=== PATIENT | female | born 1965 | race African-American/Black ===

== ENCOUNTER → 2016-02-23 | Outpatient (CLI) | payer MEDICARE, MEDICAID ==
--- NOTE | 2016-02-23 16:39 | XCELERA REPORT ---
[address] [address] Lower Extremity Venous Evaluation Name: JASPREET STAFFORD Age: 50 yrs Gender: Female : 1965 Patient Status: Outpatient Patient Location: Study Date: 02/23/2016 02:59 PM Procedure: Color flow and duplex imaging of the veins of the right lower extremity as well as the left Common Femoral vein. Reason For Study: PAIN IN RLE Ordering Physician: JULIA GOMEZ PA-C Performed By: Jo Wallace Right Sided Venous Evaluation Normal vessel filling wall to wall, compression and augmentation as well as Colour flow down to the infrageniculate veins. Left Sided Venous Evaluation The left common femoral vein is fully compressible. Spontaneous and phasic flow is present in the left common femoral vein. Interpretation Summary No duplex evidence of DVT or obstruction in the right lower extremity nor in the left Common Femoral vein. : JULIA GOMEZ PA-C > Aron Soriano
== END ==
LOC: SP 14:28
PROVIDERS: ATTEND Physician Assistant
DX: M79.661 Pain in right lower leg (principal)
CPT/HCPCS: 93971

== ENCOUNTER 2016-04-09 14:42 | Inpatient (IN) | payer MEDICARE, MEDICAID ==
[2016-04-09] MEDS ORDERED: HYDRALAZINE HCL INJ/PF 20 MG/1 ML SDV IV ONE (15:22)
[2016-04-09] MEDS ORDERED: ALBUTEROL SULFATE 0.083% NEB 2.5 MG/3 ML AMPUL NEB ONE (15:22)
--- NOTE | 2016-04-09 15:29 | ER Document Report ---
ED General - General Chief Complaint: Shortness Of Breath Stated Complaint: SHORTNESS OF BREATH Mode of Arrival: Medic Information source: Patient Notes: This is a 50-year-old -[place] female with a history of end-stage renal disease who is on daily peritoneal dialysis which she reports compliance with fluid sent to the ER from [facility] dialysis center after she presented for blood work and evaluation. While she was there she reported shortness of breath and a 20 pound weight gain and so she was sent to the ER for further evaluation. She was also noted to be hypertensive with a blood pressure systolic over 200 yet she reports compliance with her multiple antihypertensive medications. She does state that she has had constant sharp pains in her chest for several weeks. These pains are worse with coughing. She states she was seen by her primary care physician last week and started on some antibiotics for an upper respiratory infection. She's had no fevers or chills. She denies any abdominal pain. She has not been vomiting and she has been tolerating by mouth. Her last by mouth was a breakfast burrito from [employer] this morning. She states that she can tell when she is in volume overload because she has difficulty sleeping at night secondary to paroxysmal nocturnal dyspnea. TRAVEL OUTSIDE OF THE [place] IN LAST 30 DAYS: No - Related Data Allergies/Adverse Reactions: codeine [Codeine] Allergy (Verified 11/15/15 15:59) Nausea oxycodone HCl [From Percocet] Allergy (Verified 11/15/15 15:59) Nausea prochlorperazine edisylate [From Compazine] Allergy (Verified 11/15/15 15:59) Hallucinations prochlorperazine maleate [From Compazine] Allergy (Verified 11/15/15 15:59) Hallucinations propoxyphene napsylate [From Darvocet-N 100] Allergy (Verified 11/15/15 15:59) Past Medical History - General Information source: Patient, [facility]LY [facility] Records - Social History Smoking Status: Unknown if Ever Smoked Family History: Reviewed & Not Pertinent - Past Medical History Cardiac Medical History: Reports: Hx Congestive Heart Failure, Hx Hypercholesterolemia, Hx Hypertension Denies: Hx Heart Attack Pulmonary Medical History: Reports: Hx Pneumonia Denies: Hx Asthma, Hx Bronchitis, Hx COPD Neurological Medical History: Denies: Hx Seizures Endocrine Medical History: Reports: Hx Diabetes Mellitus Type 1, Hx Diabetes Mellitus Type 2 Renal/ Medical History: Reports: Hx End Stage Renal Disease, Hx Kidney Stones , Hx Peritoneal Dialysis GI Medical History: Reports: Hx Gastroesophageal Reflux Disease Musculoskeltal Medical History: Denies Hx Arthritis Psychiatric Medical History: Reports: Hx Depression Past Surgical History: Reports: Hx Abdominal Surgery - peritoneal dialysis fistula, Hx Hysterectomy - partial, Hx Tubal Ligation - Immunizations Immunizations up to date: No Hx Diphtheria, Pertussis, Tetanus Vaccination: Yes - 2013 Hx Pneumococcal Vaccination: 11/19/11 Review of Systems - Review of Systems Notes: REVIEW OF SYSTEMS: CONSTITUTIONAL : Denies fever, chills, or sweats. EENT: Denies eye, ear, throat, or mouth pain or symptoms. Denies nasal or sinus congestion. CARDIOVASCULAR: As per history of present illness RESPIRATORY: As per history of present illness GASTROINTESTINAL: Denies abdominal pain. Denies vomiting, or diarrhea. She does endorse nausea. GENITOURINARY: She still makes some urine. Denies difficulty urinating, painful urination, burning, frequency, or blood in urine. MUSCULOSKELETAL: Denies neck or back pain or joint pain SKIN: Denies rash or skin lesions. HEMATOLOGIC : Denies easy bruising or bleeding. NEUROLOGICAL: Denies altered mental status or loss of consciousness. Denies headache. . PSYCHIATRIC: Denies anxiety or stress or depression. ALL OTHER SYSTEMS REVIEWED AND NEGATIVE. Physical Exam - Vital signs Vitals: Pulse Ox 95 04/09/16 15:01 - Notes Notes: PHYSICAL EXAMINATION: GENERAL: Well-appearing, obese, and in no acute distress. Pleasant and conversant with no conversational dyspnea. She does prefer to sit upright. HEAD: Atraumatic, normocephalic. EYES: Pupils equal round and reactive to light, extraocular movements intact, sclera anicteric, conjunctiva are normal. ENT: nares patent, oropharynx clear without exudates. Moist mucous membranes. NECK: Normal range of motion, supple without lymphadenopathy LUNGS: Bibasilar rales. Good air movement bilaterally. No wheezes noted. HEART: Regular rate and rhythm without murmurs ABDOMEN: Soft, obese, nontender, normoactive bowel sounds. No guarding, no rebound. No masses appreciated. EXTREMITIES: Normal range of motion, 1+ pitting edema bilaterally lower extremities symmetric No cyanosis. NEUROLOGICAL: Cranial nerves grossly intact. Motor strength 5 over 5 bilateral upper and lower extremities. Sensation intact. PSYCH: Normal mood, normal affect. Course - Re-evaluation Re-evalutation: 04/09/16 16:49 Patient reevaluated. She states that she is breathing somewhat better after the neb but she still complains of feeling overall "terrible". We discussed her lab results as well as her chest x-ray. At this time I will attempt to get in touch with the patient's physical therapy attendant Dr. Moran. 04/09/16 17:[address] Moran. She agrees to consult and arrange the peritoneal dialysis orders as an inpatient. Discussed with Dr. Horvath who will admit. - Vital Signs Vital signs: Temp Pulse Resp BP Pulse Ox 97 F L 15 175/102 H 98 04/09/16 15:14 04/09/16 16:01 04/09/16 16:01 04/09/16 16:01 - Laboratory Result Diagrams: 04/09/16 15:40 04/09/16 15:40 Laboratory results interpreted by me: 04/09/16 04/09/16 15:40 15:40 Hgb 10.5 L Hct 33.1 L MCH 25.8 L MCHC 31.7 L RDW 19.4 H Chloride 96 L BUN 116 H Creatinine 16.79 H Est GFR ( Amer) 3 L Est GFR (Non-Af Amer) 2 L Glucose 113 H Discharge - Discharge Clinical Impression: End stage renal failure on dialysis Hypertension Qualifiers: Hypertension type: essential hypertension Qualified Code(s): I10 - Essential ( primary) hypertension Hypervolemia Qualifiers: Hypervolemia type: unspecified Qualified Code(s): E87.70 - Fluid overload, unspecified Condition: Fair Disposition: ADMITTED INPATIENT Admitting Provider: Hospitalist - Dr Horvath Unit Admitted: Telemetry
[2016-04-09 16:01] LABS: ABSOLUTE BASOPHILS # (AUTO) 0.1 10^3/uL (0.0-0.2); ABSOLUTE EOSINOPHILS # (AUTO) 0.2 10^3/uL (0.0-0.6); ABSOLUTE LYMPHOCYTES (AUTO) 1.6 10^3/uL (0.5-4.7); ABSOLUTE MONOCYTES (AUTO) 0.8 10^3/uL (0.1-1.4); ABSOLUTE NEUT (AUTO) 5.2 10^3/uL (1.7-8.2); BASOPHILS % (AUTO) 1.5 % (0-2); EOSINOPHILS % (AUTO) 2.7 % (0-6); HEMATOCRIT 33.1 % (36.0-47.0); HEMOGLOBIN 10.5 g/dL (12.0-15.5); HGB HCT DIFFERENCE -1.6; LYMPHOCYTES % (AUTO) 20.5 % (13-45); MEAN CORPUSCULAR HEMOGLOBIN 25.8 pg (27.0-33.4); MEAN CORPUSCULAR HGB CONC 31.7 g/dL (32.0-36.0); MEAN CORPUSCULAR VOLUME 82 fl (80-97); MONOCYTES % (AUTO) 9.7 % (3-13); RED BLOOD COUNT 4.06 10^6/uL (3.72-5.28); RED CELL DISTRIBUTION WIDTH 19.4 % (11.5-14.0); SEGMENTED NEUTROPHILS % (AUTO) 65.6 % (42-78)
[2016-04-09 16:20] LABS: ALANINE AMINOTRANSFERASE 37 U/L (9-52); ALBUMIN 3.8 g/dL (3.5-5.0); ALKALINE PHOSPHATASE 103 U/L (38-126); ANION GAP 17 (5-19); ASPARTATE AMINO TRANSFERASE 32 U/L (14-36); BILIRUBIN,TOTAL 0.5 mg/dL (0.2-1.3); CALCIUM 9.8 mg/dL (8.4-10.2); CARBON DIOXIDE 27 mmol/L (22-30); CHLORIDE 96 mmol/L (98-107); CREATINE KINASE 133 U/L (30-135); GLUCOSE 113 mg/dL (75-110); SODIUM 139.7 mmol/L (137-145)
[2016-04-09 16:28] LABS: BLOOD UREA NITROGEN 116 mg/dL (7-20)
[2016-04-09 16:29] LABS: CREATININE RESULT 16.79 mg/dL (0.52-1.25)
[2016-04-09 16:30] LABS: CREATINE KINASE MB 2.82 ng/mL (<4.55)
[2016-04-09 16:31] LABS: TROPONIN I 0.053 ng/mL
[2016-04-09] MEDS ORDERED: ONDANSETRON 4 MG TAB.RAPDIS PO PRN (17:49)
[2016-04-09] MEDS ORDERED: DEXTROSE 50%-WATER 25 GM/50 ML DISP.SYRIN IV PRN ×2 (17:52)
[2016-04-09] MEDS ORDERED: DEXTROSE 40% GEL 15 GM TUBE PO PRN ×2 (17:52)
[2016-04-09] MEDS ORDERED: GLUCAGON,HUMAN RECOMB 1 MG INJ IM PRN (17:52)
[2016-04-09] MEDS ORDERED: CARVEDILOL PO SCH (18:00)
--- NOTE | 2016-04-09 18:10 | PDOC H&P ---
History of Present Illness Admission Date/PCP: CALVIN MELGAR DO Patient complains of: Shortness of breath and weight gain History of Present Illness: JASPREET STAFFORD is a 50 year old female with a history of type I diabetes with diabetic nephropathy on chronic peritoneal dialysis who presents with signs and symptoms of congestive heart failure. The patient reports that over the last several days she's had worsening shortness of breath as well as orthopnea and PND. She also reports having some lower extremity edema and has about 15 feet dyspnea on exertion. The patient has been doing her peritoneal dialysis as usual however she went to [facility] today and was found to have a 20 pound weight gain by her report. Patient with Cipro and is here and the patient is to be evaluated by nephrology for evaluation of her heart failure. The patient has had chest pain for the last several days but reports that it's been a sharp stabbing pain located in the substernal area. This last only a few seconds and then resolves and is not related to exertion. She reports that she has been compliant with her peritoneal dialysis regiment and has been doing her fluid exchanges as she always has done. She denies any abdominal pain and denies any change in the color of her peritoneal dialysate. She is noted have very elevated blood pressures and she does report that she has been compliant with her medications. Past Medical History Cardiac Medical History: Reports: Congestive Heart Failure, Hyperlipidema, Hypertension Denies: Myocardial Infarction Pulmonary Medical History: Reports: Asthma, Pneumonia Denies: Bronchitis, Chronic Obstructive Pulmonary Disease (COPD) EENT Medical History: Reports: None Neurological Medical History: Reports: None Denies: Seizures Endocrine Medical History: Reports: Diabetes Mellitus Type 1 Renal/ Medical History: Reports: End Stage Renal Disease Malignancy Medical History: Reports: None GI Medical History: Reports: Gastroesophageal Reflux Disease Musculoskeltal Medical History: Denies: Arthritis Psychiatric Medical History: Reports: Depression Traumatic Medical History: Reports: None Hematology: Reports: Anemia Infectious Medical History: Reports: None Past Surgical History Past Surgical History: Reports: Hysterectomy - partial, Tubal Ligation Social History Information Source: Patient Lives with: Family Smoking Status: Never Smoker Frequency of Alcohol Use: None Hx Recreational Drug Use: No Drugs: None Hx Prescription Drug Abuse: No - Advance Directive Resuscitation Status: Full Code Family History Family History: Mother 70 alive and has hypertension and coronary artery disease. Father 77 alive and has diabetes, hypertension, chronic renal failure. Parental Family History Reviewed: Yes Children Family History Reviewed: No Sibling(s) Family History Reviewed.: No Medication/Allergy Home Medications: Aspirin [Ecotrin 81 mg EC Tablet] 81 mg PO DAILY 12/04/11 Carvedilol [Coreg] 1 tab PO BID 10/03/13 Hydralazine HCl [Apresoline 50 mg Tablet] 100 mg PO Q8 #0 tablet 10/07/13 Isosorbide Mononitrate [Imdur 30 mg Tablet.er] 30 mg PO DAILY #0 tab.er.24h Calcium Acetate [Phoslo 667 mg Capsule] 667 mg PO MEALS #0 capsule 10/16/13 Furosemide [Lasix 40 mg Tablet] 40 mg PO BID 01/21/14 Insulin Glargine,Hum.rec.anlog [Lantus Insulin 100 Unit/mL] 50 unit SUBCUT QHS 01/22/14 Clonidine HCl [Catapres 0.2 mg Tablet] 0.2 mg PO QHS 11/15/14 Omeprazole [Prilosec] 20 mg PO DAILY 11/15/14 Sevelamer Carbonate [Renvela] 2,100 mg PO AC 11/15/14 Amlodipine Besylate 5 mg PO DAILY 04/12/15 Escitalopram Oxalate [Lexapro 10 mg Tablet] 20 mg PO DAILY 04/12/15 Cetirizine HCl [Zyrtec 10 mg Tablet] 1 tab PO DAILY #15 tablet 04/14/15 Benzonatate [Tessalon Perles 100 mg Capsule] 100 mg PO Q8HP PRN #20 capsule Calcitriol [Rocaltrol 0.25 mcg Capsule] 0.25 mcg PO MoTuWeThFr@1000 capsule Calcitriol [Rocaltrol 0.25 mcg Capsule] 0.5 mcg PO SuSa@1000 capsule 08/08/15 Fluticasone/Salmeterol [Advair 250-50 Diskus 14 Dose/Diskus] 1 inh IH Q12 #1 inhaler 08/08/15 Cyclobenzaprine HCl [Flexeril 10 mg Tablet] 10 mg PO TIDP PRN #10 tab 09/27/15 Hydrocodone/Acetaminophen [[place] 5-325 mg Tablet] 1 - 2 tab PO Q4 PRN #15 tablet 11/09/15 Benzonatate [Tessalon Perle 100 mg Capsule] 100 mg PO Q8HP PRN #40 cap 12/15/15 Allergies/Adverse Reactions: codeine [Codeine] Allergy (Verified 11/15/15 15:59) Nausea oxycodone HCl [From Percocet] Allergy (Verified 11/15/15 15:59) Nausea prochlorperazine edisylate [From Compazine] Allergy (Verified 11/15/15 15:59) Hallucinations prochlorperazine maleate [From Compazine] Allergy (Verified 11/15/15 15:59) Hallucinations propoxyphene napsylate [From Darvocet-N 100] Allergy (Verified 11/15/15 15:59) Review of Systems Constitutional: PRESENT: weight gain. ABSENT: chills, fever(s), headache(s) Eyes: ABSENT: visual disturbances Ears: ABSENT: hearing changes Cardiovascular: PRESENT: chest pain, dyspnea on exertion, edema, orthropnea. ABSENT: palpitations Respiratory: PRESENT: cough, dyspnea. ABSENT: hemoptysis, sputum Gastrointestinal: ABSENT: abdominal pain, constipation, diarrhea, hematemesis, hematochezia, nausea, vomiting Genitourinary: ABSENT: dysuria, hematuria Musculoskeletal: ABSENT: joint swelling Integumentary: ABSENT: rash, wounds Neurological: ABSENT: abnormal gait, abnormal speech, confusion, dizziness, focal weakness, syncope Psychiatric: ABSENT: anxiety, depression Endocrine: ABSENT: cold intolerance, heat intolerance, polydipsia, polyuria Hematologic/Lymphatic: ABSENT: easy bleeding, easy bruising Physical Exam Vital Signs: Temp Pulse Resp BP Pulse Ox 97 F L 12 175/102 H 100 04/09/16 15:14 04/09/16 17:19 04/09/16 16:01 04/09/16 17:19 Intake & Output 04/08/16 04/09/16 04/10/16 06:59 06:59 06:59 Weight 158 kg General appearance: PRESENT: no acute distress, morbidly obese Head exam: PRESENT: atraumatic, normocephalic Eye exam: PRESENT: conjunctiva pink, EOMI, PERRLA. ABSENT: scleral icterus Ear exam: PRESENT: normal external ear exam Mouth exam: PRESENT: moist, tongue midline Neck exam: ABSENT: carotid bruit, JVD, lymphadenopathy, thyromegaly Respiratory exam: PRESENT: clear to auscultation shira. ABSENT: rales, rhonchi, wheezes Cardiovascular exam: PRESENT: RRR. ABSENT: diastolic murmur, rubs, systolic murmur Pulses: PRESENT: normal dorsalis pedis pul Vascular exam: PRESENT: normal capillary refill GI/Abdominal exam: PRESENT: normal bowel sounds, soft, other - Peritoneal dialysis catheter in the left lower quadrant with no tenderness. ABSENT: distended, guarding, mass, organolmegaly, rebound, tenderness Rectal exam: PRESENT: deferred Extremities exam: PRESENT: pedal edema, +2 edema. ABSENT: calf tenderness, clubbing Neurological exam: PRESENT: alert, awake, oriented to person, oriented to place , oriented to time, oriented to situation, CN II-XII grossly intact. ABSENT: motor sensory deficit Psychiatric exam: PRESENT: appropriate affect Skin exam: PRESENT: dry, intact, warm. ABSENT: cyanosis, rash Results Laboratory Results: 04/09/16 15:40 04/09/16 15:40 04/09/16 04/09/16 15:40 15:40 WBC 8.0 RBC 4.06 Hgb 10.5 L Hct 33.1 L MCV 82 MCH 25.8 L MCHC 31.7 L RDW 19.4 H Plt Count 198 Seg Neutrophils % 65.6 Lymphocytes % 20.5 Monocytes % 9.7 Eosinophils % 2.7 Basophils % 1.5 Absolute Neutrophils 5.2 Absolute Lymphocytes 1.6 Absolute Monocytes 0.8 Absolute Eosinophils 0.2 Absolute Basophils 0.1 Sodium 139.7 Potassium 5.0 Chloride 96 L Carbon Dioxide 27 Anion Gap 17 BUN 116 H Creatinine 16.79 H Est GFR ( Amer) 3 L Est GFR (Non-Af Amer) 2 L Glucose 113 H Calcium 9.8 Total Bilirubin 0.5 AST 32 ALT 37 Alkaline Phosphatase 103 Total Protein 7.0 Albumin 3.8 04/09/16 04/09/16 15:40 15:40 Creatine Kinase 133 CK-MB (CK-2) 2.82 Troponin I 0.053 Impressions: Chest X-Ray 04/09/16 14:49 IMPRESSION: No significant interval change. No acute findings. Other findings as noted above Assessment & Plan - Diagnosis (1) Acute congestive heart failure Qualifiers: Congestive heart failure type: unspecified congestive heart failure type Qualified Code(s): I50.9 - Heart failure, unspecified Is this a current diagnosis for this admission?: YesPlan: Patient has a 20 pound weight gain along with orthopnea, PND, dyspnea on exertion consistent with acute congestive heart failure. Patient has a history of a normal ejection fraction but does have diastolic dysfunction. The patient is a peritoneal dialysis patient and Dr. Dhaliwal will be writing dialysis orders. Patient does make some urine so we will give IV Lasix. We will try to lower her blood pressure by adding on nitroglycerin paste. We will continue her outpatient antihypertensives. (2) Chronic renal failure, stage 5 Is this a current diagnosis for this admission?: YesPlan: Patient is followed by Dr. Fleming. Patient is a chronic peritoneal dialysis patient and has been compliant with her regiment. (3) Chest pain Is this a current diagnosis for this admission?: YesPlan: The chest pain appears to be noncardiac by her description however we will check serial cardiac enzymes. Given her congestive heart failure and hypertension most likely be elevated however will follow to make certain that she does not have an acute rise in her cardiac enzymes. (4) Hypertension Qualifiers: Hypertension type: essential hypertension Qualified Code(s): I10 - Essential (primary) hypertension Is this a current diagnosis for this admission?: YesPlan: We'll continue to oral outpatient and hypertensives and had on Lasix IV. Patient also will be added on with Nitropaste to help lower blood pressure (5) Diabetes mellitus type 1 Qualifiers: Diabetes mellitus complication status: with kidney complications Diabetes mellitus complication detail: with chronic kidney disease Chronic kidney disease stage: on chronic dialysis Qualified Code(s): E10.22 - Type 1 diabetes mellitus with diabetic chronic kidney disease; N18.1 - Chronic kidney disease, stage 1 Is this a current diagnosis for this admission?: YesPlan: The patient normally takes Lantus 15 units daily at bedtime. We will continue with that along with sliding scale insulin. (6) Anemia Qualifiers: Anemia type: other cause Other causes of anemia: chronic disease, kidney Qualified Code(s): N18.9 - Chronic kidney disease, unspecified; D63.1 - Anemia in chronic kidney disease Is this a current diagnosis for this admission?: YesPlan: Patient has anemia of chronic disease secondary to her renal failure. - Time Time Spent: 50 to 70 Minutes - Inpatient Certification Medical Necessity: Need Close Monitoring Due to Risk of Patient Decompensation
[2016-04-09] MEDS ORDERED: FUROSEMIDE INJ/PF 100 MG/10 ML SDV IV ONE (20:00)
--- NOTE | 2016-04-09 20:03 | PDOC CONSULTATION ---
Consultation Consult Date: 04/09/16 Attending physician:: KELI HORVATH Consult reason:: I was asked by Dr. Horvath to manage patient with ESRD admitted for worsening pulmonary edema. History of Present Illness Admission Date/PCP: 04/09/16 17:49 CALVIN MELGAR DO History of Present Illness: JASPREET STAFFORD is a 50 year old female with a history of type 2 diabetes with diabetic nephropathy and hypertensive nephrosclerosis on chronic peritoneal dialysis who presents with signs and symptoms of congestive heart failure. The patient reports that over the last several days she's had worsening shortness of breath as well as orthopnea and PND. She also reports having some lower extremity edema and has about 15 feet dyspnea on exertion. The patient has been doing her peritoneal dialysis as usual however she went to [facility] today and was found to have a 20 pound weight gain by her report. The patient has had chest pain for the last several days but reports that it's been a sharp stabbing pain located in the substernal area. This last only a few seconds and then resolves and is not related to exertion. She reports that she has been compliant with her peritoneal dialysis regiment and has been doing her fluid exchanges as she always has done. She denies any abdominal pain and denies any change in the color of her peritoneal dialysate. She is noted have very elevated blood pressures and she does report that she has been compliant with her medications. She also admits that she ate at a [employer] yesterday eating at 12 ounces of steak. Patient tells me that she started with some dry cough but no fever nor chills along with her shortness of breath and some pleuritic chest pain last about days ago. She went to her primary care provider, Tejal Preciado who prescribed her antibiotics which is most likely Z-Alfredito because she has taken her last pill today. She said she couldn't sleep very well especially last night so she was getting up at 3 AM and finally at 6 AM. When she got up at 6 AM her blood pressure was noted to have systolic blood pressure of 200+ over 100+. She went to [facility] for nurse visit and that's when she was noted to be above her dry weight and she complained that she is not really feeling good so our [facility] PD nurses called EMS and she was brought to the emergency room. In terms of her peritoneal dialysis, she does do continuous cycler peritoneal dialysis at night with a last fill option and the midday exchange for a total of 6 exchanges using 2.5 L fill volume. She claims that she is using alternating 4.25 and 2.5% solution and everything was going well. She denies any problem on her peritoneal dialysis regimen. Past Medical History Cardiac Medical History: Reports: CHF-Diastolic, Hyperlipidemia, Hypertension- primary Pulmonary Medical History: Reports: Asthma, Pneumonia, Sleep Apnea Endocrine Medical History: Reports: Diabetes Mellitus Type 2 Complications of Diabetes: Reports: Nephropathy Renal/ Medical History: Reports: End Stage Renal Disease, Hyperphosphatemia, Nephrolithiasis, Renal Osteodystropy, Secondary Hyperparathyroidism GI Medical History: Reports: Gastroesophageal Reflux Disease Psychiatric Medical History: Reports: Depression Hematology Medical History: Reports Anemia of Chronic Kidney Disease Past Surgical History Past Surgical History: Reports: Hysterectomy - partial, Tubal Ligation, Other - Peritoneal dialysis catheter placement Social History Information Source: Patient Lives with: Alone, Family Smoking Status: Never Smoker Frequency of Alcohol Use: None Hx Recreational Drug Use: No Drugs: None Hx Prescription Drug Abuse: No - Advance Directive Resuscitation Status: Full Code Family History Family History: Chronic Kidney Disease, DM, Hypertension - Father, Other - Heart disease on her grandmother Parental Family History Reviewed: Yes Children Family History Reviewed: NA Sibling(s) Family History Reviewed.: NA Medication/Allergy Home Medications: Aspirin [Ecotrin 81 mg EC Tablet] 81 mg PO DAILY 12/04/11 Carvedilol [Coreg] 1 tab PO BID 10/03/13 Hydralazine HCl [Apresoline 50 mg Tablet] 100 mg PO Q8 #0 tablet 10/07/13 Isosorbide Mononitrate [Imdur 30 mg Tablet.er] 30 mg PO DAILY #0 tab.er.24h Calcium Acetate [Phoslo 667 mg Capsule] 667 mg PO MEALS #0 capsule 10/16/13 Furosemide [Lasix 40 mg Tablet] 40 mg PO BID 01/21/14 Insulin Glargine,Hum.rec.anlog [Lantus Insulin 100 Unit/mL] 50 unit SUBCUT QHS 01/22/14 Clonidine HCl [Catapres 0.2 mg Tablet] 0.2 mg PO QHS 11/15/14 Omeprazole [Prilosec] 20 mg PO DAILY 11/15/14 Sevelamer Carbonate [Renvela] 2,100 mg PO AC 11/15/14 Amlodipine Besylate 5 mg PO DAILY 04/12/15 Escitalopram Oxalate [Lexapro 10 mg Tablet] 20 mg PO DAILY 04/12/15 Cetirizine HCl [Zyrtec 10 mg Tablet] 1 tab PO DAILY #15 tablet 04/14/15 Benzonatate [Tessalon Perles 100 mg Capsule] 100 mg PO Q8HP PRN #20 capsule Calcitriol [Rocaltrol 0.25 mcg Capsule] 0.25 mcg PO MoTuWeThFr@1000 capsule Calcitriol [Rocaltrol 0.25 mcg Capsule] 0.5 mcg PO SuSa@1000 capsule 08/08/15 Fluticasone/Salmeterol [Advair 250-50 Diskus 14 Dose/Diskus] 1 inh IH Q12 #1 inhaler 08/08/15 Cyclobenzaprine HCl [Flexeril 10 mg Tablet] 10 mg PO TIDP PRN #10 tab 09/27/15 Hydrocodone/Acetaminophen [Hoskins 5-325 mg Tablet] 1 - 2 tab PO Q4 PRN #15 tablet 11/09/15 Benzonatate [Tessalon Perle 100 mg Capsule] 100 mg PO Q8HP PRN #40 cap 12/15/15 Allergies/Adverse Reactions: codeine [Codeine] Allergy (Verified 11/15/15 15:59) Nausea oxycodone HCl [From Percocet] Allergy (Verified 11/15/15 15:59) Nausea prochlorperazine edisylate [From Compazine] Allergy (Verified 11/15/15 15:59) Hallucinations prochlorperazine maleate [From Compazine] Allergy (Verified 11/15/15 15:59) Hallucinations propoxyphene napsylate [From Darvocet-N 100] Allergy (Verified 11/15/15 15:59) Review of Systems All systems: reviewed and no additional remarkable complaints except as stated Review of Systems: Constitutional: ABSENT: chills, fatigue, fever(s), headache(s), weight loss; she has a weight gain of 20 pounds from dry weight. Eyes: ABSENT: visual disturbances Ears: ABSENT: hearing changes Cardiovascular: ABSENT: orthropnea, palpitations; she has shortness of breath, lower extremity edema, and pleuritic chest pains Respiratory: ABSENT: hemoptysis, she has dry cough Gastrointestinal: ABSENT: abdominal pain, constipation, diarrhea, hematemesis, hematochezia; admits nausea and vomiting which just started here in the emergency room Genitourinary: ABSENT: dysuria, hematuria Musculoskeletal: ABSENT: joint swelling Integumentary: ABSENT: rash, wounds Neurological: ABSENT: abnormal gait, abnormal speech, confusion, dizziness, focal weakness, numbness, syncope Psychiatric: ABSENT: anxiety, depression Endocrine: ABSENT: cold intolerance, heat intolerance, polydipsia, polyuria Hematologic/Lymphatic: ABSENT: easy bleeding, easy bruising, lymphadenopathy Physical Exam Vital Signs: Temp Pulse Resp BP Pulse Ox 97 F L 17 170/105 H 98 04/09/16 15:14 04/09/16 19:00 04/09/16 17:21 04/09/16 19:00 Exam: General appearance: no acute distress, cooperative, well-developed, well- nourished, she appears ill Head exam: PRESENT: atraumatic, normocephalic Eye exam: PRESENT: Conjunctiva [place], EOMI, PERRLA. Positive periorbital edema ABSENT: conjunctival injection, scleral icterus Mouth exam: PRESENT: moist, neck supple, tongue midline Neck exam: PRESENT: full ROM. ABSENT: carotid bruit, JVD, lymphadenopathy, thyromegaly Respiratory exam: PRESENT: Diminished to auscultation bilaterally. ABSENT: rales, rhonchi, stridor, wheezes Cardiovascular exam: PRESENT: RRR, +S1, +S2. ABSENT: systolic murmur Pulses: PRESENT: normal radial pulses, normal dorsalis pedis pulses GI/Abdominal exam: PRESENT: normal bowel sounds, soft. ABSENT: guarding, mass, tenderness Rectal exam: deferred Extremities exam: PRESENT: full ROM. ABSENT: calf tenderness; grade 1 bilateral pitting pedal edema Musculoskeletal: PRESENT: full ROM. ABSENT: deformity Neurological exam: PRESENT: alert, Awake, Oriented to person, Oriented to place , Oriented to time, reflexes normal, CN II-XII grossly intact. ABSENT: motor sensory deficit Psychiatric exam: PRESENT: appropriate affect, normal mood. ABSENT: homicidal ideation, suicidal ideation Skin exam: PRESENT: intact, dry, warm. ABSENT: rash Results Laboratory Results: Laboratory 04/09/16 04/09/16 04/09/16 15:40 15:40 15:40 WBC 8.0 RBC 4.06 Hgb 10.5 L Hct 33.1 L MCV 82 MCH 25.8 L MCHC 31.7 L RDW 19.4 H Plt Count 198 Seg Neutrophils % 65.6 Lymphocytes % 20.5 Monocytes % 9.7 Eosinophils % 2.7 Basophils % 1.5 Absolute Neutrophils 5.2 Absolute Lymphocytes 1.6 Absolute Monocytes 0.8 Absolute Eosinophils 0.2 Absolute Basophils 0.1 Sodium 139.7 Potassium 5.0 Chloride 96 L Carbon Dioxide 27 Anion Gap 17 BUN 116 H Creatinine 16.79 H Est GFR ( Amer) 3 L Est GFR (Non-Af Amer) 2 L Glucose 113 H Calcium 9.8 Total Bilirubin 0.5 Direct Bilirubin 0.0 AST 32 ALT 37 Alkaline Phosphatase 103 Creatine Kinase 133 CK-MB (CK-2) 2.82 Troponin I 0.053 Total Protein 7.0 Albumin 3.8 Impressions: Chest X-Ray 04/09/16 14:49 IMPRESSION: No significant interval change. No acute findings. Other findings as noted above Assessment & Plan - Diagnosis (1) ESRD (end stage renal disease) on dialysis Is this a current diagnosis for this admission?: YesPlan: This is due to combination of hypertensive nephrosclerosis and diabetic nephropathy. And is on maintenance cycler peritoneal dialysis at home. Since she is presenting with acute pulmonary edema I will do rapid exchanges for her peritoneal dialysis regimen for the next 24 hours or so. We will do peritoneal dialysis exchanges manually every 3 hours, 2.5 L fill volume using 4.25% solution. If the systolic blood pressure goes down to less than 120, use 2.5% solution. We will send PD fluid cell count and culture just to check that she doesn't have any peritonitis although likelihood is very low. Continue daily exits site care. We will try to do ultrafiltration so that she can be in her dry weight in the next 24-48 hours. Peritoneal dialysis regimen discussed with her nurse in the emergency room. (2) Acute congestive heart failure Qualifiers: Congestive heart failure type: diastolic Qualified Code(s): I50.31 - Acute diastolic (congestive) heart failure Is this a current diagnosis for this admission?: Yes (3) Hypertensive urgency Is this a current diagnosis for this admission?: YesPlan: This is most likely just due to fluid overload. We will do peritoneal dialysis as stated above. Hopefully if we get good ultrafiltration blood pressure will come down. Resume all home blood pressure medications. (4) Anemia in chronic kidney disease (CKD) Is this a current diagnosis for this admission?: YesPlan: She is maintained on Procrit then she doesn't need it at this point. (5) Chest pain Is this a current diagnosis for this admission?: YesPlan: Pleuritic in nature. - Notes Notes: Thank you very much for this consultation. I discussed the case with Dr. Horvath the emergency room physician earlier, with the patient and her mother. Orders also discussed with her nurse in the emergency room. - Time Time Spent: 50 to 70 Minutes
--- NOTE | 2016-04-09 20:07 | EKG REPORT ---
SEVERITY:- ABNORMAL ECG - SINUS RHYTHM NONSPECIFIC INTRAVENTRICULAR CONDUCTION DELAY : Confirmed by: Camille Pollock 09-Apr-2016 20:07:17
[2016-04-09] MEDS: HYDRALAZINE HCL INJ/PF 20 MG/1 ML SDV IV PRN (20:55)
[2016-04-09 22:42] LABS: CREATINE KINASE MB 3.49 ng/mL (<4.55); TROPONIN I 0.056 ng/mL
[2016-04-09] MEDS: NITROGLYCERIN 2% OINTMENT 1 GM PACKET TP SCH (22:50)
[2016-04-09] MEDS: CARVEDILOL 12.5 MG TABLET PO SCH (22:52)
[2016-04-09] MEDS: HYDRALAZINE HCL 50 MG TABLET PO SCH (22:52)
[2016-04-09] MEDS: CLONIDINE HCL 0.2 MG TABLET PO SCH (22:54)
[2016-04-09] MEDS: ACETAMINOPHEN 325 MG TABLET PO PRN (22:54)
[2016-04-09] MEDS: FAMOTIDINE 20 MG TABLET PO SCH (22:54)
[2016-04-09] MEDS ORDERED: INSULIN GLARGINE,HUM.REC.ANLOG 1,000 UNIT/10 ML UNIT SUBCUT ONE (23:13)
[2016-04-09] MEDS: INSULIN GLARGINE,HUM.REC.ANLOG 300 UNIT/3 ML INSULN.PEN SUBCUT SCH (23:17)
[2016-04-10 00:26] LABS: FLUID TYPE PERITONEAL
[2016-04-10 00:27] LABS: FLUID APPEARANCE CLEAR
[2016-04-10 00:41] LABS: FLUID RBC DILUENT USED NONE USED; FLUID RBC DILUTION FACTOR 1; FLUID RBC SIDE 1 0; FLUID RBC SIDE 2 0; TOTAL RBC SQUARES COUNTED FLD 225
[2016-04-10] MEDS ORDERED: FLUTICASONE/SALMETEROL DISKUS 250-50 MCG/DOSE IH ONE (01:41)
[2016-04-10] MEDS: FLUTICASONE/SALMETEROL DISKUS 250-50 MCG/DOSE IH SCH ×3 (01:45→21:34)
[2016-04-10] MEDS ORDERED: HYDRALAZINE HCL INJ/PF 20 MG/1 ML SDV ONE (01:55)
[2016-04-10] MEDS: HYDRALAZINE HCL INJ/PF 20 MG/1 ML SDV IV PRN (02:01)
[2016-04-10] MEDS ORDERED: HYDRALAZINE HCL INJ/PF 20 MG/1 ML SDV IV PRN (02:11)
[2016-04-10 02:32] LABS: APPEARANCE,URINE CLOUDY; BILIRUBIN,URINE NEGATIVE (NEGATIVE); GLUCOSE, URINE 150 mg/dL (NEGATIVE); KETONES,URINE NEGATIVE (NEGATIVE); LEUKOCYTE ESTERASE,URINE TRACE (NEGATIVE); NITRITE,URINE NEGATIVE (NEGATIVE); PROTEIN,URINE >=500 mg/dL (NEGATIVE); UROBILINOGEN,URINE NEGATIVE mg/dL (<2.0)
[2016-04-10] MEDS: NITROGLYCERIN 2% OINTMENT 1 GM PACKET TP SCH ×4 (02:49→21:34)
[2016-04-10] MEDS: IPRATROPIUM/ALBUTEROL 0.5-2.5 MG/3 ML AMPUL NEB PRN ×2 (03:36→17:15)
[2016-04-10] MEDS: ACETAMINOPHEN 325 MG TABLET PO PRN ×2 (04:16→13:54)
[2016-04-10 04:41] LABS: HEMATOCRIT 31.9 % (36.0-47.0); HEMOGLOBIN 10.2 g/dL (12.0-15.5); HGB HCT DIFFERENCE -1.3; MEAN CORPUSCULAR HEMOGLOBIN 25.9 pg (27.0-33.4); MEAN CORPUSCULAR VOLUME 81 fl (80-97); RED BLOOD COUNT 3.95 10^6/uL (3.72-5.28); RED CELL DISTRIBUTION WIDTH 19.4 % (11.5-14.0); WHITE BLOOD COUNT 8.8 10^3/uL (4.0-10.5)
[2016-04-10 05:07] LABS: ANION GAP 19 (5-19); BLOOD UREA NITROGEN 119 mg/dL (7-20); CALCIUM 9.9 mg/dL (8.4-10.2); CARBON DIOXIDE 23 mmol/L (22-30); CHLORIDE 97 mmol/L (98-107); CREATINE KINASE 148 U/L (30-135); GLUCOSE 196 mg/dL (75-110); MAGNESIUM 2.1 mg/dL (1.6-2.3); PHOSPHORUS 8.7 mg/dL (2.5-4.5); POTASSIUM 4.5 mmol/L (3.6-5.0); SODIUM 138.8 mmol/L (137-145)
[2016-04-10 05:14] LABS: CREATININE RESULT 16.16 mg/dL (0.52-1.25)
[2016-04-10 05:19] LABS: CREATINE KINASE MB 3.58 ng/mL (<4.55); TROPONIN I 0.071 ng/mL
[2016-04-10] MEDS: FUROSEMIDE INJ/PF 100 MG/10 ML SDV IV SCH ×2 (05:25→18:11)
[2016-04-10] MEDS: HYDRALAZINE HCL 50 MG TABLET PO SCH ×3 (05:25→21:34)
[2016-04-10] MEDS ORDERED: FUROSEMIDE INJ/PF 20 MG/2 ML SDV IV SCH (06:00)
[2016-04-10] MEDS ORDERED: SEVELAMER CARBONATE PO SCH (08:00)
[2016-04-10] MEDS: FAMOTIDINE 20 MG TABLET PO SCH ×2 (09:06→21:33)
[2016-04-10] MEDS: ASPIRIN 81 MG TABLET, ENT COATED PO SCH (09:06)
[2016-04-10] MEDS: CALCIUM ACETATE 667 MG CAPSULE PO SCH ×3 (09:06→18:11)
[2016-04-10] MEDS: LANSOPRAZOLE 15 MG TAB.RAP.DR PO SCH (09:06)
[2016-04-10] MEDS: CETIRIZINE 10 MG TABLET PO SCH (09:07)
[2016-04-10] MEDS: SEVELAMER HCL 400 MG TABLET PO SCH ×3 (09:07→18:11)
[2016-04-10] MEDS: CARVEDILOL 12.5 MG TABLET PO SCH ×2 (09:08→21:33)
[2016-04-10] MEDS: ISOSORBIDE MONONITRATE 30 MG TAB.ER.24H PO SCH (09:08)
[2016-04-10] MEDS ORDERED: (PENDING PHARMACY ID) (Omeprazole [Prilosec] 20 MG) PO SCH (10:00)
[2016-04-10] MEDS ORDERED: AMLODIPINE BESYLATE 5 MG TABLET PO SCH (10:00)
[2016-04-10 12:03] LABS: CREATINE KINASE MB 3.29 ng/mL (<4.55); TROPONIN I 0.064 ng/mL
[2016-04-10] MEDS: INSULIN REG, HUMAN 100 UNIT/ML 3 ML VIAL (PYX) SUBCUT PRN (12:37)
--- NOTE | 2016-04-10 15:35 | PDOC PROGRESS REPORT ---
Subjective Progress Note for:: 04/10/16 Subjective:: Patient feels better today. Coughing is much better as well. No purulent expectoration reported. Denies any chills and fever. Pleurisy likewise significantly improved. Patient reports weight gain of about 20 pounds. Patient reports postdialysis weight improved by about 4 kg. Or diarrhea. No nausea or vomiting. Still bringing some urine output. Physical Exam Vital Signs: Temp Pulse Resp BP Pulse Ox 97.6 F 76 16 139/70 H 97 04/10/16 12:20 04/10/16 12:20 04/10/16 12:20 04/10/16 12:20 04/10/16 12:20 Intake & Output 04/09/16 04/10/16 04/11/16 06:59 06:59 06:59 Intake Total 8000 2830 Output Total 8750 3700 Balance -750 -870 Weight 155.8 kg 155.2 kg General appearance: PRESENT: no acute distress, cooperative, morbidly obese Head exam: PRESENT: normocephalic Eye exam: PRESENT: EOMI Mouth exam: PRESENT: moist, neck supple Neck exam: ABSENT: JVD Respiratory exam: PRESENT: clear to auscultation shira, decreased breath sounds. ABSENT: rhonchi, wheezes Cardiovascular exam: PRESENT: RRR. ABSENT: gallop GI/Abdominal exam: PRESENT: distended - Obese, hypoactive bowel sounds, soft. ABSENT: tenderness Extremities exam: PRESENT: +1 edema Neurological exam: PRESENT: alert, awake, oriented to situation Skin exam: PRESENT: dry, warm. ABSENT: cyanosis Results Laboratory Results: 04/10/16 04:25 04/10/16 04:25 04/09/16 04/10/16 04/10/16 23:00 01:50 04:25 WBC 8.8 RBC 3.95 Hgb 10.2 L Hct 31.9 L MCV 81 MCH 25.9 L MCHC 32.0 RDW 19.4 H Plt Count 217 Sodium Potassium Chloride Carbon Dioxide Anion Gap BUN Creatinine Est GFR ( Amer) Est GFR (Non-Af Amer) Glucose Calcium Phosphorus Magnesium Urine Color YELLOW Urine Appearance CLOUDY Urine pH 7.0 Ur Specific [place] 1.010 Urine Protein >=500 H Urine Glucose (UA) 150 H Urine Ketones NEGATIVE Urine Blood NEGATIVE Urine Nitrite NEGATIVE Ur Leukocyte Esterase TRACE H Urine WBC (Auto) 27 Urine RBC (Auto) 3 Fluid Type PERITONEAL Fluid Source ABDOMEN Fluid Color COLORLESS Fluid Appearance CLEAR Fluid Viscosity LIQUID Fluid WBC 4 Fluid RBC 0 04/10/16 04:25 WBC RBC Hgb Hct MCV MCH MCHC RDW Plt Count Sodium 138.8 Potassium 4.5 Chloride 97 L Carbon Dioxide 23 Anion Gap 19 BUN 119 H Creatinine 16.16 H Est GFR ( Amer) 3 L Est GFR (Non-Af Amer) 2 L Glucose 196 H Calcium 9.9 Phosphorus 8.7 H Magnesium 2.1 Urine Color Urine Appearance Urine pH Ur Specific Deputy Urine Protein Urine Glucose (UA) Urine Ketones Urine Blood Urine Nitrite Ur Leukocyte Esterase Urine WBC (Auto) Urine RBC (Auto) Fluid Type Fluid Source Fluid Color Fluid Appearance Fluid Viscosity Fluid WBC Fluid RBC 04/09/16 04/09/16 04/10/16 22:00 22:00 04:25 Creatine Kinase 146 H 148 H CK-MB (CK-2) 3.49 Troponin I 0.056 04/10/16 04/10/16 04:25 11:25 Creatine Kinase CK-MB (CK-2) 3.58 3.29 Troponin I 0.071 0.064 Impressions: Chest X-Ray 04/09/16 14:49 IMPRESSION: No significant interval change. No acute findings. Other findings as noted above Assessment & Plan - Diagnosis (1) Acute congestive heart failure Qualifiers: Congestive heart failure type: diastolic Qualified Code(s): I50.31 - Acute diastolic (congestive) heart failure Is this a current diagnosis for this admission?: Yes (2) Anemia in chronic kidney disease (CKD) Is this a current diagnosis for this admission?: Yes (3) ESRD (end stage renal disease) on dialysis Is this a current diagnosis for this admission?: Yes (4) Abnormal urinalysis Is this a current diagnosis for this admission?: Yes (5) Hypertension Qualifiers: Hypertension type: essential hypertension Qualified Code(s): I10 - Essential (primary) hypertension Is this a current diagnosis for this admission?: Yes (6) Diabetes mellitus type 1 Qualifiers: Diabetes mellitus complication status: with kidney complications Diabetes mellitus complication detail: with chronic kidney disease Chronic kidney disease stage: on chronic dialysis Qualified Code(s): E10.22 - Type 1 diabetes mellitus with diabetic chronic kidney disease; N18.1 - Chronic kidney disease, stage 1 Is this a current diagnosis for this admission?: Yes (7) GERD (gastroesophageal reflux disease) Qualifiers: Esophagitis presence: esophagitis presence not specified Qualified Code(s): K21.9 - Gastro-esophageal reflux disease without esophagitis Is this a current diagnosis for this admission?: Yes (8) Asthma Qualifiers: Asthma severity: unspecified severity Asthma complication type: uncomplicated Qualified Code(s): J45.909 - Unspecified asthma, uncomplicated Is this a current diagnosis for this admission?: Yes - Time Time Spent with patient: 25-34 minutes - Plan Summary Plan Summary: We are going to continue dialysis per nephrology service recommendation. We will send a urine for culture. Monitor basic metabolic panel. Increase Norvasc for blood pressure control. Continue other medication and supportive care.
--- NOTE | 2016-04-10 16:09 | PDOC PROGRESS REPORT ---
Subjective Progress Note for:: 04/10/16 Subjective:: Patient is doing much better today. Peritoneal dialysis is doing well. We are able to get ultrafiltration at least about 4 L so far since the peritoneal dialysis was started as an inpatient. Patient is still coughing but not as much as yesterday. She confirms that she feels much better today. There is no evidence of any peritonitis. Physical Exam Vital Signs: Temp Pulse Resp BP Pulse Ox 97.6 F 76 16 139/70 H 97 04/10/16 12:20 04/10/16 12:20 04/10/16 12:20 04/10/16 12:20 04/10/16 12:20 Intake & Output 04/09/16 04/10/16 04/11/16 06:59 06:59 06:59 Intake Total 8000 2830 Output Total 8750 3700 Balance -750 -870 Weight 155.8 kg 155.2 kg Exam: General appearance: PRESENT: no acute distress, cooperative, well-developed, well-nourished Head exam: PRESENT: atraumatic, normocephalic Eye exam: PRESENT: conjunctiva pale, improved periorbital edema PERRLA. ABSENT : scleral icterus Neck exam: ABSENT: JVD Respiratory exam: PRESENT: Diminished breath sounds. ABSENT: crackles, rales, rhonchi, unlabored, wheezes Cardiovascular exam: PRESENT: Regular rate rhythm -+S1, +S2. ABSENT: diastolic murmur, systolic murmur GI/Abdominal exam: PRESENT: normal bowel sounds, soft. ABSENT: guarding, mass, tenderness Extremities exam: Decrease grade 1 lower extremity bilateral pitting edema Neurological exam: PRESENT: alert, awake, oriented to person, place and time. Skin exam: PRESENT: dry, warm, Results Laboratory Results: 04/10/16 04:25 04/10/16 04:25 04/09/16 04/10/16 04/10/16 23:00 01:50 04:25 WBC 8.8 RBC 3.95 Hgb 10.2 L Hct 31.9 L MCV 81 MCH 25.9 L MCHC 32.0 RDW 19.4 H Plt Count 217 Sodium Potassium Chloride Carbon Dioxide Anion Gap BUN Creatinine Est GFR ( Amer) Est GFR (Non-Af Amer) Glucose Calcium Phosphorus Magnesium Urine Color YELLOW Urine Appearance CLOUDY Urine pH 7.0 Ur Specific [place] 1.010 Urine Protein >=500 H Urine Glucose (UA) 150 H Urine Ketones NEGATIVE Urine Blood NEGATIVE Urine Nitrite NEGATIVE Ur Leukocyte Esterase TRACE H Urine WBC (Auto) 27 Urine RBC (Auto) 3 Fluid Type PERITONEAL Fluid Source ABDOMEN Fluid Color COLORLESS Fluid Appearance CLEAR Fluid Viscosity LIQUID Fluid WBC 4 Fluid RBC 0 04/10/16 04:25 WBC RBC Hgb Hct MCV MCH MCHC RDW Plt Count Sodium 138.8 Potassium 4.5 Chloride 97 L Carbon Dioxide 23 Anion Gap 19 BUN 119 H Creatinine 16.16 H Est GFR ( Amer) 3 L Est GFR (Non-Af Amer) 2 L Glucose 196 H Calcium 9.9 Phosphorus 8.7 H Magnesium 2.1 Urine Color Urine Appearance Urine pH Ur Specific [place] Urine Protein Urine Glucose (UA) Urine Ketones Urine Blood Urine Nitrite Ur Leukocyte Esterase Urine WBC (Auto) Urine RBC (Auto) Fluid Type Fluid Source Fluid Color Fluid Appearance Fluid Viscosity Fluid WBC Fluid RBC 04/09/16 04/09/16 04/10/16 22:00 22:00 04:25 Creatine Kinase 146 H 148 H CK-MB (CK-2) 3.49 Troponin I 0.056 04/10/16 04/10/16 04:25 11:25 Creatine Kinase CK-MB (CK-2) 3.58 3.29 Troponin I 0.071 0.064 Impressions: Chest X-Ray 04/09/16 14:49 IMPRESSION: No significant interval change. No acute findings. Other findings as noted above Assessment & Plan - Diagnosis (1) ESRD (end stage renal disease) on dialysis Is this a current diagnosis for this admission?: YesPlan: Continue the same peritoneal dialysis regimen as ordered. Once the patient is in her dry weight we will modify her regimen. (2) Acute congestive heart failure Qualifiers: Congestive heart failure type: diastolic Qualified Code(s): I50.31 - Acute diastolic (congestive) heart failure Is this a current diagnosis for this admission?: YesPlan: Improving with ultrafiltration through dialysis. (3) Hypertensive urgency Is this a current diagnosis for this admission?: YesPlan: Much improved with improving fluid overload. (4) Anemia in chronic kidney disease (CKD) Is this a current diagnosis for this admission?: YesPlan: Stable and does not require any Procrit at this point. (5) Chest pain Is this a current diagnosis for this admission?: YesPlan: Improving. - Time Time with patient: 15-25 minutes
[2016-04-10] MEDS ORDERED: IPRATROPIUM/ALBUTEROL 0.5-2.5 MG/3 ML AMPUL NEB PRN (17:17)
[2016-04-10] MEDS: AMLODIPINE BESYLATE 5 MG TABLET PO SCH (21:33)
[2016-04-10] MEDS: CLONIDINE HCL 0.2 MG TABLET PO SCH (21:33)
[2016-04-10] MEDS: INSULIN GLARGINE,HUM.REC.ANLOG 300 UNIT/3 ML INSULN.PEN SUBCUT SCH (21:34)
[2016-04-11] MEDS: NITROGLYCERIN 2% OINTMENT 1 GM PACKET TP SCH ×4 (04:08→20:51)
[2016-04-11] MEDS: HYDRALAZINE HCL 50 MG TABLET PO SCH ×3 (06:10→22:41)
[2016-04-11] MEDS: FUROSEMIDE INJ/PF 100 MG/10 ML SDV IV SCH ×2 (06:21→18:35)
[2016-04-11 07:22] LABS: ABSOLUTE EOSINOPHILS # (AUTO) 0.3 10^3/uL (0.0-0.6); ABSOLUTE LYMPHOCYTES (AUTO) 1.5 10^3/uL (0.5-4.7); ABSOLUTE MONOCYTES (AUTO) 1.1 10^3/uL (0.1-1.4); ABSOLUTE NEUT (AUTO) 4.1 10^3/uL (1.7-8.2); BASOPHILS % (AUTO) 0.6 % (0-2); EOSINOPHILS % (AUTO) 4.2 % (0-6); HEMATOCRIT 31.5 % (36.0-47.0); HEMOGLOBIN 10.1 g/dL (12.0-15.5); HGB HCT DIFFERENCE -1.2; LYMPHOCYTES % (AUTO) 21.6 % (13-45); MEAN CORPUSCULAR HEMOGLOBIN 25.8 pg (27.0-33.4); MEAN CORPUSCULAR VOLUME 80 fl (80-97); MONOCYTES % (AUTO) 15.1 % (3-13); RED BLOOD COUNT 3.92 10^6/uL (3.72-5.28); RED CELL DISTRIBUTION WIDTH 19.2 % (11.5-14.0); SEGMENTED NEUTROPHILS % (AUTO) 58.5 % (42-78)
[2016-04-11 07:33] LABS: ANION GAP 19 (5-19); BLOOD UREA NITROGEN 96 mg/dL (7-20); CALCIUM 9.3 mg/dL (8.4-10.2); CARBON DIOXIDE 25 mmol/L (22-30); CHLORIDE 96 mmol/L (98-107); GLUCOSE 124 mg/dL (75-110); PHOSPHORUS 8.1 mg/dL (2.5-4.5); POTASSIUM 4.4 mmol/L (3.6-5.0); SODIUM 139.9 mmol/L (137-145)
[2016-04-11 07:39] LABS: CREATININE RESULT 16.07 mg/dL (0.52-1.25)
[2016-04-11] MEDS: CALCIUM ACETATE 667 MG CAPSULE PO SCH ×2 (08:49→12:05)
[2016-04-11] MEDS: SEVELAMER HCL 400 MG TABLET PO SCH ×3 (08:52→17:18)
[2016-04-11] MEDS: AMLODIPINE BESYLATE 5 MG TABLET PO SCH ×2 (10:01→22:43)
[2016-04-11] MEDS: ASPIRIN 81 MG TABLET, ENT COATED PO SCH (10:01)
[2016-04-11] MEDS: ISOSORBIDE MONONITRATE 30 MG TAB.ER.24H PO SCH (10:01)
[2016-04-11] MEDS: CETIRIZINE 10 MG TABLET PO SCH (10:01)
[2016-04-11] MEDS: CARVEDILOL 12.5 MG TABLET PO SCH ×2 (10:01→22:42)
[2016-04-11] MEDS: FAMOTIDINE 20 MG TABLET PO SCH ×2 (10:01→22:44)
[2016-04-11] MEDS: LANSOPRAZOLE 15 MG TAB.RAP.DR PO SCH (10:02)
[2016-04-11] MEDS: GENTAMICIN SULFATE 0.1% CREAM 15 GM TP SCH (10:04)
[2016-04-11] MEDS: FLUTICASONE/SALMETEROL DISKUS 250-50 MCG/DOSE IH SCH ×2 (10:04→23:04)
--- NOTE | 2016-04-11 11:15 | PDOC PROGRESS REPORT ---
Subjective Progress Note for:: 04/11/16 Subjective:: Patient is feeling much better today. Weight down to 150.8 from 159. Dry weight is 146 kg. Patient denies any chills or fever. No nausea or vomiting. Mild abdominal discomfort. No dysuria urgency or frequency. Still brings out some urine. Physical Exam Vital Signs: Temp Pulse Resp BP Pulse Ox 97.9 F 79 18 142/80 H 99 04/11/16 07:23 04/11/16 09:00 04/11/16 07:23 04/11/16 09:00 04/11/16 07:23 Intake & Output 04/10/16 04/11/16 04/12/16 06:59 06:59 06:59 Intake Total 8000 50051 2500 Output Total 8750 99508 3200 Balance -750 -2471 -700 Weight 155.8 kg 151.4 kg 150.8 kg General appearance: PRESENT: no acute distress, cooperative, morbidly obese Head exam: PRESENT: normocephalic Eye exam: PRESENT: EOMI Mouth exam: PRESENT: moist, neck supple Neck exam: ABSENT: JVD Respiratory exam: PRESENT: clear to auscultation shira. ABSENT: rhonchi, wheezes Cardiovascular exam: PRESENT: RRR GI/Abdominal exam: PRESENT: distended - Obese, normal bowel sounds Extremities exam: PRESENT: other - Trace lower extremity edema Neurological exam: PRESENT: alert, awake, oriented to time Skin exam: PRESENT: dry. ABSENT: cyanosis Results Laboratory Results: 04/11/16 06:16 04/11/16 06:16 04/11/16 04/11/16 06:16 06:16 WBC 7.0 RBC 3.92 Hgb 10.1 L Hct 31.5 L MCV 80 MCH 25.8 L MCHC 32.0 RDW 19.2 H Plt Count 211 Seg Neutrophils % 58.5 Lymphocytes % 21.6 Monocytes % 15.1 H Eosinophils % 4.2 Basophils % 0.6 Absolute Neutrophils 4.1 Absolute Lymphocytes 1.5 Absolute Monocytes 1.1 Absolute Eosinophils 0.3 Absolute Basophils 0.0 Sodium 139.9 Potassium 4.4 Chloride 96 L Carbon Dioxide 25 Anion Gap 19 BUN 96 H Creatinine 16.07 H Est GFR ( Amer) 3 L Est GFR (Non-Af Amer) 2 L Glucose 124 H Calcium 9.3 Phosphorus 8.1 H 04/09/16 04/09/16 04/10/16 22:00 22:00 04:25 Creatine Kinase 146 H 148 H CK-MB (CK-2) 3.49 Troponin I 0.056 04/10/16 04/10/16 04:25 11:25 Creatine Kinase CK-MB (CK-2) 3.58 3.29 Troponin I 0.071 0.064 Impressions: Chest X-Ray 04/09/16 14:49 IMPRESSION: No significant interval change. No acute findings. Other findings as noted above Assessment & Plan - Diagnosis (1) Acute congestive heart failure Qualifiers: Congestive heart failure type: diastolic Qualified Code(s): I50.31 - Acute diastolic (congestive) heart failure Is this a current diagnosis for this admission?: Yes (2) Anemia in chronic kidney disease (CKD) Is this a current diagnosis for this admission?: Yes (3) ESRD (end stage renal disease) on dialysis Is this a current diagnosis for this admission?: Yes (4) Abnormal urinalysis Is this a current diagnosis for this admission?: Yes (5) Hypertension Qualifiers: Hypertension type: essential hypertension Qualified Code(s): I10 - Essential (primary) hypertension Is this a current diagnosis for this admission?: Yes (6) Diabetes mellitus type 1 Qualifiers: Diabetes mellitus complication status: with kidney complications Diabetes mellitus complication detail: with chronic kidney disease Chronic kidney disease stage: on chronic dialysis Qualified Code(s): E10.22 - Type 1 diabetes mellitus with diabetic chronic kidney disease; N18.1 - Chronic kidney disease, stage 1 Is this a current diagnosis for this admission?: Yes (7) GERD (gastroesophageal reflux disease) Qualifiers: Esophagitis presence: esophagitis presence not specified Qualified Code(s): K21.9 - Gastro-esophageal reflux disease without esophagitis Is this a current diagnosis for this admission?: Yes (8) Asthma Qualifiers: Asthma severity: unspecified severity Asthma complication type: uncomplicated Qualified Code(s): J45.909 - Unspecified asthma, uncomplicated Is this a current diagnosis for this admission?: Yes - Time Time Spent with patient: 15-24 minutes - Plan Summary Plan Summary: Plan continue hemodialysis per nephrology service. Once the patient down to her dry weight, might be able to be discharged home. Urine culture growing gram -negative rods. We will give a dose of Levaquin and follow cultures. Blood pressure has significantly improved as well. Continue supportive care.
[2016-04-11] MEDS ORDERED: LEVOFLOXACIN 750 MG TABLET PO ONE (13:00)
[2016-04-11] MEDS ORDERED: EPOETIN ALFA INJ 20000 UNIT/1 ML VIAL (RENAL) SUBCUT ONE (16:02)
--- NOTE | 2016-04-11 16:10 | PDOC PROGRESS REPORT ---
Subjective Progress Note for:: 04/11/16 Subjective:: Patient said she does not feel so well today like yesterday. Her blood pressure has been decreasing for the last 24 hours. She also complained of some muscle cramping. So far we have taken off for approximately 7 kg of fluid off her through ultrafiltration from peritoneal dialysis. She is very close to her dry weight of 146 kg. Other than that she doesn't really have any other complaints. She was given a dose of Levaquin 750 mg for possible urinary tract infection. Physical Exam Vital Signs: Temp Pulse Resp BP Pulse Ox 98.1 F 74 18 117/73 99 04/11/16 12:31 04/11/16 14:00 04/11/16 12:31 04/11/16 12:45 04/11/16 12:31 Intake & Output 04/10/16 04/11/16 04/12/16 06:59 06:59 06:59 Intake Total 8000 49666 5000 Output Total 8750 45411 6600 Balance -750 -0713 -1600 Weight 155.8 kg 151.4 kg 151.3 kg Exam: General appearance: PRESENT: no acute distress, cooperative, well-developed, well-nourished Head exam: PRESENT: atraumatic, normocephalic Eye exam: PRESENT: conjunctiva pale, PERRLA. ABSENT: scleral icterus Neck exam: ABSENT: JVD Respiratory exam: PRESENT: Normal breath sounds. Improved air exchange ABSENT : crackles, rales, rhonchi, unlabored, wheezes Cardiovascular exam: PRESENT: Regular rate rhythm -+S1, +S2. ABSENT: diastolic murmur, systolic murmur GI/Abdominal exam: PRESENT: normal bowel sounds, soft. ABSENT: guarding, mass, tenderness Extremities exam: Improved bilateral minimal trace pitting edema on the lower extremities Neurological exam: PRESENT: alert, awake, oriented to person, place and time. Skin exam: PRESENT: dry, warm, Results Laboratory Results: 04/11/16 06:16 04/11/16 06:16 04/11/16 04/11/16 06:16 06:16 WBC 7.0 RBC 3.92 Hgb 10.1 L Hct 31.5 L MCV 80 MCH 25.8 L MCHC 32.0 RDW 19.2 H Plt Count 211 Seg Neutrophils % 58.5 Lymphocytes % 21.6 Monocytes % 15.1 H Eosinophils % 4.2 Basophils % 0.6 Absolute Neutrophils 4.1 Absolute Lymphocytes 1.5 Absolute Monocytes 1.1 Absolute Eosinophils 0.3 Absolute Basophils 0.0 Sodium 139.9 Potassium 4.4 Chloride 96 L Carbon Dioxide 25 Anion Gap 19 BUN 96 H Creatinine 16.07 H Est GFR ( Amer) 3 L Est GFR (Non-Af Amer) 2 L Glucose 124 H Calcium 9.3 Phosphorus 8.1 H 04/09/16 04/09/16 04/10/16 22:00 22:00 04:25 Creatine Kinase 146 H 148 H CK-MB (CK-2) 3.49 Troponin I 0.056 04/10/16 04/10/16 04:25 11:25 Creatine Kinase CK-MB (CK-2) 3.58 3.29 Troponin I 0.071 0.064 Impressions: Chest X-Ray 04/09/16 14:49 IMPRESSION: No significant interval change. No acute findings. Other findings as noted above Assessment & Plan - Diagnosis (1) ESRD (end stage renal disease) on dialysis Is this a current diagnosis for this admission?: YesPlan: I will change her be CAPD regimen to every 4 hours using the same fill volume of 2.5 L. We will use alternating 2.5% and 4.25% dialysis solution. However if the systolic blood pressure is less than 120 they are to use 2.5%. We will continue ultrafiltration after her dry weight of 146 kg. Once we achieved a dry weight we can go back to her regular regimen. She may be able to be discharged home if we reach her dry weight. (2) Acute congestive heart failure Qualifiers: Congestive heart failure type: diastolic Qualified Code(s): I50.31 - Acute diastolic (congestive) heart failure Is this a current diagnosis for this admission?: YesPlan: Resolving with ultrafiltration to peritoneal dialysis. (3) Hypertensive urgency Is this a current diagnosis for this admission?: YesPlan: Much improved now within acceptable limits. Continue current management and medications. (4) Anemia in chronic kidney disease (CKD) Is this a current diagnosis for this admission?: YesPlan: We will give Procrit 10,000 units subcutaneously 1 dose since he isn't due for her maintenance Procrit. (5) Chest pain Is this a current diagnosis for this admission?: YesPlan: Resolved. (6) Urinary tract infection Qualifiers: Indwelling urinary catheter type: unspecified Is this a current diagnosis for this admission?: YesPlan: Very minimal due to gram-negative rods. One dose of Levaquin 750 mg orally given. - Notes Notes: Discussed change in CAPD regimen with the patient's nurse. - Time Time with patient: 15-25 minutes
[2016-04-11] MEDS: INSULIN REG, HUMAN 100 UNIT/ML 3 ML VIAL (PYX) SUBCUT PRN (17:03)
[2016-04-11] MEDS ORDERED: CALCIUM ACETATE 667 MG CAPSULE PO ONE (17:30)
[2016-04-11] MEDS ORDERED: EPOETIN ALFA 10,000 UNIT in SYRINGE, DISPOSABLE, 1 EACH IV ONE (18:00)
[2016-04-11] MEDS: CLONIDINE HCL 0.2 MG TABLET PO SCH (22:42)
[2016-04-11] MEDS: INSULIN GLARGINE,HUM.REC.ANLOG 300 UNIT/3 ML INSULN.PEN SUBCUT SCH (22:45)
[2016-04-12] MEDS: NITROGLYCERIN 2% OINTMENT 1 GM PACKET TP SCH ×4 (03:33→22:17)
[2016-04-12] MEDS: HYDRALAZINE HCL 50 MG TABLET PO SCH ×3 (06:07→22:34)
[2016-04-12] MEDS: FUROSEMIDE INJ/PF 100 MG/10 ML SDV IV SCH ×2 (06:07→17:29)
[2016-04-12] MEDS: CALCIUM ACETATE 667 MG CAPSULE PO SCH ×3 (08:08→17:33)
[2016-04-12] MEDS: SEVELAMER HCL 400 MG TABLET PO SCH ×3 (08:11→17:30)
[2016-04-12] MEDS: FLUTICASONE/SALMETEROL DISKUS 250-50 MCG/DOSE IH SCH ×2 (10:47→22:31)
[2016-04-12] MEDS: ASPIRIN 81 MG TABLET, ENT COATED PO SCH (10:48)
[2016-04-12] MEDS: CARVEDILOL 12.5 MG TABLET PO SCH ×2 (10:48→22:30)
[2016-04-12] MEDS: ISOSORBIDE MONONITRATE 30 MG TAB.ER.24H PO SCH (10:49)
[2016-04-12] MEDS: AMLODIPINE BESYLATE 5 MG TABLET PO SCH ×2 (10:49→22:33)
[2016-04-12] MEDS: CETIRIZINE 10 MG TABLET PO SCH (10:49)
[2016-04-12] MEDS: LANSOPRAZOLE 15 MG TAB.RAP.DR PO SCH (10:49)
[2016-04-12] MEDS: FAMOTIDINE 20 MG TABLET PO SCH ×2 (10:49→22:33)
[2016-04-12] MEDS: INSULIN REG, HUMAN 100 UNIT/ML 3 ML VIAL (PYX) SUBCUT PRN ×2 (11:31→17:23)
[2016-04-12] MEDS: GENTAMICIN SULFATE 0.1% CREAM 15 GM TP SCH (11:37)
[2016-04-12] MEDS: ACETAMINOPHEN 325 MG TABLET PO PRN ×2 (12:23→22:35)
--- NOTE | 2016-04-12 15:01 | PDOC PROGRESS REPORT ---
Subjective Progress Note for:: 04/12/16 Subjective:: Patient is feeling much better today. Weight down to 149 from 159. Dry weight is 146 kg. Patient denies any chills or fever. No nausea or vomiting. Mild abdominal discomfort improved. No dysuria urgency or frequency. Still brings out some urine. Urine culture providencia sensitive to Levaquin. Physical Exam Vital Signs: Temp Pulse Resp BP Pulse Ox 97.5 F 73 18 118/73 98 04/12/16 12:26 04/12/16 12:50 04/12/16 12:26 04/12/16 12:50 04/12/16 12:26 Intake & Output 04/11/16 04/12/16 04/13/16 06:59 06:59 06:59 Intake Total 14647 94102 5668 Output Total 54595 12299 6600 Balance -5261 -3229 -932 Weight 151.4 kg 149.1 kg 149.1 kg General appearance: PRESENT: no acute distress, cooperative, morbidly obese Head exam: PRESENT: normocephalic Eye exam: PRESENT: EOMI Mouth exam: PRESENT: moist, neck supple Neck exam: ABSENT: JVD Respiratory exam: PRESENT: clear to auscultation shira Cardiovascular exam: PRESENT: RRR GI/Abdominal exam: PRESENT: normal bowel sounds, soft. ABSENT: tenderness Extremities exam: PRESENT: +1 edema Neurological exam: PRESENT: alert, awake, oriented to situation Skin exam: PRESENT: dry, warm. ABSENT: cyanosis Results Laboratory Results: 04/11/16 06:16 04/11/16 06:16 04/10/16 19:45 Clean Catch Midstream Urine Culture - Final Providencia Stuartii 04/09/16 04/09/16 04/10/16 22:00 22:00 04:25 Creatine Kinase 146 H 148 H CK-MB (CK-2) 3.49 Troponin I 0.056 04/10/16 04/10/16 04:25 11:25 Creatine Kinase CK-MB (CK-2) 3.58 3.29 Troponin I 0.071 0.064 Impressions: Chest X-Ray 04/09/16 14:49 IMPRESSION: No significant interval change. No acute findings. Other findings as noted above Assessment & Plan - Diagnosis (1) Acute congestive heart failure Qualifiers: Congestive heart failure type: diastolic Qualified Code(s): I50.31 - Acute diastolic (congestive) heart failure Is this a current diagnosis for this admission?: Yes (2) Anemia in chronic kidney disease (CKD) Is this a current diagnosis for this admission?: Yes (3) ESRD (end stage renal disease) on dialysis Is this a current diagnosis for this admission?: Yes (4) Abnormal urinalysis Is this a current diagnosis for this admission?: Yes (5) Hypertension Qualifiers: Hypertension type: essential hypertension Qualified Code(s): I10 - Essential (primary) hypertension Is this a current diagnosis for this admission?: Yes (6) Diabetes mellitus type 1 Qualifiers: Diabetes mellitus complication status: with kidney complications Diabetes mellitus complication detail: with chronic kidney disease Chronic kidney disease stage: on chronic dialysis Qualified Code(s): E10.22 - Type 1 diabetes mellitus with diabetic chronic kidney disease; N18.1 - Chronic kidney disease, stage 1 Is this a current diagnosis for this admission?: Yes (7) GERD (gastroesophageal reflux disease) Qualifiers: Esophagitis presence: esophagitis presence not specified Qualified Code(s): K21.9 - Gastro-esophageal reflux disease without esophagitis Is this a current diagnosis for this admission?: Yes (8) Asthma Qualifiers: Asthma severity: unspecified severity Asthma complication type: uncomplicated Qualified Code(s): J45.909 - Unspecified asthma, uncomplicated Is this a current diagnosis for this admission?: Yes - Time Time Spent with patient: 15-24 minutes - Plan Summary Plan Summary: We will give Levaquin one-time dose in the morning. Continue dialysis. Once we achieve dry weight probably can be discharged from there.
--- NOTE | 2016-04-12 19:30 | PDOC PROGRESS REPORT ---
Subjective Progress Note for:: 04/12/16 Subjective:: Patient is doing much better. She is almost on her dry weight, today she weighs 148 kg. Last night her blood pressure went down below 110's so we needed to use 1.5% dialysis solution. I modified the PD orders today. Other than that she doesn't have any much complaint except she is unable to sleep at night. Physical Exam Vital Signs: Temp Pulse Resp BP Pulse Ox 97.9 F 81 18 154/76 H 100 04/12/16 17:12 04/12/16 19:00 04/12/16 17:12 04/12/16 17:50 04/12/16 17:12 Intake & Output 04/11/16 04/12/16 04/13/16 06:59 06:59 06:59 Intake Total 55147 21809 8282 Output Total 31123 54883 9500 Balance -5261 -3229 -1218 Weight 151.4 kg 149.1 kg 148.8 kg Exam: General appearance: PRESENT: no acute distress, cooperative, well-developed, well-nourished Head exam: PRESENT: atraumatic, normocephalic Eye exam: PRESENT: conjunctiva slightly pale, PERRLA. ABSENT: scleral icterus Neck exam: ABSENT: JVD Respiratory exam: PRESENT: Normal breath sounds. Normal air exchange ABSENT: crackles, rales, rhonchi, unlabored, wheezes Cardiovascular exam: PRESENT: Regular rate rhythm -+S1, +S2. ABSENT: diastolic murmur, systolic murmur GI/Abdominal exam: PRESENT: normal bowel sounds, soft. ABSENT: guarding, mass, tenderness Extremities exam: ABSENT: No edema Neurological exam: PRESENT: alert, awake, oriented to person, place and time. Skin exam: PRESENT: dry, warm, Results Laboratory Results: 04/11/16 06:16 04/11/16 06:16 04/10/16 19:45 Clean Catch Midstream Urine Culture - Final Providencia Stuartii 04/09/16 04/09/16 04/10/16 22:00 22:00 04:25 Creatine Kinase 146 H 148 H CK-MB (CK-2) 3.49 Troponin I 0.056 04/10/16 04/10/16 04:25 11:25 Creatine Kinase CK-MB (CK-2) 3.58 3.29 Troponin I 0.071 0.064 Impressions: Chest X-Ray 04/09/16 14:49 IMPRESSION: No significant interval change. No acute findings. Other findings as noted above Assessment & Plan - Diagnosis (1) ESRD (end stage renal disease) on dialysis Is this a current diagnosis for this admission?: YesPlan: We will modify her CAPD regimen as follow: He still use 2.5 L fill volume, continue exchanges every 4 hours, we will use 1.5% dialysis solution if systolic blood pressures less than 120, use 2.5% diagonal solution for systolic blood pressure of 120- 140, and use 4.25% solution for systolic blood pressure greater than 140. Explained and discussed this with her nurse robbi. (2) Acute congestive heart failure Qualifiers: Congestive heart failure type: diastolic Qualified Code(s): I50.31 - Acute diastolic (congestive) heart failure Is this a current diagnosis for this admission?: YesPlan: Resoled. (3) Hypertensive urgency Is this a current diagnosis for this admission?: YesPlan: Improved and controlled. (4) Anemia in chronic kidney disease (CKD) Is this a current diagnosis for this admission?: YesPlan: Procrit given last night. (5) Chest pain Is this a current diagnosis for this admission?: YesPlan: Resolved. (6) Urinary tract infection Qualifiers: Indwelling urinary catheter type: unspecified Is this a current diagnosis for this admission?: YesPlan: Very minimal due to gram-negative rods secondary to Providenci Stuartii. One dose of Levaquin 750 mg orally given. - Notes Notes: From nephrology standpoint I think the patient can be discharged home safely tomorrow. I will follow the patient at [place] [facility] on her regular follow-up visit in one and half weeks. Once discharged she is to continue her regular dialysis prescription using the cycler machine at home. - Time Time with patient: 15-25 minutes
[2016-04-12] MEDS: CLONIDINE HCL 0.2 MG TABLET PO SCH (22:30)
[2016-04-12] MEDS: INSULIN GLARGINE,HUM.REC.ANLOG 300 UNIT/3 ML INSULN.PEN SUBCUT SCH (22:31)
[2016-04-13] MEDS: NITROGLYCERIN 2% OINTMENT 1 GM PACKET TP SCH ×3 (02:55→14:19)
[2016-04-13] MEDS: FUROSEMIDE INJ/PF 100 MG/10 ML SDV IV SCH (05:25)
[2016-04-13] MEDS: HYDRALAZINE HCL 50 MG TABLET PO SCH ×2 (05:26→13:39)
[2016-04-13] MEDS: CALCIUM ACETATE 667 MG CAPSULE PO SCH ×2 (08:55→12:32)
[2016-04-13] MEDS: SEVELAMER HCL 400 MG TABLET PO SCH ×2 (08:56→12:32)
[2016-04-13] MEDS: GENTAMICIN SULFATE 0.1% CREAM 15 GM TP SCH (10:37)
[2016-04-13] MEDS: CETIRIZINE 10 MG TABLET PO SCH (10:42)
[2016-04-13] MEDS: AMLODIPINE BESYLATE 5 MG TABLET PO SCH (10:42)
[2016-04-13] MEDS: ISOSORBIDE MONONITRATE 30 MG TAB.ER.24H PO SCH (10:42)
[2016-04-13] MEDS: FAMOTIDINE 20 MG TABLET PO SCH (10:43)
[2016-04-13] MEDS: FLUTICASONE/SALMETEROL DISKUS 250-50 MCG/DOSE IH SCH (10:43)
[2016-04-13] MEDS: CARVEDILOL 12.5 MG TABLET PO SCH (10:43)
[2016-04-13] MEDS: LANSOPRAZOLE 15 MG TAB.RAP.DR PO SCH (10:43)
[2016-04-13] MEDS: ASPIRIN 81 MG TABLET, ENT COATED PO SCH (10:43)
[2016-04-13] MEDS: INSULIN REG, HUMAN 100 UNIT/ML 3 ML VIAL (PYX) SUBCUT PRN (12:32)
[2016-04-13] MEDS ORDERED: LEVOFLOXACIN 750 MG TABLET PO SCH (15:00)
[2016-04-13 16:34] VITALS: BP 103/68
--- NOTE | 2016-04-13 16:34 | PDOC DISCHARGE SUMMARY ---
General - Admit/Disc Date/PCP Admission Date/Primary Care Provider: 04/09/16 17:49 CALVIN MELGAR, Discharge Date: 04/13/16 - Discharge Diagnosis (1) Acute congestive heart failure Is this a current diagnosis for this admission?: Yes (2) Anemia in chronic kidney disease (CKD) Is this a current diagnosis for this admission?: Yes (3) ESRD (end stage renal disease) on dialysis Is this a current diagnosis for this admission?: Yes (4) Hypertension Is this a current diagnosis for this admission?: Yes (5) Diabetes mellitus type 1 Is this a current diagnosis for this admission?: Yes (6) GERD (gastroesophageal reflux disease) Is this a current diagnosis for this admission?: Yes (7) Asthma Is this a current diagnosis for this admission?: Yes (8) Urinary tract infection Is this a current diagnosis for this admission?: Yes - Additional Information Resuscitation Status: Full Code Discharge Diet: Cardiac - low-fat low-salt, Diabetic - no concentrated sweets, Other (Comments) - renal Discharge Activity: Activity As Tolerated, Balance Activity w/Rest, Weigh Daily Home Medications: Aspirin [Ecotrin 81 mg EC Tablet] 81 mg PO DAILY 12/04/11 Carvedilol [Coreg] 1 tab PO BID 10/03/13 Hydralazine HCl [Apresoline 50 mg Tablet] 100 mg PO Q8 #0 tablet 10/07/13 Furosemide [Lasix 40 mg Tablet] 40 mg PO BID 01/21/14 Insulin Glargine,Hum.rec.anlog [Lantus Insulin 100 Unit/mL] 15 unit SUBCUT QHS 01/22/14 Clonidine HCl [Catapres 0.2 mg Tablet] 0.2 mg PO QHS 11/15/14 Omeprazole [Prilosec] 20 mg PO DAILY 11/15/14 Amlodipine Besylate 5 mg PO DAILY 04/12/15 Fluticasone/Salmeterol [Advair 250-50 Diskus 14 Dose/Diskus] 1 inh IH Q12 #1 inhaler 08/08/15 Calcitriol 2 cap PO DAILY 04/10/16 Calcium Acetate [Phoslo 667 mg Capsule] 2 cap PO AC 04/10/16 Cinacalcet HCl [Sensipar 60 mg Tablet] 60 mg PO DAILY 04/10/16 Ergocalciferol (Vitamin D2) [Vitamin D2] 50,000 unit PO MO 04/10/16 Gentamicin Sulfate [Garamycin 0.1% Cream 15 gm] 1 applic TP DAILY 04/10/16 Lactulose 30 ml PO Q6HP PRN 04/10/16 Ondansetron HCl [Zofran 4 mg Tablet] 1 - 2 tab PO Q4HP PRN 04/10/16 Polyethylene Glycol 3350 [Miralax Powder 17 gm/Packet] 17 gm PO DAILYP PRN 04/10 Sevelamer Carbonate [Renvela] 2 tab PO ACP PRN 04/10/16 Sevelamer Carbonate [Renvela] 4 tab PO AC 04/10/16 Levofloxacin [Levaquin 500 mg Tablet] 500 mg PO Q2D@1000 #1 tablet 04/13/16 Additional Information: Levaquin to be taken on 04/14/2016 one-time dose History of Present Illness Patient complains of: Shortness of breath History of Present Illness: JASPREET STAFFORD is a 50 year old female, history of hypertension, morbid obesity, end-stage renal disease on peritoneal dialysis, admitted because of weight gain , shortness of breath and a brief episode of sharp chest pain that only last for a few seconds. Chest x-ray did not reveal any acute findings. The patient was diagnosed with fluid overload and was referred for admission. For details please refer to history and physical examination performed by the admitting physician. Hospital Course Hospital Course: The patient was admitted to [facility]. The patient was continued on her medications including diuretics. Blood pressure was noted to be elevated as well as her weight compared to her dry weight. This is likely secondary to fluid overload. Nephrology was consulted and peritoneal dialysis dialysis was adjusted to be able to remove excess fluid and achieve her dry weight. As this was accomplished, her blood pressure also improved. In terms of her chest pain, it is pretty atypical, and serial cardiac enzymes were negative. She was advised to have an outpatient stress test as she wished but she refuses at this time. Course was noted for abnormal urinalysis which a urine culture was done growing providencia. Patient was started on Levaquin based on culture and sensitivity. The patient improved. The rest of the hospital stays unremarkable. Patient was eventually was cleared by nephrology to be discharged . Physical Exam Vital Signs: Temp Pulse Resp BP Pulse Ox 98.1 F 77 16 126/77 H 98 04/13/16 15:00 04/13/16 15:00 04/13/16 15:00 04/13/16 15:00 04/13/16 15:00 Intake & Output 04/12/16 04/13/16 04/14/16 06:59 06:59 06:59 Intake Total 10447 63648 5000 Output Total 73435 69562 5700 Balance -8370 -4750 -700 Weight 149.1 kg 148.5 kg 148.5 kg General appearance: PRESENT: no acute distress, cooperative Head exam: PRESENT: normocephalic Eye exam: PRESENT: EOMI Mouth exam: PRESENT: moist, neck supple Neck exam: ABSENT: JVD Respiratory exam: PRESENT: clear to auscultation shira Cardiovascular exam: PRESENT: RRR. ABSENT: gallop GI/Abdominal exam: PRESENT: normal bowel sounds, soft. ABSENT: tenderness Extremities exam: PRESENT: other - Trace edema Neurological exam: PRESENT: alert, awake, oriented to person, oriented to place , oriented to time, oriented to situation Skin exam: PRESENT: dry, warm. ABSENT: cyanosis Results Laboratory Results: 04/11/16 06:16 04/11/16 06:16 04/09/16 04/09/16 04/10/16 22:00 22:00 04:25 Creatine Kinase 146 H 148 H CK-MB (CK-2) 3.49 Troponin I 0.056 04/10/16 04/10/16 04:25 11:25 Creatine Kinase CK-MB (CK-2) 3.58 3.29 Troponin I 0.071 0.064 Impressions: Chest X-Ray 04/09/16 14:49 IMPRESSION: No significant interval change. No acute findings. Other findings as noted above Qualifiers PATEINT BEING DISCHARGED WITH ANY OF THE FOLLOWING DIAGNOSIS?: No Plan Discharge Plan: Appointment with primary care physician in one week. Appointment with nephrology Dr. Moran in 2 weeks. Time Spent: Less than 30 Minutes
[2016-04-14] MEDS ORDERED: LEVOFLOXACIN 500 MG TABLET PO SCH (10:00)
== END 2016-04-13 16:57 | disposition home or self-care (01) | DRG 291 ==
LOC: ER 14:42 → EH 17:49 → UNDOADMIN 17:54 → 3W 21:44
PROVIDERS: ADMIT Internal Medicine; ATTEND Internal Medicine
PROC: 3E1M39Z Irrigation of Peritoneal Cavity using Dialysate, Percutaneous Approach (ICD-10-PCS; principal; 2016-04-09)
DX: I13.2 Hypertensive heart and chronic kidney disease with heart failure and with stage 5 chronic kidney disease, or end stage renal disease (principal); N18.6 End stage renal disease; I50.31 Acute diastolic (congestive) heart failure; N39.0 Urinary tract infection, site not specified; Z68.41 Body mass index [BMI] 40.0-44.9, adult; E10.22 Type 1 diabetes mellitus with diabetic chronic kidney disease; E10.21 Type 1 diabetes mellitus with diabetic nephropathy; I16.0 Hypertensive urgency; D63.1 Anemia in chronic kidney disease; E78.5 Hyperlipidemia, unspecified; J45.909 Unspecified asthma, uncomplicated; K21.9 Gastro-esophageal reflux disease without esophagitis; E66.01 Morbid (severe) obesity due to excess calories; B96.89 Other specified bacterial agents as the cause of diseases classified elsewhere; Z79.82 Long term (current) use of aspirin; Z79.4 Long term (current) use of insulin; Z79.899 Other long term (current) drug therapy; Z99.2 Dependence on renal dialysis
CPT/HCPCS: 36415; 71010; 80048; 80053; 81001; 82550; 82553; 82962; 83735; 84100; 84484; 85025; 85027; 87070; 87075; 87086; 87088; 87186; 87205; 89050; 90945; 90947; 93005; 93010; 94640; 96374; 99285; J0360; J1815; J1940; J3490; J7620; Q4081; S0119

== ENCOUNTER 2016-08-19 06:34 | Emergency (ER) | payer OTHER, MEDICARE, MEDICAID ==
[2016-08-19 06:42] VITALS: BP 151/90
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
== END 2016-08-19 07:06 | disposition home or self-care (01) ==
LOC: ER 06:34
DX: M79.1 Myalgia (principal); V49.40XA Driver injured in collision with unspecified motor vehicles in traffic accident, initial encounter; I12.0 Hypertensive chronic kidney disease with stage 5 chronic kidney disease or end stage renal disease; E11.22 Type 2 diabetes mellitus with diabetic chronic kidney disease; N18.6 End stage renal disease; Z99.2 Dependence on renal dialysis; Z88.5 Allergy status to narcotic agent; Z88.8 Allergy status to other drugs, medicaments and biological substances
CPT/HCPCS: 99283

== ENCOUNTER 2016-09-29 19:03 | Emergency (ER) | payer MEDICARE, MEDICAID ==
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
--- NOTE | 2016-09-29 20:31 | RADIOLOGY REPORT (SQ) ---
EXAM DESCRIPTION: CHEST PA/LAT COMPLETED DATE/TIME: 09/29/2016 8:19 pm REASON FOR STUDY: SOB COMPARISON: 12/15/2015 EXAM PARAMETERS: NUMBER OF VIEWS: two views TECHNIQUE: Digital Frontal and Lateral radiographic views of the chest acquired. RADIATION DOSE: NA LIMITATIONS: none FINDINGS: LUNGS AND PLEURA: No opacities, masses or pneumothorax. No pleural effusion. MEDIASTINUM AND HILAR STRUCTURES: No masses or contour abnormalities. HEART AND VASCULAR STRUCTURES: Mild cardiomegaly. No evidence for failure. BONES: No acute findings. HARDWARE: None in the chest. OTHER: No other significant finding. IMPRESSION: No evidence of acute cardiopulmonary abnormality. TECHNICAL DOCUMENTATION: JOB ID: [id number] [employer]- All Rights Reserved
[2016-09-29 20:41] LABS: ABSOLUTE BASOPHILS # (AUTO) 0.1 10^3/uL (0.0-0.2); ABSOLUTE EOSINOPHILS # (AUTO) 0.4 10^3/uL (0.0-0.6); ABSOLUTE LYMPHOCYTES (AUTO) 2.1 10^3/uL (0.5-4.7); ABSOLUTE MONOCYTES (AUTO) 0.8 10^3/uL (0.1-1.4); ABSOLUTE NEUT (AUTO) 4.2 10^3/uL (1.7-8.2); BASOPHILS % (AUTO) 1.7 % (0-2); EOSINOPHILS % (AUTO) 5.7 % (0-6); HEMATOCRIT 28.4 % (36.0-47.0); HEMOGLOBIN 9.2 g/dL (12.0-15.5); HGB HCT DIFFERENCE -0.8; LYMPHOCYTES % (AUTO) 27.5 % (13-45); MEAN CORPUSCULAR HGB CONC 32.5 g/dL (32.0-36.0); MEAN CORPUSCULAR VOLUME 83 fl (80-97); MONOCYTES % (AUTO) 10.5 % (3-13); RED BLOOD COUNT 3.41 10^6/uL (3.72-5.28); RED CELL DISTRIBUTION WIDTH 19.4 % (11.5-14.0); SEGMENTED NEUTROPHILS % (AUTO) 54.6 % (42-78); WHITE BLOOD COUNT 7.7 10^3/uL (4.0-10.5)
--- NOTE | 2016-09-29 20:41 | ER Document Report ---
ED Respiratory Problem - General Chief Complaint: Shortness Of Breath Stated Complaint: SHORTNESS OF BREATH Time Seen by Provider: 09/29/16 19:49 Mode of Arrival: Wheelchair Information source: Patient Notes: Patient is a 50-year-old female end-stage renal disease on dialysis, 165 kg who presents to the ER today for shortness of breath 5 days. Patient states "I usually get like this with fluid retention." She denies any swelling to her extremities, cough, fever, chills. She also states that she has some chest pain in the center of her chest that does not radiate anywhere 5 days as well. She is on peritoneal dialysis. She states that she dialyzes every night. She denies history of heart attack. She denies nausea, vomiting, numbness or tingling. TRAVEL OUTSIDE OF THE [place] IN LAST 30 DAYS: No - Related Data Allergies/Adverse Reactions: oxycodone HCl [From Percocet] Allergy (Verified 09/29/16 19:52) Nausea prochlorperazine edisylate [From Compazine] Allergy (Verified 09/29/16 19:52) Hallucinations prochlorperazine maleate [From Compazine] Allergy (Verified 09/29/16 19:52) Hallucinations propoxyphene napsylate [From Darvocet-N 100] Allergy (Verified 09/29/16 19:52) Hallucinations Home Medications: Current Home Medications Fluticasone/Salmeterol [Advair 250-50 Diskus 14 Dose/Diskus] 1 inh IH Q12 PRN [History] Insulin Lispro [Humalog Kwikpen] 5 unit SQ ASDIR PRN 09/29/16 [History] Potassium Chloride [Potassium Chloride] 20 meq PO DAILY 09/29/16 [History] Pregabalin [Lyrica 75 mg Capsule] 75 mg PO BID 09/29/16 [History] Past Medical History - General Information source: Patient - Social History Smoking Status: Unknown if Ever Smoked Family History: Reviewed & Not Pertinent - Past Medical History Cardiac Medical History: Reports: Hx Congestive Heart Failure, Hx Hypercholesterolemia, Hx Hypertension Denies: Hx Heart Attack Pulmonary Medical History: Reports: Hx Pneumonia, Hx Sleep Apnea Denies: Hx Asthma, Hx Bronchitis, Hx COPD Neurological Medical History: Denies: Hx Seizures Endocrine Medical History: Reports: Hx Diabetes Mellitus Type 1, Hx Diabetes Mellitus Type 2 Renal/ Medical History: Reports: Hx End Stage Renal Disease, Hx Kidney Stones , Hx Peritoneal Dialysis GI Medical History: Reports: Hx Gastroesophageal Reflux Disease Musculoskeltal Medical History: Denies Hx Arthritis Psychiatric Medical History: Reports: Hx Depression Past Surgical History: Reports: Hx Abdominal Surgery - peritoneal dialysis fistula, Hx Hysterectomy - partial, Hx Tubal Ligation, Other - Peritoneal dialysis catheter placement - Immunizations Immunizations up to date: No Hx Diphtheria, Pertussis, Tetanus Vaccination: Yes - 2013 Hx Pneumococcal Vaccination: 11/19/11 Review of Systems - Review of Systems Constitutional: No symptoms reported EENT: No symptoms reported Cardiovascular: See HPI Respiratory: See HPI Gastrointestinal: No symptoms reported Genitourinary: No symptoms reported Female Genitourinary: No symptoms reported Musculoskeletal: No symptoms reported Skin: No symptoms reported Hematologic/Lymphatic: No symptoms reported Neurological/Psychological: No symptoms reported Physical Exam - Vital signs Vitals: Temp Pulse Resp BP Pulse Ox 97.7 F 88 18 158/87 H 96 09/29/16 19:09/29/16 19:09 09/29/16 19:09 09/29/16 19:09 09/29/16 19:09 - Notes Notes: PHYSICAL EXAMINATION: GENERAL: Morbidly obese, chronically ill-appearing, but in no acute distress. HEAD: Atraumatic, normocephalic. EYES: Pupils equal round and reactive to light, extraocular movements intact, sclera anicteric, conjunctiva are normal. ENT: Airway patent NECK: Normal range of motion, supple without lymphadenopathy LUNGS: CTAB and equal. No wheezes rales or rhonchi. HEART: Regular rate and rhythm without murmurs ABDOMEN: Soft, no tenderness. No guarding, no rebound EXTREMITIES: Normal range of motion, no pitting edema. No cyanosis. NEUROLOGICAL: Cranial nerves grossly intact. Normal sensory/motor exams. PSYCH: Normal mood, normal affect. SKIN: Warm, Dry, normal turgor, no rashes or lesions noted Course - Re-evaluation Re-evalutation: 09/29/16 21:42 Patient's labs are at her baseline, troponin is actually better than normal for her. Patient has no fluid retention seen on chest x-ray or heard on physical exam, and no pitting edema to the extremities. I have no reason to believe that she has fluid on her lungs as she is also satting at 96% on room air with 18 respirations per minute, unlabored breathing. When I asked for patient's chest pain is she actually points to the base of her throat. Airway is patent. She does not look to be in any distress today. We do not have nephrology wedding transportation driver. I advised her to call her multigrapher tomorrow to discuss possible peritoneal dialysis more than once a day until shortness of breath resolved but I have no reason to keep her in the hospital at this time with normal vital signs and no evidence of emergent pathology. - Vital Signs Vital signs: Temp Pulse Resp BP Pulse Ox 97.7 F 88 18 158/87 H 96 09/29/16 19:09 09/29/16 19:09 09/29/16 19:09 09/29/16 19:09 09/29/16 19:09 - Laboratory Result Diagrams: 09/29/16 20:07 09/29/16 20:07 Laboratory results interpreted by me: 09/29/16 09/29/16 20:07 20:07 RBC 3.41 L Hgb 9.2 L Hct 28.4 L RDW 19.4 H BUN 106 H Creatinine 16.93 H Est GFR ( Amer) 3 L Est GFR (Non-Af Amer) 2 L Glucose 144 H Direct Bilirubin 0.5 H Alkaline Phosphatase 153 H Creatine Kinase 136 H Discharge - Discharge Clinical Impression: SOB (shortness of breath) Chest pain Qualifiers: Chest pain type: unspecified Qualified Code(s): R07.9 - Chest pain, unspecified Condition: Stable Disposition: HOME, SELF-CARE Additional Instructions: Return immediately for any new or worsening symptoms. Follow up with primary care provider, call tomorrow to make followup appointment.
[2016-09-29 20:45] LABS: ALANINE AMINOTRANSFERASE 31 U/L (9-52); ALBUMIN 4.1 g/dL (3.5-5.0); ALKALINE PHOSPHATASE 153 U/L (38-126); ANION GAP 17 (5-19); ASPARTATE AMINO TRANSFERASE 23 U/L (14-36); BILIRUBIN,DIRECT 0.5 mg/dL (0.0-0.4); BILIRUBIN,TOTAL 0.5 mg/dL (0.2-1.3); BLOOD UREA NITROGEN 106 mg/dL (7-20); CALCIUM 10.1 mg/dL (8.4-10.2); CARBON DIOXIDE 24 mmol/L (22-30); CHLORIDE 99 mmol/L (98-107); CREATINE KINASE 136 U/L (30-135); GLUCOSE 144 mg/dL (75-110); POTASSIUM 4.9 mmol/L (3.6-5.0); SODIUM 140.1 mmol/L (137-145); TOTAL PROTEIN 7.5 g/dL (6.3-8.2)
[2016-09-29 20:51] LABS: CREATININE RESULT 16.93 mg/dL (0.52-1.25)
[2016-09-29 20:57] LABS: CREATINE KINASE MB 1.83 ng/mL (<4.55)
[2016-09-29 20:59] LABS: TROPONIN I 0.035 ng/mL
[2016-09-29 21:59] VITALS: BP 140/90
--- NOTE | 2016-09-29 23:56 | EKG REPORT ---
SEVERITY:- ABNORMAL ECG - SINUS RHYTHM PROBABLE LEFT ATRIAL ABNORMALITY BORDERLINE LEFT AXIS DEVIATION NONSPECIFIC T ABNORMALITIES, LATERAL LEADS : Confirmed by: Camille Pollock 29-Sep-2016 23:54:56
== END 2016-09-29 21:56 | disposition home or self-care (01) ==
LOC: ER 19:03
DX: R06.02 Shortness of breath (principal); R07.9 Chest pain, unspecified; E11.22 Type 2 diabetes mellitus with diabetic chronic kidney disease; I13.2 Hypertensive heart and chronic kidney disease with heart failure and with stage 5 chronic kidney disease, or end stage renal disease; I50.9 Heart failure, unspecified; N18.6 End stage renal disease; Z99.2 Dependence on renal dialysis; Z88.6 Allergy status to analgesic agent; Z79.4 Long term (current) use of insulin
CPT/HCPCS: 36415; 71020; 80053; 82550; 82553; 84484; 85025; 93005; 93010; 99285

== ENCOUNTER → 2016-10-16 | Outpatient (CLI) | payer MEDICARE, MEDICAID ==
--- NOTE | 2016-10-16 15:10 | XCELERA REPORT ---
[address] [address] Lower Extremity Arterial Evaluation Name: JASPREET STAFFORD Age: 50 yrs Gender: Female : 1965 Patient Status: Outpatient Patient Location: Study Date: 10/16/2016 10:51 AM Procedure: A color flow and duplex scan of the lower extremity arteries was performed bilaterally with velocity and waveform anaylsis. Ankle brachial indicies performed. PPG's performed. Reason For Study: PVD I73.9 Ordering Physician: KIRIT POND Performed By: Dalila Mcfarland Measurements and Calculations Right Left ASSISTANT ART DIRECTOR PSV 105.2 89.1 cm/sec Prox PFA PSV 69.2 75.7 cm/sec Prox SFA PSV 106.6 121.5 cm/sec Mid SFA PSV 91.7 94.5 cm/sec Dist SFA PSV 64.7 79.6 cm/sec Prox Pop A PSV 69.8 72.1 cm/sec Dist MOI PSV 121.9 113.1 cm/sec Dist CUTTING MACHINE TENDER PSV 75.7 105.6 cm/sec Swapnil Pedis PSV 86.1 92.1 cm/sec Right Side Arterial Evaluation Normal velocity and triphasic waveforms noted from the Common Femoral artery to the infrageniculate vessels. 0 % stenosis noted. Ankle Brachial index not obtainable due to non compressibility. PPG's are multiphasic,within normal limits. Left Side Arterial Evaluation Normal velocity and triphasic waveforms noted from the Common Femoral artery to the infrageniculate vessels. 0 % stenosis noted. Ankle Brachial index not obtainable due to non compressibility. PPG's mildly attenuated in the first digit, are multiphasic,otherwise within normal limits. Interpretation Summary Normal duplex findings, in spite of non compressibility, indicating atherosclerosis. PPG's as noted. : KIRIT POND > Aron Soriano
== END ==
LOC: SP 10:45
PROVIDERS: ATTEND Podiatrist Foot & Ankle Surgery
DX: I73.9 Peripheral vascular disease, unspecified (principal)
CPT/HCPCS: 93925

== ENCOUNTER 2017-01-02 07:32 | Emergency (ER) | payer MEDICARE, MEDICAID ==
[2017-01-02] MEDS ORDERED: KETOROLAC TROMETHAMINE 60 MG/2 ML SDV IM ONE (08:19)
[2017-01-02] MEDS ORDERED: HYDROCODONE/ACETAMINOPHEN 5-325 MG TABLET PO ONE (08:19)
--- NOTE | 2017-01-02 08:29 | ER Document Report ---
ED General - General Chief Complaint: Hip Pain Stated Complaint: HIP PAIN Time Seen by Provider: 01/02/17 08:00 Mode of Arrival: Ambulatory Information source: Patient, Relative Notes: Patient is a 51-year-old morbidly obese black female comes to emergency room complaining of right hip and leg pain. Patient states that the discomfort started yesterday mostly on the right leg lateral side and has not gotten any better. Patient denies any known trauma recently. She does state she is a insulin-dependent diabetic with hypertension and is on dialysis currently. Patient has a history of back problems in the past. She is currently in no pain management. TRAVEL OUTSIDE OF THE [place] IN LAST 30 DAYS: No - HPI Patient complains to provider of: Right leg and back pain Onset: Yesterday Onset/Duration: Gradual Quality of pain: Sharp, Throbbing Severity: Moderate Pain Level: 2 Associated symptoms: None Exacerbated by: Standing, Movement, Walking Relieved by: Supine Similar symptoms previously: Yes Recently seen / treated by doctor: No - Related Data Allergies/Adverse Reactions: oxycodone HCl [From Percocet] Allergy (Verified 01/02/17 07:34) Nausea prochlorperazine edisylate [From Compazine] Allergy (Verified 01/02/17 07:34) Hallucinations prochlorperazine maleate [From Compazine] Allergy (Verified 01/02/17 07:34) Hallucinations propoxyphene napsylate [From Darvocet-N 100] Allergy (Verified 01/02/17 07:34) Hallucinations Past Medical History - General Information source: Patient - Social History Smoking Status: Never Smoker Cigarette use (# per day): No Chew tobacco use (# tins/day): No Frequency of alcohol use: None Drug Abuse: None Lives with: Family Family History: Reviewed & Not Pertinent Patient has suicidal ideation: No Patient has homicidal ideation: No - Past Medical History Cardiac Medical History: Reports: Hx Congestive Heart Failure, Hx Hypercholesterolemia, Hx Hypertension Denies: Hx Heart Attack Pulmonary Medical History: Reports: Hx Pneumonia, Hx Sleep Apnea Denies: Hx Asthma, Hx Bronchitis, Hx COPD Neurological Medical History: Denies: Hx Seizures Endocrine Medical History: Reports: Hx Diabetes Mellitus Type 1, Hx Diabetes Mellitus Type 2 Renal/ Medical History: Reports: Hx End Stage Renal Disease, Hx Kidney Stones. Denies: Hx Peritoneal Dialysis GI Medical History: Reports: Hx Gastroesophageal Reflux Disease Musculoskeltal Medical History: Denies Hx Arthritis Psychiatric Medical History: Reports: Hx Depression Past Surgical History: Reports: Hx Abdominal Surgery - peritoneal dialysis fistula, Hx Hysterectomy, Hx Tubal Ligation, Other - Peritoneal dialysis catheter placement - Immunizations Immunizations up to date: No Hx Diphtheria, Pertussis, Tetanus Vaccination: Yes - 2013 Hx Pneumococcal Vaccination: 11/19/11 Review of Systems - Review of Systems Constitutional: No symptoms reported EENT: No symptoms reported Cardiovascular: No symptoms reported Respiratory: No symptoms reported Gastrointestinal: No symptoms reported Genitourinary: No symptoms reported Female Genitourinary: No symptoms reported Musculoskeletal: Back pain, Joint pain, Muscle pain Skin: No symptoms reported Hematologic/Lymphatic: No symptoms reported Neurological/Psychological: No symptoms reported -: Yes All other systems reviewed and negative Physical Exam - Vital signs Vitals: Temp Pulse Resp BP Pulse Ox 98.4 F 78 16 180/111 H 99 01/02/17 07:36 01/02/17 07:36 01/02/17 07:36 01/02/17 07:36 01/02/17 07:36 Interpretation: Hypertensive - General General appearance: Appears well, Other - But uncomfortable In distress: None - Respiratory Respiratory status: No respiratory distress Breath sounds: Normal. No: Decreased air movement, Nonproductive cough, Productive cough, Rales, Rhonchi, Stridor, Wheezing, Other - Cardiovascular Rhythm: Regular Heart sounds: Normal auscultation Murmur: No - Abdominal Inspection: Normal Distension: No distension Bowel sounds: Normal Tenderness: Nontender - Genitourinary External exam: Normal - Back Back: Tender - Examination patient's back shows patient has mildly reproducible tenderness to palpation around the lower lumbar spine area. Particularly more on the right side. Possible spasms felt in the area. Also patient has increased discomfort with pain palpation into the right buttocks area around the sciatic notch area. Patient has good DTRs. Vascular exam is normal. Presentation of sciatica. - Extremities General upper extremity: Normal inspection General lower extremity: Tender Hip: Tender, Other - Examination patient's hip area on the right also give the presentation as discussed on back. She has reproducible tenderness at the sciatic notch area and the buttocks on the right side. Patient is good DTRs on bilateral sides. Reproducible tenderness and pain with rotation of the hip passively. Very point specific with radiation down into and behind the right thigh. Thigh: Tender Calf: Normal Ankle: Normal Foot: Normal - Neurological Neuro grossly intact: Yes Cognition: Normal Orientation: AAOx4 [place] Coma Scale Eye Opening: Spontaneous Meghan Coma Scale Verbal: Oriented [place] Coma Scale Motor: Obeys Commands [place] Coma Scale Total: 15 Speech: Normal Course - Vital Signs Vital signs: Temp Pulse Resp BP Pulse Ox 98.4 F 78 16 180/111 H 99 01/02/17 07:36 01/02/17 07:36 01/02/17 07:36 01/02/17 07:36 01/02/17 07:36 - Transfer of Care Notes: 01/02/17 09:17 I had a long discussion with patient and this is a similar presentation to her previous back problems with radiation down the leg. She is experiencing the same type discomfort as the sciatic pain she experienced in the past. At this time I do not feel that any radiological examination or test is needed she has had no current fall. I will treat her with an muscle relaxer and a light steroid. Patient is on dialysis and is insulin-dependent diabetic so she will watch her sugars and she is on insulin coverage so she will adjust her sugar as needed for any increase with the steroid. Patient will follow up with her primary care in the next few days. I suggested the patient that she may in fact need an MRI at some point so she should discuss this with her primary care physician also for possible referral to a back specialist if this continues on. Patient has not had any loss of urine or stool or discomfort in the area. Patient also has good sensation in the lower extremity on the right side with good pulses in the dorsalis pedis on the right side and good popliteal pulse. 01/02/17 09:19 Discharge - Discharge Clinical Impression: Sciatica Qualifiers: Laterality: right Qualified Code(s): M54.31 - Sciatica, right side Condition: Good Disposition: HOME, SELF-CARE Instructions: Sciatica ([facility]) Additional Instructions: As we discussed I would follow-up with your primary care physician pain continues on for possible MRI of the low back area. We are going to attempt to treat with muscle relaxer and a steroid. Moist heat or ice to the area 3 times a day with some light stretching. Return to ER if you have any concerns or problems. Prescriptions: Cyclobenzaprine HCl [Flexeril 10 mg Tablet] 10 mg PO TIDP PRN #15 tablet PRN Reason: Prednisone [Sterapred Ds] 10 mg PO ASDIR PRN #14 tab.ds.pk PRN Reason: Forms: Elevated Blood Pressure
[2017-01-02 09:42] VITALS: BP 174/107
== END 2017-01-02 09:42 | disposition home or self-care (01) ==
LOC: ER 07:32
DX: M54.31 Sciatica, right side (principal); M25.551 Pain in right hip; M79.604 Pain in right leg; E11.9 Type 2 diabetes mellitus without complications; I10 Essential (primary) hypertension; Z79.4 Long term (current) use of insulin; Z99.2 Dependence on renal dialysis
CPT/HCPCS: 99283; 96372; J1885; A9270

== ENCOUNTER 2017-03-11 04:53 | Inpatient (IN) | payer MEDICARE, MEDICAID ==
--- NOTE | 2017-03-11 05:10 | ER Document Report ---
ED Medical Screen (RME) - General Chief Complaint: Chest Pain > 30 Stated Complaint: CHEST PAIN Notes: The patient is a 51-year-old female, past medical history ESRD on nightly peritoneal dialysis, presents with 2 days of left upper chest pain and dry cough. She said the pain is worse with palpation and coughing. Last peritoneal dialysis session was last night. PE: RRR. Tenderness over left upper chest wall. I have greeted and performed a rapid initial assessment of this patient. A comprehensive ED assessment and evaluation of the patient, analysis of test results and completion of the medical decision making process will be conducted by additional ED providers. TRAVEL OUTSIDE OF THE [place] IN LAST 30 DAYS: No - Related Data Allergies/Adverse Reactions: oxycodone HCl [From Percocet] Allergy (Verified 01/02/17 07:34) Nausea prochlorperazine edisylate [From Compazine] Allergy (Verified 01/02/17 07:34) Hallucinations prochlorperazine maleate [From Compazine] Allergy (Verified 01/02/17 07:34) Hallucinations propoxyphene napsylate [From Darvocet-N 100] Allergy (Verified 01/02/17 07:34) Hallucinations Past Medical History - Social History Family history: Reviewed & Not Pertinent - Past Medical History Cardiac Medical History: Reports: Hx Congestive Heart Failure, Hx Hypercholesterolemia, Hx Hypertension Denies: Hx Heart Attack Pulmonary Medical History: Reports: Hx Pneumonia, Hx Sleep Apnea Denies: Hx Asthma, Hx Bronchitis, Hx COPD Neurological Medical History: Denies: Hx Seizures Endocrine Medical History: Reports: Hx Diabetes Mellitus Type 1, Hx Diabetes Mellitus Type 2 Renal/ Medical History: Reports: Hx End Stage Renal Disease, Hx Kidney Stones. Denies: Hx Peritoneal Dialysis GI Medical History: Reports: Hx Gastroesophageal Reflux Disease Musculoskeltal Medical History: Denies Hx Arthritis Psychiatric Medical History: Reports: Hx Depression Past Surgical History: Reports: Hx Abdominal Surgery - peritoneal dialysis fistula, Hx Hysterectomy, Hx Tubal Ligation, Other - Peritoneal dialysis catheter placement - Immunizations Immunizations up to date: No Hx Diphtheria, Pertussis, Tetanus Vaccination: Yes - 2013
[2017-03-11] MEDS ORDERED: ASPIRIN 325 MG TABLET PO ONE (05:31)
[2017-03-11 05:37] LABS: ABSOLUTE BASOPHILS # (AUTO) 0.1 10^3/uL (0.0-0.2); ABSOLUTE EOSINOPHILS # (AUTO) 0.4 10^3/uL (0.0-0.6); ABSOLUTE LYMPHOCYTES (AUTO) 2.2 10^3/uL (0.5-4.7); BASOPHILS % (AUTO) 0.9 % (0-2); EOSINOPHILS % (AUTO) 4.6 % (0-6); HEMATOCRIT 29.9 % (36.0-47.0); HEMOGLOBIN 9.7 g/dL (12.0-15.5); LYMPHOCYTES % (AUTO) 25.4 % (13-45); MEAN CORPUSCULAR HEMOGLOBIN 25.7 pg (27.0-33.4); MEAN CORPUSCULAR HGB CONC 32.4 g/dL (32.0-36.0); MEAN CORPUSCULAR VOLUME 79 fl (80-97); MONOCYTES % (AUTO) 11.3 % (3-13); PLATELET COUNT 197 10^3/uL (150-450); RED BLOOD COUNT 3.76 10^6/uL (3.72-5.28); RED CELL DISTRIBUTION WIDTH 18.7 % (11.5-14.0); SEGMENTED NEUTROPHILS % (AUTO) 57.8 % (42-78); TOTAL CELLS COUNTED % (AUTO) 100 %; WHITE BLOOD COUNT 8.7 10^3/uL (4.0-10.5)
[2017-03-11 05:43] LABS: ALANINE AMINOTRANSFERASE 35 U/L (9-52); ALBUMIN 3.7 g/dL (3.5-5.0); ALKALINE PHOSPHATASE 123 U/L (38-126); ASPARTATE AMINO TRANSFERASE 20 U/L (14-36); BILIRUBIN,DIRECT 0.7 mg/dL (0.0-0.4); BILIRUBIN,TOTAL 0.7 mg/dL (0.2-1.3); BLOOD UREA NITROGEN 83 mg/dL (7-20); CALCIUM 7.9 mg/dL (8.4-10.2); CARBON DIOXIDE 24 mmol/L (22-30); CHLORIDE 97 mmol/L (98-107); CREATINE KINASE 115 U/L (30-135); GLUCOSE 228 mg/dL (75-110); POTASSIUM 3.7 mmol/L (3.6-5.0); TOTAL PROTEIN 6.9 g/dL (6.3-8.2)
--- NOTE | 2017-03-11 05:59 | RADIOLOGY REPORT (SQ) ---
EXAM DESCRIPTION: CHEST SINGLE VIEW CLINICAL HISTORY: 51 years, Female, chest pain COMPARISON: None. NUMBER OF VIEWS: 1 FINDINGS: Moderate lung volume, clear parenchyma, mild enlargement of the cardiac silhouette, and intact bony thorax. IMPRESSION: No acute cardiopulmonary findings.
[2017-03-11 06:12] LABS: TROPONIN I 0.061 ng/mL
[2017-03-11 07:03] LABS: ANION GAP 20 (5-19)
[2017-03-11] MEDS ORDERED: FUROSEMIDE INJ/PF 40 MG/4 ML SDV IV ONE (08:19)
--- NOTE | 2017-03-11 08:22 | ER Document Report ---
ED General - General Chief Complaint: Chest Pain > 30 Stated Complaint: CHEST PAIN Time Seen by Provider: 03/11/17 05:10 Information source: Patient TRAVEL OUTSIDE OF THE [place] IN LAST 30 DAYS: No - HPI Patient complains to provider of: 3 days Quality of pain: Pressure Severity: Moderate Associated symptoms: Shortness of breath Exacerbated by: Denies Relieved by: Denies Similar symptoms previously: Yes Recently seen / treated by doctor: No Notes: Patient states that for 3 days she has had pressure-like pain on her chest. She states it is associated with this of breath. Patient sees nurse practitioner Julia Gomez as her primary care provider. - Related Data Allergies/Adverse Reactions: oxycodone HCl [From Percocet] Allergy (Verified 01/02/17 07:34) Nausea prochlorperazine edisylate [From Compazine] Allergy (Verified 01/02/17 07:34) Hallucinations prochlorperazine maleate [From Compazine] Allergy (Verified 01/02/17 07:34) Hallucinations propoxyphene napsylate [From Darvocet-N 100] Allergy (Verified 01/02/17 07:34) Hallucinations Past Medical History - General Information source: Patient, Relative - Social History Smoking Status: Smoker,Current Status Unk Chew tobacco use (# tins/day): No Frequency of alcohol use: None Drug Abuse: None Lives with: Alone Family History: Reviewed & Not Pertinent Patient has suicidal ideation: No Patient has homicidal ideation: No - Past Medical History Cardiac Medical History: Reports: Hx Congestive Heart Failure, Hx Hypercholesterolemia, Hx Hypertension Denies: Hx Heart Attack Pulmonary Medical History: Reports: Hx Pneumonia, Hx Sleep Apnea Denies: Hx Asthma, Hx Bronchitis, Hx COPD Neurological Medical History: Reports: None. Denies: Hx Seizures Endocrine Medical History: Reports: Hx Diabetes Mellitus Type 1, Hx Diabetes Mellitus Type 2 Renal/ Medical History: Reports: Hx End Stage Renal Disease - Peritoneal dialysis, Hx Kidney Stones. Denies: Hx Peritoneal Dialysis Malignancy Medical History: Reports: None GI Medical History: Reports: Hx Gastroesophageal Reflux Disease Musculoskeltal Medical History: Reports None, Denies Hx Arthritis Psychiatric Medical History: Reports: Hx Depression Traumatic Medical History: Reports: None Past Surgical History: Reports: Hx Abdominal Surgery - peritoneal dialysis fistula, Hx Hysterectomy, Hx Tubal Ligation, Other - Peritoneal dialysis catheter placement - Immunizations Immunizations up to date: No Hx Diphtheria, Pertussis, Tetanus Vaccination: Yes - 2013 Hx Pneumococcal Vaccination: 11/19/11 Review of Systems - Review of Systems Constitutional: No symptoms reported EENT: No symptoms reported Cardiovascular: See HPI Respiratory: See HPI Gastrointestinal: No symptoms reported Genitourinary: No symptoms reported Female Genitourinary: No symptoms reported Musculoskeletal: No symptoms reported Skin: No symptoms reported Hematologic/Lymphatic: No symptoms reported Neurological/Psychological: No symptoms reported Physical Exam - Vital signs Vitals: Temp Pulse Resp BP Pulse Ox 98.0 F 82 23 H 158/94 H 96 03/11/17 04:59 03/11/17 04:59 03/11/17 04:59 03/11/17 04:59 03/11/17 04:59 Interpretation: Hypertensive - Notes Notes: PHYSICAL EXAMINATION: GENERAL: This -Swedish female lying in bed in no acute distress HEAD: Atraumatic, normocephalic. EYES: Pupils equal round and reactive to light, extraocular movements intact, conjunctiva are normal. ENT: Nares patent, oropharynx clear without exudates. Moist mucous membranes. NECK: Normal range of motion, supple without lymphadenopathy LUNGS: Bi basilar crackles HEART: Regular rate and rhythm without murmurs ABDOMEN: Obese nontender, nondistended abdomen. No signs or symptoms of infection peritoneal cath site. no guarding, no rebound. No masses appreciated. Female : deferred Musculoskeletal: Normal range of motion. 1 pitting edema bilateral lower extremities. no cyanosis. NEUROLOGICAL: Cranial nerves grossly intact. Normal speech, normal gait. Normal sensory, motor exams PSYCH: Normal mood, normal affect. SKIN: Warm, Dry, normal turgor, no rashes or lesions noted. Course - Vital Signs Vital signs: Temp Pulse Resp BP Pulse Ox 98.0 F 82 12 145/92 H 93 03/11/17 04:59 03/11/17 04:59 03/11/17 07:01 03/11/17 07:01 03/11/17 07:01 - Laboratory Result Diagrams: 03/11/17 05:15 03/11/17 05:15 Laboratory results interpreted by me: 03/11/17 03/11/17 03/11/17 05:15 05:15 05:15 Hgb 9.7 L Hct 29.9 L MCV 79 L MCH 25.7 L RDW 18.7 H Chloride 97 L Anion Gap 20 H BUN 83 H Creatinine 18.01 H Est GFR ( Amer) 3 L Est GFR (Non-Af Amer) 2 L Glucose 228 H Calcium 7.9 L Direct Bilirubin 0.7 H NT-Pro-B Natriuret Pep 4250 H - Diagnostic Test Radiology reviewed: Image reviewed, Reports reviewed Radiology results interpreted by me: 03/11/17 09:13 Mild pulmonary edema - EKG Interpretation by Me EKG shows normal: Sinus rhythm - 81. Poor R-wave progression. When compared to previous EKG there are: No significant change Discharge - Discharge Clinical Impression: Chest pain, CHF (congestive heart failure), Pulmonary vascular congestion, Chest pain, rule out acute myocardial infarction Condition: Stable Admitting Provider: Hospitalist - Dr. Grissom Unit Admitted: Telemetry Referrals: JULIA GOMEZ PA-C [Primary Care Provider] - Follow up as needed
--- NOTE | 2017-03-11 08:52 | EKG REPORT ---
SEVERITY:- ABNORMAL ECG - SINUS RHYTHM NONSPECIFIC INTRAVENTRICULAR CONDUCTION DELAY PROBABLE LEFT VENTRICULAR HYPERTROPHY : Confirmed by: Camille Pollock 11-Mar-2017 08:51:36
[2017-03-11] MEDS ORDERED: ZOLPIDEM TARTRATE 5 MG TABLET PO PRN (12:58)
[2017-03-11] MEDS ORDERED: ONDANSETRON 4 MG TAB.RAPDIS PO PRN (13:33)
[2017-03-11] MEDS ORDERED: ONDANSETRON HCL INJ/PF 4 MG/2 ML SDV IV PRN (13:33)
[2017-03-11] MEDS ORDERED: DEXTROSE 40% GEL 15 GM TUBE PO PRN ×2 (13:37)
[2017-03-11] MEDS ORDERED: DEXTROSE 50%-WATER 25 GM/50 ML DISP.SYRIN IV PRN ×2 (13:37)
[2017-03-11] MEDS ORDERED: GLUCAGON,HUMAN RECOMB 1 MG INJ IM PRN (13:37)
[2017-03-11] MEDS ORDERED: LANSOPRAZOLE 15 MG TAB.RAP.DR PO ONE (13:45)
[2017-03-11 15:09] LABS: CREATINE KINASE MB 0.77 ng/mL (<4.55); TROPONIN I 0.052 ng/mL
--- NOTE | 2017-03-11 15:18 | Physician Advisory Note ---
Physician Advisor ProgressNote .: Pursuant to the plan for Alyse Olson, I have reviewed the medical record for this patient. Physician Advisor Statement: Pleaes consider documenting, if you agree: 1. "Chronic Diastolic CHF" (or "Acute on Chronic DIastolic CHF, evidenced by __ ____" [cardiomegaly on CXR, BLL rales, BLE edema - any JVD, or PND, or orthopena too?) 2. Anemia of CKD 3. obeisty with BMI 51.5 Status: approp'ly Obs to start. If she cannot safely go home 03/12, then may document ongoing concerns/clinical issues, & then make Inpt. Thanks! CK
[2017-03-11] MEDS ORDERED: (PENDING PHARMACY ID) (Hydralazine Hcl [Hydralazine Hcl] 100 MG) PO SCH (15:30)
[2017-03-11] MEDS ORDERED: (PENDING PHARMACY ID) (Cinacalcet Hcl [Sensipar 60 Mg Tablet] 60 MG) PO SCH (15:30)
--- NOTE | 2017-03-11 15:40 | PDOC H&P ---
History of Present Illness Admission Date/PCP: 03/11/17 09:40 JULIA GOMEZ PA-C History of Present Illness: JASPREET STAFFORD is a very pleasant 51-year-old female with end-stage renal disease on peritoneal dialysis for the past 3 years. Past medical history includes Insulin-dependent diabetes Anemia of chronic disease Hypertension Gastroesophageal reflux disease Asthma Diabetic neuropathy She normally does peritoneal dialysis for 9 hours every night. Last night she was undergoing peritoneal dialysis however on 4 AM she got sharp left-sided chest pain which would come and go and she called EMS and was brought into the emergency room. She took an aspirin which relieved her pain. She is currently chest pain-free. Cardiac BNP is elevated. Chest x-ray shows increased interstitial markings. Twelve-lead EKG shows normal sinus rhythm with no acute T-wave or ST segment changes. 3 sets of cardiac enzymes have been negative. I think she has acute diastolic CHF exacerbation due to fluid overload. She tells me that her ammonia operator asked her to stop her Lasix approximately 2 weeks ago. She does not make much urine at baseline. Last echocardiogram was done in July 2015. It showed a left ventricular ejection fraction of 55%, normal systolic function and impaired LV relaxation. Past Medical History Cardiac Medical History: Reports: Congestive Heart Failure, Hyperlipidema, Hypertension Denies: Myocardial Infarction Pulmonary Medical History: Reports: Pneumonia, Sleep Apnea Denies: Asthma, Bronchitis, Chronic Obstructive Pulmonary Disease (COPD) Neurological Medical History: Reports: None Denies: Seizures Endocrine Medical History: Reports: Diabetes Mellitus Type 1, Diabetes Mellitus Type 2 Renal/ Medical History: Reports: End Stage Renal Disease - Peritoneal dialysis Malignancy Medical History: Reports: None GI Medical History: Reports: Gastroesophageal Reflux Disease Musculoskeltal Medical History: Reports: None Denies: Arthritis Psychiatric Medical History: Reports: Depression Traumatic Medical History: Reports: None Hematology: Reports: Anemia Past Surgical History Past Surgical History: Reports: Hysterectomy, Tubal Ligation, Other - Peritoneal dialysis catheter placement Social History Lives with: Alone Smoking Status: Never Smoker Frequency of Alcohol Use: None Hx Recreational Drug Use: No Drugs: None Hx Prescription Drug Abuse: No - Advance Directive Resuscitation Status: Full Code Family History Family History: Reviewed & Not Pertinent, DM, Hypertension Parental Family History Reviewed: Yes Children Family History Reviewed: Yes Sibling(s) Family History Reviewed.: Yes Medication/Allergy Home Medications: Amlodipine Besylate [Norvasc 5 mg Tablet] 5 mg PO DAILY 03/11/17 B Complex W-C No.20/Folic Acid [Boris Caps Softgel] 1 mg PO DAILY 03/11/17 Calcitriol [Rocaltrol 0.25 Mcg Capsule] 0.5 cap PO DAILY 03/11/17 Carvedilol [Coreg 25 mg Tablet] 25 mg PO Q12 03/11/17 Cinacalcet HCl [Sensipar 60 mg Tablet] 60 mg PO DAILY 03/11/17 Furosemide [Lasix 40 mg Tablet] 40 mg PO BID 03/11/17 Hydralazine HCl 100 mg PO Q8 03/11/17 Insulin Lispro [Humalog Kwikpen] unit SQ 03/11/17 Pregabalin [Lyrica 75 mg Capsule] 75 mg PO Q12 03/11/17 Sevelamer Carbonate [Renvela] 1,600 mg PO ASDIR PRN 03/11/17 Sevelamer Carbonate [Renvela] 3,200 mg PO AC 03/11/17 Allergies/Adverse Reactions: oxycodone HCl [From Percocet] Allergy (Verified 01/02/17 07:34) Nausea prochlorperazine edisylate [From Compazine] Allergy (Verified 01/02/17 07:34) Hallucinations prochlorperazine maleate [From Compazine] Allergy (Verified 01/02/17 07:34) Hallucinations propoxyphene napsylate [From Darvocet-N 100] Allergy (Verified 01/02/17 07:34) Hallucinations Physical Exam Vital Signs: Temp Pulse Resp BP Pulse Ox 98.0 F 75 16 146/103 H 98 03/11/17 04:59 03/11/17 10:35 03/11/17 10:48 03/11/17 10:48 03/11/17 10:48 Intake & Output 03/10/17 03/11/17 03/12/17 06:59 06:59 06:59 Intake Total 1000 Output Total 2400 Balance -1400 Weight 177.2 kg General appearance: PRESENT: no acute distress, obese Head exam: PRESENT: atraumatic, normocephalic Eye exam: PRESENT: EOMI, PERRLA. ABSENT: nystagmus, scleral icterus Ear exam: PRESENT: normal external ear exam Neck exam: ABSENT: tenderness, tracheal deviation Respiratory exam: PRESENT: unlabored. ABSENT: crackles Cardiovascular exam: PRESENT: RRR GI/Abdominal exam: PRESENT: normal bowel sounds, soft. ABSENT: tenderness Rectal exam: PRESENT: deferred Extremities exam: ABSENT: calf tenderness, pedal edema Neurological exam: PRESENT: alert, awake, oriented to person, oriented to place , oriented to time, oriented to situation Psychiatric exam: PRESENT: appropriate affect Results Laboratory Results: 03/11/17 03/11/17 10:15 14:12 CK-MB (CK-2) 0.77 Troponin I 0.056 0.052 Impressions: Chest X-Ray 03/11/17 05:05 IMPRESSION: No acute cardiopulmonary findings. Status: Image reviewed by me Assessment & Plan - Diagnosis (1) Diastolic CHF Is this a current diagnosis for this admission?: Yes Plan: Will need dialysis. I spoke to her ammonia operator Dr. Moran who said she would put in dialysis orders (2) Chest pain Is this a current diagnosis for this admission?: Yes Plan: I think this is secondary to pulmonary edema. 3 sets of cardiac enzymes were negative. EKG shows no changes. (3) Pulmonary vascular congestion Is this a current diagnosis for this admission?: Yes Plan: As above (4) Anemia in chronic kidney disease (CKD) Qualifiers: Chronic kidney disease stage: on chronic dialysis Qualified Code(s): N18.6 - End stage renal disease; D63.1 - Anemia in chronic kidney disease; D63.1 - Anemia in chronic kidney disease; Z99.2 - Dependence on renal dialysis; Z99.2 - Dependence on renal dialysis; Z99.2 - Dependence on renal dialysis; Z99.2 - Dependence on renal dialysis Is this a current diagnosis for this admission?: Yes Plan: Per nephrology service (5) Asthma Qualifiers: Asthma severity: unspecified severity Asthma complication type: uncomplicated Qualified Code(s): J45.909 - Unspecified asthma, uncomplicated Is this a current diagnosis for this admission?: No (6) ESRD (end stage renal disease) on dialysis Is this a current diagnosis for this admission?: Yes Plan: Regimen per nephrology service (7) GERD (gastroesophageal reflux disease) Qualifiers: Esophagitis presence: esophagitis presence not specified Qualified Code(s) : K21.9 - Gastro-esophageal reflux disease without esophagitis Is this a current diagnosis for this admission?: Yes (8) History of peritoneal dialysis Is this a current diagnosis for this admission?: Yes (9) Hypertension Qualifiers: Hypertension type: essential hypertension Qualified Code(s): I10 - Essential (primary) hypertension Is this a current diagnosis for this admission?: Yes Plan: Continue outpatient medications (10) Volume overload Qualifiers: Hypervolemia type: unspecified Qualified Code(s): E87.70 - Fluid overload, unspecified (11) Diabetes mellitus type 1 Qualifiers: Diabetes mellitus complication status: with kidney complications Diabetes mellitus complication detail: with chronic kidney disease Chronic kidney disease stage: on chronic dialysis Qualified Code(s): E10.22 - Type 1 diabetes mellitus with diabetic chronic kidney disease (12) Diabetic nephropathy Qualifiers: Diabetes mellitus type: type 1 Qualified Code(s): E10.21 - Type 1 diabetes mellitus with diabetic nephropathy - Time Time Spent: 50 to 70 Minutes - Plan Summary Plan Summary: Observation status for treatment of fluid overload with urgent dialysis. Continue her outpatient medications. Anticipated she will not need more than one midnight in the hospital.
[2017-03-11] MEDS ORDERED: HYDRALAZINE HCL 50 MG TABLET PO ONE (17:00)
[2017-03-11] MEDS ORDERED: SEVELAMER HCL 400 MG TABLET PO SCH (18:00)
[2017-03-11] MEDS ORDERED: AMLODIPINE BESYLATE 5 MG TABLET PO ONE (18:00)
[2017-03-11] MEDS ORDERED: CALCITRIOL 0.25 MCG CAPSULE PO ONE (18:00)
[2017-03-11] MEDS ORDERED: FOLIC ACID/VITAMIN B COMP W-C CAPSULE PO ONE (18:00)
[2017-03-11] MEDS ORDERED: CINACALCET HCL 30 MG TABLET PO ONE (18:00)
--- NOTE | 2017-03-11 18:44 | PDOC CONSULTATION ---
Consultation Consult Date: 03/11/17 Attending physician:: WENDY CHAN Consult reason:: I was asked by Dr. Enrique mcclelland to see the patient to manage her peritoneal dialysis in a patient with end-stage renal disease with fluid overload. History of Present Illness Admission Date/PCP: 03/11/17 09:40 JULIA GOMEZ PA-C History of Present Illness: The patient is a 51-year-old -[place] lady known to me with history of end-stage renal disease secondary to diabetic nephropathy and hypertensive nephrosclerosis on chronic peritoneal dialysis, also with diabetes mellitus type 2 and hypertension who presented this morning in the emergency room because of chest pains. Patient tells me that she has been having chest pains for the last 3 days and this morning at around 4 AM the chest pains woke her up. It is an intensity of 8/10 this morning felt on a localized area on the left side of her chest with radiation to the back. This is associated with shortness of breath and lasted for 1 hour. She denies any diaphoresis. She has some cough and this morning she has some whitish phlegm. She denies any fever, chills, abdominal pain, cloudy peritoneal dialysis effluent. When I saw her this afternoon she said her chest pain is better but she still has it. Her blood pressure is elevated because she has not taken her blood pressure medications a whole day. Of note the patient has been seen by senior technical writer Dr. Tesfaye sometime last year. Records currently unavailable. Patient did recall that she underwent cardiac stress tests which she was told was fine at that time. I am seeing her while she is doing her second state exchange for the day. Since we do not have the cycler machine here in the hospital we are going to switch her to continuous ambulatory peritoneal dialysis. So far she is otherwise hemodynamically stable and she does not have any other complaints aside from the above. Past Medical History Cardiac Medical History: Reports: CHF-Diastolic, Hyperlipidemia, Hypertension- primary Pulmonary Medical History: Reports: Asthma, Pneumonia, Sleep Apnea Endocrine Medical History: Reports: Diabetes Mellitus Type 2 Complications of Diabetes: Reports: Nephropathy Renal/ Medical History: Reports: End Stage Renal Disease - Peritoneal dialysis , Hyperphosphatemia, Nephrolithiasis, Renal Osteodystropy, Secondary Hyperparathyroidism GI Medical History: Reports: Gastroesophageal Reflux Disease Psychiatric Medical History: Reports: Depression Traumatic Medical History: Reports: None Hematology Medical History: Reports Anemia of Chronic Kidney Disease Past Surgical History Past Surgical History: Reports: Hysterectomy, Tubal Ligation, Other - Peritoneal dialysis catheter placement Social History Lives with: Alone Smoking Status: Never Smoker Frequency of Alcohol Use: None Hx Recreational Drug Use: No Drugs: None Hx Prescription Drug Abuse: No - Advance Directive Resuscitation Status: Full Code Family History Family History: Chronic Kidney Disease - Father on dialysis, DM - Father, Hypertension - Father Parental Family History Reviewed: Yes Children Family History Reviewed: NA Sibling(s) Family History Reviewed.: Yes Medication/Allergy Home Medications: Amlodipine Besylate [Norvasc 5 mg Tablet] 5 mg PO DAILY 03/11/17 B Complex W-C No.20/Folic Acid [Boris Caps Softgel] 1 mg PO DAILY 03/11/17 Calcitriol [Rocaltrol 0.25 Mcg Capsule] 0.5 cap PO DAILY 03/11/17 Carvedilol [Coreg 25 mg Tablet] 25 mg PO Q12 03/11/17 Cinacalcet HCl [Sensipar 60 mg Tablet] 60 mg PO DAILY 03/11/17 Furosemide [Lasix 40 mg Tablet] 40 mg PO BID 03/11/17 Hydralazine HCl 100 mg PO Q8 03/11/17 Insulin Glargine,Hum.rec.anlog [Toujeo Solostar] 16 unit SQ QHS 03/11/17 Insulin Lispro [Humalog Kwikpen] unit SQ 03/11/17 Pregabalin [Lyrica 75 mg Capsule] 75 mg PO Q12 03/11/17 Sevelamer Carbonate [Renvela] 1,600 mg PO ASDIR PRN 03/11/17 Sevelamer Carbonate [Renvela] 3,200 mg PO AC 03/11/17 Allergies/Adverse Reactions: oxycodone HCl [From Percocet] Allergy (Verified 01/02/17 07:34) Nausea prochlorperazine edisylate [From Compazine] Allergy (Verified 01/02/17 07:34) Hallucinations prochlorperazine maleate [From Compazine] Allergy (Verified 01/02/17 07:34) Hallucinations propoxyphene napsylate [From Darvocet-N 100] Allergy (Verified 01/02/17 07:34) Hallucinations Review of Systems All systems: reviewed and no additional remarkable complaints except as stated Review of Systems: Constitutional: ABSENT: chills, fatigue, fever(s), headache(s), weight gain, weight loss Eyes: ABSENT: visual disturbances Ears: ABSENT: hearing changes Cardiovascular: ABSENT: Dyspnea on exertion, edema, orthropnea, palpitations; admits chest pain Respiratory: ABSENT: Hemoptysis; admits occasional cough and shortness of breath Gastrointestinal: ABSENT: abdominal pain, constipation, diarrhea, hematemesis, hematochezia, nausea, vomiting Genitourinary: ABSENT: dysuria, hematuria Musculoskeletal: ABSENT: joint swelling Integumentary: ABSENT: rash, wounds Neurological: ABSENT: abnormal gait, abnormal speech, confusion, dizziness, focal weakness, numbness, syncope Psychiatric: ABSENT: anxiety, depression Endocrine: ABSENT: cold intolerance, heat intolerance, polydipsia, polyuria Hematologic/Lymphatic: ABSENT: easy bleeding, easy bruising, lymphadenopathy Physical Exam Vital Signs: Temp Pulse Resp BP Pulse Ox 98.0 F 75 16 146/103 H 98 03/11/17 04:59 03/11/17 10:35 03/11/17 10:48 03/11/17 10:48 03/11/17 10:48 Intake & Output 03/10/17 03/11/17 03/12/17 06:59 06:59 06:59 Intake Total 1000 Output Total 2400 Balance -1400 Weight 177.2 kg Exam: General appearance: no acute distress, cooperative, well-developed, well- nourished Head exam: PRESENT: atraumatic, normocephalic Eye exam: PRESENT: Conjunctiva slightly pale, EOMI, PERRLA. ABSENT: conjunctival injection, scleral icterus Mouth exam: PRESENT: moist, neck supple, tongue midline Neck exam: PRESENT: full ROM. ABSENT: carotid bruit, JVD, lymphadenopathy, thyromegaly Respiratory exam: PRESENT: clear to auscultation bilaterally. ABSENT: rales, rhonchi, stridor, wheezes Cardiovascular exam: PRESENT: RRR, +S1, +S2. She has localized reproducible point tenderness on the left anterior side of her chest. ABSENT: systolic murmur Pulses: PRESENT: normal radial pulses, normal dorsalis pedis pulses GI/Abdominal exam: PRESENT: normal bowel sounds, soft. Good exit site without any drainage ABSENT: guarding, mass, tenderness Rectal exam: deferred Extremities exam: PRESENT: full ROM. ABSENT: calf tenderness, pedal edema Musculoskeletal: PRESENT: full ROM. ABSENT: deformity Neurological exam: PRESENT: alert, Awake, Oriented to person, Oriented to place , Oriented to time, reflexes normal, CN II-XII grossly intact. ABSENT: motor sensory deficit Psychiatric exam: PRESENT: appropriate affect, normal mood. ABSENT: homicidal ideation, suicidal ideation Skin exam: PRESENT: intact, dry, warm. ABSENT: rash Results Laboratory Results: 03/11/17 03/11/17 10:15 14:12 CK-MB (CK-2) 0.77 Troponin I 0.056 0.052 Impressions: Chest X-Ray 03/11/17 05:05 IMPRESSION: No acute cardiopulmonary findings. Assessment & Plan - Diagnosis (1) Chest pain, rule out acute myocardial infarction Is this a current diagnosis for this admission?: Yes Plan: Agree with rule out VT protocol. Currently chest pain is improved. She has a localized point tenderness in her chest which could also point to costochondritis if an acute cardiac event is ruled out. (2) Pulmonary vascular congestion Is this a current diagnosis for this admission?: Yes Plan: Patient is a little bit over her dry weight with some pulmonary vascular congestion on chest x-ray. (3) ESRD (end stage renal disease) on dialysis Is this a current diagnosis for this admission?: Yes Plan: We will do continuous and retroperitoneal dialysis while here in the hospital. We will do 6 exchanges every 4 hours with fill volume of 3 L for each exchange. I will use 2.5% 4.25% as instructed. We will continue to monitor daily weights and follow exit site protocol. Monitor ultrafiltration. (4) Anemia in chronic kidney disease (CKD) Qualifiers: Chronic kidney disease stage: on chronic dialysis Qualified Code(s): N18.6 - End stage renal disease; D63.1 - Anemia in chronic kidney disease; D63.1 - Anemia in chronic kidney disease; Z99.2 - Dependence on renal dialysis; Z99.2 - Dependence on renal dialysis; Z99.2 - Dependence on renal dialysis; Z99.2 - Dependence on renal dialysis Is this a current diagnosis for this admission?: Yes (5) Hypertension Qualifiers: Hypertension type: essential hypertension Qualified Code(s): I10 - Essential (primary) hypertension Is this a current diagnosis for this admission?: Yes Plan: Resume all blood pressure medications. (6) Diabetes mellitus type 2 in obese Is this a current diagnosis for this admission?: Yes - Notes Notes: Case discussed with Dr. Chan. I will continue to follow the patient with you and supervise her peritoneal dialysis. Thank you very much for this consultation. - Time Time Spent: 50 to 70 Minutes
[2017-03-11] MEDS ORDERED: POTASSIUM CHLORIDE 10 MEQ TABLET.SA PO ONE (19:30)
[2017-03-11] MEDS: PREGABALIN 75 MG CAPSULE PO SCH (20:34)
[2017-03-11] MEDS: CARVEDILOL 12.5 MG TABLET PO SCH (20:37)
[2017-03-11 21:00] LABS: CREATINE KINASE MB 0.87 ng/mL (<4.55); TROPONIN I 0.053 ng/mL
[2017-03-11] MEDS ORDERED: GENTAMICIN SULFATE 0.1% CREAM 15 GM TP ONE (22:00)
[2017-03-11] MEDS: GENTAMICIN SULFATE 0.1% CREAM 15 GM TP SCH (22:30)
[2017-03-11] MEDS: HYDRALAZINE HCL 50 MG TABLET PO SCH (22:30)
[2017-03-12 03:24] LABS: TROPONIN I 0.043 ng/mL
[2017-03-12] MEDS: HYDRALAZINE HCL 50 MG TABLET PO SCH ×3 (06:21→21:37)
[2017-03-12] MEDS: PREGABALIN 75 MG CAPSULE PO SCH ×2 (06:21→17:21)
[2017-03-12] MEDS: LANSOPRAZOLE 15 MG TAB.RAP.DR PO SCH (06:21)
[2017-03-12] MEDS: CARVEDILOL 12.5 MG TABLET PO SCH ×2 (06:22→17:22)
[2017-03-12 06:49] LABS: HEMATOCRIT 30.1 % (36.0-47.0); HEMOGLOBIN 9.6 g/dL (12.0-15.5); MEAN CORPUSCULAR HEMOGLOBIN 25.7 pg (27.0-33.4); MEAN CORPUSCULAR HGB CONC 32.1 g/dL (32.0-36.0); MEAN CORPUSCULAR VOLUME 80 fl (80-97); PLATELET COUNT 178 10^3/uL (150-450); RED BLOOD COUNT 3.75 10^6/uL (3.72-5.28); RED CELL DISTRIBUTION WIDTH 18.9 % (11.5-14.0); WHITE BLOOD COUNT 8.8 10^3/uL (4.0-10.5)
[2017-03-12 06:59] LABS: MAGNESIUM 1.9 mg/dL (1.6-2.3); PHOSPHORUS 8.8 mg/dL (2.5-4.5); TRIGLYCERIDES 231 mg/dL (<150)
[2017-03-12 07:10] LABS: DIRECT LDL 54 mg/dL (<100)
[2017-03-12 07:13] LABS: VLDL CHOLESTEROL 46.2 mg/dL (10-31)
[2017-03-12] MEDS: SEVELAMER HCL 400 MG TABLET PO SCH ×3 (08:16→17:20)
[2017-03-12] MEDS: CALCIUM ACETATE 667 MG CAPSULE PO SCH ×3 (08:17→17:21)
[2017-03-12] MEDS ORDERED: CALCITRIOL 0.25 MCG CAPSULE PO SCH (10:00)
[2017-03-12] MEDS: CALCITRIOL 0.25 MCG CAPSULE PO SCH (10:48)
[2017-03-12] MEDS: POTASSIUM CHLORIDE 10 MEQ TABLET.SA PO SCH (10:49)
[2017-03-12] MEDS: FOLIC ACID/VITAMIN B COMP W-C CAPSULE PO SCH (10:50)
[2017-03-12] MEDS: AMLODIPINE BESYLATE 5 MG TABLET PO SCH (10:50)
[2017-03-12] MEDS: ASPIRIN 81 MG TABLET, ENT COATED PO SCH (10:51)
[2017-03-12] MEDS ORDERED: IPRATROPIUM/ALBUTEROL 0.5-2.5 MG/3 ML AMPUL NEB PRN (11:29)
[2017-03-12] MEDS ORDERED: ACETAMINOPHEN 325 MG TABLET PO PRN (11:32)
[2017-03-12] MEDS: CINACALCET HCL 30 MG TABLET PO SCH (12:15)
[2017-03-12] MEDS: INSULIN LISPRO 100 UNIT/ML 3 ML VIAL SUBCUT PRN ×3 (14:23→22:09)
--- NOTE | 2017-03-12 16:25 | PDOC PROGRESS REPORT ---
Subjective Progress Note for:: 03/12/17 Subjective:: Patient appears to be better today. She said this morning she has some difficulty breathing so she was started on some breathing treatments. She has some dry cough but unable to expectorate any phlegm. She is afebrile. Her CAPD is doing well without any problems. Her ultrafiltration is adequate. She is currently on her dry weight. Blood pressures are controlled. Reason For Visit: FLUID OVERLOAD,CHEST PAIN, ESRD ON PD Physical Exam Vital Signs: Temp Pulse Resp BP Pulse Ox 97.9 F 79 16 139/71 H 96 03/12/17 11:14 03/12/17 11:44 03/12/17 11:44 03/12/17 07:30 03/12/17 11:14 Intake & Output 03/11/17 03/12/17 03/13/17 06:59 06:59 06:59 Intake Total 07042 Output Total 16996 Balance -890 Weight 173.2 kg 173.2 kg Exam: General appearance: PRESENT: no acute distress, cooperative, well-developed, well-nourished Head exam: PRESENT: atraumatic, normocephalic Eye exam: PRESENT: conjunctiva pink, PERRLA. ABSENT: scleral icterus Neck exam: ABSENT: JVD Respiratory exam: PRESENT: Normal breath sounds. ABSENT: crackles, rales, rhonchi, unlabored, wheezes Cardiovascular exam: PRESENT: Regular rate rhythm -+S1, +S2. ABSENT: diastolic murmur, systolic murmur GI/Abdominal exam: PRESENT: normal bowel sounds, soft. ABSENT: guarding, mass, tenderness Extremities exam: ABSENT: No edema Neurological exam: PRESENT: alert, awake, oriented to person, place and time. Skin exam: PRESENT: dry, warm, Results Laboratory Results: 03/12/17 06:04 03/12/17 03/12/17 03/12/17 06:04 06:04 06:04 WBC 8.8 RBC 3.75 Hgb 9.6 L Hct 30.1 L MCV 80 MCH 25.7 L MCHC 32.1 RDW 18.9 H Plt Count 178 Phosphorus 8.8 H Magnesium 1.9 Triglycerides 231 H Cholesterol 150.20 LDL Cholesterol Direct 54 VLDL Cholesterol 46.2 H HDL Cholesterol 24 L TSH 1.26 03/11/17 03/11/17 03/11/17 10:15 14:12 20:29 CK-MB (CK-2) 0.77 0.87 Troponin I 0.056 0.052 0.053 03/12/17 02:34 CK-MB (CK-2) 1.00 Troponin I 0.043 Impressions: Chest X-Ray 03/11/17 05:05 IMPRESSION: No acute cardiopulmonary findings. Assessment & Plan - Diagnosis (1) Chest pain, rule out acute myocardial infarction Is this a current diagnosis for this admission?: Yes Plan: Cardiac enzymes not consistent with acute cardiac event. Her chest pain is atypical and possibly pleuritic if not musculoskeletal. (2) Pulmonary vascular congestion Is this a current diagnosis for this admission?: Yes Plan: Patient currently on her dry weight. (3) ESRD (end stage renal disease) on dialysis Is this a current diagnosis for this admission?: Yes Plan: We will do continuous ambulatory peritoneal dialysis while here in the hospital. We will do 6 exchanges every 4 hours with fill volume of 3 L for each exchange. I will use 2.5% 4.25% as instructed. We will continue to monitor daily weights and follow exit site protocol. Monitor ultrafiltration. (4) Anemia in chronic kidney disease (CKD) Qualifiers: Chronic kidney disease stage: on chronic dialysis Qualified Code(s): N18.6 - End stage renal disease; D63.1 - Anemia in chronic kidney disease; D63.1 - Anemia in chronic kidney disease; Z99.2 - Dependence on renal dialysis; Z99.2 - Dependence on renal dialysis; Z99.2 - Dependence on renal dialysis; Z99.2 - Dependence on renal dialysis Is this a current diagnosis for this admission?: Yes Plan: We will give her Procrit 20,000 units subcutaneously 1 dose today. (5) Hypertension Qualifiers: Hypertension type: essential hypertension Qualified Code(s): I10 - Essential (primary) hypertension Is this a current diagnosis for this admission?: Yes Plan: Resume all blood pressure medications. Currently well controlled. (6) Diabetes mellitus type 2 in obese Is this a current diagnosis for this admission?: Yes - Time Time with patient: 15-25 minutes
--- NOTE | 2017-03-12 16:43 | Physician Advisory Note ---
Physician Advisor ProgressNote .: [facility] medical record for this patient. Physician Advisor Statement: Nephrol says pt is at dry wt today, so payer will be expecting pt to be d/c'd today.... If this Medicare pt cannot be safely d/c'd before MN tonight, please document explicitly the clinical reasons she needs to stay a 2nd MN, & may then change to Inpatient status if it is clinical reasons & not "pt/provider convenience" or social reasons only. ("I AM CONCERNED ABOUT ", for example.) Thanks! CK
[2017-03-12] MEDS ORDERED: EPOETIN ALFA INJ 20000 UNIT/1 ML VIAL (RENAL) SUBCUT ONE (17:00)
--- NOTE | 2017-03-12 19:06 | PDOC PROGRESS REPORT ---
Subjective Progress Note for:: 03/12/17 Subjective:: Pt states that she is short of breath laying flat. Pt states that the swelling in her legs has decreased. She was requesting for breathing treatments due to feeling short of breath when laying flat. Reason For Visit: DIASTOLIC CHF, PULMONARY VASCULAR CONGESTION, Physical Exam Vital Signs: Temp Pulse Resp BP Pulse Ox 97.8 F 83 20 144/85 H 99 03/12/17 15:22 03/12/17 15:22 03/12/17 15:22 03/12/17 15:22 03/12/17 15:22 General appearance: PRESENT: no acute distress, morbidly obese, well-developed, well-nourished Head exam: PRESENT: atraumatic, normocephalic Eye exam: PRESENT: conjunctiva pink, EOMI. ABSENT: scleral icterus Ear exam: PRESENT: normal external ear exam Mouth exam: PRESENT: moist, tongue midline Neck exam: ABSENT: carotid bruit, JVD, lymphadenopathy, thyromegaly Respiratory exam: PRESENT: other - Diminished at bases bilaterally, good breath sounds heard in upper lobes Cardiovascular exam: PRESENT: RRR. ABSENT: diastolic murmur, rubs, systolic murmur Pulses: PRESENT: normal dorsalis pedis pul Vascular exam: PRESENT: normal capillary refill GI/Abdominal exam: PRESENT: normal bowel sounds, soft. ABSENT: distended, guarding, mass, organolmegaly, rebound, tenderness Rectal exam: PRESENT: deferred Extremities exam: PRESENT: full ROM. ABSENT: calf tenderness, clubbing, pedal edema Neurological exam: PRESENT: alert, awake, oriented to person, oriented to place , oriented to time, oriented to situation, CN II-XII grossly intact. ABSENT: motor sensory deficit Psychiatric exam: PRESENT: appropriate affect, normal mood. ABSENT: homicidal ideation, suicidal ideation Skin exam: PRESENT: dry, intact, warm. ABSENT: cyanosis, rash Results Impressions: Chest X-Ray 03/11/17 05:05 IMPRESSION: No acute cardiopulmonary findings. Assessment & Plan - Diagnosis (1) Acute congestive heart failure Qualifiers: Congestive heart failure type: diastolic Qualified Code(s): I50.31 - Acute diastolic (congestive) heart failure Is this a current diagnosis for this admission?: Yes Plan: Patient will continue with peritoneal dialysis per Dr. Moran's orders. Patient complaining of shortness of breath laying flat. (2) Pulmonary vascular congestion Is this a current diagnosis for this admission?: Yes Plan: Patient will continue with peritoneal dialysis. Patient still short of breath laying flat. Will check chest x-ray in a.m. (3) Diabetes mellitus type 2 in obese Is this a current diagnosis for this admission?: Yes Plan: Continue sliding scale insulin (4) ESRD (end stage renal disease) on dialysis Is this a current diagnosis for this admission?: Yes Plan: Patient undergone peritoneal dialysis (5) GERD (gastroesophageal reflux disease) Qualifiers: Esophagitis presence: esophagitis presence not specified Qualified Code(s) : K21.9 - Gastro-esophageal reflux disease without esophagitis Is this a current diagnosis for this admission?: Yes Plan: Lansoprazole. - Time Time Spent with patient: 15-24 minutes
--- NOTE | 2017-03-12 19:43 | RADIOLOGY REPORT (SQ) ---
EXAM DESCRIPTION: CHEST PA/LAT COMPLETED DATE/TIME: 03/12/2017 7:35 pm REASON FOR STUDY: Shortness of breath COMPARISON: 09/29/2016. EXAM PARAMETERS: NUMBER OF VIEWS: two views TECHNIQUE: Digital Frontal and Lateral radiographic views of the chest acquired. RADIATION DOSE: NA LIMITATIONS: none FINDINGS: LUNGS AND PLEURA: No opacities, masses or pneumothorax. No pleural effusion. MEDIASTINUM AND HILAR STRUCTURES: No masses or contour abnormalities. HEART AND VASCULAR STRUCTURES: Heart normal size. No evidence for failure. BONES: No acute findings. Degenerative changes in the spine. HARDWARE: None in the chest. OTHER: No other significant finding. IMPRESSION: NO SIGNIFICANT RADIOGRAPHIC FINDING IN THE CHEST. TECHNICAL DOCUMENTATION: JOB ID: [id number] [employer]- All Rights Reserved
[2017-03-13] MEDS: LANSOPRAZOLE 15 MG TAB.RAP.DR PO SCH (05:14)
[2017-03-13] MEDS: HYDRALAZINE HCL 50 MG TABLET PO SCH ×2 (05:14→14:22)
[2017-03-13] MEDS: CARVEDILOL 12.5 MG TABLET PO SCH (05:14)
[2017-03-13] MEDS: PREGABALIN 75 MG CAPSULE PO SCH (05:14)
[2017-03-13 06:22] LABS: ABSOLUTE BASOPHILS # (AUTO) 0.1 10^3/uL (0.0-0.2); ABSOLUTE EOSINOPHILS # (AUTO) 0.4 10^3/uL (0.0-0.6); ABSOLUTE LYMPHOCYTES (AUTO) 2.4 10^3/uL (0.5-4.7); ABSOLUTE MONOCYTES (AUTO) 1.1 10^3/uL (0.1-1.4); ABSOLUTE NEUT (AUTO) 5.1 10^3/uL (1.7-8.2); BASOPHILS % (AUTO) 1.2 % (0-2); EOSINOPHILS % (AUTO) 4.5 % (0-6); HEMATOCRIT 28.9 % (36.0-47.0); HEMOGLOBIN 9.2 g/dL (12.0-15.5); LYMPHOCYTES % (AUTO) 26.5 % (13-45); MEAN CORPUSCULAR HEMOGLOBIN 25.6 pg (27.0-33.4); MEAN CORPUSCULAR HGB CONC 31.8 g/dL (32.0-36.0); MEAN CORPUSCULAR VOLUME 80 fl (80-97); MONOCYTES % (AUTO) 11.6 % (3-13); PLATELET COUNT 165 10^3/uL (150-450); RED BLOOD COUNT 3.59 10^6/uL (3.72-5.28); RED CELL DISTRIBUTION WIDTH 19.7 % (11.5-14.0); SEGMENTED NEUTROPHILS % (AUTO) 56.2 % (42-78); TOTAL CELLS COUNTED % (AUTO) 100 %; WHITE BLOOD COUNT 9.1 10^3/uL (4.0-10.5)
[2017-03-13 06:43] LABS: BLOOD UREA NITROGEN 78 mg/dL (7-20); CALCIUM 8.6 mg/dL (8.4-10.2); CARBON DIOXIDE 23 mmol/L (22-30); GLUCOSE 192 mg/dL (75-110)
[2017-03-13 06:57] LABS: ANION GAP 19 (5-19); CHLORIDE 97 mmol/L (98-107); SODIUM 138.9 mmol/L (137-145)
[2017-03-13] MEDS: INSULIN LISPRO 100 UNIT/ML 3 ML VIAL SUBCUT PRN (08:17)
[2017-03-13] MEDS: SEVELAMER HCL 400 MG TABLET PO SCH ×2 (08:18→14:22)
[2017-03-13] MEDS: CALCIUM ACETATE 667 MG CAPSULE PO SCH ×2 (08:18→14:21)
[2017-03-13] MEDS: AMLODIPINE BESYLATE 5 MG TABLET PO SCH (10:31)
[2017-03-13] MEDS: CALCITRIOL 0.25 MCG CAPSULE PO SCH (10:32)
[2017-03-13] MEDS: FOLIC ACID/VITAMIN B COMP W-C CAPSULE PO SCH (10:32)
[2017-03-13] MEDS: ASPIRIN 81 MG TABLET, ENT COATED PO SCH (10:33)
[2017-03-13] MEDS: CINACALCET HCL 30 MG TABLET PO SCH (10:33)
[2017-03-13] MEDS: POTASSIUM CHLORIDE 10 MEQ TABLET.SA PO SCH (10:34)
--- NOTE | 2017-03-13 11:59 | PDOC DISCHARGE SUMMARY ---
General - Admit/Disc Date/PCP Admission Date/Primary Care Provider: 03/12/17 16:17 JULIA GOMEZ PA-C Discharge Date: 03/13/17 - Discharge Diagnosis (1) Acute congestive heart failure Is this a current diagnosis for this admission?: Yes Summary: Regular to acute diastolic congestive heart failure. Patient has received additional peritoneal dialysis every 4 hours. She initially had difficulty with breathing when laying flat which has resolved. (2) Pulmonary vascular congestion Is this a current diagnosis for this admission?: Yes Summary: She was placed on peritoneal dialysis every 4 hours and has diuresed well. Patient's breathing has greatly improved. Patient's chest x-ray does not demonstrate any evidence of pulmonary edema. (3) Diabetes mellitus type 2 in obese Is this a current diagnosis for this admission?: Yes Summary: Continue current treatment plan. (4) ESRD (end stage renal disease) on dialysis Is this a current diagnosis for this admission?: Yes Summary: Continue peritoneal dialysis - Additional Information Resuscitation Status: Full Code Discharge Activity: Activity As Tolerated, Balance Activity w/Rest, Weigh Daily Prescriptions: Sevelamer HCl [Renagel 400 mg Tablet] 3,200 mg PO MEALS #90 tablet Home Medications: Amlodipine Besylate [Norvasc 5 mg Tablet] 5 mg PO DAILY 03/11/17 B Complex W-C No.20/Folic Acid [Boris Caps Softgel] 1 mg PO DAILY 03/11/17 Calcitriol [Rocaltrol 0.25 mcg Capsule] 0.5 cap PO DAILY 03/11/17 Carvedilol [Coreg 25 mg Tablet] 25 mg PO Q12 03/11/17 Cinacalcet HCl [Sensipar 60 mg Tablet] 60 mg PO DAILY 03/11/17 Furosemide [Lasix 40 mg Tablet] 40 mg PO BID 03/11/17 Hydralazine HCl 100 mg PO Q8 03/11/17 Insulin Glargine,Hum.rec.anlog [Toulucila Monteiro] 16 unit SQ QHS 03/11/17 Insulin Lispro [Humalog Kwikpen U-100] 5 unit SQ MEALS 03/11/17 Pregabalin [Lyrica 75 mg Capsule] 75 mg PO Q12 03/11/17 Sevelamer Carbonate [Renvela] 1,600 mg PO ASDIR PRN 03/11/17 Sevelamer Carbonate [Renvela] 3,200 mg PO AC 03/11/17 Gentamicin Sulfate [Garamycin 0.1% Cream 15 gm] 1 applic TP DAILY tube Sevelamer HCl [Renagel 400 mg Tablet] 3,200 mg PO MEALS #90 tablet 03/13/17 History of Present Illness Patient complains of: Shortness of breath History of Present Illness: JASPREET STAFFORD is a 51 year old female sent to the hospital with complaint of shortness of breath. Patient does peritoneal dialysis at home however her breathing has continued to worsen. Patient was admitted to the hospital where she was diagnosed with acute diastolic congestive heart failure. Hospital Course Hospital Course: Patient is a 51-year-old female that was admitted to our facility with diagnosis of acute diastolic congestive heart failure. Patient has been doing peritoneal dialysis at home however she has developed shortness of breath with lying flat and with exertion. Patient was seen by nephrology and they recommended doing peritoneal dialysis every 4 hours. Patient has diuresed well during hospitalization and shortness of breath has resolved. Patient is able to lay flat without any complaints of difficulty breathing and ambulate without problems breathing. Physical Exam Vital Signs: Temp Pulse Resp BP Pulse Ox 98.0 F 80 20 104/65 99 03/13/17 07:35 03/13/17 08:00 03/13/17 07:35 03/13/17 08:00 03/13/17 07:35 Intake & Output 03/12/17 03/13/17 03/14/17 06:59 06:59 06:59 Intake Total 55758 2500 Output Total 07945 2850 Balance -3200 -350 Weight 175.7 kg 173.7 kg General appearance: PRESENT: no acute distress, well-developed, well-nourished Head exam: PRESENT: atraumatic, normocephalic Eye exam: PRESENT: conjunctiva pink, EOMI. ABSENT: scleral icterus Ear exam: PRESENT: normal external ear exam Mouth exam: PRESENT: moist, tongue midline Neck exam: ABSENT: carotid bruit, JVD, lymphadenopathy, thyromegaly Respiratory exam: PRESENT: clear to auscultation shira. ABSENT: rales, rhonchi, wheezes Cardiovascular exam: PRESENT: RRR. ABSENT: diastolic murmur, rubs, systolic murmur Vascular exam: PRESENT: normal capillary refill GI/Abdominal exam: PRESENT: normal bowel sounds, soft. ABSENT: distended, guarding, mass, organolmegaly, rebound, tenderness Rectal exam: PRESENT: deferred Extremities exam: PRESENT: full ROM. ABSENT: calf tenderness, clubbing, pedal edema Neurological exam: PRESENT: alert, awake, oriented to person, oriented to place , oriented to time, oriented to situation, CN II-XII grossly intact. ABSENT: motor sensory deficit Psychiatric exam: PRESENT: appropriate affect, normal mood. ABSENT: homicidal ideation, suicidal ideation Skin exam: PRESENT: dry, intact, warm. ABSENT: cyanosis, rash Results Laboratory Results: 03/13/17 05:18 03/13/17 05:18 03/13/17 03/13/17 05:18 05:18 WBC 9.1 RBC 3.59 L Hgb 9.2 L Hct 28.9 L MCV 80 MCH 25.6 L MCHC 31.8 L RDW 19.7 H Plt Count 165 Seg Neutrophils % 56.2 Lymphocytes % 26.5 Monocytes % 11.6 Eosinophils % 4.5 Basophils % 1.2 Absolute Neutrophils 5.1 Absolute Lymphocytes 2.4 Absolute Monocytes 1.1 Absolute Eosinophils 0.4 Absolute Basophils 0.1 Sodium 138.9 Potassium 4.0 Chloride 97 L Carbon Dioxide 23 Anion Gap 19 BUN 78 H Creatinine 17.92 H Est GFR ( Amer) 3 L Est GFR (Non-Af Amer) 2 L Glucose 192 H Calcium 8.6 Impressions: Chest X-Ray 03/12/17 19:15 IMPRESSION: NO SIGNIFICANT RADIOGRAPHIC FINDING IN THE CHEST. Plan Time Spent: Greater than 30 Minutes
[2017-03-13] MEDS: GENTAMICIN SULFATE 0.1% CREAM 15 GM TP SCH (14:25)
[2017-03-13 14:41] VITALS: BP 133/81
== END 2017-03-13 15:00 | disposition home or self-care (01) | DRG 291 ==
LOC: ER 04:53 → EH 09:40 → INTOOBSV 09:40 → 4N 03-12 01:48 → OBSVTOIN 03-12 16:17
PROVIDERS: ADMIT Internal Medicine; ATTEND Internal Medicine
PROC: 3E0F73Z Introduction of Anti-inflammatory into Respiratory Tract, Via Natural or Artificial Opening (ICD-10-PCS; principal; 2017-03-12)
DX: I13.2 Hypertensive heart and chronic kidney disease with heart failure and with stage 5 chronic kidney disease, or end stage renal disease (principal); I50.31 Acute diastolic (congestive) heart failure; N18.6 End stage renal disease; Z68.43 Body mass index [BMI] 50.0-59.9, adult; N25.81 Secondary hyperparathyroidism of renal origin; E66.01 Morbid (severe) obesity due to excess calories; R09.89 Other specified symptoms and signs involving the circulatory and respiratory systems; E10.22 Type 1 diabetes mellitus with diabetic chronic kidney disease; E78.00 Pure hypercholesterolemia, unspecified; G47.30 Sleep apnea, unspecified; N25.0 Renal osteodystrophy; K21.9 Gastro-esophageal reflux disease without esophagitis; F32.9 Major depressive disorder, single episode, unspecified; D63.1 Anemia in chronic kidney disease; E10.40 Type 1 diabetes mellitus with diabetic neuropathy, unspecified; J45.909 Unspecified asthma, uncomplicated; F17.210 Nicotine dependence, cigarettes, uncomplicated; Z60.2 Problems related to living alone; Z99.2 Dependence on renal dialysis; Z79.899 Other long term (current) drug therapy; Z79.4 Long term (current) use of insulin; Z88.6 Allergy status to analgesic agent; Z88.8 Allergy status to other drugs, medicaments and biological substances; Z90.710 Acquired absence of both cervix and uterus; Z82.49 Family history of ischemic heart disease and other diseases of the circulatory system; Z84.1 Family history of disorders of kidney and ureter
CPT/HCPCS: 36415; 71045; 71046; 80048; 80053; 80061; 82550; 82553; 82962; 83036; 83735; 83880; 84100; 84443; 84484; 85025; 85027; 90945; 93005; 93010; 94640; 96374; 99285; J1815; J1940; J3490; J7620; Q4081

== ENCOUNTER → 2017-04-23 | Outpatient (CLI) | payer MEDICARE, MEDICAID ==
[2017-04-23 13:42] LABS: ABSOLUTE BASOPHILS # (AUTO) 0.1 10^3/uL (0.0-0.2); ABSOLUTE EOSINOPHILS # (AUTO) 0.4 10^3/uL (0.0-0.6); ABSOLUTE LYMPHOCYTES (AUTO) 1.4 10^3/uL (0.5-4.7); ABSOLUTE MONOCYTES (AUTO) 1.1 10^3/uL (0.1-1.4); ABSOLUTE NEUT (AUTO) 7.6 10^3/uL (1.7-8.2); BASOPHILS % (AUTO) 0.8 % (0-2); EOSINOPHILS % (AUTO) 3.4 % (0-6); HEMATOCRIT 34.1 % (36.0-47.0); HEMOGLOBIN 10.8 g/dL (12.0-15.5); MEAN CORPUSCULAR HEMOGLOBIN 25.9 pg (27.0-33.4); MEAN CORPUSCULAR HGB CONC 31.7 g/dL (32.0-36.0); MEAN CORPUSCULAR VOLUME 82 fl (80-97); MONOCYTES % (AUTO) 10.3 % (3-13); PLATELET COUNT 197 10^3/uL (150-450); RED BLOOD COUNT 4.19 10^6/uL (3.72-5.28); RED CELL DISTRIBUTION WIDTH 21.4 % (11.5-14.0); SEGMENTED NEUTROPHILS % (AUTO) 72.5 % (42-78); TOTAL CELLS COUNTED % (AUTO) 100 %; WHITE BLOOD COUNT 10.5 10^3/uL (4.0-10.5)
[2017-04-23 14:00] LABS: ALANINE AMINOTRANSFERASE 29 U/L (9-52); ALKALINE PHOSPHATASE 107 U/L (38-126); ASPARTATE AMINO TRANSFERASE 12 U/L (14-36); BILIRUBIN,DIRECT 0.6 mg/dL (0.0-0.4); BILIRUBIN,TOTAL 0.6 mg/dL (0.2-1.3); BLOOD UREA NITROGEN 85 mg/dL (7-20); CALCIUM 8.6 mg/dL (8.4-10.2); GLUCOSE 159 mg/dL (75-110); PHOSPHORUS 8.1 mg/dL (2.5-4.5); POTASSIUM 4.1 mmol/L (3.6-5.0); TOTAL PROTEIN 6.8 g/dL (6.3-8.2)
[2017-04-23 14:04] LABS: CARBON DIOXIDE 23 mmol/L (22-30); CHLORIDE 96 mmol/L (98-107); SODIUM 140.2 mmol/L (137-145)
[2017-04-23 14:09] LABS: ANION GAP 21 (5-19)
== END ==
LOC: OD 12:35
PROVIDERS: ATTEND Nurse Practitioner Family
DX: E11.22 Type 2 diabetes mellitus with diabetic chronic kidney disease (principal); N18.6 End stage renal disease; R68.89 Other general symptoms and signs; Z79.4 Long term (current) use of insulin
CPT/HCPCS: 36415; 80053; 83036; 83735; 84100; 85025; 87040

== ENCOUNTER 2017-04-25 07:31 | Emergency (ER) | payer MEDICARE, MEDICAID ==
[2017-04-25] MEDS ORDERED: METHYLPREDNISOLONE INJ 125 MG/2 ML SDV IM ONE (08:17)
[2017-04-25] MEDS ORDERED: IPRATROPIUM/ALBUTEROL 0.5-2.5 MG/3 ML AMPUL NEB ONE (08:17)
[2017-04-25] MEDS ORDERED: ONDANSETRON 4 MG TAB.RAPDIS PO ONE (08:18)
[2017-04-25] MEDS ORDERED: LOSARTAN POTASSIUM 50 MG TABLET PO ONE (08:37)
--- NOTE | 2017-04-25 08:44 | ER Document Report ---
ED General - General Chief Complaint: Flu Symptoms Stated Complaint: FLU SYMPTOMS Mode of Arrival: Ambulatory Information source: Patient TRAVEL OUTSIDE OF THE [place] IN LAST 30 DAYS: No - HPI Notes: 51-year-old female with a past medical history of end-stage renal disease, CHF, nightly peritoneal dialysis, hypertension, asthma presents today with complaints of cough, nausea and vomiting and body aches. Patient has not been taking Tylenol as directed for fevers. Patient was diagnosed with the flu 2 days ago her primary care office, she sees primary bundle. Was started on Tamiflu. Patient states that the cough has become progressively worse. Reports decreased appetite, is drinking. Patient is on peritoneal dialysis. Denies chest pain,palpitations, shortness of breath, dyspnea, diarrhea, abdominal pain, hematuria,blurred vision, double vision, loss of vision, speech changes, LH, dizziness, syncope, headaches, wheezing, ST, URI, neck pain, weakness, bowel or bladder dysfunction, saddle anesthesia, numbness or tingling in bilateral upper or lower extremities equally, muscle paralysis, weakness in bilateral upper or lower extremities equally or rash. Denies IV drug use. - Related Data Allergies/Adverse Reactions: oxycodone HCl [From Percocet] Allergy (Verified 01/02/17 07:34) Nausea prochlorperazine edisylate [From Compazine] Allergy (Verified 01/02/17 07:34) Hallucinations prochlorperazine maleate [From Compazine] Allergy (Verified 01/02/17 07:34) Hallucinations propoxyphene napsylate [From Darvocet-N 100] Allergy (Verified 01/02/17 07:34) Hallucinations Past Medical History - General Information source: Patient - Social History Smoking Status: Never Smoker Frequency of alcohol use: None Drug Abuse: None Family History: Reviewed & Not Pertinent, DM, Hypertension Patient has suicidal ideation: No Patient has homicidal ideation: No - Past Medical History Cardiac Medical History: Reports: Hx Congestive Heart Failure, Hx Hypercholesterolemia, Hx Hypertension Denies: Hx Heart Attack Pulmonary Medical History: Reports: Hx Asthma, Hx Pneumonia, Hx Sleep Apnea Denies: Hx Bronchitis, Hx COPD Neurological Medical History: Denies: Hx Seizures Endocrine Medical History: Reports: Hx Diabetes Mellitus Type 1, Hx Diabetes Mellitus Type 2 Renal/ Medical History: Reports: Hx End Stage Renal Disease - Peritoneal dialysis, Hx Kidney Stones, Hx Peritoneal Dialysis GI Medical History: Reports: Hx Gastroesophageal Reflux Disease Musculoskeltal Medical History: Denies Hx Arthritis Psychiatric Medical History: Reports: Hx Depression Past Surgical History: Reports: Hx Abdominal Surgery - peritoneal dialysis fistula, Hx Hysterectomy, Hx Tubal Ligation, Other - Peritoneal dialysis catheter placement - Immunizations Immunizations up to date: No Hx Diphtheria, Pertussis, Tetanus Vaccination: Yes - 2013 Hx Pneumococcal Vaccination: 11/19/11 Review of Systems - Review of Systems Notes: REVIEW OF SYSTEMS: CONSTITUTIONAL : reports fevers and chills, or sweats. Denies recent illness. EENT: Denies eye, ear, throat, or mouth pain or symptoms. Denies nasal or sinus congestion or discharge. Denies throat, tongue, or mouth swelling or difficulty swallowing. CARDIOVASCULAR: Denies chest pain. Denies palpitations or racing or irregular heart beat. Denies ankle edema. RESPIRATORY: reports cough, cold, or chest congestion. Denies shortness of breath, difficulty breathing, or wheezing. GASTROINTESTINAL: Denies abdominal pain or distention. Denies nausea, vomiting , or diarrhea. Denies blood in vomitus, stools, or per rectum. Denies black, tarry stools. Denies constipation. GENITOURINARY: Denies difficulty urinating, painful urination, burning, frequency, blood in urine, or discharge. FEMALE GENITOURINARY: Denies vaginal bleeding, heavy or abnormal periods, irregular periods. Denies vaginal discharge or odor. MUSCULOSKELETAL: Denies back or neck pain or stiffness. Denies joint pain or swelling. SKIN: Denies rash, lesions or sores. HEMATOLOGIC : Denies easy bruising or bleeding. LYMPHATIC: Denies swollen, enlarged glands. NEUROLOGICAL: Denies confusion or altered mental status. Denies passing out or loss of consciousness. Denies dizziness or lightheadedness. Denies headache. Denies weakness or paralysis or loss of use of either side. Denies problems with gait or speech. Denies sensory loss, numbness, or tingling. Denies seizures. PSYCHIATRIC: Denies anxiety or stress. Denies depression, suicidal ideation, or homicidal ideation. ALL OTHER SYSTEMS REVIEWED AND NEGATIVE. REVIEW OF SYSTEMS: CONSTITUTIONAL : Denies fever, chills, or sweats. Denies recent illness. EENT: Denies eye, ear, throat, or mouth pain or symptoms. Denies nasal or sinus congestion or discharge. Denies throat, tongue, or mouth swelling or difficulty swallowing. CARDIOVASCULAR: Denies chest pain. Denies palpitations or racing or irregular heart beat. Denies ankle edema. RESPIRATORY: Denies cough, cold, or chest congestion. Denies shortness of breath, difficulty breathing, or wheezing. GASTROINTESTINAL: Denies abdominal pain or distention. Denies nausea, vomiting , or diarrhea. Denies blood in vomitus, stools, or per rectum. Denies black, tarry stools. Denies constipation. GENITOURINARY: Denies difficulty urinating, painful urination, burning, frequency, blood in urine, or discharge. FEMALE GENITOURINARY: Denies vaginal bleeding, heavy or abnormal periods, irregular periods. Denies vaginal discharge or odor. MUSCULOSKELETAL: Denies back or neck pain or stiffness. Denies joint pain or swelling. SKIN: Denies rash, lesions or sores. HEMATOLOGIC : Denies easy bruising or bleeding. LYMPHATIC: Denies swollen, enlarged glands. NEUROLOGICAL: Denies confusion or altered mental status. Denies passing out or loss of consciousness. Denies dizziness or lightheadedness. Denies headache. Denies weakness or paralysis or loss of use of either side. Denies problems with gait or speech. Denies sensory loss, numbness, or tingling. Denies seizures. PSYCHIATRIC: Denies anxiety or stress. Denies depression, suicidal ideation, or homicidal ideation. ALL OTHER SYSTEMS REVIEWED AND NEGATIVE. PHYSICAL EXAMINATION: GENERAL: Well-appearing, well-nourished and in no acute distress. HEAD: Atraumatic, normocephalic. EYES: Pupils equal round and reactive to light, extraocular movements intact, conjunctiva are normal. ENT: TM intact with bilateral serous effusion, no erythema. Nares boggy bilaterally, oropharynx with erythema without exudates. Moist mucous membranes. NECK: Normal range of motion, supple without lymphadenopathy LUNGS: Decreased breath sounds in bilateral lower lobes, clear to auscultation in all lobes after breathing treatment. HEART: Regular rate and rhythm without murmurs ABDOMEN: Soft, nontender, nondistended abdomen. No guarding, no rebound. No masses appreciated. Peritoneal cath site. Intact without any signs of infection. Female : deferred Musculoskeletal: Normal range of motion, no pitting or edema. No cyanosis. NEUROLOGICAL: Cranial nerves grossly intact. Normal speech, normal gait. Normal sensory, motor exams PSYCH: Normal mood, normal affect. SKIN: Warm, Dry, normal turgor, no rashes or lesions noted. Physical Exam - Vital signs Vitals: Temp Pulse Resp BP Pulse Ox 100.1 F 98 18 188/114 H 92 04/25/17 07:36 03 07:36 04/25/17 07:36 04/25/17 07:36 04/25/17 07:36 Course - Re-evaluation Re-evalutation: 04/25/17 10:32 Discussed the results of the radiology as well as the diagnosis at great length. Chest x-ray was negative for any pneumonia or acute findings per radiology. Patient has been taking Tylenol as directed so she does have low- grade fever, patient was getting a breathing treatment which did clear her lungs , pulse ox ranged from 92% to 96%. Patient was given 50 mg of losartan, patient did not take her blood pressure medication today. Patient's blood pressure did decrease. Patient states overall she feels much better. Discussed with patient that if she has any continuing nausea vomiting while taking Prandin as well as persistent fevers, chest pain,palpitations,shortness of breath, dyspnea, nausea, vomiting, diarrhea, abdominal pain, hematuria, blurred vision, double vision, loss of vision, speech changes, LH, dizziness, syncope, headaches, wheezing, ST, URI, neck pain, weakness, bowel or bladder dysfunction, saddle anesthesia, numbness or tingling in bilateral upper or lower extremities equally, muscle paralysis, weakness in bilateral upper or lower extremities equally or rash to return to ER [facility]. Discussed the need to return to the ER for any new or worsening sx. Patient understands to take the Rx as directed. The patient to take Tylenol as directed. All questions answered. Patient comfortable with the decision to go home. - Vital Signs Vital signs: Temp Pulse Resp BP Pulse Ox 100.1 F 98 18 188/114 H 92 04/25/17 07:36 04/25/17 07:36 04/25/17 07:36 04/25/17 07:36 04/25/17 07:36 Discharge - Discharge Clinical Impression: Flu syndrome Nausea and vomiting Qualifiers: Vomiting type: unspecified Vomiting Intractability: intractable Qualified Code( s): R11.2 - Nausea with vomiting, unspecified Condition: Good Disposition: HOME, SELF-CARE Instructions: Acetaminophen, Antinausea Medication ([facility]), Influenza ([facility]) 2008- 2009, Vomiting ([facility]) Additional Instructions: INFLUENZA: The physician feels that you have influenza -- the "flu". Influenza is an infection caused by a virus. Symptoms include generalized aching, fever, headache, dry cough, and fatigue. Some patients with the flu also have nausea, vomiting, and diarrhea. The fever and aches usually last two to four days, with the cough persisting another one to two weeks. Treatment of the flu, for the most part, is simply treatment of symptoms. Rest, drink plenty of fluids, and use acetaminophen for fever and aches. Do not take aspirin. There is an anti-viral medication, called Tamiflu, which may help in "type A" flu, but it's not helpful in every case of flu, and only works if started within the first 24 - 48 hours of the start of symptoms. The physician will determine whether this medication can help you. To prevent spread of the virus, use good handwashing. Shared toys should be cleaned with disinfectant. Clean the toilets, sinks, and counter surfaces in bathrooms. Launder clothing in hot water. What are conditions that should receive medical attention? The development of difficulty breathing. Lip color changes to blue or purple. Persistent vomiting and unable to keep liquids down with signs of dehydration such as: dizziness when standing, unable to urinate, or if child/infant is crying no tears are noticed. Is less responsive than normal or becomes confused. How do I decrease the spread of flu in my home? Taking care of the sick patient at home: Keep the sick person in a room separate from the common areas of the house. Keep the "sickroom" door closed. If the person with the flu needs to leave the home, they should cover their nose/mouth when coughing or sneezing and wear a disposable (surgical) mask if available. These masks may be available at your local pharmacy, medical supply and hardware store. If the sick person is in common areas of the house, have them wear a surgical mask. If possible, have the sick person use a separate bathroom that should be cleaned daily with a household disinfectant. If you are the caregiver: Avoid being face to face with the sick adult person as much as possible. Try to stay at least 6 feet away and wear a disposable surgical mask when possible. When holding small children who are sick, place their chin on your shoulder so that they will not cough in your face. Wash your hands after you touch the sick person or handle their tissues and laundry. Wear a mask if you leave home, as you may be infected from taking care of someone and not know it yet. Watch yourself and others in the home for flu symptoms and contact your doctor if symptoms occur. NOTE: Antiviral medication used to reduce the symptoms of the flu works only if taken within 48 hours, and best within 24 hours of symptom onset. Household Cleaning, laundry and waste disposal: Tissues and other disposable items used by the sick person should be thrown away in the trash. Wash your hands after touching these used items. No special waste disposal is required. Keep surfaces (especially bedside tables, bathroom surfaces, and toys for children) clean by wiping them down with a safe household disinfectant according to the directions on the product label. Per Center for Disease Control advice, most people will not receive testing to confirm flu. Also based on the person's health history and onset of symptoms, not all patients will receive prescriptions for antiviral medications. If you have questions related to this, please ask your healthcare provider. For more information, you can call the Centers for Disease Control and Prevention (CDC) Hotline at 9-481-HIHCoupay This line is available in [place] and [employer], 24 hours a day, 7 days a week. Or www.[employer] or www.cdc.gov Flu-Like Illness Home Instructions: The influenza virus infection can cause a wide rage of symptoms, including: Fever, cough, sore throat, body aches, headaches, chills, fatigue, with some patients reporting diarrhea and vomiting Like seasonal influenza A, H1N1 ("swine flu")in humans can vary in severity from mild to severe Severe illness with pneumonia, respiratory failure and even is possible Certain groups might be more likely to develop a severe illness from H1N1 infection. Sometimes bacterial infections may occur at the same time as or after infection with influenza viruses and lead to pneumonias, ear infections, or sinus infections. How Flu Spreads The main way that influenza viruses spread is through respiratory droplets of coughs and sneezes. This can happen when someone with the infection coughs or sneezes and the particles fly through the air and land on other people and surfaces. If the person covers their mouth and nose with their hand but does not wash their hands immediately, then these germs are passed onto the next object that they touch. People with Influenza A or suspected H1N1 (swine flu) who are cared for at home should: Check with their doctor about any special care that they might need if they are or have a health condition such as diabetes, heart disease, asthma or emphysema. Also, limit caregiver to one (if possible). women or those with chronic health conditions should not take care of the flu patient unless necessary. Check with their doctor about whether or not medications are needed that may lessen the symptoms of the flu. Stay at home until 24 hours fever free without the use of fever reducing medication. Get plenty of rest and avoid other healthy people in your home. Drink plenty of clear liquids to keep from getting dehydrated. Take medications like Tylenol (Acetaminophen), Advil/Motrin/Nuprin ( Ibuprofen) or Aleve (Naproxen) for fevers and aches. All children under the age of 18 years of age should not take aspirin or products containing aspirin (e.g. Pepto Bismol), as this can cause a rare serious illness called Stephon Syndrome. Over the counter medications for flu and colds may help, but it is very important to follow the package directions. Remember that the medicine may help the symptoms, but it will not help prevent others from getting sick if they are around you. Cover coughs and sneezes using your bent arm. Clean hands with soap and water or an alcohol-based hand rub often, especially after using tissues to cough or sneeze. Encourage hand washing frequently for all people living in the home! The sick person should not have visitors other than caregivers. Encourage concerned loved ones to call instead of visit. Avoid close contact with others-do not go to work or school while sick. USE OF ACETAMINOPHEN (Tylenol): Acetaminophen may be taken for pain relief or fever control. It's much safer than aspirin, offering a wider range of "safe" dosages. It is safe during . Some brand names are Tylenol, Panadol, Datril, Anacin 3, Tempra, and Liquiprin. Acetaminophen can be repeated every four hours. The following are maximum recommended dosages: FOLLOW-UP CARE: If you have been referred to a physician for follow-up care, call the physician s office for an appointment as you were instructed or within the next two days. If you experience worsening or a significant change in your symptoms, notify the physician immediately or return to the Emergency Department at any time for re-evaluation. Follow-up with primary care provider tomorrow. Take Zofran as directed. Take Tylenol every 4-6 hours as needed for fevers. Increase oral hydration, advised to purchase Pedialyte and drink throughout the day and then start with chicken broth. Return to the emergency room if you experience but not limited to worsening fevers, chills, chest pain,palpitations, shortness of breath, dyspnea, nausea, vomiting, diarrhea, abdominal pain, hematuria,blurred vision, double vision, loss of vision, speech changes, LH, dizziness, syncope, headaches , wheezing, ST, URI, neck pain, weakness, bowel or bladder dysfunction, saddle anesthesia, numbness or tingling in bilateral upper or lower extremities equally , muscle paralysis, weakness in bilateral upper or lower extremities equally or rash. Denies IV drug use. Prescriptions: Benzonatate [Tessalon Perles 100 mg Capsule] 100 mg PO Q8HP PRN #20 capsule PRN Reason: Ondansetron [Zofran Odt 4 mg Tablet] 1 - 2 tab PO Q4H PRN #15 tab.rapdis PRN Reason: For Nausea/Vomiting Referrals: JULIA GOMEZ PA-C [Primary Care Provider] - Follow up tomorrow
--- NOTE | 2017-04-25 09:31 | RADIOLOGY REPORT (SQ) ---
EXAM DESCRIPTION: CHEST PA/LAT COMPLETED DATE/TIME: 04/25/2017 9:18 am REASON FOR STUDY: sob COMPARISON: 03/12/2017. EXAM PARAMETERS: NUMBER OF VIEWS: two views TECHNIQUE: Digital Frontal and Lateral radiographic views of the chest acquired. RADIATION DOSE: NA LIMITATIONS: none FINDINGS: LUNGS AND PLEURA: Suboptimal inspiration. No opacities, masses or pneumothorax. No pleura l effusion. MEDIASTINUM AND HILAR STRUCTURES: No masses or contour abnormalities. HEART AND VASCULAR STRUCTURES: Mild cardiac enlargement. No evidence for failure. BONES: No acute findings. Degenerative changes in the spine. HARDWARE: None in the chest. OTHER: No other significant finding. IMPRESSION: SUBOPTIMAL INSPIRATION. MILD CARDIAC ENLARGEMENT. NO ACUTE RADIOGRAPHIC FINDING IN THE CHEST. TECHNICAL DOCUMENTATION: JOB ID: [id number] [employer]- All Rights Reserved Reading location - IP/workstation name: [email or web address]
[2017-04-25] MEDS ORDERED: ALBUTEROL SULFATE HFA (90 MCG/PUFF) 8 GM MDI (1 MDI/ER DISP) IH STA (10:09)
[2017-04-25 10:35] VITALS: BP 171/81
== END 2017-04-25 11:01 | disposition home or self-care (01) ==
LOC: ER 07:31
DX: J11.1 Influenza due to unidentified influenza virus with other respiratory manifestations (principal); R11.2 Nausea with vomiting, unspecified; J45.909 Unspecified asthma, uncomplicated; R05 Cough; I12.0 Hypertensive chronic kidney disease with stage 5 chronic kidney disease or end stage renal disease; E11.22 Type 2 diabetes mellitus with diabetic chronic kidney disease; N18.6 End stage renal disease; Z99.2 Dependence on renal dialysis; Z79.899 Other long term (current) drug therapy; Z88.5 Allergy status to narcotic agent; Z88.8 Allergy status to other drugs, medicaments and biological substances
CPT/HCPCS: 94640; 99283; 96372; 71046; A9270 ×3; J2930; J3490; J7620; S0119

== ENCOUNTER 2017-04-29 10:38 | Inpatient (IN) | payer MEDICARE, MEDICAID ==
[2017-04-29] MEDS ORDERED: ALBUTEROL SULFATE 0.083% NEB 2.5 MG/3 ML AMPUL NEB ONE (11:15)
--- NOTE | 2017-04-29 11:20 | ER Document Report ---
ED Respiratory Problem - General Chief Complaint: Respiratory Distress Stated Complaint: RESPIRATORY DISTRESS Time Seen by Provider: 04/29/17 11:13 Notes: Patient says she began feeling ill about 1 week ago. Was seen last Saturday, 6 days ago, by her primary care provider who diagnosed her with the flu. She was given Tamiflu which she has taken and completed. She was seen here in this emergency department on and told that she had some wheezes and was given a shot of steroids and some cough medication Perls, and an inhaler. She is not improving and went to see her primary care this morning and was told she sounds like she has pneumonia and to come to the emergency department. Patient says she has had a cough all night long and unable to sleep. Thinks she has had some fever and has noted chills. She does not have a history of any lung conditions. Has had pneumonia once in her lifetime. Her cough is productive of brown sputum. No blood seen. No nausea or vomiting or diarrhea. PMH: IDDM, hypertension, BTL, CHF. Patient is on home peritoneal dialysis. TRAVEL OUTSIDE OF THE [place] IN LAST 30 DAYS: No - Related Data Allergies/Adverse Reactions: oxycodone HCl [From Percocet] Allergy (Verified 01/02/17 07:34) Nausea prochlorperazine edisylate [From Compazine] Allergy (Verified 01/02/17 07:34) Hallucinations prochlorperazine maleate [From Compazine] Allergy (Verified 01/02/17 07:34) Hallucinations propoxyphene napsylate [From Darvocet-N 100] Allergy (Verified 01/02/17 07:34) Hallucinations Past Medical History - Social History Smoking Status: Never Smoker Chew tobacco use (# tins/day): No Frequency of alcohol use: None Drug Abuse: None Family History: Reviewed & Not Pertinent, DM, Hypertension Patient has suicidal ideation: No Patient has homicidal ideation: No - Past Medical History Cardiac Medical History: Reports: Hx Congestive Heart Failure, Hx Hypercholesterolemia, Hx Hypertension Denies: Hx Heart Attack Pulmonary Medical History: Reports: Hx Pneumonia, Hx Sleep Apnea Denies: Hx Bronchitis, Hx COPD Neurological Medical History: Denies: Hx Seizures Endocrine Medical History: Reports: Hx Diabetes Mellitus Type 1, Hx Diabetes Mellitus Type 2 Renal/ Medical History: Reports: Hx End Stage Renal Disease - Peritoneal dialysis, Hx Kidney Stones, Hx Peritoneal Dialysis GI Medical History: Reports: Hx Gastroesophageal Reflux Disease Musculoskeltal Medical History: Denies Hx Arthritis Psychiatric Medical History: Reports: Hx Depression Past Surgical History: Reports: Hx Abdominal Surgery - peritoneal dialysis fistula, Hx Hysterectomy, Hx Tubal Ligation, Other - Peritoneal dialysis catheter placement - Immunizations Immunizations up to date: No Hx Diphtheria, Pertussis, Tetanus Vaccination: Yes - 2013 Hx Pneumococcal Vaccination: 11/19/11 Review of Systems - Review of Systems Notes: REVIEW OF SYSTEMS: CONSTITUTIONAL : Denies fever. EENT: Denies eye, ear, nose or mouth or throat pain or other symptoms. CARDIOVASCULAR: Denies chest pain. Denies leg swelling. RESPIRATORY: See HPI. GASTROINTESTINAL: Denies abdominal pain or nausea, vomiting, or diarrhea. GENITOURINARY: Denies difficulty or painful urinating, urinary frequency, blood in urine. MUSCULOSKELETAL: Denies back or neck pain. Denies joint pain or swelling. SKIN: Denies rash or skin lesions. NEUROLOGICAL: Denies LOC or altered mental status. Denies headache. Denies sensory loss or motor deficits. ALL OTHER SYSTEMS REVIEWED AND NEGATIVE. Physical Exam - Vital signs Vitals: Resp Pulse Ox 20 93 04/29/17 10:58 04/29/17 10:58 Interpretation: No: Hypoxic - Notes Notes: PHYSICAL EXAMINATION: GENERAL: Well-appearing, in no acute distress. Very congested sounding. O2 sat mid 90s on room air. HEAD: Atraumatic, normocephalic. EYES: Pupils equal round and reactive to light, extraocular movements intact. ENT: oropharynx clear without exudates. Moist mucous membranes. NECK: Normal range of motion, supple. LUNGS: Scattered rhonchi and wheezes in both lung mathis. Good air exchange, however. HEART: Regular rate and rhythm without murmurs. ABDOMEN: Soft, nontender. No guarding or rebound. No masses. BACK: No tenderness throughout entire back. EXTREMITIES: Normal range of motion without pain. No edema. Negative Homans. NEUROLOGICAL: Normal speech, normal gait. Normal sensory, motor, and reflex exams. Awake, alert, and oriented x3. Cranial nerves normal. PSYCH: Normal mood, normal affect. SKIN: Warm, dry, no rashes. Course - Vital Signs Vital signs: Temp Pulse Resp BP Pulse Ox 15 198/119 H 96 04/29/17 12:27 04/29/17 12:27 04/29/17 12:27 - Laboratory Result Diagrams: 04/29/17 10:07 04/29/17 10:07 Laboratory results interpreted by me: 04/29/17 04/29/17 04/29/17 10:07 10:07 10:07 WBC 21.8 H Hgb 10.0 L Hct 31.9 L MCH 25.1 L MCHC 31.2 L RDW 20.3 H Seg Neuts % (Manual) 79 H Band Neutrophils % 1 L Lymphocytes % (Manual) 10 L Abs Neuts (Manual) 17.4 H Abs Monocytes (Manual) 1.7 H Chloride 94 L Anion Gap 24 H BUN 112 H Creatinine 19.47 H Est GFR ( Amer) 2 L Est GFR (Non-Af Amer) 2 L Glucose 243 H Calcium 10.3 H Direct Bilirubin 0.9 H AST 42 H CK-MB (CK-2) 7.32 H NT-Pro-B Natriuret Pep 64552 H Discharge - Discharge Clinical Impression: Leukocytosis, Peritoneal dialysis status, Congestive heart failure, Upper respiratory infection Condition: Stable Disposition: ADMITTED INPATIENT Admitting Provider: Hospitalist Unit Admitted: Telemetry Referrals: JULIA GOMEZ PA-C [Primary Care Provider] - Follow up as needed
[2017-04-29 11:40] LABS: HEMATOCRIT 31.9 % (36.0-47.0); MEAN CORPUSCULAR HEMOGLOBIN 25.1 pg (27.0-33.4); MEAN CORPUSCULAR HGB CONC 31.2 g/dL (32.0-36.0); MEAN CORPUSCULAR VOLUME 80 fl (80-97); PLATELET COUNT 229 10^3/uL (150-450); RED BLOOD COUNT 3.97 10^6/uL (3.72-5.28); RED CELL DISTRIBUTION WIDTH 20.3 % (11.5-14.0); WHITE BLOOD COUNT 21.8 10^3/uL (4.0-10.5)
[2017-04-29 11:48] LABS: ALANINE AMINOTRANSFERASE 48 U/L (9-52); ALBUMIN 3.7 g/dL (3.5-5.0); ALKALINE PHOSPHATASE 105 U/L (38-126); ASPARTATE AMINO TRANSFERASE 42 U/L (14-36); BILIRUBIN,DIRECT 0.9 mg/dL (0.0-0.4); BILIRUBIN,TOTAL 0.9 mg/dL (0.2-1.3); BLOOD UREA NITROGEN 112 mg/dL (7-20); CALCIUM 10.3 mg/dL (8.4-10.2); GLUCOSE 243 mg/dL (75-110); POTASSIUM 4.5 mmol/L (3.6-5.0); TOTAL PROTEIN 7.4 g/dL (6.3-8.2)
[2017-04-29 11:53] LABS: CARBON DIOXIDE 22 mmol/L (22-30); CHLORIDE 94 mmol/L (98-107)
[2017-04-29 11:59] LABS: ANION GAP 24 (5-19)
[2017-04-29 12:04] LABS: ABSOLUTE LYMPHOCYTES# (MANUAL) 2.2 10^3/uL (0.5-4.7); ABSOLUTE MONOCYTES # (MANUAL) 1.7 10^3/uL (0.1-1.4); ABSOLUTE NEUTROPHILS# (MANUAL) 17.4 10^3/uL (1.7-8.2); BAND NEUTROPHILS % (MANUAL) 1 % (3-5); BASOPHILS % (MANUAL) 0 % (0-2); EOSINOPHILS % (MANUAL) 2 % (0-6); LYMPHOCYTES % (MANUAL) 10 % (13-45); MONOCYTES % (MANUAL) 8 % (3-13); SEGMENTED NEUTROPHILS % (MAN) 79 % (42-78); TOTAL CELLS COUNTED 100
[2017-04-29 12:06] LABS: ANISOCYTOSIS 2+; PLATELET COMMENT ADEQUATE
--- NOTE | 2017-04-29 12:06 | RADIOLOGY REPORT (SQ) ---
EXAM DESCRIPTION: CHEST PA/LAT COMPLETED DATE/TIME: 04/29/2017 11:40 am REASON FOR STUDY: Cough and congestion and fever COMPARISON: 04/25/2017. EXAM PARAMETERS: NUMBER OF VIEWS: two views TECHNIQUE: Digital Frontal and Lateral radiographic views of the chest acquired. RADIATION DOSE: NA LIMITATIONS: none FINDINGS: LUNGS AND PLEURA: Limited lung volumes. No opacities, masses or pneumothorax. No pleural effusion. MEDIASTINUM AND HILAR STRUCTURES: No masses or contour abnormalities. HEART AND VASCULAR STRUCTURES: Stable mild cardiomegaly. There is prominence of the pulmonary vascu lature, may be on the basis of past the vascular congestion, stable finding. BONES: No acute findings. HARDWARE: None in the chest. OTHER: No other significant finding. IMPRESSION: 1 As on the prior examination dated 04/26/2027, mild cardiomegaly and prominence of the pu lmonary vasculature, suggesting vascular congestion. 2. Limited lung volumes. No acute pulmonary consolidation. TECHNICAL DOCUMENTATION: JOB ID: [id number] true[x] Media- All Rights Reserved Reading location - IP/workstation name: [email or web address]
[2017-04-29 12:11] LABS: CREATINE KINASE MB 7.32 ng/mL (<4.55)
[2017-04-29 12:16] LABS: TROPONIN I 0.214 ng/mL
[2017-04-29] MEDS ORDERED: CEFTRIAXONE INJ 1000 MG VIAL IV ONE (13:03)
--- NOTE | 2017-04-29 13:25 | EKG REPORT ---
SEVERITY:- ABNORMAL ECG - SINUS TACHYCARDIA VENTRICULAR PREMATURE COMPLEX LEFT AXIS DEVIATION LEFT VENTRICULAR HYPERTROPHY BORDERLINE PROLONGED QT INTERVAL : Confirmed by: Eduard Bean MD 29-Apr-2017 13:24:21
[2017-04-29] MEDS ORDERED: FUROSEMIDE INJ/PF 20 MG/2 ML SDV IV ONE (15:28)
[2017-04-29] MEDS: CIPROFLOXACIN HCL 0.3% OPH SOLN 2.5 ML OU SCH ×4 (16:14→23:02)
[2017-04-29 16:36] LABS: CREATINE KINASE MB 6.58 ng/mL (<4.55)
[2017-04-29 16:42] LABS: TROPONIN I 0.241 ng/mL
[2017-04-29] MEDS ORDERED: HYDRALAZINE HCL INJ/PF 20 MG/1 ML SDV IV PRN (18:54)
[2017-04-29 19:28] LABS: FLUID SOURCE ABDOMEN; FLUID TYPE PERITONEAL
[2017-04-29 19:29] LABS: FLUID APPEARANCE CLEAR; FLUID COLOR COLORLESS; FLUID VISCOSITY LIQUID
[2017-04-29] MEDS ORDERED: AMLODIPINE BESYLATE 10 MG TABLET PO ONE (20:00)
--- NOTE | 2017-04-29 21:06 | PDOC CONSULTATION ---
Consultation Consult Date: 04/29/17 Attending physician:: ZION JULIEN Consult reason:: I was asked to see this patient to manage her pulmonary congestion and peritoneal dialysis while here in the hospital. History of Present Illness Admission Date/PCP: 04/29/17 14:37 JULIA GOMEZ PA-C History of Present Illness: JASPREET STAFFORD is a 51 year old female known to me with history of end-stage renal disease due to diabetic nephropathy and hypertensive nephrosclerosis on chronic peritoneal dialysis, diabetes mellitus type 2, and hypertension who presented to the emergency room today because of ongoing persistent shortness of breath and cough. Patient has seen her primary care provider last week Saturday presenting with cough, fever of 101, and shortness of breath. She was diagnosed with flu and was given 5 day course of Tamiflu. On she went to the emergency room because of increasing shortness of breath. She said she was given steroids with breathing treatment and was sent home. The day after, on Saturday she feels her ears are getting plugged and congested so she went again to her primary care provider at [facility] and she was recommended to take Coricidin [id number]. Since Saturday patient said she has been coughing nonstop and has been short of breath and has not been able to sleep because she needed to be just sitting up. Finally she presented herself again today in the emergency room with the same symptoms and persistent sinus and chest congestion. Her initial chest x-ray does show some mild pulmonary congestion which is stable but no pulmonary consolidation. She denies any problems with her peritoneal dialysis nor noticing any cloudy PD fluid effluent. She denies any nausea nor vomiting. She has a decreased appetite and has not been eating well. Her eyes are also congested. Past Medical History Cardiac Medical History: Reports: CHF-Diastolic, Hyperlipidemia, Hypertension- primary Pulmonary Medical History: Reports: Asthma, Pneumonia, Sleep Apnea Endocrine Medical History: Reports: Diabetes Mellitus Type 2 Complications of Diabetes: Reports: Nephropathy Renal/ Medical History: Reports: End Stage Renal Disease - Peritoneal dialysis , Hyperphosphatemia, Renal Osteodystropy, Secondary Hyperparathyroidism GI Medical History: Reports: Gastroesophageal Reflux Disease Psychiatric Medical History: Reports: Depression Hematology Medical History: Reports Anemia of Chronic Kidney Disease Past Surgical History Past Surgical History: Reports: Hysterectomy, Tubal Ligation, Other - Peritoneal dialysis catheter placement Social History Lives with: Alone Smoking Status: Never Smoker Frequency of Alcohol Use: None Hx Recreational Drug Use: No Drugs: None Hx Prescription Drug Abuse: No Family History Family History: Chronic Kidney Disease - Father on dialysis, DM - Father, End Stage Renal Disease - Father, Hypertension Parental Family History Reviewed: Yes Children Family History Reviewed: NA Sibling(s) Family History Reviewed.: Yes Medication/Allergy Home Medications: Calcium Acetate [Phoslo 667 mg Capsule] 1,334 mg PO MEALS 04/29/17 Carvedilol [Coreg 25 mg Tablet] 25 mg PO Q12 04/29/17 Hydralazine HCl 100 mg PO Q8 04/29/17 Insulin Glargine,Hum.rec.anlog [Toujeo Solostar] 22 units SQ QHS 04/29/17 Insulin Lispro [Humalog Kwikpen U-100] 5 units SQ MEALS 04/29/17 Polyethylene Glycol 3350 [Miralax Powder 17 gm/Packet] 17 gm PO DAILY 04/29/17 Pregabalin [Lyrica 75 mg Capsule] 75 mg PO Q12 04/29/17 Allergies/Adverse Reactions: oxycodone HCl [From Percocet] Allergy (Verified 01/02/17 07:34) Nausea prochlorperazine edisylate [From Compazine] Allergy (Verified 01/02/17 07:34) Hallucinations prochlorperazine maleate [From Compazine] Allergy (Verified 01/02/17 07:34) Hallucinations propoxyphene napsylate [From Darvocet-N 100] Allergy (Verified 01/02/17 07:34) Hallucinations Review of Systems All systems: reviewed and no additional remarkable complaints except as stated Review of Systems: Constitutional: ABSENT: chills, headache(s), weight gain, weight loss; admits low-grade temperature last week and fatigue Eyes: ABSENT: visual disturbances Ears: ABSENT: hearing changes Cardiovascular: ABSENT: chest pain, orthropnea, palpitations; admits dyspnea on exertion and mild edema Respiratory: ABSENT: Hemoptysis; admits persistent cough and shortness of breath Gastrointestinal: ABSENT: abdominal pain, constipation, diarrhea, hematemesis, hematochezia, nausea, vomiting Genitourinary: ABSENT: dysuria, hematuria Musculoskeletal: ABSENT: joint swelling Integumentary: ABSENT: rash, wounds Neurological: ABSENT: abnormal gait, abnormal speech, confusion, dizziness, focal weakness, numbness, syncope Psychiatric: ABSENT: anxiety, depression Endocrine: ABSENT: cold intolerance, heat intolerance, polydipsia, polyuria Hematologic/Lymphatic: ABSENT: easy bleeding, easy bruising, lymphadenopathy Physical Exam Vital Signs: Temp Pulse Resp BP Pulse Ox 101 H 36 H 233/140 H 100 04/29/17 17:30 04/29/17 19:00 04/29/17 18:10 04/29/17 17:46 Intake & Output 04/28/17 04/29/17 04/30/17 06:59 06:59 06:59 Intake Total 2500 Output Total 3400 Balance -900 Weight 163.293 kg Exam: General appearance: no acute distress, cooperative, well-developed, well- nourished Head exam: PRESENT: atraumatic, normocephalic; appears to be really congested Eye exam: PRESENT: Conjunctiva pale, EOMI, PERRLA. Bilateral conjunctival injection with erythema and some drainage ABSENT: Scleral icterus Mouth exam: PRESENT: moist, neck supple, tongue midline Neck exam: PRESENT: full ROM. ABSENT: carotid bruit, JVD, lymphadenopathy, thyromegaly Respiratory exam: PRESENT: clear to auscultation bilaterally. ABSENT: rales, rhonchi, stridor, wheezes Cardiovascular exam: PRESENT: RRR, +S1, +S2. ABSENT: systolic murmur Pulses: PRESENT: normal radial pulses, normal dorsalis pedis pulses GI/Abdominal exam: PRESENT: normal bowel sounds, soft. ABSENT: guarding, mass, tenderness Rectal exam: deferred Extremities exam: PRESENT: full ROM. She has mild bilateral lower extremity trace pitting edema ABSENT: calf tenderness Musculoskeletal: PRESENT: full ROM. ABSENT: deformity Neurological exam: PRESENT: alert, Awake, Oriented to person, Oriented to place , Oriented to time, reflexes normal, CN II-XII grossly intact. ABSENT: motor sensory deficit Psychiatric exam: PRESENT: appropriate affect, normal mood. ABSENT: homicidal ideation, suicidal ideation Skin exam: PRESENT: intact, dry, warm. ABSENT: rash Results Laboratory Results: 04/29/17 18:26 Fluid Type PERITONEAL Fluid Source ABDOMEN Fluid Color COLORLESS Fluid Appearance CLEAR Fluid Viscosity LIQUID Fluid WBC 1 Fluid RBC 0 04/29/17 04/29/17 15:43 15:43 Creatine Kinase 1012 H CK-MB (CK-2) 6.58 H Troponin I 0.241 Impressions: Chest X-Ray 04/29/17 11:14 IMPRESSION: 1 As on the prior examination dated 04/26/2027, mild cardiomegaly and prominence of the pulmonary vasculature, suggesting vascular congestion. 2. Limited lung volumes. No acute pulmonary consolidation. Assessment & Plan - Diagnosis (1) Acute bronchitis Is this a current diagnosis for this admission?: Yes Plan: Viral versus bacterial infection. Agree with IV ceftriaxone for now. We will give her Tessalon Perles for cough. (2) ESRD (end stage renal disease) on dialysis Is this a current diagnosis for this admission?: Yes Plan: We will continue peritoneal dialysis by doing CAPD since we do not have the cycler machine here. She will do a fill volume of 2.5 L every 4 hours for a total of 6 exchanges in 24 hours. We will use 2.5% solution except if the systolic blood pressure is less than 120 then we need to use 1.5% diagonal solution. Continue daily exit site care. Follow septic technique always. (3) Leukocytosis Is this a current diagnosis for this admission?: Yes (4) Hypertension Qualifiers: Hypertension type: essential hypertension Qualified Code(s): I10 - Essential (primary) hypertension Is this a current diagnosis for this admission?: Yes Plan: Resume blood pressure medications. Ultrafiltration will help. (5) Anemia in chronic kidney disease (CKD) Qualifiers: Chronic kidney disease stage: on chronic dialysis Qualified Code(s): N18.6 - End stage renal disease; D63.1 - Anemia in chronic kidney disease; D63.1 - Anemia in chronic kidney disease; Z99.2 - Dependence on renal dialysis; Z99.2 - Dependence on renal dialysis; Z99.2 - Dependence on renal dialysis; Z99.2 - Dependence on renal dialysis Is this a current diagnosis for this admission?: Yes (6) Diabetes mellitus type 2 in obese Is this a current diagnosis for this admission?: Yes - Notes Notes: Thank you very much for this consultation. - Time Time Spent: 50 to 70 Minutes
[2017-04-29] MEDS: BENZONATATE 100 MG CAPSULE PO SCH (21:45)
[2017-04-29] MEDS ORDERED: (PENDING PHARMACY ID) (Hydralazine Hcl [Hydralazine Hcl] 100 MG) PO SCH (22:00)
[2017-04-29] MEDS ORDERED: DEXTROSE 50%-WATER 25 GM/50 ML DISP.SYRIN IV PRN ×2 (22:02)
[2017-04-29] MEDS ORDERED: DEXTROSE 40% GEL 15 GM TUBE PO PRN ×2 (22:02)
[2017-04-29] MEDS ORDERED: GLUCAGON,HUMAN RECOMB 1 MG INJ IM PRN (22:02)
[2017-04-29] MEDS ORDERED: VANCOMYCIN HCL 1,000 MG in DEXTROSE 5%-WATER 250 ML IV NR (22:15)
--- NOTE | 2017-04-29 22:23 | PDOC H&P ---
History of Present Illness Admission Date/PCP: 04/29/17 14:37 JULIA GOMEZ PA-C Patient complains of: Dyspnea, cannot catch her breath History of Present Illness: This is a 51-year-old woman who has diabetes hypertension and peritoneal dialysis dependent. Reports that about 1 week ago she developed a cough with flulike symptoms and was seen at her doctor's office. She was started on Tamiflu. She did not improve and so the following day she went to the ER for us for upper respiratory tract infection symptoms. She was discharged home after being treated with some antibiotics and steroids. Several days later she went to her doctor because she had a feeling of popping in her ears. It appears that she was treated with antibiotics at that time but do not know that for sure and the patient does not remember. She has been sleeping poorly since then, she did not want to come to the ER over the weekend. Finally, today, she was feeling so poorly with worsening shortness of breath and upper respiratory tract infection symptoms and fatigue that she called a family member who brought her into the ER. She is being admitted to the hospitalist service with volume overload. Evidence of congestive heart failure exacerbation. Bilateral conjunctivitis and possible viral versus bacterial upper respiratory tract infection versus possible early pneumonia. Past Medical History Cardiac Medical History: Reports: Congestive Heart Failure, Hyperlipidema, Hypertension Denies: Myocardial Infarction Pulmonary Medical History: Reports: Asthma, Pneumonia, Sleep Apnea Denies: Bronchitis, Chronic Obstructive Pulmonary Disease (COPD) Neurological Medical History: Denies: Seizures Endocrine Medical History: Reports: Diabetes Mellitus Type 1, Diabetes Mellitus Type 2 Renal/ Medical History: Reports: End Stage Renal Disease - Peritoneal dialysis GI Medical History: Reports: Gastroesophageal Reflux Disease Musculoskeltal Medical History: Denies: Arthritis Psychiatric Medical History: Reports: Depression Hematology: Reports: Anemia Past Surgical History Past Surgical History: Reports: Hysterectomy, Tubal Ligation, Other - Peritoneal dialysis catheter placement Social History Lives with: Alone Smoking Status: Never Smoker Frequency of Alcohol Use: None Hx Recreational Drug Use: No Drugs: None Hx Prescription Drug Abuse: No - Advance Directive Resuscitation Status: Full Code Family History Family History: DM, Hypertension Parental Family History Reviewed: Yes - Father with complications related to diabetes and hypertension, mother Children Family History Reviewed: Yes - Has 2 twin boys that are healthy Sibling(s) Family History Reviewed.: Yes - He reports healthy siblings for the most part Medication/Allergy Home Medications: Calcium Acetate [Phoslo 667 mg Capsule] 1,334 mg PO MEALS 04/29/17 Carvedilol [Coreg 25 mg Tablet] 25 mg PO Q12 04/29/17 Hydralazine HCl 100 mg PO Q8 04/29/17 Insulin Glargine,Hum.rec.anlog [Toujeo Solostar] 22 units SQ QHS 04/29/17 Insulin Lispro [Humalog Kwikpen U-100] 5 units SQ MEALS 04/29/17 Polyethylene Glycol 3350 [Miralax Powder 17 gm/Packet] 17 gm PO DAILY 04/29/17 Pregabalin [Lyrica 75 mg Capsule] 75 mg PO Q12 04/29/17 Allergies/Adverse Reactions: oxycodone HCl [From Percocet] Allergy (Verified 01/02/17 07:34) Nausea prochlorperazine edisylate [From Compazine] Allergy (Verified 01/02/17 07:34) Hallucinations prochlorperazine maleate [From Compazine] Allergy (Verified 01/02/17 07:34) Hallucinations propoxyphene napsylate [From Darvocet-N 100] Allergy (Verified 01/02/17 07:34) Hallucinations Review of Systems Constitutional: PRESENT: anorexia, headache(s), weight gain Eyes: ABSENT: visual disturbances Ears: PRESENT: other - Popping sound in her ears Cardiovascular: PRESENT: dyspnea on exertion, edema, orthropnea. ABSENT: chest pain Respiratory: PRESENT: cough, dyspnea. ABSENT: sputum Gastrointestinal: PRESENT: bloating. ABSENT: abdominal pain, nausea, vomiting Genitourinary: PRESENT: other - Makes very little urine Musculoskeletal: PRESENT: muscle weakness. ABSENT: deformity Integumentary: ABSENT: rash, wounds Neurological: PRESENT: weakness. ABSENT: focal weakness Endocrine: ABSENT: cold intolerance, heat intolerance, polydipsia, polyphagia, polyuria Hematologic/Lymphatic: ABSENT: easy bleeding, easy bruising Physical Exam Vital Signs: Temp Pulse Resp BP Pulse Ox 101 H 21 H 208/120 H 100 04/29/17 17:30 04/29/17 21:36 04/29/17 21:36 04/29/17 17:46 Intake & Output 04/28/17 04/29/17 04/30/17 06:59 06:59 06:59 Intake Total 2500 Output Total 3400 Balance -900 Weight 163.293 kg General appearance: PRESENT: mild distress, morbidly obese Head exam: PRESENT: atraumatic, normocephalic Eye exam: PRESENT: conjunctival injection, EOMI, other - Purulent drainage from both eyes Ear exam: PRESENT: normal external ear exam Mouth exam: PRESENT: moist, neck supple, tongue midline Respiratory exam: PRESENT: decreased breath sounds, rales. ABSENT: rhonchi, unlabored, wheezes Cardiovascular exam: PRESENT: tachycardia. ABSENT: systolic murmur Pulses: PRESENT: normal radial pulses GI/Abdominal exam: PRESENT: hypoactive bowel sounds, soft. ABSENT: distended, tenderness Extremities exam: PRESENT: pedal edema Neurological exam: PRESENT: alert, oriented to person, oriented to place, oriented to time, motor sensory deficit, other - She is tired appearing but she is oriented Psychiatric exam: PRESENT: appropriate affect. ABSENT: anxious Skin exam: PRESENT: dry, mottled, normal color, warm Results Laboratory Results: 04/29/17 18:26 Fluid Type PERITONEAL Fluid Source ABDOMEN Fluid Color COLORLESS Fluid Appearance CLEAR Fluid Viscosity LIQUID Fluid WBC 1 Fluid RBC 0 04/29/17 04/29/17 15:43 15:43 Creatine Kinase 1012 H CK-MB (CK-2) 6.58 H Troponin I 0.241 Impressions: Chest X-Ray 04/29/17 11:14 IMPRESSION: 1 As on the prior examination dated 04/26/2027, mild cardiomegaly and prominence of the pulmonary vasculature, suggesting vascular congestion. 2. Limited lung volumes. No acute pulmonary consolidation. Assessment & Plan - Diagnosis (1) Acute bronchitis Is this a current diagnosis for this admission?: Yes Plan: viral URI vs bronchitis vs. early PNA. Will cover broadly for now due to elevated WBC count and acuity of illness. She is now on cefepime and vancomycin until we have more culture data. To continue tessalon for cough. (2) Leukocytosis Is this a current diagnosis for this admission?: Yes Plan: possibly due to recently administered steroids vs acute infection. Will treat as above with spectrum antibiotics and monitor her white blood cell count. (4) Acute congestive heart failure Qualifiers: Qualified Code(s): I50.31 - Acute diastolic (congestive) heart failure Plan: Patient makes very little urine. Nonetheless we will try Lasix [address] Moran her financial sales assistant is following closely and is working with nursing on aggressive peritoneal dialysis for fluid removal. (5) Diabetes mellitus type 2 in obese Is this a current diagnosis for this admission?: Yes (6) Dyspnea Qualifiers: Dyspnea type: unspecified Qualified Code(s): R06.00 - Dyspnea, unspecified Plan: Secondary to fluid overload and possible pulmonary infection. Treating fluid overload with peritoneal dialysis and infection with antibiotics. (7) ESRD (end stage renal disease) on dialysis Is this a current diagnosis for this admission?: Yes Plan: Patient is on peritoneal dialysis. Dr. Moran is following. (9) Hypertension Qualifiers: Hypertension type: essential hypertension Qualified Code(s): I10 - Essential (primary) hypertension Is this a current diagnosis for this admission?: Yes Plan: Patient was unable to tell us what her medications were. We finally got a list. She had high IV as needed hydralazine available. I gave her a dose of amlodipine 10 mg. Her medication list is now available and medications are being reconciled so she can start her home medications. We will continue to make hydralazine 10 mg IV available as needed elevated blood pressure. Parameters in the chart. - Time Time Spent: Greater than 70 Minutes - Inpatient Certification Based on my medical assessment, after consideration of the patient's comorbidities, presenting symptoms, or acuity I expect that the services needed warrant INPATIENT care.: Yes I certify that my determination is in accordance with my understanding of Medicare's requirements for reasonable and necessary INPATIENT services [42 CFR 412.3e].: Yes Medical Necessity: Significant Comorbidiites Make Outpatient Treatment Too Risky , Need Close Monitoring Due to Risk of Patient Decompensation, Need For Continuous Telemetry Monitoring, Need for IV Antibiotics
[2017-04-29] MEDS: HEPARIN SOD (PORCINE) 5,000 UNIT/ML 1 ML SYRINGE SUBCUT SCH (22:58)
[2017-04-29] MEDS: HYDRALAZINE HCL 50 MG TABLET PO SCH (22:58)
[2017-04-29] MEDS: CARVEDILOL 12.5 MG TABLET PO SCH (22:58)
[2017-04-29] MEDS: PREGABALIN 75 MG CAPSULE PO SCH (23:02)
[2017-04-29] MEDS ORDERED: VANCOMYCIN HCL INJ 1000 MG VIAL IV PRN (23:19)
[2017-04-29] MEDS ORDERED: VANCOMYCIN HCL IV ONE (23:30)
[2017-04-29] MEDS ORDERED: DEXTROSE 5% IV ONE (23:30)
[2017-04-29] MEDS ORDERED: WATER IV ONE (23:30)
[2017-04-29 23:40] LABS: CREATINE KINASE MB 6.59 ng/mL (<4.55)
[2017-04-29 23:44] LABS: TROPONIN I 0.218 ng/mL
[2017-04-30] MEDS ORDERED: VANCOMYCIN HCL INJ 500 MG VIAL ONE (01:55)
[2017-04-30] MEDS ORDERED: CIPROFLOXACIN HCL 0.3% OPH SOLN 2.5 ML ONE (01:55)
[2017-04-30] MEDS ORDERED: VANCOMYCIN HCL INJ 1000 MG VIAL ONE (01:55)
[2017-04-30] MEDS ORDERED: GENTAMICIN SULFATE 0.1% OINTMENT 15 GM ONE (01:56)
[2017-04-30] MEDS: GENTAMICIN SULFATE 0.1% OINTMENT 15 GM TP SCH ×5 (02:16→16:42)
[2017-04-30] MEDS: BENZONATATE 100 MG CAPSULE PO SCH ×3 (05:31→21:23)
[2017-04-30] MEDS: HYDRALAZINE HCL 50 MG TABLET PO SCH ×3 (05:31→21:23)
[2017-04-30] MEDS: HEPARIN SOD (PORCINE) 5,000 UNIT/ML 1 ML SYRINGE SUBCUT SCH ×3 (05:32→21:24)
[2017-04-30] MEDS: CIPROFLOXACIN HCL 0.3% OPH SOLN 2.5 ML OU SCH ×9 (05:32→21:29)
[2017-04-30 05:44] LABS: HEMATOCRIT 30.4 % (36.0-47.0); HEMOGLOBIN 9.4 g/dL (12.0-15.5); MEAN CORPUSCULAR HEMOGLOBIN 24.8 pg (27.0-33.4); MEAN CORPUSCULAR HGB CONC 31.1 g/dL (32.0-36.0); MEAN CORPUSCULAR VOLUME 80 fl (80-97); PLATELET COUNT 218 10^3/uL (150-450); RED BLOOD COUNT 3.81 10^6/uL (3.72-5.28); RED CELL DISTRIBUTION WIDTH 20.5 % (11.5-14.0); WHITE BLOOD COUNT 21.3 10^3/uL (4.0-10.5)
[2017-04-30 05:51] LABS: BLOOD UREA NITROGEN 107 mg/dL (7-20); GLUCOSE 276 mg/dL (75-110); POTASSIUM 4.1 mmol/L (3.6-5.0)
[2017-04-30 05:56] LABS: CARBON DIOXIDE 19 mmol/L (22-30); CHLORIDE 95 mmol/L (98-107); SODIUM 137.5 mmol/L (137-145)
[2017-04-30 05:59] LABS: ANION GAP 24 (5-19)
[2017-04-30] MEDS ORDERED: CEFEPIME INJ 2 GM VIAL ONE (06:02)
[2017-04-30] MEDS: CEFEPIME 2 GM/D5W RTU 2 GM/50 ML RTUPB IV SCH ×2 (06:17→18:02)
[2017-04-30] MEDS: INSULIN LISPRO 100 UNIT/ML 3 ML VIAL SUBCUT SCH ×3 (07:50→17:03)
[2017-04-30] MEDS: INSULIN LISPRO 100 UNIT/ML 3 ML VIAL SUBCUT PRN ×3 (07:50→21:24)
[2017-04-30] MEDS: CALCIUM ACETATE 667 MG CAPSULE PO SCH ×3 (07:51→16:42)
[2017-04-30] MEDS ORDERED: CEFTRIAXONE SODIUM 1,000 MG in NORMAL SALINE 100 ML IV SCH (10:00)
[2017-04-30] MEDS ORDERED: CEFTRIAXONE 1 GM/D5W RTU 50 ML IV SCH (10:00)
[2017-04-30] MEDS ORDERED: CEFTRIAXONE SODIUM 1,000 MG in DEXTROSE 5%-WATER 100 ML IV SCH (10:00)
[2017-04-30] MEDS: PREGABALIN 75 MG CAPSULE PO SCH ×2 (10:04→21:23)
[2017-04-30] MEDS: CARVEDILOL 12.5 MG TABLET PO SCH ×2 (10:04→21:24)
[2017-04-30] MEDS: POLYETHYLENE GLYCOL 3350 POWDER 17 GM/1 PACKET PO SCH (10:04)
--- NOTE | 2017-04-30 14:02 | PDOC PROGRESS REPORT ---
Subjective Progress Note for:: 04/30/17 Subjective:: Difficulty breathing and shortness of breath Reason For Visit: CHF EXACERBATION WITH BRONCHITIS Physical Exam Vital Signs: Temp Pulse Resp BP Pulse Ox 97.9 F 77 14 134/79 H 97 04/30/17 12:13 04/30/17 12:13 04/30/17 12:13 04/30/17 12:13 04/30/17 12:13 Intake & Output 04/29/17 04/30/17 05/01/17 06:59 06:59 06:59 Intake Total 7500 2500 Output Total 9240 2900 Balance -1740 -400 Weight 178.9 kg 176.9 kg General appearance: PRESENT: no acute distress, other - sleeping, arousable, sitting in chair Ear exam: PRESENT: normal external ear exam Neck exam: ABSENT: carotid bruit, JVD, lymphadenopathy, thyromegaly Respiratory exam: PRESENT: clear to auscultation shira. ABSENT: rales, rhonchi, wheezes Cardiovascular exam: PRESENT: RRR. ABSENT: diastolic murmur, rubs, systolic murmur Pulses: PRESENT: normal dorsalis pedis pul GI/Abdominal exam: PRESENT: normal bowel sounds, soft. ABSENT: distended, guarding, mass, organolmegaly, rebound, tenderness Extremities exam: PRESENT: full ROM. ABSENT: calf tenderness - sleeping but arousable, clubbing, pedal edema Results Laboratory Results: 04/30/17 04:59 04/30/17 04:59 04/29/17 04/30/17 04/30/17 18:26 04:59 04:59 WBC 21.3 H RBC 3.81 Hgb 9.4 L Hct 30.4 L MCV 80 MCH 24.8 L MCHC 31.1 L RDW 20.5 H Plt Count 218 Sodium 137.5 Potassium 4.1 Chloride 95 L Carbon Dioxide 19 L Anion Gap 24 H BUN 107 H Creatinine 20.02 H Est GFR ( Amer) 2 L Est GFR (Non-Af Amer) 2 L Glucose 276 H Calcium 10.0 Fluid Type PERITONEAL Fluid Source ABDOMEN Fluid Color COLORLESS Fluid Appearance CLEAR Fluid Viscosity LIQUID Fluid WBC 1 Fluid RBC 0 04/29/17 04/29/17 04/29/17 15:43 15:43 23:00 Creatine Kinase 1012 H 915 H CK-MB (CK-2) 6.58 H Troponin I 0.241 04/29/17 23:00 Creatine Kinase CK-MB (CK-2) 6.59 H Troponin I 0.218 Impressions: Chest X-Ray 04/29/17 11:14 IMPRESSION: 1 As on the prior examination dated 04/26/2027, mild cardiomegaly and prominence of the pulmonary vasculature, suggesting vascular congestion. 2. Limited lung volumes. No acute pulmonary consolidation. Assessment & Plan - Diagnosis (2) Leukocytosis Is this a current diagnosis for this admission?: Yes Plan: Not sure the precise etiology. Would continue to trend, continue empiric antibiotics (3) Upper respiratory infection Qualifiers: Airway obstruction: without obstruction Is this a current diagnosis for this admission?: Yes (4) Acute congestive heart failure Qualifiers: Qualified Code(s): I50.31 - Acute diastolic (congestive) heart failure Plan: Echo is pending. This may be a diastolic dysfunction from the volume overload and not CHF. Will follow up with this (5) ESRD (end stage renal disease) on dialysis Is this a current diagnosis for this admission?: Yes Plan: Continue PD as per Nephrology (6) Hypertensive urgency Is this a current diagnosis for this admission?: Yes Plan: Bp is much better controlled on current regimen (7) Diabetes mellitus type 1 Qualifiers: Diabetes mellitus complication status: with kidney complications Diabetes mellitus complication detail: with chronic kidney disease Chronic kidney disease stage: on chronic dialysis Qualified Code(s): E10.22 - Type 1 diabetes mellitus with diabetic chronic kidney disease Is this a current diagnosis for this admission?: Yes (8) Elevated troponin level Is this a current diagnosis for this admission?: Yes Plan: Likely combination of hypertensive urgency and ESRD. No evidence of ACS. Will continue to trend - Time Time Spent with patient: 15-24 minutes Medications reviewed and adjusted accordingly: Yes Within: within 72 hours - Inpatient Certification Based on my medical assessment, after consideration of the patient's comorbidities, presenting symptoms, or acuity I expect that the services needed warrant INPATIENT care.: Yes Medical Necessity: Need for IV Antibiotics
[2017-04-30] MEDS: FOLIC ACID/VITAMIN B COMP W-C CAPSULE PO SCH (16:06)
--- NOTE | 2017-04-30 18:12 | PDOC PROGRESS REPORT ---
Subjective Progress Note for:: 04/30/17 Subjective:: Patient appears to be better and she feels better as well today. He said the Tessalon Perles is working for the cough. He does not appear to be as short of breath. Her eyes looks better as well. In terms of peritoneal dialysis everything seems to be working well. We are able to get ultrafiltration using current regimen. Patient is tolerating it well without any problems or complications at this time. Reason For Visit: ESRD, CHF EXACERBATION WITH BRONCHITIS Physical Exam Vital Signs: Temp Pulse Resp BP Pulse Ox 98.4 F 75 20 143/82 H 94 04/30/17 15:12 04/30/17 15:12 04/30/17 15:12 04/30/17 15:12 04/30/17 15:12 Intake & Output 04/29/17 04/30/17 05/01/17 06:59 06:59 06:59 Intake Total 7500 5118 Output Total 9240 5700 Balance -1740 -582 Weight 178.9 kg 175.3 kg Exam: General appearance: PRESENT: no acute distress, cooperative, well-developed, well-nourished Head exam: PRESENT: atraumatic, normocephalic Eye exam: PRESENT: conjunctiva pink, there is less erythema on bilateral conjunctival without any drainage today PERRLA. ABSENT: scleral icterus Neck exam: ABSENT: JVD Respiratory exam: PRESENT: Normal breath sounds. ABSENT: crackles, rales, rhonchi, unlabored, wheezes Cardiovascular exam: PRESENT: Regular rate rhythm -+S1, +S2. ABSENT: diastolic murmur, systolic murmur GI/Abdominal exam: PRESENT: normal bowel sounds, soft. ABSENT: guarding, mass, tenderness Extremities exam: Trace bilateral lower extremity pitting edema Neurological exam: PRESENT: alert, awake, oriented to person, place and time. Skin exam: PRESENT: dry, warm, Results Laboratory Results: 04/30/17 04:59 04/30/17 04:59 04/29/17 04/30/17 04/30/17 18:26 04:59 04:59 WBC 21.3 H RBC 3.81 Hgb 9.4 L Hct 30.4 L MCV 80 MCH 24.8 L MCHC 31.1 L RDW 20.5 H Plt Count 218 Sodium 137.5 Potassium 4.1 Chloride 95 L Carbon Dioxide 19 L Anion Gap 24 H BUN 107 H Creatinine 20.02 H Est GFR ( Amer) 2 L Est GFR (Non-Af Amer) 2 L Glucose 276 H Calcium 10.0 Fluid Type PERITONEAL Fluid Source ABDOMEN Fluid Color COLORLESS Fluid Appearance CLEAR Fluid Viscosity LIQUID Fluid WBC 1 Fluid RBC 0 04/29/17 04/29/17 04/29/17 15:43 15:43 23:00 Creatine Kinase 1012 H 915 H CK-MB (CK-2) 6.58 H Troponin I 0.241 04/29/17 23:00 Creatine Kinase CK-MB (CK-2) 6.59 H Troponin I 0.218 Impressions: Chest X-Ray 04/29/17 11:14 IMPRESSION: 1 As on the prior examination dated 04/26/2027, mild cardiomegaly and prominence of the pulmonary vasculature, suggesting vascular congestion. 2. Limited lung volumes. No acute pulmonary consolidation. Assessment & Plan - Diagnosis (1) Acute bronchitis Is this a current diagnosis for this admission?: Yes Plan: Viral versus bacterial infection. On IV antibiotics and Tessalon Perles for cough. (2) ESRD (end stage renal disease) on dialysis Is this a current diagnosis for this admission?: Yes Plan: We will continue peritoneal dialysis by doing CAPD since we do not have the cycler machine here. She will do a fill volume of 2.5 L every 4 hours for a total of 6 exchanges in 24 hours. We will use 2.5% solution except if the systolic blood pressure is less than 120 then we need to use 1.5% diagonal solution. Continue daily exit site care. Follow aseptic technique always. Continue current regimen. (3) Leukocytosis Is this a current diagnosis for this admission?: Yes (4) Hypertension Qualifiers: Hypertension type: essential hypertension Qualified Code(s): I10 - Essential (primary) hypertension Is this a current diagnosis for this admission?: Yes Plan: Resume blood pressure medications. Ultrafiltration will help. (5) Anemia in chronic kidney disease (CKD) Qualifiers: Chronic kidney disease stage: on chronic dialysis Qualified Code(s): N18.6 - End stage renal disease; D63.1 - Anemia in chronic kidney disease; D63.1 - Anemia in chronic kidney disease; Z99.2 - Dependence on renal dialysis; Z99.2 - Dependence on renal dialysis; Z99.2 - Dependence on renal dialysis; Z99.2 - Dependence on renal dialysis Is this a current diagnosis for this admission?: Yes Plan: We will give Procrit tomorrow. (6) Diabetes mellitus type 2 in obese Is this a current diagnosis for this admission?: Yes - Time Time with patient: 15-25 minutes
[2017-05-01] MEDS: CEFEPIME 2 GM/D5W RTU 2 GM/50 ML RTUPB IV SCH (05:39)
[2017-05-01] MEDS: HYDRALAZINE HCL 50 MG TABLET PO SCH ×3 (05:41→23:07)
[2017-05-01] MEDS: BENZONATATE 100 MG CAPSULE PO SCH ×3 (05:41→23:05)
[2017-05-01] MEDS: HEPARIN SOD (PORCINE) 5,000 UNIT/ML 1 ML SYRINGE SUBCUT SCH ×3 (05:44→23:22)
[2017-05-01] MEDS: CIPROFLOXACIN HCL 0.3% OPH SOLN 2.5 ML OU SCH ×5 (05:45→17:06)
[2017-05-01 06:42] LABS: HEMATOCRIT 28.2 % (36.0-47.0); MEAN CORPUSCULAR HEMOGLOBIN 25.5 pg (27.0-33.4); MEAN CORPUSCULAR HGB CONC 31.8 g/dL (32.0-36.0); MEAN CORPUSCULAR VOLUME 80 fl (80-97); PLATELET COUNT 233 10^3/uL (150-450); RED BLOOD COUNT 3.52 10^6/uL (3.72-5.28); RED CELL DISTRIBUTION WIDTH 20.3 % (11.5-14.0); WHITE BLOOD COUNT 15.8 10^3/uL (4.0-10.5)
[2017-05-01 07:09] LABS: CREATINE KINASE MB 4.14 ng/mL (<4.55)
[2017-05-01 07:12] LABS: TROPONIN I 0.123 ng/mL
[2017-05-01 07:36] LABS: BLOOD UREA NITROGEN 104 mg/dL (7-20); CALCIUM 9.8 mg/dL (8.4-10.2); CREATINE KINASE 477 U/L (30-135); GLUCOSE 225 mg/dL (75-110); POTASSIUM 4.5 mmol/L (3.6-5.0)
[2017-05-01 07:43] LABS: CARBON DIOXIDE 18 mmol/L (22-30); CHLORIDE 93 mmol/L (98-107); SODIUM 135.9 mmol/L (137-145)
[2017-05-01 07:48] LABS: ANION GAP 25 (5-19)
[2017-05-01] MEDS: INSULIN LISPRO 100 UNIT/ML 3 ML VIAL SUBCUT SCH ×3 (08:44→17:04)
[2017-05-01] MEDS: INSULIN LISPRO 100 UNIT/ML 3 ML VIAL SUBCUT PRN ×3 (08:44→22:59)
[2017-05-01] MEDS: CALCIUM ACETATE 667 MG CAPSULE PO SCH ×3 (08:44→17:05)
[2017-05-01] MEDS: CARVEDILOL 12.5 MG TABLET PO SCH ×2 (10:04→23:03)
[2017-05-01] MEDS: POLYETHYLENE GLYCOL 3350 POWDER 17 GM/1 PACKET PO SCH (10:05)
[2017-05-01] MEDS: GENTAMICIN SULFATE 0.1% OINTMENT 15 GM TP SCH (10:05)
[2017-05-01] MEDS: PREGABALIN 75 MG CAPSULE PO SCH ×2 (10:05→23:06)
[2017-05-01] MEDS: IPRATROPIUM/ALBUTEROL 0.5-2.5 MG/3 ML AMPUL NEB SCH ×2 (14:20→20:25)
[2017-05-01] MEDS: FOLIC ACID/VITAMIN B COMP W-C CAPSULE PO SCH (15:27)
--- NOTE | 2017-05-01 15:58 | PDOC PROGRESS REPORT ---
Subjective Progress Note for:: 05/01/17 Subjective:: Difficulty breathing and shortness of breath Reason For Visit: CHF EXACERBATION WITH BRONCHITIS Physical Exam Vital Signs: Temp Pulse Resp BP Pulse Ox 98.4 F 84 20 123/62 95 05/01/17 11:09 05/01/17 14:20 05/01/17 14:20 05/01/17 11:09 05/01/17 14:20 Intake & Output 04/30/17 05/01/17 05/02/17 06:59 06:59 06:59 Intake Total 7500 04953 2500 Output Total 9240 56680 2800 Balance -8685 -8058 -300 Weight 178.9 kg 176.1 kg 178.9 kg Results Laboratory Results: 05/01/17 05:17 05/01/17 05:17 05/01/17 05/01/17 05:17 05:17 WBC 15.8 H RBC 3.52 L Hgb 9.0 L Hct 28.2 L MCV 80 MCH 25.5 L MCHC 31.8 L RDW 20.3 H Plt Count 233 Sodium 135.9 L Potassium 4.5 Chloride 93 L Carbon Dioxide 18 L Anion Gap 25 H BUN 104 H Creatinine 19.30 H Est GFR ( Amer) 2 L Est GFR (Non-Af Amer) 2 L Glucose 225 H Calcium 9.8 04/29/17 04/29/17 04/29/17 15:43 15:43 23:00 Creatine Kinase 1012 H 915 H CK-MB (CK-2) 6.58 H Troponin I 0.241 04/29/17 05/01/17 05/01/17 23:00 05:17 05:17 Creatine Kinase 477 H CK-MB (CK-2) 6.59 H 4.14 Troponin I 0.218 0.123 Impressions: Chest X-Ray 04/29/17 11:14 IMPRESSION: 1 As on the prior examination dated 04/26/2027, mild cardiomegaly and prominence of the pulmonary vasculature, suggesting vascular congestion. 2. Limited lung volumes. No acute pulmonary consolidation. Assessment & Plan - Diagnosis (1) Peritoneal dialysis status Is this a current diagnosis for this admission?: Yes Plan: Continue PD as per Nephrology (2) Leukocytosis Is this a current diagnosis for this admission?: Yes Plan: Not sure the precise etiology but improved. Would continue to trend, continue empiric antibiotics (3) Upper respiratory infection Qualifiers: Airway obstruction: without obstruction Is this a current diagnosis for this admission?: Yes Plan: Continue empiric antibiotic (4) Acute congestive heart failure Plan: Echo is ordered. This may be a diastolic dysfunction from the volume overload and not CHF. BNP is 30k however in a PD patient with high kt/v this is probably of limited usefulness (5) ESRD (end stage renal disease) on dialysis Is this a current diagnosis for this admission?: Yes Plan: Continue PD as per Nephrology (6) Hypertensive urgency Is this a current diagnosis for this admission?: Yes Plan: Bp is much better controlled. Cont current regimen (7) Diabetes mellitus type 1 Qualifiers: Diabetes mellitus complication status: with kidney complications Diabetes mellitus complication detail: with chronic kidney disease Chronic kidney disease stage: on chronic dialysis Qualified Code(s): E10.22 - Type 1 diabetes mellitus with diabetic chronic kidney disease; N18.6 - End stage renal disease; N18.6 - End stage renal disease; N18.6 - End stage renal disease; N18.6 - End stage renal disease; Z99.2 - Dependence on renal dialysis; Z99.2 - Dependence on renal dialysis; Z99.2 - Dependence on renal dialysis; Z99.2 - Dependence on renal dialysis Is this a current diagnosis for this admission?: Yes Plan: SSI (8) Elevated troponin level Is this a current diagnosis for this admission?: Yes Plan: Likely combination of hypertensive urgency and ESRD. No evidence of ACS.
[2017-05-01] MEDS ORDERED: CEFTRIAXONE 1 GM/D5W RTU 1 GM/50 ML RTUPB IV SCH (16:00)
[2017-05-01] MEDS: GUAIFENESIN 600 MG TABLET.SA PO SCH (17:05)
[2017-05-01] MEDS: CEFTRIAXONE SODIUM 1,000 MG in NORMAL SALINE 100 ML IV SCH (18:11)
--- NOTE | 2017-05-01 18:17 | PDOC PROGRESS REPORT ---
Subjective Progress Note for:: 05/01/17 Subjective:: Patient continues to cough. She is being tried on other cough medications. She appears to be clinically better now. Her CAPD is so far doing well without any problems or complications. We are getting adequate enough ultrafiltration. Reason For Visit: CHF EXACERBATION WITH BRONCHITIS Physical Exam Vital Signs: Temp Pulse Resp BP Pulse Ox 97.8 F 86 20 141/87 H 98 05/01/17 15:47 05/01/17 15:47 05/01/17 15:47 05/01/17 15:47 05/01/17 17:08 Intake & Output 04/30/17 05/01/17 05/02/17 06:59 06:59 06:59 Intake Total 7500 50570 5130 Output Total 9240 36087 5800 Balance -1740 -1407 -670 Weight 178.9 kg 176.1 kg 177.9 kg Exam: General appearance: PRESENT: no acute distress, cooperative, well-developed, well-nourished Head exam: PRESENT: atraumatic, normocephalic Eye exam: PRESENT: conjunctiva pale, no conjunctival congestion or drainage PERRLA. ABSENT: scleral icterus Neck exam: ABSENT: JVD Respiratory exam: PRESENT: Diminished breath sounds. ABSENT: crackles, rales, rhonchi, unlabored, wheezes Cardiovascular exam: PRESENT: Regular rate rhythm -+S1, +S2. ABSENT: diastolic murmur, systolic murmur GI/Abdominal exam: PRESENT: normal bowel sounds, soft. ABSENT: guarding, mass, tenderness Extremities exam: ABSENT: Trace bilateral lower extremity pitting edema Neurological exam: PRESENT: alert, awake, oriented to person, place and time. Skin exam: PRESENT: dry, warm, Results Laboratory Results: 05/01/17 05:17 05/01/17 05:17 05/01/17 05/01/17 05:17 05:17 WBC 15.8 H RBC 3.52 L Hgb 9.0 L Hct 28.2 L MCV 80 MCH 25.5 L MCHC 31.8 L RDW 20.3 H Plt Count 233 Sodium 135.9 L Potassium 4.5 Chloride 93 L Carbon Dioxide 18 L Anion Gap 25 H BUN 104 H Creatinine 19.30 H Est GFR ( Amer) 2 L Est GFR (Non-Af Amer) 2 L Glucose 225 H Calcium 9.8 04/29/17 04/29/17 04/29/17 15:43 15:43 23:00 Creatine Kinase 1012 H 915 H CK-MB (CK-2) 6.58 H Troponin I 0.241 04/29/17 05/01/17 05/01/17 23:00 05:17 05:17 Creatine Kinase 477 H CK-MB (CK-2) 6.59 H 4.14 Troponin I 0.218 0.123 Impressions: Chest X-Ray 04/29/17 11:14 IMPRESSION: 1 As on the prior examination dated 04/26/2027, mild cardiomegaly and prominence of the pulmonary vasculature, suggesting vascular congestion. 2. Limited lung volumes. No acute pulmonary consolidation. Assessment & Plan - Diagnosis (1) Acute bronchitis Is this a current diagnosis for this admission?: Yes Plan: Viral versus bacterial infection. On IV antibiotics and Tessalon Perles for cough. Mucinex added today. (2) ESRD (end stage renal disease) on dialysis Is this a current diagnosis for this admission?: Yes Plan: We will continue peritoneal dialysis by doing CAPD since we do not have the cycler machine here. She will do a fill volume of 2.5 L every 4 hours for a total of 6 exchanges in 24 hours. We will use 2.5% solution except if the systolic blood pressure is less than 120 then we need to use 1.5% diagonal solution. Continue daily exit site care. Follow aseptic technique always. Continue current regimen. (3) Leukocytosis Is this a current diagnosis for this admission?: Yes (4) Hypertension Qualifiers: Hypertension type: essential hypertension Qualified Code(s): I10 - Essential (primary) hypertension Is this a current diagnosis for this admission?: Yes Plan: Resume blood pressure medications. Ultrafiltration will help. Currently well controlled. (5) Anemia in chronic kidney disease (CKD) Qualifiers: Chronic kidney disease stage: on chronic dialysis Qualified Code(s): N18.6 - End stage renal disease; D63.1 - Anemia in chronic kidney disease; D63.1 - Anemia in chronic kidney disease; Z99.2 - Dependence on renal dialysis; Z99.2 - Dependence on renal dialysis; Z99.2 - Dependence on renal dialysis; Z99.2 - Dependence on renal dialysis Is this a current diagnosis for this admission?: Yes Plan: We will give Procrit today. (6) Diabetes mellitus type 2 in obese Is this a current diagnosis for this admission?: Yes - Time Time with patient: 15-25 minutes
[2017-05-01] MEDS ORDERED: EPOETIN ALFA INJ 20000 UNIT/1 ML VIAL (RENAL) SUBCUT ONE (21:00)
[2017-05-01] MEDS ORDERED: ACETAMINOPHEN 325 MG TABLET ONE (23:59)
[2017-05-02] MEDS: IPRATROPIUM/ALBUTEROL 0.5-2.5 MG/3 ML AMPUL NEB PRN (01:47)
[2017-05-02] MEDS: CIPROFLOXACIN HCL 0.3% OPH SOLN 2.5 ML OU SCH ×4 (02:06→18:10)
[2017-05-02] MEDS: HEPARIN SOD (PORCINE) 5,000 UNIT/ML 1 ML SYRINGE SUBCUT SCH ×3 (06:16→21:31)
[2017-05-02] MEDS: GUAIFENESIN 600 MG TABLET.SA PO SCH ×2 (06:16→18:10)
[2017-05-02] MEDS: HYDRALAZINE HCL 50 MG TABLET PO SCH ×3 (06:16→21:31)
[2017-05-02] MEDS: BENZONATATE 100 MG CAPSULE PO SCH ×3 (06:16→21:32)
[2017-05-02 06:32] LABS: HEMATOCRIT 28.7 % (36.0-47.0); HEMOGLOBIN 8.9 g/dL (12.0-15.5); MEAN CORPUSCULAR VOLUME 81 fl (80-97); PLATELET COUNT 261 10^3/uL (150-450); RED BLOOD COUNT 3.56 10^6/uL (3.72-5.28); RED CELL DISTRIBUTION WIDTH 20.1 % (11.5-14.0); WHITE BLOOD COUNT 15.1 10^3/uL (4.0-10.5)
[2017-05-02 06:40] LABS: BLOOD UREA NITROGEN 96 mg/dL (7-20); CALCIUM 10.3 mg/dL (8.4-10.2); GLUCOSE 199 mg/dL (75-110); POTASSIUM 4.2 mmol/L (3.6-5.0)
[2017-05-02 06:50] LABS: CARBON DIOXIDE 25 mmol/L (22-30); CHLORIDE 92 mmol/L (98-107); SODIUM 138.1 mmol/L (137-145)
[2017-05-02 06:51] LABS: ANION GAP 21 (5-19)
[2017-05-02] MEDS: IPRATROPIUM/ALBUTEROL 0.5-2.5 MG/3 ML AMPUL NEB SCH ×3 (08:08→20:38)
[2017-05-02] MEDS: POLYETHYLENE GLYCOL 3350 POWDER 17 GM/1 PACKET PO SCH (09:20)
[2017-05-02] MEDS: CARVEDILOL 12.5 MG TABLET PO SCH ×2 (09:20→21:31)
[2017-05-02] MEDS: CALCIUM ACETATE 667 MG CAPSULE PO SCH ×3 (09:20→18:10)
[2017-05-02] MEDS: GENTAMICIN SULFATE 0.1% OINTMENT 15 GM TP SCH (09:21)
[2017-05-02] MEDS: INSULIN LISPRO 100 UNIT/ML 3 ML VIAL SUBCUT SCH ×3 (09:21→18:11)
[2017-05-02] MEDS: PREGABALIN 75 MG CAPSULE PO SCH ×2 (09:21→21:31)
[2017-05-02] MEDS: INSULIN LISPRO 100 UNIT/ML 3 ML VIAL SUBCUT PRN ×3 (09:28→18:12)
--- NOTE | 2017-05-02 12:54 | PDOC PROGRESS REPORT ---
Subjective Progress Note for:: 05/02/17 Subjective:: Difficulty breathing and shortness of breath Reason For Visit: CHF EXACERBATION WITH BRONCHITIS Physical Exam Vital Signs: Temp Pulse Resp BP Pulse Ox 97.9 F 80 18 143/79 H 94 05/02/17 11:11 05/02/17 11:11 05/02/17 11:11 05/02/17 11:11 05/02/17 11:11 Intake & Output 05/01/17 05/02/17 05/03/17 06:59 06:59 06:59 Intake Total 56832 56665 2500 Output Total 28670 02941 3100 Balance -9963 -673 -600 Weight 176.1 kg 181.3 kg 180.6 kg General appearance: PRESENT: no acute distress, morbidly obese Head exam: PRESENT: atraumatic Ear exam: PRESENT: normal external ear exam Respiratory exam: PRESENT: decreased breath sounds, rhonchi, unlabored. ABSENT : tachypnea, wheezes Cardiovascular exam: PRESENT: RRR. ABSENT: diastolic murmur, rubs, systolic murmur GI/Abdominal exam: PRESENT: normal bowel sounds, soft. ABSENT: distended, guarding, mass, organolmegaly, rebound, tenderness Rectal exam: PRESENT: deferred Neurological exam: PRESENT: alert, awake, oriented to person, oriented to time, oriented to situation Psychiatric exam: PRESENT: appropriate affect, normal mood. ABSENT: homicidal ideation, suicidal ideation Results Laboratory Results: 05/02/17 05:01 05/02/17 05:01 05/02/17 05/02/17 05:01 05:01 WBC 15.1 H RBC 3.56 L Hgb 8.9 L Hct 28.7 L MCV 81 MCH 25.0 L MCHC 31.0 L RDW 20.1 H Plt Count 261 Sodium 138.1 Potassium 4.2 Chloride 92 L Carbon Dioxide 25 Anion Gap 21 H BUN 96 H Creatinine 19.42 H Est GFR ( Amer) 2 L Est GFR (Non-Af Amer) 2 L Glucose 199 H Calcium 10.3 H 04/29/17 04/29/17 04/29/17 15:43 15:43 23:00 Creatine Kinase 1012 H 915 H CK-MB (CK-2) 6.58 H Troponin I 0.241 04/29/17 05/01/17 05/01/17 23:00 05:17 05:17 Creatine Kinase 477 H CK-MB (CK-2) 6.59 H 4.14 Troponin I 0.218 0.123 Impressions: Chest X-Ray 04/29/17 11:14 IMPRESSION: 1 As on the prior examination dated 04/26/2027, mild cardiomegaly and prominence of the pulmonary vasculature, suggesting vascular congestion. 2. Limited lung volumes. No acute pulmonary consolidation. Assessment & Plan - Diagnosis (1) Peritoneal dialysis status Is this a current diagnosis for this admission?: Yes Plan: Continue PD as per Nephrology (2) Leukocytosis Is this a current diagnosis for this admission?: Yes Plan: secondary to sepsis, continue antibiotics (3) Upper respiratory infection Qualifiers: Airway obstruction: without obstruction Is this a current diagnosis for this admission?: Yes Plan: Continue Ceftriaxone (4) Acute congestive heart failure Plan: Echo is pending. This may be a diastolic dysfunction from the volume overload and not CHF. BNP is 30k however in a PD patient with high kt/v this is probably of limited usefulness (5) ESRD (end stage renal disease) on dialysis Is this a current diagnosis for this admission?: Yes Plan: Continue PD as per Nephrology (6) Hypertensive urgency Is this a current diagnosis for this admission?: Yes Plan: Bp is much better controlled. Cont current regimen (7) Diabetes mellitus type 1 Qualifiers: Diabetes mellitus complication status: with kidney complications Diabetes mellitus complication detail: with chronic kidney disease Chronic kidney disease stage: on chronic dialysis Qualified Code(s): E10.22 - Type 1 diabetes mellitus with diabetic chronic kidney disease; N18.6 - End stage renal disease; N18.6 - End stage renal disease; N18.6 - End stage renal disease; N18.6 - End stage renal disease; Z99.2 - Dependence on renal dialysis; Z99.2 - Dependence on renal dialysis; Z99.2 - Dependence on renal dialysis; Z99.2 - Dependence on renal dialysis Is this a current diagnosis for this admission?: Yes Plan: improved (8) Elevated troponin level Is this a current diagnosis for this admission?: Yes Plan: Likely combination of hypertensive urgency and ESRD. No evidence of ACS. Will follow up on Echo - Time Time Spent with patient: 15-24 minutes Medications reviewed and adjusted accordingly: Yes Anticipated discharge: Home Within: within 48 hours
[2017-05-02] MEDS: ACETAMINOPHEN 325 MG TABLET PO PRN (13:48)
--- NOTE | 2017-05-02 17:57 | XCELERA REPORT ---
[address] [address] Transthoracic Echocardiogram Report Name: JASPREET STAFFORD Age: 51 yrs Gender: Female : 1965 Patient Status: Inpatient Patient Location: [address] [place] [address] Study Date: 05/02/2017 03:25 PM Height: 73 in Weight: 392 lb BSA: 2.9 m2 Procedure: A complete two-dimensional transthoracic echocardiogram was performed (2D, M-mode, spectral and color flow Doppler). The study was technically difficult with many images being suboptimal in quality. Reason For Study: PVC, ? diastolic dysfunction, ESRD Ordering Physician: XAVIER CARRANZA Performed By: Renita Wilson Interpretation Summary The study was technically difficult with many images being suboptimal in quality. Left ventricular systolic function is low normal. There is moderate concentric left ventricular hypertrophy. Doppler measurements suggest reversible restrictive left ventricular relaxation, which is associated with grade III/IV or moderate diastolic dysfunction The left ventricle is grossly normal size. Wall motion cannot be accurately commented on, but no definite regional wall motion abnormalities noted. The right ventricle is mildly dilated. Right ventricular function cannot be assessed due to poor image quality. The left atrium is mildly dilated. Borderline right atrial enlargement. There is a trace amount of mitral regurgitation There is no mitral valve stenosis. No aortic regurgitation is present. There is no aortic valve stenosis There is no tricuspid stenosis. No tricuspid regurgitation. The aortic root is not well visualized. The inferior vena cava appeared normal and decreased < 50% with respiration (RAP 10-15 mmHg) There is no pericardial effusion. MMode/2D Measurements & Calculations RVDd: 2.6 cm LVIDd: 6.3 cm FS: 29.7 % Ao root diam: 3.8 cm IVSd: 1.9 cm LVIDs: 4.4 cm EDV(Teich): 197.6 ml LVPWd: 1.8 cm ESV(Teich): 87.3 ml Ao root area: 11.6 cm2 EF(Teich): 55.8 % LA dimension: 3.2 cm Doppler Measurements & Calculations MV E max jesse: MV P1/2t max jesse: Ao V2 max: LV V1 max P.2 cm/sec 97.7 cm/sec 161.5 cm/sec 3.5 mmHg MV A max jesse: MV P1/2t: 32.1 msec Ao max PG: LV V1 max: 82.9 cm/sec 10.4 mmHg 93.8 cm/sec MV E/A: 1.2 MVA(P1/2t): 6.8 cm2 MV dec slope: 890.8 cm/sec2 PA V2 max: 96.3 cm/sec PA max P.7 mmHg Left Ventricle The left ventricle is grossly normal size. There is moderate concentric left ventricular hypertrophy. Left ventricular systolic function is low normal. Doppler measurements suggest reversible restrictive left ventricular relaxation, which is associated with grade III/IV or moderate diastolic dysfunction. Wall motion cannot be accurately commented on, but no definite regional wall motion abnormalities noted. Right Ventricle The right ventricle is mildly dilated. Right ventricular function cannot be assessed due to poor image quality. Atria Borderline right atrial enlargement. The left atrium is mildly dilated. Interarterial septum not well visualized and not well dopplered. Cannot comment on ASD/PFO presence. Mitral Valve The mitral valve is grossly normal. There is no mitral valve stenosis. There is a trace amount of mitral regurgitation. Aortic Valve The aortic valve is mildly calcified. There is no aortic valve stenosis. No aortic regurgitation is present. Tricuspid Valve The tricuspid valve is not well visualized secondary to technical limitations. There is no tricuspid stenosis. No tricuspid regurgitation. Pulmonic Valve The pulmonic valve is not well visualized. Great Vessels The aortic root is not well visualized. The inferior vena cava appeared normal and decreased < 50% with respiration (RAP 10-15 mmHg). Effusions There is no pericardial effusion. : XAVIER CARRANZA > Camille Pollock
[2017-05-02] MEDS: FOLIC ACID/VITAMIN B COMP W-C CAPSULE PO SCH (18:10)
[2017-05-02] MEDS: CEFTRIAXONE SODIUM 1,000 MG in NORMAL SALINE 100 ML IV SCH (18:11)
[2017-05-03] MEDS: CIPROFLOXACIN HCL 0.3% OPH SOLN 2.5 ML OU SCH ×5 (00:52→23:43)
[2017-05-03] MEDS: ACETAMINOPHEN 325 MG TABLET PO PRN ×2 (02:43→19:33)
[2017-05-03] MEDS: HEPARIN SOD (PORCINE) 5,000 UNIT/ML 1 ML SYRINGE SUBCUT SCH ×3 (06:45→22:28)
[2017-05-03] MEDS: BENZONATATE 100 MG CAPSULE PO SCH ×3 (06:51→22:28)
[2017-05-03] MEDS: GUAIFENESIN 600 MG TABLET.SA PO SCH ×2 (06:51→18:31)
[2017-05-03] MEDS: HYDRALAZINE HCL 50 MG TABLET PO SCH ×3 (06:51→22:27)
[2017-05-03] MEDS: INSULIN LISPRO 100 UNIT/ML 3 ML VIAL SUBCUT SCH ×3 (07:52→16:41)
[2017-05-03] MEDS: CALCIUM ACETATE 667 MG CAPSULE PO SCH ×3 (07:52→16:41)
[2017-05-03] MEDS: INSULIN LISPRO 100 UNIT/ML 3 ML VIAL SUBCUT PRN ×4 (07:52→23:44)
[2017-05-03] MEDS: IPRATROPIUM/ALBUTEROL 0.5-2.5 MG/3 ML AMPUL NEB SCH ×3 (09:18→21:54)
[2017-05-03] MEDS: CARVEDILOL 12.5 MG TABLET PO SCH ×2 (09:30→22:27)
[2017-05-03] MEDS: PREGABALIN 75 MG CAPSULE PO SCH ×2 (09:30→22:28)
[2017-05-03] MEDS: POLYETHYLENE GLYCOL 3350 POWDER 17 GM/1 PACKET PO SCH (09:31)
[2017-05-03] MEDS: GENTAMICIN SULFATE 0.1% OINTMENT 15 GM TP SCH (09:31)
[2017-05-03] MEDS ORDERED: VANCOMYCIN HCL 1,500 MG in DEXTROSE 5%-WATER 250 ML IV SCH (10:00)
[2017-05-03] MEDS ORDERED: CEFEPIME 2 GM/D5W RTU 2 GM/50 ML RTUPB IV SCH (10:00)
--- NOTE | 2017-05-03 16:13 | PDOC PROGRESS REPORT ---
Subjective Progress Note for:: 05/03/17 Subjective:: Difficulty breathing and shortness of breath Reason For Visit: CHF EXACERBATION WITH BRONCHITIS Physical Exam Vital Signs: Temp Pulse Resp BP Pulse Ox 98.8 F 89 16 129/74 H 97 05/03/17 12:25 05/03/17 14:00 05/03/17 14:00 05/03/17 13:18 05/03/17 14:00 Intake & Output 05/02/17 05/03/17 05/04/17 06:59 06:59 06:59 Intake Total 24857 84497 5450 Output Total 89706 15508 5500 Balance -673 -878 -50 Weight 181.3 kg 176.3 kg 176.9 kg General appearance: PRESENT: no acute distress, morbidly obese Head exam: PRESENT: atraumatic Ear exam: PRESENT: normal external ear exam Neck exam: ABSENT: carotid bruit, JVD, lymphadenopathy, thyromegaly Respiratory exam: PRESENT: crackles, decreased breath sounds, rhonchi, unlabored Cardiovascular exam: PRESENT: RRR, +S1, +S2. ABSENT: diastolic murmur, rubs, systolic murmur Pulses: PRESENT: normal dorsalis pedis pul GI/Abdominal exam: PRESENT: normal bowel sounds, soft. ABSENT: distended, guarding, mass, organolmegaly, rebound, tenderness Rectal exam: PRESENT: deferred Extremities exam: PRESENT: +2 edema Neurological exam: PRESENT: alert, awake, oriented to time, oriented to situation Psychiatric exam: PRESENT: appropriate affect, normal mood. ABSENT: homicidal ideation, suicidal ideation Results Laboratory Results: 05/02/17 05:01 05/02/17 05:01 04/29/17 18:26 Abdominal Fluid Gram Stain - Final 04/29/17 18:26 Abdominal Fluid Body Fluid Culture - Final NO AEROBIC OR ANAEROBIC ORGANISMS RECOVERED 04/29/17 04/29/17 04/29/17 15:43 15:43 23:00 Creatine Kinase 1012 H 915 H CK-MB (CK-2) 6.58 H Troponin I 0.241 04/29/17 05/01/17 05/01/17 23:00 05:17 05:17 Creatine Kinase 477 H CK-MB (CK-2) 6.59 H 4.14 Troponin I 0.218 0.123 Impressions: Chest X-Ray 04/29/17 11:14 IMPRESSION: 1 As on the prior examination dated 04/26/2027, mild cardiomegaly and prominence of the pulmonary vasculature, suggesting vascular congestion. 2. Limited lung volumes. No acute pulmonary consolidation. Assessment & Plan - Diagnosis (1) Peritoneal dialysis status Is this a current diagnosis for this admission?: Yes (2) Leukocytosis Is this a current diagnosis for this admission?: Yes (3) Upper respiratory infection Qualifiers: Airway obstruction: without obstruction Is this a current diagnosis for this admission?: Yes (4) Acute congestive heart failure Is this a current diagnosis for this admission?: Yes Plan: Echo is reviewed. This is a diastolic dysfunction from the volume overload and not CHF. EF is grossly normal (5) ESRD (end stage renal disease) on dialysis Is this a current diagnosis for this admission?: Yes (6) Hypertensive urgency Is this a current diagnosis for this admission?: Yes Plan: Bp is controlled (7) Diabetes mellitus type 1 Qualifiers: Diabetes mellitus complication status: with kidney complications Diabetes mellitus complication detail: with chronic kidney disease Chronic kidney disease stage: on chronic dialysis Qualified Code(s): E10.22 - Type 1 diabetes mellitus with diabetic chronic kidney disease; N18.6 - End stage renal disease; N18.6 - End stage renal disease; N18.6 - End stage renal disease; N18.6 - End stage renal disease; Z99.2 - Dependence on renal dialysis; Z99.2 - Dependence on renal dialysis; Z99.2 - Dependence on renal dialysis; Z99.2 - Dependence on renal dialysis Is this a current diagnosis for this admission?: Yes Plan: improved (8) Elevated troponin level Is this a current diagnosis for this admission?: Yes Plan: Likely combination of hypertensive urgency and ESRD. No evidence of ACS. Will follow up on Echo - Time Time Spent with patient: 15-24 minutes Medications reviewed and adjusted accordingly: Yes Anticipated discharge: Home Within: within 72 hours
[2017-05-03] MEDS: FOLIC ACID/VITAMIN B COMP W-C CAPSULE PO SCH (16:41)
[2017-05-03] MEDS: CEFTRIAXONE SODIUM 1,000 MG in NORMAL SALINE 100 ML IV SCH (18:31)
[2017-05-03] MEDS: IPRATROPIUM/ALBUTEROL 0.5-2.5 MG/3 ML AMPUL NEB PRN (20:23)
--- NOTE | 2017-05-03 22:33 | PDOC PROGRESS REPORT ---
Subjective Progress Note for:: 05/03/17 Subjective:: Patient seems to be slowly improving except for her cough. He said between 4- 5PM that is when she starts coughing persistently but during other times she has not been coughing as much. Her peritoneal dialysis is going well when she has appropriate ultrafiltration. Blood pressure has also been controlled well. Reason For Visit: ESRD, CHF EXACERBATION WITH BRONCHITIS Physical Exam Vital Signs: Temp Pulse Resp BP Pulse Ox 97.9 F 90 18 153/89 H 100 05/03/17 16:18 05/03/17 20:23 05/03/17 20:23 05/03/17 16:18 05/03/17 20:23 Intake & Output 05/02/17 05/03/17 05/04/17 06:59 06:59 06:59 Intake Total 79115 50949 8500 Output Total 30691 62674 8300 Balance -673 -878 200 Weight 181.3 kg 176.3 kg 176.3 kg Exam: General appearance: PRESENT: no acute distress, cooperative, well-developed, well-nourished Head exam: PRESENT: atraumatic, normocephalic Eye exam: PRESENT: conjunctiva pale, PERRLA. ABSENT: scleral icterus Neck exam: ABSENT: JVD Respiratory exam: PRESENT: Normal breath sounds. ABSENT: crackles, rales, rhonchi, unlabored, wheezes Cardiovascular exam: PRESENT: Regular rate rhythm -+S1, +S2. ABSENT: diastolic murmur, systolic murmur GI/Abdominal exam: PRESENT: normal bowel sounds, soft. ABSENT: guarding, mass, tenderness Extremities exam: ABSENT: Trace bilateral lower extremity edema Neurological exam: PRESENT: alert, awake, oriented to person, place and time. Skin exam: PRESENT: dry, warm, Results Laboratory Results: 05/02/17 05:01 05/02/17 05:01 04/29/17 18:26 Abdominal Fluid Gram Stain - Final 04/29/17 18:26 Abdominal Fluid Body Fluid Culture - Final NO AEROBIC OR ANAEROBIC ORGANISMS RECOVERED 04/29/17 04/29/17 04/29/17 15:43 15:43 23:00 Creatine Kinase 1012 H 915 H CK-MB (CK-2) 6.58 H Troponin I 0.241 04/29/17 05/01/17 05/01/17 23:00 05:17 05:17 Creatine Kinase 477 H CK-MB (CK-2) 6.59 H 4.14 Troponin I 0.218 0.123 Impressions: Chest X-Ray 04/29/17 11:14 IMPRESSION: 1 As on the prior examination dated 04/26/2027, mild cardiomegaly and prominence of the pulmonary vasculature, suggesting vascular congestion. 2. Limited lung volumes. No acute pulmonary consolidation. Assessment & Plan - Diagnosis (1) Acute bronchitis Is this a current diagnosis for this admission?: Yes Plan: Viral versus bacterial infection. On IV antibiotics and Tessalon Perles and Mucinex which seemed to be helping. (2) ESRD (end stage renal disease) on dialysis Is this a current diagnosis for this admission?: Yes Plan: We will continue peritoneal dialysis by doing CAPD since we do not have the cycler machine here. She will do a fill volume of 2.5 L every 4 hours for a total of 6 exchanges in 24 hours. We will use 2.5% solution except if the systolic blood pressure is less than 120 then we need to use 1.5% diagonal solution. Continue daily exit site care. Follow aseptic technique always. Continue current regimen. (3) Leukocytosis Is this a current diagnosis for this admission?: Yes Plan: Due to possible acute bronchitis and upper respiratory tract infection. (4) Hypertension Qualifiers: Hypertension type: essential hypertension Qualified Code(s): I10 - Essential (primary) hypertension Is this a current diagnosis for this admission?: Yes Plan: Resume blood pressure medications. Ultrafiltration will help. Currently well controlled. (5) Anemia in chronic kidney disease (CKD) Qualifiers: Chronic kidney disease stage: on chronic dialysis Qualified Code(s): N18.6 - End stage renal disease; D63.1 - Anemia in chronic kidney disease; D63.1 - Anemia in chronic kidney disease; Z99.2 - Dependence on renal dialysis; Z99.2 - Dependence on renal dialysis; Z99.2 - Dependence on renal dialysis; Z99.2 - Dependence on renal dialysis Is this a current diagnosis for this admission?: Yes Plan: We gave Procrit 05/02. (6) Diabetes mellitus type 2 in obese Is this a current diagnosis for this admission?: Yes - Time Time with patient: 15-25 minutes
[2017-05-03] MEDS ORDERED: CYCLOBENZAPRINE HCL 10 MG TABLET PO ONE (23:15)
[2017-05-04] MEDS: ACETAMINOPHEN 325 MG TABLET PO PRN ×3 (04:10→22:09)
[2017-05-04] MEDS: HEPARIN SOD (PORCINE) 5,000 UNIT/ML 1 ML SYRINGE SUBCUT SCH ×3 (05:08→21:31)
[2017-05-04] MEDS: HYDRALAZINE HCL 50 MG TABLET PO SCH ×3 (05:08→21:31)
[2017-05-04] MEDS: GUAIFENESIN 600 MG TABLET.SA PO SCH ×2 (05:08→17:59)
[2017-05-04] MEDS: BENZONATATE 100 MG CAPSULE PO SCH ×3 (05:08→21:31)
[2017-05-04] MEDS: CIPROFLOXACIN HCL 0.3% OPH SOLN 2.5 ML OU SCH ×2 (05:09→12:19)
[2017-05-04 07:02] LABS: HEMATOCRIT 27.9 % (36.0-47.0); HEMOGLOBIN 8.9 g/dL (12.0-15.5); MEAN CORPUSCULAR HEMOGLOBIN 25.3 pg (27.0-33.4); MEAN CORPUSCULAR HGB CONC 31.7 g/dL (32.0-36.0); MEAN CORPUSCULAR VOLUME 80 fl (80-97); PLATELET COUNT 260 10^3/uL (150-450); RED BLOOD COUNT 3.51 10^6/uL (3.72-5.28); RED CELL DISTRIBUTION WIDTH 19.7 % (11.5-14.0); WHITE BLOOD COUNT 14.2 10^3/uL (4.0-10.5)
[2017-05-04 07:35] LABS: ABSOLUTE LYMPHOCYTES# (MANUAL) 2.4 10^3/uL (0.5-4.7); ABSOLUTE MONOCYTES # (MANUAL) 1.7 10^3/uL (0.1-1.4); ABSOLUTE NEUTROPHILS# (MANUAL) 9.9 10^3/uL (1.7-8.2); BAND NEUTROPHILS % (MANUAL) 6 % (3-5); BASOPHILS % (MANUAL) 0 % (0-2); EOSINOPHILS % (MANUAL) 1 % (0-6); LYMPHOCYTES % (MANUAL) 17 % (13-45); MONOCYTES % (MANUAL) 12 % (3-13); SEGMENTED NEUTROPHILS % (MAN) 64 % (42-78); TOTAL CELLS COUNTED 100
[2017-05-04 07:36] LABS: ANISOCYTOSIS 2+; PLATELET COMMENT ADEQUATE; TOXIC GRANULATION SLIGHT; TOXIC VACUOLATION PRESENT
[2017-05-04 07:47] LABS: BLOOD UREA NITROGEN 86 mg/dL (7-20); CALCIUM 10.4 mg/dL (8.4-10.2); GLUCOSE 172 mg/dL (75-110); POTASSIUM 4.3 mmol/L (3.6-5.0)
[2017-05-04 08:04] LABS: CARBON DIOXIDE 22 mmol/L (22-30); CHLORIDE 92 mmol/L (98-107); SODIUM 135.5 mmol/L (137-145)
[2017-05-04 08:12] LABS: ANION GAP 22 (5-19)
[2017-05-04] MEDS: IPRATROPIUM/ALBUTEROL 0.5-2.5 MG/3 ML AMPUL NEB SCH ×3 (08:30→20:29)
[2017-05-04] MEDS: CALCIUM ACETATE 667 MG CAPSULE PO SCH ×3 (08:47→16:51)
[2017-05-04] MEDS: INSULIN LISPRO 100 UNIT/ML 3 ML VIAL SUBCUT SCH ×3 (08:48→16:51)
[2017-05-04] MEDS: INSULIN LISPRO 100 UNIT/ML 3 ML VIAL SUBCUT PRN ×4 (08:50→22:08)
[2017-05-04] MEDS: CARVEDILOL 12.5 MG TABLET PO SCH ×2 (09:24→21:30)
[2017-05-04] MEDS: PREGABALIN 75 MG CAPSULE PO SCH ×2 (09:24→21:31)
[2017-05-04] MEDS: GENTAMICIN SULFATE 0.1% OINTMENT 15 GM TP SCH (09:25)
[2017-05-04] MEDS: POLYETHYLENE GLYCOL 3350 POWDER 17 GM/1 PACKET PO SCH (09:25)
[2017-05-04] MEDS: FOLIC ACID/VITAMIN B COMP W-C CAPSULE PO SCH (15:14)
--- NOTE | 2017-05-04 16:03 | PDOC PROGRESS REPORT ---
Subjective Progress Note for:: 05/04/17 Subjective:: Difficulty breathing and shortness of breath Reason For Visit: CHF EXACERBATION WITH BRONCHITIS Physical Exam Vital Signs: Temp Pulse Resp BP Pulse Ox 97.8 F 82 16 112/67 95 05/04/17 12:22 05/04/17 14:32 05/04/17 14:32 05/04/17 12:22 05/04/17 14:32 Intake & Output 05/03/17 05/04/17 05/05/17 06:59 06:59 06:59 Intake Total 49193 45942 200 Output Total 47375 98580 Balance -878 370 200 Weight 176.3 kg 176.3 kg General appearance: PRESENT: no acute distress, morbidly obese Head exam: PRESENT: atraumatic, normocephalic Ear exam: PRESENT: normal external ear exam Respiratory exam: PRESENT: clear to auscultation shira, rhonchi. ABSENT: rales, tachypnea, wheezes Cardiovascular exam: PRESENT: RRR. ABSENT: diastolic murmur, rubs, systolic murmur GI/Abdominal exam: PRESENT: normal bowel sounds, soft. ABSENT: distended, guarding, mass, organolmegaly, rebound, tenderness Extremities exam: PRESENT: full ROM, +2 edema. ABSENT: calf tenderness Musculoskeletal exam: PRESENT: ambulatory Neurological exam: PRESENT: alert, awake, oriented to person, oriented to place , oriented to time, oriented to situation, CN II-XII grossly intact. ABSENT: motor sensory deficit Psychiatric exam: PRESENT: appropriate affect, normal mood. ABSENT: homicidal ideation, suicidal ideation Results Laboratory Results: 05/04/17 05:40 05/04/17 05:40 05/04/17 05/04/17 05:40 05:40 WBC 14.2 H RBC 3.51 L Hgb 8.9 L Hct 27.9 L MCV 80 MCH 25.3 L MCHC 31.7 L RDW 19.7 H Plt Count 260 Seg Neutrophils % Not Reportable Lymphocytes % Not Reportable Monocytes % Not Reportable Eosinophils % Not Reportable Basophils % Not Reportable Absolute Neutrophils Not Reportable Absolute Lymphocytes Not Reportable Absolute Monocytes Not Reportable Absolute Eosinophils Not Reportable Absolute Basophils Not Reportable Sodium 135.5 L Potassium 4.3 Chloride 92 L Carbon Dioxide 22 Anion Gap 22 H BUN 86 H Creatinine 17.93 H Est GFR ( Amer) 3 L Est GFR (Non-Af Amer) 2 L Glucose 172 H Calcium 10.4 H 04/29/17 15:43 Blood Blood Culture - Final NO GROWTH IN 5 DAYS 04/29/17 04/29/17 04/29/17 15:43 15:43 23:00 Creatine Kinase 1012 H 915 H CK-MB (CK-2) 6.58 H Troponin I 0.241 04/29/17 05/01/17 05/01/17 23:00 05:17 05:17 Creatine Kinase 477 H CK-MB (CK-2) 6.59 H 4.14 Troponin I 0.218 0.123 Impressions: Chest X-Ray 04/29/17 11:14 IMPRESSION: 1 As on the prior examination dated 04/26/2027, mild cardiomegaly and prominence of the pulmonary vasculature, suggesting vascular congestion. 2. Limited lung volumes. No acute pulmonary consolidation. Assessment & Plan - Diagnosis (1) Peritoneal dialysis status Is this a current diagnosis for this admission?: Yes Plan: Continue peritoneal dialysis as per nephrology (2) Leukocytosis Is this a current diagnosis for this admission?: Yes Plan: secondary to sepsis, slowly improving (3) Upper respiratory infection Qualifiers: Airway obstruction: without obstruction Is this a current diagnosis for this admission?: Yes Plan: Continue Ceftriaxone (4) Acute congestive heart failure Is this a current diagnosis for this admission?: Yes Plan: Acute diastolic dysfunction from the volume overload. EF is grossly normal (5) ESRD (end stage renal disease) on dialysis Is this a current diagnosis for this admission?: Yes Plan: Continue PD as per Nephrology (6) Hypertensive urgency Is this a current diagnosis for this admission?: Yes Plan: Bp is controlled adjust meds as needed (7) Diabetes mellitus type 1 Qualifiers: Diabetes mellitus complication status: with kidney complications Diabetes mellitus complication detail: with chronic kidney disease Chronic kidney disease stage: on chronic dialysis Qualified Code(s): E10.22 - Type 1 diabetes mellitus with diabetic chronic kidney disease; N18.6 - End stage renal disease; N18.6 - End stage renal disease; N18.6 - End stage renal disease; N18.6 - End stage renal disease; Z99.2 - Dependence on renal dialysis; Z99.2 - Dependence on renal dialysis; Z99.2 - Dependence on renal dialysis; Z99.2 - Dependence on renal dialysis Is this a current diagnosis for this admission?: Yes (8) Elevated troponin level Is this a current diagnosis for this admission?: Yes Plan: Likely combination of hypertensive urgency and ESRD. No evidence of ACS.
[2017-05-04] MEDS: CEFTRIAXONE SODIUM 1,000 MG in NORMAL SALINE 100 ML IV SCH (17:03)
[2017-05-05] MEDS: HYDRALAZINE HCL 50 MG TABLET PO SCH ×3 (06:22→22:47)
[2017-05-05] MEDS: BENZONATATE 100 MG CAPSULE PO SCH ×3 (06:23→22:48)
[2017-05-05] MEDS: HEPARIN SOD (PORCINE) 5,000 UNIT/ML 1 ML SYRINGE SUBCUT SCH ×3 (06:23→22:48)
[2017-05-05] MEDS: GUAIFENESIN 600 MG TABLET.SA PO SCH ×2 (06:23→17:00)
[2017-05-05] MEDS: IPRATROPIUM/ALBUTEROL 0.5-2.5 MG/3 ML AMPUL NEB PRN ×2 (06:32→16:11)
[2017-05-05] MEDS: INSULIN LISPRO 100 UNIT/ML 3 ML VIAL SUBCUT SCH ×3 (07:38→16:17)
[2017-05-05] MEDS: INSULIN LISPRO 100 UNIT/ML 3 ML VIAL SUBCUT PRN ×4 (07:38→22:48)
[2017-05-05] MEDS: CALCIUM ACETATE 667 MG CAPSULE PO SCH ×3 (07:42→16:15)
[2017-05-05] MEDS: IPRATROPIUM/ALBUTEROL 0.5-2.5 MG/3 ML AMPUL NEB SCH ×3 (08:48→20:09)
[2017-05-05] MEDS: PREGABALIN 75 MG CAPSULE PO SCH ×2 (11:25→22:54)
[2017-05-05] MEDS: CYCLOBENZAPRINE HCL 10 MG TABLET PO PRN ×2 (11:25→22:48)
[2017-05-05] MEDS: CARVEDILOL 12.5 MG TABLET PO SCH ×2 (11:25→22:48)
[2017-05-05] MEDS: GENTAMICIN SULFATE 0.1% OINTMENT 15 GM TP SCH (11:26)
[2017-05-05] MEDS: POLYETHYLENE GLYCOL 3350 POWDER 17 GM/1 PACKET PO SCH (11:26)
--- NOTE | 2017-05-05 11:27 | PDOC PROGRESS REPORT ---
Subjective Progress Note for:: 05/05/17 Subjective:: Difficulty breathing and shortness of breath Reason For Visit: CHF EXACERBATION WITH BRONCHITIS Physical Exam Vital Signs: Temp Pulse Resp BP Pulse Ox 97.9 F 84 16 152/94 H 93 05/05/17 07:55 05/05/17 08:48 05/05/17 08:48 05/05/17 07:55 05/05/17 08:48 Intake & Output 05/04/17 05/05/17 05/06/17 06:59 06:59 06:59 Intake Total 61715 56399 Output Total 65458 91434 Balance 370 -927 Weight 176.3 kg 180 kg General appearance: PRESENT: no acute distress Head exam: PRESENT: atraumatic Ear exam: PRESENT: normal external ear exam Neck exam: ABSENT: carotid bruit, JVD, lymphadenopathy, thyromegaly Respiratory exam: PRESENT: rhonchi, unlabored. ABSENT: tachypnea, wheezes Cardiovascular exam: PRESENT: RRR. ABSENT: diastolic murmur, rubs, systolic murmur GI/Abdominal exam: PRESENT: normal bowel sounds, soft. ABSENT: distended, guarding, mass, organolmegaly, rebound, tenderness Rectal exam: PRESENT: deferred Extremities exam: PRESENT: full ROM, pedal edema, +2 edema. ABSENT: calf tenderness, clubbing Neurological exam: PRESENT: alert, awake, oriented to person, oriented to place , oriented to time, oriented to situation, CN II-XII grossly intact. ABSENT: motor sensory deficit Psychiatric exam: PRESENT: appropriate affect, normal mood. ABSENT: homicidal ideation, suicidal ideation Skin exam: PRESENT: dry, intact, warm. ABSENT: cyanosis, rash Results Laboratory Results: 05/04/17 05:40 05/04/17 05:40 04/29/17 15:43 Blood Blood Culture - Final NO GROWTH IN 5 DAYS 04/29/17 04/29/17 04/29/17 15:43 15:43 23:00 Creatine Kinase 1012 H 915 H CK-MB (CK-2) 6.58 H Troponin I 0.241 04/29/17 05/01/17 05/01/17 23:00 05:17 05:17 Creatine Kinase 477 H CK-MB (CK-2) 6.59 H 4.14 Troponin I 0.218 0.123 Impressions: Chest X-Ray 04/29/17 11:14 IMPRESSION: 1 As on the prior examination dated 04/26/2027, mild cardiomegaly and prominence of the pulmonary vasculature, suggesting vascular congestion. 2. Limited lung volumes. No acute pulmonary consolidation. Assessment & Plan - Diagnosis (1) Peritoneal dialysis status Is this a current diagnosis for this admission?: Yes Plan: Continue peritoneal dialysis as per nephrology (2) Leukocytosis Is this a current diagnosis for this admission?: Yes Plan: secondary to sepsis, improving (3) Upper respiratory infection Qualifiers: Airway obstruction: without obstruction Is this a current diagnosis for this admission?: Yes Plan: Continue Ceftriaxone (4) Acute congestive heart failure Is this a current diagnosis for this admission?: Yes Plan: Acute diastolic dysfunction from the peripheral vascular congestion EF is grossly normal (5) ESRD (end stage renal disease) on dialysis Is this a current diagnosis for this admission?: Yes Plan: Continue PD as per Nephrology (6) Hypertensive urgency Is this a current diagnosis for this admission?: Yes Plan: Bp is controlled adjust meds as needed (7) Diabetes mellitus type 1 Qualifiers: Diabetes mellitus complication status: with kidney complications Diabetes mellitus complication detail: with chronic kidney disease Chronic kidney disease stage: on chronic dialysis Qualified Code(s): E10.22 - Type 1 diabetes mellitus with diabetic chronic kidney disease; N18.6 - End stage renal disease; N18.6 - End stage renal disease; N18.6 - End stage renal disease; N18.6 - End stage renal disease; Z99.2 - Dependence on renal dialysis; Z99.2 - Dependence on renal dialysis; Z99.2 - Dependence on renal dialysis; Z99.2 - Dependence on renal dialysis Is this a current diagnosis for this admission?: Yes Plan: improved (8) Elevated troponin level Is this a current diagnosis for this admission?: Yes Plan: Likely combination of hypertensive urgency and ESRD. No evidence of ACS. - Time Time Spent with patient: 15-24 minutes Medications reviewed and adjusted accordingly: Yes Anticipated discharge: Home Within: within 48 hours
[2017-05-05] MEDS ORDERED: LORATADINE/PSEUDOEPHEDRINE SUL 10-240 MG TAB.SR.24H PO ONE (12:00)
[2017-05-05] MEDS: FOLIC ACID/VITAMIN B COMP W-C CAPSULE PO SCH (15:35)
[2017-05-05] MEDS: CEFTRIAXONE SODIUM 1,000 MG in NORMAL SALINE 100 ML IV SCH (17:00)
[2017-05-06] MEDS: IPRATROPIUM/ALBUTEROL 0.5-2.5 MG/3 ML AMPUL NEB PRN ×2 (03:02→20:46)
[2017-05-06] MEDS: HYDRALAZINE HCL 50 MG TABLET PO SCH ×3 (06:15→21:49)
[2017-05-06] MEDS: GUAIFENESIN 600 MG TABLET.SA PO SCH ×2 (06:17→17:24)
[2017-05-06] MEDS: HEPARIN SOD (PORCINE) 5,000 UNIT/ML 1 ML SYRINGE SUBCUT SCH ×3 (06:18→21:49)
[2017-05-06] MEDS: BENZONATATE 100 MG CAPSULE PO SCH ×3 (06:18→21:49)
[2017-05-06 06:28] LABS: HEMATOCRIT 28.1 % (36.0-47.0); HEMOGLOBIN 8.8 g/dL (12.0-15.5); MEAN CORPUSCULAR HEMOGLOBIN 25.1 pg (27.0-33.4); MEAN CORPUSCULAR HGB CONC 31.4 g/dL (32.0-36.0); MEAN CORPUSCULAR VOLUME 80 fl (80-97); PLATELET COUNT 260 10^3/uL (150-450); RED BLOOD COUNT 3.52 10^6/uL (3.72-5.28); WHITE BLOOD COUNT 11.8 10^3/uL (4.0-10.5)
[2017-05-06 06:43] LABS: BLOOD UREA NITROGEN 87 mg/dL (7-20); CALCIUM 10.4 mg/dL (8.4-10.2); GLUCOSE 189 mg/dL (75-110); POTASSIUM 4.4 mmol/L (3.6-5.0)
[2017-05-06 06:49] LABS: CARBON DIOXIDE 22 mmol/L (22-30); CHLORIDE 89 mmol/L (98-107); SODIUM 132.5 mmol/L (137-145)
[2017-05-06 07:02] LABS: ABSOLUTE LYMPHOCYTES# (MANUAL) 2.6 10^3/uL (0.5-4.7); ABSOLUTE MONOCYTES # (MANUAL) 1.9 10^3/uL (0.1-1.4); ABSOLUTE NEUTROPHILS# (MANUAL) 7.2 10^3/uL (1.7-8.2); BAND NEUTROPHILS % (MANUAL) 2 % (3-5); BASOPHILS % (MANUAL) 0 % (0-2); EOSINOPHILS % (MANUAL) 1 % (0-6); LYMPHOCYTES % (MANUAL) 22 % (13-45); METAMYELOCYTES % (MANUAL) 1 % (0); MONOCYTES % (MANUAL) 16 % (3-13); SEGMENTED NEUTROPHILS % (MAN) 58 % (42-78); TOTAL CELLS COUNTED 100
[2017-05-06 07:03] LABS: ANION GAP 22 (5-19)
[2017-05-06 07:04] LABS: ANISOCYTOSIS 2+; POIKILOCYTOSIS SLIGHT; SCHISTOCYTES 1+; TOXIC GRANULATION 1+; TOXIC VACUOLATION PRESENT
[2017-05-06 07:05] LABS: PLATELET COMMENT ADEQUATE; PLATELET LARGE PRESENT
[2017-05-06] MEDS: INSULIN LISPRO 100 UNIT/ML 3 ML VIAL SUBCUT SCH ×3 (07:59→17:24)
[2017-05-06] MEDS: INSULIN LISPRO 100 UNIT/ML 3 ML VIAL SUBCUT PRN ×4 (07:59→21:58)
[2017-05-06] MEDS: CALCIUM ACETATE 667 MG CAPSULE PO SCH ×3 (07:59→17:24)
[2017-05-06] MEDS: IPRATROPIUM/ALBUTEROL 0.5-2.5 MG/3 ML AMPUL NEB SCH ×3 (08:25→20:50)
[2017-05-06] MEDS: POLYETHYLENE GLYCOL 3350 POWDER 17 GM/1 PACKET PO SCH (09:54)
[2017-05-06] MEDS: LORATADINE/PSEUDOEPHEDRINE SUL 10-240 MG TAB.SR.24H PO SCH (09:54)
[2017-05-06] MEDS: CARVEDILOL 12.5 MG TABLET PO SCH ×2 (09:54→21:48)
[2017-05-06] MEDS: CYCLOBENZAPRINE HCL 10 MG TABLET PO PRN ×2 (09:54→21:49)
[2017-05-06] MEDS: GENTAMICIN SULFATE 0.1% OINTMENT 15 GM TP SCH (09:54)
[2017-05-06] MEDS: PREGABALIN 75 MG CAPSULE PO SCH ×2 (09:54→21:49)
--- NOTE | 2017-05-06 12:37 | PDOC PROGRESS REPORT ---
Subjective Progress Note for:: 05/06/17 Subjective:: Difficulty breathing and shortness of breath Reason For Visit: Pulmonary Vascular Congestion WITH BRONCHITIS Physical Exam Vital Signs: Temp Pulse Resp BP Pulse Ox 98.0 F 92 18 161/87 H 92 05/06/17 07:17 05/06/17 08:25 05/06/17 08:25 05/06/17 07:17 05/06/17 08:25 Intake & Output 05/05/17 05/06/17 05/07/17 06:59 06:59 06:59 Intake Total 07884 46129 Output Total 17462 42520 Balance -927 64 Weight 180 kg 80.195 kg General appearance: PRESENT: no acute distress Head exam: PRESENT: atraumatic Eye exam: PRESENT: conjunctiva pink, EOMI, PERRLA. ABSENT: scleral icterus Neck exam: PRESENT: carotid bruit Respiratory exam: PRESENT: clear to auscultation shira, unlabored. ABSENT: rales , rhonchi, tachypnea, wheezes Cardiovascular exam: PRESENT: RRR. ABSENT: diastolic murmur, rubs, systolic murmur Pulses: PRESENT: normal dorsalis pedis pul GI/Abdominal exam: PRESENT: normal bowel sounds, soft, other - PD catheter in place. ABSENT: distended, guarding, mass, organolmegaly, rebound, tenderness Rectal exam: PRESENT: deferred Extremities exam: PRESENT: full ROM, +2 edema. ABSENT: calf tenderness, clubbing, pedal edema Neurological exam: PRESENT: alert, awake, oriented to person, oriented to place , oriented to time, oriented to situation, CN II-XII grossly intact. ABSENT: motor sensory deficit Psychiatric exam: PRESENT: appropriate affect, normal mood. ABSENT: homicidal ideation, suicidal ideation Results Laboratory Results: 05/06/17 05:20 05/06/17 05:20 05/06/17 05/06/17 05:20 05:20 WBC 11.8 H RBC 3.52 L Hgb 8.8 L Hct 28.1 L MCV 80 MCH 25.1 L MCHC 31.4 L RDW 20.0 H Plt Count 260 Seg Neutrophils % Not Reportable Lymphocytes % Not Reportable Monocytes % Not Reportable Eosinophils % Not Reportable Basophils % Not Reportable Absolute Neutrophils Not Reportable Absolute Lymphocytes Not Reportable Absolute Monocytes Not Reportable Absolute Eosinophils Not Reportable Absolute Basophils Not Reportable Sodium 132.5 L Potassium 4.4 Chloride 89 L Carbon Dioxide 22 Anion Gap 22 H BUN 87 H Creatinine 17.23 H Est GFR ( Amer) 3 L Est GFR (Non-Af Amer) 2 L Glucose 189 H Calcium 10.4 H 04/29/17 04/29/17 04/29/17 15:43 15:43 23:00 Creatine Kinase 1012 H 915 H CK-MB (CK-2) 6.58 H Troponin I 0.241 04/29/17 05/01/17 05/01/17 23:00 05:17 05:17 Creatine Kinase 477 H CK-MB (CK-2) 6.59 H 4.14 Troponin I 0.218 0.123 Impressions: Chest X-Ray 04/29/17 11:14 IMPRESSION: 1 As on the prior examination dated 04/26/2027, mild cardiomegaly and prominence of the pulmonary vasculature, suggesting vascular congestion. 2. Limited lung volumes. No acute pulmonary consolidation. Assessment & Plan - Diagnosis (1) Upper respiratory infection Qualifiers: Airway obstruction: without obstruction Is this a current diagnosis for this admission?: Yes Plan: Continue Ceftriaxone, can change to PO if still needed in am (2) Peritoneal dialysis status Is this a current diagnosis for this admission?: Yes Plan: Continue peritoneal dialysis as per nephrology (3) Leukocytosis Is this a current diagnosis for this admission?: Yes (4) Acute congestive heart failure Is this a current diagnosis for this admission?: Yes (5) ESRD (end stage renal disease) on dialysis Is this a current diagnosis for this admission?: Yes (6) Hypertensive urgency Is this a current diagnosis for this admission?: Yes Plan: Bp is controlled adjust meds as needed (7) Diabetes mellitus type 1 Qualifiers: Diabetes mellitus complication status: with kidney complications Diabetes mellitus complication detail: with chronic kidney disease Chronic kidney disease stage: on chronic dialysis Qualified Code(s): E10.22 - Type 1 diabetes mellitus with diabetic chronic kidney disease; N18.6 - End stage renal disease; N18.6 - End stage renal disease; N18.6 - End stage renal disease; N18.6 - End stage renal disease; Z99.2 - Dependence on renal dialysis; Z99.2 - Dependence on renal dialysis; Z99.2 - Dependence on renal dialysis; Z99.2 - Dependence on renal dialysis Is this a current diagnosis for this admission?: Yes Plan: improved (8) Elevated troponin level Is this a current diagnosis for this admission?: Yes Plan: Likely combination of hypertensive urgency and ESRD. No evidence of ACS. - Time Time Spent with patient: 15-24 minutes Anticipated discharge: Home Within: within 24 hours - Plan Summary Plan Summary: Ambulate and plan to dc home in am
[2017-05-06] MEDS: FOLIC ACID/VITAMIN B COMP W-C CAPSULE PO SCH (15:28)
[2017-05-06] MEDS: CEFTRIAXONE SODIUM 1,000 MG in NORMAL SALINE 100 ML IV SCH (17:25)
[2017-05-06] MEDS: ACETAMINOPHEN 325 MG TABLET PO PRN (17:40)
--- NOTE | 2017-05-06 18:11 | PDOC PROGRESS REPORT ---
Subjective Progress Note for:: 05/06/17 Subjective:: Patient continues to improve in terms of her respiratory symptoms. She is coughing much less than last week. Over the weekend we changed her peritoneal dialysis regimen because she is complaining that she is unable to sleep because of the frequency. So I decrease the number of exchanges to 5 exchanges a day. Today she is complaining that she has increased swelling over the weekend. This may be a result of decrease number of exchanges. Other than that she denies any shortness of breath no other new complaints. She is eating good. Today she is able to walk around the hallway with a walker. Reason For Visit: ESRD, CHF EXACERBATION, BRONCHITIS Physical Exam Vital Signs: Temp Pulse Resp BP Pulse Ox 97.9 F 89 18 143/85 H 93 05/06/17 15:26 05/06/17 15:26 05/06/17 15:26 05/06/17 15:26 05/06/17 15:26 Intake & Output 05/05/17 05/06/17 05/07/17 06:59 06:59 06:59 Intake Total 92361 50342 5000 Output Total 09738 46648 5800 Balance -927 64 -800 Weight 180 kg 80.195 kg 180.2 kg Exam: General appearance: PRESENT: no acute distress, cooperative, well-developed, well-nourished Head exam: PRESENT: atraumatic, normocephalic Eye exam: PRESENT: conjunctiva pale, PERRLA. ABSENT: scleral icterus Neck exam: ABSENT: JVD Respiratory exam: PRESENT: Normal breath sounds. ABSENT: crackles, rales, rhonchi, unlabored, wheezes Cardiovascular exam: PRESENT: Regular rate rhythm -+S1, +S2. ABSENT: diastolic murmur, systolic murmur GI/Abdominal exam: PRESENT: normal bowel sounds, soft. ABSENT: guarding, mass, tenderness Extremities exam: Increased bilateral lower extremity pitting edema Neurological exam: PRESENT: alert, awake, oriented to person, place and time. Skin exam: PRESENT: dry, warm, Results Laboratory Results: 05/06/17 05:20 05/06/17 05:20 05/06/17 05/06/17 05:20 05:20 WBC 11.8 H RBC 3.52 L Hgb 8.8 L Hct 28.1 L MCV 80 MCH 25.1 L MCHC 31.4 L RDW 20.0 H Plt Count 260 Seg Neutrophils % Not Reportable Lymphocytes % Not Reportable Monocytes % Not Reportable Eosinophils % Not Reportable Basophils % Not Reportable Absolute Neutrophils Not Reportable Absolute Lymphocytes Not Reportable Absolute Monocytes Not Reportable Absolute Eosinophils Not Reportable Absolute Basophils Not Reportable Sodium 132.5 L Potassium 4.4 Chloride 89 L Carbon Dioxide 22 Anion Gap 22 H BUN 87 H Creatinine 17.23 H Est GFR ( Amer) 3 L Est GFR (Non-Af Amer) 2 L Glucose 189 H Calcium 10.4 H 04/29/17 04/29/17 04/29/17 15:43 15:43 23:00 Creatine Kinase 1012 H 915 H CK-MB (CK-2) 6.58 H Troponin I 0.241 04/29/17 05/01/17 05/01/17 23:00 05:17 05:17 Creatine Kinase 477 H CK-MB (CK-2) 6.59 H 4.14 Troponin I 0.218 0.123 Impressions: Chest X-Ray 04/29/17 11:14 IMPRESSION: 1 As on the prior examination dated 04/26/2027, mild cardiomegaly and prominence of the pulmonary vasculature, suggesting vascular congestion. 2. Limited lung volumes. No acute pulmonary consolidation. Assessment & Plan - Diagnosis (1) Acute bronchitis Is this a current diagnosis for this admission?: Yes Plan: Clinically improved. Also with improved leukocytosis. (2) ESRD (end stage renal disease) on dialysis Is this a current diagnosis for this admission?: Yes Plan: We will continue peritoneal dialysis by doing CAPD since we do not have the cycler machine here. Change CAPD regimen as follow: Continue to use 2.5 L fill volume, doing 5 exchanges with the following schedule at 6 AM, 10 AM, 2 PM, 6 PM , and 12 midnight. We will change the solution to use alternating 4.25% alternating with 2.5% unless the systolic blood pressure is less than 120 to use 1.5%. Daily weights. Use a septic technique. Discussed the change with her nurse today. (3) Leukocytosis Is this a current diagnosis for this admission?: Yes Plan: Improving. (4) Hypertension Qualifiers: Hypertension type: essential hypertension Qualified Code(s): I10 - Essential (primary) hypertension Is this a current diagnosis for this admission?: Yes Plan: Resume blood pressure medications. Ultrafiltration will help. Currently well controlled. (5) Anemia in chronic kidney disease (CKD) Qualifiers: Chronic kidney disease stage: on chronic dialysis Qualified Code(s): N18.6 - End stage renal disease; D63.1 - Anemia in chronic kidney disease; D63.1 - Anemia in chronic kidney disease; Z99.2 - Dependence on renal dialysis; Z99.2 - Dependence on renal dialysis; Z99.2 - Dependence on renal dialysis; Z99.2 - Dependence on renal dialysis Is this a current diagnosis for this admission?: Yes Plan: We gave Procrit 05/02. (6) Diabetes mellitus type 2 in obese Is this a current diagnosis for this admission?: Yes (7) Hyponatremia Is this a current diagnosis for this admission?: Yes Plan: Likely secondary to increasing fluid retention. - Time Time with patient: 15-25 minutes
[2017-05-07] MEDS: IPRATROPIUM/ALBUTEROL 0.5-2.5 MG/3 ML AMPUL NEB PRN (04:58)
[2017-05-07] MEDS: BENZONATATE 100 MG CAPSULE PO SCH ×2 (05:58→14:16)
[2017-05-07] MEDS: HEPARIN SOD (PORCINE) 5,000 UNIT/ML 1 ML SYRINGE SUBCUT SCH ×2 (05:58→14:18)
[2017-05-07] MEDS: GUAIFENESIN 600 MG TABLET.SA PO SCH (05:58)
[2017-05-07] MEDS: HYDRALAZINE HCL 50 MG TABLET PO SCH ×2 (05:58→14:18)
[2017-05-07] MEDS: IPRATROPIUM/ALBUTEROL 0.5-2.5 MG/3 ML AMPUL NEB SCH ×2 (08:42→14:13)
[2017-05-07] MEDS: CALCIUM ACETATE 667 MG CAPSULE PO SCH ×2 (08:49→12:02)
[2017-05-07] MEDS: INSULIN LISPRO 100 UNIT/ML 3 ML VIAL SUBCUT SCH ×2 (08:57→12:04)
[2017-05-07] MEDS: INSULIN LISPRO 100 UNIT/ML 3 ML VIAL SUBCUT PRN ×2 (08:58→12:05)
[2017-05-07] MEDS: PREGABALIN 75 MG CAPSULE PO SCH (09:00)
[2017-05-07] MEDS: LORATADINE/PSEUDOEPHEDRINE SUL 10-240 MG TAB.SR.24H PO SCH (09:00)
[2017-05-07] MEDS: CARVEDILOL 12.5 MG TABLET PO SCH (09:00)
[2017-05-07] MEDS: POLYETHYLENE GLYCOL 3350 POWDER 17 GM/1 PACKET PO SCH (09:00)
[2017-05-07 11:33] VITALS: BP 134/93
[2017-05-07] MEDS: GENTAMICIN SULFATE 0.1% OINTMENT 15 GM TP SCH (12:03)
[2017-05-07] MEDS ORDERED: CEFTRIAXONE SODIUM 1,000 MG in NORMAL SALINE 100 ML IV ONE (14:00)
--- NOTE | 2017-05-07 19:36 | PDOC DISCHARGE SUMMARY ---
General - Admit/Disc Date/PCP Admission Date/Primary Care Provider: 04/29/17 14:37 JULIA GOMEZ PA-C Discharge Date: 05/07/17 - Discharge Diagnosis (1) Upper respiratory infection Is this a current diagnosis for this admission?: Yes (2) Peritoneal dialysis status Is this a current diagnosis for this admission?: Yes (3) Leukocytosis Is this a current diagnosis for this admission?: Yes (4) Acute congestive heart failure Is this a current diagnosis for this admission?: Yes Summary: Diastolic dysfunction likely secondary to pulmonary vascular congestion from renal failure (5) ESRD (end stage renal disease) on dialysis Is this a current diagnosis for this admission?: Yes (6) Hypertensive urgency Is this a current diagnosis for this admission?: Yes (7) Diabetes mellitus type 1 Is this a current diagnosis for this admission?: Yes (8) Elevated troponin level Is this a current diagnosis for this admission?: Yes - Additional Information Resuscitation Status: Full Code Discharge Diet: Cardiac, Diabetic Discharge Activity: Activity As Tolerated Prescriptions: Cefuroxime Axetil [Ceftin 250 mg Tablet] 1 tab PO BID #6 tablet Home Medications: Carvedilol [Coreg 25 mg Tablet] 25 mg PO Q12 04/29/17 Hydralazine HCl 100 mg PO Q8 04/29/17 Insulin Glargine,Hum.rec.anlog [Toujeo Solostar] 22 units SQ QHS 04/29/17 Insulin Lispro [Humalog Kwikpen U-100] 5 units SQ MEALS 04/29/17 Polyethylene Glycol 3350 [Miralax Powder 17 gm/Packet] 17 gm PO DAILY 04/29/17 Pregabalin [Lyrica 75 mg Capsule] 75 mg PO Q12 04/29/17 Benzonatate [Tessalon Perles 100 mg Capsule] 100 mg PO Q8 capsule 05/07/17 Calcium Acetate [Phoslo 667 mg Capsule] 667 mg PO MEALS capsule 05/07/17 Cefuroxime Axetil [Ceftin 250 mg Tablet] 1 tab PO BID #6 tablet 05/07/17 Folic Acid/Vitamin B Comp W-C [Nephrocaps Multiple Vitamin Capsule] 1 cap PO ACSUPPER capsule 05/07/17 Guaifenesin [Mucinex Sr 600 mg Tablet.sa] 600 mg PO Q12A tablet.sa 05/07/17 Loratadine/Pseudoephedrine Sul [Claritin-D 24 Hour Tablet] 1 tab PO DAILY tab.sr.24h 05/07/17 History of Present Illness Patient complains of: This patient was admitted with difficulty breathing and shortness of breath and she was also found to have a slightly elevated cardiac enzyme. Her initial blood pressure was also pretty high with a systolic greater than 200. History of Present Illness: JASPREET STAFFORD is a 51 year old female Hospital Course Hospital Course: This patient was admitted with difficulty breathing and shortness of breath and she was also found to have a slightly elevated cardiac enzyme. Her initial blood pressure was also pretty high with a systolic greater than 200. She was admitted to telemetry floor for monitoring. She was found to have an upper respiratory tract infection and in fact cultures were positive for haemophilus influenza. Patient received ceftriaxone intravenously and she has continued to make progress while in hospital. She received bronchodilators. She had also received peritoneal dialysis after consultation with the roads supervisor. Elevated troponin was felt to be secondary to acute respiratory illness secondary to demand ischemia and acute coronary syndrome was ruled out Echocardiogram done revealed left ventricular systolic function that was normal and grade 3 or moderate diastolic dysfunction. Her hospital course was prolonged due to slow progress but patient has steadily improved and at this point it is felt that she can be discharged home for outpatient management. Physical Exam Vital Signs: Temp Pulse Resp BP Pulse Ox 98.0 F 97 18 134/93 H 96 05/07/17 15:18 05/07/17 15:18 05/07/17 15:18 05/07/17 10:06 05/07/17 15:18 Intake & Output 05/06/17 05/07/17 05/08/17 06:59 06:59 06:59 Intake Total 63082 52103 2500 Output Total 82122 35370 3500 Balance 64 -704 -1000 Weight 80.195 kg 180.2 kg General appearance: PRESENT: no acute distress, well-developed, well-nourished Head exam: PRESENT: atraumatic, normocephalic Eye exam: PRESENT: conjunctiva pink, EOMI, PERRLA. ABSENT: scleral icterus Ear exam: PRESENT: normal external ear exam Mouth exam: PRESENT: moist, tongue midline Neck exam: ABSENT: carotid bruit, JVD, lymphadenopathy, thyromegaly Respiratory exam: PRESENT: clear to auscultation shira. ABSENT: rales, rhonchi, wheezes Cardiovascular exam: PRESENT: RRR. ABSENT: diastolic murmur, rubs, systolic murmur Pulses: PRESENT: normal dorsalis pedis pul Vascular exam: PRESENT: normal capillary refill GI/Abdominal exam: PRESENT: normal bowel sounds, soft. ABSENT: distended, guarding, mass, organolmegaly, rebound, tenderness Rectal exam: PRESENT: deferred Extremities exam: PRESENT: full ROM, pedal edema, +2 edema. ABSENT: calf tenderness, clubbing Neurological exam: PRESENT: alert, awake, oriented to person, oriented to place , oriented to time, oriented to situation, CN II-XII grossly intact. ABSENT: motor sensory deficit Psychiatric exam: PRESENT: appropriate affect, normal mood. ABSENT: homicidal ideation, suicidal ideation Skin exam: PRESENT: dry, intact, warm. ABSENT: cyanosis, rash Results Laboratory Results: 05/06/17 05:20 05/06/17 05:20 04/29/17 04/29/17 04/29/17 15:43 15:43 23:00 Creatine Kinase 1012 H 915 H CK-MB (CK-2) 6.58 H Troponin I 0.241 04/29/17 05/01/17 05/01/17 23:00 05:17 05:17 Creatine Kinase 477 H CK-MB (CK-2) 6.59 H 4.14 Troponin I 0.218 0.123 Impressions: Chest X-Ray 04/29/17 11:14 IMPRESSION: 1 As on the prior examination dated 04/26/2027, mild cardiomegaly and prominence of the pulmonary vasculature, suggesting vascular congestion. 2. Limited lung volumes. No acute pulmonary consolidation. Qualifiers - * PATEINT BEING DISCHARGED WITH ANY OF THE FOLLOWING DIAGNOSIS?: No
== END 2017-05-07 15:48 | disposition home health service (06) | DRG 291 ==
LOC: ER 10:38 → EH 14:37 → 3W 04-30 00:21
PROVIDERS: ADMIT Emergency Medicine; ATTEND Emergency Medicine
PROC: 3E1M39Z Irrigation of Peritoneal Cavity using Dialysate, Percutaneous Approach (ICD-10-PCS; principal; 2017-04-30)
DX: I13.2 Hypertensive heart and chronic kidney disease with heart failure and with stage 5 chronic kidney disease, or end stage renal disease (principal); N18.6 End stage renal disease; E10.22 Type 1 diabetes mellitus with diabetic chronic kidney disease; E87.1 Hypo-osmolality and hyponatremia; N25.0 Renal osteodystrophy; E83.39 Other disorders of phosphorus metabolism; Z68.43 Body mass index [BMI] 50.0-59.9, adult; I50.33 Acute on chronic diastolic (congestive) heart failure; I16.0 Hypertensive urgency; J06.9 Acute upper respiratory infection, unspecified; B96.3 Hemophilus influenzae [H. influenzae] as the cause of diseases classified elsewhere; Z99.2 Dependence on renal dialysis; K21.9 Gastro-esophageal reflux disease without esophagitis; M19.90 Unspecified osteoarthritis, unspecified site; F32.9 Major depressive disorder, single episode, unspecified; H10.9 Unspecified conjunctivitis; E78.5 Hyperlipidemia, unspecified; J45.909 Unspecified asthma, uncomplicated; E66.9 Obesity, unspecified; R74.8 Abnormal levels of other serum enzymes; F41.9 Anxiety disorder, unspecified; Z88.8 Allergy status to other drugs, medicaments and biological substances; Z79.4 Long term (current) use of insulin; Z98.51 Tubal ligation status; Z82.49 Family history of ischemic heart disease and other diseases of the circulatory system; Z83.3 Family history of diabetes mellitus
CPT/HCPCS: 36415; 71046; 80048; 80053; 82550; 82553; 82962; 83880; 84484; 85025; 85027; 87040; 87070; 87075; 87077; 87205; 89050; 90945; 90947; 93005; 93010; 93306; 94640; 96374; 99285; G8978-GP; G8979-GP; J0360; J0692; J0696; J1644; J1815; J1940; J3370; J3490; J7060; J7620; Q4081

== ENCOUNTER 2017-05-26 07:21 | Emergency (ER) | payer MEDICARE, MEDICAID ==
--- NOTE | 2017-05-26 07:35 | ER Document Report ---
ED Skin Rash/Insect Bite/Abscs - General Chief Complaint: Abscess Stated Complaint: VAGINAL PAIN Time Seen by Provider: 05/26/17 07:34 Mode of Arrival: Ambulatory Information source: Patient Notes: 51-year-old morbidly obese peritoneal dialysis diabetic hypertensive patient is here with a mons pubis abscess. No fever or chills. No pain other than the location of the abscess. It started small 2 days ago. She did not take her insulin last night because of the pain. Her glucose was 178 yesterday. She did take her blood pressure medicine this morning. No history of MRSA but she gets an abscess about every 6 months either on her buttocks or her pubic area. She had a wound culture done in 1998. TRAVEL OUTSIDE OF THE [place] IN LAST 30 DAYS: No - Related Data Allergies/Adverse Reactions: oxycodone HCl [From Percocet] Allergy (Verified 01/02/17 07:34) Nausea prochlorperazine edisylate [From Compazine] Allergy (Verified 01/02/17 07:34) Hallucinations prochlorperazine maleate [From Compazine] Allergy (Verified 01/02/17 07:34) Hallucinations propoxyphene napsylate [From Darvocet-N 100] Allergy (Verified 01/02/17 07:34) Hallucinations Past Medical History - General Information source: Patient - Social History Smoking Status: Never Smoker Frequency of alcohol use: None Drug Abuse: None Lives with: Family Family History: DM, Hypertension - Past Medical History Cardiac Medical History: Reports: Hx Congestive Heart Failure, Hx Hypercholesterolemia, Hx Hypertension Pulmonary Medical History: Reports: Hx Asthma, Hx Pneumonia, Hx Sleep Apnea Endocrine Medical History: Reports: Hx Diabetes Mellitus Type 1 Renal/ Medical History: Reports: Hx End Stage Renal Disease - Peritoneal dialysis, Hx Kidney Stones, Hx Peritoneal Dialysis GI Medical History: Reports: Hx Gastroesophageal Reflux Disease Psychiatric Medical History: Reports: Hx Depression Infectious Medical History: Denies: Hx MRSA Past Surgical History: Reports: Hx Abdominal Surgery - peritoneal dialysis fistula, Hx Hysterectomy, Hx Tubal Ligation, Other - Peritoneal dialysis catheter placement - Immunizations Immunizations up to date: No Hx Diphtheria, Pertussis, Tetanus Vaccination: Yes - 2013 Hx Pneumococcal Vaccination: 11/19/11 Review of Systems - Review of Systems Constitutional: No symptoms reported EENT: No symptoms reported Cardiovascular: No symptoms reported Respiratory: No symptoms reported Gastrointestinal: No symptoms reported Genitourinary: No symptoms reported Female Genitourinary: No symptoms reported Musculoskeletal: No symptoms reported Skin: See HPI Hematologic/Lymphatic: No symptoms reported Neurological/Psychological: No symptoms reported Physical Exam - Vital signs Vitals: Temp Pulse Resp BP Pulse Ox 97.9 F 107 H 20 165/104 H 97 05/26/17 07:26 05/26/17 07:26 05/26/17 07:26 05/26/17 07:26 05/26/17 07:26 Interpretation: Hypertensive, Tachycardic - General General appearance: Appears well, Alert Notes: Morbidly obese - HEENT Head: Normocephalic, Atraumatic Eyes: Normal Pupils: PERRL Neck: Supple - Respiratory Respiratory status: No respiratory distress Chest status: Nontender Breath sounds: Normal Chest palpation: Normal - Cardiovascular Rhythm: Regular Heart sounds: Normal auscultation Murmur: No - Abdominal Inspection: Normal Distension: No distension Bowel sounds: Normal Tenderness: Nontender. No: Tender Organomegaly: No organomegaly Notes: Left peritoneal dialysis catheter intact and in place - Back Back: Normal, Nontender - Extremities General upper extremity: Normal inspection, Nontender, Normal color, Normal ROM , Normal temperature General lower extremity: Normal inspection, Nontender, Normal color, Normal ROM , Normal temperature, Normal weight bearing. No: Mj's sign - Neurological Neuro grossly intact: Yes Cognition: Normal Orientation: AAOx4 Meghan Coma Scale Eye Opening: Spontaneous [place]han Coma Scale Verbal: Oriented [place]han Coma Scale Motor: Obeys Commands [place] Coma Scale Total: 15 Speech: Normal Motor strength normal: LUE, RUE, LLE, RLE Sensory: Normal - Psychological Associated symptoms: Normal affect, Normal mood - Skin Skin Temperature: Warm Skin Moisture: Dry Skin Color: Normal Skin irregularity: Abscess - Mons pubis fluctuant abscess, localized. Irregularity with: Warmth. negative: Lymphangitis Course - Re-evaluation Re-evalutation: 05/26/17 09:38 labs OK, bun and creatinine her usual, she did do her dialysis last night - Vital Signs Vital signs: Temp Pulse Resp BP Pulse Ox 97.3 F 78 18 104/67 95 05/26/17 09:44 05/26/17 09:44 05/26/17 09:44 05/26/17 09:44 05/26/17 09:44 - Laboratory Result Diagrams: 05/26/17 07:55 05/26/17 07:55 Laboratory results interpreted by me: 05/26/17 05/26/17 07:55 07:55 Hgb 10.9 L Hct 35.2 L MCH 25.5 L MCHC 31.0 L RDW 20.1 H Chloride 97 L BUN 70 H Creatinine 16.83 H Est GFR ( Amer) 3 L Est GFR (Non-Af Amer) 2 L Glucose 189 H Calcium 10.3 H Direct Bilirubin 0.6 H Alkaline Phosphatase 143 H Procedures - Incision and Drainage Groin Time completed: 09:33 Type: Simple Anesthetic type: 1% Lidocaine mL's of anesthetic: 5 - L.E.T. Blade size: 11 I&D procedure: Shurclens applied, Sterile dressing applied - corner of 4 x 4 packing Incision Method: Incision made by scalpel Amount/type of drainage: large pus Adult Front & Back picture: 1 - mons pubis abscess Discharge - Discharge Clinical Impression: Incision and drainage mons pubis abscess Condition: Good Disposition: HOME, SELF-CARE Instructions: Abscess ([facility]), Cephalexin ([facility]), Post Incision and Drainage, Trimethoprim-Sulfa ([facility]) Additional Instructions: Return tomorrow for wound recheck Keep the bandage on Keflex and Septra antibiotics as prescribed Return to the emergency room for increased pain, fever, generalized body aches take your insulin today Prescriptions: Cephalexin Monohydrate [Keflex 500 mg Capsule] 500 mg PO QID #28 capsule Sulfamethoxazole/Trimethoprim [Sulfamethoxazole-Tmp Ds Tablet] 1 each PO BID # 14 tablet Referrals: JULIA GOMEZ PA-C [Primary Care Provider] - Follow up as needed
[2017-05-26] MEDS ORDERED: HYDROCODONE/ACETAMINOPHEN 5-325 MG TABLET PO ONE (07:52)
[2017-05-26 08:11] LABS: ABSOLUTE BASOPHILS # (AUTO) 0.1 10^3/uL (0.0-0.2); ABSOLUTE EOSINOPHILS # (AUTO) 0.5 10^3/uL (0.0-0.6); ABSOLUTE LYMPHOCYTES (AUTO) 1.9 10^3/uL (0.5-4.7); ABSOLUTE MONOCYTES (AUTO) 0.9 10^3/uL (0.1-1.4); ABSOLUTE NEUT (AUTO) 5.6 10^3/uL (1.7-8.2); BASOPHILS % (AUTO) 1.3 % (0-2); EOSINOPHILS % (AUTO) 5.2 % (0-6); HEMATOCRIT 35.2 % (36.0-47.0); HEMOGLOBIN 10.9 g/dL (12.0-15.5); LYMPHOCYTES % (AUTO) 21.1 % (13-45); MEAN CORPUSCULAR HEMOGLOBIN 25.5 pg (27.0-33.4); MEAN CORPUSCULAR VOLUME 82 fl (80-97); MONOCYTES % (AUTO) 9.7 % (3-13); PLATELET COUNT 266 10^3/uL (150-450); RED BLOOD COUNT 4.29 10^6/uL (3.72-5.28); RED CELL DISTRIBUTION WIDTH 20.1 % (11.5-14.0); SEGMENTED NEUTROPHILS % (AUTO) 62.7 % (42-78); TOTAL CELLS COUNTED % (AUTO) 100 %; WHITE BLOOD COUNT 8.9 10^3/uL (4.0-10.5)
[2017-05-26 08:29] LABS: ALANINE AMINOTRANSFERASE 42 U/L (9-52); ALBUMIN 3.8 g/dL (3.5-5.0); ALKALINE PHOSPHATASE 143 U/L (38-126); ANION GAP 17 (5-19); ASPARTATE AMINO TRANSFERASE 23 U/L (14-36); BILIRUBIN,DIRECT 0.6 mg/dL (0.0-0.4); BILIRUBIN,TOTAL 0.6 mg/dL (0.2-1.3); BLOOD UREA NITROGEN 70 mg/dL (7-20); CALCIUM 10.3 mg/dL (8.4-10.2); CARBON DIOXIDE 27 mmol/L (22-30); CHLORIDE 97 mmol/L (98-107); GLUCOSE 189 mg/dL (75-110); POTASSIUM 3.7 mmol/L (3.6-5.0); SODIUM 141.2 mmol/L (137-145); TOTAL PROTEIN 7.6 g/dL (6.3-8.2)
[2017-05-26] MEDS ORDERED: LIDOCAINE 4%/TETRACAINE 0.5%/EPI 0.18% 5 ML TOPICAL SOLN TOP ONE (08:33)
[2017-05-26] MEDS ORDERED: SULFAMETHOXAZOLE/TRIMETHOPRIM 800-160 MG TABLET PO ONE (08:40)
[2017-05-26] MEDS ORDERED: CEPHALEXIN 500 MG CAPSULE PO ONE (08:40)
[2017-05-26 09:54] VITALS: BP 104/67
== END 2017-05-26 09:54 | disposition home or self-care (01) ==
LOC: ER 07:21
DX: L02.215 Cutaneous abscess of perineum (principal); E10.22 Type 1 diabetes mellitus with diabetic chronic kidney disease; I12.0 Hypertensive chronic kidney disease with stage 5 chronic kidney disease or end stage renal disease; N18.6 End stage renal disease; Z99.2 Dependence on renal dialysis; J45.909 Unspecified asthma, uncomplicated; Z88.5 Allergy status to narcotic agent; Z88.8 Allergy status to other drugs, medicaments and biological substances
CPT/HCPCS: 99283; 36415; 87070; 87205; 85025; 87077; 80053; 87186; 10060; A9270 ×3; J3490

== ENCOUNTER 2017-05-27 07:33 | Emergency (ER) | payer MEDICARE, MEDICAID ==
[2017-05-27 07:39] VITALS: BP 142/74
--- NOTE | 2017-05-27 08:05 | ER Document Report ---
ED General - General Chief Complaint: Wound Recheck Stated Complaint: WOUND RECHECK Time Seen by Provider: 05/27/17 07:48 Mode of Arrival: Ambulatory Information source: Patient Notes: 51-year-old female with history of obesity, diabetes, end-stage renal disease, hypertension presents for wound check. Patient was seen yesterday and had a an abscess drained which is located on her mons pubis. At that time a large amount of pus was expressed. The wound was packed and patient was placed on antibiotics. She was told to follow-up for wound check and dressing change. Patient denies MRSA history. She does admit to recurrent abscesses. Denies any fever, chills, nausea, vomiting. TRAVEL OUTSIDE OF THE [place] IN LAST 30 DAYS: No - HPI Onset: Yesterday Onset/Duration: Gradual Quality of pain: Stabbing Severity: Mild Associated symptoms: None Exacerbated by: Walking Relieved by: Denies Similar symptoms previously: Yes Recently seen / treated by doctor: Yes - 05/26/17 - Related Data Allergies/Adverse Reactions: oxycodone HCl [From Percocet] Allergy (Verified 01/02/17 07:34) Nausea prochlorperazine edisylate [From Compazine] Allergy (Verified 01/02/17 07:34) Hallucinations prochlorperazine maleate [From Compazine] Allergy (Verified 01/02/17 07:34) Hallucinations propoxyphene napsylate [From Darvocet-N 100] Allergy (Verified 01/02/17 07:34) Hallucinations Past Medical History - General Information source: Patient - Social History Smoking Status: Never Smoker Chew tobacco use (# tins/day): No Frequency of alcohol use: None Drug Abuse: None Lives with: Family Family History: DM, Hypertension Patient has suicidal ideation: No Patient has homicidal ideation: No - Past Medical History Cardiac Medical History: Reports: Hx Congestive Heart Failure, Hx Hypercholesterolemia, Hx Hypertension Denies: Hx Heart Attack Pulmonary Medical History: Reports: Hx Asthma, Hx Pneumonia, Hx Sleep Apnea Denies: Hx Bronchitis, Hx COPD Neurological Medical History: Denies: Hx Seizures Endocrine Medical History: Reports: Hx Diabetes Mellitus Type 1, Hx Diabetes Mellitus Type 2 Renal/ Medical History: Reports: Hx End Stage Renal Disease - Peritoneal dialysis, Hx Kidney Stones. Denies: Hx Peritoneal Dialysis GI Medical History: Reports: Hx Gastroesophageal Reflux Disease Musculoskeltal Medical History: Denies Hx Arthritis Psychiatric Medical History: Reports: Hx Depression Infectious Medical History: Denies: Hx MRSA Past Surgical History: Reports: Hx Abdominal Surgery - peritoneal dialysis fistula, Hx Hysterectomy, Hx Tubal Ligation, Other - Peritoneal dialysis catheter placement - Immunizations Immunizations up to date: No Hx Diphtheria, Pertussis, Tetanus Vaccination: Yes - 2013 Hx Pneumococcal Vaccination: 11/19/11 Review of Systems - Review of Systems Notes: Denies any fever, chills, nausea, vomiting, chest pain, shortness of breath, dysuria, hematuria,other rashes. Physical Exam - Vital signs Vitals: Temp Pulse Resp BP Pulse Ox 97.6 F 84 20 142/74 H 97 05/27/17 07:37 05/27/17 07:37 05/27/17 07:37 05/27/17 07:37 05/27/17 07:37 - Notes Notes: PHYSICAL EXAMINATION: GENERAL: Well-appearing, well-nourished and in no acute distress. HEAD: Atraumatic, normocephalic. EYES: Pupils equal round and reactive to light, extraocular movements intact, conjunctiva are normal. ENT: Nares patent, oropharynx clear without exudates. Moist mucous membranes. NECK: Normal range of motion, supple without lymphadenopathy LUNGS: Breath sounds clear to auscultation bilaterally and equal. No wheezes rales or rhonchi. HEART: Regular rate and rhythm without murmurs ABDOMEN: Soft, nontender, nondistended abdomen. No guarding, no rebound. No masses appreciated. Female : 2 cm linear wound on the mons pubis that is actively draining purulent fluid. Musculoskeletal: Normal range of motion, no pitting or edema. No cyanosis. NEUROLOGICAL: Cranial nerves grossly intact. Normal speech, normal gait. Normal sensory, motor exams PSYCH: Normal mood, normal affect. SKIN: Warm, Dry, normal turgor, no rashes or lesions noted. Course - Re-evaluation Re-evalutation: 05/27/17 08:04 51-year-old female with history of obesity, diabetes, end-stage renal disease, hypertension presents for wound check. Patient was seen yesterday and had a an abscess drained which is located on her mons pubis. At that time a large amount of pus was expressed. The wound was packed and patient was placed on antibiotics. She was told to follow-up for wound check and dressing change. Vital signs reviewed upon arrival. She is afebrile, mildly hypertensive. Wound was examined there is no surrounding erythema. It is actively draining purulent fluid. Packing was removed and replaced and dressing was changed. Patient states she has been able to tolerate her antibiotics. She was advised to follow-up with her primary care physician in 3 days. - Vital Signs Vital signs: Temp Pulse Resp BP Pulse Ox 97.6 F 84 20 142/74 H 97 05/27/17 07:37 05/27/17 07:37 05/27/17 07:37 05/27/17 07:37 05/27/17 07:37 Discharge - Discharge Clinical Impression: Wound check, abscess Condition: Good Disposition: HOME, SELF-CARE Instructions: Abscess (OM) Additional Instructions: Please follow-up with your primary care physician in 3 days to evaluate wound. Please return to the emergency department if you are unable to tolerate your antibiotics. Forms: Elevated Blood Pressure
== END 2017-05-27 08:13 | disposition home or self-care (01) ==
LOC: ER 07:33
DX: Z48.01 Encounter for change or removal of surgical wound dressing (principal); L02.215 Cutaneous abscess of perineum; E11.22 Type 2 diabetes mellitus with diabetic chronic kidney disease; I12.0 Hypertensive chronic kidney disease with stage 5 chronic kidney disease or end stage renal disease; N18.6 End stage renal disease; Z99.2 Dependence on renal dialysis; J45.909 Unspecified asthma, uncomplicated; Z88.5 Allergy status to narcotic agent; Z88.8 Allergy status to other drugs, medicaments and biological substances
CPT/HCPCS: 99282

== ENCOUNTER 2017-07-01 13:47 | Inpatient (IN) | payer MEDICARE, MEDICAID ==
[2017-07-01] MEDS ORDERED: ASPIRIN 81 MG TABLET, CHEWABLE PO ONE (15:11)
--- NOTE | 2017-07-01 15:12 | ER Document Report ---
ED Medical Screen (RME) - General Chief Complaint: Shortness Of Breath Stated Complaint: SHORTNESS OF BREATH Time Seen by Provider: 07/01/17 15:10 Notes: RAPID MEDICAL EVALUATION DISCLOSURE I have seen this patient as part of a Rapid Medical Evaluation and, if applicable, placed any initially appropriate orders. The patient will be seen and fully evaluated, including a full history and physical exam, by a provider ( in Main ED or Fast Track) when a room becomes available. 51-year-old female PMH CHF ESRD on peritoneal dialysis here with complaints of shortness of breath left-sided chest tightness and bilateral leg swelling ongoing for the past 3-4 days. She has been eating a lot of "shaved ice" lately and believes this might be the culprit. She is unable to pull more fluid off during her dialysis sessions because she does not have the appropriate supplies. EXAM CTAB RRR BLE pitting edema 1+ TRAVEL OUTSIDE OF THE [place] IN LAST 30 DAYS: No - Related Data Allergies/Adverse Reactions: oxycodone HCl [From Percocet] Allergy (Verified 07/01/17 13:59) Nausea prochlorperazine edisylate [From Compazine] Allergy (Verified 07/01/17 13:59) Hallucinations prochlorperazine maleate [From Compazine] Allergy (Verified 07/01/17 13:59) Hallucinations propoxyphene napsylate [From Darvocet-N 100] Allergy (Verified 07/01/17 13:59) Hallucinations Past Medical History - Social History Frequency of alcohol use: None Drug Abuse: None Family history: Reviewed & Not Pertinent - Past Medical History Cardiac Medical History: Reports: Hx Congestive Heart Failure, Hx Hypercholesterolemia, Hx Hypertension Denies: Hx Heart Attack Pulmonary Medical History: Reports: Hx Asthma, Hx Pneumonia, Hx Sleep Apnea Denies: Hx Bronchitis, Hx COPD Neurological Medical History: Denies: Hx Seizures Endocrine Medical History: Reports: Hx Diabetes Mellitus Type 1, Hx Diabetes Mellitus Type 2 Renal/ Medical History: Reports: Hx End Stage Renal Disease - Peritoneal dialysis, Hx Kidney Stones, Hx Peritoneal Dialysis GI Medical History: Reports: Hx Gastroesophageal Reflux Disease Musculoskeltal Medical History: Denies Hx Arthritis Psychiatric Medical History: Reports: Hx Depression Infectious Medical History: Denies: Hx MRSA Past Surgical History: Reports: Hx Abdominal Surgery - peritoneal dialysis fistula, Hx Hysterectomy, Hx Tubal Ligation, Other - Peritoneal dialysis catheter placement - Immunizations Immunizations up to date: No Hx Diphtheria, Pertussis, Tetanus Vaccination: Yes - 2013 History of Influenza Vaccine for 11/2016 - 04/2017 Season: Yes Influenza Administration Date for 11/2016 - 04/2017 Season: 12/19/16 Physical Exam - Vital signs Vitals: Temp Pulse Resp BP Pulse Ox 97.9 F 80 16 162/81 H 97 07/01/17 14:07 07/01/17 14:07 07/01/17 14:07 07/01/17 14:07 07/01/17 14:07 Course - Vital Signs Vital signs: Temp Pulse Resp BP Pulse Ox 97.9 F 80 16 162/81 H 97 07/01/17 14:07 07/01/17 14:07 07/01/17 14:07 07/01/17 14:07 07/01/17 14:07
[2017-07-01 15:36] LABS: ABSOLUTE BASOPHILS # (AUTO) 0.1 10^3/uL (0.0-0.2); ABSOLUTE EOSINOPHILS # (AUTO) 0.5 10^3/uL (0.0-0.6); ABSOLUTE LYMPHOCYTES (AUTO) 2.4 10^3/uL (0.5-4.7); ABSOLUTE MONOCYTES (AUTO) 0.9 10^3/uL (0.1-1.4); ABSOLUTE NEUT (AUTO) 4.8 10^3/uL (1.7-8.2); BASOPHILS % (AUTO) 1.5 % (0-2); EOSINOPHILS % (AUTO) 5.5 % (0-6); HEMATOCRIT 33.7 % (36.0-47.0); HEMOGLOBIN 10.9 g/dL (12.0-15.5); LYMPHOCYTES % (AUTO) 27.7 % (13-45); MEAN CORPUSCULAR HEMOGLOBIN 26.4 pg (27.0-33.4); MEAN CORPUSCULAR HGB CONC 32.2 g/dL (32.0-36.0); MEAN CORPUSCULAR VOLUME 82 fl (80-97); MONOCYTES % (AUTO) 10.2 % (3-13); PLATELET COUNT 237 10^3/uL (150-450); RED BLOOD COUNT 4.13 10^6/uL (3.72-5.28); RED CELL DISTRIBUTION WIDTH 18.3 % (11.5-14.0); SEGMENTED NEUTROPHILS % (AUTO) 55.1 % (42-78); TOTAL CELLS COUNTED % (AUTO) 100 %; WHITE BLOOD COUNT 8.7 10^3/uL (4.0-10.5)
--- NOTE | 2017-07-01 15:39 | ER Document Report ---
ED General - General Chief Complaint: Shortness Of Breath Stated Complaint: SHORTNESS OF BREATH Time Seen by Provider: 07/01/17 15:10 Notes: Patient is a 51-year-old female who presents emergency department the chief complaint of shortness of breath. Past medical history significant for end- stage renal disease on peritoneal dialysis that the patient completes at home, CHF, hypertension, diabetes. Patient follows with Dr. Moran is her title abstractor and her primary care is Tejal byrd. She denies any fever, chills , productive cough. She admits to orthopnea and dyspnea on exertion. She denies any chest pain Patient's peritoneal dialysis schedule. 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 TRAVEL OUTSIDE OF THE [place] IN LAST 30 DAYS: No - Related Data Allergies/Adverse Reactions: oxycodone HCl [From Percocet] Allergy (Verified 07/01/17 13:59) Nausea prochlorperazine edisylate [From Compazine] Allergy (Verified 07/01/17 13:59) Hallucinations prochlorperazine maleate [From Compazine] Allergy (Verified 07/01/17 13:59) Hallucinations propoxyphene napsylate [From Darvocet-N 100] Allergy (Verified 07/01/17 13:59) Hallucinations Past Medical History - Social History Smoking Status: Never Smoker Frequency of alcohol use: None Drug Abuse: None Family History: DM, Hypertension Patient has suicidal ideation: No Patient has homicidal ideation: No - Past Medical History Cardiac Medical History: Reports: Hx Congestive Heart Failure, Hx Hypercholesterolemia, Hx Hypertension Denies: Hx Heart Attack Pulmonary Medical History: Reports: Hx Asthma, Hx Pneumonia, Hx Sleep Apnea Denies: Hx Bronchitis, Hx COPD Neurological Medical History: Denies: Hx Seizures Endocrine Medical History: Reports: Hx Diabetes Mellitus Type 1, Hx Diabetes Mellitus Type 2 Renal/ Medical History: Reports: Hx End Stage Renal Disease - Peritoneal dialysis, Hx Kidney Stones, Hx Peritoneal Dialysis GI Medical History: Reports: Hx Gastroesophageal Reflux Disease Musculoskeltal Medical History: Denies Hx Arthritis Psychiatric Medical History: Reports: Hx Depression Infectious Medical History: Denies: Hx MRSA Past Surgical History: Reports: Hx Abdominal Surgery - peritoneal dialysis fistula, Hx Hysterectomy, Hx Tubal Ligation, Other - Peritoneal dialysis catheter placement - Immunizations Immunizations up to date: No Hx Diphtheria, Pertussis, Tetanus Vaccination: Yes - 2013 Hx Pneumococcal Vaccination: 11/19/11 Review of Systems - Review of Systems Constitutional: No symptoms reported Cardiovascular: No symptoms reported Respiratory: See HPI Gastrointestinal: No symptoms reported Musculoskeletal: See HPI Neurological/Psychological: No symptoms reported -: Yes All other systems reviewed and negative Physical Exam - Vital signs Vitals: Temp Pulse Resp BP Pulse Ox 97.9 F 80 16 162/81 H 97 07/01/17 14:07 07/01/17 14:07 07/01/17 14:07 07/01/17 14:07 07/01/17 14:07 - Notes Notes: PHYSICAL EXAM GENERAL: Alert, interacts well. HEAD: Normocephalic, atraumatic. EYES: Pupils equal, round, and reactive to light. Extraocular movements intact. ENT: Oral mucosa moist, tongue midline. NECK: Full range of motion. Supple. Trachea midline. LUNGS: Clear to auscultation bilaterally, no wheezes, rales, or rhonchi. No respiratory distress. HEART: Regular rate and rhythm. No murmurs, gallops, or rubs. ABDOMEN: Soft, nondistended, nontender. No guarding, rebound, or rigidity.. Bowel sounds present in all 4 quadrants. EXTREMITIES: Moves all 4 extremities spontaneously. 2+ edema, radial and dorsalis pedis pulses 2/4 bilaterally. No cyanosis. NEUROLOGICAL: Alert and oriented x4. Normal speech. PSYCH: Normal affect, normal mood. SKIN: Warm, dry, normal turgor. No rashes or lesions noted. Course - Re-evaluation Re-evalutation: 07/01/17 16:30 Patient is a 51-year-old female who is hemodynamically stable, no acute distress afebrile. Labs without evidence of hyperkalemia or concerns for emergent dialysis. Chest x-ray without evidence of significant fluid overload consistent with exam without evidence of rales. Did review case with Dr. Moran who did give home recommendations for dialysis 07/01/17 17:12 Patient states that she does not have enough of her rapid home exchange dialysate and will not receive this shipment until . She was ambulated and able to maintain a saturation of 99 200% but tachypneic and dyspneic. Reviewed this Dr. Moran who agrees to admit the patient. She is accepted to telemetry under Dr. Rodriguez. - Vital Signs Vital signs: Temp Pulse Resp BP Pulse Ox 97.9 F 80 16 129/79 H 99 07/01/17 14:07 07/01/17 14:07 07/01/17 18:21 07/01/17 18:21 07/01/17 18:21 - Laboratory Result Diagrams: 07/01/17 15:25 07/01/17 15:25 Laboratory results interpreted by me: 07/01/17 07/01/17 07/01/17 15:25 15:25 15:25 Hgb 10.9 L Hct 33.7 L MCH 26.4 L RDW 18.3 H Chloride 95 L Anion Gap 23 H BUN 80 H Creatinine 17.85 H Est GFR ( Amer) 3 L Est GFR (Non-Af Amer) 2 L Glucose 152 H Calcium 10.5 H NT-Pro-B Natriuret Pep 5390 H - Diagnostic Test Radiology reviewed: Image reviewed, Reports reviewed - EKG Interpretation by Me EKG shows normal: Sinus rhythm Rate: Normal Rhythm: NSR, Other - no evidence of peaked T waves When compared to previous EKG there are: No significant change Discharge - Discharge Clinical Impression: CKD (chronic kidney disease), stage IV, Peritoneal dialysis status Dyspnea Qualifiers: Dyspnea type: orthopnea Qualified Code(s): R06.01 - Orthopnea Condition: Stable Disposition: ADMITTED INPATIENT Admitting Provider: Hospitalist Unit Admitted: Telemetry
[2017-07-01 15:52] LABS: BLOOD UREA NITROGEN 80 mg/dL (7-20); CALCIUM 10.5 mg/dL (8.4-10.2); GLUCOSE 152 mg/dL (75-110); POTASSIUM 3.9 mmol/L (3.6-5.0)
[2017-07-01 16:00] LABS: CARBON DIOXIDE 26 mmol/L (22-30); CHLORIDE 95 mmol/L (98-107); SODIUM 143.5 mmol/L (137-145)
[2017-07-01 16:01] LABS: ANION GAP 23 (5-19)
--- NOTE | 2017-07-01 16:08 | RADIOLOGY REPORT (SQ) ---
EXAM DESCRIPTION: CHEST 2 VIEWS COMPLETED DATE/TIME: 07/01/2017 3:56 pm REASON FOR STUDY: SOB; eval edema COMPARISON: Two-view chest 04/29/2017 EXAM PARAMETERS: NUMBER OF VIEWS: two views TECHNIQUE: Digital Frontal and Lateral radiographic views of the chest acquired. RADIATION DOSE: NA LIMITATIONS: none FINDINGS: LUNGS AND PLEURA: No opacities, masses or pneumothorax. No pleural effusion. MEDIASTINUM AND HILAR STRUCTURES: No masses or contour abnormalities. HEART AND VASCULAR STRUCTURES: Moderate cardiomegaly BONES: No acute findings. HARDWARE: None in the chest. OTHER: No other significant finding. IMPRESSION: Moderate cardiomegaly. No acute changes TECHNICAL DOCUMENTATION: JOB ID: [id number] [email or web address]- All Rights Reserved Reading location - IP/workstation name: [email or web address]
[2017-07-01 16:10] LABS: TROPONIN I 0.092 ng/mL
[2017-07-01] MEDS ORDERED: ALBUTEROL SULFATE 0.083% NEB 2.5 MG/3 ML AMPUL NEB PRN (17:29)
[2017-07-01] MEDS ORDERED: DEXTROSE 50%-WATER 25 GM/50 ML DISP.SYRIN IV PRN ×2 (17:38)
[2017-07-01] MEDS ORDERED: DEXTROSE 40% GEL 15 GM TUBE PO PRN ×2 (17:38)
[2017-07-01] MEDS ORDERED: ONDANSETRON HCL INJ/PF 4 MG/2 ML SDV IV PRN (17:38)
[2017-07-01] MEDS ORDERED: GLUCAGON,HUMAN RECOMB 1 MG INJ IM PRN (17:38)
--- NOTE | 2017-07-01 17:50 | PDOC H&P ---
History of Present Illness Admission Date/PCP: 07/01/17 17:13 JULIA GOMEZ PA-C Patient complains of: Short of breath History of Present Illness: JASPREET STAFFORD is a 51 year old super morbidly obese female on peritoneal dialysis. She has had progressive shortness of breath and came into the emergency department. She states she is unable to obtain rapid dialysis supplies. So we have been asked to put her in so she can get dialyzed here. Her only other complaint is that she is hungry Past Medical History Cardiac Medical History: Reports: Congestive Heart Failure, Hyperlipidema, Hypertension Denies: Myocardial Infarction Pulmonary Medical History: Reports: Asthma, Pneumonia, Sleep Apnea Denies: Bronchitis, Chronic Obstructive Pulmonary Disease (COPD) Neurological Medical History: Denies: Seizures Endocrine Medical History: Reports: Diabetes Mellitus Type 1, Diabetes Mellitus Type 2 Renal/ Medical History: Reports: End Stage Renal Disease - Peritoneal dialysis GI Medical History: Reports: Gastroesophageal Reflux Disease Musculoskeltal Medical History: Denies: Arthritis Psychiatric Medical History: Reports: Depression Hematology: Reports: Anemia Infectious Medical History: Denies: Methicillin-Resistant Staph Aureus Past Surgical History Past Surgical History: Reports: Hysterectomy, Tubal Ligation, Other - Peritoneal dialysis catheter placement Social History Information Source: Patient, H Records Smoking Status: Never Smoker Frequency of Alcohol Use: None Hx Recreational Drug Use: No Drugs: None Hx Prescription Drug Abuse: No - Advance Directive Resuscitation Status: Full Code Family History Family History: DM, Hypertension Parental Family History Reviewed: Yes Children Family History Reviewed: No Sibling(s) Family History Reviewed.: No Medication/Allergy Home Medications: Carvedilol [Coreg 25 mg Tablet] 25 mg PO Q12 04/29/17 Hydralazine HCl 100 mg PO Q8 04/29/17 Insulin Glargine,Hum.rec.anlog [Farzaneh Solchen] 22 units SQ QHS 04/29/17 Insulin Lispro [Humalog Kwikpen U-100] 5 units SQ MEALS 04/29/17 Polyethylene Glycol 3350 [Miralax Powder 17 gm/Packet] 17 gm PO DAILY 04/29/17 Pregabalin [Lyrica 75 mg Capsule] 75 mg PO Q12 04/29/17 Benzonatate [Tessalon Perles 100 mg Capsule] 100 mg PO Q8 capsule 05/07/17 Calcium Acetate [Phoslo 667 mg Capsule] 667 mg PO MEALS capsule 05/07/17 Cefuroxime Axetil [Ceftin 250 mg Tablet] 1 tab PO BID #6 tablet 05/07/17 Folic Acid/Vitamin B Comp W-C [Nephrocaps Multiple Vitamin Capsule] 1 cap PO ACSUPPER capsule 05/07/17 Guaifenesin [Mucinex Sr 600 mg Tablet.sa] 600 mg PO Q12A tablet.sa 05/07/17 Loratadine/Pseudoephedrine Sul [Claritin-D 24 Hour Tablet] 1 tab PO DAILY tab.sr.24h 05/07/17 Cephalexin Monohydrate [Keflex 500 mg Capsule] 500 mg PO QID #28 capsule Sulfamethoxazole/Trimethoprim [Sulfamethoxazole-Tmp Ds Tablet] 1 each PO BID # 14 tablet 05/26/17 Allergies/Adverse Reactions: oxycodone HCl [From Percocet] Allergy (Verified 07/01/17 13:59) Nausea prochlorperazine edisylate [From Compazine] Allergy (Verified 07/01/17 13:59) Hallucinations prochlorperazine maleate [From Compazine] Allergy (Verified 07/01/17 13:59) Hallucinations propoxyphene napsylate [From Darvocet-N 100] Allergy (Verified 07/01/17 13:59) Hallucinations Review of Systems All systems: reviewed and no additional remarkable complaints except as stated Physical Exam Vital Signs: Temp Pulse Resp BP Pulse Ox 97.9 F 80 16 162/81 H 98 07/01/17 14:07 07/01/17 14:07 07/01/17 17:00 07/01/17 14:07 07/01/17 17:00 General appearance: PRESENT: no acute distress, morbidly obese Respiratory exam: PRESENT: other - Very distant breath sounds Cardiovascular exam: PRESENT: RRR GI/Abdominal exam: PRESENT: soft, other - Catheter in place Extremities exam: PRESENT: +2 edema Neurological exam: PRESENT: alert Psychiatric exam: PRESENT: appropriate affect Skin exam: PRESENT: dry, warm Results Impressions: Chest X-Ray 07/01/17 15:10 IMPRESSION: Moderate cardiomegaly. No acute changes Assessment & Plan - Diagnosis (1) Volume overload Qualifiers: Hypervolemia type: other Qualified Code(s): E87.79 - Other fluid overload Is this a current diagnosis for this admission?: Yes Plan: We will put her in a monitored bed, nephrology has been consulted and they have agreed to dialyze her tonight. (2) Diabetes mellitus type 2 in obese Is this a current diagnosis for this admission?: Yes Plan: Managed as type I. Continue home medications and cover with sliding scale insulin (3) ESRD (end stage renal disease) on dialysis Is this a current diagnosis for this admission?: Yes (4) Hypertension Qualifiers: Hypertension type: essential hypertension Qualified Code(s): I10 - Essential (primary) hypertension Is this a current diagnosis for this admission?: Yes Plan: Continue home medications (5) Diabetic nephropathy Is this a current diagnosis for this admission?: Yes (6) Morbid obesity with BMI of 50.0-59.9, adult Is this a current diagnosis for this admission?: Yes Plan: Put on a diabetic renal diet consistent with sensible weight loss
--- NOTE | 2017-07-01 19:29 | PDOC CONSULTATION ---
Consultation Consult Date: 07/01/17 Attending physician:: LUCINDA KRAUS Consult reason:: I was asked to see the patient because of shortness of breath and a patient with end-stage renal disease on peritoneal dialysis. History of Present Illness Admission Date/PCP: 07/01/17 17:13 JULIA GOMEZ PA-C History of Present Illness: JASPREET STAFFORD is a 51 year old female known to me with history of ESRD due to diabetic nephropathy and hypertensive nephrosclerosis and chronic peritoneal dialysis using cycler and model exchanges at home, diabetes mellitus type 2 and hypertension who came into the emergency room today because of shortness of breath. Patient said that she has been eating shaved or crushed ice about 2 large cups daily. For the last 2 days she started feeling short of breath. She states that she can lay flat consistent with 4-5 pillow orthopnea. She has a little bit of cough. She also developed lower extremity edema. She admits she is trying not to use too much salt and was trying but did not like it. Patient denies any chest pains, fever nor any other complaints. Initially I instructed the emergency room ARI Garduno to instruct the patient to do rapid exchanges at home however the patient states that she does not have enough PD solutions until . So at that point we did not have a choice but to have the patient admitted to relieve her fluid overload. Past Medical History Cardiac Medical History: Reports: CHF-Diastolic, Hyperlipidemia, Hypertension- primary Pulmonary Medical History: Reports: Asthma, Pneumonia, Sleep Apnea Neurological Medical History: Denies: Seizures Endocrine Medical History: Reports: Diabetes Mellitus Type 2 Complications of Diabetes: Reports: Nephropathy Renal/ Medical History: Reports: End Stage Renal Disease - Peritoneal dialysis , Hyperphosphatemia, Renal Osteodystropy, Secondary Hyperparathyroidism GI Medical History: Reports: Gastroesophageal Reflux Disease Musculoskeltal Medical History: Denies: Arthritis Psychiatric Medical History: Reports: Depression Hematology Medical History: Reports Anemia of Chronic Kidney Disease Past Surgical History Past Surgical History: Reports: Hysterectomy, Tubal Ligation, Other - Peritoneal dialysis catheter placement Social History Information Source: Patient Smoking Status: Never Smoker Frequency of Alcohol Use: None Hx Recreational Drug Use: No Drugs: None Hx Prescription Drug Abuse: No - Advance Directive Resuscitation Status: Full Code Family History Family History: Chronic Kidney Disease - Father on dialysis, DM - Father, Hypertension - Father Parental Family History Reviewed: Yes Children Family History Reviewed: NA Sibling(s) Family History Reviewed.: Yes Medication/Allergy Home Medications: Carvedilol [Coreg 25 mg Tablet] 25 mg PO Q12 04/29/17 Hydralazine HCl 100 mg PO Q8 04/29/17 Insulin Glargine,Hum.rec.anlog [Toulyudmilao Solostar] 26 units SQ QHS 04/29/17 Insulin Lispro [Humalog Kwikpen U-100] 6 units SQ MEALS 04/29/17 Pregabalin [Lyrica 75 mg Capsule] 75 mg PO Q12 04/29/17 Ammonium Lactate [Lac-Hydrin 12% Lotion 225Gm/Bottle] 1 applic TP BID 07/01/17 Calcium Acetate [Phoslo 667 Mg Capsule] 1,334 mg PO MEALS 07/01/17 Cephalexin [Keflex] 250 mg PO Q8 MDD FOR 10DAYS STARTING 06/25/17 07/01/17 Fluconazole [Diflucan 100 Mg Tablet] 100 mg PO DAILY MDD FOR 10DAYS STARTING 06/2607/01/17 Potassium Chloride [Klor-Con 10 Meq Tablet.sa] 20 meq PO DAILY 07/01/17 Allergies/Adverse Reactions: oxycodone HCl [From Percocet] Allergy (Verified 07/01/17 13:59) Nausea prochlorperazine edisylate [From Compazine] Allergy (Verified 07/01/17 13:59) Hallucinations prochlorperazine maleate [From Compazine] Allergy (Verified 07/01/17 13:59) Hallucinations propoxyphene napsylate [From Darvocet-N 100] Allergy (Verified 07/01/17 13:59) Hallucinations Review of Systems All systems: reviewed and no additional remarkable complaints except as stated Review of Systems: Constitutional: ABSENT: chills, fatigue, fever(s), headache(s), weight gain, weight loss Eyes: ABSENT: visual disturbances Ears: ABSENT: hearing changes Cardiovascular: ABSENT: chest pain, palpitations; admits persistent dyspnea, orthopnea, and lower extremity edema Respiratory: ABSENT: Hemoptysis; admits cough Gastrointestinal: ABSENT: abdominal pain, constipation, diarrhea, hematemesis, hematochezia, nausea, vomiting Genitourinary: ABSENT: dysuria, hematuria Musculoskeletal: ABSENT: joint swelling Integumentary: ABSENT: rash, wounds Neurological: ABSENT: abnormal gait, abnormal speech, confusion, dizziness, focal weakness, numbness, syncope Psychiatric: ABSENT: anxiety, depression Endocrine: ABSENT: cold intolerance, heat intolerance, polydipsia, polyuria Hematologic/Lymphatic: ABSENT: easy bleeding, easy bruising, lymphadenopathy Physical Exam Vital Signs: Temp Pulse Resp BP Pulse Ox 97.9 F 80 16 129/79 H 99 07/01/17 14:07 07/01/17 14:07 07/01/17 18:21 07/01/17 18:21 07/01/17 18:21 Exam: General appearance: no acute distress, cooperative, well-developed, well- nourished Head exam: PRESENT: atraumatic, normocephalic Eye exam: PRESENT: Conjunctiva [place], EOMI, PERRLA. ABSENT: conjunctival injection, scleral icterus Mouth exam: PRESENT: moist, neck supple, tongue midline Neck exam: PRESENT: full ROM. ABSENT: carotid bruit, JVD, lymphadenopathy, thyromegaly Respiratory exam: PRESENT: Mildly diminished to auscultation bilaterally. ABSENT: rales, rhonchi, stridor, wheezes Cardiovascular exam: PRESENT: RRR, +S1, +S2. ABSENT: systolic murmur Pulses: PRESENT: normal radial pulses, normal dorsalis pedis pulses GI/Abdominal exam: PRESENT: normal bowel sounds, soft. PD catheter in place with good exit site ABSENT: guarding, mass, tenderness Rectal exam: deferred Extremities exam: PRESENT: full ROM. Mild bilateral grade 1 bilateral lower extremity edema left greater than the right ABSENT: calf tenderness Musculoskeletal: PRESENT: full ROM. ABSENT: deformity Neurological exam: PRESENT: alert, Awake, Oriented to person, Oriented to place , Oriented to time, reflexes normal, CN II-XII grossly intact. ABSENT: motor sensory deficit Psychiatric exam: PRESENT: appropriate affect, normal mood. ABSENT: homicidal ideation, suicidal ideation Skin exam: PRESENT: intact, dry, warm. ABSENT: rash Results Laboratory Results: Laboratory 07/01/17 07/01/17 07/01/17 15:25 15:25 15:25 WBC 8.7 RBC 4.13 Hgb 10.9 L Hct 33.7 L MCV 82 MCH 26.4 L MCHC 32.2 RDW 18.3 H Plt Count 237 Seg Neutrophils % 55.1 Lymphocytes % 27.7 Monocytes % 10.2 Eosinophils % 5.5 Basophils % 1.5 Absolute Neutrophils 4.8 Absolute Lymphocytes 2.4 Absolute Monocytes 0.9 Absolute Eosinophils 0.5 Absolute Basophils 0.1 Sodium 143.5 Potassium 3.9 Chloride 95 L Carbon Dioxide 26 Anion Gap 23 H BUN 80 H Creatinine 17.85 H Est GFR ( Amer) 3 L Est GFR (Non-Af Amer) 2 L Glucose 152 H Calcium 10.5 H Troponin I 0.092 NT-Pro-B Natriuret Pep 5390 H Impressions: Chest X-Ray 07/01/17 15:10 IMPRESSION: Moderate cardiomegaly. No acute changes Assessment & Plan - Diagnosis (1) Dyspnea Qualifiers: Dyspnea type: orthopnea Qualified Code(s): R06.01 - Orthopnea Is this a current diagnosis for this admission?: Yes Plan: Likely secondary to fluid overload due to noncompliance with fluid restriction. Patient unable to get enough ultrafiltration to relieve her dyspnea at home. She needs rapid exchanges of peritoneal dialysis while here in the hospital (2) Volume overload Qualifiers: Hypervolemia type: other Qualified Code(s): E87.79 - Other fluid overload Is this a current diagnosis for this admission?: Yes (3) ESRD (end stage renal disease) on dialysis Is this a current diagnosis for this admission?: Yes Plan: We will do rapid peritoneal dialysis exchanges while here in the hospital. We will use the following regimen: Use fill volume of 3 L per exchange, 8 exchanges a day with exchanges to be done every 3 hours. We will use 4.25% dialysis solution during the first 3 exchanges as well as blood pressure is acceptable. Thereafter we are going to do alternating 4.25% and 2.5% dialysis solution and the patient's systolic blood pressure is less than 104.25% will be replaced by 2.5% at that point. Follow daily exit site care and daily weights. (4) Anemia in chronic kidney disease (CKD) Qualifiers: Chronic kidney disease stage: on chronic dialysis Qualified Code(s): N18.6 - End stage renal disease; D63.1 - Anemia in chronic kidney disease; D63.1 - Anemia in chronic kidney disease; Z99.2 - Dependence on renal dialysis; Z99.2 - Dependence on renal dialysis; Z99.2 - Dependence on renal dialysis; Z99.2 - Dependence on renal dialysis Is this a current diagnosis for this admission?: Yes (5) Diabetic nephropathy Is this a current diagnosis for this admission?: Yes (6) Diabetes mellitus type 2 in obese Is this a current diagnosis for this admission?: Yes (7) Hypertension Qualifiers: Hypertension type: essential hypertension Qualified Code(s): I10 - Essential (primary) hypertension Is this a current diagnosis for this admission?: Yes Plan: Continue current management and medications. - Notes Notes: Thank you very much for this consultation. - Time Time Spent: 50 to 70 Minutes
--- NOTE | 2017-07-01 20:16 | EKG REPORT ---
SEVERITY:- ABNORMAL ECG - SINUS RHYTHM PROBABLE LEFT ATRIAL ABNORMALITY LEFT VENTRICULAR HYPERTROPHY : Confirmed by: Camille Pollock 01-Jul-2017 20:15:05
[2017-07-01] MEDS ORDERED: INSULIN GLARGINE,HUM.REC.ANLOG 300 UNIT/3 ML INSULN.PEN SUBCUT SCH (22:00)
[2017-07-01] MEDS ORDERED: INSULIN GLARGINE HUM REC ANLOG 22 UNIT SQ SCH (22:00)
[2017-07-01] MEDS ORDERED: (PENDING PHARMACY ID) (Hydralazine Hcl [Hydralazine Hcl] 100 MG) PO SCH (22:00)
[2017-07-01] MEDS: INSULIN REG, HUMAN 100 UNIT/ML 3 ML VIAL (PYX) SUBCUT PRN (22:05)
[2017-07-01] MEDS: HEPARIN SOD (PORCINE) 5,000 UNIT/ML 1 ML SYRINGE SUBCUT SCH (22:06)
[2017-07-01] MEDS: PREGABALIN 75 MG CAPSULE PO SCH (22:11)
[2017-07-01] MEDS: HYDRALAZINE HCL 50 MG TABLET PO SCH (22:11)
[2017-07-01] MEDS: CARVEDILOL 12.5 MG TABLET PO SCH (22:11)
[2017-07-02] MEDS: HEPARIN SOD (PORCINE) 5,000 UNIT/ML 1 ML SYRINGE SUBCUT SCH ×2 (05:17→13:52)
[2017-07-02] MEDS: HYDRALAZINE HCL 50 MG TABLET PO SCH ×2 (05:17→13:52)
[2017-07-02 05:34] LABS: ALBUMIN 3.8 g/dL (3.5-5.0); BLOOD UREA NITROGEN 82 mg/dL (7-20); CALCIUM 10.4 mg/dL (8.4-10.2); CARBON DIOXIDE 24 mmol/L (22-30); CHLORIDE 96 mmol/L (98-107); GLUCOSE 227 mg/dL (75-110); PHOSPHORUS 8.7 mg/dL (2.5-4.5); POTASSIUM 3.7 mmol/L (3.6-5.0)
[2017-07-02 05:50] LABS: ANION GAP 23 (5-19)
[2017-07-02] MEDS: CALCIUM ACETATE 667 MG CAPSULE PO SCH ×2 (08:01→11:04)
[2017-07-02] MEDS: INSULIN REG, HUMAN 100 UNIT/ML 3 ML VIAL (PYX) SUBCUT PRN ×2 (08:47→13:51)
[2017-07-02] MEDS ORDERED: POLYETHYLENE GLYCOL 3350 POWDER 17 GM/1 PACKET PO SCH (10:00)
[2017-07-02] MEDS: CARVEDILOL 12.5 MG TABLET PO SCH (11:04)
[2017-07-02] MEDS: PREGABALIN 75 MG CAPSULE PO SCH (11:04)
[2017-07-02 12:50] VITALS: BP 130/77
--- NOTE | 2017-07-02 15:03 | PDOC DISCHARGE SUMMARY ---
General - Admit/Disc Date/PCP Admission Date/Primary Care Provider: 07/01/17 17:13 JULIA GOMEZ PA-C Discharge Date: 07/02/17 - Discharge Diagnosis (1) Volume overload Is this a current diagnosis for this admission?: Yes Summary: She received urgent peritoneal dialysis coordinated by nephrology. She is now requesting to be discharged. (2) Diabetes mellitus type 2 in obese Is this a current diagnosis for this admission?: Yes Summary: Home medications continued (3) ESRD (end stage renal disease) on dialysis Is this a current diagnosis for this admission?: Yes Summary: Continued peritoneal dialysis. Strongly encouraged to adhere to her fluid restriction. (4) Hypertension Is this a current diagnosis for this admission?: Yes Summary: Improved after dialysis. (5) Diabetic nephropathy Is this a current diagnosis for this admission?: Yes (6) Morbid obesity with BMI of 50.0-59.9, adult Is this a current diagnosis for this admission?: Yes - Additional Information Resuscitation Status: Full Code Discharge Diet: As Tolerated Discharge Activity: Activity As Tolerated Home Medications: Carvedilol [Coreg 25 mg Tablet] 25 mg PO Q12 04/29/17 Hydralazine HCl 100 mg PO Q8 04/29/17 Insulin Glargine,Hum.rec.anlog [Toujeo Solostar] 26 units SQ QHS 04/29/17 Insulin Lispro [Humalog Kwikpen U-100] 6 units SQ MEALS 04/29/17 Pregabalin [Lyrica 75 mg Capsule] 75 mg PO Q12 04/29/17 Ammonium Lactate [Lac-Hydrin 12% Lotion 225Gm/Bottle] 1 applic TP BID 07/01/17 Calcium Acetate [Phoslo 667 mg Capsule] 1,334 mg PO MEALS 07/01/17 Cephalexin [Keflex] 250 mg PO Q8 MDD FOR 10DAYS STARTING 06/25/17 07/01/17 Fluconazole [Diflucan 100 mg Tablet] 100 mg PO DAILY MDD FOR 10DAYS STARTING 06/2607/01/17 Potassium Chloride [Klor-Con 10 Meq Tablet.sa] 20 meq PO DAILY 07/01/17 History of Present Illness Patient complains of: Short of breath History of Present Illness: JASPREET STAFFORD is a 51 year old super morbidly obese female on peritoneal dialysis. She has had progressive shortness of breath and came into the emergency department. She states she is unable to obtain rapid dialysis supplies. So we have been asked to put her in so she can get dialyzed here. Her only other complaint is that she is hungry Hospital Course Hospital Course: She was dialyzed by nephrology. She is now requesting to go home. Nephrology gave a collection of orders to be done before and after discharge and they will follow her as an outpatient Physical Exam Vital Signs: Temp Pulse Resp BP Pulse Ox 97.5 F 71 16 130/77 H 100 07/02/17 13:25 07/02/17 13:25 07/02/17 13:25 07/02/17 13:25 07/02/17 13:25 Intake & Output 07/01/17 07/02/17 07/03/17 05:59 05:59 05:59 Intake Total 6640 5000 Output Total 4500 9000 Balance 2140 -4000 Weight 380 lb 1.231 oz 373 lb 14.464 oz General appearance: PRESENT: no acute distress, morbidly obese Respiratory exam: PRESENT: clear to auscultation shira - Very distant breath sounds Cardiovascular exam: PRESENT: RRR GI/Abdominal exam: PRESENT: soft, other - Dialysis catheter in place without evidence of infection Extremities exam: PRESENT: +1 edema Neurological exam: PRESENT: alert Psychiatric exam: PRESENT: appropriate affect Skin exam: PRESENT: warm Results Laboratory Results: 07/02/17 04:07 07/02/17 04:07 Sodium 143.0 Potassium 3.7 Chloride 96 L Carbon Dioxide 24 Anion Gap 23 H BUN 82 H Creatinine 17.58 H Est GFR ( Amer) 3 L Est GFR (Non-Af Amer) 2 L Glucose 227 H Calcium 10.4 H Phosphorus 8.7 H Magnesium 2.1 Albumin 3.8 Impressions: Chest X-Ray 07/01/17 15:10 IMPRESSION: Moderate cardiomegaly. No acute changes Qualifiers - * PATIENT BEING DISCHARGED WITH ANY OF THE FOLLOWING DIAGNOSIS: No
[2017-07-02] MEDS ORDERED: FOLIC ACID/VITAMIN B COMP W-C CAPSULE PO SCH (16:00)
== END 2017-07-02 14:00 | disposition home or self-care (01) | DRG 291 ==
LOC: ER 13:47 → EH 17:13 → 5 19:40
PROVIDERS: ADMIT Internal Medicine; ATTEND Internal Medicine
DX: I13.2 Hypertensive heart and chronic kidney disease with heart failure and with stage 5 chronic kidney disease, or end stage renal disease (principal); N18.6 End stage renal disease; I50.32 Chronic diastolic (congestive) heart failure; Z68.43 Body mass index [BMI] 50.0-59.9, adult; E87.79 Other fluid overload; E11.22 Type 2 diabetes mellitus with diabetic chronic kidney disease; E11.21 Type 2 diabetes mellitus with diabetic nephropathy; D63.1 Anemia in chronic kidney disease; K21.9 Gastro-esophageal reflux disease without esophagitis; E66.01 Morbid (severe) obesity due to excess calories; Z99.2 Dependence on renal dialysis; Z79.4 Long term (current) use of insulin; Z79.899 Other long term (current) drug therapy
CPT/HCPCS: 36415; 71046; 80048; 80069; 82962; 83735; 83880; 84484; 85025; 90945; 93005; 93010; 99284; J1644; J1815

== ENCOUNTER 2017-07-10 18:29 | Emergency (ER) | payer MEDICARE, MEDICAID ==
--- NOTE | 2017-07-10 19:29 | ER Document Report ---
ED Dialysis Cath/Shunt Problem - General Chief Complaint: Dialysis Catheter Problem Stated Complaint: PROB WITH PORT LEAKING Time Seen by Provider: 07/10/17 19:09 Notes: Patient is a 51-year-old female that comes emergency department for chief complaint of peritoneal dialysis port leaking. She states that when she got into the shower the line began to spray in the shower, she clamped the line, the client is currently still in place. She states she called Dr. Moran her director compensation and primary care and she was told to come to the emergency department evaluation. She denies any other complaints. She is due for her next exchange at 2100. TRAVEL OUTSIDE OF THE [place] IN LAST 30 DAYS: No - Related Data Allergies/Adverse Reactions: oxycodone HCl [From Percocet] Allergy (Verified 07/01/17 13:59) Nausea prochlorperazine edisylate [From Compazine] Allergy (Verified 07/01/17 13:59) Hallucinations prochlorperazine maleate [From Compazine] Allergy (Verified 07/01/17 13:59) Hallucinations propoxyphene napsylate [From Darvocet-N 100] Allergy (Verified 07/01/17 13:59) Hallucinations Past Medical History - General Information source: Patient - Social History Smoking Status: Never Smoker Frequency of alcohol use: None Drug Abuse: None Lives with: Family Family History: DM, Hypertension Patient has suicidal ideation: No Patient has homicidal ideation: No - Past Medical History Cardiac Medical History: Reports: Hx Congestive Heart Failure, Hx Hypercholesterolemia, Hx Hypertension Denies: Hx Heart Attack Pulmonary Medical History: Reports: Hx Asthma, Hx Pneumonia, Hx Sleep Apnea Denies: Hx Bronchitis, Hx COPD Neurological Medical History: Denies: Hx Seizures Endocrine Medical History: Reports: Hx Diabetes Mellitus Type 1, Hx Diabetes Mellitus Type 2 Renal/ Medical History: Reports: Hx End Stage Renal Disease - Peritoneal dialysis, Hx Kidney Stones. Denies: Hx Peritoneal Dialysis GI Medical History: Reports: Hx Gastroesophageal Reflux Disease Musculoskeltal Medical History: Denies Hx Arthritis Psychiatric Medical History: Reports: Hx Depression Infectious Medical History: Denies: Hx MRSA Past Surgical History: Reports: Hx Abdominal Surgery - peritoneal dialysis fistula, Hx Hysterectomy, Hx Tubal Ligation, Other - Peritoneal dialysis catheter placement - Immunizations Immunizations up to date: No Hx Diphtheria, Pertussis, Tetanus Vaccination: Yes - 2013 Hx Pneumococcal Vaccination: 11/19/11 Review of Systems - Review of Systems Constitutional: No symptoms reported EENT: No symptoms reported Cardiovascular: No symptoms reported Respiratory: No symptoms reported Gastrointestinal: See HPI Genitourinary: See HPI Female Genitourinary: No symptoms reported Musculoskeletal: No symptoms reported Skin: No symptoms reported Hematologic/Lymphatic: No symptoms reported Neurological/Psychological: No symptoms reported Physical Exam - Vital signs Vitals: Temp Pulse Resp BP Pulse Ox 98.2 F 86 16 123/78 96 07/10/17 18:33 07/10/17 18:33 07/10/17 18:33 07/10/17 18:33 07/10/17 18:33 Interpretation: Normal - General General appearance: Appears well, Alert In distress: None - HEENT Head: Normocephalic, Atraumatic Eyes: Normal Pupils: PERRL - Respiratory Respiratory status: No respiratory distress Chest status: Nontender Breath sounds: Normal. No: Decreased air movement, Wheezing Chest palpation: Normal - Cardiovascular Rhythm: Regular. No: Tachycardia Heart sounds: Normal auscultation, S1 appreciated, S2 appreciated Murmur: No - Abdominal Inspection: Normal, Other - peritoneal dialysis tubing in place in the left lower abdomen; tubing has a hole just before the attachement for the transfer unit Distension: No distension Bowel sounds: Normal Tenderness: Nontender. No: Tender, Guarding - Back Back: Normal, Nontender. No: Tender - Extremities General upper extremity: Normal inspection, Nontender, Normal strength, Normal temperature General lower extremity: Normal inspection, Nontender, Normal strength, Normal temperature - Neurological Neuro grossly intact: Yes Cognition: Normal Orientation: AAOx4 Meghan Coma Scale Eye Opening: Spontaneous Kemp Coma Scale Verbal: Oriented Kemp Coma Scale Motor: Obeys Commands Kemp Coma Scale Total: 15 Speech: Normal Motor strength normal: LUE, RUE, LLE, RLE Sensory: Normal - Psychological Associated symptoms: Normal affect, Normal mood - Skin Skin Temperature: Warm Skin Moisture: Dry Skin Color: Normal Course - Re-evaluation Re-evalutation: Patient with no complaints other than her leaking peritoneal dialysis port, she is well-appearing on exam, unremarkable vital signs. Unfortunately upon examination the tubing just before the transfer catheter has a hole (cannot just exchange the attachment) called and spoke with Dr. Morna, patient's provider in the provider who sent the patient to the emergency department. She requests that. The tubing be cut just before the hole, this will be done with a sterile procedure, the tubing will be soaked in Betadine for about 2 minutes before attaching the new attachment for the removeable transfer piece to connect with. Procedure performed in sterile fashion, performed without difficulty, no leaking of the piece. Patient is to follow-up with Dr. Moran tomorrow per her recommendations. Patient states she will be seen tomorrow by her provider. - Vital Signs Vital signs: Temp Pulse Resp BP Pulse Ox 98.0 F 81 16 154/94 H 99 07/10/17 21:07 07/10/17 21:07 07/10/17 21:07 07/10/17 21:07 07/10/17 21:07 Procedures - Additional Procedures replaced peritoneal dialysis tubing attachement Notes: Left lower abdominal peritoneal dialysis port tubing replacement was performed. This was performed using a sterile field, masks and sterile gloves were used, patient had a mask placed on her as well. Tubing was clamped with hemostat, her clamp was removed, tubing was cut behind the broken area, end of the cut tube was placed in Betadine for about 3 minutes allowed to soak, new attachment was placed over the tubing and then secured with the second piece, no attachment was then placed. No complications. No leaking noted. Discharge - Discharge Clinical Impression: Peritoneal dialysis catheter dysfunction Qualifiers: Encounter type: initial encounter Qualified Code(s): T85.611A - Breakdown ( mechanical) of intraperitoneal dialysis catheter, initial encounter Condition: Stable Disposition: HOME, SELF-CARE Additional Instructions: Follow up tomorrow with Dr. Moran to have the tubing and setup checked. Return to the ED for any concerning symptoms. Referrals: JULIA GOMEZ PA-C [Primary Care Provider] - Follow up as needed
[2017-07-10 21:10] VITALS: BP 154/94
== END 2017-07-10 21:10 | disposition home or self-care (01) ==
LOC: ER 18:29
DX: T85.611A Breakdown (mechanical) of intraperitoneal dialysis catheter, initial encounter (principal); I10 Essential (primary) hypertension; J45.909 Unspecified asthma, uncomplicated; E11.9 Type 2 diabetes mellitus without complications; Z99.2 Dependence on renal dialysis
CPT/HCPCS: 99284

== ENCOUNTER 2017-08-25 17:23 | Emergency (ER) | payer MEDICARE, MEDICAID ==
[2017-08-25] MEDS ORDERED: CLINDAMYCIN HCL 150 MG CAPSULE PO ONE (19:03)
--- NOTE | 2017-08-25 19:05 | ER Document Report ---
ED General - General Chief Complaint: Abdominal Pain Stated Complaint: STOMACH PAIN Time Seen by Provider: 08/25/17 18:36 Notes: Patient is a 51 year old female with a history of morbid obesity, peritoneal dialysis dependent who presents with a "lump" that is painful just below the site of her PD catheter entry site. She notes that this area has swollen over the past 2-3 days and is gotten increasingly more painful. She notes a dull, throbbing, constant pain worsened by touching the area. Nothing improves the pain. She has not seen her primary doctor regarding today's concerns. She denies any associated fever or constitutional. Her PD fluid has continued to be clear and she denies any generalized abdominal pain. No history of similar symptoms in the past. TRAVEL OUTSIDE OF THE [place] IN LAST 30 DAYS: No - Related Data Allergies/Adverse Reactions: oxycodone HCl [From Percocet] Allergy (Verified 08/25/17 17:24) Nausea prochlorperazine edisylate [From Compazine] Allergy (Verified 08/25/17 17:24) Hallucinations prochlorperazine maleate [From Compazine] Allergy (Verified 08/25/17 17:24) Hallucinations propoxyphene napsylate [From Darvocet-N 100] Allergy (Verified 08/25/17 17:24) Hallucinations Past Medical History - General Information source: Patient - Social History Smoking Status: Never Smoker Chew tobacco use (# tins/day): No Frequency of alcohol use: None Drug Abuse: None Lives with: Family Family History: DM, Hypertension Patient has suicidal ideation: No Patient has homicidal ideation: No - Past Medical History Cardiac Medical History: Reports: Hx Congestive Heart Failure, Hx Hypercholesterolemia, Hx Hypertension Denies: Hx Heart Attack Pulmonary Medical History: Reports: Hx Asthma, Hx Pneumonia, Hx Sleep Apnea Denies: Hx Bronchitis, Hx COPD Neurological Medical History: Denies: Hx Seizures Endocrine Medical History: Reports: Hx Diabetes Mellitus Type 1, Hx Diabetes Mellitus Type 2 Renal/ Medical History: Reports: Hx End Stage Renal Disease - Peritoneal dialysis, Hx Kidney Stones, Hx Peritoneal Dialysis - due @ 2100 GI Medical History: Reports: Hx Gastroesophageal Reflux Disease Musculoskeltal Medical History: Denies Hx Arthritis Psychiatric Medical History: Reports: Hx Depression Infectious Medical History: Denies: Hx MRSA Past Surgical History: Reports: Hx Abdominal Surgery - peritoneal dialysis fistula, Hx Hysterectomy, Hx Tubal Ligation, Other - Peritoneal dialysis catheter placement - Immunizations Immunizations up to date: No Hx Diphtheria, Pertussis, Tetanus Vaccination: Yes - 2013 Hx Pneumococcal Vaccination: 11/19/11 Review of Systems - Review of Systems Notes: Constitutional: Negative for fever. HENT: Negative for sore throat. Eyes: Negative for visual changes. Cardiovascular: Negative for chest pain. Respiratory: Negative for shortness of breath. Gastrointestinal: Negative for abdominal pain, vomiting or diarrhea. Genitourinary: Negative for dysuria. Musculoskeletal: Negative for back pain. Skin: Positive for abdominal wall abscess Neurological: Negative for headaches, weakness or numbness. 10 point ROS negative except as marked above and in HPI. Physical Exam - Vital signs Vitals: Temp Pulse Resp BP Pulse Ox 98.9 F 95 19 153/81 H 96 08/25/17 17:28 08/25/17 17:28 08/25/17 17:28 08/25/17 17:28 08/25/17 17:28 Interpretation: Hypertensive Notes: PHYSICAL EXAMINATION: GENERAL: Well-appearing, well-nourished and in no acute distress. HEAD: Atraumatic, normocephalic. EYES: Pupils equal round and reactive to light, extraocular movements intact, sclera anicteric, conjunctiva are normal. ENT: nares patent, oropharynx clear without exudates. Moist mucous membranes. NECK: Normal range of motion, supple without lymphadenopathy LUNGS: Breath sounds clear to auscultation bilaterally and equal. No wheezes rales or rhonchi. HEART: Regular rate and rhythm without murmurs ABDOMEN: Soft, obese abdomen, nontender, normoactive bowel sounds. No guarding , no rebound. No masses appreciated. EXTREMITIES: Normal range of motion, no pitting or edema. No cyanosis. NEUROLOGICAL: No focal neurological deficits. Moves all extremities spontaneously and on command. PSYCH: Normal mood, normal affect. SKIN: Warm, Dry, normal turgor, there is a small 0.25 x 0.25 abscess just below the site of the PD catheter site entry Course - Re-evaluation Re-evalutation: 08/25/17 19:03 Patient presents with a small, 0.25 x 0.25 cm abscess just below her PD catheter entry site consistent with a superficial cutaneous abscess. This was confirmed on bedside ultrasound that did show a small pocket of fluid collection. A incision and drainage was completed under sterile conditions with expression of approximately 2 cc of purulent drainage and patient had significant relief of her discomfort to the area. She has not started on clindamycin and I will avoid trimethoprim sulfamethoxazole due to the risk of hyperkalemia in the setting of a patient with dialysis dependence. She is scheduled to see her chair lift operator tomorrow in the office and I have asked her to review today's care with the chair lift operator. Patient did also mention that she had had some diarrhea today but at the time of my assessment she states that it has now stopped and she no longer has concerns regarding this issue. Vitals are otherwise within acceptable limits with the exception of mild hypertension. At this time will discharge with return precautions and follow- up recommendations. Verbal discharge instructions given a the bedside and opportunity for questions given. Medication warnings reviewed. Patient is in agreement with this plan and has verbalized understanding of return precautions and the need for primary care follow-up in the next 24-72 hours. 08/26/17 03:19 - Vital Signs Vital signs: Temp Pulse Resp BP Pulse Ox 97.4 F 85 20 186/102 H 96 08/25/17 19:17 08/25/17 19:17 08/25/17 19:17 08/25/17 19:17 08/25/17 19:17 Procedures - Incision and Drainage Abdomen Type: Simple Anesthetic type: 1% Lidocaine mL's of anesthetic: 1 Blade size: 11 I&D procedure: Betadine prep applied Incision Method: Incision made by scalpel Amount/type of drainage: 1 cc of purulent drainage Discharge - Discharge Clinical Impression: Cutaneous abscess of abdominal wall, History of peritoneal dialysis Condition: Good Disposition: HOME, SELF-CARE Additional Instructions: You were seen for an abscess that required drainage. Please clean this area with soap and water twice daily and apply a topical antibiotic. Dress the area after each cleaning. Please return if you develop fever, vomiting, the pain at the site worsens, you notice spreading redness from the area, or you have any other symptoms that are concerning to you. Prescriptions: Clindamycin HCl 300 mg PO TID #21 capsule Referrals: LIDIA PARKS MD [Primary Care Provider] - Follow up as needed
[2017-08-25 19:19] VITALS: BP 186/102
== END 2017-08-25 19:45 | disposition home or self-care (01) ==
LOC: ER 17:23
PROC: 0H97XZZ Drainage of Abdomen Skin, External Approach (ICD-10-PCS; principal; 2017-08-25)
DX: L02.211 Cutaneous abscess of abdominal wall (principal); R10.9 Unspecified abdominal pain; E66.01 Morbid (severe) obesity due to excess calories; E11.22 Type 2 diabetes mellitus with diabetic chronic kidney disease; I13.2 Hypertensive heart and chronic kidney disease with heart failure and with stage 5 chronic kidney disease, or end stage renal disease; I50.9 Heart failure, unspecified; N18.6 End stage renal disease; Z99.2 Dependence on renal dialysis; Z90.710 Acquired absence of both cervix and uterus
CPT/HCPCS: 99283

== ENCOUNTER 2017-09-07 04:40 | Emergency (ER) | payer MEDICARE, MEDICAID ==
[2017-09-07] MEDS ORDERED: ONDANSETRON 4 MG TAB.RAPDIS PO ONE (04:58)
--- NOTE | 2017-09-07 05:05 | ER Document Report ---
ED GI/ - General Mode of Arrival: Medic Information source: Patient TRAVEL OUTSIDE OF THE [place] IN LAST 30 DAYS: No <CYNTHIA CARRIZALES - Last Filed: 09/07/17 04:59> <DARLENE BOYKIN - Last Filed: 09/07/17 07:04> - General Chief Complaint: Vomiting Stated Complaint: DIABETIC ISSUE Time Seen by Provider: 09/07/17 04:49 Notes: 51-year-old female who presents today with complaints of nausea and vomiting prior to arrival. Patient states she ate dinner at about 1900 last night and was awoken today at 0100 with nausea and she "vomited up all that she ate". Patient states she had a few more episodes of dry heaves after the initial emesis occurred. Patient now complains of a frontal headache and generalized abdominal "soreness" from the vomiting. Patient also mentions left foot swelling. Patient denies any fevers. (CYNTHIA CARRIZALES) - Related Data Allergies/Adverse Reactions: oxycodone HCl [From Percocet] Allergy (Verified 09/07/17 04:55) Nausea prochlorperazine edisylate [From Compazine] Allergy (Verified 09/07/17 04:55) Hallucinations prochlorperazine maleate [From Compazine] Allergy (Verified 09/07/17 04:55) Hallucinations propoxyphene napsylate [From Darvocet-N 100] Allergy (Verified 09/07/17 04:55) Hallucinations Past Medical History - General Information source: Patient - Social History Smoking Status: Never Smoker Cigarette use (# per day): No Frequency of alcohol use: None Drug Abuse: None Family History: Reviewed & Not Pertinent, DM, Hypertension - Past Medical History Cardiac Medical History: Reports: Hx Congestive Heart Failure, Hx Hypercholesterolemia, Hx Hypertension Pulmonary Medical History: Reports: Hx Asthma, Hx Pneumonia, Hx Sleep Apnea Endocrine Medical History: Reports: Hx Diabetes Mellitus Type 2 Renal/ Medical History: Reports: Hx End Stage Renal Disease - Peritoneal dialysis, Hx Kidney Stones, Hx Peritoneal Dialysis - due @ 2100 GI Medical History: Reports: Hx Gastroesophageal Reflux Disease Psychiatric Medical History: Reports: Hx Depression Past Surgical History: Reports: Hx Abdominal Surgery - peritoneal dialysis fistula, Hx Hysterectomy, Hx Tubal Ligation, Other - Peritoneal dialysis catheter placement - Immunizations Immunizations up to date: No Hx Diphtheria, Pertussis, Tetanus Vaccination: Yes - 2013 Hx Pneumococcal Vaccination: 11/19/11 <CYNTHIA CARRIZALES - Last Filed: 09/07/17 04:59> Review of Systems - Review of Systems Constitutional: denies: Fever EENT: No symptoms reported Cardiovascular: No symptoms reported Respiratory: No symptoms reported Gastrointestinal: See HPI, Nausea, Vomiting Genitourinary: No symptoms reported Female Genitourinary: No symptoms reported Musculoskeletal: See HPI, Other - left foot/ankle swelling Skin: No symptoms reported Hematologic/Lymphatic: No symptoms reported Neurological/Psychological: See HPI, Headaches -: Yes All other systems reviewed and negative <SOFIELORRAINECYNTHIA - Last Filed: 09/07/17 04:59> Physical Exam <SOFIELORRAINECYNTHIA - Last Filed: 09/07/17 04:59> <DARLENE BOYKIN - Last Filed: 09/07/17 07:04> - Vital signs Vitals: Temp Pulse Resp BP Pulse Ox 98.1 F 94 19 177/107 H 95 09/07/17 04:41 09/07/17 04:41 09/07/17 04:41 09/07/17 04:41 09/07/17 04:41 - Notes Notes: Physical Exam: General: Alert, morbidly obese. HEENT: Normocephalic. Atraumatic. PERRL. Extraocular movements intact. Oropharynx clear. Neck: Supple. Non-tender. Respiratory: No respiratory distress. Clear and equal breath sounds bilaterally. Cardiovascular: Regular rate and rhythm. Abdominal: Morbidly obese. Minimal diffuse tenderness with palpation. No distension. Normal Bowel Sounds. Back: Non-tender. No deformity or step off. Extremities: Moves all four extremities. Upper extremities: Normal inspection. Normal ROM. Lower extremities: Trace pitting edema bilaterally, 1+ edema over left lateral foot/ankle. Neurological: Normal cognition. AAOx4. Normal speech. Psychological: Normal affect. Normal Mood. Skin: Warm. Dry. Normal color. (CYNTHIA CARRIZALES) Course <CYNTHIA CARRIZALES - Last Filed: 09/07/17 04:59> - Laboratory Result Diagrams: 09/07/17 05:32 09/07/17 05:32 - EKG Interpretation by Ri EKG shows normal: Sinus rhythm, [place], Intervals, QRS Complexes, ST-T Waves Rate: Normal - 87 [place]/QRS: IVCD Voltage: Consistant with LVH Heart block present: 1st Degree <DARLENE BOYKIN - Last Filed: 09/07/17 07:04> - Re-evaluation Re-evalutation: 09/07/17 06:39 Patient is feeling better now. She has been sleeping for a while. Nauseousness is better. She refused the Zofran when it was offered. Blood pressure is down to 169 systolic, it was about 200 systolic prior to the medications. Her blood sugar was 230, obviously her shakiness at home was not due to hypoglycemia. 09/07/17 07:03 EKG does not show any acute changes. Troponin is in the high indeterminate range as it frequently is due to her chronic renal failure. She will be discharged to take only small sips cool clear liquids throughout the day until her nauseousness is no longer a problem with work starting to eat again. She will be given a dispensed pack of Zofran to take for nausea if needed. (DARLENE BOYKIN) - Vital Signs Vital signs: Temp Pulse Resp BP Pulse Ox 98.1 F 94 20 169/89 H 96 09/07/17 04:41 09/07/17 04:41 09/07/17 06:31 09/07/17 06:31 09/07/17 06:31 - Laboratory Laboratory results interpreted by me: 09/07/17 09/07/17 05:32 05:32 Hgb 9.7 L Hct 29.8 L MCV 79 L MCH 25.8 L RDW 16.5 H Chloride 96 L BUN 74 H Creatinine 18.54 H Est GFR ( Amer) 2 L Est GFR (Non-Af Amer) 2 L Glucose 230 H Uric Acid 8.0 H Direct Bilirubin 0.5 H Alkaline Phosphatase 155 H Creatine Kinase 189 H Discharge <CYNTHIA CARRIZALES - Last Filed: 09/07/17 04:59> <DARLENE BOYKIN - Last Filed: 09/07/17 07:04> - Discharge Clinical Impression: Elevated blood pressure reading, Elevated blood sugar, Chronic renal failure, stage 5 Nausea and vomiting Qualifiers: Vomiting type: unspecified Vomiting Intractability: non-intractable Qualified Code(s): R11.2 - Nausea with vomiting, unspecified Additional Instructions: Nausea or Vomiting, Nonspecific Vomiting (or nausea without vomiting) can be caused by many different problems. Of course, it can mean that something's wrong with the stomach, such as "stomach flu," ulcers, or inflammation. But it can also be a symptom of a problem that has nothing to do with the stomach or intestines. Vomiting is common with severe headaches, earaches, and tonsillitis. We see it with pneumonia or heart attacks. Drugs can cause nausea. Many abdominal problems cause vomiting; for example, gallstones, kidney stones, pancreatitis, and intestinal obstruction (blocked bowels). In most cases, curing the vomiting depends on fixing the problem that caused it. For temporary relief, we may use an anti-nausea medicine. For home use, we can prescribe suppositories, chewable pills, pills that dissolve in the mouth, or liquid anti-nausea drugs. If the vomiting seems to be caused by a problem in the stomach, acid-suppressing drugs may be prescribed as well. It's important to avoid dehydration. Sip clear liquids. Take increasing amounts of fluid over the first 24 hours. Then start small amounts of bland foods (such as dry toast, applesauce, mashed potato). Avoid aspirin, tobacco, and alcohol. Gradually resume your usual diet. If the vomiting worsens, if the problem that's making you vomit worsens, or if there's evidence of bleeding in the stomach (such as black, tarry stool, bloody or black vomit, or lightheadedness), you should return immediately. Call your doctor if you aren't improved in 24 to 36 hours. Take the Zofran as dispensed for nausea if needed. Drink small sips of cool clear liquids today. Start eating again later today or tonight if there is no more nauseousness. Start your peritoneal dialysis exchange when you get home. Follow-up with your doctor if not improving. RETURN TO THE EMERGENCY ROOM IF ANY NEW OR WORSENING SYMPTOMS. Referrals: LIDIA PARKS MD [ACTIVE STAFF] - Follow up as needed Scribe Attestation: 09/07/17 05:49 I personally performed the services described in the documentation, reviewed and edited the documentation which was dictated to the scribe in my presence, and it accurately records my words and actions. (DARLENE BOYKIN) Scribe Documentation - Scribe Written by Scrdrue:: Ruth Caal, 09/07/2017 0504 acting as scribe for :: Patito <CYNTHIA CARRIZALES - Last Filed: 09/07/17 04:59>
[2017-09-07 06:01] LABS: ABSOLUTE BASOPHILS # (AUTO) 0.1 10^3/uL (0.0-0.2); ABSOLUTE EOSINOPHILS # (AUTO) 0.5 10^3/uL (0.0-0.6); ABSOLUTE LYMPHOCYTES (AUTO) 1.9 10^3/uL (0.5-4.7); ABSOLUTE MONOCYTES (AUTO) 0.9 10^3/uL (0.1-1.4); BASOPHILS % (AUTO) 1.3 % (0-2); EOSINOPHILS % (AUTO) 5.5 % (0-6); HEMATOCRIT 29.8 % (36.0-47.0); HEMOGLOBIN 9.7 g/dL (12.0-15.5); LYMPHOCYTES % (AUTO) 22.3 % (13-45); MEAN CORPUSCULAR HEMOGLOBIN 25.8 pg (27.0-33.4); MEAN CORPUSCULAR HGB CONC 32.6 g/dL (32.0-36.0); MEAN CORPUSCULAR VOLUME 79 fl (80-97); MONOCYTES % (AUTO) 10.3 % (3-13); PLATELET COUNT 200 10^3/uL (150-450); RED BLOOD COUNT 3.77 10^6/uL (3.72-5.28); RED CELL DISTRIBUTION WIDTH 16.5 % (11.5-14.0); SEGMENTED NEUTROPHILS % (AUTO) 60.6 % (42-78); TOTAL CELLS COUNTED % (AUTO) 100 %; WHITE BLOOD COUNT 8.3 10^3/uL (4.0-10.5)
[2017-09-07 06:21] LABS: ALANINE AMINOTRANSFERASE 33 U/L (9-52); ALBUMIN 3.7 g/dL (3.5-5.0); ALKALINE PHOSPHATASE 155 U/L (38-126); ANION GAP 19 (5-19); ASPARTATE AMINO TRANSFERASE 24 U/L (14-36); BILIRUBIN,DIRECT 0.5 mg/dL (0.0-0.4); BILIRUBIN,TOTAL 0.5 mg/dL (0.2-1.3); BLOOD UREA NITROGEN 74 mg/dL (7-20); CALCIUM 9.9 mg/dL (8.4-10.2); CARBON DIOXIDE 26 mmol/L (22-30); CHLORIDE 96 mmol/L (98-107); CREATINE KINASE 189 U/L (30-135); GLUCOSE 230 mg/dL (75-110); POTASSIUM 3.6 mmol/L (3.6-5.0); SODIUM 140.8 mmol/L (137-145); TOTAL PROTEIN 7.3 g/dL (6.3-8.2)
[2017-09-07 06:51] VITALS: BP 169/89
[2017-09-07] MEDS ORDERED: ONDANSETRON ODT 4 MG TAB (6 TAB/ER DISP) PO PRN (07:04)
--- NOTE | 2017-09-07 09:43 | EKG REPORT ---
SEVERITY:- ABNORMAL ECG - SINUS RHYTHM FIRST DEGREE AV BLOCK NONSPECIFIC INTRAVENTRICULAR CONDUCTION DELAY PROBABLE LEFT VENTRICULAR HYPERTROPHY : Confirmed by: Camille Pollock 07-Sep-2017 09:42:36
== END 2017-09-07 07:28 | disposition home or self-care (01) ==
LOC: ER 04:40
DX: E11.22 Type 2 diabetes mellitus with diabetic chronic kidney disease (principal); R11.2 Nausea with vomiting, unspecified; I13.2 Hypertensive heart and chronic kidney disease with heart failure and with stage 5 chronic kidney disease, or end stage renal disease; N18.5 Chronic kidney disease, stage 5; I50.9 Heart failure, unspecified; E78.00 Pure hypercholesterolemia, unspecified; Z99.2 Dependence on renal dialysis; Z87.442 Personal history of urinary calculi; Z90.710 Acquired absence of both cervix and uterus
CPT/HCPCS: 93005; 99284; 36415; 87040; 82550; 83735; 84550; 85025; 80053; 84484; 93010; A9270

== ENCOUNTER 2017-10-19 18:51 | Emergency (ER) | payer MEDICARE, MEDICAID ==
[2017-10-19] MEDS ORDERED: NORMAL SALINE 250 ML IV ONE (19:46)
[2017-10-19] MEDS ORDERED: ONDANSETRON HCL INJ/PF 4 MG/2 ML SDV IV ONE (19:46)
--- NOTE | 2017-10-19 19:47 | ER Document Report ---
ED Medical Screen (RME) - General Chief Complaint: Nausea Stated Complaint: NAUSEA,DIZZY Time Seen by Provider: 10/19/17 19:42 TRAVEL OUTSIDE OF THE [place] 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 Moran - Related Data Allergies/Adverse Reactions: oxycodone HCl [From Percocet] Allergy (Verified 09/07/17 04:55) Nausea prochlorperazine edisylate [From Compazine] Allergy (Verified 09/07/17 04:55) Hallucinations prochlorperazine maleate [From Compazine] Allergy (Verified 09/07/17 04:55) Hallucinations propoxyphene napsylate [From Darvocet-N 100] Allergy (Verified 09/07/17 04:55) Hallucinations Past Medical History - Social History Family history: Reviewed & Not Pertinent - Past Medical History Cardiac Medical History: Reports: Hx Congestive Heart Failure, Hx Hypercholesterolemia, Hx Hypertension Pulmonary Medical History: Reports: Hx Asthma, Hx Pneumonia, Hx Sleep Apnea Endocrine Medical History: Reports: Hx Diabetes Mellitus Type 2 Renal/ Medical History: Reports: Hx End Stage Renal Disease - Peritoneal dialysis, Hx Kidney Stones, Hx Peritoneal Dialysis - due @ 2100 GI Medical History: Reports: Hx Gastroesophageal Reflux Disease Psychiatric Medical History: Reports: Hx Depression Past Surgical History: Reports: Hx Abdominal Surgery - peritoneal dialysis fistula, Hx Hysterectomy, Hx Tubal Ligation, Other - Peritoneal dialysis catheter placement - Immunizations Immunizations up to date: No Hx Diphtheria, Pertussis, Tetanus Vaccination: Yes - 2013 History of Influenza Vaccine for 11/2016 - 04/2017 Season: Yes Influenza Administration Date for 11/2016 - 04/2017 Season: 12/19/16 Review of Systems - Review of Systems Constitutional: Other - Nausea vomiting Physical Exam - Vital signs Vitals: Temp Pulse BP Pulse Ox 97.6 F 75 184/99 H 95 10/19/17 19:23 10/19/17 19:23 10/19/17 19:23 10/19/17 19:23 - Respiratory Respiratory status: No respiratory distress Chest status: Nontender Breath sounds: Normal Chest palpation: Normal - Abdominal Inspection: Morbidly Obese Course - Vital Signs Vital signs: Temp Pulse Resp BP Pulse Ox 97.6 F 75 184/99 H 95 10/19/17 19:23 10/19/17 19:23 10/19/17 19:23 10/19/17 19:23 Doctor's Discharge - Discharge Referrals: ARTUR MORA MD [Primary Care Provider] - Follow up as needed
[2017-10-19 19:57] LABS: ABSOLUTE BASOPHILS # (AUTO) 0.1 10^3/uL (0.0-0.2); ABSOLUTE EOSINOPHILS # (AUTO) 0.4 10^3/uL (0.0-0.6); ABSOLUTE LYMPHOCYTES (AUTO) 2.3 10^3/uL (0.5-4.7); ABSOLUTE NEUT (AUTO) 5.1 10^3/uL (1.7-8.2); BASOPHILS % (AUTO) 0.9 % (0-2); EOSINOPHILS % (AUTO) 4.4 % (0-6); HEMATOCRIT 27.1 % (36.0-47.0); HEMOGLOBIN 8.8 g/dL (12.0-15.5); LYMPHOCYTES % (AUTO) 25.4 % (13-45); MEAN CORPUSCULAR HEMOGLOBIN 25.8 pg (27.0-33.4); MEAN CORPUSCULAR HGB CONC 32.4 g/dL (32.0-36.0); MEAN CORPUSCULAR VOLUME 80 fl (80-97); MONOCYTES % (AUTO) 11.6 % (3-13); PLATELET COUNT 215 10^3/uL (150-450); RED CELL DISTRIBUTION WIDTH 18.5 % (11.5-14.0); SEGMENTED NEUTROPHILS % (AUTO) 57.7 % (42-78); TOTAL CELLS COUNTED % (AUTO) 100 %; WHITE BLOOD COUNT 8.9 10^3/uL (4.0-10.5)
[2017-10-19 20:05] LABS: ALANINE AMINOTRANSFERASE 29 U/L (9-52); ALBUMIN 3.9 g/dL (3.5-5.0); ALKALINE PHOSPHATASE 136 U/L (38-126); ASPARTATE AMINO TRANSFERASE 19 U/L (14-36); BILIRUBIN,DIRECT 0.4 mg/dL (0.0-0.4); BILIRUBIN,TOTAL 0.4 mg/dL (0.2-1.3); BLOOD UREA NITROGEN 86 mg/dL (7-20); CALCIUM 10.5 mg/dL (8.4-10.2); GLUCOSE 117 mg/dL (75-110); LIPASE 283.3 U/L (23-300); POTASSIUM 3.8 mmol/L (3.6-5.0); TOTAL PROTEIN 7.3 g/dL (6.3-8.2)
[2017-10-19 20:11] LABS: CARBON DIOXIDE 26 mmol/L (22-30); CHLORIDE 93 mmol/L (98-107)
[2017-10-19 20:13] LABS: ANION GAP 22 (5-19)
[2017-10-19] MEDS ORDERED: METOCLOPRAMIDE HCL INJ/PF 10 MG/2 ML SDV IV ONE (20:36)
--- NOTE | 2017-10-19 20:50 | ER Document Report ---
ED General - General Chief Complaint: Nausea Stated Complaint: NAUSEA,DIZZY Time Seen by Provider: 10/19/17 19:42 TRAVEL OUTSIDE OF THE [place] IN LAST 30 DAYS: No - HPI Notes: Patient presents to the emergency room for nausea, vomiting and lightheadedness. She reports feeling lightheaded and nauseated for the last 3- 4 days. She does state standing makes her lightheadedness somewhat worse. She denies syncope. She began vomiting 2 hours ago. 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 She is a peritoneal dialysis patient and had a complete treatment last night. She denies any difficulty or issues with her dialysis. She is does not make urine. She denies any abdominal pain, fevers or diarrhea. She denies chest pain, cough, shortness of breath, numbness , weakness, headache, vision changes. - Related Data Allergies/Adverse Reactions: oxycodone HCl [From Percocet] Allergy (Verified 09/07/17 04:55) Nausea prochlorperazine edisylate [From Compazine] Allergy (Verified 09/07/17 04:55) Hallucinations prochlorperazine maleate [From Compazine] Allergy (Verified 09/07/17 04:55) Hallucinations propoxyphene napsylate [From Darvocet-N 100] Allergy (Verified 09/07/17 04:55) Hallucinations Past Medical History - Social History Smoking Status: Never Smoker Frequency of alcohol use: None Drug Abuse: None Family History: Reviewed & Not Pertinent, DM, Hypertension Patient has suicidal ideation: No Patient has homicidal ideation: No - Past Medical History Cardiac Medical History: Reports: Hx Congestive Heart Failure, Hx Hypercholesterolemia, Hx Hypertension Pulmonary Medical History: Reports: Hx Asthma, Hx Pneumonia, Hx Sleep Apnea Endocrine Medical History: Reports: Hx Diabetes Mellitus Type 2 Renal/ Medical History: Reports: Hx End Stage Renal Disease - Peritoneal dialysis, Hx Kidney Stones, Hx Peritoneal Dialysis - due @ 2100 GI Medical History: Reports: Hx Gastroesophageal Reflux Disease Psychiatric Medical History: Reports: Hx Depression Past Surgical History: Reports: Hx Abdominal Surgery - peritoneal dialysis fistula, Hx Hysterectomy, Hx Tubal Ligation, Other - Peritoneal dialysis catheter placement - Immunizations Immunizations up to date: No Hx Diphtheria, Pertussis, Tetanus Vaccination: Yes - 2013 Hx Pneumococcal Vaccination: 11/19/11 Review of Systems - Review of Systems Notes: REVIEW OF SYSTEMS: CONSTITUTIONAL : Denies fever, chills, or sweats. Denies recent illness. EENT: Denies eye, ear, throat, or mouth pain or symptoms. Denies nasal or sinus congestion. CARDIOVASCULAR: Denies chest pain. Lightheadedness RESPIRATORY: Denies cough, cold, or chest congestion. Denies shortness of breath, difficulty breathing, or wheezing. GASTROINTESTINAL: Denies abdominal pain. nausea, vomiting. denies diarrhea. Denies constipation. GENITOURINARY: Denies difficulty urinating, painful urination and urinary frequency. MUSCULOSKELETAL: Denies neck or back pain or joint pain. SKIN: Denies rash or skin lesions. HEMATOLOGIC : Denies easy bruising or bleeding. LYMPHATIC: Denies swollen, enlarged glands. NEUROLOGICAL: Denies altered mental status. Denies headache. Denies weakness or paralysis. Denies problems with gait or speech. Denies sensory or motor loss. PSYCHIATRIC: Denies anxiety or depression. ALL OTHER SYSTEMS REVIEWED AND NEGATIVE. Physical Exam - Vital signs Vitals: Temp Pulse BP Pulse Ox 97.6 F 75 184/99 H 95 10/19/17 19:23 10/19/17 19:23 10/19/17 19:23 10/19/17 19:23 - Notes Notes: PHYSICAL EXAMINATION: GENERAL: Well-appearing, well-nourished and in no acute distress. HEAD: Atraumatic, normocephalic. EYES: Pupils equal round and reactive to light, extraocular movements intact, conjunctiva are normal. ENT: nares patent, oropharynx clear without exudates. Moist mucous membranes. NECK: Normal range of motion, supple without lymphadenopathy LUNGS: Breath sounds clear to auscultation bilaterally and equal. No wheezes rales or rhonchi. HEART: Regular rate and rhythm without murmurs ABDOMEN: Soft, nontender, normoactive bowel sounds. No guarding, no rebound. No masses appreciated. EXTREMITIES: Normal range of motion, no pitting edema. No cyanosis. NEUROLOGICAL: No focal neurological deficits. Moves all extremities spontaneously and on command. PSYCH: Normal mood, normal affect. SKIN: Peritoneal dialysis catheter infraumbilical, clean, dry, intact. Warm, Dry, normal turgor, no rashes or lesions noted. Course - Re-evaluation Re-evalutation: 10/19/17 21:59 Vitals reviewed. Patient does have elevated blood pressure with a history of hypertension. She took her morning medication today but has not taken her evening hydralazine. Patient received 4 mg of Zofran prior to arrival by EMS and reported minimal improvement. She was given 4 more milligrams Zofran in the ED as well as Reglan which resolved her nausea. She has not had any further emesis in the ED. She did receive a small IV fluid bolus but because of her history of congestive heart failure and dialysis aggressive hydration is not currently indicated. Lab work shows baseline anemia. She does have an elevated troponin which is also at her baseline. EKG shows no acute ischemia and she is not having chest pain, I do not suspect ACS as a cause of her nausea and vomiting. CT scan of the abdomen shows no acute process. I do not clinically suspect spontaneous bacterial peritonitis and she has a normal WBC count. Patient continued to have elevated blood pressure in the emergency room and was given her evening dose of hydralazine, this did improve her BP. She is symptomatically improved and wants to eat. Patient is orthostatic positive with standing and feels lightheaded with standing. I offered admission to the hospital for her orthostasis however we do not have the capabilities to accommodate her peritoneal dialysis in this facility, she was offered transfer to another facility for further care which she declined. She would like to go home. She will be given Zofran for her nausea and was told to return to the emergency room for any new or worsening symptoms. She will be discharged home in stable condition and is encouraged to follow with her primary care provider in 1-2 days. 10/19/17 22:24 Laboratory 10/19/17 10/19/17 10/19/17 18:20 18:20 18:20 WBC 8.9 RBC 3.40 L Hgb 8.8 L Hct 27.1 L MCV 80 MCH 25.8 L MCHC 32.4 RDW 18.5 H Plt Count 215 Seg Neutrophils % 57.7 Lymphocytes % 25.4 Monocytes % 11.6 Eosinophils % 4.4 Basophils % 0.9 Absolute Neutrophils 5.1 Absolute Lymphocytes 2.3 Absolute Monocytes 1.0 Absolute Eosinophils 0.4 Absolute Basophils 0.1 Sodium 141.0 Potassium 3.8 Chloride 93 L Carbon Dioxide 26 Anion Gap 22 H BUN 86 H Creatinine 20.05 H Est GFR ( Amer) 2 L Est GFR (Non-Af Amer) 2 L Glucose 117 H Calcium 10.5 H Total Bilirubin 0.4 Direct Bilirubin 0.4 Neonat Total Bilirubin Not Reportable Neonat Direct Bilirubin Not Reportable Neonat Indirect Bili Not Reportable AST 19 ALT 29 Alkaline Phosphatase 136 H Troponin I 0.142 Total Protein 7.3 Albumin 3.9 Lipase 283.3 Abdomen/Pelvis CT 10/19/17 20:48 IMPRESSION: Limited study without IV or oral contrast. Cirrhotic liver with moderate amount of abdominopelvic ascites. Percutaneous catheter terminates in the bladder. No bowel obstruction. Multiple calcific densities may represent either punctate nonobstructing stones or vascular calcifications in both kidneys. No hydronephrosis. - Vital Signs Vital signs: Temp Pulse Resp BP Pulse Ox 97.6 F 75 18 177/94 H 98 10/19/17 19:23 10/19/17 19:23 10/19/17 21:31 10/19/17 21:31 10/19/17 21:31 - Laboratory Result Diagrams: 10/19/17 18:20 10/19/17 18:20 Laboratory results interpreted by me: 10/19/17 10/19/17 18:20 18:20 RBC 3.40 L Hgb 8.8 L Hct 27.1 L MCH 25.8 L RDW 18.5 H Chloride 93 L Anion Gap 22 H BUN 86 H Creatinine 20.05 H Est GFR ( Amer) 2 L Est GFR (Non-Af Amer) 2 L Glucose 117 H Calcium 10.5 H Alkaline Phosphatase 136 H Discharge - Discharge Clinical Impression: Nausea and vomiting, Lightheadedness, Orthostatic dizziness Condition: Good Disposition: HOME, SELF-CARE Instructions: Vomiting ([facility]), Orthostatic Hypotension ([facility]) Prescriptions: Ondansetron [Zofran Odt 4 mg Tablet] 1 tab PO Q4H PRN #15 tab.rapdis PRN Reason: For Nausea/Vomiting Referrals: ARTUR MORA MD [ACTIVE STAFF] - Follow up in 3-5 days
--- NOTE | 2017-10-19 21:48 | RADIOLOGY REPORT (SQ) ---
CT ABDOMEN PELVIS WITHOUT IV CONTRAST HISTORY: Diffuse abdominal pain and vomiting. COMPARISON: None. TECHNIQUE: CT scan of the abdomen and pelvis. This exam was performed according to our departmental dose-optimization program, which includes automated exposure control, adjustment of the mA and/or kV according to patient size and/or use of iterative reconstruction technique. FINDINGS: Lung bases are clear. No pleural or pericardial effusions. Cardiomegaly. Gallbladder, spleen, pancreas, and adrenal glands are unremarkable. Liver has a nodular contour suggesting cirrhosis. The kidneys are normal without hydronephrosis. Multiple calcific densities may represent either punctate nonobstructing stones or vascular calcifications in both kidneys. No bowel obstruction. Moderate amount of abdominopelvic ascites. A percutaneous catheter terminates in the pelvis. Normal caliber aorta with atherosclerotic calcifications. Post surgical changes along the lower abdominal anterior wall with scarring. The osseous structures are intact. IMPRESSION: Limited study without IV or oral contrast. Cirrhotic liver with moderate amount of abdominopelvic ascites. Percutaneous catheter terminates in the bladder. No bowel obstruction. Multiple calcific densities may represent either punctate nonobstructing stones or vascular calcifications in both kidneys. No hydronephrosis.
[2017-10-19] MEDS ORDERED: HYDRALAZINE HCL 50 MG TABLET PO ONE (21:58)
[2017-10-19 23:04] VITALS: BP 208/100
== END 2017-10-19 23:36 | disposition home or self-care (01) ==
LOC: ER 18:51
DX: I95.1 Orthostatic hypotension (principal); R11.2 Nausea with vomiting, unspecified; R42 Dizziness and giddiness; I10 Essential (primary) hypertension; J45.909 Unspecified asthma, uncomplicated; E11.9 Type 2 diabetes mellitus without complications
CPT/HCPCS: 99284; 96361; 96374; 96375; 36415; 83690; 85025; 80053; 84484; 74176; A9270; J2765; J2405; J7050

== ENCOUNTER 2017-11-11 10:22 | Inpatient (IN) | payer MEDICARE, MEDICAID ==
--- NOTE | 2017-11-11 10:56 | ER Document Report ---
ED Medical Screen (RME) - General Chief Complaint: Respiratory Distress Stated Complaint: SHORTNESS OF BREATH, CHEST PAIN Time Seen by Provider: 11/11/17 10:52 TRAVEL OUTSIDE OF THE [place] IN LAST 30 DAYS: No - HPI Notes: 11/11/17 10:55 Shortness of breath the last 2 days productive cough - Related Data Allergies/Adverse Reactions: oxycodone HCl [From Percocet] Allergy (Verified 11/11/17 10:27) Nausea prochlorperazine edisylate [From Compazine] Allergy (Verified 11/11/17 10:27) Hallucinations prochlorperazine maleate [From Compazine] Allergy (Verified 11/11/17 10:27) Hallucinations propoxyphene napsylate [From Darvocet-N 100] Allergy (Verified 11/11/17 10:27) Hallucinations Past Medical History - Social History Family history: Reviewed & Not Pertinent - Past Medical History Cardiac Medical History: Reports: Hx Congestive Heart Failure, Hx Hypercholesterolemia, Hx Hypertension Pulmonary Medical History: Reports: Hx Asthma, Hx Pneumonia, Hx Sleep Apnea Endocrine Medical History: Reports: Hx Diabetes Mellitus Type 2 Renal/ Medical History: Reports: Hx End Stage Renal Disease - Peritoneal dialysis, Hx Kidney Stones, Hx Peritoneal Dialysis - due @ 2100 GI Medical History: Reports: Hx Gastroesophageal Reflux Disease Psychiatric Medical History: Reports: Hx Depression Past Surgical History: Reports: Hx Abdominal Surgery - peritoneal dialysis fistula, Hx Hysterectomy, Hx Tubal Ligation, Other - Peritoneal dialysis catheter placement - Immunizations Immunizations up to date: No Hx Diphtheria, Pertussis, Tetanus Vaccination: Yes - 2013 History of Influenza Vaccine for 11/2016 - 04/2017 Season: Yes Influenza Administration Date for 11/2016 - 04/2017 Season: 12/19/16 Review of Systems - Review of Systems Constitutional: No symptoms reported EENT: No symptoms reported Cardiovascular: No symptoms reported Respiratory: Short of breath, Sputum Gastrointestinal: No symptoms reported Genitourinary: No symptoms reported Female Genitourinary: No symptoms reported Musculoskeletal: No symptoms reported Skin: No symptoms reported Hematologic/Lymphatic: No symptoms reported Neurological/Psychological: No symptoms reported -: Yes All other systems reviewed and negative Physical Exam - Vital signs Vitals: Temp Pulse Resp BP Pulse Ox 97.5 F 86 16 138/87 H 95 11/11/17 10:34 11/11/17 10:34 11/11/17 10:34 11/11/17 10:34 11/11/17 10:34 - Respiratory Respiratory status: No respiratory distress Chest status: Nontender Breath sounds: Normal Chest palpation: Normal - Cardiovascular Rhythm: Regular Heart sounds: Normal auscultation Course - Vital Signs Vital signs: Temp Pulse Resp BP Pulse Ox 97.5 F 86 16 138/87 H 95 11/11/17 10:34 11/11/17 10:34 11/11/17 10:34 11/11/17 10:34 11/11/17 10:34 Doctor's Discharge - Discharge Referrals: JULIA GOMEZ PA-C [Primary Care Provider] - Follow up as needed
--- NOTE | 2017-11-11 11:32 | RADIOLOGY REPORT (SQ) ---
EXAM DESCRIPTION: CHEST 2 VIEWS COMPLETED DATE/TIME: 11/11/2017 11:18 am REASON FOR STUDY: chest pain COMPARISON: Chest films 04/09/2016, 03/11/2017, 04/25/2017, 04/29/2017, 07/01/2017 EXAM PARAMETERS: NUMBER OF VIEWS: two views TECHNIQUE: Digital Frontal and Lateral radiographic views of the chest acquired. RADIATION DOSE: NA LIMITATIONS: none FINDINGS: LUNGS AND PLEURA: No opacities, masses or pneumothorax. No pleural effusion. MEDIASTINUM AND HILAR STRUCTURES: No masses or contour abnormalities. HEART AND VASCULAR STRUCTURES: Stable moderate cardiomegaly BONES: No acute findings. HARDWARE: None in the chest. OTHER: No other significant finding. IMPRESSION: Stable moderate cardiomegaly. No acute findings TECHNICAL DOCUMENTATION: JOB ID: [id number] [employer]- All Rights Reserved Reading location - IP/workstation name: [email or web address]
[2017-11-11 12:02] LABS: ABSOLUTE BASOPHILS # (AUTO) 0.1 10^3/uL (0.0-0.2); ABSOLUTE EOSINOPHILS # (AUTO) 0.3 10^3/uL (0.0-0.6); ABSOLUTE LYMPHOCYTES (AUTO) 1.8 10^3/uL (0.5-4.7); ABSOLUTE NEUT (AUTO) 5.7 10^3/uL (1.7-8.2); EOSINOPHILS % (AUTO) 3.3 % (0-6); HEMATOCRIT 26.7 % (36.0-47.0); HEMOGLOBIN 8.6 g/dL (12.0-15.5); LYMPHOCYTES % (AUTO) 20.3 % (13-45); MEAN CORPUSCULAR HEMOGLOBIN 25.5 pg (27.0-33.4); MEAN CORPUSCULAR HGB CONC 32.1 g/dL (32.0-36.0); MEAN CORPUSCULAR VOLUME 79 fl (80-97); MONOCYTES % (AUTO) 10.8 % (3-13); PLATELET COUNT 211 10^3/uL (150-450); RED BLOOD COUNT 3.37 10^6/uL (3.72-5.28); RED CELL DISTRIBUTION WIDTH 17.4 % (11.5-14.0); SEGMENTED NEUTROPHILS % (AUTO) 64.6 % (42-78); TOTAL CELLS COUNTED % (AUTO) 100 %; WHITE BLOOD COUNT 8.8 10^3/uL (4.0-10.5)
[2017-11-11 12:20] LABS: ANION GAP 14 (5-19); BLOOD UREA NITROGEN 70 mg/dL (7-20); CALCIUM 9.2 mg/dL (8.4-10.2); CARBON DIOXIDE 30 mmol/L (22-30); CHLORIDE 95 mmol/L (98-107); GLUCOSE 207 mg/dL (75-110); POTASSIUM 3.7 mmol/L (3.6-5.0); SODIUM 139.1 mmol/L (137-145)
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
[2017-11-11 17:48] LABS: INTERNATIONAL RATION (INR) 1.01; PARTIAL THROMBOPLASTIN TIME 33.9 SEC (23.5-35.8); PROTHROMBIN TIME 13.8 SEC (11.4-15.4)
[2017-11-11] MEDS ORDERED: ACETAMINOPHEN 325 MG TABLET PO PRN (19:04)
[2017-11-11] MEDS ORDERED: CINACALCET HCL PO SCH (19:15)
[2017-11-11] MEDS ORDERED: (PENDING PHARMACY ID) (Hydralazine Hcl [Hydralazine Hcl] 100 MG) PO SCH (19:15)
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
[2017-11-11] MEDS: HYDRALAZINE HCL 50 MG TABLET PO SCH (20:39)
[2017-11-11] MEDS: FOLIC ACID/VITAMIN B COMP W-C CAPSULE PO SCH (20:39)
[2017-11-11] MEDS: ASPIRIN 81 MG TABLET, ENT COATED PO SCH (20:40)
--- NOTE | 2017-11-11 21:56 | EKG REPORT ---
SEVERITY:- ABNORMAL ECG - SINUS RHYTHM PROBABLE LEFT ATRIAL ABNORMALITY NONSPECIFIC INTRAVENTRICULAR CONDUCTION DELAY LEFT VENTRICULAR HYPERTROPHY : Confirmed by: Dorothea Wadsworth MD 11-Nov-2017 21:55:29
[2017-11-11] MEDS ORDERED: (PENDING PHARMACY ID) (Insulin Glargine,Hum.Rec.Anlog [Toujeo Solostar] 30 UNITS) SQ SCH (22:00)
[2017-11-11] MEDS ORDERED: CARVEDILOL 12.5 MG TABLET PO ONE (23:00)
[2017-11-11] MEDS ORDERED: HYDRALAZINE HCL 50 MG TABLET PO ONE (23:00)
[2017-11-11] MEDS: HEPARIN SOD (PORCINE) 5,000 UNIT/ML 1 ML SYRINGE SUBCUT SCH (23:35)
[2017-11-11] MEDS: INSULIN GLARGINE,HUM.REC.ANLOG 300 UNIT/3 ML INSULN.PEN SUBCUT SCH (23:36)
[2017-11-11] MEDS: CALCIUM ACETATE 667 MG CAPSULE PO SCH (23:38)
[2017-11-11] MEDS: CINACALCET HCL 30 MG TABLET PO SCH (23:39)
[2017-11-11] MEDS: PREGABALIN 75 MG CAPSULE PO SCH (23:40)
[2017-11-11] MEDS: CARVEDILOL 12.5 MG TABLET PO SCH (23:45)
[2017-11-12 05:03] LABS: HEMATOCRIT 24.9 % (36.0-47.0); HEMOGLOBIN 8.2 g/dL (12.0-15.5); MEAN CORPUSCULAR HEMOGLOBIN 25.5 pg (27.0-33.4); MEAN CORPUSCULAR HGB CONC 32.7 g/dL (32.0-36.0); MEAN CORPUSCULAR VOLUME 78 fl (80-97); PLATELET COUNT 174 10^3/uL (150-450); RED CELL DISTRIBUTION WIDTH 17.1 % (11.5-14.0); WHITE BLOOD COUNT 9.5 10^3/uL (4.0-10.5)
[2017-11-12 05:22] LABS: ANION GAP 19 (5-19); BLOOD UREA NITROGEN 74 mg/dL (7-20); CALCIUM 9.4 mg/dL (8.4-10.2); CARBON DIOXIDE 25 mmol/L (22-30); CHLORIDE 96 mmol/L (98-107); GLUCOSE 235 mg/dL (75-110); POTASSIUM 3.4 mmol/L (3.6-5.0); SODIUM 139.6 mmol/L (137-145)
[2017-11-12] MEDS: HEPARIN SOD (PORCINE) 5,000 UNIT/ML 1 ML SYRINGE SUBCUT SCH ×3 (06:42→23:21)
[2017-11-12] MEDS: HYDRALAZINE HCL 50 MG TABLET PO SCH ×3 (06:42→23:12)
[2017-11-12] MEDS ORDERED: INSULIN LISPRO 6 UNIT SQ SCH (08:00)
[2017-11-12] MEDS ORDERED: CALCITRIOL 0.25 MCG CAPSULE PO SCH (10:00)
[2017-11-12] MEDS: INSULIN LISPRO 100 UNIT/ML 3 ML VIAL SUBCUT SCH ×3 (11:02→16:37)
[2017-11-12] MEDS: CINACALCET HCL 30 MG TABLET PO SCH (11:03)
[2017-11-12] MEDS: CARVEDILOL 12.5 MG TABLET PO SCH ×2 (11:03→23:21)
[2017-11-12] MEDS: CALCIUM ACETATE 667 MG CAPSULE PO SCH ×3 (11:04→16:38)
[2017-11-12] MEDS: ASPIRIN 81 MG TABLET, ENT COATED PO SCH (11:04)
[2017-11-12] MEDS: PREGABALIN 75 MG CAPSULE PO SCH ×2 (11:41→23:21)
[2017-11-12] MEDS: FOLIC ACID/VITAMIN B COMP W-C CAPSULE PO SCH (11:41)
--- NOTE | 2017-11-12 17:19 | PDOC PROGRESS REPORT ---
Subjective Progress Note for:: 11/12/17 Subjective:: Patient continues to have some dry cough. Dr. Magdaleno has ordered some guaifenesin. She is afebrile otherwise. In terms of her peritoneal dialysis this was started last night at around 11 PM even though I have spoken to the ER nurse at around 8 PM to start it immediately downstairs in the emergency room. So far she has had 5 dialysis exchanges. We are getting adequate ultrafiltration. For the last 2 exchanges to at least have obtained 600 mL each of ultrafiltration which is good. The patient actually reports that she feels better in terms of fluid overload. She does not have any other new complaints otherwise. Reason For Visit: Fluid overload, ESRD Physical Exam Vital Signs: Temp Pulse Resp BP Pulse Ox 97.9 F 87 20 131/64 H 98 11/12/17 12:00 11/12/17 12:13 11/12/17 12:00 11/12/17 12:13 11/12/17 12:00 Intake & Output 11/11/17 11/12/17 11/13/17 06:59 06:59 06:59 Intake Total 7500 5000 Output Total 7200 6200 Balance 300 -1200 Weight 171 kg 170.1 kg Exam: General appearance: PRESENT: no acute distress, cooperative, well-developed, well-nourished Head exam: PRESENT: atraumatic, normocephalic Eye exam: PRESENT: conjunctiva pale, PERRLA. ABSENT: scleral icterus Neck exam: ABSENT: JVD Respiratory exam: PRESENT: Diminished breath sounds. ABSENT: crackles, rales, rhonchi, unlabored, wheezes Cardiovascular exam: PRESENT: Regular rate rhythm -+S1, +S2. ABSENT: diastolic murmur, systolic murmur GI/Abdominal exam: PRESENT: normal bowel sounds, soft. ABSENT: guarding, mass, tenderness Extremities exam: Unchanged grade 1 bilateral lower extremity pitting edema Neurological exam: PRESENT: alert, awake, oriented to person, place and time. Skin exam: PRESENT: dry, warm, Results Laboratory Results: 11/12/17 04:43 11/12/17 04:43 11/12/17 11/12/17 04:43 04:43 WBC 9.5 RBC 3.20 L Hgb 8.2 L Hct 24.9 L MCV 78 L MCH 25.5 L MCHC 32.7 RDW 17.1 H Plt Count 174 Sodium 139.6 Potassium 3.4 L Chloride 96 L Carbon Dioxide 25 Anion Gap 19 BUN 74 H Creatinine 20.92 H Est GFR ( Amer) 2 L Est GFR (Non-Af Amer) 2 L Glucose 235 H Calcium 9.4 Impressions: Chest X-Ray 11/11/17 00:00 IMPRESSION: Stable moderate cardiomegaly. No acute findings Assessment & Plan - Diagnosis (1) Volume overload Qualifiers: Hypervolemia type: other Qualified Code(s): E87.79 - Other fluid overload Is this a current diagnosis for this admission?: Yes Plan: We are getting good ultrafiltration to peritoneal dialysis as prescribed currently. We will continue the same peritoneal dialysis orders. Orders discussed with current nurse. (2) ESRD (end stage renal disease) on dialysis Is this a current diagnosis for this admission?: Yes Plan: Continue the same CAPD orders. Continue to monitor ultrafiltration and adjust accordingly. (3) Anemia in chronic kidney disease (CKD) Qualifiers: Chronic kidney disease stage: on chronic dialysis Qualified Code(s): N18.6 - End stage renal disease; D63.1 - Anemia in chronic kidney disease; D63.1 - Anemia in chronic kidney disease; Z99.2 - Dependence on renal dialysis; Z99.2 - Dependence on renal dialysis; Z99.2 - Dependence on renal dialysis; Z99.2 - Dependence on renal dialysis Is this a current diagnosis for this admission?: Yes Plan: We will check the patient's stool for occult blood. I will give her Procrit 40, 000 units subcutaneously x1 dose as she is due for Procrit dose at this time. (4) Hypertension Qualifiers: Hypertension type: essential hypertension Qualified Code(s): I10 - Essential (primary) hypertension Is this a current diagnosis for this admission?: Yes Plan: Improved and currently controlled with current medications. (5) Cough Is this a current diagnosis for this admission?: Yes Plan: There is no evidence of pneumonia nor acute infection. Possible causes could be part of pulmonary congestion versus viral infection versus acid reflux. In addition to guaifenesin L we will start the patient on Pepcid. (6) Diabetes mellitus type 2 in obese Is this a current diagnosis for this admission?: Yes - Time Time with patient: 15-25 minutes
[2017-11-12] MEDS ORDERED: FAMOTIDINE 20 MG TABLET PO SCH (18:00)
[2017-11-12] MEDS ORDERED: GUAIFENESIN 600 MG TABLET.SA PO SCH ×2 (18:00→22:00)
[2017-11-12] MEDS ORDERED: EPOETIN ALFA INJ 40000 UNIT/1 ML (RENAL) SUBCUT ONE (18:15)
--- NOTE | 2017-11-12 19:10 | PDOC PROGRESS REPORT ---
Subjective Progress Note for:: 11/12/17 Subjective:: She feels better today. She feels less fluid overloaded. Cough persists but may be improving. No chest pain or difficulty breathing. No sputum production. No fever or chills. Reason For Visit: PNEUMONIA Physical Exam Vital Signs: Temp Pulse Resp BP Pulse Ox 97.9 F 87 20 131/64 H 98 11/12/17 12:00 11/12/17 12:13 11/12/17 12:00 11/12/17 12:13 11/12/17 12:00 Intake & Output 11/11/17 11/12/17 11/13/17 06:59 06:59 06:59 Intake Total 7500 5300 Output Total 7200 6300 Balance 300 -1000 Weight 171 kg 170.1 kg General appearance: PRESENT: no acute distress, morbidly obese Head exam: PRESENT: atraumatic, normocephalic Eye exam: ABSENT: conjunctival injection, scleral icterus Mouth exam: PRESENT: moist Respiratory exam: PRESENT: decreased breath sounds, unlabored. ABSENT: rales, rhonchi, wheezes Cardiovascular exam: PRESENT: RRR GI/Abdominal exam: PRESENT: hypoactive bowel sounds, soft. ABSENT: distended, guarding, tenderness Rectal exam: PRESENT: deferred Gentrourinary exam: ABSENT: indwelling catheter Extremities exam: ABSENT: pedal edema Musculoskeletal exam: ABSENT: deformity Neurological exam: PRESENT: alert, awake, oriented to person, oriented to place , oriented to situation, CN II-XII grossly intact Psychiatric exam: PRESENT: appropriate affect. ABSENT: anxious Skin exam: PRESENT: dry, warm, other - PD catheter in place without complication Results Laboratory Results: 11/12/17 04:43 11/12/17 04:43 11/12/17 11/12/17 04:43 04:43 WBC 9.5 RBC 3.20 L Hgb 8.2 L Hct 24.9 L MCV 78 L MCH 25.5 L MCHC 32.7 RDW 17.1 H Plt Count 174 Sodium 139.6 Potassium 3.4 L Chloride 96 L Carbon Dioxide 25 Anion Gap 19 BUN 74 H Creatinine 20.92 H Est GFR ( Amer) 2 L Est GFR (Non-Af Amer) 2 L Glucose 235 H Calcium 9.4 Impressions: Chest X-Ray 11/11/17 00:00 IMPRESSION: Stable moderate cardiomegaly. No acute findings Assessment & Plan - Diagnosis (1) Chronic renal failure, stage 5 Is this a current diagnosis for this admission?: Yes Plan: Patient is on peritoneal dialysis. She is currently being managed by Dr. Moran, occluding ultrafiltration management. Her home renal failure medications have been continued. (2) Diabetes mellitus type 2 in obese Is this a current diagnosis for this admission?: Yes Plan: She is diabetic home medications have been restarted. Continue diabetic diet. Will monitor blood glucose and change insulin orders if indicated.. (3) Diastolic CHF Qualifiers: Heart failure chronicity: acute on chronic Qualified Code(s): I50.33 - Acute on chronic diastolic (congestive) heart failure Is this a current diagnosis for this admission?: Yes Plan: No rales on exam though she does have decreased breath sounds at the bilateral bases. Will continue to monitor her cough as peritoneal dialysis continues. Not seem to be having a flare of her CHF. (4) ESRD (end stage renal disease) on dialysis Is this a current diagnosis for this admission?: Yes Plan: Dr. Moran is consulting, patient is receiving ultrafiltration, she is feeling better today. - Time Time Spent with patient: 25-34 minutes Medications reviewed and adjusted accordingly: Yes - Inpatient Certification Based on my medical assessment, after consideration of the patient's comorbidities, presenting symptoms, or acuity I expect that the services needed warrant INPATIENT care.: Yes I certify that my determination is in accordance with my understanding of Medicare's requirements for reasonable and necessary INPATIENT services [42 CFR 412.3e].: Yes Medical Necessity: Need Close Monitoring Due to Risk of Patient Decompensation, Need For Continuous Telemetry Monitoring, Risk of Complication if Not Cared For in Hospital
[2017-11-12] MEDS: INSULIN GLARGINE,HUM.REC.ANLOG 300 UNIT/3 ML INSULN.PEN SUBCUT SCH (23:21)
[2017-11-13 04:41] LABS: HEMATOCRIT 24.3 % (36.0-47.0); MEAN CORPUSCULAR HEMOGLOBIN 25.6 pg (27.0-33.4); MEAN CORPUSCULAR HGB CONC 32.9 g/dL (32.0-36.0); MEAN CORPUSCULAR VOLUME 78 fl (80-97); PLATELET COUNT 198 10^3/uL (150-450); RED BLOOD COUNT 3.12 10^6/uL (3.72-5.28); RED CELL DISTRIBUTION WIDTH 17.4 % (11.5-14.0); WHITE BLOOD COUNT 9.5 10^3/uL (4.0-10.5)
[2017-11-13 04:59] LABS: ANION GAP 16 (5-19); BLOOD UREA NITROGEN 68 mg/dL (7-20); CALCIUM 8.5 mg/dL (8.4-10.2); CARBON DIOXIDE 26 mmol/L (22-30); CHLORIDE 94 mmol/L (98-107); GLUCOSE 241 mg/dL (75-110); POTASSIUM 3.5 mmol/L (3.6-5.0); SODIUM 136.1 mmol/L (137-145)
[2017-11-13] MEDS: HYDRALAZINE HCL 50 MG TABLET PO SCH (06:23)
[2017-11-13] MEDS: HEPARIN SOD (PORCINE) 5,000 UNIT/ML 1 ML SYRINGE SUBCUT SCH (06:23)
[2017-11-13 08:17] VITALS: BP 120/68
[2017-11-13] MEDS: INSULIN LISPRO 100 UNIT/ML 3 ML VIAL SUBCUT SCH (08:37)
[2017-11-13] MEDS: CALCIUM ACETATE 667 MG CAPSULE PO SCH (08:38)
[2017-11-13] MEDS ORDERED: GLUCAGON,HUMAN RECOMB 1 MG INJ IM PRN (09:02)
[2017-11-13] MEDS ORDERED: INSULIN LISPRO 100 UNIT/ML 3 ML VIAL SUBCUT PRN (09:02)
[2017-11-13] MEDS ORDERED: DEXTROSE 50%-WATER 25 GM/50 ML DISP.SYRIN IV PRN ×2 (09:02)
[2017-11-13] MEDS ORDERED: DEXTROSE 40% GEL 15 GM TUBE PO PRN ×2 (09:02)
[2017-11-13] MEDS ORDERED: INSULIN GLARGINE,HUM.REC.ANLOG 300 UNIT/3 ML INSULN.PEN SUBCUT SCH (09:15)
[2017-11-13] MEDS ORDERED: POTASSIUM CHLORIDE 10 MEQ CAPSULE.ER PO SCH (10:00)
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
== END 2017-11-13 10:20 | disposition home health service (06) | DRG 291 ==
LOC: ER 10:22 → EH 15:48 → 5 21:08
PROVIDERS: ADMIT Emergency Medicine; ATTEND Emergency Medicine
PROC: 3E1M39Z Irrigation of Peritoneal Cavity using Dialysate, Percutaneous Approach (ICD-10-PCS; principal; 2017-11-11)
PROC: 3E1M39Z Irrigation of Peritoneal Cavity using Dialysate, Percutaneous Approach (ICD-10-PCS; 2017-11-12)
DX: I13.2 Hypertensive heart and chronic kidney disease with heart failure and with stage 5 chronic kidney disease, or end stage renal disease (principal); I50.33 Acute on chronic diastolic (congestive) heart failure; N18.6 End stage renal disease; Z68.42 Body mass index [BMI] 45.0-49.9, adult; E11.22 Type 2 diabetes mellitus with diabetic chronic kidney disease; E87.79 Other fluid overload; Z99.2 Dependence on renal dialysis; E78.5 Hyperlipidemia, unspecified; G47.30 Sleep apnea, unspecified; K21.9 Gastro-esophageal reflux disease without esophagitis; F32.9 Major depressive disorder, single episode, unspecified; D63.1 Anemia in chronic kidney disease; E11.21 Type 2 diabetes mellitus with diabetic nephropathy; R05 Cough; E66.9 Obesity, unspecified; Z90.710 Acquired absence of both cervix and uterus; Z98.51 Tubal ligation status; Z82.49 Family history of ischemic heart disease and other diseases of the circulatory system; Z84.1 Family history of disorders of kidney and ureter; Z79.4 Long term (current) use of insulin; Z79.82 Long term (current) use of aspirin; Z79.899 Other long term (current) drug therapy; Z88.5 Allergy status to narcotic agent; Z88.8 Allergy status to other drugs, medicaments and biological substances; Z91.15 Patient's noncompliance with renal dialysis; Z65.5 Exposure to disaster, war and other hostilities
CPT/HCPCS: 36415; 71046; 80048; 82962; 85025; 85027; 85610; 85730; 87040; 90945; 90947; 93005; 93010; 99291; J1644; J1815; Q4081

== ENCOUNTER 2017-12-20 09:51 | Inpatient (IN) | payer MEDICARE, MEDICAID ==
[2017-12-20] MEDS ORDERED: ASPIRIN 81 MG TABLET, CHEWABLE PO ONE (10:06)
--- NOTE | 2017-12-20 10:09 | ER Document Report ---
ED Medical Screen (RME) - General Chief Complaint: Shortness Of Breath Stated Complaint: SHORT OF BREATH Time Seen by Provider: 12/20/17 10:05 Mode of Arrival: Ambulatory Information source: Patient Notes: 52-year-old female presents emergency department with complaints of increased fluid. Patient states that her legs are swollen, she is short of breath. Patient states that this has happened previously and she was diagnosed with a congestive heart failure exacerbation. Patient does peritoneal dialysis. She last did this yesterday night. Patient also been complaining of right flank pain. She denies any abdominal pain. She describes it as an aching sensation. She denies any radiation of the pain. She denies any alleviating or exacerbating factors.No nausea, vomiting, diarrhea, constipation. I have greeted and performed a rapid initial assessment of this patient. A comprehensive ED assessment and evaluation of the patient, analysis of test results and completion of the medical decision making process will be conducted by additional ED providers. PHYSICAL EXAMINATION: GENERAL: Well-appearing, well-nourished and in no acute distress. HEAD: Atraumatic, normocephalic. EYES: Pupils equal round extraocular movements intact, conjunctiva are normal. ENT: Nares patent NECK: Normal range of motion LUNGS: No respiratory distress Musculoskeletal: Normal range of motion. R flank tenderness to palpation. NEUROLOGICAL: Normal speech, normal gait. PSYCH: Normal mood, normal affect. SKIN: Warm, Dry, normal turgor, no rashes or lesions noted. TRAVEL OUTSIDE OF THE [place] IN LAST 30 DAYS: No - Related Data Allergies/Adverse Reactions: oxycodone HCl [From Percocet] Allergy (Verified 12/20/17 09:54) Nausea prochlorperazine edisylate [From Compazine] Allergy (Verified 12/20/17 09:54) Hallucinations prochlorperazine maleate [From Compazine] Allergy (Verified 12/20/17 09:54) Hallucinations propoxyphene napsylate [From Darvocet-N 100] Allergy (Verified 12/20/17 09:54) Hallucinations Past Medical History - Social History Family history: Reviewed & Not Pertinent - Past Medical History Cardiac Medical History: Reports: Hx Congestive Heart Failure, Hx Hypercholesterolemia, Hx Hypertension Pulmonary Medical History: Reports: Hx Asthma, Hx Pneumonia, Hx Sleep Apnea Endocrine Medical History: Reports: Hx Diabetes Mellitus Type 2 Renal/ Medical History: Reports: Hx End Stage Renal Disease - Peritoneal dialysis, Hx Kidney Stones, Hx Peritoneal Dialysis - due @ 2100 GI Medical History: Reports: Hx Gastroesophageal Reflux Disease Psychiatric Medical History: Denies: Hx Depression Past Surgical History: Reports: Hx Abdominal Surgery - peritoneal dialysis fistula, Hx Hysterectomy, Hx Tubal Ligation, Other - Peritoneal dialysis catheter placement - Immunizations Immunizations up to date: No Hx Diphtheria, Pertussis, Tetanus Vaccination: Yes - 2013 History of Influenza Vaccine for 11/2016 - 04/2017 Season: Yes Influenza Administration Date for 11/2016 - 04/2017 Season: 12/19/16 Physical Exam - Vital signs Vitals: Temp Pulse Resp BP Pulse Ox 98.0 F 92 16 187/120 H 93 12/20/17 09:56 12/20/17 09:56 12/20/17 09:56 12/20/17 09:56 12/20/17 09:56 Course - Vital Signs Vital signs: Temp Pulse Resp BP Pulse Ox 98.0 F 92 16 187/120 H 93 12/20/17 09:56 12/20/17 09:56 12/20/17 09:56 12/20/17 09:56 12/20/17 09:56 Doctor's Discharge - Discharge Referrals: JULIA GOMEZ PA-C [Primary Care Provider] - Follow up as needed
[2017-12-20 10:34] LABS: ABSOLUTE BASOPHILS # (AUTO) 0.1 10^3/uL (0.0-0.2); ABSOLUTE EOSINOPHILS # (AUTO) 0.1 10^3/uL (0.0-0.6); ABSOLUTE LYMPHOCYTES (AUTO) 1.8 10^3/uL (0.5-4.7); BASOPHILS % (AUTO) 0.7 % (0-2); HEMATOCRIT 29.5 % (36.0-47.0); HEMOGLOBIN 9.3 g/dL (12.0-15.5); LYMPHOCYTES % (AUTO) 17.8 % (13-45); MEAN CORPUSCULAR HEMOGLOBIN 25.7 pg (27.0-33.4); MEAN CORPUSCULAR HGB CONC 31.6 g/dL (32.0-36.0); MEAN CORPUSCULAR VOLUME 81 fl (80-97); PLATELET COUNT 285 10^3/uL (150-450); RED BLOOD COUNT 3.63 10^6/uL (3.72-5.28); RED CELL DISTRIBUTION WIDTH 19.3 % (11.5-14.0); SEGMENTED NEUTROPHILS % (AUTO) 70.5 % (42-78); TOTAL CELLS COUNTED % (AUTO) 100 %; WHITE BLOOD COUNT 9.9 10^3/uL (4.0-10.5)
[2017-12-20 10:56] LABS: ALANINE AMINOTRANSFERASE 50 U/L (9-52); ALBUMIN 3.9 g/dL (3.5-5.0); ALKALINE PHOSPHATASE 177 U/L (38-126); ASPARTATE AMINO TRANSFERASE 53 U/L (14-36); BILIRUBIN,DIRECT 0.6 mg/dL (0.0-0.4); BILIRUBIN,TOTAL 0.6 mg/dL (0.2-1.3); BLOOD UREA NITROGEN 76 mg/dL (7-20); CALCIUM 10.2 mg/dL (8.4-10.2); CARBON DIOXIDE 26 mmol/L (22-30); CHLORIDE 93 mmol/L (98-107); GLUCOSE 360 mg/dL (75-110); POTASSIUM 3.6 mmol/L (3.6-5.0); TOTAL PROTEIN 7.2 g/dL (6.3-8.2)
[2017-12-20 11:02] LABS: SODIUM 140.8 mmol/L (137-145)
[2017-12-20 11:04] LABS: ANION GAP 22 (5-19)
--- NOTE | 2017-12-20 11:05 | RADIOLOGY REPORT (SQ) ---
EXAM DESCRIPTION: CHEST SINGLE VIEW COMPLETED DATE/TIME: 12/20/2017 10:53 am REASON FOR STUDY: short of breath COMPARISON: 11/11/2017 EXAM PARAMETERS: NUMBER OF VIEWS: One view. TECHNIQUE: Single frontal radiographic view of the chest acquired. RADIATION DOSE: NA LIMITATIONS: None. FINDINGS: LUNGS AND PLEURA: Mild prominence of the interstitial markings in the lungs may be on the basis of edema. No pneumothorax or pleural effusion. MEDIASTINUM AND HILAR STRUCTURES: No masses. Contour normal. HEART AND VASCULAR STRUCTURES: Cardiomegaly, stable finding. Prominence of the pulmonary vasculatur e, suggest vascular congestion. BONES: No acute findings. HARDWARE: None in the chest. OTHER: No other significant finding. IMPRESSION: 1. As on the prior examination dated 11/11/2017, cardiomegaly. Pulmonary vascular conge stion. Mild prominence of the interstitial markings may be on the basis of edema. TECHNICAL DOCUMENTATION: JOB ID: [id number] [employer]- All Rights Reserved Reading location - IP/workstation name: [email or web address]
--- NOTE | 2017-12-20 11:10 | RADIOLOGY REPORT (SQ) ---
EXAM DESCRIPTION: CT ABD/PELVIS NO ORAL OR IV COMPLETED DATE/TIME: 12/20/2017 10:47 am REASON FOR STUDY: R flank pain COMPARISON: 10/19/2017 TECHNIQUE: CT scan of the abdomen and pelvis performed without intravenous or oral contrast. Images reviewed with lung, soft tissue, and bone windows. Reconstructed coronal and sagittal MPR images revi ewed. All images stored on PACS. All CT scanners at this facility use dose modulation, iterative reconstruction, and/or weight based d osing when appropriate to reduce radiation dose to as low as reasonably achievable (ALARA). [facility]: Dose Right [facility]: CareDose [facility]: Dose Right [facility]: Teradose 4D [facility]: Smart webme RADIATION DOSE: CT Rad equipment meets quality standard of care and radiation dose reduction techniq ues were employed. CTDIvol: 27.2 mGy. DLP: 1684 mGy-cm.mGy. LIMITATIONS: None. FINDINGS: LOWER CHEST: No significant findings. No nodules or infiltrates. NON-CONTRASTED LIVER, SPLEEN, ADRENALS: Evaluation limited by lack of IV contrast. No identified sign ificant masses. PANCREAS: No masses. No peripancreatic inflammatory changes. GALLBLADDER: No identified stones by CT criteria. No inflammatory changes to suggest cholecystitis. RIGHT KIDNEY AND URETER: No suspicious masses. Assessment limited by lack of IV contrast. Vascular calcifications and nonobstructing renal calculi unchanged. No hydronephrosis or hydroureter. LEFT KIDNEY AND URETER: No suspicious masses. Assessment limited by lack of IV contrast. Vascular c alcifications and nonobstructing renal calculi unchanged. No hydronephrosis or hydroureter. AORTA AND RETROPERITONEUM: No aneurysm. No retroperitoneal masses or adenopathy. BOWEL AND PERITONEAL CAVITY: Mild ascites. No free air. No bowel obstruction. Peritoneal catheter position not significantly changed. APPENDIX: Not visualized. PELVIS, BLADDER, AND ABDOMINAL WALL:Free fluid. No mass identified. BONES: No acute findings. OTHER: No other significant finding. IMPRESSION: Cirrhosis. Mild ascites. Bilateral renal calculi. No evidence of obstructive uropathy . COMMENT: Quality ID # [id number]: Final reports with documentation of one or more dose reduction techniques (e.g., Automated exposure control, adjustment of the mA and/or kV according to patient size, use of iterative reconstruction technique) TECHNICAL DOCUMENTATION: JOB ID: [id number]- All Rights Reserved Reading location - IP/workstation name: [email or web address]
[2017-12-20] MEDS ORDERED: CLONIDINE HCL 0.2 MG TABLET PO ONE (12:13)
--- NOTE | 2017-12-20 12:41 | EKG REPORT ---
SEVERITY:- ABNORMAL ECG - SINUS RHYTHM FIRST DEGREE AV BLOCK NONSPECIFIC INTRAVENTRICULAR CONDUCTION DELAY LEFT VENTRICULAR HYPERTROPHY : Confirmed by: Dorothea Wadsworth MD 20-Dec-2017 12:39:46
[2017-12-20] MEDS ORDERED: HYDRALAZINE HCL 50 MG TABLET PO ONE (12:54)
[2017-12-20] MEDS ORDERED: CARVEDILOL 12.5 MG TABLET PO ONE (12:55)
[2017-12-20] MEDS ORDERED: MORPHINE SULFATE 10 MG/ML INJ IV ONE (13:06)
[2017-12-20] MEDS ORDERED: ONDANSETRON HCL INJ/PF 4 MG/2 ML SDV IV ONE (13:07)
--- NOTE | 2017-12-20 13:09 | ER Document Report ---
ED Respiratory Problem - General Chief Complaint: Shortness Of Breath Stated Complaint: SHORT OF BREATH Time Seen by Provider: 12/20/17 10:05 Mode of Arrival: Ambulatory Information source: Patient Notes: Patient is a 52-year-old morbidly obese female comes to emergency room complaining of shortness of breath and some pain on the right upper chest and right rib area. Patient states that this started approximately 3 days ago and she is come into the ER because the last time she gets short of breath like this was when she was diagnosed with congestive heart failure. Patient has a very significant past medical history and the point that she has end-stage renal failure and does not urinate. She does home peritoneal dialysis. Patient states that she still feels like she is not fluid overloaded and she last did the peritoneal dialysis last night. When asked how much she took all patients that she did know she did not look. Patient also states that she is not taken her medications today which are include her blood pressure medications. Just because she did not feel well. Patient sees Dr. Lima and Dr Sunshine Bundle PCP. Patient also states that she has not eaten in 2 days because she has not been hungry. TRAVEL OUTSIDE OF THE [place] IN LAST 30 DAYS: No - HPI Patient complains to provider of: Cough, Short of breath Onset: Yesterday Duration: Worse/persistent Initiating Event: Exertion Quality of pain: Pressure, Sharp Severity: Moderate Pain Level: 3 Context: Hx CHF Chest pain/discomfort: Constant, Pain, Right, Worse with deep breaths Cough: Nonproductive Sputum amount: None Associated symptoms: Hurts to breathe Similar symptoms previously: Yes Recently seen / treated by doctor: No - Related Data Allergies/Adverse Reactions: oxycodone HCl [From Percocet] Allergy (Verified 12/20/17 09:54) Nausea prochlorperazine edisylate [From Compazine] Allergy (Verified 12/20/17 09:54) Hallucinations prochlorperazine maleate [From Compazine] Allergy (Verified 12/20/17 09:54) Hallucinations propoxyphene napsylate [From Darvocet-N 100] Allergy (Verified 12/20/17 09:54) Hallucinations Past Medical History - Social History Smoking Status: Never Smoker Cigarette use (# per day): No Chew tobacco use (# tins/day): No Smoking Education Provided: No Frequency of alcohol use: None Drug Abuse: None Family History: Reviewed & Not Pertinent, DM, Hypertension Patient has suicidal ideation: No Patient has homicidal ideation: No - Past Medical History Cardiac Medical History: Reports: Hx Congestive Heart Failure, Hx Hypercholesterolemia, Hx Hypertension Pulmonary Medical History: Reports: Hx Asthma, Hx Pneumonia, Hx Sleep Apnea Endocrine Medical History: Reports: Hx Diabetes Mellitus Type 2 Renal/ Medical History: Reports: Hx End Stage Renal Disease - Peritoneal dialysis, Hx Kidney Stones, Hx Peritoneal Dialysis - due @ 2100 GI Medical History: Reports: Hx Gastroesophageal Reflux Disease Psychiatric Medical History: Denies: Hx Depression Past Surgical History: Reports: Hx Abdominal Surgery - peritoneal dialysis fistula, Hx Hysterectomy, Hx Tubal Ligation, Other - Peritoneal dialysis catheter placement - Immunizations Immunizations up to date: No Hx Diphtheria, Pertussis, Tetanus Vaccination: Yes - 2013 Hx Pneumococcal Vaccination: 11/19/11 Review of Systems - Review of Systems Constitutional: No symptoms reported, Weight gain - Fluid weight gain EENT: No symptoms reported Cardiovascular: No symptoms reported, Orthopnea, Dyspnea Respiratory: See HPI, Cough, Hurts to breathe, Short of breath Gastrointestinal: No symptoms reported, Abdominal pain Genitourinary: No symptoms reported Female Genitourinary: No symptoms reported Musculoskeletal: No symptoms reported Skin: No symptoms reported Hematologic/Lymphatic: No symptoms reported Neurological/Psychological: No symptoms reported -: Yes All other systems reviewed and negative Physical Exam - Vital signs Vitals: Temp Pulse Resp BP Pulse Ox 98.0 F 92 16 187/120 H 93 12/20/17 09:56 12/20/17 09:56 12/20/17 09:56 12/20/17 09:56 12/20/17 09:56 Interpretation: Hypertensive - Notes Notes: PHYSICAL EXAMINATION: GENERAL: Patient is a 52-year-old morbidly obese female she is well-nourished and well-developed. in no acute distress. HEAD: Atraumatic, normocephalic. EYES: Pupils equal round and reactive to light, extraocular movements intact, conjunctiva are normal. ENT: Nares patent, oropharynx clear without exudates. Moist mucous membranes. NECK: Normal range of motion, supple without lymphadenopathy LUNGS: Auscultation patient's lung mathis show she has bilateral breath sounds with breath sounds moderately decreased throughout she has a noted bibasilar Rales. Mostly heard on inspiration. There is no rhonchi noted. There is a slight end expiratory wheezes well. This is throughout all lung mathis. HEART: Regular rate and rhythm without murmurs ABDOMEN: Soft, tender, nondistended abdomen. No guarding, no rebound. No masses appreciated. Patient displays mild diffuse abdominal tenderness to palpation. She has present bowel sounds in all 4 quads. Patient's greatest pain is in the right upper quadrant with palpation there is a negative Lauren sign. Female : deferred Musculoskeletal: Normal range of motion, examination patient's lower extremities does not show any pitting edema. No swelling noted as per the patient's history.. No cyanosis. NEUROLOGICAL: Cranial nerves grossly intact. Normal speech, normal gait. Normal sensory, motor exams PSYCH: Normal mood, normal affect. SKIN: Warm, Dry, normal turgor, no rashes or lesions noted. Course - Re-evaluation Re-evalutation: 12/20/17 18:14 Patient's Caling and explained to her patient's presentation with being fluid overloaded having a BNP of 13,500 and not having any way to take this fluid off the patient. After explaining to her the situation and that patient was apprehensive about doing the rapid exchanges at home she agreed to allow us to admit to the hospitalist and to have the hospitalist consult her. At the point of consult she would come in and see the patient in proceed with orders for rapid exchange while she is here so they could tune her up. Also contacted the hospitalist who also has accepted her into the hospitalist service. He will be down to see patient. Patient currently is comfortable. Her last blood sugar was 273 and I went ahead and ordered 10 units of insulin subcu and we went to let ahead and have her eat. Patient's blood pressure was out of range for her because she had not taken her blood pressure medications. I had originally ordered her clonidine however she refused to take it. She did request to take her own home medications which she wanted us to provide for her. Patient has said to me that she is not eaten in 2 days but still time she was here she wanted something to eat. I guess this is a good sign. As of this dictation patient is doing well in room 18 still she will be admitted to MICU when a bed is available. - Vital Signs Vital signs: Temp Pulse Resp BP Pulse Ox 98.0 F 92 9 L 149/90 H 91 L 12/20/17 09:56 12/20/17 09:56 12/20/17 16:21 12/20/17 16:21 12/20/17 16:21 - Laboratory Result Diagrams: 12/20/17 10:15 12/20/17 10:15 Laboratory results interpreted by me: 12/20/17 12/20/17 12/20/17 10:15 10:15 10:15 RBC 3.63 L Hgb 9.3 L Hct 29.5 L MCH 25.7 L MCHC 31.6 L RDW 19.3 H ABG HCO3 ABG Total CO2 Chloride 93 L Anion Gap 22 H BUN 76 H Creatinine 18.80 H Est GFR ( Amer) 2 L Est GFR (Non-Af Amer) 2 L Glucose 360 H POC Glucose Direct Bilirubin 0.6 H AST 53 H Alkaline Phosphatase 177 H NT-Pro-B Natriuret Pep 25948 H 12/20/17 12/20/17 13:21 14:02 RBC Hgb Hct MCH MCHC RDW ABG HCO3 25.2 H ABG Total CO2 26.5 H Chloride Anion Gap BUN Creatinine Est GFR ( Amer) Est GFR (Non-Af Amer) Glucose POC Glucose 273 H Direct Bilirubin AST Alkaline Phosphatase NT-Pro-B Natriuret Pep Discharge - Discharge Clinical Impression: End stage renal failure on dialysis CHF (congestive heart failure) Qualifiers: Heart failure type: unspecified Heart failure chronicity: acute Qualified Code( s): I50.9 - Heart failure, unspecified Fluid overload Qualifiers: Hypervolemia type: other Qualified Code(s): E87.79 - Other fluid overload Hypertension Qualifiers: Hypertension type: essential hypertension Qualified Code(s): I10 - Essential ( primary) hypertension Condition: Stable Disposition: ADMITTED INPATIENT Admitting Provider: Hospitalist Unit Admitted: [facility]
[2017-12-20 13:34] LABS: ARTERIAL BLOOD BASE EXCESS 0.5 mmol/L; ARTERIAL BLOOD H2CO3 1.23 mmol/L (1.05-1.35); ARTERIAL BLOOD HCO3 25.2 mmol/L (20-24); ARTERIAL BLOOD PH 7.41 (7.35-7.45); ARTERIAL BLOOD PO2 80.5 mmHg (80-100); ARTERIAL BLOOD TOTAL CO2 26.5 mmol/L (21-25)
[2017-12-20 13:38] LABS: ARTERIAL BLOOD FIO2 ROOM AIR
[2017-12-20] MEDS ORDERED: INSULIN REG, HUMAN 100 UNIT/ML 3 ML VIAL (PYX) SUBCUT ONE (14:19)
[2017-12-20] MEDS ORDERED: IPRATROPIUM/ALBUTEROL 0.5-2.5 MG/3 ML AMPUL NEB PRN (15:56)
[2017-12-20] MEDS ORDERED: ACETAMINOPHEN 325 MG TABLET PO PRN (15:56)
[2017-12-20] MEDS ORDERED: ZOLPIDEM TARTRATE 5 MG TABLET PO PRN (15:56)
[2017-12-20] MEDS ORDERED: ONDANSETRON 4 MG TAB.RAPDIS PO PRN (15:56)
--- NOTE | 2017-12-20 16:08 | PDOC H&P ---
History of Present Illness Admission Date/PCP: JULIA GOMEZ PA-C Patient complains of: Shortness of breath History of Present Illness: JASPREET STAFFORD is a 52 year old female past medical history of end-stage renal disease due to uncontrolled hypertension on peritoneal dialysis times 4 years, hypertension, diabetes, CHF secondary to uncontrolled hypertension [2D echo from 04/2017 combined systolic and diastolic failure] and morbid obesity. Presenting to ED complaining of PND, orthopnea, weight gain, shortness of breath associated with nonproductive cough and right-sided abdominal pain. Patient is compliant with her medication however she has been missing on her PD dialysis recently. States she used to get PD dialysis twice a day but recently she had cut down one due to being too busy. Denies any chest pain, fever, chills, nausea, vomiting, diarrhea, constipation or any urinary symptoms. Neurologist is Dr. Moran. Repair Department Supervisor Dr. Tesfaye last appointment 3 months ago. He is disabled living by herself has adult children and she has a mother who is living in [place]. She is full code but wants her mother to make decision if she is not able. Past Medical History Cardiac Medical History: Reports: Congestive Heart Failure, Hyperlipidema, Hypertension Pulmonary Medical History: Reports: Asthma, Pneumonia, Sleep Apnea Endocrine Medical History: Reports: Diabetes Mellitus Type 2 Renal/ Medical History: Reports: End Stage Renal Disease - Peritoneal dialysis GI Medical History: Reports: Gastroesophageal Reflux Disease Psychiatric Medical History: Denies: Depression Hematology: Reports: Anemia Past Surgical History Past Surgical History: Reports: Hysterectomy, Tubal Ligation, Other - Peritoneal dialysis catheter placement Social History Smoking Status: Unknown if Ever Smoked Frequency of Alcohol Use: None Hx Recreational Drug Use: No Drugs: None Hx Prescription Drug Abuse: No Family History Family History: Reviewed & Not Pertinent, DM, Hypertension Parental Family History Reviewed: Yes Children Family History Reviewed: Yes Sibling(s) Family History Reviewed.: Yes Medication/Allergy Home Medications: Carvedilol [Coreg 25 mg Tablet] 25 mg PO Q12 04/29/17 Hydralazine HCl 100 mg PO TID 04/29/17 Insulin Glargine,Hum.rec.anlog [Toujeo Solostar] 50 units SQ QHS 04/29/17 Pregabalin [Lyrica 75 mg Capsule] 75 mg PO Q12 04/29/17 Calcium Acetate [Phoslo 667 mg Capsule] 1,334 mg PO TID 07/01/17 Potassium Chloride [Klor-Con 10 Meq Capsule ER] 20 meq PO DAILY 07/01/17 B Complex W-C No.20/Folic Acid [[place] Caps Softgel] 1 mg PO DAILY 09/07/17 Calcitriol 1 cap PO DAILY 09/07/17 Aspirin [Aspirin EC] 81 mg PO DAILY 11/11/17 Cinacalcet HCl [Sensipar 90 mg Tablet] 1 tab PO DAILY 11/11/17 Insulin Lispro [Humalog Kwikpen U-100] 6 unit SQ MEALS 11/11/17 Famotidine [Pepcid 20 mg Tablet] 20 mg PO Q12 PRN 12/20/17 Allergies/Adverse Reactions: oxycodone HCl [From Percocet] Allergy (Verified 12/20/17 09:54) Nausea prochlorperazine edisylate [From Compazine] Allergy (Verified 12/20/17 09:54) Hallucinations prochlorperazine maleate [From Compazine] Allergy (Verified 12/20/17 09:54) Hallucinations propoxyphene napsylate [From Darvocet-N 100] Allergy (Verified 12/20/17 09:54) Hallucinations Review of Systems Constitutional: PRESENT: weight gain Cardiovascular: PRESENT: as per HPI Respiratory: PRESENT: as per HPI Gastrointestinal: PRESENT: as per HPI Genitourinary: PRESENT: as per HPI Musculoskeletal: PRESENT: as per HPI Neurological: PRESENT: as per HPI Physical Exam Vital Signs: Temp Pulse Resp BP Pulse Ox 98.0 F 92 14 188/113 H 94 12/20/17 09:56 12/20/17 09:56 12/20/17 14:34 12/20/17 14:04 12/20/17 14:34 Intake & Output 12/19/17 12/20/17 12/21/17 06:59 06:59 06:59 Weight 176.6 kg General appearance: PRESENT: no acute distress, morbidly obese Head exam: PRESENT: atraumatic, normocephalic Respiratory exam: PRESENT: clear to auscultation shira, decreased breath sounds. ABSENT: rales, rhonchi, wheezes Cardiovascular exam: PRESENT: RRR. ABSENT: diastolic murmur, rubs, systolic murmur GI/Abdominal exam: PRESENT: distended, normal bowel sounds, soft. ABSENT: guarding, mass, organolmegaly, rebound, tenderness Neurological exam: PRESENT: alert, awake, oriented to person, oriented to place , oriented to time, oriented to situation, CN II-XII grossly intact. ABSENT: motor sensory deficit Results Laboratory Results: 12/20/17 10:15 12/20/17 10:15 12/20/17 12/20/17 12/20/17 10:15 10:15 13:21 WBC 9.9 RBC 3.63 L Hgb 9.3 L Hct 29.5 L MCV 81 MCH 25.7 L MCHC 31.6 L RDW 19.3 H Plt Count 285 Seg Neutrophils % 70.5 Lymphocytes % 17.8 Monocytes % 10.0 Eosinophils % 1.0 Basophils % 0.7 Absolute Neutrophils 7.0 Absolute Lymphocytes 1.8 Absolute Monocytes 1.0 Absolute Eosinophils 0.1 Absolute Basophils 0.1 Carbonic Acid 1.23 HCO3/H2CO3 Ratio 20:1 ABG pH 7.41 ABG pCO2 41.0 ABG pO2 80.5 ABG HCO3 25.2 H ABG O2 Saturation 96.0 ABG Base Excess 0.5 FiO2 ROOM AIR Sodium 140.8 Potassium 3.6 Chloride 93 L Carbon Dioxide 26 Anion Gap 22 H BUN 76 H Creatinine 18.80 H Est GFR ( Amer) 2 L Est GFR (Non-Af Amer) 2 L Glucose 360 H Calcium 10.2 Total Bilirubin 0.6 AST 53 H ALT 50 Alkaline Phosphatase 177 H Total Protein 7.2 Albumin 3.9 12/20/17 12/20/17 10:15 10:15 Troponin I 0.118 NT-Pro-B Natriuret Pep 53970 H Impressions: Chest X-Ray 12/20/17 10:06 IMPRESSION: 1. As on the prior examination dated 11/11/2017, cardiomegaly. Pulmonary vascular congestion. Mild prominence of the interstitial markings may be on the basis of edema. Abdomen/Pelvis CT 12/20/17 10:09 IMPRESSION: Cirrhosis. Mild ascites. Bilateral renal calculi. No evidence of obstructive uropathy. Assessment & Plan - Diagnosis (1) Volume overload Qualifiers: Hypervolemia type: other Qualified Code(s): E87.79 - Other fluid overload Is this a current diagnosis for this admission?: Yes Plan: Due to noncompliance. Volume restriction 1 L/day. Nephrology consult. Patient does not make any urine. (2) Acute on chronic combined systolic and diastolic CHF, NYHA class 2 Is this a current diagnosis for this admission?: Yes Plan: Due to problem #1. Moderately elevated BNP. Volume restriction. Nephrology consult for hemodialysis. Patient does not make any urine. Continue beta- blockers. (3) Anemia in chronic kidney disease (CKD) Qualifiers: Chronic kidney disease stage: on chronic dialysis Qualified Code(s): N18.6 - End stage renal disease; D63.1 - Anemia in chronic kidney disease; D63.1 - Anemia in chronic kidney disease; Z99.2 - Dependence on renal dialysis; Z99.2 - Dependence on renal dialysis; Z99.2 - Dependence on renal dialysis; Z99.2 - Dependence on renal dialysis Is this a current diagnosis for this admission?: Yes Plan: Monitor H&H. Supportive transfusion. Consult nephrology for possible Procrit. (4) ESRD (end stage renal disease) on dialysis Is this a current diagnosis for this admission?: Yes Plan: On peritoneal dialysis. Electrolytes within normal limits. Patient stated she does not like to be placed on hemodialysis. Consult nephrology for possible dialysis. (5) Hypertension Qualifiers: Hypertension type: essential hypertension Qualified Code(s): I10 - Essential (primary) hypertension Is this a current diagnosis for this admission?: Yes Plan: Restart hydrochlorothiazide, carvedilol, hydralazine. Monitor vitals adjust medications as needed. (6) Morbid obesity with BMI of 50.0-59.9, adult Is this a current diagnosis for this admission?: Yes Plan: Diet and lifestyle modification. (7) Diabetes mellitus type 2 in obese Is this a current diagnosis for this admission?: Yes Plan: Long-acting insulin. Accu-Chek. Sliding scale insulin. Diabetic diet. Monitor and adjust insulin dosage as needed. (8) Abdominal pain Qualifiers: Abdominal location: right lower quadrant Qualified Code(s): R10.31 - Right lower quadrant pain Is this a current diagnosis for this admission?: Yes Plan: Abdominal CT negative for any acute abnormalities except for cirrhosis mild ascites and bilateral renal calculi with no evidence of obstructive uropathy. Traumatic management. Sickle examination she has a benign abdominal examination and PD catheter site looks clean and uninfected.
[2017-12-20] MEDS ORDERED: INSULIN REG, HUMAN 100 UNIT/ML 3 ML VIAL (PYX) SUBCUT PRN (16:13)
[2017-12-20] MEDS ORDERED: GLUCAGON,HUMAN RECOMB 1 MG INJ IM PRN ×2 (16:13→16:15)
[2017-12-20] MEDS ORDERED: DEXTROSE 50%-WATER 25 GM/50 ML DISP.SYRIN IV PRN ×4 (16:13→16:15)
[2017-12-20] MEDS ORDERED: DEXTROSE 40% GEL 15 GM TUBE PO PRN ×4 (16:13→16:15)
[2017-12-20] MEDS ORDERED: HYDROCHLOROTHIAZIDE 25 MG TABLET PO SCH (16:15)
--- NOTE | 2017-12-20 17:07 | PDOC CONSULTATION ---
Consultation Consult Date: 12/20/17 Attending physician:: TREVER JACK Consult reason:: I was asked to see the patient because of volume overload and shortness of breath in a patient with ESRD on peritoneal dialysis. History of Present Illness Admission Date/PCP: JULIA GOMEZ PA-C History of Present Illness: JASPREET STAFFORD is a 52 year old female known to me with history of ESRD on peritoneal dialysis doing combination of [place] and manual exchanges at home, diabetic nephropathy and hypertensive nephrosclerosis, diabetes mellitus type 2 and hypertension who presented to the emergency room today because of worsening shortness of breath and right flank pain. Patient confirms that he is having progressively worsening shortness of breath, feeling that she is retaining fluid again which happened in the past, PND, orthopnea, weight gain and nonproductive cough. She says she ran out of for high concentration PD fluid of 4.25% about 2 weeks ago and is only been using the 2.5% solution. She admits forgetting to do the second manual exchanges during the day. She also complains of right flank pain but denies any fever, chest pains nor cloudy peritoneal dialysate effluent. Her blood pressure when she came into the emergency room is so elevated as high as 216/134 but she was unable to take her medications this morning yet. When I saw her this afternoon her blood pressure has already come down to 149/90 after getting her regular home medications. Past Medical History Cardiac Medical History: Reports: CHF-Diastolic, Hyperlipidemia, Hypertension- primary Pulmonary Medical History: Reports: Asthma, Pneumonia, Sleep Apnea Endocrine Medical History: Reports: Diabetes Mellitus Type 2 Complications of Diabetes: Reports: Nephropathy Renal/ Medical History: Reports: End Stage Renal Disease - Peritoneal dialysis , Hyperphosphatemia, Secondary Hyperparathyroidism GI Medical History: Reports: Gastroesophageal Reflux Disease Hematology Medical History: Reports Anemia of Chronic Kidney Disease Past Surgical History Past Surgical History: Reports: Hysterectomy, Tubal Ligation, Other - Peritoneal dialysis catheter placement Social History Information Source: Patient Lives with: Family Smoking Status: Unknown if Ever Smoked Frequency of Alcohol Use: None Hx Recreational Drug Use: No Drugs: None Hx Prescription Drug Abuse: No Family History Family History: Chronic Kidney Disease - Father on dialysis, DM - Father, Hypertension - Father Parental Family History Reviewed: Yes Children Family History Reviewed: NA Sibling(s) Family History Reviewed.: Yes Medication/Allergy Home Medications: Carvedilol [Coreg 25 mg Tablet] 25 mg PO Q12 04/29/17 Hydralazine HCl 100 mg PO Q8 04/29/17 Insulin Glargine,Hum.rec.anlog [[place] Solostar] 22 units SQ QHS 04/29/17 Pregabalin [Lyrica 75 mg Capsule] 75 mg PO Q12 04/29/17 Calcium Acetate [Phoslo 667 mg Capsule] 1,334 mg PO TID 07/01/17 Potassium Chloride [Klor-Con 10 Meq Capsule ER] 20 meq PO DAILY 07/01/17 B Complex W-C No.20/Folic Acid [[place] Caps Softgel] 1 mg PO DAILY 09/07/17 Aspirin [Aspirin EC] 81 mg PO DAILY 11/11/17 Insulin Lispro [Humalog Kwikpen U-100] unit SQ MEALS 11/11/17 Albuterol Sulfate [Proair Hfa Inhalation Aerosol 8.5 gm Mdi] puff IH PRN Ammonium Lactate [Lac-Hydrin 12% Lotion 225Gm/Bottle] 1 applic TP 12/20/17 Budesonide [Pulmicort 90 mcg Flexhaler] inh IH 12/20/17 Fluticasone Propionate [Flonase Nasal [place] 50 Mcg/[place] 16 gm] spray NASL 12/20 Allergies/Adverse Reactions: oxycodone HCl [From Percocet] Allergy (Verified 12/20/17 09:54) Nausea prochlorperazine edisylate [From Compazine] Allergy (Verified 12/20/17 09:54) Hallucinations prochlorperazine maleate [From Compazine] Allergy (Verified 12/20/17 09:54) Hallucinations propoxyphene napsylate [From Darvocet-N 100] Allergy (Verified 12/20/17 09:54) Hallucinations Review of Systems All systems: reviewed and no additional remarkable complaints except as stated Review of Systems: Constitutional: ABSENT: chills, fatigue, fever(s), headache(s), weight gain, weight loss Eyes: ABSENT: visual disturbances Ears: ABSENT: hearing changes Cardiovascular: ABSENT: chest pain, palpitations; admits shortness of breath, edema Respiratory: ABSENT: Hemoptysis; admits nonproductive cough Gastrointestinal: ABSENT: abdominal pain, constipation, diarrhea, hematemesis, hematochezia, nausea, vomiting Genitourinary: ABSENT: dysuria, hematuria; admits right flank pain Musculoskeletal: ABSENT: joint swelling Integumentary: ABSENT: rash, wounds Neurological: ABSENT: abnormal gait, abnormal speech, confusion, dizziness, focal weakness, numbness, syncope Psychiatric: ABSENT: anxiety, depression Endocrine: ABSENT: cold intolerance, heat intolerance, polydipsia, polyuria Hematologic/Lymphatic: ABSENT: easy bleeding, easy bruising, lymphadenopathy Physical Exam Vital Signs: Temp Pulse Resp BP Pulse Ox 98.0 F 92 9 L 149/90 H 91 L 12/20/17 09:56 12/20/17 09:56 12/20/17 16:21 12/20/17 16:21 12/20/17 16:21 Intake & Output 12/19/17 12/20/17 12/21/17 06:59 06:59 06:59 Weight 176.6 kg Exam: General appearance: No acute distress, cooperative, well-developed, well- nourished Head exam: PRESENT: atraumatic, normocephalic, her face appears full and puffy Eye exam: PRESENT: Conjunctiva [place], EOMI, PERRLA. ABSENT: conjunctival injection, scleral icterus Mouth exam: PRESENT: moist, neck supple, tongue midline Neck exam: PRESENT: full ROM. ABSENT: carotid bruit, JVD, lymphadenopathy, thyromegaly Respiratory exam: PRESENT: Diminished to auscultation bilaterally. Minimal basal crackles ABSENT: Rhonchi, stridor, wheezes Cardiovascular exam: PRESENT: RRR, +S1, +S2. ABSENT: systolic murmur Pulses: PRESENT: normal radial pulses, normal dorsalis pedis pulses GI/Abdominal exam: PRESENT: normal bowel sounds, soft. ABSENT: guarding, mass, tenderness Rectal exam: Deferred Extremities exam: PRESENT: full ROM. Bilateral trace bilateral pitting edema ABSENT: calf tenderness Musculoskeletal: PRESENT: full ROM. ABSENT: deformity Neurological exam: PRESENT: alert, Awake, Oriented to person, Oriented to place , Oriented to time, reflexes normal, CN II-XII grossly intact. ABSENT: motor sensory deficit Psychiatric exam: PRESENT: appropriate affect, normal mood. ABSENT: homicidal ideation, suicidal ideation Skin exam: PRESENT: intact, dry, warm. ABSENT: rash Results Laboratory Results: 12/20/17 10:15 12/20/17 10:15 12/20/17 12/20/17 12/20/17 10:15 10:15 13:21 WBC 9.9 RBC 3.63 L Hgb 9.3 L Hct 29.5 L MCV 81 MCH 25.7 L MCHC 31.6 L RDW 19.3 H Plt Count 285 Seg Neutrophils % 70.5 Lymphocytes % 17.8 Monocytes % 10.0 Eosinophils % 1.0 Basophils % 0.7 Absolute Neutrophils 7.0 Absolute Lymphocytes 1.8 Absolute Monocytes 1.0 Absolute Eosinophils 0.1 Absolute Basophils 0.1 Carbonic Acid 1.23 HCO3/H2CO3 Ratio 20:1 ABG pH 7.41 ABG pCO2 41.0 ABG pO2 80.5 ABG HCO3 25.2 H ABG O2 Saturation 96.0 ABG Base Excess 0.5 FiO2 ROOM AIR Sodium 140.8 Potassium 3.6 Chloride 93 L Carbon Dioxide 26 Anion Gap 22 H BUN 76 H Creatinine 18.80 H Est GFR ( Amer) 2 L Est GFR (Non-Af Amer) 2 L Glucose 360 H Calcium 10.2 Total Bilirubin 0.6 AST 53 H ALT 50 Alkaline Phosphatase 177 H Total Protein 7.2 Albumin 3.9 12/20/17 12/20/17 10:15 10:15 Troponin I 0.118 NT-Pro-B Natriuret Pep 86459 H Impressions: Chest X-Ray 12/20/17 10:06 IMPRESSION: 1. As on the prior examination dated 11/11/2017, cardiomegaly. Pulmonary vascular congestion. Mild prominence of the interstitial markings may be on the basis of edema. Abdomen/Pelvis CT 12/20/17 10:09 IMPRESSION: Cirrhosis. Mild ascites. Bilateral renal calculi. No evidence of obstructive uropathy. Assessment & Plan - Diagnosis (1) Volume overload Qualifiers: Hypervolemia type: other Qualified Code(s): E87.79 - Other fluid overload Is this a current diagnosis for this admission?: Yes Plan: This could be a result of some Missed exchanges of peritoneal dialysis. We will do CAPD with rapid exchanges during this admission. We will use 3 L of fill volume using 4.25% solution for the first 3 exchanges and then alternate 4.25 and 2.5% solution thereafter. Monitor ultrafiltration and adjust treatment accordingly. Discussed orders with treating nurse in the emergency room and requested that she get started on peritoneal dialysis very soon. (2) Pulmonary vascular congestion Is this a current diagnosis for this admission?: Yes (3) CHF (congestive heart failure) Qualifiers: Heart failure type: diastolic Is this a current diagnosis for this admission?: Yes (4) ESRD (end stage renal disease) on dialysis Is this a current diagnosis for this admission?: Yes Plan: Continue CAPD as above. We will also send PD effluent fluid for cell count, Gram stain and culture just to make sure her right flank pain is not due to any peritonitis. However likelihood is low. (5) Hypertension Qualifiers: Hypertension type: essential hypertension Qualified Code(s): I10 - Essential (primary) hypertension Is this a current diagnosis for this admission?: Yes Plan: Continue home medications. (6) Anemia in chronic kidney disease (CKD) Qualifiers: Chronic kidney disease stage: on chronic dialysis Qualified Code(s): N18.6 - End stage renal disease; D63.1 - Anemia in chronic kidney disease; D63.1 - Anemia in chronic kidney disease; Z99.2 - Dependence on renal dialysis; Z99.2 - Dependence on renal dialysis; Z99.2 - Dependence on renal dialysis; Z99.2 - Dependence on renal dialysis Is this a current diagnosis for this admission?: Yes Plan: We will give Procrit once the blood pressure is better controlled. (7) Diabetes mellitus type 2 in obese Is this a current diagnosis for this admission?: Yes (8) Dry cough Is this a current diagnosis for this admission?: Yes (9) Diabetic nephropathy Is this a current diagnosis for this admission?: Yes - Notes Notes: Thank you very much for this consultation. We will follow the patient along with you. - Time Time Spent: 50 to 70 Minutes
[2017-12-20] MEDS ORDERED: (PENDING PHARMACY ID) (Hydralazine Hcl [Hydralazine Hcl] 100 MG) PO SCH (18:00)
[2017-12-20] MEDS: ASPIRIN 81 MG TABLET, ENT COATED PO SCH (18:58)
[2017-12-20] MEDS: DOCUSATE SODIUM 100 MG CAPSULE PO SCH (19:00)
[2017-12-20] MEDS: CALCIUM ACETATE 667 MG CAPSULE PO SCH (22:56)
[2017-12-20] MEDS: HEPARIN SOD (PORCINE) 5,000 UNIT/ML 1 ML SYRINGE SUBCUT SCH (22:57)
[2017-12-20] MEDS: CARVEDILOL 12.5 MG TABLET PO SCH (22:57)
[2017-12-20] MEDS: HYDRALAZINE HCL 50 MG TABLET PO SCH (22:58)
[2017-12-20] MEDS: INSULIN GLARGINE,HUM.REC.ANLOG 300 UNIT/3 ML INSULN.PEN SUBCUT SCH (22:59)
[2017-12-20] MEDS: INSULIN LISPRO 100 UNIT/ML 3 ML VIAL SUBCUT PRN (22:59)
[2017-12-20] MEDS: PREGABALIN 75 MG CAPSULE PO SCH (22:59)
[2017-12-21 00:26] LABS: FLUID TYPE PERITONEAL
[2017-12-21 00:27] LABS: FLUID APPEARANCE CLEAR; FLUID COLOR LIGHT YELLOW; FLUID VISCOSITY LIQUID
[2017-12-21 00:30] LABS: FLUID SOURCE ABDOMEN
[2017-12-21] MEDS ORDERED: MORPHINE SULFATE 10 MG/ML INJ IV ONE ×2 (04:30→13:00)
[2017-12-21] MEDS: HYDRALAZINE HCL 50 MG TABLET PO SCH ×3 (05:57→21:34)
[2017-12-21] MEDS: HEPARIN SOD (PORCINE) 5,000 UNIT/ML 1 ML SYRINGE SUBCUT SCH ×3 (05:57→21:33)
[2017-12-21 06:07] LABS: ABSOLUTE BASOPHILS # (AUTO) 0.1 10^3/uL (0.0-0.2); ABSOLUTE EOSINOPHILS # (AUTO) 0.3 10^3/uL (0.0-0.6); ABSOLUTE LYMPHOCYTES (AUTO) 1.6 10^3/uL (0.5-4.7); ABSOLUTE MONOCYTES (AUTO) 1.2 10^3/uL (0.1-1.4); ABSOLUTE NEUT (AUTO) 9.5 10^3/uL (1.7-8.2); BASOPHILS % (AUTO) 0.7 % (0-2); EOSINOPHILS % (AUTO) 2.7 % (0-6); HEMATOCRIT 27.9 % (36.0-47.0); HEMOGLOBIN 8.7 g/dL (12.0-15.5); LYMPHOCYTES % (AUTO) 12.8 % (13-45); MEAN CORPUSCULAR HEMOGLOBIN 25.2 pg (27.0-33.4); MEAN CORPUSCULAR HGB CONC 31.1 g/dL (32.0-36.0); MEAN CORPUSCULAR VOLUME 81 fl (80-97); MONOCYTES % (AUTO) 9.7 % (3-13); PLATELET COUNT 255 10^3/uL (150-450); RED BLOOD COUNT 3.45 10^6/uL (3.72-5.28); RED CELL DISTRIBUTION WIDTH 19.6 % (11.5-14.0); SEGMENTED NEUTROPHILS % (AUTO) 74.1 % (42-78); TOTAL CELLS COUNTED % (AUTO) 100 %; WHITE BLOOD COUNT 12.8 10^3/uL (4.0-10.5)
[2017-12-21 06:32] LABS: ALBUMIN 3.6 g/dL (3.5-5.0); BLOOD UREA NITROGEN 82 mg/dL (7-20); CALCIUM 10.2 mg/dL (8.4-10.2); GLUCOSE 239 mg/dL (75-110); POTASSIUM 3.9 mmol/L (3.6-5.0); TOTAL PROTEIN 6.7 g/dL (6.3-8.2)
[2017-12-21 06:33] LABS: ALANINE AMINOTRANSFERASE 46 U/L (9-52); ALKALINE PHOSPHATASE 139 U/L (38-126); ASPARTATE AMINO TRANSFERASE 25 U/L (14-36); BILIRUBIN,DIRECT 0.5 mg/dL (0.0-0.4); BILIRUBIN,TOTAL 0.5 mg/dL (0.2-1.3)
[2017-12-21 06:39] LABS: CARBON DIOXIDE 25 mmol/L (22-30); CHLORIDE 95 mmol/L (98-107); SODIUM 141.2 mmol/L (137-145)
[2017-12-21 06:48] LABS: ANION GAP 21 (5-19)
[2017-12-21] MEDS: INSULIN LISPRO 100 UNIT/ML 3 ML VIAL SUBCUT PRN ×4 (07:48→21:31)
[2017-12-21] MEDS ORDERED: CINACALCET HCL PO SCH (10:00)
[2017-12-21] MEDS: CALCITRIOL 0.25 MCG CAPSULE PO SCH (10:32)
[2017-12-21] MEDS: ASPIRIN 81 MG TABLET, ENT COATED PO SCH (10:32)
[2017-12-21] MEDS: CALCIUM ACETATE 667 MG CAPSULE PO SCH ×3 (10:33→18:09)
[2017-12-21] MEDS: CARVEDILOL 12.5 MG TABLET PO SCH ×2 (10:33→21:34)
[2017-12-21] MEDS: DOCUSATE SODIUM 100 MG CAPSULE PO SCH ×2 (10:33→18:09)
[2017-12-21] MEDS: PREGABALIN 75 MG CAPSULE PO SCH ×2 (10:33→21:33)
[2017-12-21] MEDS: POTASSIUM CHLORIDE 10 MEQ CAPSULE.ER PO SCH (10:34)
[2017-12-21] MEDS ORDERED: MORPHINE SULFATE 10 MG/ML INJ IV PRN (14:57)
[2017-12-21] MEDS ORDERED: ALBUTEROL SULFATE 0.083% NEB 2.5 MG/3 ML AMPUL NEB PRN (15:11)
--- NOTE | 2017-12-21 15:12 | PDOC PROGRESS REPORT ---
Subjective Progress Note for:: 12/21/17 Subjective:: The patient is still having right flank pain radiating towards the groin. She has been tolerating her peritoneal dialysis. She does report a cough. She states that she has a history of asthma. At home she typically has inhalers both scheduled and as needed for treatment. Reason For Visit: VOLUME OVERLOAD Physical Exam Vital Signs: Temp Pulse Resp BP Pulse Ox 98.0 F 75 18 157/87 H 93 12/21/17 12:07 12/21/17 14:00 12/21/17 12:07 12/21/17 12:49 12/21/17 12:07 Intake & Output 12/20/17 12/21/17 12/22/17 06:59 06:59 05:59 Intake Total 5750 6118 Output Total 6100 7600 Balance -350 -1482 Weight 179.6 kg 179.3 kg General appearance: PRESENT: cooperative, mild distress, morbidly obese, well- developed Head exam: PRESENT: atraumatic, normocephalic Eye exam: PRESENT: conjunctiva pale, EOMI. ABSENT: scleral icterus Ear exam: PRESENT: normal external ear exam Mouth exam: PRESENT: moist, tongue midline Teeth exam: PRESENT: poor dentation Neck exam: PRESENT: other - Very large neck. Difficult to assess.. ABSENT: carotid bruit, lymphadenopathy Respiratory exam: PRESENT: clear to auscultation shira - With distant breath sounds likely due to body habitus., symmetrical, unlabored. ABSENT: rales, rhonchi, wheezes Cardiovascular exam: PRESENT: RRR, +S1, +S2 GI/Abdominal exam: PRESENT: normal bowel sounds, soft, tenderness - The focus of her tenderness is the right lateral aspect to right lower quadrant. There are no associated skin vesicles. There is no rebound.. ABSENT: distended, guarding Extremities exam: PRESENT: pedal edema Neurological exam: PRESENT: alert, awake, oriented to person, oriented to place , oriented to time, oriented to situation, CN II-XII grossly intact Psychiatric exam: PRESENT: appropriate affect, normal mood. ABSENT: agitated, anxious Skin exam: PRESENT: dry, normal color, warm. ABSENT: vesicles Results Laboratory Results: 12/21/17 05:10 12/21/17 05:10 12/20/17 12/21/17 12/21/17 23:30 05:10 05:10 WBC 12.8 H RBC 3.45 L Hgb 8.7 L Hct 27.9 L MCV 81 MCH 25.2 L MCHC 31.1 L RDW 19.6 H Plt Count 255 Seg Neutrophils % 74.1 Lymphocytes % 12.8 L Monocytes % 9.7 Eosinophils % 2.7 Basophils % 0.7 Absolute Neutrophils 9.5 H Absolute Lymphocytes 1.6 Absolute Monocytes 1.2 Absolute Eosinophils 0.3 Absolute Basophils 0.1 Sodium 141.2 Potassium 3.9 Chloride 95 L Carbon Dioxide 25 Anion Gap 21 H BUN 82 H Creatinine 19.22 H Est GFR ( Amer) 2 L Est GFR (Non-Af Amer) 2 L Glucose 239 H Calcium 10.2 Magnesium 2.0 Total Bilirubin 0.5 AST 25 ALT 46 Alkaline Phosphatase 139 H Total Protein 6.7 Albumin 3.6 Fluid Type PERITONEAL Fluid Source ABDOMEN Fluid Color LIGHT YELLOW Fluid Appearance CLEAR Fluid Viscosity LIQUID Fluid WBC 3 Fluid RBC 1 Impressions: Chest X-Ray 12/20/17 10:06 IMPRESSION: 1. As on the prior examination dated 11/11/2017, cardiomegaly. Pulmonary vascular congestion. Mild prominence of the interstitial markings may be on the basis of edema. Abdomen/Pelvis CT 12/20/17 10:09 IMPRESSION: Cirrhosis. Mild ascites. Bilateral renal calculi. No evidence of obstructive uropathy. Assessment & Plan - Diagnosis (1) ESRD (end stage renal disease) on dialysis Is this a current diagnosis for this admission?: Yes Plan: The patient is receiving peritoneal dialysis. She was volume overloaded. She reports that her breathing is better. She is anuric and dialysis is removing large volumes Continue peritoneal dialysis. Please also see nephrology note. (2) Volume overload Qualifiers: Hypervolemia type: other Qualified Code(s): E87.79 - Other fluid overload Is this a current diagnosis for this admission?: Yes Plan: Continuing peritoneal dialysis as noted above. The patient does not produce urine and there is no place for diuretic therapy. (3) Abdominal pain Qualifiers: Abdominal location: right lower quadrant Qualified Code(s): R10.31 - Right lower quadrant pain Is this a current diagnosis for this admission?: Yes Plan: The patient still has right lower quadrant pain extending towards the groin. She does not produce urine so it would be difficult to assess for urinary tract infection. A CT scan without contrast did reveal bilateral nonobstructing nephrolithiasis. It was believed that there was no hydronephrosis but the study is not as sensitive without IV contrast. I will order a renal ultrasound to further assess. Results may be limited due to her body habitus. Her white blood cell count is slightly elevated today. I will recheck it tomorrow and if it continues to increase then consideration of a urinary tract infection should be given. Her peritoneal dialysis was cultured and is no growth so far. (4) Asthma Qualifiers: Asthma severity: mild Asthma persistence: intermittent Asthma complication type: uncomplicated Qualified Code(s): J45.20 - Mild intermittent asthma, uncomplicated Is this a current diagnosis for this admission?: Yes Plan: The patient does not have any inhaler therapy. I will order scheduled inhalers and as needed nebulizer treatments. This should resolve her cough. - Time Time Spent with patient: 25-34 minutes Medications reviewed and adjusted accordingly: Yes
[2017-12-21] MEDS: SALMETEROL XINAFOATE DISKUS 50 MCG/1 DOSE 28 DOSE IH SCH (21:33)
[2017-12-21] MEDS: INSULIN GLARGINE,HUM.REC.ANLOG 300 UNIT/3 ML INSULN.PEN SUBCUT SCH (21:34)
[2017-12-22] MEDS: HYDRALAZINE HCL 50 MG TABLET PO SCH ×3 (05:26→22:46)
[2017-12-22] MEDS: HEPARIN SOD (PORCINE) 5,000 UNIT/ML 1 ML SYRINGE SUBCUT SCH ×3 (05:26→22:47)
[2017-12-22] MEDS: INSULIN LISPRO 100 UNIT/ML 3 ML VIAL SUBCUT PRN ×4 (07:59→22:46)
--- NOTE | 2017-12-22 09:39 | PDOC PROGRESS REPORT ---
Subjective Progress Note for:: 12/22/17 Subjective:: JASPREET STAFFORD is a 52 year old female past medical history of end-stage renal disease due to uncontrolled hypertension on peritoneal dialysis times 4 years, hypertension, diabetes, CHF secondary to uncontrolled hypertension [2D echo from 04/2017 combined systolic and diastolic failure] and morbid obesity. Presenting to ED complaining of PND, orthopnea, weight gain, shortness of breath associated with nonproductive cough and right-sided abdominal pain. Patient is compliant with her medication however she has been missing on her PD dialysis recently. States she used to get PD dialysis twice a day but recently she had cut down one due to being too busy. Denies any chest pain, fever, chills, nausea, vomiting, diarrhea, constipation or any urinary symptoms. Neurologist is Dr. Moran. Insurance Claim Auditor Dr. Tesfaye last appointment 3 months ago. She is disabled living by herself has adult children and she has a mother who is living in [place]. She is full code but wants her mother to make decision if she is not able. 01/01/2018. No acute events overnight. Patient still complaining of persistent right-sided abdominal pain radiating to the groin. Shortness of breath has improved. Patient is p.o. tolerant. She has been receiving her PD dialysis since admission. Nephrology on board. Denies any fever, chills, shortness of breath, chest pain, nausea, vomiting, diarrhea, constipation or any urinary symptoms. Reason For Visit: VOLUME OVERLOAD Physical Exam Vital Signs: Temp Pulse Resp BP Pulse Ox 97.5 F 79 22 H 132/56 H 92 12/22/17 08:14 12/22/17 08:14 12/22/17 08:14 12/22/17 08:14 12/22/17 08:14 Intake & Output 12/21/17 12/22/17 12/23/17 07:59 06:59 06:59 Intake Total 3000 Output Total 4400 Balance -1400 Weight 175.1 kg General appearance: PRESENT: morbidly obese Respiratory exam: PRESENT: clear to auscultation shira. ABSENT: rales, rhonchi, wheezes Cardiovascular exam: PRESENT: RRR. ABSENT: diastolic murmur, rubs, systolic murmur GI/Abdominal exam: PRESENT: normal bowel sounds, soft. ABSENT: distended, guarding, mass, organolmegaly, rebound, tenderness Skin exam: PRESENT: dry, intact, warm. ABSENT: cyanosis, rash Results Laboratory Results: 12/21/17 05:10 12/21/17 05:10 Impressions: Chest X-Ray 12/20/17 10:06 IMPRESSION: 1. As on the prior examination dated 11/11/2017, cardiomegaly. Pulmonary vascular congestion. Mild prominence of the interstitial markings may be on the basis of edema. Abdomen/Pelvis CT 12/20/17 10:09 IMPRESSION: Cirrhosis. Mild ascites. Bilateral renal calculi. No evidence of obstructive uropathy. Assessment & Plan - Diagnosis (1) Volume overload Qualifiers: Hypervolemia type: other Qualified Code(s): E87.79 - Other fluid overload Is this a current diagnosis for this admission?: Yes Plan: Due to noncompliance. -1400 fluid balance. Weight -3 kg since admission. Continue volume restriction 1 L/day and PD dialysis. Nephrology on board. Patient does not make any urine. (2) Acute on chronic combined systolic and diastolic CHF, NYHA class 2 Is this a current diagnosis for this admission?: Yes Plan: Due to problem #1. Moderately elevated BNP. Volume restriction. Nephrology consult for hemodialysis. Patient does not make any urine. Continue beta- blockers. (3) Anemia in chronic kidney disease (CKD) Qualifiers: Chronic kidney disease stage: on chronic dialysis Qualified Code(s): N18.6 - End stage renal disease; D63.1 - Anemia in chronic kidney disease; D63.1 - Anemia in chronic kidney disease; Z99.2 - Dependence on renal dialysis; Z99.2 - Dependence on renal dialysis; Z99.2 - Dependence on renal dialysis; Z99.2 - Dependence on renal dialysis Is this a current diagnosis for this admission?: Yes Plan: Monitor H&H. Supportive transfusion. Consult nephrology for possible Procrit. (4) ESRD (end stage renal disease) on dialysis Is this a current diagnosis for this admission?: Yes Plan: On peritoneal dialysis. Electrolytes within normal limits. Patient stated she does not like to be placed on hemodialysis. Consult nephrology for possible dialysis. (5) Hypertension Qualifiers: Hypertension type: essential hypertension Qualified Code(s): I10 - Essential (primary) hypertension Is this a current diagnosis for this admission?: Yes Plan: Controlled. Restart hydrochlorothiazide, carvedilol, hydralazine. Monitor vitals adjust medications as needed. (6) Morbid obesity with BMI of 50.0-59.9, adult Is this a current diagnosis for this admission?: Yes Plan: Diet and lifestyle modification. (7) Diabetes mellitus type 2 in obese Is this a current diagnosis for this admission?: Yes Plan: A1c on admission 8.0 continue long-acting insulin Accu-Chek, sliding scale insulin. Diabetic diet. Monitor and adjust insulin dosage as needed. (8) Abdominal pain Qualifiers: Abdominal location: right lower quadrant Qualified Code(s): R10.31 - Right lower quadrant pain Is this a current diagnosis for this admission?: Yes Plan: Persistent. Abdominal CT negative for any acute abnormalities except for cirrhosis mild ascites and bilateral renal calculi with no evidence of obstructive uropathy. Patient is anuric and CT abdomen may not be too sensitive. PD cath fluid negative. At this point is not for sure if her abdominal pain is related to bilateral renal calculi. Patient will benefit from urology consultation. No urology consultation available. Outpatient neurology follow-up. Continue supportive measures. (9) Cirrhosis Is this a current diagnosis for this admission?: Yes Plan: Newly diagnosed. Recent CT and abdominal ultrasound positive for cirrhosis. Denies any previous history of alcohol abuse or any family history of cirrhosis or any autoimmune disease. Patient was counseled about recently diagnosed with cirrhosis and the need for her to follow up as outpatient with a GI specialist. Initial workup chest hepatitis panel, serum copper, KARLA, antimitochondrial antibody, anti-smooth muscle antibody, iron panel and total IgG level were done. Patient agreed to follow-up with the results as outpatient.
[2017-12-22 10:47] LABS: ABSOLUTE BASOPHILS # (AUTO) 0.1 10^3/uL (0.0-0.2); ABSOLUTE EOSINOPHILS # (AUTO) 0.4 10^3/uL (0.0-0.6); BASOPHILS % (AUTO) 0.8 % (0-2); HEMATOCRIT 29.6 % (36.0-47.0); HEMOGLOBIN 9.4 g/dL (12.0-15.5); LYMPHOCYTES % (AUTO) 18.9 % (13-45); MEAN CORPUSCULAR HEMOGLOBIN 25.6 pg (27.0-33.4); MEAN CORPUSCULAR HGB CONC 31.7 g/dL (32.0-36.0); MEAN CORPUSCULAR VOLUME 81 fl (80-97); MONOCYTES % (AUTO) 9.1 % (3-13); PLATELET COUNT 307 10^3/uL (150-450); RED BLOOD COUNT 3.67 10^6/uL (3.72-5.28); RED CELL DISTRIBUTION WIDTH 19.6 % (11.5-14.0); SEGMENTED NEUTROPHILS % (AUTO) 67.2 % (42-78); TOTAL CELLS COUNTED % (AUTO) 100 %; WHITE BLOOD COUNT 10.5 10^3/uL (4.0-10.5)
[2017-12-22] MEDS ORDERED: KETOROLAC TROMETHAMINE INJ/PF 30 MG/1 ML SDV ONE (10:50)
[2017-12-22] MEDS: DOCUSATE SODIUM 100 MG CAPSULE PO SCH ×2 (10:51→18:22)
[2017-12-22] MEDS: CALCITRIOL 0.25 MCG CAPSULE PO SCH (10:52)
[2017-12-22] MEDS ORDERED: KETOROLAC TROMETHAMINE INJ/PF 30 MG/1 ML SDV IV PRN (10:52)
[2017-12-22] MEDS: POTASSIUM CHLORIDE 10 MEQ CAPSULE.ER PO SCH (10:52)
[2017-12-22] MEDS: CARVEDILOL 12.5 MG TABLET PO SCH ×2 (10:52→22:46)
[2017-12-22] MEDS: ASPIRIN 81 MG TABLET, ENT COATED PO SCH (10:52)
[2017-12-22] MEDS: CALCIUM ACETATE 667 MG CAPSULE PO SCH ×3 (10:52→18:22)
[2017-12-22] MEDS: SALMETEROL XINAFOATE DISKUS 50 MCG/1 DOSE 28 DOSE IH SCH ×2 (10:53→22:46)
[2017-12-22] MEDS: PREGABALIN 75 MG CAPSULE PO SCH ×2 (10:53→22:46)
[2017-12-22 11:04] LABS: BLOOD UREA NITROGEN 77 mg/dL (7-20); CALCIUM 10.2 mg/dL (8.4-10.2); GLUCOSE 206 mg/dL (75-110); POTASSIUM 3.8 mmol/L (3.6-5.0)
[2017-12-22 11:10] LABS: CARBON DIOXIDE 25 mmol/L (22-30); CHLORIDE 92 mmol/L (98-107); SODIUM 140.2 mmol/L (137-145)
[2017-12-22 11:12] LABS: ANION GAP 24 (5-19)
--- NOTE | 2017-12-22 21:14 | RADIOLOGY REPORT (SQ) ---
EXAM DESCRIPTION: US ABDOMEN COMPLETED DATE/TME: 12/22/2017 00:00 CLINICAL HISTORY: 52 years, Female, Persistent abdominal pain. COMPARISON: CT 01-05. TECHNIQUE: Transverse and longitudinal sonographic images of the abdomen LIMITATIONS: None. FINDINGS: Nodular, cirrhotic change to the liver. No focal liver lesions. No definitive gallstones. The CBD measures 5 mm in diameter. Negative sonographic Lauren sign. A small volume of ascites is noted. The visualized portions of the pancreas are unremarkable. The spleen is unremarkable at 12 cm. The visualized portions of the abdominal aorta and inferior vena cava are unremarkable. The right kidney has maximal diameter of 9 cm, the left 11 cm. Punctate nonobstructing renal calculi bilaterally. No hydronephrosis or renal mass. IMPRESSION: Nodular, cirrhotic change to the liver. Small volume of ascites. Punctate nonobstructing renal calculi bilaterally. 2011 [employer]- All Rights Reserved
[2017-12-22] MEDS: INSULIN GLARGINE,HUM.REC.ANLOG 300 UNIT/3 ML INSULN.PEN SUBCUT SCH (22:46)
[2017-12-23] MEDS: HYDRALAZINE HCL 50 MG TABLET PO SCH ×2 (05:49→14:33)
[2017-12-23] MEDS: HEPARIN SOD (PORCINE) 5,000 UNIT/ML 1 ML SYRINGE SUBCUT SCH ×2 (05:50→14:35)
[2017-12-23 06:22] LABS: ABSOLUTE BASOPHILS # (AUTO) 0.1 10^3/uL (0.0-0.2); ABSOLUTE EOSINOPHILS # (AUTO) 0.5 10^3/uL (0.0-0.6); ABSOLUTE LYMPHOCYTES (AUTO) 2.3 10^3/uL (0.5-4.7); ABSOLUTE MONOCYTES (AUTO) 1.2 10^3/uL (0.1-1.4); ABSOLUTE NEUT (AUTO) 7.2 10^3/uL (1.7-8.2); BASOPHILS % (AUTO) 0.9 % (0-2); EOSINOPHILS % (AUTO) 4.3 % (0-6); HEMATOCRIT 26.9 % (36.0-47.0); HEMOGLOBIN 8.5 g/dL (12.0-15.5); LYMPHOCYTES % (AUTO) 20.5 % (13-45); MEAN CORPUSCULAR HEMOGLOBIN 25.4 pg (27.0-33.4); MEAN CORPUSCULAR HGB CONC 31.5 g/dL (32.0-36.0); MEAN CORPUSCULAR VOLUME 81 fl (80-97); MONOCYTES % (AUTO) 10.7 % (3-13); PLATELET COUNT 261 10^3/uL (150-450); RED BLOOD COUNT 3.34 10^6/uL (3.72-5.28); RED CELL DISTRIBUTION WIDTH 19.4 % (11.5-14.0); SEGMENTED NEUTROPHILS % (AUTO) 63.6 % (42-78); TOTAL CELLS COUNTED % (AUTO) 100 %; WHITE BLOOD COUNT 11.3 10^3/uL (4.0-10.5)
[2017-12-23 06:38] LABS: ALANINE AMINOTRANSFERASE 30 U/L (9-52); ALBUMIN 3.3 g/dL (3.5-5.0); ALKALINE PHOSPHATASE 123 U/L (38-126); ASPARTATE AMINO TRANSFERASE 12 U/L (14-36); BILIRUBIN,DIRECT 0.5 mg/dL (0.0-0.4); BILIRUBIN,TOTAL 0.5 mg/dL (0.2-1.3); BLOOD UREA NITROGEN 78 mg/dL (7-20); CALCIUM 10.2 mg/dL (8.4-10.2); CARBON DIOXIDE 25 mmol/L (22-30); GLUCOSE 209 mg/dL (75-110); POTASSIUM 3.9 mmol/L (3.6-5.0); TOTAL PROTEIN 6.4 g/dL (6.3-8.2)
[2017-12-23 06:44] LABS: CHLORIDE 92 mmol/L (98-107); SODIUM 139.4 mmol/L (137-145)
[2017-12-23 06:49] LABS: ANION GAP 22 (5-19)
[2017-12-23] MEDS: INSULIN LISPRO 100 UNIT/ML 3 ML VIAL SUBCUT PRN ×2 (07:40→12:29)
[2017-12-23] MEDS: CALCIUM ACETATE 667 MG CAPSULE PO SCH ×2 (09:17→14:34)
[2017-12-23] MEDS: PREGABALIN 75 MG CAPSULE PO SCH (09:17)
[2017-12-23] MEDS: CALCITRIOL 0.25 MCG CAPSULE PO SCH (09:17)
[2017-12-23] MEDS: POTASSIUM CHLORIDE 10 MEQ CAPSULE.ER PO SCH (09:17)
[2017-12-23] MEDS: CARVEDILOL 12.5 MG TABLET PO SCH (09:17)
[2017-12-23] MEDS: ASPIRIN 81 MG TABLET, ENT COATED PO SCH (09:17)
[2017-12-23] MEDS: DOCUSATE SODIUM 100 MG CAPSULE PO SCH (09:17)
[2017-12-23] MEDS: SALMETEROL XINAFOATE DISKUS 50 MCG/1 DOSE 28 DOSE IH SCH (09:18)
[2017-12-23 09:52] LABS: ABSOLUTE RETICS # 0.078 10^6/uL (0.028-0.122); RETICULOCYTE COUNT (AUTO) 2.29 % (0.66-2.85)
[2017-12-23 10:11] LABS: IRON(TIBC) 17.1 ug/dL (37-170)
[2017-12-23 11:20] LABS: FOLATE 8.13 ng/mL (>2.76)
[2017-12-23] MEDS: LACTULOSE SYRUP 20 GM/30 ML UDCUP PO SCH ×2 (11:20→14:34)
[2017-12-23] MEDS ORDERED: ONDANSETRON 4 MG TAB.RAPDIS PO PRN (11:30)
--- NOTE | 2017-12-23 14:45 | PDOC DISCHARGE SUMMARY ---
General - Admit/Disc Date/PCP Admission Date/Primary Care Provider: 12/20/17 17:06 JULIA GOMEZ PA-C Discharge Date: 12/23/17 - Discharge Diagnosis (1) Volume overload Is this a current diagnosis for this admission?: Yes (2) Acute on chronic combined systolic and diastolic CHF, NYHA class 2 Is this a current diagnosis for this admission?: Yes (3) Anemia in chronic kidney disease (CKD) Is this a current diagnosis for this admission?: Yes (4) ESRD (end stage renal disease) on dialysis Is this a current diagnosis for this admission?: Yes (5) Hypertension Is this a current diagnosis for this admission?: Yes (6) Morbid obesity with BMI of 50.0-59.9, adult Is this a current diagnosis for this admission?: Yes (7) Diabetes mellitus type 2 in obese Is this a current diagnosis for this admission?: Yes (8) Abdominal pain Is this a current diagnosis for this admission?: Yes (9) Cirrhosis Is this a current diagnosis for this admission?: Yes - Additional Information Discharge Diet: As Tolerated Discharge Activity: Activity As Tolerated Home Medications: Carvedilol [Coreg 25 mg Tablet] 25 mg PO Q12 04/29/17 Hydralazine HCl 100 mg PO Q8 04/29/17 Insulin Glargine,Hum.rec.anlog [Toulucila Solsanaar] 50 units SQ QHS 04/29/17 Pregabalin [Lyrica 75 mg Capsule] 75 mg PO Q12 04/29/17 Calcium Acetate [Phoslo 667 mg Capsule] 1,334 mg PO MEALS 07/01/17 Potassium Chloride [Klor-Con 10 Meq Capsule ER] 20 meq PO DAILY 07/01/17 Aspirin [Aspirin EC] 81 mg PO DAILY 11/11/17 Insulin Lispro [Humalog Kwikpen U-100] 6 unit SQ MEALS 11/11/17 Albuterol Sulfate [Proair HFA Inhalation Aerosol 8.5 gm MDI] 2 puff IH Q4HP PRN 12/20/17 Budesonide [Pulmicort 90 mcg Flexhaler] 1 inh IH Q12 12/20/17 Calcitriol [Rocaltrol 0.25 mcg Capsule] 0.25 mcg PO DAILY 12/20/17 Cinacalcet HCl [Sensipar 90 mg Tablet] 90 mg PO DAILY 12/20/17 Fluticasone Propionate [Flonase Nasal [place] 50 Mcg/[place] 16 gm] 1 spray NASL DAILY 12/20/17 History of Present Illness History of Present Illness: JASPREET STAFFORD is a 52 year old female past medical history of end-stage renal disease due to uncontrolled hypertension on peritoneal dialysis times 4 years, hypertension, diabetes, CHF secondary to uncontrolled hypertension [2D echo from 04/2017 combined systolic and diastolic failure] and morbid obesity. Presenting to ED complaining of PND, orthopnea, weight gain, shortness of breath associated with nonproductive cough and right-sided abdominal pain. Patient is compliant with her medication however she has been missing on her PD dialysis recently. States she used to get PD dialysis twice a day but recently she had cut down one due to being too busy. Denies any chest pain, fever, chills, nausea, vomiting, diarrhea, constipation or any urinary symptoms. Neurologist is Dr. Moran. Rope Walker Dr. Tesfaye last appointment 3 months ago. He is disabled living by herself has adult children and she has a mother who is living in [place]. She is full code but wants her mother to make decision if she is not able. Hospital Course Hospital Course: (1) Volume overload Due to noncompliance. Continue peritoneal dialysis while inpatient. We will continue peritoneal dialysis at home. Was advised on volume restriction and continuation of her PD dialysis and to follow-up with her title clerk. (2) Acute on chronic combined systolic and diastolic CHF, NYHA class 2 Due to problem #1. Moderately elevated BNP. Volume restriction. Nephrology consult for hemodialysis. Patient does not make any urine. Continue beta- blockers. (3) Anemia in chronic kidney disease (CKD) Monitor H&H. Supportive transfusion. Consult nephrology for possible Procrit. (4) ESRD (end stage renal disease) on dialysis On peritoneal dialysis. Electrolytes within normal limits. Patient stated she does not like to be placed on hemodialysis. Consult nephrology for possible dialysis. (5) Hypertension Controlled. Restart hydrochlorothiazide, carvedilol, hydralazine. Monitor vitals adjust medications as needed. (6) Morbid obesity with BMI of 50.0-59.9, adult Diet and lifestyle modification. (7) Diabetes mellitus type 2 in obese A1c on admission 8.0 continue long-acting insulin Accu-Chek, sliding scale insulin. Diabetic diet. Monitor and adjust insulin dosage as needed. (8) Abdominal pain Improved. Responded very well to Toradol. Abdominal CT negative for any acute abnormalities except for cirrhosis mild ascites and bilateral renal calculi with no evidence of obstructive uropaty. Follow-up abdominal ultrasound showed punctate nonobstructing renal calculi bilaterally. No hydro-nephrosis or renal mass. PD cath fluid negative. No urology consultation available. Outpatient neurology follow-up. (9) Cirrhosis Newly diagnosed. Recent CT and abdominal ultrasound positive for cirrhosis. Denies any previous history of alcohol abuse or any family history of cirrhosis or any autoimmune disease. Patient was counseled about recently diagnosed with cirrhosis and the need for her to follow up as outpatient with a GI specialist. Initial workup chest hepatitis panel, serum copper, KARLA, antimitochondrial antibody, anti-smooth muscle antibody, iron panel and total IgG level were done. Patient agreed to follow-up with the results as outpatient. Physical Exam Vital Signs: Temp Pulse Resp BP Pulse Ox 97.5 F 64 20 104/75 99 12/23/17 12:09 12/23/17 13:59 12/23/17 12:09 12/23/17 13:59 12/23/17 12:09 Intake & Output 12/22/17 12/23/17 12/24/17 06:59 06:59 06:59 Intake Total 20444 6000 Output Total 20002 7400 Balance -3989 -1400 Weight 175.4 kg 171.8 kg Results Laboratory Results: 12/23/17 05:04 12/23/17 05:04 12/23/17 12/23/17 12/23/17 05:04 05:04 05:04 WBC 11.3 H RBC 3.34 L Hgb 8.5 L Hct 26.9 L MCV 81 MCH 25.4 L MCHC 31.5 L RDW 19.4 H Plt Count 261 Seg Neutrophils % 63.6 Lymphocytes % 20.5 Monocytes % 10.7 Eosinophils % 4.3 Basophils % 0.9 Absolute Neutrophils 7.2 Absolute Lymphocytes 2.3 Absolute Monocytes 1.2 Absolute Eosinophils 0.5 Absolute Basophils 0.1 Retic Count (auto) 2.29 Absolute Retic 0.078 Sodium 139.4 Potassium 3.9 Chloride 92 L Carbon Dioxide 25 Anion Gap 22 H BUN 78 H Creatinine 18.48 H Est GFR ( Amer) 2 L Est GFR (Non-Af Amer) 2 L Glucose 209 H Calcium 10.2 Magnesium 2.0 Iron TIBC % Saturation Ferritin Total Bilirubin 0.5 AST 12 L ALT 30 Alkaline Phosphatase 123 Total Protein 6.4 Albumin 3.3 L Vitamin B12 Folate 12/23/17 05:04 WBC RBC Hgb Hct MCV MCH MCHC RDW Plt Count Seg Neutrophils % Lymphocytes % Monocytes % Eosinophils % Basophils % Absolute Neutrophils Absolute Lymphocytes Absolute Monocytes Absolute Eosinophils Absolute Basophils Retic Count (auto) Absolute Retic Sodium Potassium Chloride Carbon Dioxide Anion Gap BUN Creatinine Est GFR ( Amer) Est GFR (Non-Af Amer) Glucose Calcium Magnesium Iron 17.1 L TIBC 227 L % Saturation 8 Ferritin 274.00 H Total Bilirubin AST ALT Alkaline Phosphatase Total Protein Albumin Vitamin B12 589.0 Folate 8.13 Impressions: Chest X-Ray 12/20/17 10:06 IMPRESSION: 1. As on the prior examination dated 11/11/2017, cardiomegaly. Pulmonary vascular congestion. Mild prominence of the interstitial markings may be on the basis of edema. Abdomen/Pelvis CT 12/20/17 10:09 IMPRESSION: Cirrhosis. Mild ascites. Bilateral renal calculi. No evidence of obstructive uropathy. Abdomen Ultrasound 12/22/17 00:00 IMPRESSION: Nodular, cirrhotic change to the liver. Small volume of ascites. Punctate nonobstructing renal calculi bilaterally. 2010 [employer]- All Rights Reserved Qualifiers - * PATIENT BEING DISCHARGED WITH ANY OF THE FOLLOWING DIAGNOSIS: No
[2017-12-23 14:56] VITALS: BP 118/67
[2017-12-24 06:38] LABS: HEPATITIS A AB IGM Negative (Negative); HEPATITIS B CORE AB IGM Negative (Negative); HEPATITS B SURFACE ANTIGEN Negative (Negative)
[2017-12-24 07:13] LABS: HEPATITIS C VIRUS ANTIBODY <0.1 s/co ratio (0.0-0.9)
[2017-12-24] MEDS ORDERED: ASPIRIN 81 MG TABLET, ENT COATED PO SCH (10:00)
[2017-12-24 11:40] LABS: ANTICHROMATIN AB <0.2 AI (0.0-0.9); CENTROMERE B AB <0.2 AI (0.0-0.9); JO-1 ANTIBODY (ANACOMP) <0.2 AI (0.0-0.9); SJOGREN'S ANTI-SS-B AB <0.2 AI (0.0-0.9); SJOGREN'S SS-A ANTIBODY <0.2 AI (0.0-0.9)
[2017-12-24 13:39] LABS: DNA DOUBLE STRAND ANTIBODY ANA 3 IU/mL (0-9)
[2017-12-25 07:02] LABS: MITOCHONDRIAL (M2) ANTIBODY 33.5 Units (0.0-20.0)
== END 2017-12-23 15:04 | disposition home or self-care (01) | DRG 291 ==
LOC: ER 09:51 → EH 17:06 → 3S 20:15
PROVIDERS: ADMIT Emergency Medicine; ATTEND Emergency Medicine
DX: I13.2 Hypertensive heart and chronic kidney disease with heart failure and with stage 5 chronic kidney disease, or end stage renal disease (principal); N18.6 End stage renal disease; I50.43 Acute on chronic combined systolic (congestive) and diastolic (congestive) heart failure; Z68.43 Body mass index [BMI] 50.0-59.9, adult; E11.22 Type 2 diabetes mellitus with diabetic chronic kidney disease; Z99.2 Dependence on renal dialysis; K21.9 Gastro-esophageal reflux disease without esophagitis; E66.01 Morbid (severe) obesity due to excess calories; E87.79 Other fluid overload; E78.5 Hyperlipidemia, unspecified; D63.1 Anemia in chronic kidney disease; J45.20 Mild intermittent asthma, uncomplicated; N20.0 Calculus of kidney; K74.60 Unspecified cirrhosis of liver; E11.21 Type 2 diabetes mellitus with diabetic nephropathy; Z83.3 Family history of diabetes mellitus; G47.30 Sleep apnea, unspecified; Z79.4 Long term (current) use of insulin; Z88.5 Allergy status to narcotic agent; Z88.8 Allergy status to other drugs, medicaments and biological substances; Z91.15 Patient's noncompliance with renal dialysis; Z82.49 Family history of ischemic heart disease and other diseases of the circulatory system; Z90.710 Acquired absence of both cervix and uterus; Z98.51 Tubal ligation status; Z79.51 Long term (current) use of inhaled steroids; Z84.1 Family history of disorders of kidney and ureter
CPT/HCPCS: 36415; 71045; 74176; 76700; 80048; 80053; 80074; 82525; 82607; 82728; 82746; 82784; 82803; 82962; 83036; 83540; 83550; 83735; 83880; 84484; 85025; 85045; 86225; 86235; 86256; 87070; 87075; 87205; 89050; 90945; 90947; 93005; 93010; 94640; 96374; 96375; 99285; J1644; J1815; J1885; J2270; J2405; J3490

== ENCOUNTER → 2018-01-02 | Outpatient (CLI) | payer MEDICARE ==
[2018-01-03 06:38] LABS: HEPATITIS A AB IGM Negative (Negative); HEPATITIS B CORE AB IGM Negative (Negative); HEPATITS B SURFACE ANTIGEN Negative (Negative)
[2018-01-03 08:23] LABS: HEPATITIS C VIRUS ANTIBODY <0.1 s/co ratio (0.0-0.9)
[2018-01-03 14:39] LABS: ANTINUCLEAR ANTIBODIES Positive (Negative); RNP AB 4.3 AI (0.0-0.9); SJOGREN'S ANTI-SS-B AB <0.2 AI (0.0-0.9); SJOGREN'S SS-A ANTIBODY <0.2 AI (0.0-0.9); SMITH AB ANA <0.2 AI (0.0-0.9)
[2018-01-03 14:52] LABS: DNA DOUBLE STRAND ANTIBODY ANA 4 IU/mL (0-9)
== END ==
LOC: OD 10:07
PROVIDERS: ATTEND Internal Medicine Gastroenterology
DX: K74.60 Unspecified cirrhosis of liver (principal)
CPT/HCPCS: 36415; 80074; 82172; 82247; 82390; 82728; 82977; 83010; 83540; 83883; 84460; 86038; 86256

== ENCOUNTER → 2018-01-15 | Day surgery (SDC) | payer MEDICARE, MEDICAID | LOC: RAD 08:49 | PROVIDERS: ATTEND Internal Medicine Gastroenterology | DX: R69 Illness, unspecified (principal) ==

== ENCOUNTER 2018-01-22 08:29 | Day surgery (SDC) | payer MEDICARE, MEDICAID ==
[2018-01-22 08:59] LABS: HEMATOCRIT 30.3 % (36.0-47.0); HEMOGLOBIN 9.8 g/dL (12.0-15.5); MEAN CORPUSCULAR HEMOGLOBIN 25.8 pg (27.0-33.4); MEAN CORPUSCULAR HGB CONC 32.3 g/dL (32.0-36.0); MEAN CORPUSCULAR VOLUME 80 fl (80-97); PLATELET COUNT 281 10^3/uL (150-450); RED BLOOD COUNT 3.81 10^6/uL (3.72-5.28); RED CELL DISTRIBUTION WIDTH 19.1 % (11.5-14.0); WHITE BLOOD COUNT 8.6 10^3/uL (4.0-10.5)
[2018-01-22 09:19] LABS: BLOOD UREA NITROGEN 64 mg/dL (7-20); POTASSIUM 3.5 mmol/L (3.6-5.0)
[2018-01-22 09:20] LABS: INTERNATIONAL RATION (INR) 1.07; PROTHROMBIN TIME 14.5 SEC (11.4-15.4)
[2018-01-22 09:21] LABS: PARTIAL THROMBOPLASTIN TIME 35.3 SEC (23.5-35.8)
[2018-01-22] MEDS ORDERED: FENTANYL CITRATE INJ/PF 100 MCG/2 ML AMPUL ONE (12:04)
[2018-01-22] MEDS ORDERED: MIDAZOLAM 2 MG/2 ML INJ ONE (12:04)
[2018-01-22] MEDS ORDERED: LIDOCAINE 1% INJ-PF (10 MG/ML) 30 ML SDV ONE (12:04)
[2018-01-22 13:28] VITALS: BP 198/109
--- NOTE | 2018-01-22 13:55 | RADIOLOGY REPORT (SQ) ---
EXAM DESCRIPTION: CT ABDOMEN NO ORAL OR IV COMPLETED DATE/TIME: 01/22/2018 12:47 pm REASON FOR STUDY: LIVER BIOPSY, ABNORMAL IMMUNOLOGICAL FINDINGS IN SERUM R76.8 OTHER SPECIFIED ABNO RMAL IMMUNOLOGICAL FINDINGS IN SER Z79.01 HALF-WAY (CURRENT) USE OF ANTICOAGULANTS COMPARISON: CT abdomen 12/20/2017 TECHNIQUE: CT scan of the abdomen performed without intravenous contrast and without oral contrast. Images reviewed with lung, soft tissue, and bone windows. Reconstructed coronal and sagittal MPR im ages reviewed. All images stored on PACS. All CT scanners at this facility use dose modulation, iterative reconstruction, and/or weight based d osing when appropriate to reduce radiation dose to as low as reasonably achievable (ALARA). [facility]: Dose Right [facility]: CareDose [facility]: Dose Right [facility]: Teradose 4D [facility]: [employer] RADIATION DOSE: CT Rad equipment meets quality standard of care and radiation dose reduction techniq ues were employed. CTDIvol: 20.3 mGy. DLP: 544 mGy-cm.mGy. LIMITATIONS: None. FINDINGS: This study was performed for biopsy planning. Vascular calcifications are present throughout the liver. There is right upper quadrant free fluid related to patient's peritoneal dialysis. This finding, zaynab ng with consistently elevated blood pressures from the time of arrival to the hospital to the CT suit e for considered. Liver biopsy canceled. Patient was instructed to follow-up with Dr. Modi and he r septic cleaner for evaluation of hypertension. IMPRESSION: No liver biopsy performed today TECHNICAL DOCUMENTATION: JOB ID: [id number] Quality ID # [id number]: Final reports with documentation of one or more dose reduction techniques (e.g., Au tomated exposure control, adjustment of the mA and/or kV according to patient size, use of iterative reconstruction technique) 2010 [employer]- All Rights Reserved Reading location - IP/workstation name: [email or web address]
== END 2018-01-22 13:15 | disposition home or self-care (01) ==
LOC: RAD 08:29
PROVIDERS: ATTEND Internal Medicine Gastroenterology
DX: Z53.8 Procedure and treatment not carried out for other reasons (principal); I12.0 Hypertensive chronic kidney disease with stage 5 chronic kidney disease or end stage renal disease; E11.22 Type 2 diabetes mellitus with diabetic chronic kidney disease; N18.6 End stage renal disease; K74.60 Unspecified cirrhosis of liver; R18.8 Other ascites; R76.8 Other specified abnormal immunological findings in serum; Z79.01 Long term (current) use of anticoagulants; G47.33 Obstructive sleep apnea (adult) (pediatric); Z99.2 Dependence on renal dialysis; E11.42 Type 2 diabetes mellitus with diabetic polyneuropathy; Z79.4 Long term (current) use of insulin; Z79.82 Long term (current) use of aspirin; Z79.891 Long term (current) use of opiate analgesic; Z79.899 Other long term (current) drug therapy; Z88.5 Allergy status to narcotic agent; Z88.8 Allergy status to other drugs, medicaments and biological substances
CPT/HCPCS: 36415; 82962; 84520; 82565; 84132; 85027; 85610; 85730; 74150; J2250; J3010; J3490

== ENCOUNTER → 2018-01-28 | Outpatient (CLI) | payer MEDICARE, MEDICAID ==
--- NOTE | 2018-01-28 13:06 | RADIOLOGY REPORT (SQ) ---
EXAM DESCRIPTION: VENOUS UNILATERAL LOWER COMPLETED DATE/TIME: 01/28/2018 12:39 pm REASON FOR STUDY: LLE EDEMA R60.0 LOCALIZED EDEMA COMPARISON: None. TECHNIQUE: Dynamic and static green scale and color images acquired of the left leg venous system. Se lected spectral images acquired with additional compression and augmentation maneuvers. The contralat eral common femoral vein and saphenofemoral junction were also imaged. Images stored on PACS. LIMITATIONS: None. FINDINGS: COMMON FEMORAL: Normal phasicity, compression and augmentation. No visualized echogenic ma terial on green scale. No defects on color images. FEMORAL: Normal compression and augmentation. No visualized echogenic material on green scale. No defe cts on color images. POPLITEAL: Normal compression, augmentation. No visualized echogenic material on green scale. No defec ts on color images. CALF VESSELS: Normal compression, augmentation. No visualized echogenic material on green scale. No de fects on color images. GSV and SSV: Normal compression, augmentation. No visualized echogenic material on green scale. No def ects on color images. ANY DEEP VENOUS INSUFFICIENCY: Not evaluated. ANY EVIDENCE OF POPLITEAL CYST: No. OTHER: No other significant finding. CONTRALATERAL COMMON FEMORAL VEIN AND SAPHENOFEMORAL JUNCTION: Normal phasicity, compression and augmentation. No visualized echogenic material on green scale. No de fects on color images. IMPRESSION: 1. NO EVIDENCE OF DVT OR SVT IN THE LEFT LEG. TECHNICAL DOCUMENTATION: JOB ID: [id number] [employer]- All Rights Reserved Reading location - IP/workstation name: [email or web address]
== END ==
LOC: SP 10:59
PROVIDERS: ATTEND Physician Assistant
DX: R60.0 Localized edema (principal)
CPT/HCPCS: 93971

== ENCOUNTER 2018-02-02 11:04 | Emergency (ER) | payer MEDICARE, MEDICAID ==
--- NOTE | 2018-02-02 11:17 | ER Document Report ---
ED Medical Screen (RME) - General Chief Complaint: Dialysis Catheter Problem Stated Complaint: CATHETER PROBLEM Time Seen by Provider: 02/02/18 11:10 Mode of Arrival: Ambulatory Information source: Patient, [facility] Records Notes: 52-year-old female that performs peritoneal dialysis presents after her atrial catheter fell out this morning while showering. I have greeted and performed a rapid initial assessment of this patient. A comprehensive ED assessment and evaluation of the patient, analysis of test results and completion of medical decision making process we will be contacted by additional ED providers. PHYSICAL EXAMINATION: Vital signs reviewed GENERAL: Well-appearing, well-nourished and in no acute distress. LUNGS: No respiratory distress Musculoskeletal: Normal range of motion NEUROLOGICAL: Normal speech, normal gait. PSYCH: Normal mood, normal affect. SKIN: Warm, Dry, normal turgor, no rashes or lesions noted. TRAVEL OUTSIDE OF THE [place] IN LAST 30 DAYS: No - HPI Onset: Just prior to arrival Onset/Duration: Sudden Quality of pain: No pain Severity: None Pain Level: Denies Associated Symptoms: None Exacerbated by: Denies Relieved by: Denies Similar symptoms previously: No Recently seen / treated by doctor: Yes - Related Data Smoking: Non-smoker Frequency of alcohol use: None Drug Abuse: None Allergies/Adverse Reactions: oxycodone HCl [From Percocet] Allergy (Verified 01/22/18 09:24) Nausea prochlorperazine edisylate [From Compazine] Allergy (Verified 01/22/18 09:24) Hallucinations propoxyphene napsylate [From Darvocet-N 100] Allergy (Verified 01/22/18 09:24) Hallucinations Past Medical History - Social History Family history: Reviewed & Not Pertinent - Past Medical History Cardiac Medical History: Reports: Hx Congestive Heart Failure, Hx Hypercholesterolemia, Hx Hypertension Denies: Hx Coronary Artery Disease, Hx Heart Attack Pulmonary Medical History: Reports: Hx Asthma, Hx Sleep Apnea Denies: Hx Bronchitis, Hx COPD, Hx Pneumonia Neurological Medical History: Denies: Hx Cerebrovascular Accident, Hx Seizures Endocrine Medical History: Reports: Hx Diabetes Mellitus Type 2 Renal/ Medical History: Reports: Hx End Stage Renal Disease - Peritoneal dialysis, Hx Kidney Stones, Hx Peritoneal Dialysis - due @ 2100 GI Medical History: Reports: Hx Gastroesophageal Reflux Disease Musculoskeltal Medical History: Denies Hx Arthritis Psychiatric Medical History: Denies: Hx Depression Past Surgical History: Reports: Hx Abdominal Surgery - peritoneal dialysis fistula, Hx Hysterectomy, Hx Tubal Ligation, Other - Peritoneal dialysis catheter placement - Immunizations Immunizations up to date: No Hx Diphtheria, Pertussis, Tetanus Vaccination: Yes History of Influenza Vaccine for 11/2016 - 04/2017 Season: Yes Influenza Administration Date for 11/2016 - 04/2017 Season: 11/18/17 Doctor's Discharge - Discharge Referrals: JULIA GOMEZ PA-C [Primary Care Provider] - Follow up as needed
--- NOTE | 2018-02-02 11:45 | ER Document Report ---
ED Dialysis Cath/Shunt Problem - General Chief Complaint: Dialysis Catheter Problem Stated Complaint: CATHETER PROBLEM Time Seen by Provider: 02/02/18 11:10 Mode of Arrival: Ambulatory TRAVEL OUTSIDE OF THE [place] IN LAST 30 DAYS: No - HPI Notes: Patient is a 52-year-old female that presents to the emergency department for chief complaint of peritoneal dialysis catheter fell out. While patient was in the shower this morning her peritoneal dialysis catheter came out. She does dialysis nightly and did complete her course last night. She has no other complaints. She denies any falls. She denies abdominal pain, fever, shortness of breath, chest pain, nausea and vomiting. She sees Dr. Parks for nephrology and believes her peritoneal dialysis was placed at this facility. Past Medical History: Renal failure Past Surgical History: Peritoneal dialysis catheter Social History: Denies drugs alcohol and tobacco Family History: Reviewed and noncontributory for presenting illness Allergies: Reviewed, see documented allergy list. REVIEW OF SYSTEMS: CONSTITUTIONAL : No fever No chills No diaphoresis No recent illness EENT: No vision changes No congestion No sore throat CARDIOVASCULAR: No chest pain No palpitations RESPIRATORY: No shortness of breath No cough No difficulty breathing GASTROINTESTINAL: No abdominal pain No nausea No vomiting No diarrhea GENITOURINARY: No dysuria No hematuria No difficulty urinating MUSCULOSKELETAL: No back pain No leg pain No arm pain SKIN: No rashes No lesions LYMPHATIC: No swollen, enlarged glands. NEUROLOGICAL: No lightheadedness No headache No weakness No paresthesias PSYCHIATRIC: No anxiety No depression PHYSICAL EXAMINATION: Vital signs reviewed, nursing noted reviewed. GENERAL: Well-appearing, obese and in no acute distress. HEAD: Atraumatic, normocephalic. EYES: Eyes appear normal, extraocular movements intact, sclera anicteric, conjunctiva are normal. ENT: nares patent, oropharynx clear without exudates. Moist mucous membranes. NECK: Normal range of motion, supple without lymphadenopathy LUNGS: Breath sounds clear to auscultation bilaterally and equal. No wheezes rales or rhonchi. HEART: Regular rate and rhythm without murmurs ABDOMEN: Left lower peritoneal dialysis catheter insertion site clean, dry, and intact. Plastic dialysis catheter tubing is coming out of ostomy. Abdomen soft , nontender, normoactive bowel sounds. No rebound, guarding, or rigidity. No masses appreciated. EXTREMITIES: Nontender, good range of motion, bilateral lower extremity edema NEUROLOGICAL: No focal neurological deficits. Moves all extremities spontaneously Motor and sensory grossly intact on exam. PSYCH: Normal mood, normal affect. SKIN: Warm, Dry, normal turgor, no rashes or lesions noted on exposed skin - Related Data Allergies/Adverse Reactions: oxycodone HCl [From Percocet] Allergy (Verified 01/22/18 09:24) Nausea prochlorperazine edisylate [From Compazine] Allergy (Verified 01/22/18 09:24) Hallucinations propoxyphene napsylate [From Darvocet-N 100] Allergy (Verified 01/22/18 09:24) Hallucinations Past Medical History - General Information source: Patient, [facility] Records - Social History Smoking Status: Never Smoker Chew tobacco use (# tins/day): No Frequency of alcohol use: None Drug Abuse: None Family History: Reviewed & Not Pertinent, DM, Hypertension Patient has suicidal ideation: No Patient has homicidal ideation: No - Past Medical History Cardiac Medical History: Reports: Hx Congestive Heart Failure, Hx Hypercholesterolemia, Hx Hypertension Denies: Hx Coronary Artery Disease, Hx Heart Attack Pulmonary Medical History: Reports: Hx Asthma, Hx Sleep Apnea Denies: Hx Bronchitis, Hx COPD, Hx Pneumonia Neurological Medical History: Denies: Hx Cerebrovascular Accident, Hx Seizures Endocrine Medical History: Reports: Hx Diabetes Mellitus Type 2 Renal/ Medical History: Reports: Hx End Stage Renal Disease - Peritoneal dialysis, Hx Kidney Stones, Hx Peritoneal Dialysis GI Medical History: Reports: Hx Gastroesophageal Reflux Disease Musculoskeletal Medical History: Denies Hx Arthritis Psychiatric Medical History: Denies: Hx Depression Past Surgical History: Reports: Hx Abdominal Surgery - peritoneal dialysis fistula, Hx Hysterectomy, Hx Tubal Ligation, Other - Peritoneal dialysis catheter placement - Immunizations Immunizations up to date: No Hx Diphtheria, Pertussis, Tetanus Vaccination: Yes Hx Pneumococcal Vaccination: 11/18/16 Physical Exam - Vital signs Vitals: Temp Pulse Resp BP Pulse Ox 98.4 F 86 18 185/96 H 99 02/02/18 11:39 02/02/18 11:39 02/02/18 11:39 02/02/18 11:39 02/02/18 11:39 Course - Re-evaluation Re-evalutation: 02/02/18 11:44 Vitals reviewed. Nursing notes reviewed. Patient is asymptomatic and in no respiratory distress. I am attempting to reach nephrology for recommendations on reinsertion of peritoneal dialysis catheter. 02/02/18 12:[address] Casper however nephrology is not on-call today. I did discuss her care with nephrology at [facility], Dr. Hilliard. He states it is okay to repair/replace patient's catheter in the emergency room. He recommends Keflex for 5 days which will be prescribed. Patient was counseled on symptoms of infection and return precautions. She was told to see nephrology tomorrow for follow-up. She was discharged in stable condition. 02/02/18 12:50 Patient's dialysis catheter was replaced by Keke William - Vital Signs Vital signs: Temp Pulse Resp BP Pulse Ox 98.4 F 86 18 185/96 H 99 02/02/18 11:39 02/02/18 11:39 02/02/18 11:39 02/02/18 11:39 02/02/18 11:39 - Diagnostic Test Radiology reviewed: Image reviewed Discharge - Discharge Clinical Impression: Displacement of intraperitoneal dialysis catheter, initial encounter Condition: Stable Disposition: HOME, SELF-CARE Additional Instructions: Please return to the emergency department if you have any worsening, or concern of your symptoms. Please return to the emergency department if you develop chest pain, difficulty breathing, severe abdominal pain, or ongoing vomiting. Please follow-up with your primary care physician in 2-3 days and any other recommended physicians. If prescribed, take all medications as directed. If you have any questions or concerns do not hesitate to return the emergency department for evaluation. Take the full course of antibiotics prescribed as directed. Tomorrow see your dialysis nurse. Call Dr. Parks for follow-up appointment. Return for any new or worsening symptoms. Prescriptions: Cephalexin Monohydrate [Keflex 500 mg Capsule] 500 mg PO BID 5 Days capsule Referrals: JULIA GOMEZ PA-C [Primary Care Provider] - Follow up as needed LIDIA PARKS MD [ACTIVE STAFF] - Follow up tomorrow
--- NOTE | 2018-02-02 13:06 | RADIOLOGY REPORT (SQ) ---
EXAM DESCRIPTION: KUB/ABDOMEN (SINGLE VIEW) COMPLETED DATE/TIME: 02/02/2018 12:44 pm REASON FOR STUDY: peritoneal cather pacement COMPARISON: None. NUMBER OF VIEWS: One view. TECHNIQUE: Supine radiographic image of the abdomen acquired. LIMITATIONS: None. FINDINGS: BOWEL GAS PATTERN: Normal bowel gas pattern. No dilated loops. CALCIFICATIONS: No suspicious calcifications. SOFT TISSUES: No gross mass or suggestion of organomegaly. HARDWARE: Peritoneal catheter coiled in the pelvis. BONES: No bone lesions or fracture. OTHER: No other significant finding. IMPRESSION: Intact peritoneal catheter. Reading location - IP/workstation name: [email or web address]
[2018-02-02 14:48] VITALS: BP 172/112
== END 2018-02-02 14:12 | disposition home or self-care (01) ==
LOC: ER 11:04
DX: T85.621A Displacement of intraperitoneal dialysis catheter, initial encounter (principal); Y82.8 Other medical devices associated with adverse incidents; Y84.1 Kidney dialysis as the cause of abnormal reaction of the patient, or of later complication, without mention of misadventure at the time of the procedure; I12.0 Hypertensive chronic kidney disease with stage 5 chronic kidney disease or end stage renal disease; E11.22 Type 2 diabetes mellitus with diabetic chronic kidney disease; N18.6 End stage renal disease; Z99.2 Dependence on renal dialysis; J45.909 Unspecified asthma, uncomplicated; Z88.5 Allergy status to narcotic agent; Z88.8 Allergy status to other drugs, medicaments and biological substances
CPT/HCPCS: 74018; 99284

== ENCOUNTER 2018-02-14 16:11 | Emergency (ER) | payer MEDICARE, MEDICAID ==
--- NOTE | 2018-02-14 17:11 | ER Document Report ---
ED Medical Screen (RME) - General Chief Complaint: Shortness Of Breath Stated Complaint: SHORT OF BREATH Time Seen by Provider: 02/14/18 17:10 Notes: Patient says she thinks she is fluid overloaded and feels short of breath with the cough. The cough is been present for a long time, but the shortness of breath is gotten bad over the past week. Patient has renal disease and is on peritoneal dialysis under the care of Dr. Moran. Patient has had some chills but no fever. TRAVEL OUTSIDE OF THE [place] IN LAST 30 DAYS: No - Related Data Allergies/Adverse Reactions: oxycodone HCl [From Percocet] Allergy (Verified 02/14/18 16:12) Nausea prochlorperazine edisylate [From Compazine] Allergy (Verified 02/14/18 16:12) Hallucinations propoxyphene napsylate [From Darvocet-N 100] Allergy (Verified 02/14/18 16:12) Hallucinations Past Medical History - Social History Chew tobacco use (# tins/day): No Frequency of alcohol use: None Drug Abuse: None Family history: Reviewed & Not Pertinent - Past Medical History Cardiac Medical History: Reports: Hx Congestive Heart Failure, Hx Hypercholesterolemia, Hx Hypertension Denies: Hx Coronary Artery Disease, Hx Heart Attack Pulmonary Medical History: Reports: Hx Asthma, Hx Sleep Apnea Denies: Hx Bronchitis, Hx COPD, Hx Pneumonia Neurological Medical History: Denies: Hx Cerebrovascular Accident, Hx Seizures Endocrine Medical History: Reports: Hx Diabetes Mellitus Type 2 Renal/ Medical History: Reports: Hx End Stage Renal Disease - Peritoneal dialysis, Hx Kidney Stones, Hx Peritoneal Dialysis GI Medical History: Reports: Hx Gastroesophageal Reflux Disease Musculoskeltal Medical History: Denies Hx Arthritis Psychiatric Medical History: Denies: Hx Depression Past Surgical History: Reports: Hx Abdominal Surgery - peritoneal dialysis fis dwight, Hx Hysterectomy, Hx Tubal Ligation, Other - Peritoneal dialysis catheter placement - Immunizations Immunizations up to date: No Hx Diphtheria, Pertussis, Tetanus Vaccination: Yes History of Influenza Vaccine for 11/2016 - 04/2017 Season: Yes Influenza Administration Date for 11/2016 - 04/2017 Season: 11/18/17 Physical Exam - Vital signs Vitals: Temp Pulse Resp BP Pulse Ox 98.4 F 101 H 22 H 203/95 H 98 02/14/18 16:23 02/14/18 16:23 02/14/18 16:23 02/14/18 16:23 02/14/18 16:23 Course - Vital Signs Vital signs: Temp Pulse Resp BP Pulse Ox 98.4 F 101 H 22 H 203/95 H 98 02/14/18 16:23 02/14/18 16:23 02/14/18 16:23 02/14/18 16:23 02/14/18 16:23 Doctor's Discharge - Discharge Referrals: Deandra JANE MD [Primary Care Provider] - Follow up as needed
[2018-02-14 17:38] LABS: ABSOLUTE BASOPHILS # (AUTO) 0.1 10^3/uL (0.0-0.2); ABSOLUTE EOSINOPHILS # (AUTO) 0.4 10^3/uL (0.0-0.6); ABSOLUTE LYMPHOCYTES (AUTO) 1.9 10^3/uL (0.5-4.7); ABSOLUTE NEUT (AUTO) 5.7 10^3/uL (1.7-8.2); BASOPHILS % (AUTO) 1.2 % (0-2); HEMATOCRIT 30.4 % (36.0-47.0); HEMOGLOBIN 9.9 g/dL (12.0-15.5); LYMPHOCYTES % (AUTO) 20.7 % (13-45); MEAN CORPUSCULAR HGB CONC 32.8 g/dL (32.0-36.0); MEAN CORPUSCULAR VOLUME 79 fl (80-97); PLATELET COUNT 266 10^3/uL (150-450); RED BLOOD COUNT 3.83 10^6/uL (3.72-5.28); SEGMENTED NEUTROPHILS % (AUTO) 63.1 % (42-78); TOTAL CELLS COUNTED % (AUTO) 100 %
--- NOTE | 2018-02-14 17:52 | ER Document Report ---
ED Respiratory Problem - General Chief Complaint: Shortness Of Breath Stated Complaint: SHORT OF BREATH Time Seen by Provider: 02/14/18 17:10 Mode of Arrival: Ambulatory Notes: 52-year-old female presented to ED for complaint of shortness of breath and feels like she has fluid on her lungs. She states her cough is been present for a long time but the shortness of breath got much worse over the past week. She states she saw her primary care about a week ago and she put on Tessalon Perles for her cough. She saw her kidney prior 2 weeks ago 3-month 24 was no changes in medication. She states she does not think she is really gained very much weight may be a pound during this time of shortness of breath. She denies smoking and drinking. She states she does have a history of congestive heart failure high cholesterol high blood pressure and renal failure and states she is on peritoneal dialysis. She also has asthma and sleep apnea. TRAVEL OUTSIDE OF THE [place] IN LAST 30 DAYS: No - HPI Patient complains to provider of: Asthma, Cough, Short of breath Onset: Other - "A long time "worse for the last week Duration: Continuous, Worse/persistent Initiating Event: URI Quality of pain: Achy, Other - Achy in shortness of breath Severity: Mild Pain Level: 1 Context: Hx asthma, Hx CHF, Other - Renal failure Short of Breath: Mild Cough: Nonproductive Sputum amount: None Associated symptoms: Chills, Congestion, Cough, PND. denies: Fever Similar symptoms previously: Yes Recently seen / treated by doctor: Yes - Related Data Allergies/Adverse Reactions: oxycodone HCl [From Percocet] Allergy (Verified 02/14/18 16:12) Nausea prochlorperazine edisylate [From Compazine] Allergy (Verified 02/14/18 16:12) Hallucinations propoxyphene napsylate [From Darvocet-N 100] Allergy (Verified 02/14/18 16:12) Hallucinations Past Medical History - General Information source: Patient - Social History Smoking Status: Never Smoker Cigarette use (# per day): No Chew tobacco use (# tins/day): No Smoking Education Provided: No Frequency of alcohol use: None Drug Abuse: None Lives with: Family Family History: Reviewed & Not Pertinent, DM, Hypertension Patient has suicidal ideation: No Patient has homicidal ideation: No - Past Medical History Cardiac Medical History: Reports: Hx Congestive Heart Failure, Hx Hypercho lesterolemia, Hx Hypertension Pulmonary Medical History: Reports: Hx Asthma, Hx Sleep Apnea EENT Medical History: Reports: None Neurological Medical History: Reports: None Endocrine Medical History: Reports: Hx Diabetes Mellitus Type 2 Renal/ Medical History: Reports: Hx End Stage Renal Disease - Peritoneal dialysis, Hx Kidney Stones, Hx Peritoneal Dialysis Malignancy Medical History: Reports: None GI Medical History: Reports: Hx Gastroesophageal Reflux Disease Musculoskeletal Medical History: Reports None Skin Medical History: Reports None Psychiatric Medical History: Reports: None Traumatic Medical History: Reports: None Infectious Medical History: Reports: None Past Surgical History: Reports: Hx Abdominal Surgery - peritoneal dialysis fistula, Hx Hysterectomy, Hx Tubal Ligation, Other - Peritoneal dialysis catheter placement - Immunizations Immunizations up to date: No Hx Diphtheria, Pertussis, Tetanus Vaccination: Yes Hx Pneumococcal Vaccination: 11/18/16 Review of Systems - Review of Systems Constitutional: No symptoms reported EENT: Nose congestion, Nose discharge, Sinus discharge Cardiovascular: No symptoms reported Respiratory: Cough, Short of breath Gastrointestinal: No symptoms reported Genitourinary: No symptoms reported Female Genitourinary: No symptoms reported Musculoskeletal: No symptoms reported Skin: No symptoms reported Hematologic/Lymphatic: No symptoms reported Neurological/Psychological: No symptoms reported -: Yes All other systems reviewed and negative Physical Exam - Vital signs Vitals: Temp Pulse Resp BP Pulse Ox 98.4 F 101 H 22 H 203/95 H 98 02/14/18 16:23 02/14/18 16:23 02/14/18 16:23 02/14/18 16:23 02/14/18 16:23 Interpretation: Normal - General General appearance: Appears well, Alert - HEENT Head: Normocephalic, Atraumatic Eyes: Normal Pupils: PERRL Ears: Normal External canal: Normal Tympanic membrane: Normal Sinus: Normal Nasal: Purulent discharge, Swelling Mouth/Lips: Normal Mucous membranes: Normal Pharynx: Post nasal drainage Neck: Normal - Respiratory Respiratory status: No respiratory distress Chest status: Nontender Breath sounds: Nonproductive cough Chest palpation: Normal - Cardiovascular Rhythm: Regular Heart sounds: Normal auscultation Murmur: No - Abdominal Inspection: Normal Distension: No distension Bowel sounds: Normal Tenderness: Nontender Organomegaly: No organomegaly - Back Back: Normal, Nontender - Extremities General upper extremity: Normal inspection, Nontender, Normal color, Normal ROM, Normal temperature General lower extremity: Normal inspection, Nontender, Normal color, Normal ROM, Normal temperature, Normal weight bearing. No: Mj's sign - Neurological Neuro grossly intact: Yes Cognition: Normal Orientation: AAOx4 Meghan Coma Scale Eye Opening: Spontaneous [place] Coma Scale Verbal: Oriented Meghan Coma Scale Motor: Obeys Commands Meghan Coma Scale Total: 15 Speech: Normal Motor strength normal: LUE, RUE, LLE, RLE Sensory: Normal - Psychological Associated symptoms: Normal affect, Normal mood - Skin Skin Temperature: Warm Skin Moisture: Dry Skin Color: Normal Course - Re-evaluation Re-evalutation: 02/14/18 18:46 Discussed x-ray and labs with Dr. Saucedo and with patient. Written report of x- rays given to patient as well as reports of labs. Patient was encouraged to call Dr. Moran next week and schedule a follow-up appointment as soon as possible to follow-up her shortness of breath. Her x-ray is actually better than the last visit. Will discharge patient home with instructions to return for any increase in shortness of breath. Patient verbalized understanding and agreement with treatment plan. Patient was also urged to get a wedge pillow to help her sit up in bed at night as that is when she is more short of breath. - Vital Signs Vital signs: Temp Pulse Resp BP Pulse Ox 98.4 F 101 H 20 173/124 H 98 02/14/18 16:23 02/14/18 16:23 02/14/18 18:57 02/14/18 18:58 02/14/18 18:57 - Laboratory Result Diagrams: 02/14/18 17:17 02/14/18 17:17 Laboratory results interpreted by me: 02/14/18 02/14/18 17:17 17:17 Hgb 9.9 L Hct 30.4 L MCV 79 L MCH 26.0 L RDW 19.0 H Potassium 3.3 L Chloride 95 L BUN 79 H Creatinine 18.58 H Est GFR ( Amer) 2 L Est GFR (Non-Af Amer) 2 L Glucose 163 H Direct Bilirubin 0.6 H Alkaline Phosphatase 154 H - Diagnostic Test Radiology reviewed: Image reviewed, Reports reviewed Discharge - Discharge Clinical Impression: Shortness of breath URI (upper respiratory infection) Qualifiers: URI type: unspecified URI Qualified Code(s): J06.9 - Acute upper respiratory infection, unspecified Condition: Stable Disposition: HOME, SELF-CARE Additional Instructions: SHORTNESS OF BREATH OR DYSPNEA: You were evaluated for shortness of breath, or dyspnea. Dyspnea has many causes, and some are more serious than others. Sometimes it's impossible to diagnose the cause of dyspnea with the tests that are available on an emergency basis. Based on our evaluation today, you do not need hospitalization now. We found no evidence of pneumonia, collapsed lung, blood clots in the lung, tumors, or heart failure. Causes of non-specific dyspnea can include asthma or bronchospasm, hyperventilation, emotional distress, heart disease, emphysema, fibrosis of the lung, and stiffness of the chest wall. In healthy individuals with a single episode, it's sometimes reasonable to do nothing but wait to see if the problem occurs again. Additional tests used to evaluate dyspnea can include cardiac stress testing, echocardiography, pulmonary function testing, CAT scan of the chest, bronchoscopy or pulmonary biopsy. Return if shortness of breath persists or worsens, or if you develop chest pain, fever, cough, confusion, or fainting. UPPER RESPIRATORY ILLNESS: You have a viral infection of the respiratory passages -- a "cold." This common infection causes nasal congestion, drainage, and often sore throat and cough. It is highly contagious. The disease usually lasts about 10 to 14 days. There is no "cure" for the viral infection -- it must run its course. If there is a complication, such as bacterial infection in the nose, sinuses, middle ear, or bronchial tubes, antibiotics may be required. The antibiotics won't affect the virus. Drink plenty of fluids. A humidifier may help. An expectorant medication or decongestant may make you more comfortable. Use acetaminophen or ibuprofen for fever or aches. See the doctor if fever persists over two days, if there is any significant worsening of your symptoms, or if you simply fail to improve as expected. USE OF ACETAMINOPHEN (Tylenol): Acetaminophen may be taken for pain relief or fever control. It's much safer than aspirin, offering a wider range of "safe" dosages. It is safe during . Some brand names are Tylenol, Panadol, Datril, Anacin 3, Tempra, and Liquiprin. Acetaminophen can be repeated every four hours. The following are maximum recommended dosages: >89 pounds or adults 650 mg to 900 mg Acetaminophen can be repeated every four hours. Maximum dose not to exceed 4000 mg a day. FOLLOW-UP CARE: If you have been referred to a physician for follow-up care, call the physicians office for an appointment as you were instructed or within the next two days. If you experience worsening or a significant change in your symptoms, notify the physician immediately or return to the Emergency Department at any time for re-evaluation. Referrals: Deandra JANE MD [ACTIVE STAFF] - Follow up as needed
[2018-02-14 17:55] LABS: ALANINE AMINOTRANSFERASE 22 U/L (9-52); ALBUMIN 3.7 g/dL (3.5-5.0); ALKALINE PHOSPHATASE 154 U/L (38-126); ANION GAP 17 (5-19); ASPARTATE AMINO TRANSFERASE 20 U/L (14-36); BILIRUBIN,DIRECT 0.6 mg/dL (0.0-0.4); BILIRUBIN,TOTAL 0.6 mg/dL (0.2-1.3); BLOOD UREA NITROGEN 79 mg/dL (7-20); CALCIUM 9.7 mg/dL (8.4-10.2); CARBON DIOXIDE 27 mmol/L (22-30); CHLORIDE 95 mmol/L (98-107); GLUCOSE 163 mg/dL (75-110); POTASSIUM 3.3 mmol/L (3.6-5.0); SODIUM 139.2 mmol/L (137-145)
--- NOTE | 2018-02-14 18:01 | RADIOLOGY REPORT (SQ) ---
EXAM DESCRIPTION: CHEST 2 VIEWS COMPLETED DATE/TIME: 02/14/2018 5:36 pm REASON FOR STUDY: Short of breath, chronic renal failure on PD COMPARISON: 12/20/2017 EXAM PARAMETERS: NUMBER OF VIEWS: two views TECHNIQUE: Digital Frontal and Lateral radiographic views of the chest acquired. RADIATION DOSE: NA LIMITATIONS: none FINDINGS: LUNGS AND PLEURA: There is improved bilateral heterogeneous pulmonary opacity with persist ent prominence of the pulmonary vasculature. MEDIASTINUM AND HILAR STRUCTURES: No masses or contour abnormalities. HEART AND VASCULAR STRUCTURES: Unchanged cardiomegaly. BONES: No acute findings. HARDWARE: None in the chest. OTHER: No other significant finding. IMPRESSION: Cardiomegaly and pulmonary vascular prominence without overt pulmonary edema. TECHNICAL DOCUMENTATION: JOB ID: [id number] [employer]- All Rights Reserved Reading location - IP/workstation name: [email or web address]
[2018-02-14 19:13] VITALS: BP 173/124
== END 2018-02-14 19:13 | disposition home or self-care (01) ==
LOC: ER 16:11
DX: J06.9 Acute upper respiratory infection, unspecified (principal); R06.02 Shortness of breath; I50.9 Heart failure, unspecified; E11.22 Type 2 diabetes mellitus with diabetic chronic kidney disease; I13.2 Hypertensive heart and chronic kidney disease with heart failure and with stage 5 chronic kidney disease, or end stage renal disease; N18.6 End stage renal disease; E78.00 Pure hypercholesterolemia, unspecified; Z99.2 Dependence on renal dialysis; Z88.6 Allergy status to analgesic agent
CPT/HCPCS: 36415; 71046; 80053; 85025; 99285

== ENCOUNTER → 2018-02-27 | Outpatient (CLI) | payer MEDICARE, MEDICAID ==
[2018-02-27 14:12] LABS: HEMATOCRIT 28.3 % (36.0-47.0); MEAN CORPUSCULAR HEMOGLOBIN 24.8 pg (27.0-33.4); MEAN CORPUSCULAR HGB CONC 31.8 g/dL (32.0-36.0); MEAN CORPUSCULAR VOLUME 78 fl (80-97); PLATELET COUNT 272 10^3/uL (150-450); RED BLOOD COUNT 3.63 10^6/uL (3.72-5.28); RED CELL DISTRIBUTION WIDTH 18.3 % (11.5-14.0); WHITE BLOOD COUNT 9.6 10^3/uL (4.0-10.5)
== END ==
LOC: OD 13:41
PROVIDERS: ATTEND Internal Medicine Nephrology
DX: N18.9 Chronic kidney disease, unspecified (principal); D63.1 Anemia in chronic kidney disease
CPT/HCPCS: 36415; 85027

== ENCOUNTER → 2018-03-26 | Outpatient (CLI) | payer MEDICARE, MEDICAID ==
--- NOTE | 2018-03-26 12:04 | RADIOLOGY REPORT (SQ) ---
EXAM DESCRIPTION: CHEST 2 VIEWS COMPLETED DATE/TIME: 03/26/2018 11:48 am REASON FOR STUDY: COUGH (R05) COMPARISON: Chest films 02/14/2018, 12/20/2017 EXAM PARAMETERS: NUMBER OF VIEWS: two views TECHNIQUE: Digital Frontal and Lateral radiographic views of the chest acquired. RADIATION DOSE: NA LIMITATIONS: none FINDINGS: LUNGS AND PLEURA: No opacities, masses or pneumothorax. No pleural effusion. MEDIASTINUM AND HILAR STRUCTURES: No masses or contour abnormalities. HEART AND VASCULAR STRUCTURES: Stable marked cardiomegaly BONES: No acute findings. HARDWARE: None in the chest. OTHER: No other significant finding. IMPRESSION: Marked cardiomegaly. No acute infiltrates TECHNICAL DOCUMENTATION: JOB ID: [id number] [employer]- All Rights Reserved Reading location - IP/workstation name: [email or web address]
== END ==
LOC: RAD 11:29
PROVIDERS: ATTEND Nurse Practitioner Family
DX: I51.7 Cardiomegaly (principal); R05 Cough
CPT/HCPCS: 71046

== ENCOUNTER 2018-04-02 13:02 | Inpatient (IN) | payer MEDICARE, MEDICAID ==
--- NOTE | 2018-04-02 13:57 | ER Document Report ---
ED Medical Screen (RME) - General Chief Complaint: Shortness Of Breath Stated Complaint: SHORTNESS OF BREATH Time Seen by Provider: 04/02/18 13:53 Primary Care Provider: Deandra JANE MD [Primary Care Provider] - Follow up as needed Notes: Chief complaint: Shortness of breath History of complain:( obtained from----patient) 52 years old female with a history of hypertension diabetes, on peritoneal dialysis presents today with progressive increasing shortness of breath for the last 3-4 days. Having on and off chest discomfort. No fever chills or other constitutional symptoms. States that she is not on oxygen at home. PHYSICAL EXAMINATION: GENERAL: Morbidly obese, on oxygen 2 L now. Seems to be having difficulty in breathing. HEAD: NECK: Normal range of motion, supple without lymphadenopathy LUNGS: Distant breath sounds to auscultation. HEART: Regular rate and rhythm without murmurs A NEUROLOGICAL: Alert and oriented x3 Dictation was performed using [employer] voice recognition software TRAVEL OUTSIDE OF THE [place] IN LAST 30 DAYS: No - Related Data Allergies/Adverse Reactions: oxycodone HCl [From Percocet] Allergy (Verified 04/02/18 13:05) Nausea prochlorperazine edisylate [From Compazine] Allergy (Verified 04/02/18 13:05) Hallucinations propoxyphene napsylate [From Darvocet-N 100] Allergy (Verified 04/02/18 13:05) Hallucinations Past Medical History - Social History Family history: Reviewed & Not Pertinent - Past Medical History Cardiac Medical History: Reports: Hx Congestive Heart Failure, Hx Hypercholesterolemia, Hx Hypertension Denies: Hx Coronary Artery Disease, Hx Heart Attack Pulmonary Medical History: Reports: Hx Asthma, Hx Sleep Apnea Denies: Hx Bronchitis, Hx COPD, Hx Pneumonia Neurological Medical History: Denies: Hx Cerebrovascular Accident, Hx Seizures Endocrine Medical History: Reports: Hx Diabetes Mellitus Type 2 Renal/ Medical History: Reports: Hx End Stage Renal Disease - Peritoneal dialysis, Hx Kidney Stones, Hx Peritoneal Dialysis GI Medical History: Reports: Hx Gastroesophageal Reflux Disease Musculoskeltal Medical History: Denies Hx Arthritis Psychiatric Medical History: Denies: Hx Depression Past Surgical History: Reports: Hx Abdominal Surgery - peritoneal dialysis fistula, Hx Hysterectomy, Hx Tubal Ligation, Other - Peritoneal dialysis catheter placement - Immunizations Immunizations up to date: No Hx Diphtheria, Pertussis, Tetanus Vaccination: Yes History of Influenza Vaccine for 11/2016 - 04/2017 Season: Yes Influenza Administration Date for 11/2016 - 04/2017 Season: 11/18/17 Physical Exam - Vital signs Vitals: Temp Pulse Resp BP Pulse Ox 97.8 F 78 19 184/95 H 95 04/02/18 13:09 04/02/18 13:09 04/02/18 13:09 04/02/18 13:09 04/02/18 13:09 Course - Vital Signs Vital signs: Temp Pulse Resp BP Pulse Ox 97.8 F 78 19 184/95 H 95 04/02/18 13:09 04/02/18 13:09 04/02/18 13:09 04/02/18 13:09 04/02/18 13:09 Doctor's Discharge - Discharge Referrals: Deandra JANE MD [Primary Care Provider] - Follow up as needed
[2018-04-02 14:32] LABS: ABSOLUTE BASOPHILS # (AUTO) 0.1 10^3/uL (0.0-0.2); ABSOLUTE EOSINOPHILS # (AUTO) 0.1 10^3/uL (0.0-0.6); ABSOLUTE LYMPHOCYTES (AUTO) 0.9 10^3/uL (0.5-4.7); ABSOLUTE MONOCYTES (AUTO) 0.7 10^3/uL (0.1-1.4); ABSOLUTE NEUT (AUTO) 12.3 10^3/uL (1.7-8.2); BASOPHILS % (AUTO) 0.9 % (0-2); EOSINOPHILS % (AUTO) 0.7 % (0-6); HEMATOCRIT 28.1 % (36.0-47.0); HEMOGLOBIN 8.9 g/dL (12.0-15.5); LYMPHOCYTES % (AUTO) 6.3 % (13-45); MEAN CORPUSCULAR HGB CONC 31.6 g/dL (32.0-36.0); MEAN CORPUSCULAR VOLUME 79 fl (80-97); MONOCYTES % (AUTO) 5.1 % (3-13); PLATELET COUNT 233 10^3/uL (150-450); RED BLOOD COUNT 3.56 10^6/uL (3.72-5.28); RED CELL DISTRIBUTION WIDTH 19.8 % (11.5-14.0); TOTAL CELLS COUNTED % (AUTO) 100 %; WHITE BLOOD COUNT 14.1 10^3/uL (4.0-10.5)
[2018-04-02 14:40] LABS: ALANINE AMINOTRANSFERASE 26 U/L (9-52); ALBUMIN 4.1 g/dL (3.5-5.0); ALKALINE PHOSPHATASE 160 U/L (38-126); ASPARTATE AMINO TRANSFERASE 33 U/L (14-36); BILIRUBIN,DIRECT 0.8 mg/dL (0.0-0.4); BILIRUBIN,TOTAL 0.8 mg/dL (0.2-1.3); BLOOD UREA NITROGEN 96 mg/dL (7-20); CALCIUM 9.7 mg/dL (8.4-10.2); CARBON DIOXIDE 26 mmol/L (22-30); CHLORIDE 94 mmol/L (98-107); CREATINE KINASE 105 U/L (30-135); GLUCOSE 280 mg/dL (75-110); TOTAL PROTEIN 7.7 g/dL (6.3-8.2)
[2018-04-02 14:53] LABS: CREATINE KINASE MB 2.18 ng/mL (<4.55)
[2018-04-02 14:54] LABS: ANION GAP 19 (5-19); POTASSIUM 3.6 mmol/L (3.6-5.0); SODIUM 138.5 mmol/L (137-145); TROPONIN I 0.194 ng/mL
--- NOTE | 2018-04-02 15:06 | ER Document Report ---
ED General - General Chief Complaint: Shortness Of Breath Stated Complaint: SHORTNESS OF BREATH Time Seen by Provider: 04/02/18 13:53 Primary Care Provider: Deandra JANE MD [Primary Care Provider] - Follow up as needed Notes: Patient is a 52-year-old female with end-stage renal disease on peritoneal dialysis, and CHF that presents to the emergency department for chief complaint of shortness of breath and dyspnea on exertion. Patient states over the last 3- 4 days she is been have worsening symptoms, noticed that her breathing has been heavier, and feeling more short of breath in addition to swelling in her legs. She states that she "may have missed a few dialysis treatments." She does not recall which day she missed. She denies noting any fevers, chills, night sweats, chest pain, abdominal pain. Patient reports that she does not make any urine. Past Medical History: End-stage renal disease on peritoneal dialysis, CHF, hypertension Past Surgical History: Partial hysterectomy, tubal ligation, dialysis port placement Social History: Denies tobacco, alcohol or drug use. Family History: Reviewed and noncontributory for presenting illness Allergies: Reviewed, see documented allergy list. REVIEW OF SYSTEMS: Other than noted above, the 12 point review of systems was reviewed with the patient and were negative, all pertinent findings are included in the HPI. PHYSICAL EXAMINATION: Vital signs reviewed, nursing noted reviewed. GENERAL: Morbidly obese female, in mild to moderate respiratory distress, increased work of breathing, shallow breathing. HEAD: Atraumatic, normocephalic. EYES: Eyes appear normal, extraocular movements intact, sclera anicteric, conjunctiva are normal. ENT: nares patent, oropharynx clear without exudates. Moist mucous membranes. NECK: Normal range of motion, supple without lymphadenopathy LUNGS: Diminished lung sounds at the bases bilaterally, some crackles noted as well., Mild to moderate respiratory distress. HEART: Regular rate and rhythm without murmurs ABDOMEN: Soft, nontender, normoactive bowel sounds. No rebound, guarding, or rigidity. No masses appreciated. EXTREMITIES: Nontender, good range of motion, 3+ pitting edema to the proximal tibias bilaterally. NEUROLOGICAL: No focal neurological deficits. Moves all extremities spontane ously Motor and sensory grossly intact on exam. PSYCH: Flat affect, somnolent at times. SKIN: Warm, Dry, normal turgor, no rashes or lesions noted on exposed skin TRAVEL OUTSIDE OF THE [place] IN LAST 30 DAYS: No - Related Data Allergies/Adverse Reactions: oxycodone HCl [From Percocet] Allergy (Verified 04/02/18 13:05) Nausea prochlorperazine edisylate [From Compazine] Allergy (Verified 04/02/18 13:05) Hallucinations propoxyphene napsylate [From Darvocet-N 100] Allergy (Verified 04/02/18 13:05) Hallucinations Past Medical History - Social History Smoking Status: Never Smoker Family History: Reviewed & Not Pertinent, DM, Hypertension Patient has suicidal ideation: No Patient has homicidal ideation: No - Past Medical History Cardiac Medical History: Reports: Hx Congestive Heart Failure, Hx Hypercholesterolemia, Hx Hypertension Denies: Hx Coronary Artery Disease, Hx Heart Attack Pulmonary Medical History: Reports: Hx Asthma, Hx Sleep Apnea Denies: Hx Bronchitis, Hx COPD, Hx Pneumonia Neurological Medical History: Denies: Hx Cerebrovascular Accident, Hx Seizures Endocrine Medical History: Reports: Hx Diabetes Mellitus Type 2 Renal/ Medical History: Reports: Hx End Stage Renal Disease - Peritoneal dialysis, Hx Kidney Stones, Hx Peritoneal Dialysis GI Medical History: Reports: Hx Gastroesophageal Reflux Disease Musculoskeletal Medical History: Denies Hx Arthritis Psychiatric Medical History: Denies: Hx Depression Past Surgical History: Reports: Hx Abdominal Surgery - peritoneal dialysis fistula, Hx Hysterectomy, Hx Tubal Ligation, Other - Peritoneal dialysis catheter placement - Immunizations Immunizations up to date: No Hx Diphtheria, Pertussis, Tetanus Vaccination: Yes Hx Pneumococcal Vaccination: 11/18/16 Physical Exam - Vital signs Vitals: Temp Pulse Resp BP Pulse Ox 97.8 F 78 19 184/95 H 95 04/02/18 13:09 04/02/18 13:09 04/02/18 13:09 04/02/18 13:09 04/02/18 13:09 Course - Re-evaluation Re-evalutation: Patient seen and examined vital signs reviewed. Laboratory data and imaging were ordered as appropriate for the patient's presenting symptoms and complaint, with consideration of any critical or life threatening conditions that may be associated with their obtained history and exam as noted above. Patient was treated with BiPAP, and started on her peritoneal dialysis, she does not make urine, therefore Lasix was not ordered. Results were reviewed when available and demonstrated volume overload clinically, and her chest x-ray did demonstrate some blunting of the costophrenic angles, poor inspiratory effort on chest x-ray as well, her BNP was elevated from her baseline, BUN and creatinine, are around her baseline for peritoneal dialysis patient, no hyperkalemia. The patient was re-evaluated and was improved after being placed on BiPAP, dis cussed case with the occupational therapy teacher who called for orders to start peritoneal dialysis. Evaluation was most consistent with acute on chronic heart failure, volume overload as a result of noncompliance with dialysis. Results were discussed with the patient at this point after careful consideration I feel that that patient should be admitted to the hospital. This was discussed with the patient that it is in the best interest for their care to be admitted for further evaluation and management. Patient agreed with this plan of care. A call was placed to the admitted physician, [] who graciously accepted the patient onto their service. *Note is created using voice recognition software and may contain spelling, syntax or grammatical errors. Laboratory 04/02/18 04/02/18 04/02/18 14:00 14:00 14:00 WBC 14.1 H RBC 3.56 L Hgb 8.9 L Hct 28.1 L MCV 79 L MCH 25.0 L MCHC 31.6 L RDW 19.8 H Plt Count 233 Seg Neutrophils % 87.0 H Lymphocytes % 6.3 L Monocytes % 5.1 Eosinophils % 0.7 Basophils % 0.9 Absolute Neutrophils 12.3 H Absolute Lymphocytes 0.9 Absolute Monocytes 0.7 Absolute Eosinophils 0.1 Absolute Basophils 0.1 Sodium 138.5 Potassium 3.6 Chloride 94 L Carbon Dioxide 26 Anion Gap 19 BUN 96 H Creatinine 17.42 H Est GFR ( Amer) 3 L Est GFR (Non-Af Amer) 2 L Glucose 280 H Calcium 9.7 Total Bilirubin 0.8 Direct Bilirubin 0.8 H Neonat Total Bilirubin Not Reportable Neonat Direct Bilirubin Not Reportable Neonat Indirect Bili Not Reportable AST 33 ALT 26 Alkaline Phosphatase 160 H Creatine Kinase 105 CK-MB (CK-2) 2.18 Troponin I 0.194 NT-Pro-B Natriuret Pep 55513 H Total Protein 7.7 Albumin 4.1 Chest X-Ray 04/02/18 13:54 IMPRESSION: Cardiomegaly without acute abnormality of the lungs in low volume AP examination. - Vital Signs Vital signs: Temp Pulse Resp BP Pulse Ox 97.8 F 78 19 184/95 H 95 04/02/18 13:09 04/02/18 13:09 04/02/18 13:09 04/02/18 13:09 04/02/18 13:09 - Laboratory Result Diagrams: 04/02/18 14:00 04/02/18 14:00 Laboratory results interpreted by me: 04/02/18 04/02/18 04/02/18 14:00 14:00 14:00 WBC 14.1 H RBC 3.56 L Hgb 8.9 L Hct 28.1 L MCV 79 L MCH 25.0 L MCHC 31.6 L RDW 19.8 H Seg Neutrophils % 87.0 H Lymphocytes % 6.3 L Absolute Neutrophils 12.3 H Chloride 94 L BUN 96 H Creatinine 17.42 H Est GFR ( Amer) 3 L Est GFR (Non-Af Amer) 2 L Glucose 280 H Direct Bilirubin 0.8 H Alkaline Phosphatase 160 H NT-Pro-B Natriuret Pep [id number] H - EKG Interpretation by Me Additional EKG results interpreted by me: EKG demonstrates sinus rhythm with a ventricular rate of 75 bpm, left axis deviation, QTC prolonged at 523 ms, occasional PVC. No ST changes noted. This is compared with the prior EKG from 12/20/2017, without significant change. Discharge - Discharge Clinical Impression: Acute on chronic heart failure, Volume overload Condition: Stable Disposition: ADMITTED INPATIENT Admitting Provider: Hospitalist - Dr. Mullins Unit Admitted: IMCU Referrals: Deandra JANE MD [Primary Care Provider] - Follow up as needed
--- NOTE | 2018-04-02 15:23 | RADIOLOGY REPORT (SQ) ---
EXAM DESCRIPTION: CHEST SINGLE VIEW COMPLETED DATE/TIME: 04/02/2018 3:06 pm REASON FOR STUDY: Shortness of breath COMPARISON: 03/26/2018 EXAM PARAMETERS: NUMBER OF VIEWS: One view. TECHNIQUE: Single frontal radiographic view of the chest acquired. RADIATION DOSE: NA LIMITATIONS: None. FINDINGS: LUNGS AND PLEURA: Low volume AP examination without acute airspace opacity. MEDIASTINUM AND HILAR STRUCTURES: No masses. Contour normal. HEART AND VASCULAR STRUCTURES: Cardiomegaly. BONES: No acute findings. HARDWARE: None in the chest. OTHER: No other significant finding. IMPRESSION: Cardiomegaly without acute abnormality of the lungs in low volume AP examination. TECHNICAL DOCUMENTATION: JOB ID: [id number] [employer]- All Rights Reserved Reading location - IP/workstation name: [email or web address]
--- NOTE | 2018-04-02 16:22 | PDOC H&P ---
History of Present Illness Admission Date/PCP: 04/02/18 16:00 Deandra JANE MD History of Present Illness: JASPREET STAFFORD is a 52 year old female with a history of ESRD on peritoneal dial ysis as well as grade 3-4 diastolic dysfunction and insulin-dependent diabetes mellitus who presents with shortness of breath, onset yesterday. She has missed a couple of her peritoneal dialysis treatments and said she noticed some swelling in the shortness of breath starting yesterday. She has had this before, where she would miss dialysis treatments and then get fluid overloaded. She was short of breath and was put on BiPAP in the ER. Her gospel singer Dr. Moran was contacted and Dr. Moran has written some peritoneal dialysis orders for her. She is being admitted for diuresis through peritoneal dialysis as well as respiratory support. Past Medical History Cardiac Medical History: Reports: Congestive Heart Failure, Hyperlipidema, Hypertension Denies: Coronary Artery Disease, Myocardial Infarction Pulmonary Medical History: Reports: Asthma, Sleep Apnea Denies: Bronchitis, Chronic Obstructive Pulmonary Disease (COPD), Pneumonia Neurological Medical History: Denies: Seizures Endocrine Medical History: Reports: Diabetes Mellitus Type 2 Renal/ Medical History: Reports: End Stage Renal Disease - Peritoneal dialysis GI Medical History: Reports: Gastroesophageal Reflux Disease Musculoskeltal Medical History: Denies: Arthritis Psychiatric Medical History: Denies: Depression Hematology: Denies: Anemia Past Surgical History Past Surgical History: Reports: Hysterectomy, Tubal Ligation, Other - Peritoneal dialysis catheter placement Social History Smoking Status: Never Smoker Frequency of Alcohol Use: None Hx Recreational Drug Use: No Drugs: None Hx Prescription Drug Abuse: No Family History Family History: Reviewed & Not Pertinent, DM, Hypertension Parental Family History Reviewed: Yes - Noncontributory Children Family History Reviewed: NA - Noncontributory Sibling(s) Family History Reviewed.: NA - Noncontributory Medication/Allergy Home Medications: Carvedilol [Coreg 25 mg Tablet] 25 mg PO Q12 04/29/17 Hydralazine HCl 100 mg PO Q8 04/29/17 Insulin Glargine,Hum.rec.anlog [Toulucila Solostar] 50 units SQ QHS 04/29/17 Pregabalin [Lyrica 75 mg Capsule] 75 mg PO Q12 04/29/17 Calcium Acetate [Phoslo 667 mg Capsule] 1,334 mg PO MEALS 05/14/18 Potassium Chloride [Klor-Con 10 Meq Capsule ER] 20 meq PO DAILY 07/01/17 Aspirin [Aspirin EC] 81 mg PO DAILY 11/11/17 Insulin Lispro [Humalog Kwikpen U-100] 6 unit SQ MEALS 11/11/17 Calcitriol [Rocaltrol 0.25 mcg Capsule] 0.25 mcg PO DAILY 12/20/17 Cinacalcet HCl [Sensipar 90 mg Tablet] 90 mg PO DAILY 12/20/17 Cephalexin Monohydrate [Keflex 500 mg Capsule] 500 mg PO BID 5 Days capsule 02/02/18 Allergies/Adverse Reactions: oxycodone HCl [From Percocet] Allergy (Verified 04/02/18 13:05) Nausea prochlorperazine edisylate [From Compazine] Allergy (Verified 04/02/18 13:05) Hallucinations propoxyphene napsylate [From Darvocet-N 100] Allergy (Verified 04/02/18 13:05) Hallucinations Review of Systems All systems: reviewed and no additional remarkable complaints except as stated - 10 point review of systems conducted with the patient and was negative except as noted above Physical Exam Vital Signs: Temp Pulse Resp BP Pulse Ox 97.8 F 78 27 H 184/95 H 100 04/02/18 13:09 04/02/18 13:09 04/02/18 15:49 04/02/18 13:09 04/02/18 15:49 Intake & Output 04/01/18 04/02/18 04/03/18 06:59 06:59 06:59 Weight 176.7 kg General appearance: PRESENT: cooperative, disheveled, mild distress, morbidly obese Head exam: PRESENT: atraumatic, normocephalic Eye exam: PRESENT: EOMI, PERRLA. ABSENT: conjunctival injection, nystagmus, scleral icterus Ear exam: PRESENT: normal external ear exam Mouth exam: PRESENT: moist, neck supple Throat exam: ABSENT: post pharyngeal erythema Neck exam: PRESENT: full ROM. ABSENT: carotid bruit, JVD, lymphadenopathy, meningismus, tenderness, thyromegaly Respiratory exam: PRESENT: crackles - Bibasilar, symmetrical. ABSENT: accessory muscle use, decreased breath sounds, prolonged expiratory phas, rhonchi, tachypnea, unlabored, wheezes Cardiovascular exam: PRESENT: RRR, +S1, +S2 Vascular exam: PRESENT: normal capillary refill GI/Abdominal exam: PRESENT: distended, normal bowel sounds, soft. ABSENT: guarding, rebound, tenderness Extremities exam: PRESENT: pedal edema, +2 edema. ABSENT: clubbing Musculoskeletal exam: PRESENT: normal inspection. ABSENT: deformity Neurological exam: PRESENT: alert, awake, oriented to person, oriented to place, oriented to time, oriented to situation, CN II-XII grossly intact. ABSENT: motor sensory deficit Psychiatric exam: PRESENT: flat affect Skin exam: PRESENT: dry, warm Results Laboratory Results: 04/02/18 14:00 04/02/18 14:00 04/02/18 04/02/18 14:00 14:00 WBC 14.1 H RBC 3.56 L Hgb 8.9 L Hct 28.1 L MCV 79 L MCH 25.0 L MCHC 31.6 L RDW 19.8 H Plt Count 233 Seg Neutrophils % 87.0 H Lymphocytes % 6.3 L Monocytes % 5.1 Eosinophils % 0.7 Basophils % 0.9 Absolute Neutrophils 12.3 H Absolute Lymphocytes 0.9 Absolute Monocytes 0.7 Absolute Eosinophils 0.1 Absolute Basophils 0.1 Sodium 138.5 Potassium 3.6 Chloride 94 L Carbon Dioxide 26 Anion Gap 19 BUN 96 H Creatinine 17.42 H Est GFR ( Amer) 3 L Est GFR (Non-Af Amer) 2 L Glucose 280 H Calcium 9.7 Total Bilirubin 0.8 AST 33 ALT 26 Alkaline Phosphatase 160 H Total Protein 7.7 Albumin 4.1 04/02/18 04/02/18 14:00 14:00 Creatine Kinase 105 CK-MB (CK-2) 2.18 Troponin I 0.194 NT-Pro-B Natriuret Pep 21636 H Impressions: Chest X-Ray 04/02/18 13:54 IMPRESSION: Cardiomegaly without acute abnormality of the lungs in low volume AP examination. Assessment & Plan - Diagnosis (1) Acute on chronic heart failure Qualifiers: Heart failure type: diastolic Qualified Code(s): I50.33 - Acute on chronic diastolic (congestive) heart failure Is this a current diagnosis for this admission?: Yes Plan: As a result of volume overload from missing her dialysis. We will continue her home medications and diurese her via dialysis. (2) ESRD (end stage renal disease) on dialysis Is this a current diagnosis for this admission?: Yes Plan: Dr. Moran has been consulted and has written orders for her peritoneal dialysis (3) Morbid obesity with BMI of 50.0-59.9, adult Is this a current diagnosis for this admission?: Yes Plan: Encouraged lifestyle modification - Time Time Spent: 50 to 70 Minutes - Inpatient Certification Based on my medical assessment, after consideration of the patient's comorbidities, presenting symptoms, or acuity I expect that the services needed warrant INPATIENT care.: Yes I certify that my determination is in accordance with my understanding of Medicare's requirements for reasonable and necessary INPATIENT services [42 CFR 412.3e].: Yes Medical Necessity: Need Close Monitoring Due to Risk of Patient Decompensation, Risk of Complication if Not Cared For in Hospital
[2018-04-02] MEDS ORDERED: INSULIN LISPRO 6 UNIT SQ SCH (17:00)
[2018-04-02] MEDS: CALCIUM ACETATE 667 MG CAPSULE PO SCH (18:33)
[2018-04-02] MEDS: INSULIN LISPRO 100 UNIT/ML 3 ML VIAL SUBCUT SCH ×2 (18:33→21:53)
[2018-04-02] MEDS ORDERED: GLUCAGON,HUMAN RECOMB 1 MG INJ IM PRN (19:00)
[2018-04-02] MEDS ORDERED: DEXTROSE 50%-WATER SYRINGE 25 GM/50 ML DOSE IV PRN (19:00)
[2018-04-02] MEDS ORDERED: DEXTROSE 40% GEL 15 GM TUBE X 2 PO PRN (19:00)
[2018-04-02] MEDS ORDERED: DEXTROSE 40% GEL 15 GM TUBE PO PRN (19:00)
[2018-04-02] MEDS ORDERED: DEXTROSE 50%-WATER SYRINGE 12.5 GM/25 ML DOSE IV PRN (19:00)
[2018-04-02] MEDS: CARVEDILOL 12.5 MG TABLET PO SCH (21:52)
[2018-04-02] MEDS: HEPARIN SOD (PORCINE) 5,000 UNIT/ML 1 ML SYRINGE SUBCUT SCH (21:52)
[2018-04-02] MEDS: HYDRALAZINE HCL 50 MG TABLET PO SCH (21:52)
[2018-04-02] MEDS: INSULIN GLARGINE,HUM.REC.ANLOG 300 UNIT/3 ML INSULN.PEN SUBCUT SCH (21:53)
[2018-04-02] MEDS ORDERED: INSULIN GLARGINE HUM REC ANLOG 50 UNIT SQ SCH (22:00)
[2018-04-02] MEDS ORDERED: (PENDING PHARMACY ID) (Hydralazine Hcl [Hydralazine Hcl] 100 MG) PO SCH (22:00)
--- NOTE | 2018-04-02 22:05 | PDOC CONSULTATION ---
Consultation Consult Date: 04/02/18 Attending physician:: MIKE POE Consult reason:: I was asked to see the patient for pulmonary congestion the patient with ESRD on peritoneal dialysis. History of Present Illness Admission Date/PCP: 04/02/18 16:00 Deandra JANE MD History of Present Illness: JASPREET STAFFORD is a 52 year old female known to me with history of end-stage renal disease on peritoneal dialysis, diabetic nephropathy and hypertensive nephrosclerosis, diabetes mellitus type 2, hypertension, asthma, and cirrhosis who was brought to the emergency room via EMS from [facility] today. Patient relates that she has been having chronic cough for the last 4 months. This was treated by Isela Angeles and antibiotics per primary care physician. She is also being seen by warehouse order selector, Dr. Brock who prescribed Prilosec and a couple of new inhalers. She saw Dr. Brock 6 days ago last Saturday and has prescribed nebulizer treatments with albuterol. Last week Saturday she also went to the urgent care for shortness of breath for which she was given prednisone which she has finished today and Keflex 250 mg p.o. 3 times daily. Yesterday she said she just lay around all day and she noticed that her breathing is actually worse associated with wheezing. She did not do her to midday exchanges yesterday. Today at [facility] she was noted to be short of breath and so the nurses called EMS and she was brought here in the emergency room. Patient was initially placed on BiPAP. When I was seeing her she is already on nasal cannula. He said she has dry cough. She denies any fever, chills, nausea, vomiting, abdominal pain or diarrhea. She denies any problems with peritoneal dialysis and denies any cloudy PD fluid of effluent. Past Medical History Cardiac Medical History: Reports: CHF-Diastolic, Hyperlipidemia, Hypertension- primary Pulmonary Medical History: Reports: Asthma, Pneumonia, Sleep Apnea Endocrine Medical History: Reports: Diabetes Mellitus Type 2 Complications of Diabetes: Reports: Nephropathy Renal/ Medical History: Reports: End Stage Renal Disease - Peritoneal dialysis, Hypokalemia, Hyperphosphatemia, Secondary Hyperparathyroidism GI Medical History: Reports: Cirrhosis - Scheduled for liver biopsy in [place] by Dr. Dennis on 04/14/2018., Gastroesophageal Reflux Disease Psychiatric Medical History: Reports: Depression Hematology Medical History: Reports Anemia of Chronic Kidney Disease Past Surgical History Past Surgical History: Reports: Dialysis Access Surgery PD, Hysterectomy, Tubal Ligation Social History Information Source: Patient Lives with: Alone Smoking Status: Never Smoker Frequency of Alcohol Use: None Hx Recreational Drug Use: No Drugs: None Hx Prescription Drug Abuse: No Family History Family History: Chronic Kidney Disease - Father, DM - Father, Hypertension - Father Parental Family History Reviewed: Yes Children Family History Reviewed: NA Sibling(s) Family History Reviewed.: Yes Medication/Allergy Home Medications: Carvedilol [Coreg 25 mg Tablet] 25 mg PO Q12 04/29/17 Hydralazine HCl 100 mg PO Q8 04/29/17 Pregabalin [Lyrica 75 mg Capsule] 75 mg PO Q12 04/29/17 Calcitriol [Rocaltrol] 0.25 mcg PO DAILY 04/02/18 Calcium Acetate [Phoslo 667 Mg Capsule] 1,334 mg PO TID 04/02/18 Cinacalcet HCl [Sensipar 90 mg Tablet] 90 mg PO DAILY 04/02/18 Fluticasone/Salmeterol [Advair 250-50 Diskus 14 Dose/Diskus] 2 puff IH BID 04/02/18 Insulin Glargine,Hum.rec.anlog [Toujeo Solostar] 50 units SQ QHS 04/02/18 Insulin Lispro [Humalog Kwikpen U-100] 6 unit SQ AC 04/02/18 Omeprazole 40 mg PO DAILY 04/02/18 Potassium Chloride [K-Tab ER] 20 meq PO DAILY 04/02/18 Sevelamer HCl [Renagel 800 mg Tablet] 3,200 mg PO QID 04/02/18 Allergies/Adverse Reactions: oxycodone HCl [From Percocet] Allergy (Verified 04/02/18 13:05) Nausea prochlorperazine edisylate [From Compazine] Allergy (Verified 04/02/18 13:05) Hallucinations propoxyphene napsylate [From Darvocet-N 100] Allergy (Verified 04/02/18 13:05) Hallucinations Review of Systems All systems: reviewed and no additional remarkable complaints except as stated Review of Systems: Constitutional: ABSENT: chills, fatigue, fever(s), headache(s), weight gain, weight loss Eyes: ABSENT: visual disturbances Ears: ABSENT: hearing changes Cardiovascular: ABSENT: chest pain, edema, orthropnea, palpitations; positive dyspnea on exertion Respiratory: ABSENT: Hemoptysis; positive cough and dyspnea Gastrointestinal: ABSENT: abdominal pain, constipation, diarrhea, hematemesis, hematochezia, nausea, vomiting Genitourinary: ABSENT: dysuria, hematuria Musculoskeletal: ABSENT: joint swelling Integumentary: ABSENT: rash, wounds Neurological: ABSENT: abnormal gait, abnormal speech, confusion, dizziness, focal weakness, numbness, syncope Psychiatric: ABSENT: anxiety, depression Endocrine: ABSENT: cold intolerance, heat intolerance, polydipsia, polyuria Hematologic/Lymphatic: ABSENT: easy bleeding, easy bruising, lymphadenopathy Physical Exam Vital Signs: Temp Pulse Resp BP Pulse Ox 97.7 F 85 18 146/77 H 100 04/02/18 20:35 04/02/18 20:35 04/02/18 20:35 04/02/18 20:35 04/02/18 20:35 Intake & Output 04/01/18 04/02/18 04/03/18 06:59 06:59 06:59 Output Total 3200 Balance -3200 Weight 174.7 kg Exam: General appearance: No acute distress, cooperative, well-developed, well- nourished Head exam: PRESENT: atraumatic, normocephalic Eye exam: PRESENT: Conjunctiva slightly pale EOMI, PERRLA. ABSENT: conjunctival injection, scleral icterus Mouth exam: PRESENT: moist, neck supple, tongue midline Neck exam: PRESENT: full ROM. ABSENT: carotid bruit, JVD, lymphadenopathy, thyromegaly Respiratory exam: PRESENT: Diminished to auscultation bilaterally. Positive expiratory wheezes ABSENT: rales, rhonchi, stridor Cardiovascular exam: PRESENT: RRR, +S1, +S2. ABSENT: systolic murmur Pulses: PRESENT: normal radial pulses, normal dorsalis pedis pulses GI/Abdominal exam: PRESENT: normal bowel sounds, soft. PD catheter in place with good exit site ABSENT: guarding, mass, tenderness Rectal exam: Deferred Extremities exam: PRESENT: full ROM. Grade 1 bilateral lower extremity edema ABSENT: calf tenderness Musculoskeletal: PRESENT: full ROM. ABSENT: deformity Neurological exam: PRESENT: alert, Awake, Oriented to person, Oriented to place, Oriented to time, reflexes normal, CN II-XII grossly intact. ABSENT: motor sensory deficit Psychiatric exam: PRESENT: appropriate affect, normal mood. ABSENT: homicidal ideation, suicidal ideation Skin exam: PRESENT: intact, dry, warm. ABSENT: rash Results Laboratory Results: 04/02/18 14:00 04/02/18 14:00 04/02/18 04/02/18 14:00 14:00 WBC 14.1 H RBC 3.56 L Hgb 8.9 L Hct 28.1 L MCV 79 L MCH 25.0 L MCHC 31.6 L RDW 19.8 H Plt Count 233 Seg Neutrophils % 87.0 H Lymphocytes % 6.3 L Monocytes % 5.1 Eosinophils % 0.7 Basophils % 0.9 Absolute Neutrophils 12.3 H Absolute Lymphocytes 0.9 Absolute Monocytes 0.7 Absolute Eosinophils 0.1 Absolute Basophils 0.1 Sodium 138.5 Potassium 3.6 Chloride 94 L Carbon Dioxide 26 Anion Gap 19 BUN 96 H Creatinine 17.42 H Est GFR ( Amer) 3 L Est GFR (Non-Af Amer) 2 L Glucose 280 H Calcium 9.7 Total Bilirubin 0.8 AST 33 ALT 26 Alkaline Phosphatase 160 H Total Protein 7.7 Albumin 4.1 04/02/18 04/02/18 04/02/18 14:00 14:00 19:13 Creatine Kinase 105 CK-MB (CK-2) 2.18 Troponin I 0.194 0.190 NT-Pro-B Natriuret Pep [id number] H Impressions: Chest X-Ray 04/02/18 13:54 IMPRESSION: Cardiomegaly without acute abnormality of the lungs in low volume AP examination. Assessment & Plan - Diagnosis (1) Pulmonary vascular congestion Is this a current diagnosis for this admission?: Yes Plan: Likely secondary to missing couple of exchanges on her peritoneal dialysis. We will do rapid exchanges while here in the hospital. (2) ESRD (end stage renal disease) on dialysis Is this a current diagnosis for this admission?: Yes Plan: We will do manual peritoneal dialysis exchanges while here in the hospital. Dialysis prescription: CAPD, 3 L fill volume, 6 exchanges to be done every 4 hours, use 4.25% solution for the first 3 exchanges and then do alternating 2.5 and 4.25% thereafter. Use 2.5% solution if systolic blood pressure is less than 110. Monitor ultrafiltration. Do daily weights and daily exercise care. (3) Asthma Qualifiers: Asthma severity: mild Asthma persistence: intermittent Asthma complication type: with acute exacerbation Qualified Code(s): J45.21 - Mild intermittent asthma with (acute) exacerbation Is this a current diagnosis for this admission?: Yes Plan: Defer to hospitalist service. (4) Hypertension Qualifiers: Hypertension type: essential hypertension Qualified Code(s): I10 - Essential (primary) hypertension Is this a current diagnosis for this admission?: Yes Plan: Resume home blood pressure medications. (5) Anemia in chronic kidney disease (CKD) Qualifiers: Chronic kidney disease stage: unspecified stage Qualified Code(s): N18.9 - Chronic kidney disease, unspecified; D63.1 - Anemia in chronic kidney disease Is this a current diagnosis for this admission?: Yes Plan: We will give Procrit as needed. - Notes Notes: Thank you very much for this consultation. - Time Time Spent: 50 to 70 Minutes
--- NOTE | 2018-04-03 00:30 | EKG REPORT ---
SEVERITY:- ABNORMAL ECG - SINUS RHYTHM VENTRICULAR PREMATURE COMPLEX NONSPECIFIC IVCD WITH LAD LEFT VENTRICULAR HYPERTROPHY : Confirmed by: Dorothea Wadsworth MD 03-Apr-2018 00:29:40
[2018-04-03 06:00] LABS: HEMATOCRIT 25.3 % (36.0-47.0); HEMOGLOBIN 8.1 g/dL (12.0-15.5); MEAN CORPUSCULAR HEMOGLOBIN 25.2 pg (27.0-33.4); MEAN CORPUSCULAR HGB CONC 31.9 g/dL (32.0-36.0); MEAN CORPUSCULAR VOLUME 79 fl (80-97); PLATELET COUNT 197 10^3/uL (150-450); RED CELL DISTRIBUTION WIDTH 19.9 % (11.5-14.0); WHITE BLOOD COUNT 11.8 10^3/uL (4.0-10.5)
[2018-04-03] MEDS: HEPARIN SOD (PORCINE) 5,000 UNIT/ML 1 ML SYRINGE SUBCUT SCH ×3 (06:01→21:03)
[2018-04-03] MEDS: HYDRALAZINE HCL 50 MG TABLET PO SCH ×3 (06:01→21:03)
[2018-04-03 06:27] LABS: ANION GAP 18 (5-19); BLOOD UREA NITROGEN 94 mg/dL (7-20); CALCIUM 9.4 mg/dL (8.4-10.2); CARBON DIOXIDE 25 mmol/L (22-30); CHLORIDE 97 mmol/L (98-107); GLUCOSE 201 mg/dL (75-110); PHOSPHORUS 8.8 mg/dL (2.5-4.5); POTASSIUM 3.1 mmol/L (3.6-5.0); SODIUM 139.7 mmol/L (137-145)
[2018-04-03] MEDS: CALCIUM ACETATE 667 MG CAPSULE PO SCH ×3 (08:22→17:06)
[2018-04-03] MEDS: INSULIN LISPRO 100 UNIT/ML 3 ML VIAL SUBCUT SCH ×7 (08:22→21:46)
[2018-04-03] MEDS ORDERED: POTASSIUM CHLORIDE 20 MEQ/15 ML UDCUP PO ONE (09:00)
[2018-04-03] MEDS: CARVEDILOL 12.5 MG TABLET PO SCH ×2 (09:13→21:03)
[2018-04-03] MEDS: CALCITRIOL 0.25 MCG CAPSULE PO SCH (09:19)
[2018-04-03] MEDS: ASPIRIN 81 MG TABLET, ENT COATED PO SCH (09:19)
[2018-04-03] MEDS: CINACALCET HCL 30 MG TABLET PO SCH (09:22)
[2018-04-03] MEDS ORDERED: CINACALCET HCL 90 MG PO SCH (10:00)
[2018-04-03] MEDS ORDERED: POTASSIUM CHLORIDE 10 MEQ CAPSULE.ER PO SCH (10:00)
[2018-04-03] MEDS: LOPERAMIDE HCL 2 MG CAPSULE PO PRN (16:11)
--- NOTE | 2018-04-03 16:27 | PDOC PROGRESS REPORT ---
Subjective Progress Note for:: 04/03/18 Subjective:: She is feeling better this morning. She is off BiPAP and on room air at rest. She still gets a little short of breath when she exerts herself. She got a little over 3 L of fluid off with her peritoneal dialysis last night. Reason For Visit: ACUTE DISTOLIC CHF Physical Exam Vital Signs: Temp Pulse Resp BP Pulse Ox 98.0 F 71 16 134/82 H 100 04/03/18 15:22 04/03/18 15:22 04/03/18 15:22 04/03/18 15:22 04/03/18 15:22 Intake & Output 04/02/18 04/03/18 04/04/18 06:59 06:59 06:59 Intake Total 6000 6375 Output Total 9100 6500 Balance -3100 -125 Weight 164.6 kg General appearance: PRESENT: no acute distress, cooperative, disheveled, morbidly obese Respiratory exam: PRESENT: decreased breath sounds, symmetrical, unlabored. ABSENT: accessory muscle use, crackles, prolonged expiratory phas, rhonchi, tachypnea, wheezes Cardiovascular exam: PRESENT: RRR, +S1, +S2 Vascular exam: PRESENT: normal capillary refill GI/Abdominal exam: PRESENT: normal bowel sounds, soft. ABSENT: diminished bowel sounds, distended, guarding, rebound, tenderness Extremities exam: PRESENT: pedal edema, +2 edema. ABSENT: clubbing Musculoskeletal exam: PRESENT: normal inspection. ABSENT: deformity Neurological exam: PRESENT: alert, awake, oriented to person, oriented to place, oriented to time, oriented to situation Psychiatric exam: PRESENT: appropriate affect, normal mood Skin exam: PRESENT: dry, warm Results Laboratory Results: 04/03/18 05:49 04/03/18 05:49 04/03/18 04/03/18 05:49 05:49 WBC 11.8 H RBC 3.20 L Hgb 8.1 L Hct 25.3 L MCV 79 L MCH 25.2 L MCHC 31.9 L RDW 19.9 H Plt Count 197 Sodium 139.7 Potassium 3.1 L Chloride 97 L Carbon Dioxide 25 Anion Gap 18 BUN 94 H Creatinine 17.63 H Est GFR ( Amer) 3 L Est GFR (Non-Af Amer) 2 L Glucose 201 H Calcium 9.4 Phosphorus 8.8 H Magnesium 1.7 04/02/18 04/02/18 04/02/18 14:00 14:00 19:13 Creatine Kinase 105 CK-MB (CK-2) 2.18 Troponin I 0.194 0.190 NT-Pro-B Natriuret Pep [id number] H Impressions: Chest X-Ray 04/02/18 13:54 IMPRESSION: Cardiomegaly without acute abnormality of the lungs in low volume AP examination. Assessment & Plan - Diagnosis (1) Acute on chronic heart failure Qualifiers: Heart failure type: diastolic Qualified Code(s): I50.33 - Acute on chronic diastolic (congestive) heart failure Is this a current diagnosis for this admission?: Yes Plan: As a result of volume overload from missing her dialysis. We will continue her home medications and diurese her via dialysis. (2) ESRD (end stage renal disease) on dialysis Is this a current diagnosis for this admission?: Yes Plan: Dr. Moran has been consulted and has written orders for her peritoneal dialysis. The patient says that she wants to go back to the lower concentration of PD fluid because she think she will tolerate it better. Also, the higher concentration PD fluid may be affecting her blood sugars adversely. (3) Morbid obesity with BMI of 50.0-59.9, adult Is this a current diagnosis for this admission?: Yes Plan: Encouraged lifestyle modification - Time Time Spent with patient: 25-34 minutes
--- NOTE | 2018-04-03 17:34 | PDOC PROGRESS REPORT ---
Subjective Progress Note for:: 04/03/18 Subjective:: Patient is doing better today. Her cough frequency have significantly diminished. Breathing is also improved. In terms of the peritoneal dialysis we are getting adequate ultrafiltration with current regimen. She is tolerating peritoneal dialysis well without any problems at this point. There are using 2.5% solution since she has [place] of 4.25%. This is okay as long as we are still getting adequate ultrafiltration. Her blood pressure is also been control led. Reason For Visit: ACUTE DISTOLIC CHF Physical Exam Vital Signs: Temp Pulse Resp BP Pulse Ox 97.2 F 72 16 137/81 H 99 04/03/18 17:05 04/03/18 17:05 04/03/18 17:05 04/03/18 17:05 04/03/18 17:05 Intake & Output 04/02/18 04/03/18 04/04/18 06:59 06:59 06:59 Intake Total 6000 6375 Output Total 9100 6500 Balance -3100 -125 Weight 164.6 kg Exam: General appearance: PRESENT: no acute distress, cooperative, well-developed, well-nourished Head exam: PRESENT: atraumatic, normocephalic Eye exam: PRESENT: conjunctiva pink, PERRLA. ABSENT: scleral icterus Neck exam: ABSENT: JVD Respiratory exam: PRESENT: Diminished breath sounds. ABSENT: crackles, rales, rhonchi, unlabored, wheezes Cardiovascular exam: PRESENT: Regular rate rhythm -+S1, +S2. ABSENT: diastolic murmur, systolic murmur GI/Abdominal exam: PRESENT: normal bowel sounds, soft. ABSENT: guarding, mass, tenderness Extremities exam: Grade 1 bilateral lower extremity pitting edema Neurological exam: PRESENT: alert, awake, oriented to person, place and time. Skin exam: PRESENT: dry, warm, Results Laboratory Results: 04/03/18 05:49 04/03/18 05:49 04/03/18 04/03/18 05:49 05:49 WBC 11.8 H RBC 3.20 L Hgb 8.1 L Hct 25.3 L MCV 79 L MCH 25.2 L MCHC 31.9 L RDW 19.9 H Plt Count 197 Sodium 139.7 Potassium 3.1 L Chloride 97 L Carbon Dioxide 25 Anion Gap 18 BUN 94 H Creatinine 17.63 H Est GFR ( Amer) 3 L Est GFR (Non-Af Amer) 2 L Glucose 201 H Calcium 9.4 Phosphorus 8.8 H Magnesium 1.7 04/02/18 04/02/18 04/02/18 14:00 14:00 19:13 Creatine Kinase 105 CK-MB (CK-2) 2.18 Troponin I 0.194 0.190 NT-Pro-B Natriuret Pep [id number] H Impressions: Chest X-Ray 04/02/18 13:54 IMPRESSION: Cardiomegaly without acute abnormality of the lungs in low volume AP examination. Assessment & Plan - Diagnosis (1) Pulmonary vascular congestion Is this a current diagnosis for this admission?: Yes Plan: Improving with ultrafiltration. (2) ESRD (end stage renal disease) on dialysis Is this a current diagnosis for this admission?: Yes Plan: Continue the same peritoneal dialysis recheck regimen as ordered while here in the hospital. (3) Asthma Qualifiers: Asthma severity: mild Asthma persistence: intermittent Asthma complication type: with acute exacerbation Qualified Code(s): J45.21 - Mild intermittent asthma with (acute) exacerbation Is this a current diagnosis for this admission?: Yes Plan: We will resume her Advair. (4) Hypertension Qualifiers: Hypertension type: essential hypertension Qualified Code(s): I10 - Essential (primary) hypertension Is this a current diagnosis for this admission?: Yes Plan: Improving controlled. (5) Anemia in chronic kidney disease (CKD) Qualifiers: Chronic kidney disease stage: unspecified stage Qualified Code(s): N18.9 - Chronic kidney disease, unspecified; D63.1 - Anemia in chronic kidney disease Is this a current diagnosis for this admission?: Yes Plan: Patient was just given her Epogen shot yesterday at [facility] prior to coming to the emergency room. (6) GERD (gastroesophageal reflux disease) Is this a current diagnosis for this admission?: Yes Plan: Aside from her asthma, pulmonary congestion it is possible that her cough is contributed to by GERD as well. She was taking omeprazole at home. We will give her Prevacid while here in the hospital. - Time Time with patient: 15-25 minutes
[2018-04-03] MEDS: LANSOPRAZOLE 15 MG TAB.RAP.DR PO SCH (20:59)
[2018-04-03] MEDS: POTASSIUM CHLORIDE 10 MEQ CAPSULE.ER PO SCH (20:59)
[2018-04-03] MEDS: INSULIN GLARGINE,HUM.REC.ANLOG 300 UNIT/3 ML INSULN.PEN SUBCUT SCH (21:47)
[2018-04-03] MEDS: FLUTICASONE/SALMETEROL DISKUS 250-50 MCG/DOSE IH SCH (21:56)
[2018-04-04 05:43] LABS: HEMOGLOBIN 8.5 g/dL (12.0-15.5); MEAN CORPUSCULAR HEMOGLOBIN 25.6 pg (27.0-33.4); MEAN CORPUSCULAR HGB CONC 32.6 g/dL (32.0-36.0); MEAN CORPUSCULAR VOLUME 79 fl (80-97); PLATELET COUNT 207 10^3/uL (150-450); RED BLOOD COUNT 3.31 10^6/uL (3.72-5.28); RED CELL DISTRIBUTION WIDTH 19.9 % (11.5-14.0); WHITE BLOOD COUNT 10.7 10^3/uL (4.0-10.5)
[2018-04-04] MEDS: LANSOPRAZOLE 15 MG TAB.RAP.DR PO SCH ×2 (05:44→17:02)
[2018-04-04] MEDS: HYDRALAZINE HCL 50 MG TABLET PO SCH ×4 (05:44→21:02)
[2018-04-04] MEDS: HEPARIN SOD (PORCINE) 5,000 UNIT/ML 1 ML SYRINGE SUBCUT SCH ×3 (05:46→21:02)
[2018-04-04 06:03] LABS: ANION GAP 19 (5-19); BLOOD UREA NITROGEN 91 mg/dL (7-20); CALCIUM 9.2 mg/dL (8.4-10.2); CARBON DIOXIDE 23 mmol/L (22-30); CHLORIDE 99 mmol/L (98-107); GLUCOSE 150 mg/dL (75-110); PHOSPHORUS 7.6 mg/dL (2.5-4.5); POTASSIUM 3.5 mmol/L (3.6-5.0)
[2018-04-04] MEDS: CALCIUM ACETATE 667 MG CAPSULE PO SCH ×3 (08:14→16:53)
[2018-04-04] MEDS: INSULIN LISPRO 100 UNIT/ML 3 ML VIAL SUBCUT SCH ×7 (08:14→21:05)
[2018-04-04] MEDS: CALCITRIOL 0.25 MCG CAPSULE PO SCH (09:38)
[2018-04-04] MEDS: CARVEDILOL 12.5 MG TABLET PO SCH ×2 (09:38→21:02)
[2018-04-04] MEDS: ASPIRIN 81 MG TABLET, ENT COATED PO SCH (09:38)
[2018-04-04] MEDS: POTASSIUM CHLORIDE 10 MEQ CAPSULE.ER PO SCH (09:39)
[2018-04-04] MEDS: FLUTICASONE/SALMETEROL DISKUS 250-50 MCG/DOSE IH SCH ×2 (09:39→21:01)
[2018-04-04] MEDS: CINACALCET HCL 30 MG TABLET PO SCH (09:40)
[2018-04-04] MEDS: PREGABALIN 75 MG CAPSULE PO SCH ×2 (12:02→21:02)
[2018-04-04] MEDS ORDERED: ACETAMINOPHEN 325 MG TABLET PO PRN (15:59)
[2018-04-04] MEDS: LOPERAMIDE HCL 2 MG CAPSULE PO PRN (17:01)
--- NOTE | 2018-04-04 17:03 | PDOC PROGRESS REPORT ---
Subjective Progress Note for:: 04/04/18 Subjective:: No adverse events overnight. She went back on her usual dialysis regimen and got about 1200 mL's off last night. She was back on some oxygen today. Blood sugars have been elevated but improved with adjustment of her insulin regimen. Reason For Visit: ACUTE DISTOLIC CHF Physical Exam Vital Signs: Temp Pulse Resp BP Pulse Ox 98.2 F 76 16 137/57 H 98 04/04/18 07:42 04/04/18 15:17 04/04/18 07:42 04/04/18 15:17 04/04/18 10:44 Intake & Output 04/03/18 04/04/18 04/05/18 06:59 06:59 06:59 Intake Total 6000 64459 6355 Output Total 9100 69978 6900 Balance -3100 440 -545 Weight 164.6 kg 174.1 kg 173 kg General appearance: PRESENT: no acute distress, cooperative, disheveled, morbidly obese Respiratory exam: PRESENT: decreased breath sounds, symmetrical, unlabored. ABSENT: accessory muscle use, crackles, prolonged expiratory phas, rhonchi, tachypnea, wheezes Cardiovascular exam: PRESENT: RRR, +S1, +S2 Vascular exam: PRESENT: normal capillary refill GI/Abdominal exam: PRESENT: normal bowel sounds, soft. ABSENT: diminished bowel sounds, distended, guarding, rebound, tenderness Extremities exam: PRESENT: pedal edema, +2 edema. ABSENT: clubbing Musculoskeletal exam: PRESENT: normal inspection. ABSENT: deformity Neurological exam: PRESENT: alert, awake, oriented to person, oriented to place, oriented to time, oriented to situation Psychiatric exam: PRESENT: appropriate affect, normal mood Skin exam: PRESENT: dry, warm Results Laboratory Results: 04/04/18 05:29 04/04/18 05:29 04/04/18 04/04/18 05:29 05:29 WBC 10.7 H RBC 3.31 L Hgb 8.5 L Hct 26.0 L MCV 79 L MCH 25.6 L MCHC 32.6 RDW 19.9 H Plt Count 207 Sodium 141.0 Potassium 3.5 L Chloride 99 Carbon Dioxide 23 Anion Gap 19 BUN 91 H Creatinine 17.24 H Est GFR ( Amer) 3 L Est GFR (Non-Af Amer) 2 L Glucose 150 H Calcium 9.2 Phosphorus 7.6 H Magnesium 1.7 04/02/18 04/02/18 04/02/18 14:00 14:00 19:13 Creatine Kinase 105 CK-MB (CK-2) 2.18 Troponin I 0.194 0.190 NT-Pro-B Natriuret Pep [id number] H Impressions: Chest X-Ray 04/02/18 13:54 IMPRESSION: Cardiomegaly without acute abnormality of the lungs in low volume AP examination. Assessment & Plan - Diagnosis (1) Acute on chronic heart failure Qualifiers: Heart failure type: diastolic Qualified Code(s): I50.33 - Acute on chronic diastolic (congestive) heart failure Is this a current diagnosis for this admission?: Yes Plan: As a result of volume overload from missing her dialysis. We will continue her home medications and diurese her via dialysis. (2) ESRD (end stage renal disease) on dialysis Is this a current diagnosis for this admission?: Yes Plan: Dr. Moran has been consulted and has written orders for her peritoneal dialysis. The patient said that she was not tolerating the higher concentration of PD fluid and wanted to go back on her usual 5% dextrose solution, so will probably take longer to get her back to her dry weight. (3) Morbid obesity with BMI of 50.0-59.9, adult Is this a current diagnosis for this admission?: Yes Plan: Encouraged lifestyle modification - Time Time Spent with patient: 25-34 minutes
--- NOTE | 2018-04-04 18:21 | PDOC PROGRESS REPORT ---
Subjective Progress Note for:: 04/04/18 Subjective:: Patient has not been coughing much since admitted. Her breathing is also improved. You are getting enough ultrafiltration with her PD exchanges as much as 200-500 mL to each exchange. Her blood pressure has come down as low as systolic blood pressure of 102 so her second hydralazine dose was held. No issues with her peritoneal dialysis exchanges. Reason For Visit: ACUTE DISTOLIC CHF Physical Exam Vital Signs: Temp Pulse Resp BP Pulse Ox 97.4 F 79 18 131/57 H 100 04/04/18 15:20 04/04/18 15:20 04/04/18 15:20 04/04/18 15:20 04/04/18 15:20 Intake & Output 04/03/18 04/04/18 04/05/18 06:59 06:59 06:59 Intake Total 6000 23359 6778 Output Total 9100 63635 6900 Balance -3100 440 -122 Weight 164.6 kg 174.1 kg 173 kg Exam: General appearance: PRESENT: no acute distress, cooperative, well-developed, w ell-nourished Head exam: PRESENT: atraumatic, normocephalic Eye exam: PRESENT: conjunctiva pale, PERRLA. ABSENT: scleral icterus Neck exam: ABSENT: JVD Respiratory exam: PRESENT: Diminished breath sounds. ABSENT: crackles, rales, rhonchi, unlabored, wheezes Cardiovascular exam: PRESENT: Regular rate rhythm -+S1, +S2. ABSENT: diastolic murmur, systolic murmur GI/Abdominal exam: PRESENT: normal bowel sounds, soft. ABSENT: guarding, mass, tenderness Extremities exam: Grade 1 bilateral lower extremity pitting edema Neurological exam: PRESENT: alert, awake, oriented to person, place and time. Skin exam: PRESENT: dry, warm, Results Laboratory Results: 04/04/18 05:29 04/04/18 05:29 04/04/18 04/04/18 05:29 05:29 WBC 10.7 H RBC 3.31 L Hgb 8.5 L Hct 26.0 L MCV 79 L MCH 25.6 L MCHC 32.6 RDW 19.9 H Plt Count 207 Sodium 141.0 Potassium 3.5 L Chloride 99 Carbon Dioxide 23 Anion Gap 19 BUN 91 H Creatinine 17.24 H Est GFR ( Amer) 3 L Est GFR (Non-Af Amer) 2 L Glucose 150 H Calcium 9.2 Phosphorus 7.6 H Magnesium 1.7 04/02/18 04/02/18 04/02/18 14:00 14:00 19:13 Creatine Kinase 105 CK-MB (CK-2) 2.18 Troponin I 0.194 0.190 NT-Pro-B Natriuret Pep [id number] H Impressions: Chest X-Ray 04/02/18 13:54 IMPRESSION: Cardiomegaly without acute abnormality of the lungs in low volume AP examination. Assessment & Plan - Diagnosis (1) Pulmonary vascular congestion Is this a current diagnosis for this admission?: Yes Plan: Improving with ultrafiltration. I suspect that her cough could be a manifestation of pulmonary congestion. (2) ESRD (end stage renal disease) on dialysis Is this a current diagnosis for this admission?: Yes Plan: We will change her PD regimen to use only 2.5% dianeal solution each exchange with the same fill volume every 4 hours. Discussed with the nurse. (3) Asthma Qualifiers: Asthma severity: mild Asthma persistence: intermittent Asthma complication type: with acute exacerbation Qualified Code(s): J45.21 - Mild intermittent asthma with (acute) exacerbation Is this a current diagnosis for this admission?: Yes Plan: We will resume her Advair. (4) Hypertension Qualifiers: Hypertension type: essential hypertension Qualified Code(s): I10 - Essential (primary) hypertension Is this a current diagnosis for this admission?: Yes Plan: Relatively low so I will decrease her hydralazine to 50 mg every 8 hours. (5) Anemia in chronic kidney disease (CKD) Qualifiers: Chronic kidney disease stage: unspecified stage Qualified Code(s): N18.9 - Chronic kidney disease, unspecified; D63.1 - Anemia in chronic kidney disease Is this a current diagnosis for this admission?: Yes Plan: Patient was just given her Epogen shot last Saturday at [facility] prior to coming to the emergency room. (6) GERD (gastroesophageal reflux disease) Is this a current diagnosis for this admission?: Yes Plan: Aside from her asthma, and pulmonary congestion it is possible that her cough is contributed to by GERD as well. She was taking omeprazole at home. We will give her Prevacid while here in the hospital. - Notes Notes: From nephrology standpoint I think patient can be safely discharged home tomorrow morning. - Time Time with patient: 15-25 minutes
[2018-04-04] MEDS: INSULIN GLARGINE,HUM.REC.ANLOG 300 UNIT/3 ML INSULN.PEN SUBCUT SCH (21:05)
[2018-04-05 05:41] LABS: HEMOGLOBIN 8.3 g/dL (12.0-15.5); MEAN CORPUSCULAR HEMOGLOBIN 25.3 pg (27.0-33.4); MEAN CORPUSCULAR HGB CONC 32.1 g/dL (32.0-36.0); MEAN CORPUSCULAR VOLUME 79 fl (80-97); PLATELET COUNT 208 10^3/uL (150-450); RED BLOOD COUNT 3.29 10^6/uL (3.72-5.28); RED CELL DISTRIBUTION WIDTH 19.8 % (11.5-14.0)
[2018-04-05 06:04] LABS: ANION GAP 18 (5-19); BLOOD UREA NITROGEN 85 mg/dL (7-20); CALCIUM 8.9 mg/dL (8.4-10.2); CARBON DIOXIDE 25 mmol/L (22-30); CHLORIDE 98 mmol/L (98-107); GLUCOSE 146 mg/dL (75-110); PHOSPHORUS 7.3 mg/dL (2.5-4.5); POTASSIUM 3.5 mmol/L (3.6-5.0); SODIUM 140.8 mmol/L (137-145)
[2018-04-05] MEDS: HYDRALAZINE HCL 50 MG TABLET PO SCH (06:30)
[2018-04-05] MEDS: HEPARIN SOD (PORCINE) 5,000 UNIT/ML 1 ML SYRINGE SUBCUT SCH (06:30)
[2018-04-05] MEDS: LANSOPRAZOLE 15 MG TAB.RAP.DR PO SCH (06:30)
[2018-04-05] MEDS: INSULIN LISPRO 100 UNIT/ML 3 ML VIAL SUBCUT SCH ×4 (08:55→12:06)
[2018-04-05] MEDS: CALCIUM ACETATE 667 MG CAPSULE PO SCH ×2 (08:56→12:05)
[2018-04-05] MEDS: ASPIRIN 81 MG TABLET, ENT COATED PO SCH (10:55)
[2018-04-05] MEDS: PREGABALIN 75 MG CAPSULE PO SCH (10:56)
[2018-04-05] MEDS: FLUTICASONE/SALMETEROL DISKUS 250-50 MCG/DOSE IH SCH (10:56)
[2018-04-05] MEDS: CARVEDILOL 12.5 MG TABLET PO SCH (10:56)
[2018-04-05] MEDS: CINACALCET HCL 30 MG TABLET PO SCH (10:57)
[2018-04-05] MEDS: POTASSIUM CHLORIDE 10 MEQ CAPSULE.ER PO SCH (10:58)
[2018-04-05] MEDS: CALCITRIOL 0.25 MCG CAPSULE PO SCH (10:59)
--- NOTE | 2018-04-05 14:22 | PDOC DISCHARGE SUMMARY ---
General - Admit/Disc Date/PCP Admission Date/Primary Care Provider: 04/02/18 16:00 Deandra JANE MD Discharge Date: 04/05/18 - Discharge Diagnosis (1) Acute on chronic heart failure Is this a current diagnosis for this admission?: Yes Summary: She did not do her dialysis for a few days and got volume overloaded. This problem resolved with dialysis and fluid restriction. (2) ESRD (end stage renal disease) on dialysis Is this a current diagnosis for this admission?: Yes Summary: She is been noncompliant in the past with peritoneal dialysis but when she is on it she tolerates it very well and it is very effective. She will follow-up with Dr. Moran as an outpatient. (3) Morbid obesity with BMI of 50.0-59.9, adult Is this a current diagnosis for this admission?: Yes Summary: Encouraged lifestyle modification. - Additional Information Discharge Diet: Cardiac, Diabetic, Other (Comments) Discharge Activity: Activity As Tolerated, Balance Activity w/Rest, Weigh Daily Home Medications: Carvedilol [Coreg 25 mg Tablet] 25 mg PO Q12 04/29/17 Hydralazine HCl 100 mg PO Q8 04/29/17 Pregabalin [Lyrica 75 mg Capsule] 75 mg PO Q12 04/29/17 Calcitriol [Rocaltrol] 0.25 mcg PO DAILY 04/02/18 Calcium Acetate [Phoslo 667 mg Capsule] 1,334 mg PO TID 04/02/18 Cinacalcet HCl [Sensipar 90 mg Tablet] 90 mg PO DAILY 04/02/18 Fluticasone/Salmeterol [Advair 250-50 Diskus 14 Dose/Diskus] 2 puff IH BID 04/02/18 Insulin Glargine,Hum.rec.anlog [Toujeo Solostar] 50 units SQ QHS 04/02/18 Insulin Lispro [Humalog Kwikpen U-100] See Protocol SQ AC 04/02/18 Omeprazole 40 mg PO DAILY 04/02/18 Potassium Chloride [K-Tab ER] 20 meq PO DAILY 04/02/18 Sevelamer HCl [Renagel 800 mg Tablet] 3,200 mg PO QID 04/02/18 History of Present Illness History of Present Illness: JASPREET STAFFORD is a 52 year old female with a history of ESRD on peritoneal dialysis as well as grade 3-4 diastolic dysfunction and insulin-dependent diabetes mellitus who presents with shortness of breath, onset yesterday. She has missed a couple of her peritoneal dialysis treatments and said she noticed some swelling in the shortness of breath starting yesterday. She has had this before, where she would miss dialysis treatments and then get fluid overloaded. She was short of breath and was put on BiPAP in the ER. Her director digital catalogue Dr. Moran was contacted and Dr. Moran has written some peritoneal dialysis orders for her. She is being admitted for diuresis through peritoneal dialysis as well as respiratory support. Hospital Course Hospital Course: The first day she was here, she was put on a higher concentration of peritoneal dialysis fluid, and this made her blood sugar go up a little bit she said she did not feel very good. It was effective, however, we were able to get off a good amount of fluid the first day. We restrict her fluid intake and went back to her usual peritoneal dialysis with good results. She was initially requiring BiPAP, and she was down to nasal cannula by the next day. We were able to wean her off oxygen and we walked her on room air today and her SPO2 was anywhere from 92-98%. She will resume her usual peritoneal dialysis treatments and imp ortance was stressed regarding compliance. Her labs and examination were reassuring and she was discharged in good condition. Physical Exam Vital Signs: Temp Pulse Resp BP Pulse Ox 98.3 F 77 18 141/72 H 100 04/05/18 11:51 04/05/18 12:21 04/05/18 11:51 04/05/18 12:21 04/05/18 11:51 Intake & Output 04/04/18 04/05/18 04/06/18 06:59 06:59 06:59 Intake Total 26710 44658 2500 Output Total 73570 63053 3200 Balance 440 -902 700 Weight 174.1 kg 177.9 kg 173 kg General appearance: PRESENT: no acute distress, cooperative, disheveled, morbidly obese Respiratory exam: PRESENT: decreased breath sounds, symmetrical, unlabored. ABSENT: accessory muscle use, crackles, prolonged expiratory phas, rhonchi, tachypnea, wheezes Cardiovascular exam: PRESENT: RRR, +S1, +S2 Vascular exam: PRESENT: normal capillary refill GI/Abdominal exam: PRESENT: normal bowel sounds, soft. ABSENT: diminished bowel sounds, distended, guarding, rebound, tenderness Extremities exam: PRESENT: pedal edema, +2 edema. ABSENT: clubbing Musculoskeletal exam: PRESENT: normal inspection. ABSENT: deformity Neurological exam: PRESENT: alert, awake, oriented to person, oriented to place, oriented to time, oriented to situation Psychiatric exam: PRESENT: appropriate affect, normal mood Skin exam: PRESENT: dry, warm Results Laboratory Results: 04/05/18 05:20 04/05/18 05:20 04/05/18 04/05/18 05:20 05:20 WBC 10.0 RBC 3.29 L Hgb 8.3 L Hct 26.0 L MCV 79 L MCH 25.3 L MCHC 32.1 RDW 19.8 H Plt Count 208 Sodium 140.8 Potassium 3.5 L Chloride 98 Carbon Dioxide 25 Anion Gap 18 BUN 85 H Creatinine 17.45 H Est GFR ( Amer) 3 L Est GFR (Non-Af Amer) 2 L Glucose 146 H Calcium 8.9 Phosphorus 7.3 H Magnesium 1.7 04/02/18 04/02/18 04/02/18 14:00 14:00 19:13 Creatine Kinase 105 CK-MB (CK-2) 2.18 Troponin I 0.194 0.190 NT-Pro-B Natriuret Pep 85735 H Impressions: Chest X-Ray 04/02/18 13:54 IMPRESSION: Cardiomegaly without acute abnormality of the lungs in low volume AP examination. Qualifiers - * PATIENT BEING DISCHARGED WITH ANY OF THE FOLLOWING DIAGNOSIS: No
[2018-04-05 14:49] VITALS: BP 161/71
== END 2018-04-05 14:58 | disposition home or self-care (01) | DRG 291 ==
LOC: ER 13:02 → EH 16:00 → 3S 17:50
PROVIDERS: ADMIT Family Medicine; ATTEND Family Medicine
PROC: 5A09457 Assistance with Respiratory Ventilation, 24-96 Consecutive Hours, Continuous Positive Airway Pressure (ICD-10-PCS; principal; 2018-04-02)
PROC: 3E1M39Z Irrigation of Peritoneal Cavity using Dialysate, Percutaneous Approach (ICD-10-PCS; 2018-04-02)
DX: I13.2 Hypertensive heart and chronic kidney disease with heart failure and with stage 5 chronic kidney disease, or end stage renal disease (principal); I50.33 Acute on chronic diastolic (congestive) heart failure; N18.6 End stage renal disease; Z68.43 Body mass index [BMI] 50.0-59.9, adult; J45.21 Mild intermittent asthma with (acute) exacerbation; E11.22 Type 2 diabetes mellitus with diabetic chronic kidney disease; Z99.2 Dependence on renal dialysis; Z91.15 Patient's noncompliance with renal dialysis; D63.1 Anemia in chronic kidney disease; E78.5 Hyperlipidemia, unspecified; G47.30 Sleep apnea, unspecified; E66.01 Morbid (severe) obesity due to excess calories; E11.21 Type 2 diabetes mellitus with diabetic nephropathy; K21.9 Gastro-esophageal reflux disease without esophagitis; K74.60 Unspecified cirrhosis of liver; Z90.710 Acquired absence of both cervix and uterus; Z83.3 Family history of diabetes mellitus; Z82.49 Family history of ischemic heart disease and other diseases of the circulatory system; Z84.1 Family history of disorders of kidney and ureter; Z79.4 Long term (current) use of insulin; Z88.5 Allergy status to narcotic agent; Z88.8 Allergy status to other drugs, medicaments and biological substances
CPT/HCPCS: 36415; 71045; 80048; 80053; 82550; 82553; 82962; 83735; 83880; 84100; 84484; 85025; 85027; 90945; 90947; 93005; 93010; 94660; 99291; J1644; J1815; J3490

== ENCOUNTER → 2018-05-29 | Outpatient (CLI) | payer MEDICARE, MEDICAID ==
--- NOTE | 2018-05-29 15:35 | WOMENS IMAGING REPORT ---
EXAM DESCRIPTION: 3D SCREENING MAMMO BILAT COMPLETED DATE/TIME: 05/29/2018 1:42 pm REASON FOR STUDY: Z12.31 ROUTINE 3D BILATERAL SCREENING Z12.31 ENCNTR SCREEN MAMMOGRAM FOR MALIGNAN T NEOPLASM OF [place] COMPARISON: 2010, 2012 TECHNIQUE: Standard craniocaudal and mediolateral oblique views of each breast recorded using digita l acquisition and breast tomosynthesis. LIMITATIONS: None. FINDINGS: Findings present which are benign by mammographic criteria. No suspicious masses, calcific ations or architectural distortion. Pertinent benign findings: Stable calcifications. Read with the assistance of CAD. .[facility] - R2 Cenova Version 1.3 .[facility] Imaging - R2 Cenova Version 2.1 .[facility] - R2 Cenova Version 2.4 .[facility] [place] Cenova Version 2.4 .[facility] - R2 Grouter Helper Version 9.2 Benign mammographic findings may include one or more of the following: Smooth masses, popcorn/rim/coa rse calcifications, asymmetries, post-procedure changes, and lesions with long-standing stability. IMPRESSION: BENIGN MAMMOGRAPHIC FINDINGS. BIRADS 2 BREAST DENSITY: a. The breasts are almost entirely fatty. BIRAD: 2 BENIGN FINDING(S) RECOMMENDATION: ROUTINE SCREENING COMMENT: The patient has been notified of the results by letter per SA requirements. Additional no tification policies are in place for contacting patient with suspicious or incomplete findings. Quality ID #[id number]: The [employer] [place] [employer] recommends an annual screening mammogram for women aged 40 years or over. This facility utilizes a reminder system to ensure that all patients receive reminder letters, and/or direct phone calls for appointments. This includes reminders for routine scr eening mammograms, diagnostic mammograms, or other Breast Imaging Interventions when appropriate. Th is patient will be placed in the appropriate reminder system. The [place] [employer] (ACR) has developed recommendations for screening MRI of the breast s in certain patient populations, to be used in conjunction with mammography. Breast MRI surveillanc e may be appropriate for women with more than 20% lifetime risk of developing breast cancer as deter mined by genetic testing, significant family history of the disease, or history of mantle radiation f or Hodgkins Disease. ACR Practice Guidelines 2008. DBT Technology DBT is a type of tomographic mammography. With conventional mammography, overlapping breast tissue ma y make lesions difficult to detect, even with good compression. DBT uses an x-ray tube that rotates a round the breast, taking images at different angles. These images are then combined to create thin sl ices of the breast that the radiologist can view as a 3D reconstruction. The Hologic unit can perform full-field digital mammograms (2D imaging); or DBT (3D imaging); or both, in a combination mode that quickly performs both the mammogram and the tomosynthesis scan while the breast is still compressed. PQRS 6045F: Fluoroscopic imaging is not utilized for breast tomosynthesis. TECHNICAL DOCUMENTATION: FINDING NUMBER: (1) ASSESSMENT: (1) JOB ID: [id number] [employer]- All Rights Reserved Reading location - IP/workstation name: [email or web address]
== END ==
LOC: WI 11:31
PROVIDERS: ATTEND Physician Assistant
DX: Z12.31 Encounter for screening mammogram for malignant neoplasm of breast (principal)
CPT/HCPCS: 77063; 77067

== ENCOUNTER 2018-06-04 00:45 | Emergency (ER) | payer MEDICARE, MEDICAID ==
[2018-06-04] MEDS ORDERED: CLINDAMYCIN PHOSPHATE INJ 300 MG/2 ML SDV IM ONE (02:22)
[2018-06-04] MEDS ORDERED: KETOROLAC TROMETHAMINE 60 MG/2 ML SDV IM ONE (02:23)
--- NOTE | 2018-06-04 02:30 | ER Document Report ---
ED Skin Rash/Insect Bite/Abscs - General Chief Complaint: Boil Stated Complaint: SKIN ISSUE Time Seen by Provider: 06/04/18 02:05 Primary Care Provider: JULIA GOMEZ PA-C [Primary Care Provider] - Follow up as needed Information source: Patient Notes: Patient is a 52-year-old morbidly obese female comes to emergency room complaining of having an abscess in her buttocks on the right side. Patient states that she noticed it about Saturday and that it ruptured sometime today and has been draining consistently since then. States the pain is deep and dissipated some but the smell is foul. She states that she has had to use several pads to collect up the wooziness that is coming out. She denies any fever at this time. She also denies any shortness of breath or chest pain. Patient states she has a history of having abscesses and has not had one in approximately 6 months. TRAVEL OUTSIDE OF THE [place] IN LAST 30 DAYS: No - HPI Patient complains to provider of: Skin rash/lesion, Tender/swollen area Onset: Last week Onset/Duration: Gradual, Better Quality of pain: Sharp, Throbbing Pain Level: 3 Skin Character: Abscess, Drainage, Erythema, Thickening Skin Temperature: Warm Quality of rash: Painful Identify cause: No Exacerbated by: Movement, Walking Relieved by: Denies Similar symptoms previously: Yes Recently seen / treated by doctor: No - Related Data Allergies/Adverse Reactions: oxycodone HCl [From Percocet] Allergy (Verified 06/04/18 00:47) Nausea prochlorperazine edisylate [From Compazine] Allergy (Verified 06/04/18 00:47) Hallucinations propoxyphene napsylate [From Darvocet-N 100] Allergy (Verified 06/04/18 00:47) Hallucinations Past Medical History - General Information source: Patient, COUNT INCLUDES THE [facility] Records - Social History Smoking Status: Never Smoker Cigarette use (# per day): No Chew tobacco use (# tins/day): No Smoking Education Provided: No Frequency of alcohol use: None Drug Abuse: None Lives with: Family Family History: Reviewed & Not Pertinent, DM, Hypertension Patient has suicidal ideation: No Patient has homicidal ideation: No - Past Medical History Cardiac Medical History: Reports: Hx Congestive Heart Failure, Hx Hypercholesterolemia, Hx Hypertension Denies: Hx Coronary Artery Disease, Hx Heart Attack Pulmonary Medical History: Reports: Hx Asthma, Hx Pneumonia, Hx Sleep Apnea Denies: Hx Bronchitis, Hx COPD Neurological Medical History: Denies: Hx Cerebrovascular Accident, Hx Seizures Endocrine Medical History: Reports: Hx Diabetes Mellitus Type 2 Renal/ Medical History: Reports: Hx End Stage Renal Disease - Peritoneal dialysis, Hx Kidney Stones, Hx Peritoneal Dialysis GI Medical History: Reports: Hx Cirrhosis - Scheduled for liver biopsy in [place] by Dr. Dennis on 04/14/2018., Hx Gastroesophageal Reflux Disease Musculoskeletal Medical History: Denies Hx Arthritis Psychiatric Medical History: Reports: Hx Depression Past Surgical History: Reports: Hx Abdominal Surgery - peritoneal dialysis fistula, Hx Hysterectomy, Hx Tubal Ligation, Other - Peritoneal dialysis catheter placement - Immunizations Immunizations up to date: No Hx Diphtheria, Pertussis, Tetanus Vaccination: Yes Hx Pneumococcal Vaccination: 11/18/16 Review of Systems - Review of Systems Constitutional: No symptoms reported EENT: No symptoms reported Cardiovascular: No symptoms reported Respiratory: No symptoms reported Gastrointestinal: No symptoms reported Genitourinary: No symptoms reported Female Genitourinary: No symptoms reported Musculoskeletal: No symptoms reported Skin: See HPI, Lesions, Lumps Hematologic/Lymphatic: No symptoms reported Neurological/Psychological: No symptoms reported -: Yes All other systems reviewed and negative Physical Exam - Vital signs Vitals: Temp Pulse Resp BP Pulse Ox 98.2 F 109 H 18 154/93 H 96 06/04/18 00:56 06/04/18 00:56 06/04/18 00:56 06/04/18 00:56 06/04/18 00:56 Interpretation: Hypertensive, Tachycardic - Notes Notes: PHYSICAL EXAMINATION: GENERAL: Patient is a well-nourished well-developed morbidly obese 52-year-old female who is in no apparent distress on physical exam. Patient does appear somewhat uncomfortable HEAD: Atraumatic, normocephalic. EYES: Pupils equal round and reactive to light, extraocular movements intact, conjunctiva are normal. NECK: Normal range of motion, supple without lymphadenopathy LUNGS: Breath sounds clear to auscultation bilaterally and equal. No wheezes rales or rhonchi. HEART: Regular rate and rhythm without murmurs. Female : deferred Musculoskeletal: Normal range of motion, no pitting or edema. No cyanosis. NEUROLOGICAL Normal speech, normal gait. Normal sensory, motor exams PSYCH: Normal mood, normal affect. SKIN: Examination patient's area of concern is her right buttocks anterior groin there appears to be an induration of approximately 7 cm by 3 or 4 cm. The area is inflamed nonfluctuant skin appears to be inflamed at this point. Patient has an opening that is draining some really foul-smelling fluid leak white pus. The opening is approximately half a centimeter wide. Pressure applied to the sides when able to express moderate amount of the drainage. At this point there does not appear to be an abscess involved. It was a spontaneous rupture of the abscess. Course - Re-evaluation Re-evalutation: 06/04/18 02:30 Patient spontaneously opened her own abscess in her right buttocks cheek and inferior portion. It is draining a cyst very foul-smelling whitish pus and is not in need of having an I&D at this time. Patient will continue use warm moist compresses and we will put her on antibiotics for this. - Vital Signs Vital signs: Temp Pulse Resp BP Pulse Ox 98.2 F 109 H 18 154/93 H 96 06/04/18 00:56 06/04/18 00:56 06/04/18 00:56 06/04/18 00:56 06/04/18 00:56 Discharge - Discharge Clinical Impression: Abscess, Spontaneous abscess rupture, Cellulitis and abscess of buttock Condition: Good Disposition: HOME, SELF-CARE Instructions: Abscess ([facility]), Cephalexin ([facility]), Doxycycline ([facility]), Cellulitis ([facility]) Additional Instructions: Home use warm moist compresses as we discussed. Or he may use sits baths but avoid sitting in a bathtub. Are clean balls that are placed into a toilet where you can spread her cheeks and sit inside it with warm moist soapy water. If you are not able to do this and use warm moist compresses such as is a wash rag or towel heated or warmed up from the sink faucet as warm as you can stand it without having to burn herself. Do not put these things in the microwave. Take both of the antibiotics as directed monitor this very closely if for any reason it gets bigger or you should have increasing amount of pain or are afraid is not healing appropriately come back at any time for a recheck. However I really want you to come back within 48 hours to have it reevaluated to make sure that it is getting better. Prescriptions: Cephalexin Monohydrate [Keflex 500 mg Capsule] 500 mg PO Q6H 10 Days #40 capsule Doxycycline Hyclate 100 mg PO BID 10 Days #20 capsule Fluconazole [Diflucan] 150 mg PO ASDIR #2 tablet Forms: Elevated Blood Pressure Referrals: JULIA GOMEZ PA-C [Primary Care Provider] - Follow up as needed
[2018-06-04 03:07] VITALS: BP 145/92
== END 2018-06-04 03:20 | disposition home or self-care (01) ==
LOC: ER 00:45
DX: L02.31 Cutaneous abscess of buttock (principal); I11.0 Hypertensive heart disease with heart failure; E11.22 Type 2 diabetes mellitus with diabetic chronic kidney disease; N18.6 End stage renal disease; I13.2 Hypertensive heart and chronic kidney disease with heart failure and with stage 5 chronic kidney disease, or end stage renal disease; E78.00 Pure hypercholesterolemia, unspecified; I50.9 Heart failure, unspecified; Z99.2 Dependence on renal dialysis; Z88.6 Allergy status to analgesic agent
CPT/HCPCS: 99282; 96372; J3490; J1885

== ENCOUNTER → 2018-06-13 | Outpatient (CLI) | payer MEDICARE, MEDICAID ==
--- NOTE | 2018-06-13 11:29 | RADIOLOGY REPORT (SQ) ---
EXAM DESCRIPTION: KUB COMPLETED DATE/TIME: 06/13/2018 11:14 am REASON FOR STUDY: ABDOMINAL MASS , UNSPECIFIED ABDOMINAL LOCATION R19.00 INTRA-ABD AND PELVIC SWELL ING, MASS AND LUMP, UNSP SI COMPARISON: 02/02/2018. NUMBER OF VIEWS: One view. TECHNIQUE: Supine radiographic image of the abdomen acquired. LIMITATIONS: None. FINDINGS: BOWEL GAS PATTERN: Normal bowel gas pattern. No dilated loops. CALCIFICATIONS: No suspicious calcifications. SOFT TISSUES: No gross mass or suggestion of organomegaly. HARDWARE: Peritoneal dialysis catheter. BONES: No acute fracture. No worrisome bone lesions. OTHER: No other significant finding. IMPRESSION: NO RADIOGRAPHIC EVIDENCE FOR ACUTE ABDOMINAL DISEASE. TECHNICAL DOCUMENTATION: JOB ID: [id number] [employer]- All Rights Reserved Reading location - IP/workstation name: [email or web address]
== END ==
LOC: OD 10:57
PROVIDERS: ATTEND Physician Assistant
DX: R19.00 Intra-abdominal and pelvic swelling, mass and lump, unspecified site (principal)
CPT/HCPCS: 74018

== ENCOUNTER 2018-06-24 15:42 | Observation (INO) | payer MEDICARE, MEDICAID ==
[2018-06-24] MEDS ORDERED: DEXTROSE 40% GEL 15 GM TUBE PO PRN ×3 (16:38→19:00)
[2018-06-24] MEDS ORDERED: GLUCAGON,HUMAN RECOMB 1 MG INJ SUBCUT PRN (16:38)
[2018-06-24] MEDS ORDERED: DEXTROSE 50%-WATER 25 GM/50 ML DISP.SYRIN IV PRN ×2 (16:38)
[2018-06-24 17:08] LABS: ABSOLUTE BASOPHILS # (AUTO) 0.1 10^3/uL (0.0-0.2); ABSOLUTE EOSINOPHILS # (AUTO) 0.2 10^3/uL (0.0-0.6); ABSOLUTE LYMPHOCYTES (AUTO) 1.1 10^3/uL (0.5-4.7); ABSOLUTE MONOCYTES (AUTO) 1.3 10^3/uL (0.1-1.4); ABSOLUTE NEUT (AUTO) 8.2 10^3/uL (1.7-8.2); BASOPHILS % (AUTO) 0.7 % (0-2); HEMATOCRIT 28.7 % (36.0-47.0); HEMOGLOBIN 8.9 g/dL (12.0-15.5); LYMPHOCYTES % (AUTO) 10.4 % (13-45); MEAN CORPUSCULAR HEMOGLOBIN 24.5 pg (27.0-33.4); MEAN CORPUSCULAR VOLUME 79 fl (80-97); PLATELET COUNT 232 10^3/uL (150-450); RED BLOOD COUNT 3.63 10^6/uL (3.72-5.28); RED CELL DISTRIBUTION WIDTH 19.3 % (11.5-14.0); SEGMENTED NEUTROPHILS % (AUTO) 74.9 % (42-78); TOTAL CELLS COUNTED % (AUTO) 100 %
--- NOTE | 2018-06-24 17:14 | PDOC CONSULTATION ---
Consultation Consult Date: 06/24/18 Attending physician:: MARTHA KHALIL Consult reason:: Medical management History of Present Illness Admission Date/PCP: 06/24/18 15:42 JULIA GOMEZ PA-C History of Present Illness: JASPREET STAFFORD is a 52 year old black female patient with past medical history of hyperlipidemia, obstructive sleep apnea, hypertension, morbid obesity, diabetes mellitus and chronic renal failure, admitted for abdominal wall abscess, directly from Dr. Khalil's office. The hospitalist service consulted for medical management. Patient denied any fever, chills, palpitation or diaph oresis. Past Medical History Cardiac Medical History: Reports: Congestive Heart Failure, Hyperlipidema, Hypertension Denies: Coronary Artery Disease, Myocardial Infarction Pulmonary Medical History: Reports: Asthma, Pneumonia, Sleep Apnea Denies: Bronchitis, Chronic Obstructive Pulmonary Disease (COPD) Neurological Medical History: Denies: Seizures Endocrine Medical History: Reports: Diabetes Mellitus Type 1, Diabetes Mellitus Type 2 Renal/ Medical History: Reports: End Stage Renal Disease - Peritoneal dialysis GI Medical History: Reports: Cirrhosis - Scheduled for liver biopsy in [place] by Dr. Dennis on 04/14/2018., Gastroesophageal Reflux Disease Musculoskeltal Medical History: Denies: Arthritis Psychiatric Medical History: Reports: Depression Hematology: Denies: Anemia Infectious Medical History: Denies: Methicillin-Resistant Staph Aureus Past Surgical History Past Surgical History: Reports: Hysterectomy, Tubal Ligation, Other - Peritoneal dialysis catheter placement Social History Smoking Status: Never Smoker Frequency of Alcohol Use: None Hx Recreational Drug Use: No Drugs: None Hx Prescription Drug Abuse: No - Advance Directive Resuscitation Status: Full Code Family History Family History: Reviewed & Not Pertinent, DM, Hypertension Parental Family History Reviewed: Yes Children Family History Reviewed: Yes Sibling(s) Family History Reviewed.: Yes Medication/Allergy Home Medications: Carvedilol [Coreg 25 mg Tablet] 25 mg PO Q12 04/29/17 Hydralazine HCl 100 mg PO Q8 04/29/17 Pregabalin [Lyrica 75 mg Capsule] 75 mg PO Q12 04/29/17 Calcitriol [Rocaltrol] 0.25 mcg PO DAILY 04/02/18 Calcium Acetate [Phoslo 667 mg Capsule] 1,334 mg PO TID 04/02/18 Cinacalcet HCl [Sensipar 90 mg Tablet] 90 mg PO DAILY 04/02/18 Fluticasone/Salmeterol [Advair 250-50 Diskus 14 Dose/Diskus] 2 puff IH BID 04/02/18 Insulin Glargine,Hum.rec.anlog [Toujeo Solostar] 50 units SQ QHS 04/02/18 Insulin Lispro [Humalog Kwikpen U-100] See Protocol SQ AC 04/02/18 Omeprazole 40 mg PO DAILY 04/02/18 Potassium Chloride [K-Tab ER] 20 meq PO DAILY 04/02/18 Sevelamer HCl [Renagel 800 mg Tablet] 3,200 mg PO QID 04/02/18 Cephalexin Monohydrate [Keflex 500 mg Capsule] 500 mg PO Q6H 10 Days #40 capsule 06/04/18 Doxycycline Hyclate 100 mg PO BID 10 Days #20 capsule 06/04/18 Fluconazole [Diflucan] 150 mg PO ASDIR #2 tablet 06/04/18 Allergies/Adverse Reactions: oxycodone HCl [From Percocet] Allergy (Verified 06/04/18 00:47) Nausea prochlorperazine edisylate [From Compazine] Allergy (Verified 06/04/18 00:47) Hallucinations propoxyphene napsylate [From Darvocet-N 100] Allergy (Verified 06/04/18 00:47) Hallucinations Review of Systems Constitutional: PRESENT: as per HPI Eyes: PRESENT: as per HPI Nose, Mouth, and Throat: PRESENT: as per HPI Cardiovascular: PRESENT: as per HPI Gastrointestinal: PRESENT: as per HPI Musculoskeletal: PRESENT: as per HPI Neurological: PRESENT: as per HPI Psychiatric: PRESENT: as per HPI Physical Exam Vital Signs: Temp Pulse Resp BP Pulse Ox 99 18 145/98 H 100 06/24/18 16:02 06/24/18 16:02 06/24/18 16:02 06/24/18 16:02 Intake & Output 06/23/18 06/24/18 06/25/18 06:59 06:59 06:59 Weight 154.221 kg General appearance: PRESENT: no acute distress, morbidly obese Head exam: PRESENT: atraumatic, normocephalic Eye exam: PRESENT: conjunctiva pink Neck exam: ABSENT: carotid bruit, JVD, lymphadenopathy, thyromegaly Respiratory exam: PRESENT: clear to auscultation shira. ABSENT: rales, rhonchi, wheezes Cardiovascular exam: PRESENT: RRR. ABSENT: diastolic murmur, rubs, systolic murmur GI/Abdominal exam: PRESENT: tenderness Neurological exam: PRESENT: alert, awake, oriented to time, oriented to situation Assessment and Plan - Diagnosis (1) Abdominal wall abscess Is this a current diagnosis for this admission?: Yes Plan: Dr. Khalil scheduled her for incision and drainage and debridement. I will put her on ampicillin sub-lactam. (2) Type 2 diabetes mellitus Is this a current diagnosis for this admission?: Yes Plan: I would review and reconcile her medications in the meantime we will put her on sliding scale. (3) Hypertension Qualifiers: Hypertension type: essential hypertension Qualified Code(s): I10 - Essential (primary) hypertension Is this a current diagnosis for this admission?: Yes Plan: Continue her home medication. (4) Hyperlipidemia Qualifiers: Hyperlipidemia type: unspecified Qualified Code(s): E78.5 - Hyperlipidemia, unspecified Is this a current diagnosis for this admission?: Yes Plan: Continue her home medication (5) ORLIN (obstructive sleep apnea) Is this a current diagnosis for this admission?: Yes Plan: We will put her on CPAP machine (6) Chronic renal failure, stage 4 (severe) Is this a current diagnosis for this admission?: Yes Plan: We will avoid nephrotoxic agents. Patient needs follow-up with her primary electrical linesworker. (7) Morbid obesity with BMI of 40.0-44.9, adult Is this a current diagnosis for this admission?: Yes Plan: Lifestyle modification advised.
[2018-06-24 17:31] LABS: ALANINE AMINOTRANSFERASE 29 U/L (9-52); ALBUMIN 3.3 g/dL (3.5-5.0); ALKALINE PHOSPHATASE 209 U/L (38-126); ASPARTATE AMINO TRANSFERASE 11 U/L (14-36); BILIRUBIN,DIRECT 0.5 mg/dL (0.0-0.4); BILIRUBIN,TOTAL 0.5 mg/dL (0.2-1.3); BLOOD UREA NITROGEN 69 mg/dL (7-20); CALCIUM 10.6 mg/dL (8.4-10.2); GLUCOSE 382 mg/dL (75-110); POTASSIUM 3.1 mmol/L (3.6-5.0); TOTAL PROTEIN 6.7 g/dL (6.3-8.2)
--- NOTE | 2018-06-24 17:32 | PDOC H&P ---
History of Present Illness Admission Date/PCP: 06/24/18 15:42 JULIA GOMEZ PA-C History of Present Illness: JASPREET STAFFORD is a 52 year old female with a one-month history of a growing mass in the right lower quadrant abdominal pannus. Patient reports that it started as a small "bump" and has grown into a mass the size of a baseball. It is excessively tender to palpation. She denies any history of trauma. She denies fevers or chills. She denies a history of injections in this area. There has been no purulent drainage. Nothing makes her pain better. Palpation makes it worse. Her pain is sharp/stabbing and rates 8 out of 10. Currently she denies chest pain, shortness of breath, nausea, vomiting, melena, hematochezia, dizziness, orthostasis, headache. Past Medical History Cardiac Medical History: Reports: Congestive Heart Failure, Hyperlipidema, Hypertension Denies: Coronary Artery Disease, Myocardial Infarction Pulmonary Medical History: Reports: Asthma, Pneumonia, Sleep Apnea Denies: Bronchitis, Chronic Obstructive Pulmonary Disease (COPD) Neurological Medical History: Denies: Seizures Endocrine Medical History: Reports: Diabetes Mellitus Type 1, Diabetes Mellitus Type 2 Renal/ Medical History: Reports: End Stage Renal Disease - Peritoneal dialysis GI Medical History: Reports: Cirrhosis - Scheduled for liver biopsy in [place] by Dr. Dennis on 04/14/2018., Gastroesophageal Reflux Disease Musculoskeltal Medical History: Denies: Arthritis Psychiatric Medical History: Reports: Depression Hematology: Denies: Anemia Infectious Medical History: Denies: Methicillin-Resistant Staph Aureus Past Surgical History Past Surgical History: Reports: Hysterectomy, Tubal Ligation, Other - Peritoneal dialysis catheter placement Social History Smoking Status: Never Smoker Frequency of Alcohol Use: None Hx Recreational Drug Use: No Drugs: None Hx Prescription Drug Abuse: No - Advance Directive Resuscitation Status: Full Code Family History Family History: Reviewed & Not Pertinent, DM, Hypertension Parental Family History Reviewed: Yes Children Family History Reviewed: Yes Sibling(s) Family History Reviewed.: Yes Medication/Allergy Allergies/Adverse Reactions: oxycodone HCl [From Percocet] Allergy (Verified 06/04/18 00:47) Nausea prochlorperazine edisylate [From Compazine] Allergy (Verified 06/04/18 00:47) Hallucinations propoxyphene napsylate [From Darvocet-N 100] Allergy (Verified 06/04/18 00:47) Hallucinations Review of Systems Constitutional: ABSENT: anorexia, chills, fatigue Eyes: ABSENT: visual disturbances Ears: ABSENT: hearing changes Nose, Mouth, and Throat: ABSENT: mouth pain, sore throat Cardiovascular: ABSENT: chest pain Respiratory: ABSENT: cough Gastrointestinal: PRESENT: abdominal pain, other - Right lower quadrant mass. ABSENT: hematemesis, hematochezia, melena, nausea, vomiting Genitourinary: ABSENT: difficulty urinating Musculoskeletal: ABSENT: back pain Integumentary: PRESENT: lesions - Right lower quadrant mass, tender to palpation.. ABSENT: pruritus Neurological: ABSENT: confusion, convulsions, dizziness Psychiatric: ABSENT: anxiety, depression Endocrine: ABSENT: cold intolerance, heat intolerance Hematologic/Lymphatic: ABSENT: easy bleeding, easy bruising Physical Exam Vital Signs: Temp Pulse Resp BP Pulse Ox 99 18 145/98 H 100 06/24/18 16:02 06/24/18 16:02 06/24/18 16:02 06/24/18 16:02 Intake & Output 06/23/18 06/24/18 06/25/18 06:59 06:59 06:59 Weight 154.221 kg General appearance: PRESENT: cooperative, morbidly obese Eye exam: PRESENT: EOMI, PERRLA. ABSENT: scleral icterus Mouth exam: PRESENT: moist, neck supple Neck exam: ABSENT: meningismus, tenderness, thyromegaly, tracheal deviation Respiratory exam: PRESENT: clear to auscultation shira, unlabored. ABSENT: chest wall tenderness, tachypnea, wheezes Cardiovascular exam: PRESENT: RRR Pulses: PRESENT: normal radial pulses Vascular exam: PRESENT: normal capillary refill. ABSENT: pallor GI/Abdominal exam: PRESENT: soft, tenderness - Right lower quadrant, other - Morbidly obese. Approximately 10 cm indurated area of the right lower quadrant pannus. There is tenderness to palpation.. ABSENT: distended Rectal exam: PRESENT: deferred Extremities exam: ABSENT: clubbing Musculoskeletal exam: ABSENT: deformity Neurological exam: PRESENT: alert, awake, oriented to person, oriented to place, oriented to time, oriented to situation Psychiatric exam: ABSENT: agitated, anxious, depressed Skin exam: ABSENT: cyanosis, erythema, jaundice Results Laboratory Results: 06/24/18 16:45 06/24/18 16:45 WBC 11.0 H RBC 3.63 L Hgb 8.9 L Hct 28.7 L MCV 79 L MCH 24.5 L MCHC 31.0 L RDW 19.3 H Plt Count 232 Seg Neutrophils % 74.9 Lymphocytes % 10.4 L Monocytes % 12.0 Eosinophils % 2.0 Basophils % 0.7 Absolute Neutrophils 8.2 Absolute Lymphocytes 1.1 Absolute Monocytes 1.3 Absolute Eosinophils 0.2 Absolute Basophils 0.1 Assessment & Plan - Diagnosis (1) Right lower quadrant abdominal tenderness Qualifiers: Presence of rebound: absent Qualified Code(s): R10.813 - Right lower quadrant abdominal tenderness Is this a current diagnosis for this admission?: Yes (2) Abdominal wall abscess Is this a current diagnosis for this admission?: Yes - Plan Summary Plan Summary: This is a morbidly obese 52-year-old female with an enlarging mass in her right lower quadrant pannus. The patient reports that it has progressively enlarged over the last 1 month. It started as a very small subcutaneous bump, and has grown significantly. The mass is exquisitely tender to palpation. I suspect that this represents a subcutaneous abscess. Other differential diagnoses incl ude hematoma versus tumor. I will obtain an ultrasound of the right lower quadrant to rule out an obvious tumor. I will start the patient on antibiotics. I plan to perform incision and drainage tomorrow. N.p.o. after midnight. This is been discussed with the patient at length. She and her family members are in agreement with the treatment plan.
[2018-06-24 17:36] LABS: CARBON DIOXIDE 28 mmol/L (22-30); CHLORIDE 87 mmol/L (98-107); SODIUM 134.5 mmol/L (137-145)
[2018-06-24 17:37] LABS: ANION GAP 20 (5-19)
--- NOTE | 2018-06-24 17:55 | RADIOLOGY REPORT (SQ) ---
EXAM DESCRIPTION: CHEST SINGLE VIEW COMPLETED DATE/TIME: 06/24/2018 5:27 pm REASON FOR STUDY: short of breath. R06.02 SHORTNESS OF BREATH R10.813 RIGHT LOWER QUADRANT ABDOMIN AL TENDERNESS COMPARISON: 04/02/2018 NUMBER OF VIEWS: One view. TECHNIQUE: Single frontal radiographic view of the chest acquired. LIMITATIONS: AP portable. Body habitus. FINDINGS: LUNGS AND PLEURA: Low lung volumes. No obvious infiltrate. MEDIASTINUM AND HILAR STRUCTURES: No masses. Contour normal. HEART AND VASCULAR STRUCTURES: Cardiomegaly. Vascular congestion. BONES: No acute findings. HARDWARE: None in the chest. OTHER: No other significant finding. IMPRESSION: Low lung volumes. Vascular congestion. TECHNICAL DOCUMENTATION: JOB ID: [id number] [employer]- All Rights Reserved Reading location - IP/workstation name: [email or web address]
[2018-06-24] MEDS ORDERED: (PENDING PHARMACY ID) (Fluticasone/Salmeterol 2 PUFF) IH SCH (18:00)
[2018-06-24] MEDS ORDERED: ONDANSETRON HCL INJ/PF 4 MG/2 ML SDV IV PRN (18:42)
[2018-06-24] MEDS ORDERED: DEXTROSE 40% GEL 15 GM TUBE X 2 PO PRN (19:00)
[2018-06-24] MEDS ORDERED: DEXTROSE 50%-WATER SYRINGE 25 GM/50 ML DOSE IV PRN (19:00)
[2018-06-24] MEDS ORDERED: DEXTROSE 50%-WATER SYRINGE 12.5 GM/25 ML DOSE IV PRN (19:00)
[2018-06-24] MEDS ORDERED: GLUCAGON,HUMAN RECOMB 1 MG INJ IM PRN (19:00)
--- NOTE | 2018-06-24 19:30 | PDOC CONSULTATION ---
Consultation Consult Date: 06/24/18 Consult reason:: For peritoneal dialysis. History of Present Illness Admission Date/PCP: 06/24/18 15:42 JULIA GOMEZ PA-C History of Present Illness: JASPREET STAFFORD is a 52 year old female patient with past medical history of ESRD on peritoneal dialysis, Diabetes mellitus,hypertension, obstructive sleep apnea,hyperlipidemia, morbid obesity, diabetes mellitus Was seen earlier today by Dr. Khalil and admitted directly for evaluation of worsening right lower quadrant tender abdominal mass. She has had this slowly growing and exquisitely tender mass over the last 1 month. I saw her earlier this morning at the [facility] clinic and she was quite sensitive to being touched as it was quite painful. She was seeing Dr. Khalil later this afternoon who then admitted her for further evaluation and management. The mass is quite hard and tender. No skin discolorations suggestive of any gangrene or any ulcerations overlying the skin. No complaints of any fever or chills. No precipitating or relieving factors. Her PD fluid is clear. Past Medical History Cardiac Medical History: Reports: CHF-Diastolic, Hyperlipidemia, Hypertension- primary Denies: Coronary Artery Disease, Myocardial Infarction Pulmonary Medical History: Reports: Asthma, Pneumonia, Sleep Apnea Denies: Bronchitis, Chronic Obstructive Pulmonary Disease (COPD) Neurological Medical History: Denies: Seizures Endocrine Medical History: Reports: Diabetes Mellitus Type 1, Diabetes Mellitus Type 2 Complications of Diabetes: Reports: Nephropathy Renal/ Medical History: Reports: End Stage Renal Disease - Peritoneal dialysis, Hypokalemia, Hyperphosphatemia, Secondary Hyperparathyroidism GI Medical History: Reports: Cirrhosis - Scheduled for liver biopsy in [place] by Dr. Dennis on 04/14/2018., Gastroesophageal Reflux Disease Musculoskeltal Medical History: Denies: Arthritis Psychiatric Medical History: Reports: Depression Infectious Medical History: Denies: Methicillin-resist Staph Aureus Hematology Medical History: Reports Anemia of Chronic Kidney Disease Past Surgical History Past Surgical History: Reports: Dialysis Access Surgery PD, Hysterectomy, Tubal Ligation, Other - Peritoneal dialysis catheter placement Social History Smoking Status: Never Smoker Frequency of Alcohol Use: None Hx Recreational Drug Use: No Drugs: None Hx Prescription Drug Abuse: No - Advance Directive Resuscitation Status: Full Code Family History Parental Family History Reviewed: Yes - Negative for ESRD Children Family History Reviewed: No Sibling(s) Family History Reviewed.: No Medication/Allergy Home Medications: Ammonium Lactate [Lac-Hydrin 12% Lotion 225Gm/Bottle] 1 applic TOP DAILYP PRN 06/24/18 Aspirin [Lo-Dose Aspirin EC] 81 mg PO DAILY 06/24/18 Budesonide [Pulmicort 90 mcg Flexhaler] 1 puff IH DAILY 06/24/18 Calcitriol [Rocaltrol 0.25 mcg Capsule] 0.25 mcg PO DAILY 06/24/18 Calcium Acetate [Phoslo 667 mg Capsule] 1,334 mg PO MEALS 06/24/18 Carvedilol [Coreg 25 mg Tablet] 25 mg PO Q12 06/24/18 Cinacalcet HCl [Sensipar 90 mg Tablet] 90 mg PO DAILY 06/24/18 Fluticasone Propionate [Flonase Nasal [place] 50 Mcg/[place] 16 gm] 2 spray NASL BID 06/24/18 Fluticasone/Salmeterol [Advair 250-50 Diskus 14 Dose/Diskus] 2 puff IH BID 06/24/18 Insulin Glargine,Hum.rec.anlog [Toujeo Solostar] 60 units SQ QPM 06/24/18 Insulin Lispro [Humalog Kwikpen U-100] 0 units SQ .PERSLIDINGSCALE 06/24/18 Potassium Chloride [K-Tab ER] 20 meq PO DAILY 06/24/18 Pregabalin [Lyrica 75 mg Capsule] 75 mg PO Q12 06/24/18 Allergies/Adverse Reactions: oxycodone HCl [From Percocet] Allergy (Verified 06/04/18 00:47) Nausea prochlorperazine edisylate [From Compazine] Allergy (Verified 06/04/18 00:47) Hallucinations propoxyphene napsylate [From Darvocet-N 100] Allergy (Verified 06/04/18 00:47) Hallucinations Review of Systems Constitutional: PRESENT: fatigue, weakness. ABSENT: fever(s), headache(s), night sweats Eyes: ABSENT: visual disturbances Ears: ABSENT: hearing changes Nose, Mouth, and Throat: ABSENT: headache(s), mouth pain, sore throat Cardiovascular: PRESENT: dyspnea on exertion, edema. ABSENT: orthropnea, palpitations Gastrointestinal: PRESENT: abdominal pain. ABSENT: coffee ground emesis, diarrhea, dysphagia, heartburn, hematemesis, hematochezia Integumentary: ABSENT: erythema, lesions, pruritus, rash Neurological: ABSENT: abnormal movements, abnormal speech, convulsions, focal weakness, frequent falls, lack of coordination, memory loss Hematologic/Lymphatic: ABSENT: easy bleeding, easy bruising, lymphadenopathy Physical Exam Vital Signs: Temp Pulse Resp BP Pulse Ox 98 18 145/98 H 100 06/24/18 18:44 06/24/18 16:02 06/24/18 16:02 06/24/18 16:02 Intake & Output 06/23/18 06/24/18 06/25/18 06:59 06:59 06:59 Weight 154.221 kg General appearance: PRESENT: no acute distress Eye exam: PRESENT: EOMI, PERRLA. ABSENT: scleral icterus Ear exam: PRESENT: normal external ear exam Mouth exam: PRESENT: moist, neck supple Neck exam: ABSENT: lymphadenopathy, meningismus, tenderness, thyromegaly, tracheal deviation Respiratory exam: PRESENT: clear to auscultation shira. ABSENT: crackles Cardiovascular exam: PRESENT: +S1, +S2, systolic murmur GI/Abdominal exam: PRESENT: firm, mass - She is got a 6 x 5 cm hard tender mass in the right lower quadrant, normal bowel sounds, soft, tenderness - Over the right lower quadrant hard tender mass which is approximately 6 x 5 cm. ABSENT: guarding, organomegaly Extremities exam: PRESENT: +1 edema. ABSENT: calf tenderness Neurological exam: PRESENT: alert, awake, oriented to person, oriented to place, oriented to time Psychiatric exam: PRESENT: appropriate affect Skin exam: ABSENT: cyanosis, erythema, mottled, petechiae, rash Results Laboratory Results: 06/24/18 16:45 06/24/18 16:45 06/24/18 06/24/18 16:45 16:45 WBC 11.0 H RBC 3.63 L Hgb 8.9 L Hct 28.7 L MCV 79 L MCH 24.5 L MCHC 31.0 L RDW 19.3 H Plt Count 232 Seg Neutrophils % 74.9 Lymphocytes % 10.4 L Monocytes % 12.0 Eosinophils % 2.0 Basophils % 0.7 Absolute Neutrophils 8.2 Absolute Lymphocytes 1.1 Absolute Monocytes 1.3 Absolute Eosinophils 0.2 Absolute Basophils 0.1 Sodium 134.5 L Potassium 3.1 L Chloride 87 L Carbon Dioxide 28 Anion Gap 20 H BUN 69 H Creatinine 18.35 H Est GFR ( Amer) 2 L Est GFR (Non-Af Amer) 2 L Glucose 382 H Calcium 10.6 H Magnesium 1.8 Total Bilirubin 0.5 AST 11 L ALT 29 Alkaline Phosphatase 209 H Total Protein 6.7 Albumin 3.3 L Impressions: Chest X-Ray 06/24/18 00:00 IMPRESSION: Low lung volumes. Vascular congestion. Assessment & Plan - Diagnosis (1) ESRD (end stage renal disease) on dialysis Plan: Orders have been placed for continuation of peritoneal dialysis. She is going to be on a 3 L CAPD exchange. Orders were discussed with the treating nurse. Discussed with the nursing supervisor billposting as they do not have at dialysis experienced PD nurse on the second floor. (2) Right lower quadrant abdominal tenderness Qualifiers: Presence of rebound: absent Qualified Code(s): R10.813 - Right lower quadrant abdominal tenderness Is this a current diagnosis for this admission?: Yes Plan: Border right lower quadrant hard tender mass is approximately 6 mm. Clinically to me it looks like she is got a calciphylatic mass more than an abscess. Discussed with Dr. Khalil who is going to do exploratory surgery tomorrow in the OR and determine if it is abscess versus calciphylactic mass. (3) Type 2 diabetes mellitus Is this a current diagnosis for this admission?: Yes Plan: Advised tight blood sugar control. (4) Hypertension Qualifiers: Hypertension type: essential hypertension Qualified Code(s): I10 - Essential (primary) hypertension Plan: Monitor. Titrate medications accordingly. (5) Morbid obesity with BMI of 40.0-44.9, adult Is this a current diagnosis for this admission?: Yes Plan: Status quo. She is got a large pannus of the abdominal roberts. (6) ORLIN (obstructive sleep apnea) Is this a current diagnosis for this admission?: Yes Plan: For CPAP.
[2018-06-24] MEDS: AMPICILLIN SODIUM/SULBACTAM NA 3 GM in NORMAL SALINE 100 ML IV SCH (19:57)
[2018-06-24] MEDS ORDERED: VANCOMYCIN HCL 1,500 MG in DEXTROSE 5%-WATER 250 ML IV ONE (20:00)
[2018-06-24] MEDS ORDERED: MAG HYDROX/AL HYDROX/SIMETH SUSP 30 ML UDCUP PO PRN (20:20)
[2018-06-24] MEDS ORDERED: NITROGLYCERIN 0.4 MG/TAB 25 TAB/BOTTLE SL PRN (20:20)
[2018-06-24] MEDS ORDERED: LOPERAMIDE HCL 2 MG CAPSULE PO PRN (20:20)
[2018-06-24] MEDS ORDERED: HEPARIN SOD (PORCINE) 1,000 UNIT/ML 1 ML VIAL IV PRN (20:20)
[2018-06-24] MEDS: CARVEDILOL 12.5 MG TABLET PO SCH (21:50)
[2018-06-24] MEDS: PREGABALIN 75 MG CAPSULE PO SCH (21:50)
[2018-06-24] MEDS: INSULIN LISPRO 100 UNIT/ML 3 ML VIAL SUBCUT SCH (21:50)
[2018-06-24] MEDS: SEVELAMER HCL 800 MG TABLET PO SCH (21:51)
[2018-06-24] MEDS ORDERED: INSULIN GLARGINE HUM REC ANLOG 60 UNIT SQ SCH (22:00)
[2018-06-24] MEDS ORDERED: (PENDING PHARMACY ID) (Hydralazine Hcl [Hydralazine Hcl] 100 MG) PO SCH (22:00)
[2018-06-24] MEDS ORDERED: INSULIN GLARGINE HUM REC ANLOG 60 UNIT SUBCUT SCH (22:00)
[2018-06-24] MEDS ORDERED: INSULIN GLARGINE,HUM.REC.ANLOG 1,000 UNIT/10 ML VIAL SUBCUT SCH (22:00)
--- NOTE | 2018-06-24 22:06 | RADIOLOGY REPORT (SQ) ---
EXAM DESCRIPTION: US ABDOMEN LIMITED COMPLETED DATE/TME: 06/24/2018 00:00 CLINICAL HISTORY: 52 years, Female, RLQ abscess vs mass COMPARISON: CT 1118. TECHNIQUE: Limited ultrasound in the region of the patient's clinical/palpable abnormality of the right lower quadrant LIMITATIONS: None. FINDINGS: There is a 12 x 4 x 10 cm predominantly echogenic mass associated with the clinical/palpable abnormality. This could reflect lipoma. No abnormal fluid collections. Other etiologies are not excluded IMPRESSION: A slightly echogenic solid mass associated with the clinical/palpable abnormality in the right lower quadrant. This could reflect lipoma, however other etiologies are not excluded. Clinical follow-up recommended. copyright 2010 [employer]- All Rights Reserved
--- NOTE | 2018-06-24 22:29 | EKG REPORT ---
SEVERITY:- ABNORMAL ECG - SINUS TACHYCARDIA VENTRICULAR PREMATURE COMPLEX NONSPECIFIC INTRAVENTRICULAR CONDUCTION DELAY LVH WITH SECONDARY REPOLARIZATION ABNORMALITY : Confirmed by: Dorothea Wadsworth MD 24-Jun-2018 22:29:16
[2018-06-25] MEDS ORDERED: 1/2 NORMAL SALINE 1,000 ML IV PRN
[2018-06-25 01:21] LABS: FLUID APPEARANCE CLEAR; FLUID COLOR LIGHT YELLOW; FLUID SOURCE ABDOMEN; FLUID TYPE PERITONEAL; FLUID VISCOSITY SLIGHTLY VISCOUS
--- NOTE | 2018-06-25 07:32 | PDOC PROGRESS REPORT ---
Subjective Progress Note for:: 06/25/18 Subjective:: Is a 52-year-old morbidly obese female with renal failure and a large right lower quadrant mass like lesion. She reports extreme amounts of tenderness to palpation. The mass has been growing for the last several weeks. She does report some shortness of breath this morning, but it is improved after oxygen administration. She denies chest pain, headache, dizziness, orthostasis, nausea, vomiting, melena, hematochezia. She does report right lower quadrant pain in her pannus. Reason For Visit: ABDOMINAL WALL ABSCESS Physical Exam Vital Signs: Temp Pulse Resp BP Pulse Ox 98.1 F 77 16 122/65 100 06/25/18 05:15 06/25/18 05:22 06/25/18 05:15 06/25/18 05:22 06/25/18 05:15 Intake & Output 06/24/18 06/25/18 06/26/18 06:59 06:59 06:59 Intake Total 5350 Output Total 5500 Balance -150 Weight 165.6 kg General appearance: PRESENT: cooperative, morbidly obese Head exam: PRESENT: atraumatic, normocephalic Eye exam: PRESENT: EOMI, PERRLA. ABSENT: scleral icterus Mouth exam: PRESENT: moist, neck supple Neck exam: ABSENT: meningismus, tenderness, thyromegaly, tracheal deviation Respiratory exam: PRESENT: tachypnea - Mild Cardiovascular exam: PRESENT: RRR Pulses: PRESENT: normal radial pulses GI/Abdominal exam: PRESENT: other - Approximately 10 cm mass in the subcutaneous tissue of the right lower quadrant pannus. Extremely tender to palpation. Extremities exam: ABSENT: clubbing Musculoskeletal exam: ABSENT: deformity Neurological exam: PRESENT: alert, awake, oriented to person, oriented to place Psychiatric exam: ABSENT: agitated, anxious, depressed Skin exam: ABSENT: cyanosis, erythema, jaundice Results Laboratory Results: 06/24/18 16:45 06/24/18 16:45 06/24/18 06/24/18 06/24/18 16:45 16:45 23:55 WBC 11.0 H RBC 3.63 L Hgb 8.9 L Hct 28.7 L MCV 79 L MCH 24.5 L MCHC 31.0 L RDW 19.3 H Plt Count 232 Seg Neutrophils % 74.9 Lymphocytes % 10.4 L Monocytes % 12.0 Eosinophils % 2.0 Basophils % 0.7 Absolute Neutrophils 8.2 Absolute Lymphocytes 1.1 Absolute Monocytes 1.3 Absolute Eosinophils 0.2 Absolute Basophils 0.1 Sodium 134.5 L Potassium 3.1 L Chloride 87 L Carbon Dioxide 28 Anion Gap 20 H BUN 69 H Creatinine 18.35 H Est GFR ( Amer) 2 L Est GFR (Non-Af Amer) 2 L Glucose 382 H Calcium 10.6 H Magnesium 1.8 Total Bilirubin 0.5 AST 11 L ALT 29 Alkaline Phosphatase 209 H Total Protein 6.7 Albumin 3.3 L Fluid Type PERITONEAL Fluid Source ABDOMEN Fluid Color LIGHT YELLOW Fluid Appearance CLEAR Fluid Viscosity SLIGHTLY VISCOUS Fluid WBC 2 Fluid RBC 1 Impressions: Abdomen Ultrasound 06/24/18 00:00 IMPRESSION: A slightly echogenic solid mass associated with the clinical/palpable abnormality in the right lower quadrant. This could reflect lipoma, however other etiologies are not excluded. Clinical follow-up recommended. copyright 2010 [employer]- All Rights Reserved Chest X-Ray 06/24/18 00:00 IMPRESSION: Low lung volumes. Vascular congestion. Assessment & Plan - Diagnosis (1) Right lower quadrant abdominal tenderness Qualifiers: Presence of rebound: absent Qualified Code(s): R10.813 - Right lower quadrant abdominal tenderness Is this a current diagnosis for this admission?: Yes (2) Abdominal wall abscess Is this a current diagnosis for this admission?: Yes - Plan Summary Plan Summary: This is a 52-year-old female with a growing mass in the right lower quadrant subcutaneous tissue of her pannus. There is tenderness to palpation. D ifferential includes infection versus tumor versus calciphylaxis. Plan for incision with possible drainage of any infectious cause or biopsy to confirm diagnoses. This is been discussed at length with the patient and her family. Risks/benefits discussed, informed consent obtained, and all questions answered.
[2018-06-25 07:38] LABS: ABSOLUTE BASOPHILS # (AUTO) 0.1 10^3/uL (0.0-0.2); ABSOLUTE EOSINOPHILS # (AUTO) 0.2 10^3/uL (0.0-0.6); ABSOLUTE LYMPHOCYTES (AUTO) 1.4 10^3/uL (0.5-4.7); ABSOLUTE MONOCYTES (AUTO) 1.5 10^3/uL (0.1-1.4); ABSOLUTE NEUT (AUTO) 8.8 10^3/uL (1.7-8.2); BASOPHILS % (AUTO) 0.8 % (0-2); EOSINOPHILS % (AUTO) 1.9 % (0-6); HEMOGLOBIN 8.4 g/dL (12.0-15.5); LYMPHOCYTES % (AUTO) 11.5 % (13-45); MEAN CORPUSCULAR HEMOGLOBIN 24.3 pg (27.0-33.4); MEAN CORPUSCULAR HGB CONC 31.2 g/dL (32.0-36.0); MEAN CORPUSCULAR VOLUME 78 fl (80-97); MONOCYTES % (AUTO) 12.3 % (3-13); PLATELET COUNT 217 10^3/uL (150-450); RED BLOOD COUNT 3.46 10^6/uL (3.72-5.28); SEGMENTED NEUTROPHILS % (AUTO) 73.5 % (42-78); TOTAL CELLS COUNTED % (AUTO) 100 %
[2018-06-25 08:05] LABS: BLOOD UREA NITROGEN 72 mg/dL (7-20); CALCIUM 10.5 mg/dL (8.4-10.2); GLUCOSE 254 mg/dL (75-110); PHOSPHORUS 7.1 mg/dL (2.5-4.5); POTASSIUM 3.1 mmol/L (3.6-5.0)
[2018-06-25 08:28] LABS: CARBON DIOXIDE 26 mmol/L (22-30); CHLORIDE 89 mmol/L (98-107)
[2018-06-25 08:36] LABS: ANION GAP 21 (5-19)
--- NOTE | 2018-06-25 08:53 | RADIOLOGY REPORT (SQ) ---
EXAM DESCRIPTION: CHEST SINGLE VIEW COMPLETED DATE/TIME: 06/25/2018 8:31 am REASON FOR STUDY: repeat to be cleared before surgery COMPARISON: 06/24/2018 EXAM PARAMETERS: NUMBER OF VIEWS: One view. TECHNIQUE: Single frontal radiographic view of the chest acquired. RADIATION DOSE: NA LIMITATIONS: None. FINDINGS: LUNGS AND PLEURA: Low lung volumes. No focal airspace disease, pleural effusion or pneumo thorax. MEDIASTINUM AND HILAR STRUCTURES: No masses. Contour normal. HEART AND VASCULAR STRUCTURES: Normal heart size. Aortic atherosclerosis. BONES: No acute findings. HARDWARE: None in the chest. OTHER: No other significant finding. IMPRESSION: Low lung volumes without other evidence of acute cardiopulmonary process. TECHNICAL DOCUMENTATION: JOB ID: [id number] [employer]- All Rights Reserved Reading location - IP/workstation name: [email or web address]
[2018-06-25] MEDS ORDERED: CINACALCET HCL 90 MG PO SCH (10:00)
[2018-06-25] MEDS ORDERED: (PENDING PHARMACY ID) (Potassium Chloride [K-Tab Er] 20 MEQ) PO SCH (10:00)
[2018-06-25] MEDS ORDERED: LIDOCAINE 1% INJ-PF (10 MG/ML) 30 ML SDV ONE (10:18)
[2018-06-25] MEDS ORDERED: BUPIVACAINE HCL 0.25 % INJ/PF (2.5 MG/1 ML) 30 ML VIAL ONE (10:18)
[2018-06-25] MEDS ORDERED: FENTANYL CITRATE INJ/PF 100 MCG/2 ML AMPUL ONE (10:19)
[2018-06-25] MEDS ORDERED: MIDAZOLAM 2 MG/2 ML INJ ONE (10:19)
[2018-06-25] MEDS ORDERED: PROPOFOL INJ 200 MG/20 ML VIAL IV ONE (10:20)
[2018-06-25] MEDS ORDERED: LIDOCAINE 2% INJ-PF (20 MG/ML) 10 ML AMPUL ONE (10:28)
[2018-06-25] MEDS ORDERED: ONDANSETRON HCL INJ/PF 4 MG/2 ML SDV IV PRN (11:47)
[2018-06-25] MEDS ORDERED: FENTANYL CITRATE INJ/PF 100 MCG/2 ML AMPUL IV PRN ×3 (11:47)
[2018-06-25] MEDS ORDERED: DIPHENHYDRAMINE HCL 50 MG/ML VIAL IV PRN (11:47)
[2018-06-25] MEDS: INSULIN LISPRO 100 UNIT/ML 3 ML VIAL SUBCUT SCH ×3 (13:08→22:03)
[2018-06-25] MEDS: CALCIUM ACETATE 667 MG CAPSULE PO SCH ×3 (13:08→18:17)
[2018-06-25] MEDS: SEVELAMER HCL 800 MG TABLET PO SCH ×4 (13:09→22:02)
[2018-06-25] MEDS: MORPHINE SULFATE 10 MG/ML INJ IV PRN ×2 (13:15→19:27)
[2018-06-25] MEDS: PREGABALIN 75 MG CAPSULE PO SCH ×2 (13:16→21:55)
[2018-06-25] MEDS: CALCITRIOL 0.25 MCG CAPSULE PO SCH (13:17)
[2018-06-25] MEDS: POTASSIUM CHLORIDE 10 MEQ CAPSULE.ER PO SCH (13:17)
[2018-06-25] MEDS: CARVEDILOL 12.5 MG TABLET PO SCH ×2 (13:17→21:54)
[2018-06-25] MEDS: FLUTICASONE/VILANTEROL 200-25 MCG/DOSE IH SCH (13:18)
[2018-06-25] MEDS: CINACALCET HCL 30 MG TABLET PO SCH (13:19)
--- NOTE | 2018-06-25 13:38 | Operative Report ---
Nonrecallable Operative Report DATE OF SURGERY: 06/25/18 PREOPERATIVE DIAGNOSIS: 1. Right lower quadrant abdominal wall mass. 2. Right buttock abscess POSTOPERATIVE DIAGNOSIS: Same as above OPERATION: 1. Incisional biopsy of right lower quadrant subcutaneous mass. 2. Incision and drainage of right buttock abscess SURGEON: MARTHA LI ANESTHESIA: LMAC TISSUE REMOVED OR ALTERED: 1. Wound cultures. 2. Incisional biopsy of right lower quadrant abdominal wall subcutaneous mass COMPLICATIONS: None apparent ESTIMATED BLOOD LOSS: Minimal PROCEDURE: Drains/implants: Surgicel and Kerlix packing to right buttock abscess. Procedure in detail: After informed consent was obtained, the patient was brought into the operating room and laid in the supine position. The area of the right lower quadrant was prepped and draped in a normal sterile fashion. The area of maximal induration was identified. 1% lidocaine was used to inject the subcutaneous tissues. A 2 cm incision was created over the mass like lesion. Dissection was carried to the indurated area. There is no purulence obviously identified. Cultures were taken. Incisional biopsies were then performed, ensuring enough tissue was sent to pathology for an adequate diagnosis. The mass was situated within the subcutaneous fatty tissue. Once this was completed, hemostasis was achieved using electrocautery. The skin was then closed using 3-0 Vicryl subcuticular interrupted sutures. A dressing was placed, and this portion of the procedure was concluded. Attention was turned to the right buttock abscess. The patient was placed in frog-leg position an area on the right inferior buttock was easily identified. There was an abscess, approximately 2 cm in diameter. There is purulent material present. An elliptical incision was created with a 15 blade scalpel, ellipsing out the roof of the abscess. This portion of the skin was debrided away sharply. The abscess cavity was entered. There was a large amount of purulent material. The wound was irrigated and cleaned vigorously. Hemostasis was achieved using electrocautery. Once adequate hemostasis was ensured, Surgicel was packed into the wound, as well as Kerlix. Dressings were then placed, and the procedure was concluded. All sponge, instrument, and needle counts were correct x2. Condition: Stable.
--- NOTE | 2018-06-25 16:43 | PDOC PROGRESS REPORT ---
Subjective Progress Note for:: 06/25/18 Subjective:: Patient just arrived from or after she incision and drainage and debridement. I seen her also while she is getting peritoneal dialysis. Patient has been covered with Unasyn and vancomycin. Reason For Visit: ABDOMINAL WALL ABSCESS Physical Exam Vital Signs: Temp Pulse Resp BP Pulse Ox 98.6 F 74 20 139/57 H 99 06/25/18 12:39 06/25/18 12:39 06/25/18 12:39 06/25/18 12:39 06/25/18 12:39 Intake & Output 06/24/18 06/25/18 06/26/18 06:59 06:59 06:59 Intake Total 5350 850 Output Total 5500 25 Balance -150 825 Weight 165.6 kg General appearance: PRESENT: no acute distress Head exam: PRESENT: atraumatic Neck exam: ABSENT: carotid bruit, JVD, lymphadenopathy, thyromegaly Respiratory exam: PRESENT: clear to auscultation shira. ABSENT: rales, rhonchi, wheezes Cardiovascular exam: PRESENT: RRR. ABSENT: diastolic murmur, rubs, systolic murmur GI/Abdominal exam: PRESENT: other - Right lower quadrant dressing. Results Laboratory Results: 06/25/18 06:27 06/25/18 06:27 06/24/18 06/24/18 06/24/18 16:45 16:45 23:55 WBC 11.0 H RBC 3.63 L Hgb 8.9 L Hct 28.7 L MCV 79 L MCH 24.5 L MCHC 31.0 L RDW 19.3 H Plt Count 232 Seg Neutrophils % 74.9 Lymphocytes % 10.4 L Monocytes % 12.0 Eosinophils % 2.0 Basophils % 0.7 Absolute Neutrophils 8.2 Absolute Lymphocytes 1.1 Absolute Monocytes 1.3 Absolute Eosinophils 0.2 Absolute Basophils 0.1 Sodium 134.5 L Potassium 3.1 L Chloride 87 L Carbon Dioxide 28 Anion Gap 20 H BUN 69 H Creatinine 18.35 H Est GFR ( Amer) 2 L Est GFR (Non-Af Amer) 2 L Glucose 382 H Calcium 10.6 H Phosphorus Magnesium 1.8 Total Bilirubin 0.5 AST 11 L ALT 29 Alkaline Phosphatase 209 H Total Protein 6.7 Albumin 3.3 L PTH Intact Fluid Type PERITONEAL Fluid Source ABDOMEN Fluid Color LIGHT YELLOW Fluid Appearance CLEAR Fluid Viscosity SLIGHTLY VISCOUS Fluid WBC 2 Fluid RBC 1 06/25/18 06/25/18 06/25/18 06:27 06:27 06:27 WBC 12.0 H RBC 3.46 L Hgb 8.4 L Hct 27.0 L MCV 78 L MCH 24.3 L MCHC 31.2 L RDW 19.0 H Plt Count 217 Seg Neutrophils % 73.5 Lymphocytes % 11.5 L Monocytes % 12.3 Eosinophils % 1.9 Basophils % 0.8 Absolute Neutrophils 8.8 H Absolute Lymphocytes 1.4 Absolute Monocytes 1.5 H Absolute Eosinophils 0.2 Absolute Basophils 0.1 Sodium 136.0 L Potassium 3.1 L Chloride 89 L Carbon Dioxide 26 Anion Gap 21 H BUN 72 H Creatinine 18.59 H Est GFR ( Amer) 2 L Est GFR (Non-Af Amer) 2 L Glucose 254 H Calcium 10.5 H Phosphorus 7.1 H Magnesium Total Bilirubin AST ALT Alkaline Phosphatase Total Protein Albumin PTH Intact 1108.0 H Fluid Type Fluid Source Fluid Color Fluid Appearance Fluid Viscosity Fluid WBC Fluid RBC Impressions: Abdomen Ultrasound 06/24/18 00:00 IMPRESSION: A slightly echogenic solid mass associated with the clinical/palpable abnormality in the right lower quadrant. This could reflect lipoma, however other etiologies are not excluded. Clinical follow-up recommended. copyright 2011 [employer]- All Rights Reserved Chest X-Ray 06/25/18 06:00 IMPRESSION: Low lung volumes without other evidence of acute cardiopulmonary process. Assessment and Plan - Diagnosis (1) Abdominal wall abscess Is this a current diagnosis for this admission?: Yes Plan: Status post incision, drainage and debridement. We will de-escalate her antibiotics based on her clinical response and culture and sensitivity pattern. (2) Type 2 diabetes mellitus Is this a current diagnosis for this admission?: Yes Plan: I would review and reconcile her medications in the meantime we will put her on sliding scale. (3) Hypertension Qualifiers: Hypertension type: essential hypertension Qualified Code(s): I10 - Essential (primary) hypertension Is this a current diagnosis for this admission?: Yes Plan: Continue her home medication. (4) Hyperlipidemia Qualifiers: Hyperlipidemia type: unspecified Qualified Code(s): E78.5 - Hyperlipidemia, unspecified Is this a current diagnosis for this admission?: Yes Plan: Continue her home medication (5) ORLIN (obstructive sleep apnea) Is this a current diagnosis for this admission?: Yes Plan: We will put her on CPAP machine (6) Chronic renal failure, stage 4 (severe) Is this a current diagnosis for this admission?: Yes Plan: We will avoid nephrotoxic agents. Patient needs follow-up with her primary platen builder up. (7) Morbid obesity with BMI of 40.0-44.9, adult Is this a current diagnosis for this admission?: Yes Plan: Lifestyle modification advised.
[2018-06-25] MEDS ORDERED: VANCOMYCIN HCL 750 MG in DEXTROSE 5%-WATER 250 ML IV SCH (18:00)
[2018-06-25] MEDS: AMPICILLIN SODIUM/SULBACTAM NA 3 GM in NORMAL SALINE 100 ML IV SCH (18:21)
[2018-06-25] MEDS ORDERED: INSULIN GLARGINE,HUM.REC.ANLOG 1,000 UNIT/10 ML VIAL SUBCUT SCH (22:00)
[2018-06-26] MEDS: ACETAMINOPHEN 325 MG TABLET PO PRN ×2 (05:16→10:30)
[2018-06-26] MEDS: SEVELAMER HCL 800 MG TABLET PO SCH ×3 (08:07→18:53)
[2018-06-26] MEDS: INSULIN LISPRO 100 UNIT/ML 3 ML VIAL SUBCUT SCH ×3 (08:07→17:45)
[2018-06-26] MEDS: CALCIUM ACETATE 667 MG CAPSULE PO SCH ×3 (08:07→17:28)
[2018-06-26] MEDS: PREGABALIN 75 MG CAPSULE PO SCH (10:21)
[2018-06-26] MEDS: POTASSIUM CHLORIDE 10 MEQ CAPSULE.ER PO SCH (10:21)
[2018-06-26] MEDS: CALCITRIOL 0.25 MCG CAPSULE PO SCH (10:21)
[2018-06-26] MEDS: FLUTICASONE/VILANTEROL 200-25 MCG/DOSE IH SCH (10:23)
[2018-06-26] MEDS: CARVEDILOL 12.5 MG TABLET PO SCH (10:23)
[2018-06-26] MEDS: CINACALCET HCL 30 MG TABLET PO SCH (10:24)
[2018-06-26 15:31] VITALS: BP 120/50
--- NOTE | 2018-06-26 15:41 | PDOC PROGRESS REPORT ---
Subjective Progress Note for:: 06/26/18 Subjective:: Patient seen while lying on her left side. No new complaint. Reason For Visit: ABDOMINAL WALL ABSCESS Physical Exam Vital Signs: Temp Pulse Resp BP Pulse Ox 98.2 F 68 18 120/50 L 100 06/26/18 15:10 06/26/18 15:10 06/26/18 15:10 06/26/18 15:10 06/26/18 15:10 Intake & Output 06/25/18 06/26/18 06/27/18 06:59 06:59 06:59 Intake Total 5350 18151 2750 Output Total 5500 7325 3000 Balance -150 3195 -250 Weight 165.6 kg 170.2 kg General appearance: PRESENT: no acute distress, morbidly obese Neck exam: ABSENT: carotid bruit, JVD, lymphadenopathy, thyromegaly Respiratory exam: PRESENT: clear to auscultation shira. ABSENT: rales, rhonchi, wheezes Neurological exam: PRESENT: alert, awake, oriented to time, oriented to situation Results Laboratory Results: 06/25/18 06:27 06/25/18 06:27 Impressions: Abdomen Ultrasound 06/24/18 00:00 IMPRESSION: A slightly echogenic solid mass associated with the clinical/palpable abnormality in the right lower quadrant. This could reflect lipoma, however other etiologies are not excluded. Clinical follow-up recommended. copyright 2011 [employer]- All Rights Reserved Chest X-Ray 06/25/18 06:00 IMPRESSION: Low lung volumes without other evidence of acute cardiopulmonary process. Assessment and Plan - Diagnosis (1) Abscess of right buttock Is this a current diagnosis for this admission?: Yes Plan: Status post incision and drainage. Continue antibiotics. (2) Abdominal wall mass of right lower quadrant Is this a current diagnosis for this admission?: Yes Plan: Status post biopsy. (3) Type 2 diabetes mellitus Is this a current diagnosis for this admission?: Yes Plan: I would review and reconcile her medications in the meantime we will put her on sliding scale. (4) Hypertension Qualifiers: Hypertension type: essential hypertension Qualified Code(s): I10 - Essential (primary) hypertension Is this a current diagnosis for this admission?: Yes Plan: Continue her home medication. (5) Hyperlipidemia Qualifiers: Hyperlipidemia type: unspecified Qualified Code(s): E78.5 - Hyperlipidemia, unspecified Is this a current diagnosis for this admission?: Yes Plan: Continue her home medication (6) ORLIN (obstructive sleep apnea) Is this a current diagnosis for this admission?: Yes Plan: We will put her on CPAP machine (7) Chronic renal failure, stage 4 (severe) Is this a current diagnosis for this admission?: Yes Plan: We will avoid nephrotoxic agents. Patient needs follow-up with her primary medicinal plant picker. (8) Morbid obesity with BMI of 40.0-44.9, adult Is this a current diagnosis for this admission?: Yes
--- NOTE | 2018-06-26 17:23 | PDOC DISCHARGE SUMMARY ---
General - Admit/Disc Date/PCP Admission Date/Primary Care Provider: 06/24/18 15:42 JULIA GOMEZ PA-C Discharge Date: 06/26/18 - Discharge Diagnosis (1) Right lower quadrant abdominal tenderness Is this a current diagnosis for this admission?: Yes (2) Abscess of right buttock Is this a current diagnosis for this admission?: Yes - Additional Information Resuscitation Status: Full Code Discharge Diet: As Tolerated Discharge Activity: Balance Activity w/Rest Home Medications: Ammonium Lactate [Lac-Hydrin 12% Lotion 225Gm/Bottle] 1 applic TOP DAILYP PRN 06/24/18 Aspirin [Lo-Dose Aspirin EC] 81 mg PO DAILY 06/24/18 Budesonide [Pulmicort 90 mcg Flexhaler] 1 puff IH DAILY 06/24/18 Calcitriol [Rocaltrol 0.25 mcg Capsule] 0.25 mcg PO DAILY 06/24/18 Calcium Acetate [Phoslo 667 mg Capsule] 1,334 mg PO MEALS 06/24/18 Carvedilol [Coreg 25 mg Tablet] 25 mg PO Q12 06/24/18 Cinacalcet HCl [Sensipar 90 mg Tablet] 90 mg PO DAILY 06/24/18 Fluticasone Propionate [Flonase Nasal [place] 50 Mcg/[place] 16 gm] 2 spray NASL BID 06/24/18 Fluticasone/Salmeterol [Advair 250-50 Diskus 14 Dose/Diskus] 2 puff IH BID 06/24/18 Insulin Glargine,Hum.rec.anlog [Tou[place]udmilao Solostar] 60 units SQ QPM 06/24/18 Insulin Lispro [Humalog Kwikpen U-100] 0 units SQ .PERSLIDINGSCALE 06/24/18 Potassium Chloride [K-Tab ER] 20 meq PO DAILY 06/24/18 Pregabalin [Lyrica 75 mg Capsule] 75 mg PO Q12 06/24/18 History of Present Illness History of Present Illness: JASPREET STAFFORD is a 52 year old female with a one-month history of a growing mass in the right lower quadrant abdominal pannus. Patient reports that it started as a small "bump" and has grown into a mass the size of a baseball. It is excessively tender to palpation. She denies any history of trauma. She denies fevers or chills. She denies a history of injections in this area. There has been no purulent drainage. Nothing makes her pain better. Palpation makes it worse. Her pain is sharp/stabbing and rates 8 out of 10. Hospital Course Hospital Course: The patient was admitted to the hospital and seen by nephrology and the hospitalist service. She was taken to the operating room where incision and drainage of a right buttock abscess was performed, as well as biopsy of her right lower quadrant abdominal wall mass. 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 I will confer with pathology for a final diagnosis. The patient is doing well. She is ambulating and tolerating a diet. At this point it is felt that she has reached maximal hospital benefit and is fit for discharge. Physical Exam Vital Signs: Temp Pulse Resp BP Pulse Ox 98.2 F 68 18 120/50 L 100 06/26/18 15:10 06/26/18 15:10 06/26/18 15:10 06/26/18 15:10 06/26/18 15:10 Intake & Output 06/25/18 06/26/18 06/27/18 06:59 06:59 06:59 Intake Total 5350 02562 2750 Output Total 5500 7325 3000 Balance -150 3195 -250 Weight 165.6 kg 170.2 kg Results Laboratory Results: 06/25/18 06:27 06/25/18 06:27 Impressions: Abdomen Ultrasound 06/24/18 00:00 IMPRESSION: A slightly echogenic solid mass associated with the clinical/palpable abnormality in the right lower quadrant. This could reflect lipoma, however other etiologies are not excluded. Clinical follow-up recommended. copyright 2011 [employer]- All Rights Reserved Chest X-Ray 06/25/18 06:00 IMPRESSION: Low lung volumes without other evidence of acute cardiopulmonary process. Qualifiers - * PATIENT BEING DISCHARGED WITH ANY OF THE FOLLOWING DIAGNOSIS: No Acute Heart Failure Is this a Heart Failure Patient?: Yes Plan Discharge Plan: Discharge home. Diet as tolerated. Activity: Nonstrenuous. Remove dressings and shower normally. Replace dry dressings daily and as needed. [place] 5/325 mg p.o. every 6 hours as needed for pain. Bactrim DS 2 tabs p.o. twice daily x7 days. Follow-up with me in 7 to 10 days in the office. Time Spent: Less than 30 Minutes
[2018-06-26] MEDS: AMPICILLIN SODIUM/SULBACTAM NA 3 GM in NORMAL SALINE 100 ML IV SCH (18:53)
--- NOTE | 2018-06-26 19:43 | EKG REPORT ---
SEVERITY:- ABNORMAL ECG - SINUS RHYTHM NONSPECIFIC INTRAVENTRICULAR CONDUCTION DELAY LEFT VENTRICULAR HYPERTROPHY : Confirmed by: Dorothea Wadsworth MD 26-Jun-2018 19:42:27
== END 2018-06-26 18:25 | disposition home or self-care (01) ==
LOC: 2N 15:42 → 3S 18:14
PROVIDERS: ADMIT Surgery; ATTEND Surgery
PROC: 0JB80ZZ Excision of Abdomen Subcutaneous Tissue and Fascia, Open Approach (ICD-10-PCS; 2018-06-25)
PROC: 0H98XZZ Drainage of Buttock Skin, External Approach (ICD-10-PCS; principal; 2018-06-25 11:30)
DX: L02.211 Cutaneous abscess of abdominal wall (principal); R10.813 Right lower quadrant abdominal tenderness; L02.31 Cutaneous abscess of buttock; M79.89 Other specified soft tissue disorders; I12.9 Hypertensive chronic kidney disease with stage 1 through stage 4 chronic kidney disease, or unspecified chronic kidney disease; E11.22 Type 2 diabetes mellitus with diabetic chronic kidney disease; E11.21 Type 2 diabetes mellitus with diabetic nephropathy; I50.30 Unspecified diastolic (congestive) heart failure; N18.4 Chronic kidney disease, stage 4 (severe); E66.01 Morbid (severe) obesity due to excess calories; G47.33 Obstructive sleep apnea (adult) (pediatric); E78.5 Hyperlipidemia, unspecified; R06.02 Shortness of breath; J45.909 Unspecified asthma, uncomplicated; Z68.41 Body mass index [BMI] 40.0-44.9, adult; Z99.2 Dependence on renal dialysis; Z79.899 Other long term (current) drug therapy; Z79.82 Long term (current) use of aspirin; Z79.4 Long term (current) use of insulin; Z90.710 Acquired absence of both cervix and uterus; Z98.51 Tubal ligation status; Z82.49 Family history of ischemic heart disease and other diseases of the circulatory system
CPT/HCPCS: 10060; 11106; 36415 ×2; 87040 ×2; 87070 ×3; 87205 ×2; 82962 ×3; 83735; 84100; 85025 ×2; 89050; 87075 ×2; 87077 ×2; 80048; 80053; 87186 ×2; 83970; 88304 ×2; 71045 ×2; 76705; 93005 ×2; 93010 ×2; G0378 ×3; G0379; A9270 ×20; J2250; J3490 ×4; J3010; J0295 ×2; J2270; J7060; J7050 ×2; J2704; J3370; 300; 90945; J1815

== ENCOUNTER 2018-07-05 10:49 | Emergency (ER) | payer MEDICARE, MEDICAID ==
--- NOTE | 2018-07-05 11:01 | ER Document Report ---
ED Medical Screen (RME) - General Chief Complaint: Nausea/Vomiting Stated Complaint: VOMITING,LIGHT HEADED,DIZZY Time Seen by Provider: 07/05/18 10:55 Primary Care Provider: JULIA GOMEZ PA-C [Primary Care Provider] - Follow up as needed Mode of Arrival: Wheelchair Information source: Patient Notes: 52-year-old female presented to ED for complaint of nausea vomiting lightheaded weakness cough cannot keep any food down due to vomiting. She states she is a diabetic kidney failure on peritoneal dialysis CHF and COPD. She is alert oriented respirations regular and unlabored at this time. I have greeted and performed a rapid initial assessment of this patient. A comprehensive ED assessment and evaluation of the patient, analysis of test results and completion of medical decision making process will be conducted by an additional ED providers. Dictation of this chart was performed using voice recognition software; therefore, there may be some unintended grammatical errors. TRAVEL OUTSIDE OF THE [place] IN LAST 30 DAYS: No - Related Data Allergies/Adverse Reactions: oxycodone HCl [From Percocet] Allergy (Verified 07/05/18 10:50) Nausea prochlorperazine edisylate [From Compazine] Allergy (Verified 07/05/18 10:50) Hallucinations propoxyphene napsylate [From Darvocet-N 100] Allergy (Verified 07/05/18 10:50) Hallucinations Past Medical History - Social History Family history: Reviewed & Not Pertinent - Past Medical History Cardiac Medical History: Reports: Hx Congestive Heart Failure, Hx Hypercholesterolemia, Hx Hypertension Denies: Hx Coronary Artery Disease, Hx Heart Attack Pulmonary Medical History: Reports: Hx Asthma, Hx Pneumonia, Hx Sleep Apnea Denies: Hx Bronchitis, Hx COPD Neurological Medical History: Denies: Hx Cerebrovascular Accident, Hx Seizures Endocrine Medical History: Reports: Hx Diabetes Mellitus Type 1, Hx Diabetes Mellitus Type 2 Renal/ Medical History: Reports: Hx End Stage Renal Disease - Peritoneal dialysis, Hx Kidney Stones, Hx Peritoneal Dialysis GI Medical History: Reports: Hx Cirrhosis - Scheduled for liver biopsy in [place] by Dr. Dennis on 04/14/2018., Hx Gastroesophageal Reflux Disease Musculoskeltal Medical History: Denies Hx Arthritis Psychiatric Medical History: Reports: Hx Depression Infectious Medical History: Denies: Hx MRSA Past Surgical History: Reports: Hx Abdominal Surgery - peritoneal dialysis fistula, Hx Hysterectomy, Hx Tubal Ligation, Other - Peritoneal dialysis catheter placement - Immunizations Immunizations up to date: No Hx Diphtheria, Pertussis, Tetanus Vaccination: Yes History of Influenza Vaccine for 11/2016 - 04/2017 Season: Yes Influenza Administration Date for 11/2016 - 04/2017 Season: 11/18/17 Doctor's Discharge - Discharge Referrals: JULIA GOMEZ PA-C [Primary Care Provider] - Follow up as needed
[2018-07-05] MEDS ORDERED: ONDANSETRON 4 MG TAB.RAPDIS PO ONE (11:02)
--- NOTE | 2018-07-05 11:48 | RADIOLOGY REPORT (SQ) ---
EXAM DESCRIPTION: CHEST 2 VIEWS COMPLETED DATE/TIME: 07/05/2018 11:33 am REASON FOR STUDY: short of breath cough COMPARISON: 06/25/2018. EXAM PARAMETERS: NUMBER OF VIEWS: two views TECHNIQUE: Digital Frontal and Lateral radiographic views of the chest acquired. RADIATION DOSE: NA LIMITATIONS: none FINDINGS: LUNGS AND PLEURA: Mild elevation of the right hemidiaphragm. Questionable faint atelectas is or infiltrate in the left lung base behind the cardiac silhouette. No pleural effusion. MEDIASTINUM AND HILAR STRUCTURES: No masses or contour abnormalities. HEART AND VASCULAR STRUCTURES: Cardiomegaly. BONES: No acute findings. Degenerative changes in the spine. HARDWARE: None in the chest. OTHER: No other significant finding. IMPRESSION: CARDIOMEGALY. MILD ELEVATION OF THE RIGHT HEMIDIAPHRAGM. POSSIBLE FAINT ATELECTASIS OR INFILTRATE IN THE LEFT LUNG BASE BEHIND THE CARDIAC SILHOUETTE. TECHNICAL DOCUMENTATION: JOB ID: [id number] [employer]- All Rights Reserved Reading location - IP/workstation name: [email or web address]
[2018-07-05 12:09] LABS: ABSOLUTE BASOPHILS # (AUTO) 0.1 10^3/uL (0.0-0.2); ABSOLUTE EOSINOPHILS # (AUTO) 0.2 10^3/uL (0.0-0.6); ABSOLUTE MONOCYTES (AUTO) 0.9 10^3/uL (0.1-1.4); ABSOLUTE NEUT (AUTO) 5.4 10^3/uL (1.7-8.2); BASOPHILS % (AUTO) 1.2 % (0-2); EOSINOPHILS % (AUTO) 1.9 % (0-6); LYMPHOCYTES % (AUTO) 23.1 % (13-45); MEAN CORPUSCULAR HEMOGLOBIN 24.4 pg (27.0-33.4); MEAN CORPUSCULAR HGB CONC 31.2 g/dL (32.0-36.0); MEAN CORPUSCULAR VOLUME 78 fl (80-97); PLATELET COUNT 312 10^3/uL (150-450); RED BLOOD COUNT 3.71 10^6/uL (3.72-5.28); RED CELL DISTRIBUTION WIDTH 19.1 % (11.5-14.0); SEGMENTED NEUTROPHILS % (AUTO) 62.8 % (42-78); TOTAL CELLS COUNTED % (AUTO) 100 %; WHITE BLOOD COUNT 8.6 10^3/uL (4.0-10.5)
[2018-07-05 12:18] LABS: ALANINE AMINOTRANSFERASE 13 U/L (9-52); ALBUMIN 3.9 g/dL (3.5-5.0); ALKALINE PHOSPHATASE 202 U/L (38-126); ANION GAP 19 (5-19); ASPARTATE AMINO TRANSFERASE 20 U/L (14-36); BILIRUBIN,DIRECT 0.7 mg/dL (0.0-0.4); BILIRUBIN,TOTAL 0.7 mg/dL (0.2-1.3); BLOOD UREA NITROGEN 71 mg/dL (7-20); CALCIUM 10.8 mg/dL (8.4-10.2); CARBON DIOXIDE 31 mmol/L (22-30); CHLORIDE 91 mmol/L (98-107); GLUCOSE 223 mg/dL (75-110); POTASSIUM 3.3 mmol/L (3.6-5.0); SODIUM 140.5 mmol/L (137-145); TOTAL PROTEIN 8.3 g/dL (6.3-8.2)
[2018-07-05 12:27] LABS: CREATINE KINASE MB 1.67 ng/mL (<4.55)
[2018-07-05] MEDS ORDERED: ONDANSETRON HCL INJ/PF 4 MG/2 ML SDV IV ONE (12:33)
[2018-07-05] MEDS ORDERED: MORPHINE SULFATE 10 MG/ML INJ IV ONE (12:35)
--- NOTE | 2018-07-05 12:45 | ER Document Report ---
Entered by KATHY BOLAND SCRIBE 07/05/18 1203 Acting as scribe for:DARLENE BOYKIN MD ED General - General Chief Complaint: Nausea/Vomiting Stated Complaint: VOMITING,LIGHT HEADED,DIZZY Time Seen by Provider: 07/05/18 10:55 Primary Care Provider: JULIA GOMEZ PA-C [Primary Care Provider] - Follow up as needed MARTHA KHALIL MD [ACTIVE STAFF] - 07/07/18 Mode of Arrival: Wheelchair Information source: Patient Notes: Patient is a 52 year old female with hyperlipidemia, obstructive sleep apnea, hypertension, morbid obesity, insulin dependent diabetes and chronic renal failure (peritoneal dialysis) presents to the emergency department complaining of vomiting and a cough onset 3 days ago. Patient states she has post tussive emesis and is unable to hold any solids or fluids down. Patient states when she is not coughing, she is not nauseous. She states her sugars have been running in the 200s. Patient also reports pain and swelling to the RLQ further stating driving over bumps significantly exacerbates the pain. She denies any urine output. Of note, patient recently had an I&D performed by Dr. Delgado on 06/24/18 due to right buttocks abscess and an possible RLQ abdominal wall abscess. According to notes, patients right buttocks had copious purulent discharge that grew Proteus mirabilis bacteria. The abdominal wall mass culture did not grow any organisms. She states she followed up with Dr. Delgado 3 days ago. The patient was prescribed 5 mg [place] No. 10 tablets on 06/26/2018. She still has a few tablets left. She does report that she has not had a bowel movement in 3 days. She does have a problem with constipation and understands that she should have been taking MiraLAX during this time. TRAVEL OUTSIDE OF THE [place] IN LAST 30 DAYS: No - Related Data Allergies/Adverse Reactions: oxycodone HCl [From Percocet] Allergy (Verified 07/05/18 10:50) Nausea prochlorperazine edisylate [From Compazine] Allergy (Verified 07/05/18 10:50) Hallucinations propoxyphene napsylate [From Darvocet-N 100] Allergy (Verified 07/05/18 10:50) Hallucinations Past Medical History - General Information source: Patient - Social History Smoking Status: Never Smoker Family History: Reviewed & Not Pertinent, DM, Hypertension Patient has suicidal ideation: No Patient has homicidal ideation: No - Past Medical History Cardiac Medical History: Reports: Hx Congestive Heart Failure, Hx Hypercholesterolemia, Hx Hypertension Pulmonary Medical History: Reports: Hx Asthma, Hx Pneumonia, Hx Sleep Apnea Endocrine Medical History: Reports: Hx Diabetes Mellitus Type 2 Renal/ Medical History: Reports: Hx End Stage Renal Disease, Hx Kidney Stones, Hx Peritoneal Dialysis GI Medical History: Reports: Hx Cirrhosis - Scheduled for liver biopsy in [place] by Dr. Dennis on 04/14/2018., Hx Gastroesophageal Reflux Disease Psychiatric Medical History: Reports: Hx Depression Past Surgical History: Reports: Hx Abdominal Surgery - peritoneal dialysis fistula, Hx Hysterectomy, Hx Tubal Ligation, Other - Peritoneal dialysis catheter placement - Immunizations Immunizations up to date: No Hx Diphtheria, Pertussis, Tetanus Vaccination: Yes Hx Pneumococcal Vaccination: 11/18/16 Review of Systems - Review of Systems Constitutional: No symptoms reported EENT: No symptoms reported Cardiovascular: No symptoms reported Respiratory: No symptoms reported Gastrointestinal: See HPI, Abdominal pain, Vomiting Genitourinary: No symptoms reported Female Genitourinary: No symptoms reported Musculoskeletal: No symptoms reported Skin: No symptoms reported Hematologic/Lymphatic: No symptoms reported Neurological/Psychological: No symptoms reported -: Yes All other systems reviewed and negative Physical Exam - Vital signs Vitals: Temp Pulse Resp BP Pulse Ox 98.3 F 85 20 129/78 H 97 07/05/18 10:58 07/05/18 10:58 07/05/18 10:58 07/05/18 10:58 07/05/18 10:58 - Notes Notes: GENERAL: Alert, interacts well. No acute distress. HEAD: Normocephalic, atraumatic. EYES: Pupils equal, round, and reactive to light. Extraocular movements intact. ENT: Oral mucosa moist, tongue midline. NECK: Full range of motion. Supple. Trachea midline. LUNGS: Clear to auscultation bilaterally, no wheezes, rales, or rhonchi. No respiratory distress. HEART: Regular rate and rhythm. No murmurs, gallops, or rubs. ABDOMEN: Morbidly obese, there is a 10cm x 20cm x 30 cm mass in the RLQ, indurated, tender to palpate. PD catheter is the LLQ. Bowel sounds present in all 4 quadrants. No guarding, rigidity, or rebound. EXTREMITIES: Moves all 4 extremities spontaneously. No peripheral edema, radial and dorsalis pedis pulses 2/4 bilaterally. No cyanosis. NEUROLOGICAL: Alert and oriented x3. Normal speech. PSYCH: Normal affect, normal mood. SKIN: Warm, dry, normal turgor. No rashes or lesions noted. Course - Re-evaluation Re-evalutation: 07/05/18 13:46 The pathology report from the right lower quadrant abdominal wall mass was fibrous tissue, possible old hematoma, no malignancy. Reviewing the records it appears this developed initially sometime in May and grew progressively larger. There is no history of injections in that area or trauma. The ultrasound now shows the same echogenic mass unchanged from an ultrasound done in May 2018. The chest x-ray does not show any acute disease process. The CBC and Chem-12 are at the patient's baseline. 07/05/18 14:01 I reviewed the findings with the patient, she did bring up the problem with constipation. I did inform her that the pain medication that she has is also good for suppressing cough, but that with constipation it would be best to try something else and only use that as last resort to suppress her cough. Again as noted under the HPI, she still has some of the [place] left from a prescription 10 days ago. - Vital Signs Vital signs: Temp Pulse Resp BP Pulse Ox 98.3 F 85 16 152/93 H 96 07/05/18 10:58 07/05/18 10:58 07/05/18 13:08 07/05/18 13:08 07/05/18 13:08 - Laboratory Result Diagrams: 07/05/18 11:42 07/05/18 11:42 Laboratory results interpreted by me: 07/05/18 07/05/18 07/05/18 11:42 11:42 11:42 RBC 3.71 L Hgb 9.0 L Hct 29.0 L MCV 78 L MCH 24.4 L MCHC 31.2 L RDW 19.1 H Potassium 3.3 L Chloride 91 L Carbon Dioxide 31 H BUN 71 H Creatinine 18.23 H Est GFR ( Amer) 2 L Est GFR (Non-Af Amer) 2 L Glucose 223 H Calcium 10.8 H Direct Bilirubin 0.7 H Alkaline Phosphatase 202 H NT-Pro-B Natriuret Pep 8910 H Total Protein 8.3 H - Diagnostic Test Radiology reviewed: Image reviewed, Reports reviewed - Chest x-ray shows cardiomegaly with slight right hemidiaphragm elevation and atelectasis in the left lung base. Discharge - Discharge Clinical Impression: Abdominal wall mass of right lower quadrant, Cough Vomiting Qualifiers: Vomiting type: unspecified Vomiting Intractability: non-intractable Nausea presence: without nausea Qualified Code(s): R11.11 - Vomiting without nausea Condition: Stable Disposition: HOME, SELF-CARE Additional Instructions: Take the Tessalon Perles as prescribed to help control your cough. Take the Zofran as prescribed to help with your nauseousness. Drink a bottle of mag citrate when you get home to help get your bowels moving. Take MiraLAX on a daily basis until your bowels are moving well. Try to avoid taking the hydrocodone tablets if possible due to the constipation problem. Follow-up with Dr. Khalil Saturday to discuss further management of your abdominal wall mass. RETURN TO THE EMERGENCY ROOM IF ANY NEW OR WORSENING SYMPTOMS. Prescriptions: Benzonatate [Tessalon Perles 100 mg Capsule] 100 mg PO ASDIR PRN #30 capsule PRN Reason: Ondansetron [Zofran Odt 4 mg Tablet] 1 - 2 tab PO Q4H PRN #15 tab.rapdis PRN Reason: Referrals: JULIA GOMEZ PA-C [Primary Care Provider] - Follow up as needed MARTHA KHALIL MD [ACTIVE STAFF] - 07/07/18 Scribe Attestation: 07/05/18 12:41 I personally performed the services described in the documentation, reviewed and edited the documentation which was dictated to the scribe in my presence, and it accurately records my words and actions. I personally performed the services described in the documentation, reviewed and edited the documentation which was dictated to the scribe in my presence, and it accurately records my words and actions.
--- NOTE | 2018-07-05 13:40 | RADIOLOGY REPORT (SQ) ---
EXAM DESCRIPTION: U/S ABDOMEN LIMITED W/O DOP COMPLETED DATE/TIME: 07/05/2018 1:06 pm REASON FOR STUDY: RLQ abd wall mass COMPARISON: 06/24/2018 TECHNIQUE: Dynamic and static grayscale images acquired of the localized site of clinical concern an d recorded on PACS. Additional selected color Doppler and spectral images recorded. SITE OF CONCERN: Right lower quadrant LIMITATIONS: None. FINDINGS: Similar to the prior exam there is a 9.8 x 4.8 x 9.5 cm mass in the right lower quadrant a bdominal wall. OTHER: No other significant finding. IMPRESSION: Similar to the prior exam there is a 9.8 x 4.8 x 9.5 cm mass in the right lower quadrant abdominal wall. TECHNICAL DOCUMENTATION: JOB ID: [id number] [place]-72 2010 [employer]- All Rights Reserved Reading location - IP/workstation name: [email or web address]
[2018-07-05 14:45] VITALS: BP 145/67
== END 2018-07-05 14:45 | disposition home or self-care (01) ==
LOC: ER 10:49
DX: R11.11 Vomiting without nausea (principal); R19.03 Right lower quadrant abdominal swelling, mass and lump; R10.31 Right lower quadrant pain; E66.01 Morbid (severe) obesity due to excess calories; I13.11 Hypertensive heart and chronic kidney disease without heart failure, with stage 5 chronic kidney disease, or end stage renal disease; N18.6 End stage renal disease; Z99.2 Dependence on renal dialysis; E11.22 Type 2 diabetes mellitus with diabetic chronic kidney disease; Z79.4 Long term (current) use of insulin; J45.909 Unspecified asthma, uncomplicated; R05 Cough; Z98.890 Other specified postprocedural states; Z88.5 Allergy status to narcotic agent; Z88.8 Allergy status to other drugs, medicaments and biological substances
CPT/HCPCS: 99284; 96374; 96375; 36415; 82553; 82962; 85025; 80053; 83880; 71046; 76705; A9270; J2270; J2405; S0119

== ENCOUNTER 2018-07-09 14:27 | Emergency (ER) | payer MEDICARE, MEDICAID ==
[2018-07-09 14:41] VITALS: BP 130/83
[2018-07-09] MEDS ORDERED: MORPHINE SULFATE 10 MG/ML INJ IV ONE (15:56)
[2018-07-09] MEDS ORDERED: ONDANSETRON HCL INJ/PF 4 MG/2 ML SDV IV ONE (15:56)
--- NOTE | 2018-07-09 16:01 | ER Document Report ---
ED GI/ - General Chief Complaint: Abdominal Pain Stated Complaint: ABDOMINAL PAIN/LUMP ON STOMACHE Time Seen by Provider: 07/09/18 15:43 Primary Care Provider: JULIA GOMEZ PA-C [Primary Care Provider] - Follow up as needed Mode of Arrival: Ambulatory Information source: Patient TRAVEL OUTSIDE OF THE [place] IN LAST 30 DAYS: No - HPI Patient complains to provider of: Abdominal pain Notes: 07/09/18 15:57 Patient here with complaints of right lower quadrant abdominal abscess/pain. Patient is a peritoneal dialysis patient. She has had this for several weeks and has been seen and evaluated for it in the past. She was seen here 4 days ago and had an ultrasound of the area that showed no change in size or appearance. She has not been running fevers. She does complain of some nausea. She states that Dr. Moran wanted her to come the emergency department to be evaluated for this. Patient initially said she was supposed to be a direct admit. We were able to discuss this with the staff at the office, they state that she is not a direct admit and that she needs to check in the emergency dep artment to be evaluated. Patient denies any other specific complaints at this moment. - Related Data Allergies/Adverse Reactions: oxycodone HCl [From Percocet] Allergy (Verified 07/05/18 10:50) Nausea prochlorperazine edisylate [From Compazine] Allergy (Verified 07/05/18 10:50) Hallucinations propoxyphene napsylate [From Darvocet-N 100] Allergy (Verified 07/05/18 10:50) Hallucinations Past Medical History - Social History Smoking Status: Unknown if Ever Smoked Family History: Reviewed & Not Pertinent, DM, Hypertension Patient has suicidal ideation: No Patient has homicidal ideation: No - Past Medical History Cardiac Medical History: Reports: Hx Congestive Heart Failure, Hx Hypercholesterolemia, Hx Hypertension Denies: Hx Coronary Artery Disease, Hx Heart Attack Pulmonary Medical History: Reports: Hx Asthma, Hx Pneumonia, Hx Sleep Apnea Denies: Hx Bronchitis, Hx COPD Neurological Medical History: Denies: Hx Cerebrovascular Accident, Hx Seizures Endocrine Medical History: Reports: Hx Diabetes Mellitus Type 1, Hx Diabetes Mellitus Type 2 Renal/ Medical History: Reports: Hx End Stage Renal Disease, Hx Kidney Stones. Denies: Hx Peritoneal Dialysis GI Medical History: Reports: Hx Cirrhosis - Scheduled for liver biopsy in [facility] by Dr. Dennis on 04/14/2018., Hx Gastroesophageal Reflux Disease Musculoskeletal Medical History: Denies Hx Arthritis Psychiatric Medical History: Reports: Hx Depression Infectious Medical History: Denies: Hx MRSA Past Surgical History: Reports: Hx Abdominal Surgery - peritoneal dialysis fistula, Hx Hysterectomy, Hx Tubal Ligation, Other - Peritoneal dialysis catheter placement - Immunizations Immunizations up to date: No Hx Diphtheria, Pertussis, Tetanus Vaccination: Yes Hx Pneumococcal Vaccination: 11/18/16 Review of Systems - Review of Systems -: Yes All other systems reviewed and negative Physical Exam - Vital signs Vitals: Temp Pulse Resp BP Pulse Ox 97.6 F 87 18 130/83 H 99 07/09/18 14:40 07/09/18 14:40 07/09/18 14:40 07/09/18 14:40 07/09/18 14:40 - Notes Notes: GENERAL: alert, cooperative, nontoxic, no distress. HEAD: normocephalic, atraumatic EYES: conjunctiva pink without discharge, no external redness or swelling. EARS: no external swelling, no external redness NOSE: atraumatic, no external swelling MOUTH/THROAT: mucous membranes moist and pink, posterior pharynx without erythema, swelling, exudate. No trismus or drooling. NECK: soft, supple, full range of motion, no meningismus. CHEST: no distress, lungs clear and equal throughout. No wheezing, rales, rhonchi. CARDIAC: regular rate and rhythm, no murmur, normal capillary refill, normal pulses. No peripheral edema noted. ABDOMEN: Morbid obese abdomen. Large tender indurated area to the right lower quadrant with no obvious redness or drainage. BACK: full range of motion, no CVA tenderness. EXTREMITIES: full range of motion of all extremities. No redness, no swelling. NEURO: alert and oriented x 3, no focal deficits, full range of motion of all extremities. PYSCH: appropriate mood, affect. Patient is cooperative. SKIN: pink, warm, dry, no rash. Course - Re-evaluation Re-evalutation: 07/09/18 15:59 Patient is extremely upset that she was not a direct admit. She then states that she needs a bed and needs IV narcotic medications immediately. Explained to her that I would be happy to order her 1 dose of pain medication while she is waiting in the lobby that I cannot put her in a bed at this time as the emergency department is extremely busy and that we cannot skip patients that have been here longer than her for a chronic problem that she is having at this time. Her vitals are stable. I ordered CBC, CMP, CT of the abdomen and pelvis to evaluate this area as well as a dose of morphine and Zofran in the emergency department. The patient wanted to know how long it was going to take for her to get the medication. Explained that it would probably take approximately 15 to 30 minutes, she states that she does not want to wait any longer and that she will be leaving at this time and will come back tomorrow for evaluation. Explained that she will need to sign out AGAINST MEDICAL ADVICE that I cannot completely rule out a serious cause of her pain such as an infection. That if she leaves without having all this evaluated that she could potentially become more ill. She verbalized understanding of this and will be signed out AGAINST MEDICAL ADVICE. the patient and/or family have decided to leave against medical advice. The patient and/or family are of sound mind to make this decision. The risks of leaving were discussed with the patient and/or family who verbalized an understanding of these risks. The possibility of worsening condition, chance of increased morbidity, disability, mortality, and even were discussed. The patient and/or family still choose to leave against medical advice. Strict return instructions were given. They were also instructed to return to the emergency department for any concerns not outlined in the return instructions. - Vital Signs Vital signs: Temp Pulse Resp BP Pulse Ox 97.6 F 87 18 130/83 H 99 07/09/18 14:40 07/09/18 14:40 07/09/18 14:40 07/09/18 14:40 07/09/18 14:40 Discharge - Discharge Clinical Impression: Abdominal wall mass Condition: Stable Disposition: AGAINST MEDICAL ADVICE Instructions: Abscess ([facility]) Additional Instructions: Follow-up with your doctor or return to the emergency department as needed for further evaluation. Follow-up sooner if you are getting worse in any way. Referrals: JULIA GOMEZ PA-C [Primary Care Provider] - Follow up as needed
== END 2018-07-09 15:55 | disposition left against medical advice (07) ==
LOC: ER 14:27
DX: L02.211 Cutaneous abscess of abdominal wall (principal); R10.9 Unspecified abdominal pain; R10.31 Right lower quadrant pain; R11.0 Nausea; Z99.2 Dependence on renal dialysis; I50.9 Heart failure, unspecified; I11.0 Hypertensive heart disease with heart failure; J45.909 Unspecified asthma, uncomplicated; E11.9 Type 2 diabetes mellitus without complications
CPT/HCPCS: 99283

== ENCOUNTER 2018-07-10 06:24 | Emergency (ER) | payer MEDICARE, MEDICAID ==
[2018-07-10 08:33] LABS: ABSOLUTE BASOPHILS # (AUTO) 0.1 10^3/uL (0.0-0.2); ABSOLUTE EOSINOPHILS # (AUTO) 0.2 10^3/uL (0.0-0.6); ABSOLUTE LYMPHOCYTES (AUTO) 1.2 10^3/uL (0.5-4.7); ABSOLUTE MONOCYTES (AUTO) 1.1 10^3/uL (0.1-1.4); ABSOLUTE NEUT (AUTO) 5.8 10^3/uL (1.7-8.2); BASOPHILS % (AUTO) 1.2 % (0-2); EOSINOPHILS % (AUTO) 2.3 % (0-6); HEMATOCRIT 26.2 % (36.0-47.0); HEMOGLOBIN 8.2 g/dL (12.0-15.5); LYMPHOCYTES % (AUTO) 14.7 % (13-45); MEAN CORPUSCULAR HEMOGLOBIN 24.6 pg (27.0-33.4); MEAN CORPUSCULAR HGB CONC 31.4 g/dL (32.0-36.0); MEAN CORPUSCULAR VOLUME 78 fl (80-97); PLATELET COUNT 308 10^3/uL (150-450); RED BLOOD COUNT 3.35 10^6/uL (3.72-5.28); RED CELL DISTRIBUTION WIDTH 18.8 % (11.5-14.0); SEGMENTED NEUTROPHILS % (AUTO) 68.8 % (42-78); TOTAL CELLS COUNTED % (AUTO) 100 %; WHITE BLOOD COUNT 8.5 10^3/uL (4.0-10.5)
[2018-07-10 08:44] LABS: ALANINE AMINOTRANSFERASE 20 U/L (9-52); ALBUMIN 3.3 g/dL (3.5-5.0); ALKALINE PHOSPHATASE 212 U/L (38-126); ANION GAP 19 (5-19); ASPARTATE AMINO TRANSFERASE 18 U/L (14-36); BILIRUBIN,DIRECT 0.6 mg/dL (0.0-0.4); BILIRUBIN,TOTAL 0.6 mg/dL (0.2-1.3); BLOOD UREA NITROGEN 65 mg/dL (7-20); CALCIUM 10.4 mg/dL (8.4-10.2); CARBON DIOXIDE 30 mmol/L (22-30); CHLORIDE 88 mmol/L (98-107); GLUCOSE 294 mg/dL (75-110); POTASSIUM 3.4 mmol/L (3.6-5.0); SODIUM 137.4 mmol/L (137-145); TOTAL PROTEIN 7.2 g/dL (6.3-8.2)
--- NOTE | 2018-07-10 09:45 | ER Document Report ---
ED General - General Chief Complaint: Abscess Stated Complaint: ABSCESS Time Seen by Provider: 07/10/18 08:28 Primary Care Provider: JULIA BYRD PA-C [Primary Care Provider] - Follow up in 3-5 days Notes: Patient presents emergency department with complaints of RLQ abdominal pain. Patient reports this has an abscess. Patient also reports that she has been coughing and vomiting after a cough for several days. She was recently treated for this. Patient denies fever reports last bowel movement is normal. Review of record shows that patient's been evaluated for this nominal pain several times. Recently she went to the OR had a I&D done of her buttocks and biopsy of the abdominal wall mass where it was found to be necrotic fat. Patient reports that she was evaluated by her surgeon Dr. llanos yesterday in his office and basically told that it was not safe for her to go to the OR due to her history. Patient has a history of morbid obesity insulin-dependent diabetes chronic renal failure which she is on peritoneal dialysis hypertension sleep apnea and hyperlipidemia. Patient reports to her visit with Dr. llanos she contacted Dr. Moran her direct selling counselor yesterday who told her to come to emergency department to be admitted. Patient was evaluated in the emergency department yesterday but left AMA. TRAVEL OUTSIDE OF THE [place] IN LAST 30 DAYS: No - HPI Onset: Other Onset/Duration: Persistent Quality of pain: Achy Severity: Severe Pain Level: 5 Associated symptoms: Nonproductive cough, Vomiting Exacerbated by: Denies Relieved by: Denies Similar symptoms previously: Yes Recently seen / treated by doctor: Yes - Related Data Allergies/Adverse Reactions: oxycodone HCl [From Percocet] Allergy (Verified 07/05/18 10:50) Nausea prochlorperazine edisylate [From Compazine] Allergy (Verified 07/05/18 10:50) Hallucinations propoxyphene napsylate [From Darvocet-N 100] Allergy (Verified 07/05/18 10:50) Hallucinations Past Medical History - General Information source: Patient - Social History Smoking Status: Former Smoker Chew tobacco use (# tins/day): No Frequency of alcohol use: None Drug Abuse: None Family History: Reviewed & Not Pertinent, DM, Hypertension Patient has suicidal ideation: No Patient has homicidal ideation: No - Past Medical History Cardiac Medical History: Reports: Hx Congestive Heart Failure, Hx Hypercholesterolemia, Hx Hypertension Denies: Hx Coronary Artery Disease, Hx Heart Attack Pulmonary Medical History: Reports: Hx Asthma, Hx Pneumonia, Hx Sleep Apnea Denies: Hx Bronchitis, Hx COPD Neurological Medical History: Denies: Hx Cerebrovascular Accident, Hx Seizures Endocrine Medical History: Reports: Hx Diabetes Mellitus Type 1, Hx Diabetes Mellitus Type 2 Renal/ Medical History: Reports: Hx End Stage Renal Disease, Hx Kidney Stones, Hx Peritoneal Dialysis GI Medical History: Reports: Hx Cirrhosis - Scheduled for liver biopsy in [place] by Dr. Dennis on 04/14/2018., Hx Gastroesophageal Reflux Disease Musculoskeletal Medical History: Denies Hx Arthritis Psychiatric Medical History: Reports: Hx Depression Infectious Medical History: Denies: Hx MRSA Past Surgical History: Reports: Hx Abdominal Surgery - peritoneal dialysis fistula, Hx Hysterectomy, Hx Tubal Ligation, Other - Peritoneal dialysis catheter placement - Immunizations Immunizations up to date: No Hx Diphtheria, Pertussis, Tetanus Vaccination: Yes Hx Pneumococcal Vaccination: 11/18/16 Review of Systems - Review of Systems Notes: Review HPI for review of systems., All other systems negative Physical Exam - Vital signs Vitals: Temp Pulse Resp BP Pulse Ox 97.3 F 93 24 H 92/71 L 98 07/10/18 06:33 07/10/18 06:33 07/10/18 06:33 07/10/18 06:33 07/10/18 06:33 - General General appearance: Appears well In distress: None - HEENT Head: Normocephalic, Atraumatic Eyes: Normal Conjunctiva: Normal Extraocular movements intact: Yes Mouth/Lips: Normal Mucous membranes: Normal Neck: Normal, Supple - Respiratory Respiratory status: No respiratory distress Chest status: Nontender Breath sounds: Normal Chest palpation: Normal - Cardiovascular Rhythm: Regular Heart sounds: Normal auscultation - Abdominal Inspection: Obese Distension: No distension Bowel sounds: Normal Tenderness: Tender Adult front & back diagram: 1 - large firm area to RLQ. no erythema, no pustula, no warmth. TTP - Back Back: Normal, Nontender - Extremities General upper extremity: Normal ROM General lower extremity: Normal ROM - Neurological Neuro grossly intact: Yes Cognition: Normal Orientation: AAOx4 Felt Coma Scale Eye Opening: Spontaneous Felt Coma Scale Verbal: Oriented Meghan Coma Scale Motor: Obeys Commands Meghan Coma Scale Total: 15 Speech: Normal Additional motor exam normals: Equal steel roller - Psychological Associated symptoms: Normal affect, Normal mood - Skin Skin Temperature: Warm Skin Moisture: Dry Course - Re-evaluation Re-evalutation: 07/10/18 10:[address] Dr[address] llanos since he was familiar with this patient they discussed patient care. Dr. Lopez reports that Dr. llanos reports there is more danger and going to the OR to take care of this that necrotic area due to her medical history and chronic diseases. Patient is to follow-up with her primary care provider Julia byrd for pain management or possibly a second opinion. I discussed this with patient and her mother. Mother agreed with everything I said and reports this was exactly what they heard yesterday. Patient will be discharged with pain medication. Dictation of this chart was performed using voice recognition software; th erefore, there may be some unintended grammatical errors. - Vital Signs Vital signs: Temp Pulse Resp BP Pulse Ox 97.8 F 93 16 168/99 H 100 07/10/18 10:01 07/10/18 06:33 07/10/18 10:01 07/10/18 10:01 07/10/18 10:01 - Laboratory Result Diagrams: 07/10/18 07:44 07/10/18 07:44 Laboratory results interpreted by me: 07/10/18 07/10/18 07:44 07:44 RBC 3.35 L Hgb 8.2 L Hct 26.2 L MCV 78 L MCH 24.6 L MCHC 31.4 L RDW 18.8 H Potassium 3.4 L Chloride 88 L BUN 65 H Creatinine 17.60 H Est GFR ( Amer) 3 L Est GFR (Non-Af Amer) 2 L Glucose 294 H Calcium 10.4 H Direct Bilirubin 0.6 H Alkaline Phosphatase 212 H Albumin 3.3 L - Diagnostic Test Radiology reviewed: Image reviewed, Reports reviewed - Reviewed past ultrasound and pathology report Discharge - Discharge Clinical Impression: abdominal wall pain Condition: Stable Disposition: HOME, SELF-CARE Instructions: Oral Narcotic Medication ([facility]), Pain Management Additional Instructions: *You have been evaluated for abdominal wall pain main *Take medication as prescribed *Follow up with your primary care provider within one week to discuss options such as pain management *Return to ED for worsening condition, changes, needs Prescriptions: Hydrocodone/Acetaminophen [[place] 5-325 mg Tablet] 1 tab PO QID #20 tablet Referrals: JULIA BYRD PA-C [Primary Care Provider] - Follow up in 3-5 days
[2018-07-10] MEDS ORDERED: HYDROCODONE/ACETAMINOPHEN 5-325 MG TABLET PO ONE (09:57)
[2018-07-10 10:09] VITALS: BP 168/99
== END 2018-07-10 10:12 | disposition home or self-care (01) ==
LOC: ER 06:24
DX: R10.9 Unspecified abdominal pain (principal); R10.31 Right lower quadrant pain; R05 Cough; R11.10 Vomiting, unspecified; I13.2 Hypertensive heart and chronic kidney disease with heart failure and with stage 5 chronic kidney disease, or end stage renal disease; E11.22 Type 2 diabetes mellitus with diabetic chronic kidney disease; N18.6 End stage renal disease; I50.9 Heart failure, unspecified; Z99.2 Dependence on renal dialysis; Z98.890 Other specified postprocedural states; Z87.891 Personal history of nicotine dependence
CPT/HCPCS: 99284; 36415; 83690; 85025; 80053; A9270

== ENCOUNTER 2018-07-29 08:09 | Emergency (ER) | payer MEDICARE, MEDICAID ==
[2018-07-29 08:34] LABS: ABSOLUTE BASOPHILS # (AUTO) 0.1 10^3/uL (0.0-0.2); ABSOLUTE EOSINOPHILS # (AUTO) 0.2 10^3/uL (0.0-0.6); ABSOLUTE LYMPHOCYTES (AUTO) 1.2 10^3/uL (0.5-4.7); ABSOLUTE MONOCYTES (AUTO) 1.4 10^3/uL (0.1-1.4); ABSOLUTE NEUT (AUTO) 7.8 10^3/uL (1.7-8.2); BASOPHILS % (AUTO) 0.5 % (0-2); EOSINOPHILS % (AUTO) 1.9 % (0-6); HEMATOCRIT 26.6 % (36.0-47.0); HEMOGLOBIN 8.4 g/dL (12.0-15.5); LYMPHOCYTES % (AUTO) 11.5 % (13-45); MEAN CORPUSCULAR HEMOGLOBIN 24.8 pg (27.0-33.4); MEAN CORPUSCULAR HGB CONC 31.5 g/dL (32.0-36.0); MEAN CORPUSCULAR VOLUME 79 fl (80-97); PLATELET COUNT 287 10^3/uL (150-450); RED BLOOD COUNT 3.38 10^6/uL (3.72-5.28); RED CELL DISTRIBUTION WIDTH 18.2 % (11.5-14.0); SEGMENTED NEUTROPHILS % (AUTO) 73.1 % (42-78); TOTAL CELLS COUNTED % (AUTO) 100 %; WHITE BLOOD COUNT 10.7 10^3/uL (4.0-10.5)
[2018-07-29 08:55] LABS: ALANINE AMINOTRANSFERASE 32 U/L (9-52); ALBUMIN 3.5 g/dL (3.5-5.0); ALKALINE PHOSPHATASE 312 U/L (38-126); ASPARTATE AMINO TRANSFERASE 27 U/L (14-36); BILIRUBIN,DIRECT 0.9 mg/dL (0.0-0.4); BILIRUBIN,TOTAL 0.9 mg/dL (0.2-1.3); BLOOD UREA NITROGEN 61 mg/dL (7-20); CALCIUM 10.7 mg/dL (8.4-10.2); GLUCOSE 297 mg/dL (75-110); LIPASE 73.1 U/L (23-300); POTASSIUM 4.1 mmol/L (3.6-5.0); TOTAL PROTEIN 7.6 g/dL (6.3-8.2)
--- NOTE | 2018-07-29 08:55 | ER Document Report ---
ED General - General Chief Complaint: Abdominal Pain Stated Complaint: ABDOMINAL PAIN Time Seen by Provider: 07/29/18 08:21 Primary Care Provider: JULIA GOMEZ PA-C [Primary Care Provider] - Follow up as needed LIDIA PARKS MD [ACTIVE STAFF] - Follow up as needed MARTHA KHALIL MD [ACTIVE STAFF] - Follow up as needed Notes: This is a morbidly obese 52-year-old -[place] female, on peritoneal dialysis. Complaining of pain in the right lower abdomen abdominal wall. Has been seen multiple times for the same. Had biopsy by general surgeon. Was seen at another hospital and discharged a week ago for the same. Complaining of worsening pain in the abdomen. Denies any fever, chills, sweats. States that she needs something stronger for the pain. TRAVEL OUTSIDE OF THE [place] IN LAST 30 DAYS: No - HPI Onset/Duration: Gradual, Constant Quality of pain: Throbbing Severity: Moderate Pain Level: 4 Associated symptoms: None - Related Data Allergies/Adverse Reactions: oxycodone HCl [From Percocet] Allergy (Verified 07/05/18 10:50) Nausea prochlorperazine edisylate [From Compazine] Allergy (Verified 07/05/18 10:50) Hallucinations propoxyphene napsylate [From Darvocet-N 100] Allergy (Verified 07/05/18 10:50) Hallucinations Past Medical History - General Information source: Patient, [facility] Records - Social History Smoking Status: Never Smoker Chew tobacco use (# tins/day): No Frequency of alcohol use: None Drug Abuse: None Lives with: Family Family History: Reviewed & Not Pertinent, DM, Hypertension Patient has suicidal ideation: No Patient has homicidal ideation: No - Past Medical History Cardiac Medical History: Reports: Hx Congestive Heart Failure, Hx Hyperchol esterolemia, Hx Hypertension Denies: Hx Coronary Artery Disease, Hx Heart Attack Pulmonary Medical History: Reports: Hx Asthma, Hx Bronchitis - chronic, Hx Pneumonia, Hx Sleep Apnea Denies: Hx COPD Neurological Medical History: Denies: Hx Cerebrovascular Accident, Hx Seizures Endocrine Medical History: Reports: Hx Diabetes Mellitus Type 1, Hx Diabetes Mellitus Type 2 Renal/ Medical History: Reports: Hx End Stage Renal Disease, Hx Kidney Stones, Hx Peritoneal Dialysis - apt today GI Medical History: Reports: Hx Cirrhosis - Scheduled for liver biopsy in [place] by Dr. Dennis on 04/14/2018., Hx Gastroesophageal Reflux Disease Musculoskeletal Medical History: Denies Hx Arthritis Psychiatric Medical History: Reports: Hx Depression Infectious Medical History: Denies: Hx MRSA Past Surgical History: Reports: Hx Abdominal Surgery - peritoneal dialysis fistula, Hx Hysterectomy, Hx Tubal Ligation, Other - Peritoneal dialysis catheter placement - Immunizations Immunizations up to date: No Hx Diphtheria, Pertussis, Tetanus Vaccination: Yes Hx Pneumococcal Vaccination: 11/18/16 Review of Systems - Review of Systems Notes: Constitutional: denies: Chills, Diaphoresis, Fever, Malaise, Weakness EENT: denies: Eye discharge, Blurred vision, Tearing, Double vision, Nose congestion, Nose discharge, Throat swelling, Mouth pain Cardiovascular: denies: Palpitations, Heart racing, Orthopnea, Dyspnea, Chest pain Respiratory: denies: Cough, Hurts to breathe, Wheezing, Shortness of breath Gastrointestinal: denies: Diarrhea, Nausea, Vomiting, Black stools, bright red blood in stool. Does complain of abdominal pain. Genitourinary: denies: Burning, Dysuria, Discharge, Frequency, Flank pain, Hematuria. boss s not make urin Musculoskeletal: denies: Joint pain, Joint swelling, Muscle pain, Muscle stiffness, back pain Hematologic/Lymphatic: denies: Anemia, Easy bleeding, Easy bruising, Blood clots Neurological/Psychological: denies: Confusion, Dementia, Depression, Loss of consciousness Skin: No lesions, breakdown of the skin on the right abdomen. Physical Exam - Vital signs Vitals: Pulse Ox 95 07/29/18 09:40 Interpretation: Normal - Notes Notes: morbid obesity - General General appearance: Appears well, Alert - HEENT Head: Normocephalic, Atraumatic Eyes: Normal Pupils: PERRL - Respiratory Respiratory status: No respiratory distress Chest status: Nontender Breath sounds: Normal Chest palpation: Normal - Cardiovascular Rhythm: Regular Heart sounds: Normal auscultation Murmur: No - Abdominal Inspection: Normal Distension: No distension Bowel sounds: Normal Tenderness: Tender - Tenderness palpation right lower abdominal wall. Has a few scabbed leone present. Fat necrosis. Peritoneal dialysis in place Organomegaly: No organomegaly - Back Back: Normal, Nontender - Extremities General upper extremity: Normal inspection, Nontender, Normal color, Normal ROM, Normal temperature General lower extremity: Normal inspection, Nontender, Normal color, Normal ROM, Normal temperature. No: Mj's sign - Neurological Neuro grossly intact: Yes Cognition: Normal Orientation: AAOx4 Meghan Coma Scale Eye Opening: Spontaneous Meghan Coma Scale Verbal: Oriented Meghan Coma Scale Motor: Obeys Commands Meghan Coma Scale Total: 15 Speech: Normal Motor strength normal: LUE, RUE, LLE, RLE Sensory: Normal - Psychological Associated symptoms: Normal affect, Normal mood - Skin Skin Temperature: Warm Skin Moisture: Dry Skin Color: Other - There is a very large tenderness bruised and hematoma this area on the right lower abdomen. There is a peritoneal dialysis catheter placement in the left lower abdomen. There are a few scabs present on the right lower extremity hematoma area. Very firm to the touch. Very tender to touch. Course - Re-evaluation Re-evalutation: 07/29/18 11:25 Laboratory 07/29/18 07/29/18 07:35 07:35 WBC 10.7 H RBC 3.38 L Hgb 8.4 L Hct 26.6 L MCV 79 L MCH 24.8 L MCHC 31.5 L RDW 18.2 H Plt Count 287 Seg Neutrophils % 73.1 Lymphocytes % 11.5 L Monocytes % 13.0 Eosinophils % 1.9 Basophils % 0.5 Absolute Neutrophils 7.8 Absolute Lymphocytes 1.2 Absolute Monocytes 1.4 Absolute Eosinophils 0.2 Absolute Basophils 0.1 Sodium 138.9 Potassium 4.1 Chloride 91 L Carbon Dioxide 25 Anion Gap 23 H BUN 61 H Creatinine 16.63 H Est GFR ( Amer) 3 L Est GFR (Non-Af Amer) 2 L Glucose 297 H Calcium 10.7 H Total Bilirubin 0.9 Direct Bilirubin 0.9 H Neonat Total Bilirubin Not Reportable Neonat Direct Bilirubin Not Reportable Neonat Indirect Bili Not Reportable AST 27 ALT 32 Alkaline Phosphatase 312 H Total Protein 7.6 Albumin 3.5 Lipase 73.1 Abdomen/Pelvis CT 07/29/18 08:54 IMPRESSION: 1. As on the prior examination dated 12/20/2017, mild to moderate volume of ascites in the abdomen and pelvis. 2. Findings suggesting cirrhosis of the liver, stable finding. 3. Bilateral intravascular renal calcifications and nonobstructing renal calculi. 4. Stable appearing mild linear stranding in the omentum in the left upper-- mid quadrant of the abdomen. 5. There are several new small subcentimeter complex nodular densities in the anterior subcutaneous tissues, lower abdomen/pelvic region, more so on the right. These findings may be related prior injections. Correlation suggested and follow-up examination for re- evaluation if clinically indicated. The patient's labs are essentially unremarkable and at her baseline. A CT scan was performed which does not show any obvious abscess there is some nodular densities more likely were Dr. Khalil did the biopsy. I have given her some pain medication. I find no further issues at this time. I will attempt to make contact with the surgicalist to discuss the case but at this time I do not think the patient requires any further interventions. I did attempt to obtain records from [facility] and have been unsuccessful. Patient is afebrile. Her oral temperature is 98.0. I did do the temperature taking myself. I will discuss the case with Dr. Khalil but plan for discharge at this time. 07/29/18 11:28 07/29/18 11:35 I did have a discussion with Dr. Khalil. He does not feel that there is anything surgically to do at this point in time. This could be related to her elevated calcium which is leading to some fat necrosis however uncertain. At this time I have nothing further to offer her. I will discharge her in stable condition at this time. - Vital Signs Vital signs: Temp Pulse Resp BP Pulse Ox 98.9 F 86 16 117/72 97 07/29/18 12:56 07/29/18 12:56 07/29/18 12:56 07/29/18 12:56 07/29/18 12:56 - Laboratory Result Diagrams: 07/29/18 07:35 07/29/18 07:35 Laboratory results interpreted by me: 07/29/18 07/29/18 07:35 07:35 WBC 10.7 H RBC 3.38 L Hgb 8.4 L Hct 26.6 L MCV 79 L MCH 24.8 L MCHC 31.5 L RDW 18.2 H Lymphocytes % 11.5 L Chloride 91 L Anion Gap 23 H BUN 61 H Creatinine 16.63 H Est GFR ( Amer) 3 L Est GFR (Non-Af Amer) 2 L Glucose 297 H Calcium 10.7 H Direct Bilirubin 0.9 H Alkaline Phosphatase 312 H Discharge - Discharge Clinical Impression: Abdominal wall hematoma Qualifiers: Encounter type: subsequent encounter Qualified Code(s): S30.1XXD - Contusion of abdominal wall, subsequent encounter Condition: Good Disposition: HOME, SELF-CARE Instructions: Abdominal Pain ([facility]) Additional Instructions: It appears that you have a stable abdominal wall hematoma with some necrotic fat tissue. This may need to be addressed by your mower operator as sometimes calcium levels that are elevated can cause these issues. Return for worsening symptoms or concerns. Prescriptions: Hydrocodone/Acetaminophen [[place] 5-325 mg Tablet] 1 tab PO TID PRN 3 Days #9 tablet PRN Reason: Referrals: JULIA GOMEZ PA-C [Primary Care Provider] - Follow up as needed LIDIA PARKS MD [ACTIVE STAFF] - Follow up as needed MARTHA KHALIL MD [ACTIVE STAFF] - Follow up as needed
[2018-07-29 09:03] LABS: CARBON DIOXIDE 25 mmol/L (22-30); CHLORIDE 91 mmol/L (98-107); SODIUM 138.9 mmol/L (137-145)
[2018-07-29] MEDS ORDERED: HYDROCODONE/ACETAMINOPHEN 10-325 MG TABLET PO ONE (09:03)
[2018-07-29 09:05] LABS: ANION GAP 23 (5-19)
--- NOTE | 2018-07-29 10:06 | RADIOLOGY REPORT (SQ) ---
EXAM DESCRIPTION: CT ABD/PELVIS NO ORAL OR IV COMPLETED DATE/TIME: 07/29/2018 9:32 am REASON FOR STUDY: r abd wall mass COMPARISON: 12/20/2017 TECHNIQUE: CT scan of the abdomen and pelvis performed without intravenous or oral contrast. Images reviewed with lung, soft tissue, and bone windows. Reconstructed coronal and sagittal MPR images revi ewed. All images stored on PACS. All CT scanners at this facility use dose modulation, iterative reconstruction, and/or weight based d osing when appropriate to reduce radiation dose to as low as reasonably achievable (ALARA). [facility]: Dose Right [facility]: CareDose [facility]: Dose Right [facility]: Teradose 4D [facility]: Smart [employer] RADIATION DOSE: CT Rad equipment meets quality standard of care and radiation dose reduction techniq ues were employed. CTDIvol: 19.1 mGy. DLP: 1307 mGy-cm. LIMITATIONS: None. FINDINGS: LOWER CHEST: No significant interval changes. NON-CONTRASTED LIVER, SPLEEN, ADRENALS: Nodular contour to the liver in heterogenous attenuation, un changed findings. Evaluation limited by lack of IV contrast. PANCREAS: No masses. No peripancreatic inflammatory changes. GALLBLADDER: No identified stones by CT criteria. No inflammatory changes to suggest cholecystitis. RIGHT KIDNEY AND URETER: Intrarenal vascular calcifications and nonobstructing renal calculi, stable findings. The kidney is small in size, stable finding. Assessment limited by lack of IV contrast. No hydroureter. LEFT KIDNEY AND URETER: Intrarenal vascular calcifications and nonobstructing renal calculi. Assess ment limited by lack of IV contrast. No hydroureter. AORTA AND RETROPERITONEUM: Atherosclerotic changes involving the abdominal aorta and branch vessels. No aneurysm. No retroperitoneal masses or adenopathy. BOWEL AND PERITONEAL CAVITY: Peritoneal catheter, unchanged in location. No obvious masses or infla mmatory changes. APPENDIX: Not visualized. PELVIS, BLADDER, AND ABDOMINAL WALL: Several new small subcentimeter complex nodular densities in th e anterior subcutaneous tissues in the lower abdomen pelvic region, more so on the right, may be rela julien to prior injections. Bladder normal. BONES: No significant findings. OTHER: Mild linear stranding in the omentum in the left upper mid quadrant of the abdomen, unchanged finding. As on the prior examination, mild ascites in the abdomen and mild to moderate ascites in t he pelvic region. IMPRESSION: 1. As on the prior examination dated 12/20/2017, mild to moderate volume of ascites in t he abdomen and pelvis. 2. Findings suggesting cirrhosis of the liver, stable finding. 3. Bilateral intravascular renal calcifications and nonobstructing renal calculi. 4. Stable appearing mild linear stranding in the omentum in the left upper-- mid quadrant of the abd omen. 5. There are several new small subcentimeter complex nodular densities in the anterior subcutaneous tissues, lower abdomen/pelvic region, more so on the right. These findings may be related prior inj ections. Correlation suggested and follow-up examination for re- evaluation if clinically indicated. COMMENT: Quality ID # [id number]: Final reports with documentation of one or more dose reduction techniques (e.g., Automated exposure control, adjustment of the mA and/or kV according to patient size, use of iterative reconstruction technique) TECHNICAL DOCUMENTATION: JOB ID: [id number] [employer] [place]- All Rights Reserved Reading location - IP/workstation name: [email or web address]
[2018-07-29 12:58] VITALS: BP 117/72
== END 2018-07-29 12:58 | disposition home or self-care (01) ==
LOC: ER 08:09
DX: S30.1XXD Contusion of abdominal wall, subsequent encounter (principal); R10.31 Right lower quadrant pain; X58.XXXD Exposure to other specified factors, subsequent encounter; E11.22 Type 2 diabetes mellitus with diabetic chronic kidney disease; I13.2 Hypertensive heart and chronic kidney disease with heart failure and with stage 5 chronic kidney disease, or end stage renal disease; I50.9 Heart failure, unspecified; N18.6 End stage renal disease; E66.01 Morbid (severe) obesity due to excess calories; E78.00 Pure hypercholesterolemia, unspecified; Z99.2 Dependence on renal dialysis; Z87.442 Personal history of urinary calculi; Z90.710 Acquired absence of both cervix and uterus; Z88.6 Allergy status to analgesic agent
CPT/HCPCS: 99284; 36415; 83690; 85025; 80053; 74176; A9270

== ENCOUNTER 2018-08-04 09:41 | Day surgery (SDC) | payer MEDICARE, MEDICAID ==
[~2018-08-04 09:41] MED LIST: CEFAZOLIN 1 GM/D5W RTU 1 GM/50 ML RTUPB IV ONE; CEFAZOLIN 1 GM/D5W RTU 1 GM/50 ML RTUPB IV PRN; DIAZEPAM 5 MG TABLET ONE; DIAZEPAM 5 MG TABLET PO PRN; OXYCODONE-ACETAMINOPHEN 5-325 MG TABLET ONE; OXYCODONE-ACETAMINOPHEN 5-325 MG TABLET PO PRN
[2018-08-04 10:43] LABS: ABSOLUTE BASOPHILS # (AUTO) 0.1 10^3/uL (0.0-0.2); ABSOLUTE EOSINOPHILS # (AUTO) 0.2 10^3/uL (0.0-0.6); ABSOLUTE LYMPHOCYTES (AUTO) 1.3 10^3/uL (0.5-4.7); ABSOLUTE NEUT (AUTO) 8.4 10^3/uL (1.7-8.2); BASOPHILS % (AUTO) 0.8 % (0-2); EOSINOPHILS % (AUTO) 1.5 % (0-6); HEMATOCRIT 24.5 % (36.0-47.0); LYMPHOCYTES % (AUTO) 12.2 % (13-45); MEAN CORPUSCULAR HEMOGLOBIN 24.6 pg (27.0-33.4); MEAN CORPUSCULAR HGB CONC 31.7 g/dL (32.0-36.0); MEAN CORPUSCULAR VOLUME 77 fl (80-97); MONOCYTES % (AUTO) 8.9 % (3-13); PLATELET COUNT 397 10^3/uL (150-450); RED BLOOD COUNT 3.16 10^6/uL (3.72-5.28); RED CELL DISTRIBUTION WIDTH 18.4 % (11.5-14.0); SEGMENTED NEUTROPHILS % (AUTO) 76.6 % (42-78); TOTAL CELLS COUNTED % (AUTO) 100 %; WHITE BLOOD COUNT 10.9 10^3/uL (4.0-10.5)
[2018-08-04 10:45] LABS: HEMOGLOBIN 7.8 g/dL (12.0-15.5)
--- NOTE | 2018-08-04 10:53 | RADIOLOGY REPORT (SQ) ---
EXAM DESCRIPTION: CHEST SINGLE VIEW COMPLETED DATE/TIME: 08/04/2018 10:31 am REASON FOR STUDY: PRE OP COMPARISON: 07/05/2018 EXAM PARAMETERS: NUMBER OF VIEWS: One view. TECHNIQUE: Single frontal radiographic view of the chest acquired. RADIATION DOSE: NA LIMITATIONS: None. FINDINGS: LUNGS AND PLEURA: No opacities, masses or pneumothorax. No pleural effusion. MEDIASTINUM AND HILAR STRUCTURES: No masses. Contour normal. HEART AND VASCULAR STRUCTURES: Heart size is normal. BONES: No acute findings. HARDWARE: None in the chest. OTHER: No other significant finding. IMPRESSION: Normal study. TECHNICAL DOCUMENTATION: JOB ID: [id number] [employer]- All Rights Reserved Reading location - IP/workstation name: [email or web address]
[2018-08-04] MEDS ORDERED: ONDANSETRON HCL INJ/PF 4 MG/2 ML SDV ONE (10:55)
[2018-08-04 11:10] LABS: ANION GAP 17 (5-19); BLOOD UREA NITROGEN 63 mg/dL (7-20); CALCIUM 10.7 mg/dL (8.4-10.2); CARBON DIOXIDE 28 mmol/L (22-30); CHLORIDE 90 mmol/L (98-107); GLUCOSE 380 mg/dL (75-110); POTASSIUM 3.3 mmol/L (3.6-5.0); SODIUM 134.8 mmol/L (137-145)
[2018-08-04] MEDS ORDERED: FENTANYL CITRATE INJ/PF 100 MCG/2 ML AMPUL ONE (13:29)
[2018-08-04] MEDS ORDERED: MIDAZOLAM 2 MG/2 ML INJ ONE (13:29)
[2018-08-04] MEDS ORDERED: LIDOCAINE 0.5% INJ-PF (5 MG/ML) 50 ML SDV ONE (13:35)
[2018-08-04] MEDS ORDERED: BACITRACIN INJ 50,000 UNIT VIAL ONE (13:35)
--- NOTE | 2018-08-04 14:50 | Discharge Summary ---
Discharge Summary (SDC) - Discharge Final Diagnosis: #1 malfunctioning peritoneal dialysis catheter. 2. End-stage renal disease on dialysis. 3. Morbid obesity. 4. Diabetes mellitus type 2. 5. Hypertension. Date of Surgery: 08/04/18 Discharge Date: 08/04/18 Condition: Fair Treatment or Instructions: Discharge home [after recovery per ASU criteria]. Diet , [renal],as tolerated, when fully awake advance as tolerated. Activities within moderation encouraged. Follow up in my office by appointment in about [1 week]. Call for appointment. Leave wounds [covered], [keep clean and dry, until office visit in 1 week]. Hold of on school/work [until evaluation in office].\ Meds per med rec. May shower [in 48 hrs], [try to keep operated area as dry as possible]. Referrals: JULIA GOMEZ PA-C [Primary Care Provider] - Discharge Diet: Other (Comments) - Diabetic, renal. Respiratory Treatments at Home: Deep Breathing/Coughing Discharge Activity: Activity As Tolerated Report the Following to Your Physician Immediately: Shortness of Breath, Unusual Bleeding
--- NOTE | 2018-08-04 14:53 | Operative Report ---
Operative Report DATE OF SURGERY: 08/04/18 PREOPERATIVE DIAGNOSIS: #1 malfunctioning peritoneal dialysis catheter. 2. En d-stage renal disease on dialysis. 3. Morbid obesity. 4. Diabetes mellitus type 2. 5. Hypertension. POSTOPERATIVE DIAGNOSIS: #1 malfunctioning peritoneal dialysis catheter. 2. End-stage renal disease on dialysis. 3. Morbid obesity. 4. Diabetes mellitus type 2. 5. Hypertension. OPERATION: 1. Ultrasound evaluation real-time access in the right internal jugular vein. 2. Insertion of PermCath axis in the right internal jugular vein. 3. Angiogram and interpretation. SURGEON: ARTUR ALANIS CHILD WELFARE ASSISTANT: None. ANESTHESIA: Moderate Sedation TISSUE REMOVED OR ALTERED: Not applicable. COMPLICATIONS: None. ESTIMATED BLOOD LOSS: 2 mL. INTRAOPERATIVE FINDINGS: Of a satisfactory right internal jugular vein, estimated to be 1.5 cm in diameter. Satisfactory access and placement with the tip well down of the right atrial pool. Easy egress of blood and ingress of heparinized solution through both ports. Satisfactory flow of contrast through the right atrium, ventricle and pulmonary outflow tract on angiogram. PROCEDURE: After obtaining informed consent, the patient was taken to the [Zipper Setter Chainstitch] and positioned supine. The [right neck] and chest were prepared with chlorhexidine and draped out with sterile linen. After the " universal timeout", in which it was verified that the patient continued to receive antibiotic, the procedure commenced. A steriley sheathed ultrasound probe was used to evaluate the [right internal jugular] vein. Local anesthesia was infiltrated adjacent to the probe. Access into the [right internal jugular] vein was obtained using a micropuncture needle, followed by micropuncture wire and then a micropuncture catheter. This was followed by introduction of a 0.035 guidewire the tip of which was placed down into the inferior vena cava . A 27 cm long PermCath was now positioned over the chest and an exit site marked and locally anesthetized ,the catheter was placed between the 2 incisions. Proximally, the catheter was now positioned using a peel-away sheath, after dilation. Easy ingress of heparinized solution and egress of blood obtained through both ports. A completion angiogram was done by injecting contrast. The findings were as dictated. The neck incision was now closed using interrupted 3-0 PDS to the subcutaneous tissues, the catheter was anchored at the exit site using 3-0 PDS. A Biopatch device was now placed adjacent to the catheter. Dressings were applied and the procedure concluded. Exposure time: [0.6 minutes]. Exposure: 39.66 Tori green. Contrast amount: [5 mL] of [id number] low osmolality. Copies of the dictated operative report for Dr. Artur Soriano MD.concluded. Copies of the dictated operative report for Dr. Artur Soriano MD.
[2018-08-04 15:53] VITALS: BP 92/48
--- NOTE | 2018-08-04 16:56 | RADIOLOGY REPORT (SQ) ---
EXAM DESCRIPTION: TUNNELED CENTRAL LINE COMPLETED DATE/TIME: 08/04/2018 2:49 pm REASON FOR STUDY: N18.6 ESRD N18.6 END STAGE RENAL DISEASE COMPARISON: AP chest 08/04/2018 FLUOROSCOPY TIME: 10.6 minutes 3 series of digital fluoroscopic images saved to PACS. TECHNIQUE: Intra-operative images acquired during surgical procedure to evaluate progress. NUMBER OF IMAGES: 3 series of digital fluoroscopic images LIMITATIONS: None. FINDINGS: Intra procedural imaging and fluoro during placement of a right-sided tunneled central shantal ous dialysis catheter with the tip in the right atrium. IMPRESSION: IMAGE(S) OBTAINED DURING PROCEDURE. COMMENT: Quality ID 145: Final reports for procedures using fluoroscopy that document radiation exp osure indices, or exposure time and number of fluorographic images (if radiation exposure indices are not available) Please consult full operative report of the attending physician for description of the procedure. TECHNICAL DOCUMENTATION: JOB ID: [id number] [employer]- All Rights Reserved Reading location - IP/workstation name: [email or web address]
== END 2018-08-04 15:45 | disposition home or self-care (01) ==
LOC: CCL 09:41
PROVIDERS: ATTEND Surgery
DX: I13.2 Hypertensive heart and chronic kidney disease with heart failure and with stage 5 chronic kidney disease, or end stage renal disease (principal); E11.22 Type 2 diabetes mellitus with diabetic chronic kidney disease; N18.6 End stage renal disease; Z99.2 Dependence on renal dialysis; E66.01 Morbid (severe) obesity due to excess calories; I50.9 Heart failure, unspecified; F32.9 Major depressive disorder, single episode, unspecified; J45.909 Unspecified asthma, uncomplicated; Z68.42 Body mass index [BMI] 45.0-49.9, adult; Z01.818 Encounter for other preprocedural examination
CPT/HCPCS: 36415; 82962; 85025; 80048; 36558; 76937; 77001; 71045; C1752; Q9967; J2250; J3490 ×2; J0690; A9270; J3010; J2405; J1644

== ENCOUNTER → 2018-09-09 | Outpatient (CLI) | payer MEDICARE, MEDICAID ==
--- NOTE | 2018-09-09 09:22 | WOMENS IMAGING REPORT ---
EXAM DESCRIPTION: 3D DX MAMMO LEFT UNILAT COMPLETED DATE/TIME: 09/09/2018 8:36 am REASON FOR STUDY: N64.4 MASTODYNIA N64.4 MASTODYNIA COMPARISON: 2006 through 2012. 05/29/2018. EXAM PARAMETERS: Left CC and MLO. True lateral. LIMITATIONS: None. FINDINGS: BREAST LATERALITY: Left MASSES: No suspicious masses. CALCIFICATIONS: Benign diffuse calcifications, vascular. ARCHITECTURAL DISTORTION: None. DEVELOPING DENSITY: None. ASYMMETRY: None noted. OTHER: No other significant findings. IMPRESSION: No worrisome left breast findings. BREAST DENSITY: b. There are scattered areas of fibroglandular density. BIRAD: ASSESSMENT: 2 Benign findings. RECOMMENDATION: RECOMMENDED FOLLOW UP: Yearly screening mammography. SPECIFIC INTERVENTION/IMAGING/CONSULTATION RECOMMENDED:No additional intervention/ imaging/consultati on needed at this time. COMMUNICATION:The negative/benign results were communicated to the patient. COMMENT: The patient has been notified of the results by letter per MQSA requirements. Additional no tification policies are in place for contacting patient with suspicious or incomplete findings. Quality ID #[id number]: The [employer] recommends an annual screening mammogram for women aged 40 years or over. This facility utilizes a reminder system to ensure that all patients receive reminder letters, and/or direct phone calls for appointments. This includes reminders for routine scr eening mammograms, diagnostic mammograms, or other Breast Imaging Interventions when appropriate. Th is patient will be placed in the appropriate reminder system. TECHNICAL DOCUMENTATION: FINDING NUMBER: (1) ASSESSMENT: (1) JOB ID: [id number] [employer]- All Rights Reserved Reading location - IP/workstation name: [email or web address]
== END ==
LOC: WI 08:30
PROVIDERS: ATTEND Physician Assistant
DX: N64.4 Mastodynia (principal)
CPT/HCPCS: 77065; G0279

== ENCOUNTER 2018-09-14 16:22 | Emergency (ER) | payer MEDICARE, MEDICAID ==
--- NOTE | 2018-09-14 17:53 | ER Document Report ---
ED Medical Screen (RME) - General Chief Complaint: Leg Swelling Stated Complaint: SWOLLEN LEGS Time Seen by Provider: 09/14/18 17:24 Primary Care Provider: JULIA GOMEZ PA-C [Primary Care Provider] - Follow up as needed Notes: Patient is a 52-year-old female who presents to the emergency department with a chief complaint of abdominal pain. Her mother is at bedside to provide additional history. 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 Since the patient was discharged from the hospital, she went to hemodialysis 3 times, but each time the patient ended up and not tolerating dialysis due to the pain. Patient denies any pain around her [place] site. Patient admits to shortness of breath and increased bilateral lower extremity swelling. Patient also has a past medical history of hypertension and diabetes. Exam: 2+ pitting edema to bilateral lower extremities. Clear breath sounds noted bilaterally. Morbidly obese. I have greeted and performed a rapid initial assessment of this patient. A comprehensive ED assessment and evaluation of the patient, analysis of test results and completion of medical decision making process will be conducted by an additional ED providers. TRAVEL OUTSIDE OF THE [place] IN LAST 30 DAYS: No - Related Data Allergies/Adverse Reactions: oxycodone HCl [From Percocet] Allergy (Verified 09/14/18 16:23) Nausea prochlorperazine edisylate [From Compazine] Allergy (Verified 09/14/18 16:23) Hallucinations propoxyphene napsylate [From Darvocet-N 100] Allergy (Verified 09/14/18 16:23) Hallucinations Past Medical History - Social History Family history: Reviewed & Not Pertinent - Past Medical History Cardiac Medical History: Reports: Hx Congestive Heart Failure, Hx Heart Attack - chf, Hx Hypercholesterolemia, Hx Hypertension Denies: Hx Coronary Artery Disease Pulmonary Medical History: Reports: Hx Asthma, Hx Bronchitis - chronic, Hx Pneumonia, Hx Sleep Apnea Denies: Hx COPD Neurological Medical History: Denies: Hx Cerebrovascular Accident, Hx Seizures Endocrine Medical History: Reports: Hx Diabetes Mellitus Type 1, Hx Diabetes Mellitus Type 2 Renal/ Medical History: Reports: Hx End Stage Renal Disease, Hx Kidney Stones. Denies: Hx Peritoneal Dialysis GI Medical History: Reports: Hx Cirrhosis - Scheduled for liver biopsy in [place] by Dr. Dennis on 04/14/2018., Hx Gastroesophageal Reflux Disease Musculoskeltal Medical History: Reports Hx Arthritis Psychiatric Medical History: Reports: Hx Depression Infectious Medical History: Denies: Hx MRSA Past Surgical History: Reports: Hx Abdominal Surgery - peritoneal dialysis fistula, Hx Hysterectomy, Hx Tubal Ligation, Other - Peritoneal dialysis catheter placement - Immunizations Immunizations up to date: No Hx Diphtheria, Pertussis, Tetanus Vaccination: Yes History of Influenza Vaccine for 11/2016 - 04/2017 Season: Unknown Influenza Administration Date for 11/2016 - 04/2017 Season: 11/18/17 Physical Exam - Vital signs Vitals: Temp Pulse Resp BP Pulse Ox 98.2 F 74 20 154/68 H 95 09/14/18 16:29 09/14/18 16:29 09/14/18 16:29 09/14/18 16:29 09/14/18 16:29 Course - Vital Signs Vital signs: Temp Pulse Resp BP Pulse Ox 98.2 F 74 20 154/68 H 95 09/14/18 16:29 09/14/18 16:29 09/14/18 16:29 09/14/18 16:29 09/14/18 16:29 Doctor's Discharge - Discharge Referrals: JULIA GOMEZ PA-C [Primary Care Provider] - Follow up as needed
[2018-09-14 18:20] LABS: ABSOLUTE BASOPHILS # (AUTO) 0.1 10^3/uL (0.0-0.2); ABSOLUTE EOSINOPHILS # (AUTO) 0.2 10^3/uL (0.0-0.6); ABSOLUTE LYMPHOCYTES (AUTO) 1.6 10^3/uL (0.5-4.7); ABSOLUTE MONOCYTES (AUTO) 1.2 10^3/uL (0.1-1.4); ABSOLUTE NEUT (AUTO) 9.1 10^3/uL (1.7-8.2); BASOPHILS % (AUTO) 0.6 % (0-2); EOSINOPHILS % (AUTO) 1.9 % (0-6); HEMATOCRIT 22.6 % (36.0-47.0); LYMPHOCYTES % (AUTO) 13.1 % (13-45); MEAN CORPUSCULAR HEMOGLOBIN 24.8 pg (27.0-33.4); MEAN CORPUSCULAR HGB CONC 32.4 g/dL (32.0-36.0); MEAN CORPUSCULAR VOLUME 77 fl (80-97); MONOCYTES % (AUTO) 10.1 % (3-13); PLATELET COUNT 357 10^3/uL (150-450); RED BLOOD COUNT 2.94 10^6/uL (3.72-5.28); RED CELL DISTRIBUTION WIDTH 18.1 % (11.5-14.0); SEGMENTED NEUTROPHILS % (AUTO) 74.3 % (42-78); TOTAL CELLS COUNTED % (AUTO) 100 %; WHITE BLOOD COUNT 12.3 10^3/uL (4.0-10.5)
[2018-09-14 18:24] LABS: HEMOGLOBIN 7.3 g/dL (12.0-15.5)
[2018-09-14 18:35] LABS: ALANINE AMINOTRANSFERASE 21 U/L (9-52); ALBUMIN 2.8 g/dL (3.5-5.0); ALKALINE PHOSPHATASE 185 U/L (38-126); ASPARTATE AMINO TRANSFERASE 13 U/L (14-36); BILIRUBIN,DIRECT 0.4 mg/dL (0.0-0.4); BILIRUBIN,TOTAL 0.4 mg/dL (0.2-1.3); BLOOD UREA NITROGEN 71 mg/dL (7-20); CALCIUM 9.9 mg/dL (8.4-10.2); CREATINE KINASE 37 U/L (30-135); GLUCOSE 155 mg/dL (75-110); POTASSIUM 4.7 mmol/L (3.6-5.0); TOTAL PROTEIN 6.3 g/dL (6.3-8.2)
[2018-09-14 18:40] LABS: CARBON DIOXIDE 20 mmol/L (22-30); CHLORIDE 90 mmol/L (98-107)
[2018-09-14 18:45] LABS: ANION GAP 23 (5-19)
[2018-09-14 18:47] LABS: CREATINE KINASE MB 1.72 ng/mL (<4.55); TROPONIN I 0.012 ng/mL
--- NOTE | 2018-09-14 18:58 | ER Document Report ---
ED General - General Chief Complaint: Leg Swelling Stated Complaint: SWOLLEN LEGS Time Seen by Provider: 09/14/18 17:24 Primary Care Provider: JULIA GOMEZ PA-C [Primary Care Provider] - Follow up as needed LIDIA PARKS MD [ACTIVE STAFF] - Follow up tomorrow Notes: Patient is a 52-year-old female, with end-stage renal disease on peritoneal dialysis that presents to the emergency department for chief complaint of shortness of breath, and leg swelling. Patient states that she is noticed more swelling her legs, and feeling more short of breath at home, despite doing her peritoneal dialysis, she states she may have missed 1 or 2 sessions this past week, and her legs become more swollen is been harder for her to get around. She recently had calciphylaxis surgery, and was on hemodialysis briefly, but is now back on her peritoneal dialysis. She said that her legs are more swollen, she is been to a degree more fatigued, and her exercise capacity is gone down. She denies having any chest pain, abdominal pain, nausea, vomiting, headache. Past Medical History: End-stage renal disease on dialysis, hypertension, hyperlipidemia, diabetes Past Surgical History: Calciphylaxis surgery, peritoneal dialysis port, permacath placement Social History: Lives at home, denies current tobacco, alcohol or drug use. Family History: Reviewed and noncontributory for presenting illness Allergies: Reviewed, see documented allergy list. REVIEW OF SYSTEMS: Other than noted above, the 12 point review of systems was reviewed with the patient and were negative, all pertinent findings are included in the HPI. PHYSICAL EXAMINATION: Vital signs reviewed, nursing noted reviewed. GENERAL: Morbidly obese female, no acute distress at this time HEAD: Atraumatic, normocephalic. EYES: Eyes appear normal, extraocular movements intact, sclera anicteric, conjunctiva are normal. ENT: nares patent, oropharynx clear without exudates. Moist mucous membranes. NECK: Normal range of motion, supple without lymphadenopathy LUNGS: Lung sounds mildly diminished at the bases, clear to auscultation in the upper mathis, no acute respiratory distress. Permacath noted in the right chest wall, no erythema or drainage at site of insertion. HEART: Regular rate and rhythm without murmurs ABDOMEN: Soft, mild tenderness to palpation near her surgical site, wound appears to be healing nicely, normoactive bowel sounds. No rebound, guarding, or rigidity. No masses appreciated. Insertion site of the patient's peritoneal dialysis catheter appears well, no signs of infection. EXTREMITIES: Nontender, good range of motion, bilateral 3+ edema to the lower extremities. NEUROLOGICAL: No focal neurological deficits. Moves all extremities spontaneously Motor and sensory grossly intact on exam. PSYCH: Flat affect SKIN: Warm, Dry, normal turgor, no rashes or lesions noted on exposed skin TRAVEL OUTSIDE OF THE [place] IN LAST 30 DAYS: No - Related Data Allergies/Adverse Reactions: oxycodone HCl [From Percocet] Allergy (Verified 09/14/18 16:23) Nausea prochlorperazine edisylate [From Compazine] Allergy (Verified 09/14/18 16:23) Hallucinations propoxyphene napsylate [From Darvocet-N 100] Allergy (Verified 09/14/18 16:23) Hallucinations Past Medical History - Social History Smoking Status: Unknown if Ever Smoked Family History: Reviewed & Not Pertinent, DM, Hypertension Patient has suicidal ideation: No Patient has homicidal ideation: No - Past Medical History Cardiac Medical History: Reports: Hx Congestive Heart Failure, Hx Heart Attack - chf, Hx Hypercholesterolemia, Hx Hypertension Denies: Hx Coronary Artery Disease Pulmonary Medical History: Reports: Hx Asthma, Hx Bronchitis - chronic, Hx Pneumonia, Hx Sleep Apnea Denies: Hx COPD Neurological Medical History: Denies: Hx Cerebrovascular Accident, Hx Seizures Endocrine Medical History: Reports: Hx Diabetes Mellitus Type 1, Hx Diabetes Mellitus Type 2 Renal/ Medical History: Reports: Hx End Stage Renal Disease, Hx Kidney Stones. Denies: Hx Peritoneal Dialysis GI Medical History: Reports: Hx Cirrhosis - Scheduled for liver biopsy in [place] by Dr. Dennis on 04/14/2018., Hx Gastroesophageal Reflux Disease Musculoskeletal Medical History: Reports Hx Arthritis Psychiatric Medical History: Reports: Hx Depression Infectious Medical History: Denies: Hx MRSA Past Surgical History: Reports: Hx Abdominal Surgery - peritoneal dialysis fistula, Hx Hysterectomy, Hx Tubal Ligation, Other - Peritoneal dialysis catheter placement - Immunizations Immunizations up to date: No Hx Diphtheria, Pertussis, Tetanus Vaccination: Yes Hx Pneumococcal Vaccination: 11/18/16 Physical Exam - Vital signs Vitals: Temp Pulse Resp BP Pulse Ox 98.2 F 74 20 154/68 H 95 09/14/18 16:29 09/14/18 16:29 09/14/18 16:29 09/14/18 16:29 09/14/18 16:29 Course - Re-evaluation Re-evalutation: Patient seen and examined vital signs reviewed. Laboratory data and/or imaging were ordered as appropriate for the patient's presenting symptoms and complaint, with consideration of any critical or life threatening conditions that may be associated with their obtained history and exam as noted above. Results were reviewed when available and demonstrated essentially baseline blood work for this patient, she had an anemia of 7.3, but she is volume overloaded, and likely delusional, 7.9 within a month, she is supposed to get epo shots, and she is not sure if she is received all the one she needs recently. The patient was re-evaluated and was stable, she is not hypoxic on room air, I think the patient may need a session or 2 of hemodialysis, to improve her ultrafiltration and removal of fluid, but I advised her to do peritoneal dialysis at home this evening, with her "red" diasylate to help remove more fluid, to follow-up with her fire and explosion investigator, we did discuss possible admission or transfer to an outside facility, and there was not nephrology environmental specialist today, to admit the patient to the hospital to get dialysis orders, and she would have to be transferred, which the patient did not wish to do she prefer to go home and perform her peritoneal dialysis at home. Did not want to pursue any blood transfusion although her hemoglobin was near 7, it would only further volume overload her, and I believe it is delusional. She denies any bleeding, or melena. Evaluation was most consistent with volume overload, peripheral edema, the patient was not hypoxic and her chest x-ray did not demonstrate pulmonary edema, and I feel she can be safely discharged home to perform dialysis at home. Results were discussed with the patient at this point, after careful consideration I feel that that patient can be discharged from the emergency department, the patient was educated treatments and reasons to return to the emergency department based on their presumed diagnosis as noted above, they were advised to followup with a primary care physician in 2-3 days. Patient was agreeable to plan of care. *Note is created using voice recognition software and may contain spelling, syntax or grammatical errors. Laboratory 09/14/18 09/14/18 09/14/18 18:00 18:00 18:00 WBC 12.3 H RBC 2.94 L Hgb 7.3 L Hct 22.6 L MCV 77 L MCH 24.8 L MCHC 32.4 RDW 18.1 H Plt Count 357 Seg Neutrophils % 74.3 Lymphocytes % 13.1 Monocytes % 10.1 Eosinophils % 1.9 Basophils % 0.6 Absolute Neutrophils 9.1 H Absolute Lymphocytes 1.6 Absolute Monocytes 1.2 Absolute Eosinophils 0.2 Absolute Basophils 0.1 Sodium 132.5 L Potassium 4.7 Chloride 90 L Carbon Dioxide 20 L Anion Gap 23 H BUN 71 H Creatinine 14.46 H Est GFR ( Amer) 3 L Est GFR (Non-Af Amer) 3 L Glucose 155 H Calcium 9.9 Total Bilirubin 0.4 Direct Bilirubin 0.4 Neonat Total Bilirubin Not Reportable Neonat Direct Bilirubin Not Reportable Neonat Indirect Bili Not Reportable AST 13 L ALT 21 Alkaline Phosphatase 185 H Creatine Kinase 37 CK-MB (CK-2) 1.72 Troponin I 0.012 NT-Pro-B Natriuret Pep 95087 H Total Protein 6.3 Albumin 2.8 L Blood Type Antibody Screen 09/14/18 18:43 WBC RBC Hgb Hct MCV MCH MCHC RDW Plt Count Seg Neutrophils % Lymphocytes % Monocytes % Eosinophils % Basophils % Absolute Neutrophils Absolute Lymphocytes Absolute Monocytes Absolute Eosinophils Absolute Basophils Sodium Potassium Chloride Carbon Dioxide Anion Gap BUN Creatinine Est GFR ( Amer) Est GFR (Non-Af Amer) Glucose Calcium Total Bilirubin Direct Bilirubin Neonat Total Bilirubin Neonat Direct Bilirubin Neonat Indirect Bili AST ALT Alkaline Phosphatase Creatine Kinase CK-MB (CK-2) Troponin I NT-Pro-B Natriuret Pep Total Protein Albumin Blood Type O POSITIVE Antibody Screen NEGATIVE - Vital Signs Vital signs: Temp Pulse Resp BP Pulse Ox 98.6 F 74 20 123/106 H 100 09/14/18 19:35 09/14/18 16:29 09/14/18 19:35 09/14/18 19:35 09/14/18 19:35 - Laboratory Result Diagrams: 09/14/18 18:00 09/14/18 18:00 Laboratory results interpreted by me: 09/14/18 09/14/18 09/14/18 18:00 18:00 18:00 WBC 12.3 H RBC 2.94 L Hgb 7.3 L Hct 22.6 L MCV 77 L MCH 24.8 L RDW 18.1 H Absolute Neutrophils 9.1 H Sodium 132.5 L Chloride 90 L Carbon Dioxide 20 L Anion Gap 23 H BUN 71 H Creatinine 14.46 H Est GFR ( Amer) 3 L Est GFR (Non-Af Amer) 3 L Glucose 155 H AST 13 L Alkaline Phosphatase 185 H NT-Pro-B Natriuret Pep 04360 H Albumin 2.8 L Discharge - Discharge Clinical Impression: Peripheral edema, Chronic renal failure, stage 5 Condition: Stable Disposition: HOME, SELF-CARE Instructions: Edema, Peripheral ([facility]) Additional Instructions: Please follow-up with your fire and explosion investigator, call tomorrow, to schedule an appointment, please perform your peritoneal dialysis this evening, to try to pull more fluid off, if you are having worsening of symptoms, feel more short of breath, or develop chest pain, please return to the emergency department immediately. Referrals: JULIA GOMEZ PA-C [Primary Care Provider] - Follow up as needed LIDIA PARKS MD [ACTIVE STAFF] - Follow up tomorrow
--- NOTE | 2018-09-14 19:01 | RADIOLOGY REPORT (SQ) ---
EXAM DESCRIPTION: CHEST SINGLE VIEW COMPLETED DATE/TIME: 09/14/2018 6:51 pm REASON FOR STUDY: shortness of breath COMPARISON: 08/04/2018 FINDINGS: Single-view chest AP portable upright. Low lung volumes results in central vascular crowding. Cardiomegaly. Right central line in place. Tip to the superior vena cava without evidence of pneumothorax. TECHNICAL DOCUMENTATION: JOB ID: [id number] Reading location - IP/workstation name: [email or web address]
[2018-09-14 20:05] VITALS: BP 123/106
--- NOTE | 2018-09-14 21:53 | EKG REPORT ---
SEVERITY:- ABNORMAL ECG - SINUS RHYTHM FIRST DEGREE AV BLOCK NONSPECIFIC INTRAVENTRICULAR CONDUCTION DELAY PROBABLE LEFT VENTRICULAR HYPERTROPHY : Confirmed by: Camille Pollock 14-Sep-2018 21:53:31
== END 2018-09-14 20:31 | disposition home or self-care (01) ==
LOC: ER 16:22
DX: M79.89 Other specified soft tissue disorders (principal); I12.0 Hypertensive chronic kidney disease with stage 5 chronic kidney disease or end stage renal disease; I50.9 Heart failure, unspecified; E11.22 Type 2 diabetes mellitus with diabetic chronic kidney disease; N18.5 Chronic kidney disease, stage 5; Z99.2 Dependence on renal dialysis; J45.909 Unspecified asthma, uncomplicated; R60.0 Localized edema
CPT/HCPCS: 36415; 71045; 80053; 82550; 82553; 83880; 84484; 85025; 86850; 86900; 86901; 93005; 93010; 99284

== ENCOUNTER 2018-09-16 17:30 | Inpatient (IN) | payer MEDICARE, MEDICAID ==
[~2018-09-16 17:30] MED LIST changes: -CEFAZOLIN 1 GM/D5W RTU 1 GM/50 ML RTUPB IV ONE; -CEFAZOLIN 1 GM/D5W RTU 1 GM/50 ML RTUPB IV PRN; -DIAZEPAM 5 MG TABLET ONE; -DIAZEPAM 5 MG TABLET PO PRN; -OXYCODONE-ACETAMINOPHEN 5-325 MG TABLET ONE; -OXYCODONE-ACETAMINOPHEN 5-325 MG TABLET PO PRN; +PHENYLEPHRINE HCL INJ/PF 10 MG/1 ML SDV ONE; +SUCCINYLCHOLINE CHLORIDE INJ 200 MG/10 ML VIAL ONE
[2018-09-16] MEDS ORDERED: PIPERACILLIN/TAZOBACTAM 3.375 GM VIAL IV ONE (19:20)
--- NOTE | 2018-09-16 19:34 | PDOC H&P ---
History of Present Illness Admission Date/PCP: JULIA GOMEZ PA-C Patient complains of: Abdominal wound drainage and malaise History of Present Illness: JASPREET STAFFORD is a 52 year old female status post abdominal wall debridement for calciphylaxis several weeks ago at [facility]. The wound had been left open with outpatient dressing changes. However in the past to several days the wound character has changed with drainage and necrotic edges along with mental status changes. Uncertain whether she has had any fevers. Patient is a end- stage renal disease patient currently on peritoneal dialysis. She was transfused today for anemia. She has diabetes and compensated congestive heart failure. Past Medical History Cardiac Medical History: Reports: Congestive Heart Failure, Hyperlipidema, Hypertension Denies: Coronary Artery Disease Pulmonary Medical History: Reports: Asthma, Bronchitis - chronic, Pneumonia, Sleep Apnea Denies: Chronic Obstructive Pulmonary Disease (COPD) Neurological Medical History: Denies: Seizures Endocrine Medical History: Reports: Diabetes Mellitus Type 1, Diabetes Mellitus Type 2 Renal/ Medical History: Reports: End Stage Renal Disease GI Medical History: Reports: Cirrhosis - Scheduled for liver biopsy in [place] by Dr. Dennis on 04/14/2018., Gastroesophageal Reflux Disease Musculoskeltal Medical History: Reports: Arthritis Psychiatric Medical History: Reports: Depression Hematology: Reports: Anemia - hx Infectious Medical History: Denies: Methicillin-Resistant Staph Aureus Past Surgical History Past Surgical History: Reports: Hysterectomy, Tubal Ligation, Other - Peritoneal dialysis catheter placement Social History Smoking Status: Unknown if Ever Smoked Frequency of Alcohol Use: None Hx Recreational Drug Use: No Drugs: None Hx Prescription Drug Abuse: No Family History Family History: Reviewed & Not Pertinent, DM, Hypertension Parental Family History Reviewed: No Children Family History Reviewed: No Sibling(s) Family History Reviewed.: No Medication/Allergy Home Medications: Aspirin [Lo-Dose Aspirin EC] 81 mg PO DAILY 06/24/18 Budesonide [Pulmicort 90 mcg Flexhaler] 1 puff IH DAILY 06/24/18 Calcitriol [Rocaltrol 0.25 mcg Capsule] 0.25 mcg PO DAILY 06/24/18 Calcium Acetate [Phoslo 667 mg Capsule] 1,334 mg PO MEALS 06/24/18 Carvedilol [Coreg 25 mg Tablet] 25 mg PO Q12 06/24/18 Cinacalcet HCl [Sensipar 90 mg Tablet] 90 mg PO DAILY 06/24/18 Insulin Lispro [Humalog Kwikpen U-100] 0 units SQ .PERSLIDINGSCALE 06/24/18 Insulin Glargine,Hum.rec.anlog [Farzaneh Monteiro] 60 unit SQ ASDIR PRN 08/02/18 Tramadol HCl [Ultram] 50 mg PO PRN PRN 08/04/18 Allergies/Adverse Reactions: oxycodone HCl [From Percocet] Allergy (Verified 09/14/18 16:23) Nausea prochlorperazine edisylate [From Compazine] Allergy (Verified 09/14/18 16:23) Hallucinations propoxyphene napsylate [From Darvocet-N 100] Allergy (Verified 09/14/18 16:23) Hallucinations Physical Exam Vital Signs: Temp Pulse Resp BP Pulse Ox 97.7 F 82 16 170/82 H 100 09/16/18 18:37 09/16/18 18:37 09/16/18 18:37 09/16/18 18:37 09/16/18 18:37 General appearance: PRESENT: no acute distress, cooperative Eye exam: PRESENT: conjunctiva pink Respiratory exam: PRESENT: clear to auscultation shira Cardiovascular exam: PRESENT: RRR GI/Abdominal exam: PRESENT: other - Soft, obese, tenderness around a large lower abdominal 19 x 12 cm wound with necrotic edges with a soupiness at the base with exudate. Remainder the abdomen is soft and nontender. She has a peritoneal dialysis catheter in place well away from her wound. Neurological exam: PRESENT: awake Psychiatric exam: PRESENT: appropriate affect Assessment & Plan - Diagnosis (1) Infected abdominal wound Is this a current diagnosis for this admission?: Yes Plan: Patient will require debridement in the operating room. Admission for antibiotics and wound care. Will consult hospitalist to help manage this patient with multiple medical problems. Will consult nephrology. I have discussed with the patient the risk and benefits of the debridement including risk of poor wound healing, continued infection, bleeding, cardiopulmonary complications. Patient understands and agrees to proceed.
[2018-09-16] MEDS ORDERED: METOPROLOL TARTRATE PF/INJ 5 MG/5 ML SDV IV PRN (19:44)
[2018-09-16] MEDS ORDERED: GLUCAGON,HUMAN RECOMB 1 MG INJ IM PRN (19:47)
[2018-09-16] MEDS ORDERED: DEXTROSE 50%-WATER 25 GM/50 ML DISP.SYRIN IV PRN (19:47)
[2018-09-16] MEDS ORDERED: DEXTROSE 40% GEL 15 GM TUBE PO PRN (19:47)
[2018-09-16] MEDS ORDERED: IPRATROPIUM/ALBUTEROL 0.5-2.5 MG/3 ML AMPUL NEB PRN (19:48)
[2018-09-16 19:51] LABS: ABSOLUTE BASOPHILS # (AUTO) 0.1 10^3/uL (0.0-0.2); ABSOLUTE EOSINOPHILS # (AUTO) 0.1 10^3/uL (0.0-0.6); ABSOLUTE LYMPHOCYTES (AUTO) 1.6 10^3/uL (0.5-4.7); ABSOLUTE MONOCYTES (AUTO) 1.3 10^3/uL (0.1-1.4); ABSOLUTE NEUT (AUTO) 10.3 10^3/uL (1.7-8.2); BASOPHILS % (AUTO) 0.7 % (0-2); EOSINOPHILS % (AUTO) 0.9 % (0-6); HEMATOCRIT 27.8 % (36.0-47.0); HEMOGLOBIN 9.1 g/dL (12.0-15.5); LYMPHOCYTES % (AUTO) 11.8 % (13-45); MEAN CORPUSCULAR HEMOGLOBIN 25.3 pg (27.0-33.4); MEAN CORPUSCULAR HGB CONC 32.7 g/dL (32.0-36.0); MEAN CORPUSCULAR VOLUME 77 fl (80-97); MONOCYTES % (AUTO) 9.9 % (3-13); PLATELET COUNT 350 10^3/uL (150-450); RED BLOOD COUNT 3.59 10^6/uL (3.72-5.28); RED CELL DISTRIBUTION WIDTH 18.1 % (11.5-14.0); SEGMENTED NEUTROPHILS % (AUTO) 76.7 % (42-78); TOTAL CELLS COUNTED % (AUTO) 100 %; WHITE BLOOD COUNT 13.4 10^3/uL (4.0-10.5)
--- NOTE | 2018-09-16 19:57 | ER Document Report ---
ED General - General Chief Complaint: Altered Mental Status Stated Complaint: POST OP COMPLICATIONS Time Seen by Provider: 09/16/18 18:28 Primary Care Provider: JULIA GOMEZ PA-C [Primary Care Provider] - Follow up as needed Information source: Patient TRAVEL OUTSIDE OF THE [place] IN LAST 30 DAYS: No - HPI Notes: Patient is a 52-year-old female history of peritoneal dialysis and anemia with recent abdominal surgery for calciphylaxis which was performed to 4 weeks ago at [facility] presents to the emergency department with report of persistent open wound in the right greater than left lower abdominal region that is now having increased drainage and odor. Patient has had no fever or chills. She denies any significant pain through the region beyond her baseline. She denies any cough or congestion. No chest pain or difficulty breathing. The patient was noted to be anemic and was transfused with 2 units of blood earlier today and was brought down after her blood transfusion for evaluation of the surgical site. The patient has been going once a week to the wound care clinic for evaluation and having home health wound care dressing changes 3 times a week. Due to the odor and drainage the home health came 3 times in 3 days with last visit yesterday. Patient denies any other medication changes. She did states she did peritoneal dialysis overnight. - Related Data Allergies/Adverse Reactions: oxycodone HCl [From Percocet] Allergy (Verified 09/14/18 16:23) Nausea prochlorperazine edisylate [From Compazine] Allergy (Verified 09/14/18 16:23) Hallucinations propoxyphene napsylate [From Darvocet-N 100] Allergy (Verified 09/14/18 16:23) Hallucinations Past Medical History - General Information source: Patient - Social History Smoking Status: Unknown if Ever Smoked Frequency of alcohol use: None Drug Abuse: None Lives with: Family Family History: Reviewed & Not Pertinent, DM, Hypertension Patient has suicidal ideation: No Patient has homicidal ideation: No - Past Medical History Cardiac Medical History: Reports: Hx Congestive Heart Failure, Hx Heart Attack - chf, Hx Hypercholesterolemia, Hx Hypertension Denies: Hx Coronary Artery Disease Pulmonary Medical History: Reports: Hx Asthma, Hx Bronchitis - chronic, Hx Pneumonia, Hx Sleep Apnea Denies: Hx COPD Neurological Medical History: Denies: Hx Cerebrovascular Accident, Hx Seizures Endocrine Medical History: Reports: Hx Diabetes Mellitus Type 1, Hx Diabetes Jaycee litus Type 2 Renal/ Medical History: Reports: Hx End Stage Renal Disease, Hx Kidney Stones. Denies: Hx Peritoneal Dialysis GI Medical History: Reports: Hx Cirrhosis - Scheduled for liver biopsy in [place] by Dr. Dennis on 04/14/2018., Hx Gastroesophageal Reflux Disease Musculoskeletal Medical History: Reports Hx Arthritis Psychiatric Medical History: Reports: Hx Depression Infectious Medical History: Denies: Hx MRSA Past Surgical History: Reports: Hx Abdominal Surgery - peritoneal dialysis fistula, Hx Hysterectomy, Hx Tubal Ligation, Other - Peritoneal dialysis catheter placement - Immunizations Immunizations up to date: No Hx Diphtheria, Pertussis, Tetanus Vaccination: Yes Hx Pneumococcal Vaccination: 11/18/16 Review of Systems - Review of Systems -: Yes All other systems reviewed and negative Physical Exam - Vital signs Vitals: Temp Pulse Resp BP Pulse Ox 97.7 F 82 16 170/82 H 100 09/16/18 18:37 09/16/18 18:37 09/16/18 18:37 09/16/18 18:37 09/16/18 18:37 - Notes Notes: PHYSICAL EXAMINATION: GENERAl: no acute distress. HEAD: Atraumatic, normocephalic. EYES: Pupils equal round and reactive to light, extraocular movements intact, conjunctiva are normal. ENT: Nares patent, oropharynx clear without exudates. Moist mucous membranes. NECK: Normal range of motion, supple without lymphadenopathy LUNGS: Breath sounds clear to auscultation bilaterally and equal. No wheezes rales or rhonchi. HEART: Regular rate and rhythm without murmurs ABDOMEN: Soft, nondistended abdomen. No guarding, no rebound. No masses appreciated. Patient has left lower quadrant peritoneal dialysis site which appears clear and appropriate. The patient has large open wound with granulation tissue noted through the midline the lower right abdominal region that goes down to the subcutaneous tissue and to the edge of the muscle. There is appropriate granulation noted but there is necrotic area medially and also the superior aspect. Overall the size of the wound measures approximately 10 cm x 17 cm. No significant deeper discomfort noted no significant surrounding cellulitic change with the exception of the medial aspect along the edge. There is an obvious odor that may be Pseudomonas. There is some mild drainage noted with an odor. Female : deferred Musculoskeletal: Normal range of motion, 2+ lower extremity edema. No cyanosis. NEUROLOGICAL: Cranial nerves grossly intact. Normal speech, normal gait. Normal sensory, motor exams PSYCH: Normal mood, normal affect. SKIN: Warm, Dry, normal turgor, no rashes or lesions noted. Course - Re-evaluation Re-evalutation: 09/16/18 20:03 Blood culture and wound cultures were obtained prior to the patient receiving IV Zosyn. Patient had an IV established. The patient reported her last meal was at 1400 today. Discussion was undertaken with surgeon Dr. Ingram who saw the patient and agreed that the patient needed surgical intervention for wound debridement after medical clearance. Discussion was undertaken with Dr. Morrison who also evaluated the patient. 09/16/18 20:31 Patient was agreeable to admission and surgical intervention for wound debridement. Lab studies were consistent with chronic renal failure. No hypoglycemia. Anion gap was elevated at 20. - Vital Signs Vital signs: Temp Pulse Resp BP Pulse Ox 97.7 F 82 16 170/82 H 100 09/16/18 18:37 09/16/18 18:37 09/16/18 18:37 09/16/18 18:37 09/16/18 18:37 - Laboratory Result Diagrams: 09/16/18 19:25 09/16/18 19:25 Laboratory results interpreted by me: 09/16/18 09/16/18 19:25 19:25 WBC 13.4 H RBC 3.59 L Hgb 9.1 L Hct 27.8 L MCV 77 L MCH 25.3 L RDW 18.1 H Lymphocytes % 11.8 L Absolute Neutrophils 10.3 H Sodium 131.7 L Chloride 90 L Anion Gap 20 H BUN 74 H Creatinine 16.31 H Est GFR ( Amer) 3 L Est GFR (Non-Af Amer) 2 L Glucose 195 H Direct Bilirubin 0.6 H AST 13 L Alkaline Phosphatase 189 H Total Protein 6.1 L Albumin 2.7 L - EKG Interpretation by Me EKG shows normal: Sinus rhythm Additional EKG results interpreted by me: 09/16/18 20:06 EKG as interpreted by ks showed normal sinus rhythm heart rate of 84. There is a incomplete left bundle branch block. There is no gross evidence for acute HI or ischemia noted. Critical Care Note - Critical Care Note Total time excluding time spent on procedures (mins): 27 Discharge - Discharge Clinical Impression: ESRD (end stage renal disease) on dialysis, Morbid obesity with BMI of 40.0- 44.9, adult, Infected abdominal wound Disposition: ADMITTED INPATIENT Admitting Provider: Prince (Hospitalist) Unit Admitted: OR Referrals: JULIA GOMEZ PA-C [Primary Care Provider] - Follow up as needed
[2018-09-16 20:08] LABS: ALANINE AMINOTRANSFERASE 23 U/L (9-52); ALBUMIN 2.7 g/dL (3.5-5.0); ALKALINE PHOSPHATASE 189 U/L (38-126); ASPARTATE AMINO TRANSFERASE 13 U/L (14-36); BILIRUBIN,DIRECT 0.6 mg/dL (0.0-0.4); BILIRUBIN,TOTAL 0.6 mg/dL (0.2-1.3); BLOOD UREA NITROGEN 74 mg/dL (7-20); CALCIUM 9.5 mg/dL (8.4-10.2); GLUCOSE 195 mg/dL (75-110); POTASSIUM 4.7 mmol/L (3.6-5.0); TOTAL PROTEIN 6.1 g/dL (6.3-8.2)
--- NOTE | 2018-09-16 20:10 | RADIOLOGY REPORT (SQ) ---
EXAM DESCRIPTION: [facility]: XR CHEST 1 VIEW CLINICAL HISTORY: 52 years Female, pre-op COMPARISON: 09/14/2018 FINDINGS: Lungs are clear, with no focal infiltrate, pneumothorax, or pleural effusion. Right IJ line remains in place, tip at the cavoatrial junction. Mediastinum is unchanged. Bony structures are unremarkable. IMPRESSION: 1. No acute pulmonary findings.
[2018-09-16 20:20] LABS: ANION GAP 20 (5-19); CARBON DIOXIDE 22 mmol/L (22-30); CHLORIDE 90 mmol/L (98-107)
[2018-09-16] MEDS ORDERED: BUPIVACAINE HCL 0.25 % INJ/PF (2.5 MG/1 ML) 30 ML VIAL ONE ×2 (20:38→21:58)
[2018-09-16] MEDS ORDERED: FENTANYL CITRATE INJ/PF 100 MCG/2 ML AMPUL ONE (20:39)
[2018-09-16] MEDS ORDERED: PROPOFOL INJ 200 MG/20 ML VIAL IV ONE (20:40)
[2018-09-16] MEDS ORDERED: MIDAZOLAM 2 MG/2 ML INJ ONE (20:40)
[2018-09-16] MEDS: IPRATROPIUM/ALBUTEROL 0.5-2.5 MG/3 ML AMPUL NEB SCH (20:44)
[2018-09-16] MEDS ORDERED: DIPHENHYDRAMINE HCL 50 MG/ML VIAL IV PRN (21:44)
[2018-09-16] MEDS ORDERED: FENTANYL CITRATE INJ/PF 100 MCG/2 ML AMPUL IV PRN ×3 (21:44)
[2018-09-16] MEDS ORDERED: PROMETHAZINE HCL INJ 25 MG/1 ML VIAL IV PRN (21:44)
[2018-09-16] MEDS ORDERED: MEPERIDINE HCL/PF INJ 25 MG/1 ML DISP.SYRIN IV PRN (21:44)
[2018-09-16] MEDS ORDERED: INSULIN GLARGINE,HUM.REC.ANLOG 1,000 UNIT/10 ML VIAL SUBCUT SCH (22:00)
[2018-09-16] MEDS ORDERED: BACITRACIN INJ 50,000 UNIT VIAL ONE (22:12)
--- NOTE | 2018-09-16 22:29 | Operative Report ---
Operative Report DATE OF SURGERY: 09/16/18 PREOPERATIVE DIAGNOSIS: Abdominal wound infection with tissue necrosis. POSTOPERATIVE DIAGNOSIS: Same OPERATION: Excisional debridement of abdominal wound. ANESTHESIA: GA TISSUE REMOVED OR ALTERED: Necrotic tissue sent for Gram stain and culture. Tissue also sent to pathology. COMPLICATIONS: None ESTIMATED BLOOD LOSS: 100 cc INTRAOPERATIVE FINDINGS: Necrotic edges of a large abdominal wound with the wound measuring at the end of the procedure approximately 22 x 13 cm in size. Necrotic regions of fat with exudate. PROCEDURE: Informed consent was obtained. Patient was brought to the operating room placed on the operating table in supine position. After satisfactory induction of general anesthesia, patient's abdomen was prepped and draped in usual sterile fashion. Patient had necrotic skin edges nearly circumferentially around her large wound that measured about 20 x 11 cm in size. Rim of necrotic skin was excised circumferentially to viable skin edges. The underlying fat had pockets of necrosis with film of exudate and pus pockets. In order to clean this area well and allow sufficient pliability of the underlying tissue to allow tissue contracture and eventual closure, I excised wide region of the subcutaneous fat to include these pockets of pus and necrotic regions of fat. When I was done with the debridement the wound measured about 22 x 13 cm in size and was about 4-7 cm deep. All tissue that remained appeared viable with no pockets of pus. Hemostasis was achieved with electrocautery. The wound was then copiously irrigated and irrigant aspirated out. The wound was then packed with antibiotic impregnated Kerlix. Of note at the beginning in the midportion of the case local anesthetic was administered to augment anesthesia. Patient tolerated the procedure well with no apparent complications and was taken to the recovery area in stable condition.
[2018-09-16] MEDS ORDERED: DEXTROSE 5%-1/2 NORMAL SALINE 1,000 ML IV PRN (22:30)
[2018-09-17] MEDS: INSULIN GLARGINE,HUM.REC.ANLOG 1,000 UNIT/10 ML VIAL SUBCUT SCH ×2 (02:18→21:25)
[2018-09-17] MEDS: CARVEDILOL 12.5 MG TABLET PO SCH ×3 (02:18→21:24)
[2018-09-17] MEDS: INSULIN LISPRO 100 UNIT/ML 3 ML VIAL SUBCUT SCH ×4 (02:21→18:01)
[2018-09-17] MEDS: MORPHINE SULFATE 10 MG/ML INJ IV PRN ×3 (03:03→14:49)
--- NOTE | 2018-09-17 04:48 | PDOC CONSULTATION ---
Consultation Consult Date: 09/16/18 Attending physician:: KORTNEY CORBETT Provider Consulted: RHODA MARMOLEJO History of Present Illness Admission Date/PCP: 09/16/18 20:53 JULIA GOMEZ PA-C History of Present Illness: JASPREET STAFFORD is a 52 year old female with a partial past medical history of renal replacement therapy for end-stage renal failure formally on hemodialysis currently on peritoneal dialysis. Complicated by anemia, diastolic heart failure, obstructive sleep apnea, obesity, asthma, insulin-dependent diabetes, severe medication and lifestyle noncompliance. Patient was in transfusion clinic receiving transfusion of packed red blood cells but was noted disturbing an abdominal wall debridement site for calciphylaxis. She is seen in the emergency room found to have leukocytosis and referred to surgery for admission. Patient is awake and alert denying complaints, unaware of current medication regiment. Past Medical History Cardiac Medical History: Reports: Congestive Heart Failure, Myocardial Infarction - chf, Hyperlipidema, Hypertension Denies: Coronary Artery Disease Pulmonary Medical History: Reports: Asthma, Bronchitis - chronic, Pneumonia, Sleep Apnea Denies: Chronic Obstructive Pulmonary Disease (COPD) Neurological Medical History: Denies: Seizures Endocrine Medical History: Reports: Diabetes Mellitus Type 1, Diabetes Mellitus Type 2 Renal/ Medical History: Reports: End Stage Renal Disease GI Medical History: Reports: Cirrhosis - Scheduled for liver biopsy in [place] by Dr. Dennis on 04/14/2018., Gastroesophageal Reflux Disease Musculoskeltal Medical History: Reports: Arthritis Psychiatric Medical History: Reports: Depression Hematology: Reports: Anemia - hx Infectious Medical History: Denies: Methicillin-Resistant Staph Aureus Past Surgical History Past Surgical History: Reports: Hysterectomy, Tubal Ligation, Other - Peritoneal dialysis catheter placement Social History Information Source: Patient, Relative Lives with: Family Smoking Status: Never Smoker Frequency of Alcohol Use: None Hx Recreational Drug Use: No Drugs: None Hx Prescription Drug Abuse: No - Advance Directive Resuscitation Status: Full Code Family History Family History: DM, Hypertension Parental Family History Reviewed: Yes Children Family History Reviewed: Yes Sibling(s) Family History Reviewed.: Yes Medication/Allergy Allergies/Adverse Reactions: oxycodone HCl [From Percocet] Allergy (Verified 09/14/18 16:23) Nausea prochlorperazine edisylate [From Compazine] Allergy (Verified 09/14/18 16:23) Hallucinations propoxyphene napsylate [From Darvocet-N 100] Allergy (Verified 09/14/18 16:23) Hallucinations Review of Systems Constitutional: PRESENT: as per HPI, fatigue. ABSENT: fever(s), weight gain, weight loss Eyes: ABSENT: visual disturbances Ears: ABSENT: hearing changes Cardiovascular: ABSENT: chest pain, dyspnea on exertion, edema, orthropnea, p alpitations Respiratory: ABSENT: cough, hemoptysis Gastrointestinal: ABSENT: abdominal pain, constipation, diarrhea, hematemesis, hematochezia, nausea, vomiting Genitourinary: PRESENT: as per HPI - Anuric. ABSENT: dysuria, hematuria Musculoskeletal: PRESENT: muscle weakness. ABSENT: joint swelling Integumentary: PRESENT: as per HPI. ABSENT: rash, wounds Neurological: PRESENT: as per HPI Psychiatric: ABSENT: anxiety, depression, homidical ideation, suicidal ideation Endocrine: PRESENT: as per HPI, polyphagia. ABSENT: polyuria Hematologic/Lymphatic: ABSENT: easy bleeding, easy bruising Physical Exam Vital Signs: Temp Pulse Resp BP Pulse Ox 97.4 F 82 16 181/83 H 98 09/16/18 23:10 09/16/18 23:10 09/16/18 23:10 09/16/18 23:10 09/16/18 23:10 Intake & Output 09/15/18 09/16/18 09/17/18 11:59 11:59 11:59 Intake Total 500 Output Total 100 Balance 400 Weight 154.2 kg General appearance: PRESENT: cooperative, disheveled, mild distress, morbidly obese, well-developed, well-nourished Head exam: PRESENT: atraumatic, normocephalic Eye exam: PRESENT: conjunctiva pink, EOMI, PERRLA. ABSENT: scleral icterus Ear exam: PRESENT: normal external ear exam Mouth exam: PRESENT: moist, tongue midline Neck exam: ABSENT: carotid bruit, JVD, lymphadenopathy, thyromegaly Respiratory exam: PRESENT: clear to auscultation shira. ABSENT: rales, rhonchi, wheezes Cardiovascular exam: PRESENT: RRR. ABSENT: diastolic murmur, rubs, systolic murmur Pulses: PRESENT: normal dorsalis pedis pul Vascular exam: PRESENT: normal capillary refill GI/Abdominal exam: PRESENT: normal bowel sounds, soft, other - 19 x 12 cm surgical wound with necrotic discharge at the edges. ABSENT: distended, guarding, mass, organolmegaly, rebound, tenderness Rectal exam: PRESENT: deferred Extremities exam: PRESENT: full ROM. ABSENT: calf tenderness, clubbing, pedal edema, tenderness Neurological exam: PRESENT: alert, awake, oriented to person, oriented to place, oriented to time, oriented to situation, CN II-XII grossly intact. ABSENT: motor sensory deficit Psychiatric exam: PRESENT: depressed, flat affect. ABSENT: manic, suicidal ideation Skin exam: PRESENT: dry, intact, warm, other - 19 x 12 cm surgical wound with necrotic discharge at the edges. ABSENT: cyanosis, rash Results Laboratory Results: 09/16/18 19:25 09/16/18 19:25 09/16/18 09/16/18 09/16/18 19:25 19:25 19:25 WBC 13.4 H RBC 3.59 L Hgb 9.1 L Hct 27.8 L MCV 77 L MCH 25.3 L MCHC 32.7 RDW 18.1 H Plt Count 350 Seg Neutrophils % 76.7 Lymphocytes % 11.8 L Monocytes % 9.9 Eosinophils % 0.9 Basophils % 0.7 Absolute Neutrophils 10.3 H Absolute Lymphocytes 1.6 Absolute Monocytes 1.3 Absolute Eosinophils 0.1 Absolute Basophils 0.1 Sodium 131.7 L Potassium 4.7 Chloride 90 L Carbon Dioxide 22 Anion Gap 20 H BUN 74 H Creatinine 16.31 H Est GFR ( Amer) 3 L Est GFR (Non-Af Amer) 2 L Glucose 195 H Lactic Acid 1.0 Calcium 9.5 Total Bilirubin 0.6 AST 13 L ALT 23 Alkaline Phosphatase 189 H Total Protein 6.1 L Albumin 2.7 L 09/16/18 19:25 Troponin I 0.020 Impressions: Chest X-Ray 09/16/18 19:19 IMPRESSION: 1. No acute pulmonary findings. Assessment and Plan - Diagnosis (1) ESRD (end stage renal disease) on dialysis Is this a current diagnosis for this admission?: Yes Plan: Appears euvolemic, without acidosis or hyperkalemia, follow-up nephrology consult, calcitriol, PhosLo and Sensipar ordered (2) CHF (congestive heart failure) Qualifiers: Heart failure type: unspecified Heart failure chronicity: acute Qualified Code(s): I50.9 - Heart failure, unspecified Is this a current diagnosis for this admission?: Yes Plan: Diastolic, compensated, avoid uncontrolled hypertension, tachycardia or fluid status. BiPAP ordered (3) Diabetes mellitus type 2 in obese Is this a current diagnosis for this admission?: Yes Plan: One third long-acting insulin dose ordered for tonight while n.p.o., Humalog sliding scale (4) Hypertension Qualifiers: Hypertension type: essential hypertension Qualified Code(s): I10 - Essential (primary) hypertension Is this a current diagnosis for this admission?: Yes Plan: Outpatient Coreg and hydralazine ordered as needed - Time Time Spent with patient: 35 or more minutes - Inpatient Certification Medical Necessity: Significant Comorbidiites Make Outpatient Treatment Too Risky, Need Close Monitoring Due to Risk of Patient Decompensation
[2018-09-17] MEDS ORDERED: CINACALCET HCL 30 MG TABLET PO ONE (05:00)
[2018-09-17] MEDS: CALCIUM ACETATE 667 MG CAPSULE PO SCH ×3 (07:54→18:01)
[2018-09-17 08:12] LABS: ABSOLUTE BASOPHILS # (AUTO) 0.1 10^3/uL (0.0-0.2); ABSOLUTE EOSINOPHILS # (AUTO) 0.2 10^3/uL (0.0-0.6); ABSOLUTE LYMPHOCYTES (AUTO) 0.9 10^3/uL (0.5-4.7); ABSOLUTE MONOCYTES (AUTO) 1.2 10^3/uL (0.1-1.4); ABSOLUTE NEUT (AUTO) 11.7 10^3/uL (1.7-8.2); BASOPHILS % (AUTO) 0.6 % (0-2); EOSINOPHILS % (AUTO) 1.6 % (0-6); HEMATOCRIT 25.4 % (36.0-47.0); HEMOGLOBIN 8.3 g/dL (12.0-15.5); LYMPHOCYTES % (AUTO) 6.4 % (13-45); MEAN CORPUSCULAR HEMOGLOBIN 25.6 pg (27.0-33.4); MEAN CORPUSCULAR HGB CONC 32.8 g/dL (32.0-36.0); MEAN CORPUSCULAR VOLUME 78 fl (80-97); MONOCYTES % (AUTO) 8.4 % (3-13); PLATELET COUNT 302 10^3/uL (150-450); RED BLOOD COUNT 3.26 10^6/uL (3.72-5.28); RED CELL DISTRIBUTION WIDTH 17.9 % (11.5-14.0); TOTAL CELLS COUNTED % (AUTO) 100 %; WHITE BLOOD COUNT 14.1 10^3/uL (4.0-10.5)
[2018-09-17] MEDS: IPRATROPIUM/ALBUTEROL 0.5-2.5 MG/3 ML AMPUL NEB SCH ×2 (08:20→20:58)
[2018-09-17 08:41] LABS: ALANINE AMINOTRANSFERASE 22 U/L (9-52); ALBUMIN 2.3 g/dL (3.5-5.0); ALKALINE PHOSPHATASE 156 U/L (38-126); ASPARTATE AMINO TRANSFERASE 12 U/L (14-36); BILIRUBIN,DIRECT 0.4 mg/dL (0.0-0.4); BILIRUBIN,TOTAL 0.4 mg/dL (0.2-1.3); BLOOD UREA NITROGEN 76 mg/dL (7-20); CALCIUM 9.1 mg/dL (8.4-10.2); GLUCOSE 113 mg/dL (75-110); POTASSIUM 4.5 mmol/L (3.6-5.0); TOTAL PROTEIN 5.5 g/dL (6.3-8.2)
[2018-09-17] MEDS ORDERED: EPOETIN ALFA INJ 20000 UNIT/1 ML VIAL (RENAL) IV PRN (08:41)
[2018-09-17 08:47] LABS: CARBON DIOXIDE 21 mmol/L (22-30); CHLORIDE 92 mmol/L (98-107)
[2018-09-17] MEDS ORDERED: EPOETIN ALFA-EPBX 10,000 UNIT/ML VIAL (RENAL) IV PRN (08:50)
[2018-09-17 08:55] LABS: ANION GAP 20 (5-19)
[2018-09-17] MEDS ORDERED: NORMAL SALINE IV SCH (11:00)
[2018-09-17] MEDS ORDERED: SODIUM THIOSULFATE IV SCH (11:00)
--- NOTE | 2018-09-17 12:35 | PDOC CONSULTATION ---
Consultation Consult Date: 09/17/18 Provider Consulted: Deandra JANE Consult reason:: ESRD for hemodialysis, calciphylaxis in the form of an ulcerating lesion in the right iliac fossa. History of Present Illness Admission Date/PCP: 09/16/18 20:53 JULIA GOMEZ PA-C History of Present Illness: JASPREET STAFFORD is a 52 year old female With history of long-standing complicated diabetes mellitus, hypertension and ESRD on hemodialysis presents to the hospital with worsening pain and ulceration of this chronic ulcer in the right iliac fossa. She has had this ulcer for around 4 months or so and initial diagnosis was not confirming of calciphylaxis and hence no specific treatment was made. She was recently admitted to [facility] and as per perusal of the notes did have some arterial calcifications and they have confirmed calciphylaxis and was begun on sodium thiosulfate prior to discharging the patient. Patient has been on peritoneal dialysis for a long time and we had obviously converted her to hemodialysis given the fact that she was having this ulcerating lesion close to her PD catheter exit site. However in spite of the fact that she has a PermCath and was on hemodialysis at [facility] when she returned she insisted and refused to go on hemodialysis and went back to doing peritoneal dialysis.So far she has had no different abdominal pains and the PD fluid has been clear Patient was admitted to the hospital yesterday by Dr. Ingram/surgicalist and then went on to have evaluations done which shows sloughing and early gangrenous lesions in the ulcer which was debrided in the OR. Cultures is presently growing gram-negative rods. Patient's is not currently on any antibiotics.Patient denies any history of fever or chills.Labs and medications were reviewed. After having a long talk with the patient is finally agreed to go back on hemodialysis and stop peritoneal dialysis and have the peritoneal dialysis catheter removed by Dr. Soriano soon. Patient complains of severe pain around the ulcer area. She has also had difficulty to stay on the hemodialysis recliners from low back pain. However she is now being seen at the pain clinic in [place] and is also following the wound clinic over there. Since she has been on the pain patch she says the pains are tolerable and she is now considering towards restarting hemodialysis as she understands the risks of not doing PD in the face of ongoing infected ulcer. Patient is now being seen again on dialysis which she is undergoing without any issues through her right IJ catheter.Dialysis orders were reviewed with the treating dialysis nurse. Past Medical History Cardiac Medical History: Reports: CHF-Diastolic, Hyperlipidemia, Hypertension- primary, Myocardial Infarction - chf Denies: Coronary Artery Disease Pulmonary Medical History: Reports: Asthma, Bronchitis - chronic, Pneumonia, Sleep Apnea Denies: Chronic Obstructive Pulmonary Disease (COPD) Neurological Medical History: Denies: Seizures Endocrine Medical History: Reports: Diabetes Mellitus Type 1, Diabetes Mellitus Type 2 Complications of Diabetes: Reports: Nephropathy Renal/ Medical History: Reports: End Stage Renal Disease, Hypokalemia, Hyperphosphatemia, Secondary Hyperparathyroidism GI Medical History: Reports: Cirrhosis - Scheduled for liver biopsy in [facility] by Dr. Dennis on 04/14/2018., Gastroesophageal Reflux Disease Musculoskeltal Medical History: Reports: Arthritis Psychiatric Medical History: Reports: Depression Infectious Medical History: Denies: Methicillin-resist Staph Aureus Hematology Medical History: Reports Anemia of Chronic Kidney Disease Past Surgical History Past Surgical History: Reports: Dialysis Access Surgery PD, Hysterectomy, Tubal Ligation, Other - Peritoneal dialysis catheter placement Social History Lives with: Family Smoking Status: Never Smoker Frequency of Alcohol Use: None Hx Recreational Drug Use: No Drugs: None Hx Prescription Drug Abuse: No - Advance Directive Resuscitation Status: Full Code Family History Parental Family History Reviewed: Yes - Negative for ESRD Children Family History Reviewed: No Sibling(s) Family History Reviewed.: No Medication/Allergy Home Medications: Albuterol Sulfate [Ventolin Hfa 8 gm Mdi (1 Mdi/ER Disp)] 2 puff IH Q6HP PRN 09/17/18 Budesonide/Formoterol Fumarate [Symbicort Hfa 160-4.5 Mcg Inhaler 6 gm] 2 puff IH Q12 09/17/18 Collagenase Clostridium Hist. [Santyl Ointment 30 gm] 1 applic TP ASDIR PRN 09/17/18 Hydralazine HCl 100 mg PO TID 09/17/18 Insulin Glargine,Hum.rec.anlog [Lantus Insulin 100 Unit/1 ml 10 ml] 10 unit SUBCUT QHS 09/17/18 Lactulose [Constulose 10 gm/15 mL Oral Solution] 30 ml PO Q6H 09/17/18 Metoclopramide HCl 5 mg PO TID 09/17/18 Oxycodone HCl [Roxicodone] 5 mg PO BIDP PRN 09/17/18 Pregabalin [Lyrica 75 mg Capsule] 75 mg PO Q12 09/17/18 Sevelamer HCl [Renagel 800 mg Tablet] 2,400 mg PO ASDIR PRN 09/17/18 Tramadol HCl [Ultram 50 mg Tablet] 50 mg PO TIDP PRN 09/17/18 Allergies/Adverse Reactions: oxycodone HCl [From Percocet] Allergy (Verified 09/14/18 16:23) Nausea prochlorperazine edisylate [From Compazine] Allergy (Verified 09/14/18 16:23) Hallucinations propoxyphene napsylate [From Darvocet-N 100] Allergy (Verified 09/14/18 16:23) Hallucinations Review of Systems Constitutional: PRESENT: anorexia, fatigue, weakness. ABSENT: chills, fever(s), headache(s), night sweats Nose, Mouth, and Throat: ABSENT: mouth pain, sore throat Cardiovascular: PRESENT: dyspnea on exertion, edema. ABSENT: orthropnea, palpitations Respiratory: PRESENT: dyspnea. ABSENT: cough, hemoptysis Gastrointestinal: PRESENT: abdominal pain - Of the right iliac fossa where the ulcer is.. ABSENT: coffee ground emesis, diarrhea, dysphagia, heartburn, hematemesis, hematochezia, nausea, vomiting Genitourinary: ABSENT: dysuria, hematuria Musculoskeletal: ABSENT: deformity, joint swelling Integumentary: PRESENT: lesions - Ulcerated lesion in the right iliac fossa. Status post debridement in the OR yesterday by surgery. Neurological: ABSENT: abnormal movements, abnormal speech, confusion, convul sions, focal weakness, frequent falls Psychiatric: ABSENT: anxiety Hematologic/Lymphatic: ABSENT: easy bleeding, easy bruising, lymphadenopathy Physical Exam Vital Signs: Temp Pulse Resp BP Pulse Ox 97.3 F 70 18 153/87 H 100 09/17/18 03:15 09/17/18 08:29 09/17/18 08:29 09/17/18 03:15 09/17/18 08:29 Intake & Output 09/16/18 09/17/18 09/18/18 06:59 06:59 06:59 Intake Total 740 Output Total 100 Balance 640 Weight 154.2 kg General appearance: PRESENT: no acute distress, morbidly obese Eye exam: PRESENT: EOMI, PERRLA Ear exam: PRESENT: normal external ear exam Mouth exam: PRESENT: moist, neck supple Neck exam: ABSENT: lymphadenopathy, meningismus, tenderness, thyromegaly, tracheal deviation Respiratory exam: PRESENT: clear to auscultation shira. ABSENT: crackles Cardiovascular exam: PRESENT: +S1, +S2 GI/Abdominal exam: PRESENT: normal bowel sounds, soft. ABSENT: organomegaly, tenderness Extremities exam: PRESENT: pedal edema Neurological exam: PRESENT: altered - She is sleepy but easily arousable . She has been given narcotics. However the patient is easily arousable and responds to questions appropriately. Psychiatric exam: PRESENT: appropriate affect Skin exam: ABSENT: cyanosis, dry, erythema Results Laboratory Results: 09/17/18 07:10 09/17/18 07:10 09/16/18 09/16/18 09/16/18 19:25 19:25 19:25 WBC 13.4 H RBC 3.59 L Hgb 9.1 L Hct 27.8 L MCV 77 L MCH 25.3 L MCHC 32.7 RDW 18.1 H Plt Count 350 Seg Neutrophils % 76.7 Lymphocytes % 11.8 L Monocytes % 9.9 Eosinophils % 0.9 Basophils % 0.7 Absolute Neutrophils 10.3 H Absolute Lymphocytes 1.6 Absolute Monocytes 1.3 Absolute Eosinophils 0.1 Absolute Basophils 0.1 Sodium 131.7 L Potassium 4.7 Chloride 90 L Carbon Dioxide 22 Anion Gap 20 H BUN 74 H Creatinine 16.31 H Est GFR ( Amer) 3 L Est GFR (Non-Af Amer) 2 L Glucose 195 H Lactic Acid 1.0 Calcium 9.5 Total Bilirubin 0.6 AST 13 L ALT 23 Alkaline Phosphatase 189 H Total Protein 6.1 L Albumin 2.7 L Blood Type Antibody Screen 09/16/18 09/17/18 09/17/18 19:25 07:10 07:10 WBC 14.1 H RBC 3.26 L Hgb 8.3 L Hct 25.4 L MCV 78 L MCH 25.6 L MCHC 32.8 RDW 17.9 H Plt Count 302 Seg Neutrophils % 83.0 H Lymphocytes % 6.4 L Monocytes % 8.4 Eosinophils % 1.6 Basophils % 0.6 Absolute Neutrophils 11.7 H Absolute Lymphocytes 0.9 Absolute Monocytes 1.2 Absolute Eosinophils 0.2 Absolute Basophils 0.1 Sodium 133.0 L Potassium 4.5 Chloride 92 L Carbon Dioxide 21 L Anion Gap 20 H BUN 76 H Creatinine 16.63 H Est GFR ( Amer) 3 L Est GFR (Non-Af Amer) 2 L Glucose 113 H Lactic Acid Calcium 9.1 Total Bilirubin 0.4 AST 12 L ALT 22 Alkaline Phosphatase 156 H Total Protein 5.5 L Albumin 2.3 L Blood Type O POSITIVE Antibody Screen NEGATIVE 09/16/18 19:25 Troponin I 0.020 Impressions: Chest X-Ray 09/16/18 19:19 IMPRESSION: 1. No acute pulmonary findings. Assessment & Plan - Diagnosis (1) Calciphylaxis Plan: Patient is got severe calciphylactic ulcer in the right lower iliac fossa. It generated initially from a golf ball sized mass to baseball and more size hard indurated mass which is now opened and is ulcerating. Finally we have got biopsies confirming arterial calcifications while she was at [facility] recently and she was begun on sodium thiosulfate over there and discharged. Patient has had debridement of the sloughing and early gangrene during this admission and cultures are pending. We will continue on with sodium thiosulfate while she is here and as an outpatient.Start IV antibiotics as in the past she has grown E. coli. (2) ESRD (end stage renal disease) on dialysis Is this a current diagnosis for this admission?: Yes Plan: Patient had a me had a long talk and she has finally agreed to go on hemodialysis. She is currently being seen again on hemodialysis which she is undergoing without any issues. Vital signs are stable. Plan to remove her on 2 L as tolerated. Dialysis orders were reviewed with the treating dialysis nurse. Dialysis is being supervised to ensure safe and smooth procedure.She will get sodium thiosulfate during the end of dialysis. (3) Infected abdominal wound Is this a current diagnosis for this admission?: Yes Plan: Status post debridement by surgery. Will start IV cefepime. (4) Morbid obesity with BMI of 40.0-44.9, adult Plan: Status quo. (5) Abdominal pain Qualifiers: Abdominal location: right lower quadrant Qualified Code(s): R10.31 - Right lower quadrant pain Plan: From the abdominal ulcer. She has been started seeing pain clinic and pains are much better on the current treatments. (6) Abdominal wall mass of right lower quadrant Plan: Secondary to calciphylaxis with open wound. As mentioned earlier. Starting sodium thiosulfate. (7) Anemia in chronic kidney disease (CKD) Qualifiers: Chronic kidney disease stage: unspecified stage Qualified Code(s): N18.9 - Chronic kidney disease, unspecified; D63.1 - Anemia in chronic kidney disease Plan: Adjust erythropoietin. (8) Diabetes mellitus type 2 in obese Is this a current diagnosis for this admission?: Yes Plan: Advised tight control. (9) Hypertension Qualifiers: Hypertension type: essential hypertension Qualified Code(s): I10 - Essen tial (primary) hypertension Is this a current diagnosis for this admission?: Yes Plan: Monitor.
[2018-09-17] MEDS ORDERED: HEPARIN SOD (PORCINE) 1,000 UNIT/ML 10 ML VIAL IV PRN (12:51)
--- NOTE | 2018-09-17 13:10 | PDOC PROGRESS REPORT ---
Subjective Progress Note for:: 09/17/18 Reason For Visit: ABDOMINAL WALL INFECTION Physical Exam Vital Signs: Temp Pulse Resp BP Pulse Ox 97.3 F 70 18 153/87 H 100 09/17/18 03:15 09/17/18 08:29 09/17/18 08:29 09/17/18 03:15 09/17/18 08:29 Intake & Output 09/16/18 09/17/18 09/18/18 06:59 06:59 06:59 Intake Total 740 Output Total 100 Balance 640 Weight 154.2 kg General appearance: PRESENT: mild distress Head exam: PRESENT: normocephalic Eye exam: PRESENT: EOMI Ear exam: PRESENT: normal external ear exam Mouth exam: PRESENT: dry mucosa Neck exam: PRESENT: full ROM Respiratory exam: PRESENT: clear to auscultation shira Cardiovascular exam: PRESENT: RRR Vascular exam: PRESENT: normal capillary refill GI/Abdominal exam: PRESENT: other - Mental wound is dressed with a saline gauze and removed and examined and appears to be clean base without any evidence of further necrosis Rectal exam: PRESENT: deferred Extremities exam: PRESENT: full ROM, +1 edema Musculoskeletal exam: PRESENT: full ROM Neurological exam: PRESENT: altered Psychiatric exam: PRESENT: appropriate affect Focused psych exam: PRESENT: pressured speech Skin exam: PRESENT: dry Results Laboratory Results: 09/17/18 07:10 09/17/18 07:10 09/16/18 09/16/18 09/16/18 19:25 19:25 19:25 WBC 13.4 H RBC 3.59 L Hgb 9.1 L Hct 27.8 L MCV 77 L MCH 25.3 L MCHC 32.7 RDW 18.1 H Plt Count 350 Seg Neutrophils % 76.7 Lymphocytes % 11.8 L Monocytes % 9.9 Eosinophils % 0.9 Basophils % 0.7 Absolute Neutrophils 10.3 H Absolute Lymphocytes 1.6 Absolute Monocytes 1.3 Absolute Eosinophils 0.1 Absolute Basophils 0.1 Sodium 131.7 L Potassium 4.7 Chloride 90 L Carbon Dioxide 22 Anion Gap 20 H BUN 74 H Creatinine 16.31 H Est GFR ( Amer) 3 L Est GFR (Non-Af Amer) 2 L Glucose 195 H Lactic Acid 1.0 Calcium 9.5 Total Bilirubin 0.6 AST 13 L ALT 23 Alkaline Phosphatase 189 H Total Protein 6.1 L Albumin 2.7 L Blood Type Antibody Screen 09/16/18 09/17/18 09/17/18 19:25 07:10 07:10 WBC 14.1 H RBC 3.26 L Hgb 8.3 L Hct 25.4 L MCV 78 L MCH 25.6 L MCHC 32.8 RDW 17.9 H Plt Count 302 Seg Neutrophils % 83.0 H Lymphocytes % 6.4 L Monocytes % 8.4 Eosinophils % 1.6 Basophils % 0.6 Absolute Neutrophils 11.7 H Absolute Lymphocytes 0.9 Absolute Monocytes 1.2 Absolute Eosinophils 0.2 Absolute Basophils 0.1 Sodium 133.0 L Potassium 4.5 Chloride 92 L Carbon Dioxide 21 L Anion Gap 20 H BUN 76 H Creatinine 16.63 H Est GFR ( Amer) 3 L Est GFR (Non-Af Amer) 2 L Glucose 113 H Lactic Acid Calcium 9.1 Total Bilirubin 0.4 AST 12 L ALT 22 Alkaline Phosphatase 156 H Total Protein 5.5 L Albumin 2.3 L Blood Type O POSITIVE Antibody Screen NEGATIVE 09/16/18 19:25 Troponin I 0.020 Impressions: Chest X-Ray 09/16/18 19:19 IMPRESSION: 1. No acute pulmonary findings. Assessment & Plan - Diagnosis (1) Calciphylaxis Is this a current diagnosis for this admission?: Yes - Plan Summary Plan Summary: She is status post abdominal wall debridement for calciphylaxis the wound is packed with saline soaked gauze will start dressing changes today with probable wound VAC placement tomorrow
[2018-09-17 14:57] LABS: ARTERIAL BLOOD BASE EXCESS -3.2 mmol/L; ARTERIAL BLOOD H2CO3 1.37 mmol/L (1.05-1.35); ARTERIAL BLOOD HCO3 22.8 mmol/L (20-24); ARTERIAL BLOOD O2 SATURATION 98.5 % (94-98); ARTERIAL BLOOD PCO2 45.4 mmHg (35-45); ARTERIAL BLOOD PH 7.32 (7.35-7.45); ARTERIAL BLOOD PO2 137.1 mmHg (80-100); ARTERIAL BLOOD TOTAL CO2 24.2 mmol/L (21-25)
[2018-09-17 15:01] LABS: ARTERIAL BLOOD FIO2 28%
[2018-09-17 15:04] LABS: HEMATOCRIT 25.7 % (36.0-47.0); HEMOGLOBIN 8.5 g/dL (12.0-15.5); MEAN CORPUSCULAR HEMOGLOBIN 25.6 pg (27.0-33.4); MEAN CORPUSCULAR VOLUME 78 fl (80-97); PLATELET COUNT 302 10^3/uL (150-450); RED BLOOD COUNT 3.31 10^6/uL (3.72-5.28); RED CELL DISTRIBUTION WIDTH 17.7 % (11.5-14.0); WHITE BLOOD COUNT 13.7 10^3/uL (4.0-10.5)
[2018-09-17] MEDS: CALCITRIOL 0.25 MCG CAPSULE PO SCH (15:06)
[2018-09-17] MEDS: ENOXAPARIN SODIUM INJ 30 MG/0.3 ML DISP.SYRIN SUBCUT SCH (15:07)
[2018-09-17 15:22] LABS: ALANINE AMINOTRANSFERASE 22 U/L (9-52); ALBUMIN 2.4 g/dL (3.5-5.0); ALKALINE PHOSPHATASE 172 U/L (38-126); ANION GAP 18 (5-19); ASPARTATE AMINO TRANSFERASE 13 U/L (14-36); BILIRUBIN,DIRECT 0.4 mg/dL (0.0-0.4); BILIRUBIN,TOTAL 0.4 mg/dL (0.2-1.3); CALCIUM 8.8 mg/dL (8.4-10.2); CARBON DIOXIDE 24 mmol/L (22-30); CHLORIDE 94 mmol/L (98-107); GLUCOSE 168 mg/dL (75-110); PHOSPHORUS 5.6 mg/dL (2.5-4.5); TOTAL PROTEIN 5.7 g/dL (6.3-8.2)
[2018-09-17 15:44] LABS: BLOOD UREA NITROGEN 51 mg/dL (7-20)
[2018-09-17] MEDS ORDERED: ONDANSETRON HCL INJ/PF 4 MG/2 ML SDV ONE (16:23)
[2018-09-17] MEDS ORDERED: PROMETHAZINE HCL INJ 25 MG/1 ML VIAL IV PRN (16:43)
[2018-09-17] MEDS ORDERED: ONDANSETRON HCL INJ/PF 4 MG/2 ML SDV IV PRN (16:43)
[2018-09-17] MEDS ORDERED: CEFEPIME HCL 1.5 GM in DEXTROSE 5%-WATER 50 ML IV SCH (18:00)
[2018-09-17] MEDS ORDERED: PROMETHAZINE HCL 25 MG SUPP.RECT PR PRN (18:12)
[2018-09-17] MEDS ORDERED: MORPHINE SULFATE 10 MG/ML INJ IM PRN (18:18)
[2018-09-17] MEDS ORDERED: FLUCONAZOLE 100 MG TABLET PO ONE (18:30)
[2018-09-17] MEDS: CEFEPIME HCL 1.5 GM in DEXTROSE 5%-WATER 50 ML IV SCH (19:28)
--- NOTE | 2018-09-17 19:43 | PDOC PROGRESS REPORT ---
Subjective Progress Note for:: 09/17/18 Subjective:: JASPREET STAFFORD is a 52 year old female with a partial past medical history of renal replacement therapy for end-stage renal failure formally on hemodialysis currently on peritoneal dialysis. 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 Hospital service was consulted for medical management. Patient was seen on morning rounds while in dialysis. She is fatigued but arousable; oriented to self, place, situation but the year 1998. She falls back to sleep several times during her conversation and cannot provide meaningful input to her HPI. ROS is limited secondary to fatigue and patient participation. Briefly discussed the patient with her mother; no new concerns today. Mother reports that she will attempt to encourage BiPAP use as the patient continues to be noncompliant with recommendations. Nursing had numerous concerns regarding the patient's mental status and somnolence. Patient is upgraded to IMCU for closer monitoring. Reason For Visit: ABDOMINAL WALL INFECTION Physical Exam Vital Signs: Temp Pulse Resp BP Pulse Ox 97.3 F 68 22 H 157/59 H 100 09/17/18 15:42 09/17/18 15:42 09/17/18 15:42 09/17/18 15:42 09/17/18 15:42 Intake & Output 09/16/18 09/17/18 09/18/18 06:59 06:59 06:59 Intake Total 740 250 Output Total 100 3700 Balance 640 -3450 Weight 154.2 kg General appearance: PRESENT: no acute distress, morbidly obese, well-developed, well-nourished. ABSENT: cooperative Head exam: PRESENT: atraumatic, normocephalic Eye exam: PRESENT: conjunctiva pink, EOMI, PERRLA. ABSENT: scleral icterus Ear exam: PRESENT: normal external ear exam Mouth exam: PRESENT: moist, tongue midline Neck exam: ABSENT: carotid bruit, JVD, lymphadenopathy, thyromegaly Respiratory exam: PRESENT: clear to auscultation shira, decreased breath sounds - Throughout, symmetrical, unlabored, other - Supplemental oxygen by nasal cannula. ABSENT: rales, rhonchi, wheezes Cardiovascular exam: PRESENT: RRR. ABSENT: diastolic murmur, rubs, systolic murmur Pulses: PRESENT: normal dorsalis pedis pul Vascular exam: PRESENT: normal capillary refill GI/Abdominal exam: PRESENT: normal bowel sounds, soft, tenderness, other - Now status post surgical debridement of large abdominal wall wound; surgical dressing in place.. ABSENT: distended, guarding, mass, organolmegaly, rebound Rectal exam: PRESENT: deferred Extremities exam: PRESENT: full ROM. ABSENT: calf tenderness, clubbing, pedal e pasquale Neurological exam: PRESENT: alert, awake, oriented to person, oriented to place, oriented to situation, CN II-XII grossly intact, other - Somnolent, wakes briefly with verbal stimuli. ABSENT: oriented to time, motor sensory deficit Psychiatric exam: PRESENT: flat affect, normal mood. ABSENT: homicidal ideation, suicidal ideation Skin exam: PRESENT: dry, warm. ABSENT: cyanosis, rash Results Laboratory Results: 09/17/18 14:48 09/17/18 14:48 09/16/18 09/16/18 09/16/18 19:25 19:25 19:25 WBC 13.4 H RBC 3.59 L Hgb 9.1 L Hct 27.8 L MCV 77 L MCH 25.3 L MCHC 32.7 RDW 18.1 H Plt Count 350 Seg Neutrophils % 76.7 Lymphocytes % 11.8 L Monocytes % 9.9 Eosinophils % 0.9 Basophils % 0.7 Absolute Neutrophils 10.3 H Absolute Lymphocytes 1.6 Absolute Monocytes 1.3 Absolute Eosinophils 0.1 Absolute Basophils 0.1 Carbonic Acid HCO3/H2CO3 Ratio ABG pH ABG pCO2 ABG pO2 ABG HCO3 ABG O2 Saturation ABG Base Excess FiO2 Sodium 131.7 L Potassium 4.7 Chloride 90 L Carbon Dioxide 22 Anion Gap 20 H BUN 74 H Creatinine 16.31 H Est GFR ( Amer) 3 L Est GFR (Non-Af Amer) 2 L Glucose 195 H Lactic Acid 1.0 Calcium 9.5 Phosphorus Magnesium Total Bilirubin 0.6 AST 13 L ALT 23 Alkaline Phosphatase 189 H Total Protein 6.1 L Albumin 2.7 L Blood Type Antibody Screen 09/16/18 09/17/18 09/17/18 19:25 07:10 07:10 WBC 14.1 H RBC 3.26 L Hgb 8.3 L Hct 25.4 L MCV 78 L MCH 25.6 L MCHC 32.8 RDW 17.9 H Plt Count 302 Seg Neutrophils % 83.0 H Lymphocytes % 6.4 L Monocytes % 8.4 Eosinophils % 1.6 Basophils % 0.6 Absolute Neutrophils 11.7 H Absolute Lymphocytes 0.9 Absolute Monocytes 1.2 Absolute Eosinophils 0.2 Absolute Basophils 0.1 Carbonic Acid HCO3/H2CO3 Ratio ABG pH ABG pCO2 ABG pO2 ABG HCO3 ABG O2 Saturation ABG Base Excess FiO2 Sodium 133.0 L Potassium 4.5 Chloride 92 L Carbon Dioxide 21 L Anion Gap 20 H BUN 76 H Creatinine 16.63 H Est GFR ( Amer) 3 L Est GFR (Non-Af Amer) 2 L Glucose 113 H Lactic Acid Calcium 9.1 Phosphorus Magnesium Total Bilirubin 0.4 AST 12 L ALT 22 Alkaline Phosphatase 156 H Total Protein 5.5 L Albumin 2.3 L Blood Type O POSITIVE Antibody Screen NEGATIVE 09/17/18 09/17/18 09/17/18 14:40 14:48 14:48 WBC 13.7 H RBC 3.31 L Hgb 8.5 L Hct 25.7 L MCV 78 L MCH 25.6 L MCHC 33.0 RDW 17.7 H Plt Count 302 Seg Neutrophils % Lymphocytes % Monocytes % Eosinophils % Basophils % Absolute Neutrophils Absolute Lymphocytes Absolute Monocytes Absolute Eosinophils Absolute Basophils Carbonic Acid 1.37 H HCO3/H2CO3 Ratio 16:1 ABG pH 7.32 L ABG pCO2 45.4 H ABG pO2 137.1 H ABG HCO3 22.8 ABG O2 Saturation 98.5 H ABG Base Excess -3.2 FiO2 28% Sodium 135.8 L Potassium 4.0 Chloride 94 L Carbon Dioxide 24 Anion Gap 18 BUN 51 H D Creatinine 11.63 H Est GFR ( Amer) 4 L Est GFR (Non-Af Amer) 3 L Glucose 168 H Lactic Acid Calcium 8.8 Phosphorus 5.6 H Magnesium 2.1 Total Bilirubin 0.4 AST 13 L ALT 22 Alkaline Phosphatase 172 H Total Protein 5.7 L Albumin 2.4 L Blood Type Antibody Screen 09/16/18 19:25 Troponin I 0.020 Impressions: Chest X-Ray 09/16/18 19:19 IMPRESSION: 1. No acute pulmonary findings. Assessment and Plan - Diagnosis (1) Calciphylaxis Is this a current diagnosis for this admission?: Yes Plan: Blood cultures are pending. Wound cultures demonstrate gram-negative rods. Primary management per the surgical team. Now status post surgical debridement; wound care per surgery's recommendations. Dr. Casper has started the patient on IV cefepime following dialysis. (2) ESRD (end stage renal disease) on dialysis Is this a current diagnosis for this admission?: Yes Plan: Appears euvolemic, without acidosis or hyperkalemia Nephrology is consulted; did receive hemodialysis today. Continue PhosLo, Sensipar, and Calcitrol. (3) Morbid obesity with BMI of 40.0-44.9, adult Is this a current diagnosis for this admission?: Yes Plan: Lifestyle modification and dietary discretion are advised. Patient is placed on a clear liquid; will advance once cleared by surgery. Patient currently with nausea and vomiting to resolve prior to advancing diet. Just her dietitian is consulted. (4) CHF (congestive heart failure) Qualifiers: Heart failure type: unspecified Heart failure chronicity: acute Qualified Code(s): I50.9 - Heart failure, unspecified Is this a current diagnosis for this admission?: Yes Plan: Diastolic, compensated, avoid uncontrolled hypertension, tachycardia or fluid status. BiPAP ordered; encouraged use. Continue carvedilol 25 mg every 12 hours. Continue home dose of hydralazine 100 mg 3 times daily for blood pressure management. (5) Cirrhosis Is this a current diagnosis for this admission?: Yes Plan: Continue home dose lactulose 30 mg every 6 hours. (6) Diabetes mellitus type 2 in obese Is this a current diagnosis for this admission?: Yes Plan: One third dosing home dose Lantus. Accu-Cheks every 6 hours with sliding scale insulin. Hypoglycemia protocol in place. Registered dietitian is consulted. Patient is currently ordered clear liquid diet; continues to have nausea and vomiting. Anticipate will need to requir increase her Lantus once diet advances. E (7) Hypertension Qualifiers: Hypertension type: essential hypertension Qualified Code(s): I10 - Essential (primary) hypertension Is this a current diagnosis for this admission?: Yes Plan: Continue home dose Coreg and hydralazine IV hydralazine as needed for blood pressure control. (8) Altered mental status Is this a current diagnosis for this admission?: Yes Plan: Likely multifactorial secondary to uremia, pain, narcotic medications, and hypercapnia. Dialysis per nephrology's expertise. Limit narcotic medications as able, although patient did undergo extensive surgical debridement of abdominal wound today. Encourage BiPAP use. - Time Time Spent with patient: 25-34 minutes Medications reviewed and adjusted accordingly: Yes
--- NOTE | 2018-09-17 19:44 | Progress Note Acknowledgement ---
Progress Note Acknowledgement Progess Note Acknowledgement: I, the undersigned member of the medical staff with appropriate privileges and with supervisory authority over Na Melgoza, a [facility] allied health professional, acknowledge that I have reviewed the progress notes entered on this patient, and in my professional judgment believe that the assessment made and/or any care evidenced was appropriate
[2018-09-17] MEDS ORDERED: (PENDING PHARMACY ID) (Lactulose [Constulose 10 Gm/15 Ml Oral Solution] 30 ML) PO SCH (19:45)
[2018-09-17 20:49] LABS: CREATINE KINASE MB 1.23 ng/mL (<4.55); TROPONIN I 0.017 ng/mL
[2018-09-17] MEDS: HYDRALAZINE HCL 50 MG TABLET PO SCH (21:24)
[2018-09-17] MEDS: ONDANSETRON 4 MG TAB.RAPDIS PO PRN (21:41)
[2018-09-18] MEDS: LACTULOSE SYRUP 20 GM/30 ML UDCUP PO SCH ×4 (00:54→18:18)
[2018-09-18] MEDS: INSULIN LISPRO 100 UNIT/ML 3 ML VIAL SUBCUT SCH ×5 (00:54→21:50)
[2018-09-18 02:58] LABS: CREATINE KINASE MB 1.28 ng/mL (<4.55); TROPONIN I 0.018 ng/mL
[2018-09-18] MEDS: HYDRALAZINE HCL 50 MG TABLET PO SCH ×3 (05:39→21:35)
[2018-09-18] MEDS ORDERED: MORPHINE SULFATE 10 MG/ML INJ IV PRN (06:34)
--- NOTE | 2018-09-18 08:08 | EKG REPORT ---
SEVERITY:- ABNORMAL ECG - SINUS RHYTHM FIRST DEGREE AV BLOCK INCOMPLETE LEFT BUNDLE BRANCH BLOCK : Confirmed by: Dorothea Wadsworth MD 17-Sep-2018 21:29:50
[2018-09-18] MEDS: CALCIUM ACETATE 667 MG CAPSULE PO SCH ×2 (08:21→11:39)
[2018-09-18] MEDS: IPRATROPIUM/ALBUTEROL 0.5-2.5 MG/3 ML AMPUL NEB SCH ×2 (08:29→20:37)
[2018-09-18 09:19] LABS: HEMATOCRIT 24.6 % (36.0-47.0); HEMOGLOBIN 8.2 g/dL (12.0-15.5); MEAN CORPUSCULAR HEMOGLOBIN 25.7 pg (27.0-33.4); MEAN CORPUSCULAR HGB CONC 33.3 g/dL (32.0-36.0); MEAN CORPUSCULAR VOLUME 77 fl (80-97); PLATELET COUNT 285 10^3/uL (150-450); RED BLOOD COUNT 3.18 10^6/uL (3.72-5.28); RED CELL DISTRIBUTION WIDTH 18.3 % (11.5-14.0); WHITE BLOOD COUNT 14.6 10^3/uL (4.0-10.5)
[2018-09-18] MEDS: CARVEDILOL 12.5 MG TABLET PO SCH ×2 (09:35→21:35)
[2018-09-18] MEDS: FLUTICASONE/VILANTEROL 200-25 MCG/DOSE IH SCH (09:37)
[2018-09-18] MEDS: ENOXAPARIN SODIUM INJ 30 MG/0.3 ML DISP.SYRIN SUBCUT SCH (09:37)
[2018-09-18] MEDS: CALCITRIOL 0.25 MCG CAPSULE PO SCH (09:37)
[2018-09-18] MEDS: METOCLOPRAMIDE HCL 10 MG TABLET PO SCH ×3 (09:38→18:09)
[2018-09-18 09:44] LABS: ABSOLUTE MONOCYTES # (MANUAL) 0.7 10^3/uL (0.1-1.4); BASOPHILS % (MANUAL) 0 % (0-2); EOSINOPHILS % (MANUAL) 2 % (0-6); LYMPHOCYTES % (MANUAL) 7 % (13-45); METAMYELOCYTES % (MANUAL) 1 % (0); MONOCYTES % (MANUAL) 5 % (3-13); NUCLEATED RED BLOOD CELLS 1 /100 WBC (0); SEGMENTED NEUTROPHILS % (MAN) 85 % (42-78); TOTAL CELLS COUNTED 100
[2018-09-18 09:45] LABS: ANISOCYTOSIS 1+; POLYCHROMASIA SLIGHT
[2018-09-18 09:46] LABS: BLOOD UREA NITROGEN 57 mg/dL (7-20); CALCIUM 8.7 mg/dL (8.4-10.2); CARBON DIOXIDE 20 mmol/L (22-30); CHLORIDE 93 mmol/L (98-107); CREATINE KINASE 26 U/L (30-135); GLUCOSE 180 mg/dL (75-110); PLATELET COMMENT ADEQUATE; POTASSIUM 4.1 mmol/L (3.6-5.0)
--- NOTE | 2018-09-18 09:46 | PDOC PROGRESS REPORT ---
Subjective Progress Note for:: 09/18/18 Subjective:: Pain with dressing changes but otherwise comfortable. Reason For Visit: ABDOMINAL WALL INFECTION Physical Exam Vital Signs: Temp Pulse Resp BP Pulse Ox 98.1 F 69 16 127/62 H 93 09/18/18 07:55 09/18/18 08:33 09/18/18 08:33 09/18/18 07:55 09/18/18 08:33 Intake & Output 09/17/18 09/18/18 09/19/18 06:59 06:59 06:59 Intake Total 740 400 Output Total 100 3700 Balance 640 -3300 Weight 154.2 kg 150.9 kg General appearance: PRESENT: no acute distress, cooperative Respiratory exam: PRESENT: wheezes Cardiovascular exam: PRESENT: RRR GI/Abdominal exam: PRESENT: other - Abdominal wound appears very clean and there is no purulent drainage. No necrotic tissue. Results Laboratory Results: 09/17/18 09/17/18 09/17/18 14:40 14:48 14:48 WBC 13.7 H RBC 3.31 L Hgb 8.5 L Hct 25.7 L MCV 78 L MCH 25.6 L MCHC 33.0 RDW 17.7 H Plt Count 302 Seg Neutrophils % Lymphocytes % Monocytes % Eosinophils % Basophils % Absolute Neutrophils Absolute Lymphocytes Absolute Monocytes Absolute Eosinophils Absolute Basophils Carbonic Acid 1.37 H HCO3/H2CO3 Ratio 16:1 ABG pH 7.32 L ABG pCO2 45.4 H ABG pO2 137.1 H ABG HCO3 22.8 ABG O2 Saturation 98.5 H ABG Base Excess -3.2 FiO2 28% Sodium 135.8 L Potassium 4.0 Chloride 94 L Carbon Dioxide 24 Anion Gap 18 BUN 51 H D Creatinine 11.63 H Est GFR ( Amer) 4 L Est GFR (Non-Af Amer) 3 L Glucose 168 H Calcium 8.8 Phosphorus 5.6 H Magnesium 2.1 Total Bilirubin 0.4 AST 13 L ALT 22 Alkaline Phosphatase 172 H Total Protein 5.7 L Albumin 2.4 L 09/18/18 09:00 WBC RBC Hgb Hct MCV MCH MCHC RDW Plt Count Seg Neutrophils % Not Reportable Lymphocytes % Not Reportable Monocytes % Not Reportable Eosinophils % Not Reportable Basophils % Not Reportable Absolute Neutrophils Not Reportable Absolute Lymphocytes Not Reportable Absolute Monocytes Not Reportable Absolute Eosinophils Not Reportable Absolute Basophils Not Reportable Carbonic Acid HCO3/H2CO3 Ratio ABG pH ABG pCO2 ABG pO2 ABG HCO3 ABG O2 Saturation ABG Base Excess FiO2 Sodium Potassium Chloride Carbon Dioxide Anion Gap BUN Creatinine Est GFR ( Amer) Est GFR (Non-Af Amer) Glucose Calcium Phosphorus Magnesium Total Bilirubin AST ALT Alkaline Phosphatase Total Protein Albumin 09/16/18 09/17/18 09/17/18 19:25 20:08 20:08 Creatine Kinase 24 L CK-MB (CK-2) 1.23 Troponin I 0.020 0.017 09/18/18 09/18/18 02:20 02:20 Creatine Kinase 21 L CK-MB (CK-2) 1.28 Troponin I 0.018 Impressions: Chest X-Ray 09/16/18 19:19 IMPRESSION: 1. No acute pulmonary findings. Assessment & Plan - Diagnosis (1) Infected abdominal wound Is this a current diagnosis for this admission?: Yes Plan: Status post excisional debridement. The wound appears very clean. We will start a wound VAC. Preliminary cultures demonstrate E. coli. Intraoperative cultures are still not finalized. Would greatly appreciate hospitalist and nephrology input concerning fine-tuning antibiotic regimen.
[2018-09-18 09:55] LABS: ANION GAP 22 (5-19); CREATINE KINASE MB 1.12 ng/mL (<4.55); TROPONIN I 0.024 ng/mL
[2018-09-18] MEDS ORDERED: (PENDING PHARMACY ID) (Hydralazine Hcl [Hydralazine Hcl] 100 MG) PO SCH (10:00)
[2018-09-18] MEDS ORDERED: (PENDING PHARMACY ID) (Metoclopramide Hcl [Metoclopramide Hcl] 5 MG) PO SCH (10:00)
[2018-09-18] MEDS ORDERED: OXYCODONE HCL IR 5 MG TABLET PO PRN (10:35)
[2018-09-18] MEDS: PREGABALIN 75 MG CAPSULE PO SCH ×2 (11:39→21:35)
--- NOTE | 2018-09-18 14:02 | PDOC PROGRESS REPORT ---
Subjective Progress Note for:: 09/18/18 Reason For Visit: Patient seen today. Her pain from a right abdominal ulcer seems to be better and she is not grimacing or showing much pain like she did the other day. She tolerated hemodialysis yesterday relatively well which is encouraging. She denies any history of fever or chills. The wound is been closely followed by surgery. Her wound cultures now growing E. coli which is pansensitive. Labs and medications were reviewed. Physical Exam Vital Signs: Temp Pulse Resp BP Pulse Ox 98.1 F 80 16 151/62 H 100 09/18/18 12:32 09/18/18 12:32 09/18/18 12:32 09/18/18 12:32 09/18/18 12:32 Intake & Output 09/17/18 09/18/18 09/19/18 06:59 06:59 06:59 Intake Total 740 400 Output Total 100 3700 Balance 640 -3300 Weight 154.2 kg 150.9 kg General appearance: PRESENT: no acute distress Respiratory exam: PRESENT: clear to auscultation shira, decreased breath sounds. ABSENT: crackles Cardiovascular exam: PRESENT: +S1, +S2 GI/Abdominal exam: PRESENT: normal bowel sounds, soft. ABSENT: organomegaly, tenderness Extremities exam: PRESENT: pedal edema Neurological exam: PRESENT: alert, awake, oriented to person, oriented to place, oriented to time Psychiatric exam: PRESENT: appropriate affect Results Laboratory Results: 09/18/18 09:00 09/18/18 09:00 09/17/18 09/17/18 09/17/18 14:40 14:48 14:48 WBC 13.7 H RBC 3.31 L Hgb 8.5 L Hct 25.7 L MCV 78 L MCH 25.6 L MCHC 33.0 RDW 17.7 H Plt Count 302 Seg Neutrophils % Lymphocytes % Monocytes % Eosinophils % Basophils % Absolute Neutrophils Absolute Lymphocytes Absolute Monocytes Absolute Eosinophils Absolute Basophils Carbonic Acid 1.37 H HCO3/H2CO3 Ratio 16:1 ABG pH 7.32 L ABG pCO2 45.4 H ABG pO2 137.1 H ABG HCO3 22.8 ABG O2 Saturation 98.5 H ABG Base Excess -3.2 FiO2 28% Sodium 135.8 L Potassium 4.0 Chloride 94 L Carbon Dioxide 24 Anion Gap 18 BUN 51 H D Creatinine 11.63 H Est GFR ( Amer) 4 L Est GFR (Non-Af Amer) 3 L Glucose 168 H Calcium 8.8 Phosphorus 5.6 H Magnesium 2.1 Total Bilirubin 0.4 AST 13 L ALT 22 Alkaline Phosphatase 172 H Total Protein 5.7 L Albumin 2.4 L PTH Intact 09/18/18 09/18/18 09/18/18 09:00 09:00 09:00 WBC 14.6 H RBC 3.18 L Hgb 8.2 L Hct 24.6 L MCV 77 L MCH 25.7 L MCHC 33.3 RDW 18.3 H Plt Count 285 Seg Neutrophils % Not Reportable Lymphocytes % Not Reportable Monocytes % Not Reportable Eosinophils % Not Reportable Basophils % Not Reportable Absolute Neutrophils Not Reportable Absolute Lymphocytes Not Reportable Absolute Monocytes Not Reportable Absolute Eosinophils Not Reportable Absolute Basophils Not Reportable Carbonic Acid HCO3/H2CO3 Ratio ABG pH ABG pCO2 ABG pO2 ABG HCO3 ABG O2 Saturation ABG Base Excess FiO2 Sodium 135.2 L Potassium 4.1 Chloride 93 L Carbon Dioxide 20 L Anion Gap 22 H BUN 57 H Creatinine 12.54 H Est GFR ( Amer) 4 L Est GFR (Non-Af Amer) 3 L Glucose 180 H Calcium 8.7 Phosphorus 6.0 H Magnesium 2.2 Total Bilirubin AST ALT Alkaline Phosphatase Total Protein Albumin PTH Intact 670.8 H 09/16/18 18:53 Abdomen - Abscess Gram Stain - Final 09/16/18 18:53 Abdomen - Abscess Wound Culture - Final Escherichia Coli Prevotella Species Anaerococcus (Peptostrep) Sp. 09/16/18 09/17/18 09/17/18 19:25 20:08 20:08 Creatine Kinase 24 L CK-MB (CK-2) 1.23 Troponin I 0.020 0.017 09/18/18 09/18/18 09/18/18 02:20 02:20 09:00 Creatine Kinase 21 L 26 L CK-MB (CK-2) 1.28 Troponin I 0.018 09/18/18 09:00 Creatine Kinase CK-MB (CK-2) 1.12 Troponin I 0.024 Impressions: Chest X-Ray 09/16/18 19:19 IMPRESSION: 1. No acute pulmonary findings. Assessment & Plan - Diagnosis (1) Calciphylaxis Is this a current diagnosis for this admission?: Yes Plan: Patient has been begun on sodium thiosulfate postdialysis and will see how she responds to this in the long run. She is also on phosphate binders and calcimimetics. (2) ESRD (end stage renal disease) on dialysis Is this a current diagnosis for this admission?: Yes Plan: Plan for dialysis in the morning. Orders being placed. (3) Infected abdominal wound Is this a current diagnosis for this admission?: Yes Plan: Has shown lot of sloughing and early gangrene which were debrided in the OR by Dr. Ingram. Now growing E. coli. Patient on IV antibiotics in the form of cefepime. (4) Morbid obesity with BMI of 40.0-44.9, adult Is this a current diagnosis for this admission?: Yes Plan: Status quo. (5) Abdominal pain Qualifiers: Abdominal location: right lower quadrant Qualified Code(s): R10.31 - Right lower quadrant pain Plan: Better on current pain pain management. (6) Abdominal wall mass of right lower quadrant Plan: Secondary to calciphylaxis. Open wound with sloughing and early gangrene which was debrided in the OR on current admission. (7) Anemia in chronic kidney disease (CKD) Qualifiers: Chronic kidney disease stage: unspecified stage Qualified Code(s): N18.9 - Chronic kidney disease, unspecified; D63.1 - Anemia in chronic kidney disease Plan: Adjust erythropoietin. (8) Diabetes mellitus type 2 in obese Is this a current diagnosis for this admission?: Yes Plan: Advised tight control. (9) Hypertension Qualifiers: Hypertension type: essential hypertension Qualified Code(s): I10 - Essential (primary) hypertension Is this a current diagnosis for this admission?: Yes Plan: Controlled. Some variation to pain issues.
[2018-09-18] MEDS: OXYCODONE HCL IR 5 MG TABLET PO PRN ×3 (14:22→21:39)
[2018-09-18] MEDS: SEVELAMER HCL 800 MG TABLET PO SCH (16:44)
[2018-09-18] MEDS: CINACALCET HCL 30 MG TABLET PO SCH (18:09)
[2018-09-18] MEDS: NYSTATIN TOPICAL POWDER 15 GM TP SCH (18:09)
--- NOTE | 2018-09-18 19:33 | PDOC PROGRESS REPORT ---
Subjective Progress Note for:: 09/18/18 Subjective:: JASPREET STAFFORD is a 52 year old female with a partial past medical history of renal replacement therapy for end-stage renal failure formally on hemodialysis currently on peritoneal dialysis. 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 Hospital service has assumed care. Patient was seen on morning rounds. She is found resting in bed comfortably on supplemental oxygen by nasal cannula. She reports that her pain is currently well controlled and she has no new questions or concerns at this time. No concerns per nursing. Reason For Visit: ABDOMINAL WALL INFECTION Physical Exam Vital Signs: Temp Pulse Resp BP Pulse Ox 97.5 F 73 18 125/69 100 09/18/18 16:16 09/18/18 16:16 09/18/18 16:16 09/18/18 16:16 09/18/18 16:16 Intake & Output 09/17/18 09/18/18 09/19/18 06:59 06:59 06:59 Intake Total 740 400 610 Output Total 100 3700 Balance 640 -3300 610 Weight 154.2 kg 150.9 kg 150.9 kg General appearance: PRESENT: no acute distress, morbidly obese, well-developed, well-nourished Head exam: PRESENT: atraumatic, normocephalic Eye exam: PRESENT: conjunctiva pink, EOMI, PERRLA. ABSENT: scleral icterus Ear exam: PRESENT: normal external ear exam Mouth exam: PRESENT: moist, tongue midline Neck exam: ABSENT: carotid bruit, JVD, lymphadenopathy, thyromegaly Respiratory exam: PRESENT: clear to auscultation shira, decreased breath sounds - Bibasilar secondary to body habitus, symmetrical, unlabored, other - Supplemental oxygen via nasal cannula. ABSENT: rales, rhonchi, wheezes Cardiovascular exam: PRESENT: RRR, +S1, +S2. ABSENT: diastolic murmur, rubs, systolic murmur Pulses: PRESENT: normal dorsalis pedis pul Vascular exam: PRESENT: normal capillary refill GI/Abdominal exam: PRESENT: normal bowel sounds, soft, tenderness - Surgical incision site. ABSENT: distended, guarding, mass, organolmegaly, rebound Rectal exam: PRESENT: deferred Extremities exam: PRESENT: full ROM. ABSENT: calf tenderness, clubbing, pedal edema Neurological exam: PRESENT: alert, awake, oriented to person, oriented to place, oriented to time, oriented to situation, CN II-XII grossly intact. ABSENT: motor sensory deficit Psychiatric exam: PRESENT: appropriate affect, normal mood. ABSENT: homicidal ideation, suicidal ideation Skin exam: PRESENT: dry, warm, other - Wound not directly visualized; surgical dressing in place.. ABSENT: cyanosis, rash Results Laboratory Results: 09/18/18 09:00 09/18/18 09:00 09/18/18 09/18/18 09/18/18 09:00 09:00 09:00 WBC 14.6 H RBC 3.18 L Hgb 8.2 L Hct 24.6 L MCV 77 L MCH 25.7 L MCHC 33.3 RDW 18.3 H Plt Count 285 Seg Neutrophils % Not Reportable Lymphocytes % Not Reportable Monocytes % Not Reportable Eosinophils % Not Reportable Basophils % Not Reportable Absolute Neutrophils Not Reportable Absolute Lymphocytes Not Reportable Absolute Monocytes Not Reportable Absolute Eosinophils Not Reportable Absolute Basophils Not Reportable Sodium 135.2 L Potassium 4.1 Chloride 93 L Carbon Dioxide 20 L Anion Gap 22 H BUN 57 H Creatinine 12.54 H Est GFR ( Amer) 4 L Est GFR (Non-Af Amer) 3 L Glucose 180 H Calcium 8.7 Phosphorus 6.0 H Magnesium 2.2 PTH Intact 670.8 H 09/16/18 18:53 Abdomen - Abscess Gram Stain - Final 09/16/18 18:53 Abdomen - Abscess Wound Culture - Final Escherichia Coli Prevotella Species Anaerococcus (Peptostrep) Sp. 09/16/18 09/17/18 09/17/18 19:25 20:08 20:08 Creatine Kinase 24 L CK-MB (CK-2) 1.23 Troponin I 0.020 0.017 09/18/18 09/18/18 09/18/18 02:20 02:20 09:00 Creatine Kinase 21 L 26 L CK-MB (CK-2) 1.28 Troponin I 0.018 09/18/18 09:00 Creatine Kinase CK-MB (CK-2) 1.12 Troponin I 0.024 Impressions: Chest X-Ray 09/16/18 19:19 IMPRESSION: 1. No acute pulmonary findings. Assessment and Plan - Diagnosis (1) Calciphylaxis Is this a current diagnosis for this admission?: Yes Plan: Blood cultures are pending. Wound cultures demonstrate multiple organisms; gram-negative rods, Corynebacterium, E. coli, Prevotella species, Pepto strep. Primary management per the surgical team. Now status post surgical debridement; wound care per surgery's recommendations. Plan for wound VAC. Dr. Casper has started the patient on IV cefepime following dialysis. (2) ESRD (end stage renal disease) on dialysis Is this a current diagnosis for this admission?: Yes Plan: Appears euvolemic, without acidosis or hyperkalemia Nephrology is consulted; and receiving hemodialysis per their expertise. Continue PhosLo, Sensipar, and Calcitrol. (3) Morbid obesity with BMI of 40.0-44.9, adult Is this a current diagnosis for this admission?: Yes Plan: Lifestyle modification and dietary discretion are advised. Patient is placed on a clear liquid; will advance once cleared by surgery. Patient currently with nausea and vomiting to resolve prior to advancing diet. Just her dietitian is consulted. (4) CHF (congestive heart failure) Qualifiers: Heart failure type: unspecified Heart failure chronicity: acute Qualified Code(s): I50.9 - Heart failure, unspecified Is this a current diagnosis for this admission?: Yes Plan: Diastolic, compensated, avoid uncontrolled hypertension, tachycardia or fluid status. BiPAP ordered; encouraged use. Continue carvedilol 25 mg every 12 hours. Continue home dose of hydralazine 100 mg 3 times daily for blood pressure management. (5) Cirrhosis Is this a current diagnosis for this admission?: Yes Plan: Continue home dose lactulose 30 mg every 6 hours. (6) Diabetes mellitus type 2 in obese Is this a current diagnosis for this admission?: Yes Plan: One third dosing home dose Lantus; monitor for need to increase not the patient is tolerating p.o. Accu-Cheks every 6 hours with sliding scale insulin. Hypoglycemia protocol in place. Registered dietitian is consulted. Dialysis diet. (7) Hypertension Qualifiers: Hypertension type: essential hypertension Qualified Code(s): I10 - Essenti al (primary) hypertension Is this a current diagnosis for this admission?: Yes Plan: Continue home dose Coreg and hydralazine IV hydralazine as needed for blood pressure control. (8) Altered mental status Is this a current diagnosis for this admission?: Yes Plan: Resolved; now at baseline. Likely multifactorial secondary to uremia, pain, narcotic medications, and hypercapnia. Dialysis per nephrology's expertise. Have discontinued IV morphine and transitioned to sliding scale oxycodone with adequate relief of pain and improved mentation. Encourage BiPAP use. - Time Time Spent with patient: 25-34 minutes Medications reviewed and adjusted accordingly: Yes Anticipated discharge: Home
[2018-09-18] MEDS: INSULIN GLARGINE,HUM.REC.ANLOG 1,000 UNIT/10 ML VIAL SUBCUT SCH (21:50)
[2018-09-19] MEDS: LACTULOSE SYRUP 20 GM/30 ML UDCUP PO SCH ×3 (00:33→12:33)
[2018-09-19] MEDS: OXYCODONE HCL IR 5 MG TABLET PO PRN ×3 (04:19→13:53)
[2018-09-19] MEDS ORDERED: EPOETIN ALFA INJ 20000 UNIT/1 ML VIAL (RENAL) IV PRN (05:00)
[2018-09-19 05:52] LABS: HEMATOCRIT 24.1 % (36.0-47.0); MEAN CORPUSCULAR HEMOGLOBIN 25.8 pg (27.0-33.4); MEAN CORPUSCULAR HGB CONC 33.4 g/dL (32.0-36.0); MEAN CORPUSCULAR VOLUME 77 fl (80-97); PLATELET COUNT 275 10^3/uL (150-450); RED BLOOD COUNT 3.12 10^6/uL (3.72-5.28); RED CELL DISTRIBUTION WIDTH 18.3 % (11.5-14.0); WHITE BLOOD COUNT 15.7 10^3/uL (4.0-10.5)
[2018-09-19 06:07] LABS: BLOOD UREA NITROGEN 61 mg/dL (7-20); CALCIUM 8.9 mg/dL (8.4-10.2); GLUCOSE 137 mg/dL (75-110)
[2018-09-19 06:14] LABS: CARBON DIOXIDE 20 mmol/L (22-30); CHLORIDE 94 mmol/L (98-107)
[2018-09-19 06:19] LABS: ANION GAP 22 (5-19)
[2018-09-19 06:38] LABS: ABSOLUTE LYMPHOCYTES# (MANUAL) 2.4 10^3/uL (0.5-4.7); ABSOLUTE MONOCYTES # (MANUAL) 0.9 10^3/uL (0.1-1.4); BASOPHILS % (MANUAL) 0 % (0-2); EOSINOPHILS % (MANUAL) 0 % (0-6); HYPERSEGMENTED NEUTROPHILS PRESENT; LYMPHOCYTES % (MANUAL) 15 % (13-45); MONOCYTES % (MANUAL) 6 % (3-13); SEGMENTED NEUTROPHILS % (MAN) 79 % (42-78); TOTAL CELLS COUNTED 100
[2018-09-19 06:40] LABS: ANISOCYTOSIS 1+; PLATELET CLUMPS PRESENT; PLATELET COMMENT ADEQUATE; POLYCHROMASIA SLIGHT
[2018-09-19] MEDS: HYDRALAZINE HCL 50 MG TABLET PO SCH ×3 (06:56→21:26)
[2018-09-19] MEDS: INSULIN LISPRO 100 UNIT/ML 3 ML VIAL SUBCUT SCH ×4 (07:42→23:12)
[2018-09-19] MEDS: SEVELAMER HCL 800 MG TABLET PO SCH ×3 (07:42→17:47)
[2018-09-19] MEDS ORDERED: EPOETIN ALFA-EPBX 20,000 UNITS (ESRD) in SYRINGE IV PRN (07:45)
[2018-09-19] MEDS: IPRATROPIUM/ALBUTEROL 0.5-2.5 MG/3 ML AMPUL NEB SCH ×2 (09:06→20:20)
--- NOTE | 2018-09-19 10:37 | PDOC PROGRESS REPORT ---
Subjective Progress Note for:: 09/19/18 Reason For Visit: ABDOMINAL WALL INFECTION Physical Exam Vital Signs: Temp Pulse Resp BP Pulse Ox 98.3 F 73 16 168/93 H 99 09/18/18 23:54 09/19/18 07:00 09/18/18 23:54 09/18/18 23:54 09/18/18 23:54 Intake & Output 09/18/18 09/19/18 09/20/18 06:59 06:59 06:59 Intake Total 400 932 Output Total 3700 Balance -3300 932 Weight 140.6 kg 141.7 kg Head exam: PRESENT: normocephalic Eye exam: PRESENT: EOMI Ear exam: PRESENT: normal external ear exam Mouth exam: PRESENT: moist Teeth exam: PRESENT: poor dentation Neck exam: PRESENT: full ROM Respiratory exam: PRESENT: clear to auscultation shira Cardiovascular exam: PRESENT: RRR GI/Abdominal exam: PRESENT: soft, other - wound vac in place min cellulitis Rectal exam: PRESENT: deferred Gentrourinary exam: PRESENT: other Extremities exam: PRESENT: full ROM Musculoskeletal exam: PRESENT: full ROM Neurological exam: PRESENT: other Psychiatric exam: PRESENT: other Skin exam: PRESENT: dry Results Laboratory Results: 09/19/18 04:57 09/19/18 04:57 09/19/18 09/19/18 04:57 04:57 WBC 15.7 H RBC 3.12 L Hgb 8.0 L Hct 24.1 L MCV 77 L MCH 25.8 L MCHC 33.4 RDW 18.3 H Plt Count 275 Seg Neutrophils % Not Reportable Lymphocytes % Not Reportable Monocytes % Not Reportable Eosinophils % Not Reportable Basophils % Not Reportable Absolute Neutrophils Not Reportable Absolute Lymphocytes Not Reportable Absolute Monocytes Not Reportable Absolute Eosinophils Not Reportable Absolute Basophils Not Reportable Sodium 136.0 L Potassium 4.0 Chloride 94 L Carbon Dioxide 20 L Anion Gap 22 H BUN 61 H Creatinine 14.75 H Est GFR ( Amer) 3 L Est GFR (Non-Af Amer) 3 L Glucose 137 H Calcium 8.9 09/16/18 21:30 Abdomen - Tissue (Surgical) Gram Stain - Final 09/16/18 18:53 Abdomen - Abscess Gram Stain - Final 09/16/18 18:53 Abdomen - Abscess Wound Culture - Final Escherichia Coli Prevotella Species Anaerococcus (Peptostrep) Sp. 09/16/18 09/17/18 09/17/18 19:25 20:08 20:08 Creatine Kinase 24 L CK-MB (CK-2) 1.23 Troponin I 0.020 0.017 09/18/18 09/18/18 09/18/18 02:20 02:20 09:00 Creatine Kinase 21 L 26 L CK-MB (CK-2) 1.28 Troponin I 0.018 09/18/18 09:00 Creatine Kinase CK-MB (CK-2) 1.12 Troponin I 0.024 Impressions: Chest X-Ray 09/16/18 19:19 IMPRESSION: 1. No acute pulmonary findings. Assessment & Plan - Diagnosis (1) Calciphylaxis Is this a current diagnosis for this admission?: Yes - Plan Summary Plan Summary: wound vac in place will change vac on saturday.
[2018-09-19] MEDS: ENOXAPARIN SODIUM INJ 30 MG/0.3 ML DISP.SYRIN SUBCUT SCH (12:32)
[2018-09-19] MEDS: METOCLOPRAMIDE HCL 10 MG TABLET PO SCH ×3 (12:32→17:47)
[2018-09-19] MEDS: PREGABALIN 75 MG CAPSULE PO SCH ×2 (12:51→21:26)
[2018-09-19] MEDS: CARVEDILOL 12.5 MG TABLET PO SCH ×2 (12:51→21:26)
[2018-09-19] MEDS: FLUTICASONE/VILANTEROL 200-25 MCG/DOSE IH SCH (12:51)
[2018-09-19] MEDS: NYSTATIN TOPICAL POWDER 15 GM TP SCH ×3 (12:52→17:47)
--- NOTE | 2018-09-19 14:51 | PDOC PROGRESS REPORT ---
Subjective Progress Note for:: 09/19/18 Reason For Visit: Patient seen on dialysis today. She is undergoing dialysis given that she has some pain and intolerability. However she is continuing to do dialysis. Vital signs are stable. Labs and medications were reviewed. Dialysis orders were reviewed with the treating dialysis nurse. Physical Exam Vital Signs: Temp Pulse Resp BP Pulse Ox 97.4 F 71 18 124/58 L 100 09/19/18 13:16 09/19/18 13:16 09/19/18 13:16 09/19/18 13:16 09/19/18 13:16 Intake & Output 09/18/18 09/19/18 09/20/18 06:59 06:59 06:59 Intake Total 400 932 100 Output Total 3700 Balance -3300 932 100 Weight 140.6 kg 141.7 kg General appearance: PRESENT: no acute distress Respiratory exam: PRESENT: clear to auscultation shira. ABSENT: crackles Cardiovascular exam: PRESENT: +S1, +S2 GI/Abdominal exam: PRESENT: normal bowel sounds, soft. ABSENT: organomegaly, tenderness Extremities exam: PRESENT: pedal edema Neurological exam: PRESENT: alert, awake, oriented to person, oriented to place, oriented to time Psychiatric exam: PRESENT: appropriate affect Results Laboratory Results: 09/19/18 04:57 09/19/18 04:57 09/19/18 09/19/18 04:57 04:57 WBC 15.7 H RBC 3.12 L Hgb 8.0 L Hct 24.1 L MCV 77 L MCH 25.8 L MCHC 33.4 RDW 18.3 H Plt Count 275 Seg Neutrophils % Not Reportable Lymphocytes % Not Reportable Monocytes % Not Reportable Eosinophils % Not Reportable Basophils % Not Reportable Absolute Neutrophils Not Reportable Absolute Lymphocytes Not Reportable Absolute Monocytes Not Reportable Absolute Eosinophils Not Reportable Absolute Basophils Not Reportable Sodium 136.0 L Potassium 4.0 Chloride 94 L Carbon Dioxide 20 L Anion Gap 22 H BUN 61 H Creatinine 14.75 H Est GFR ( Amer) 3 L Est GFR (Non-Af Amer) 3 L Glucose 137 H Calcium 8.9 09/16/18 21:30 Abdomen - Tissue (Surgical) Gram Stain - Final 09/16/18 21:30 Abdomen - Tissue (Surgical) Wound Culture - Final Escherichia Coli Corynebacterium Species Anaerococcus (Peptostrep) Sp. Prevotella Species 09/16/18 18:53 Abdomen - Abscess Gram Stain - Final 09/16/18 18:53 Abdomen - Abscess Wound Culture - Final Escherichia Coli Prevotella Species Anaerococcus (Peptostrep) Sp. 09/16/18 09/17/18 09/17/18 19:25 20:08 20:08 Creatine Kinase 24 L CK-MB (CK-2) 1.23 Troponin I 0.020 0.017 09/18/18 09/18/18 09/18/18 02:20 02:20 09:00 Creatine Kinase 21 L 26 L CK-MB (CK-2) 1.28 Troponin I 0.018 09/18/18 09:00 Creatine Kinase CK-MB (CK-2) 1.12 Troponin I 0.024 Impressions: Chest X-Ray 09/16/18 19:19 IMPRESSION: 1. No acute pulmonary findings. Assessment & Plan - Diagnosis (1) Calciphylaxis Is this a current diagnosis for this admission?: Yes Plan: Patient has been begun on sodium thiosulfate postdialysis and will see how she responds to this in the long run. She is also on phosphate binders and calcimimetics. (2) ESRD (end stage renal disease) on dialysis Is this a current diagnosis for this admission?: Yes Plan: Patient currently undergoing dialysis. Vital signs are stable. Dialysis is being supervised to ensure safe and smooth procedure. Plan to remove 1 to 2 L as tolerated. Dialysis orders were reviewed with the treating dialysis nurse. Continue on sodium thiosulfate postdialysis. (3) Infected abdominal wound Is this a current diagnosis for this admission?: Yes Plan: Has shown lot of sloughing and early gangrene which were debrided in the OR by Dr. Ingram. Now growing E. coli. Patient on IV antibiotics in the form of cefepime. (4) Morbid obesity with BMI of 40.0-44.9, adult Is this a current diagnosis for this admission?: Yes Plan: Status quo. (5) Abdominal pain Qualifiers: Abdominal location: right lower quadrant Qualified Code(s): R10.31 - Right lower quadrant pain Plan: Better on current pain pain management. (6) Abdominal wall mass of right lower quadrant Plan: Secondary to calciphylaxis. Open wound with sloughing and early gangrene which was debrided in the OR on current admission. (7) Anemia in chronic kidney disease (CKD) Qualifiers: Chronic kidney disease stage: unspecified stage Qualified Code(s): N18.9 - Chronic kidney disease, unspecified; D63.1 - Anemia in chronic kidney disease Plan: Adjust erythropoietin. (8) Diabetes mellitus type 2 in obese Is this a current diagnosis for this admission?: Yes Plan: Advised tight control. (9) Hypertension Qualifiers: Hypertension type: essential hypertension Qualified Code(s): I10 - Essential (primary) hypertension Is this a current diagnosis for this admission?: Yes Plan: Controlled. Some variation to pain issues.
[2018-09-19] MEDS: VANCOMYCIN HCL INJ 500 MG VIAL PO SCH (17:46)
[2018-09-19] MEDS: CINACALCET HCL 30 MG TABLET PO SCH (17:47)
[2018-09-19] MEDS ORDERED: NORMAL SALINE IV SCH (18:00)
[2018-09-19] MEDS ORDERED: SODIUM THIOSULFATE IV SCH (18:00)
--- NOTE | 2018-09-19 18:22 | PDOC PROGRESS REPORT ---
Subjective Progress Note for:: 09/19/18 Subjective:: JASPREET STAFFORD is a 52 year old female with a partial past medical history of renal replacement therapy for end-stage renal failure formally on hemodialysis currently on peritoneal dialysis. 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 Hospital service has assumed care. Patient was seen on morning rounds following dialysis. She is found resting in the recliner, comfortably, on supplemental oxygen by nasal cannula. She reports that her pain is currently well controlled . She denies fever, chills, chest pain, dyspnea, nausea and vomiting. She does complain of diarrhea today. She has no new questions or concerns at this time. No concerns per nursing. Reason For Visit: ABDOMINAL WALL INFECTION Physical Exam Vital Signs: Temp Pulse Resp BP Pulse Ox 97.7 F 79 18 148/57 H 97 09/19/18 15:17 09/19/18 15:17 09/19/18 15:17 09/19/18 15:17 09/19/18 15:17 Intake & Output 09/18/18 09/19/18 09/20/18 06:59 06:59 06:59 Intake Total 400 932 100 Output Total 3700 Balance -3300 932 100 Weight 140.6 kg 141.7 kg General appearance: PRESENT: no acute distress, morbidly obese, well-developed, well-nourished Head exam: PRESENT: atraumatic, normocephalic Eye exam: PRESENT: conjunctiva pink, EOMI, PERRLA. ABSENT: scleral icterus Ear exam: PRESENT: normal external ear exam Mouth exam: PRESENT: moist, tongue midline Neck exam: ABSENT: carotid bruit, JVD, lymphadenopathy, thyromegaly Respiratory exam: PRESENT: clear to auscultation shira, decreased breath sounds - bibasilar secondary to body habitus, symmetrical, unlabored. ABSENT: rales, rhonchi, wheezes Cardiovascular exam: PRESENT: RRR, +S1, +S2. ABSENT: diastolic murmur, rubs, systolic murmur Pulses: PRESENT: normal dorsalis pedis pul Vascular exam: PRESENT: normal capillary refill GI/Abdominal exam: PRESENT: normal bowel sounds, soft, tenderness - at surgical incision site. ABSENT: distended, guarding, mass, organolmegaly, rebound Rectal exam: PRESENT: deferred Extremities exam: PRESENT: full ROM. ABSENT: calf tenderness, clubbing, pedal edema Neurological exam: PRESENT: alert, awake, oriented to person, oriented to place, oriented to time, oriented to situation, CN II-XII grossly intact. ABSENT: motor sensory deficit Psychiatric exam: PRESENT: appropriate affect, normal mood. ABSENT: homicidal ideation, suicidal ideation Skin exam: PRESENT: dry, warm. ABSENT: cyanosis, intact - surgical incision not visulaized; wound vac in place, rash Results Laboratory Results: 09/19/18 04:57 09/19/18 04:57 09/19/18 09/19/18 04:57 04:57 WBC 15.7 H RBC 3.12 L Hgb 8.0 L Hct 24.1 L MCV 77 L MCH 25.8 L MCHC 33.4 RDW 18.3 H Plt Count 275 Seg Neutrophils % Not Reportable Lymphocytes % Not Reportable Monocytes % Not Reportable Eosinophils % Not Reportable Basophils % Not Reportable Absolute Neutrophils Not Reportable Absolute Lymphocytes Not Reportable Absolute Monocytes Not Reportable Absolute Eosinophils Not Reportable Absolute Basophils Not Reportable Sodium 136.0 L Potassium 4.0 Chloride 94 L Carbon Dioxide 20 L Anion Gap 22 H BUN 61 H Creatinine 14.75 H Est GFR ( Amer) 3 L Est GFR (Non-Af Amer) 3 L Glucose 137 H Calcium 8.9 09/16/18 21:30 Abdomen - Tissue (Surgical) Gram Stain - Final 09/16/18 21:30 Abdomen - Tissue (Surgical) Wound Culture - Final Escherichia Coli Corynebacterium Species Anaerococcus (Peptostrep) Sp. Prevotella Species 09/16/18 09/17/18 09/17/18 19:25 20:08 20:08 Creatine Kinase 24 L CK-MB (CK-2) 1.23 Troponin I 0.020 0.017 09/18/18 09/18/18 09/18/18 02:20 02:20 09:00 Creatine Kinase 21 L 26 L CK-MB (CK-2) 1.28 Troponin I 0.018 09/18/18 09:00 Creatine Kinase CK-MB (CK-2) 1.12 Troponin I 0.024 Impressions: Chest X-Ray 09/16/18 19:19 IMPRESSION: 1. No acute pulmonary findings. Assessment and Plan - Diagnosis (1) Calciphylaxis Is this a current diagnosis for this admission?: Yes Plan: Blood cultures are pending. Wound cultures demonstrate multiple organisms; gram-negative rods, Corynebacterium, E. coli, Prevotella species, Pepto strep. Primary management per the surgical team. Now status post surgical debridement; wound care per surgery's recommendations. Wound VAC in place. Dr. Casper has started the patient on IV cefepime following dialysis. (2) ESRD (end stage renal disease) on dialysis Is this a current diagnosis for this admission?: Yes Plan: Euvolemic, without acidosis or hyperkalemia Nephrology is consulted; and receiving hemodialysis per their expertise. Continue PhosLo, Sensipar, and Calcitrol. (3) Morbid obesity with BMI of 40.0-44.9, adult Is this a current diagnosis for this admission?: Yes Plan: Lifestyle modification and dietary discretion are advised. Registered dietitian is consulted. (4) CHF (congestive heart failure) Qualifiers: Heart failure type: unspecified Heart failure chronicity: acute Qualified Code(s): I50.9 - Heart failure, unspecified Is this a current diagnosis for this admission?: Yes Plan: Stable without exacerbation at this time. Diastolic, compensated, avoid uncontrolled hypertension, tachycardia or fluid status. BiPAP ordered; encouraged use. Continue carvedilol 25 mg every 12 hours. Continue home dose of hydralazine 100 mg 3 times daily for blood pressure management. (5) Cirrhosis Is this a current diagnosis for this admission?: Yes Plan: Stable Continue home medication regiment (6) Diabetes mellitus type 2 in obese Is this a current diagnosis for this admission?: Yes Plan: One third dosing home dose Lantus; monitor for need to increase not the patient is tolerating p.o. Accu-Cheks every 6 hours with sliding scale insulin. Hypoglycemia protocol in place. Registered dietitian is consulted. Dialysis diet. (7) Hypertension Qualifiers: Hypertension type: essential hypertension Qualified Code(s): I10 - Essential (primary) hypertension Is this a current diagnosis for this admission?: Yes Plan: Continue home dose Coreg and hydralazine IV hydralazine as needed for blood pressure control. (8) Altered mental status Is this a current diagnosis for this admission?: Yes Plan: Resolved; now at baseline. Likely multifactorial secondary to uremia, pain, narcotic medications, and hypercapnia. Dialysis per nephrology's expertise. Have discontinued IV morphine and transitioned to sliding scale oxycodone with adequate relief of pain and improved mentation. Encourage BiPAP use. (9) C. difficile diarrhea Is this a current diagnosis for this admission?: Yes Plan: Patient complains of multiple loose stools today. C. difficile PCR is positive. Stool cultures pending. Start vancomycin p.o. every 6 hours - Time Time Spent with patient: 25-34 minutes Medications reviewed and adjusted accordingly: Yes Anticipated discharge: Home with Homehealth Within: Other - Once cleared by surgery
[2018-09-19] MEDS: CALCITRIOL 0.25 MCG CAPSULE PO SCH (20:09)
[2018-09-19] MEDS: CEFEPIME HCL 1.5 GM in DEXTROSE 5%-WATER 50 ML IV SCH (21:27)
[2018-09-19] MEDS: INSULIN GLARGINE,HUM.REC.ANLOG 1,000 UNIT/10 ML VIAL SUBCUT SCH (23:15)
[2018-09-20] MEDS: VANCOMYCIN HCL INJ 500 MG VIAL PO SCH ×5 (00:57→23:16)
[2018-09-20] MEDS: OXYCODONE HCL IR 5 MG TABLET PO PRN ×3 (05:14→18:23)
[2018-09-20] MEDS: HYDRALAZINE HCL 50 MG TABLET PO SCH ×3 (05:15→21:25)
[2018-09-20 05:56] LABS: HEMATOCRIT 24.2 % (36.0-47.0); MEAN CORPUSCULAR HEMOGLOBIN 25.4 pg (27.0-33.4); MEAN CORPUSCULAR HGB CONC 32.8 g/dL (32.0-36.0); MEAN CORPUSCULAR VOLUME 77 fl (80-97); PLATELET COUNT 267 10^3/uL (150-450); RED BLOOD COUNT 3.12 10^6/uL (3.72-5.28); RED CELL DISTRIBUTION WIDTH 18.5 % (11.5-14.0); WHITE BLOOD COUNT 16.4 10^3/uL (4.0-10.5)
[2018-09-20 06:02] LABS: HEMOGLOBIN 7.9 g/dL (12.0-15.5)
[2018-09-20 06:13] LABS: BLOOD UREA NITROGEN 38 mg/dL (7-20); CALCIUM 8.7 mg/dL (8.4-10.2); CARBON DIOXIDE 22 mmol/L (22-30); CHLORIDE 96 mmol/L (98-107); GLUCOSE 179 mg/dL (75-110)
[2018-09-20 06:19] LABS: ANION GAP 19 (5-19)
[2018-09-20] MEDS: SEVELAMER HCL 800 MG TABLET PO SCH ×3 (08:31→17:53)
[2018-09-20] MEDS: INSULIN LISPRO 100 UNIT/ML 3 ML VIAL SUBCUT SCH ×4 (08:31→21:26)
[2018-09-20] MEDS: IPRATROPIUM/ALBUTEROL 0.5-2.5 MG/3 ML AMPUL NEB SCH ×2 (08:35→19:51)
[2018-09-20] MEDS: METOCLOPRAMIDE HCL 10 MG TABLET PO SCH ×3 (09:37→17:54)
[2018-09-20] MEDS: CALCITRIOL 0.25 MCG CAPSULE PO SCH (09:37)
[2018-09-20] MEDS: PREGABALIN 75 MG CAPSULE PO SCH ×2 (09:37→21:25)
[2018-09-20] MEDS: CARVEDILOL 12.5 MG TABLET PO SCH ×2 (09:37→21:26)
[2018-09-20] MEDS: ENOXAPARIN SODIUM INJ 30 MG/0.3 ML DISP.SYRIN SUBCUT SCH (09:39)
[2018-09-20] MEDS: FLUTICASONE/VILANTEROL 200-25 MCG/DOSE IH SCH (09:39)
[2018-09-20] MEDS: NYSTATIN TOPICAL POWDER 15 GM TP SCH ×3 (09:44→17:54)
--- NOTE | 2018-09-20 10:57 | PDOC PROGRESS REPORT ---
Subjective Progress Note for:: 09/20/18 Subjective:: Patient has no complaints, resting; VAC in place. Patient growing C. difficile in her stool; antibiotics switched to oral vancomycin Reason For Visit: ABDOMINAL WALL INFECTION Physical Exam Vital Signs: Temp Pulse Resp BP Pulse Ox 99.4 F 85 18 126/89 H 98 09/20/18 08:21 09/20/18 08:38 09/20/18 08:38 09/20/18 08:21 09/20/18 08:38 Intake & Output 09/19/18 09/20/18 09/21/18 06:59 06:59 06:59 Intake Total 932 100 300 Output Total 2800 Balance 932 -2700 300 Weight 141.7 kg 141.5 kg General appearance: PRESENT: no acute distress GI/Abdominal exam: PRESENT: other - VAC in place, good seal, no foul smell or drainage. Results Laboratory Results: 09/20/18 05:07 09/20/18 05:07 09/20/18 09/20/18 05:07 05:07 WBC 16.4 H RBC 3.12 L Hgb 7.9 L Hct 24.2 L MCV 77 L MCH 25.4 L MCHC 32.8 RDW 18.5 H Plt Count 267 Sodium 137.4 Potassium 4.0 Chloride 96 L Carbon Dioxide 22 Anion Gap 19 BUN 38 H Creatinine 10.10 H Est GFR ( Amer) 5 L Est GFR (Non-Af Amer) 4 L Glucose 179 H Calcium 8.7 09/16/18 21:30 Abdomen - Tissue (Surgical) Gram Stain - Final 09/16/18 21:30 Abdomen - Tissue (Surgical) Wound Culture - Final Escherichia Coli Corynebacterium Species Anaerococcus (Peptostrep) Sp. Prevotella Species 09/16/18 09/17/18 09/17/18 19:25 20:08 20:08 Creatine Kinase 24 L CK-MB (CK-2) 1.23 Troponin I 0.020 0.017 09/18/18 09/18/18 09/18/18 02:20 02:20 09:00 Creatine Kinase 21 L 26 L CK-MB (CK-2) 1.28 Troponin I 0.018 09/18/18 09:00 Creatine Kinase CK-MB (CK-2) 1.12 Troponin I 0.024 Impressions: Chest X-Ray 09/16/18 19:19 IMPRESSION: 1. No acute pulmonary findings. Assessment & Plan - Diagnosis (1) Abdominal wall abscess Is this a current diagnosis for this admission?: Yes Plan: Impression: Patient is 5 days status post abdominal wall re-debridement, doing well, switched over to oral vancomycin; wound VAC in position. Recommendations: 1. Patient officially transferred to [place] service. 2. We will plan VAC change tomorrow 3. Above plan with hospitalist this morning. (2) C. difficile diarrhea Is this a current diagnosis for this admission?: Yes (3) Calciphylaxis Is this a current diagnosis for this admission?: Yes (4) ESRD (end stage renal disease) on dialysis Is this a current diagnosis for this admission?: Yes
--- NOTE | 2018-09-20 13:57 | PDOC PROGRESS REPORT ---
Subjective Progress Note for:: 09/20/18 Subjective:: JASPREET STAFFORD is a 52 year old female with a partial past medical history of renal replacement therapy for end-stage renal failure formally on hemodialysis currently on peritoneal dialysis. 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 Hospital service has assumed care. Patient was seen on morning rounds. She is found resting in the bed, comfort ably, on room air. She reports that her pain is currently well controlled . She denies fever, chills, chest pain, dyspnea, nausea and vomiting. Diarrhea has resolved. She has no new questions or concerns at this time. No concerns per nursing. Reason For Visit: ABDOMINAL WALL INFECTION Physical Exam Vital Signs: Temp Pulse Resp BP Pulse Ox 98.4 F 83 18 119/50 L 96 09/20/18 12:23 09/20/18 12:23 09/20/18 12:23 09/20/18 12:23 09/20/18 12:23 Intake & Output 09/19/18 09/20/18 09/21/18 06:59 06:59 06:59 Intake Total 932 100 300 Output Total 2800 Balance 932 -2700 300 Weight 141.7 kg 141.5 kg General appearance: PRESENT: no acute distress, morbidly obese, well-developed, well-nourished Head exam: PRESENT: atraumatic, normocephalic Eye exam: PRESENT: conjunctiva pink, EOMI, PERRLA. ABSENT: scleral icterus Ear exam: PRESENT: normal external ear exam Mouth exam: PRESENT: moist, tongue midline Teeth exam: PRESENT: poor dentation Neck exam: ABSENT: carotid bruit, JVD, lymphadenopathy, thyromegaly Respiratory exam: PRESENT: clear to auscultation shira, decreased breath sounds - bibasilar; secondary to body habitus. ABSENT: rales, rhonchi, wheezes Cardiovascular exam: PRESENT: RRR. ABSENT: diastolic murmur, rubs, systolic murmur Pulses: PRESENT: normal dorsalis pedis pul Vascular exam: PRESENT: normal capillary refill GI/Abdominal exam: PRESENT: normal bowel sounds, soft, tenderness - surgical site. ABSENT: distended, guarding, mass, organolmegaly, rebound Rectal exam: PRESENT: deferred Extremities exam: PRESENT: full ROM. ABSENT: calf tenderness, clubbing, pedal edema Musculoskeletal exam: PRESENT: ambulatory Neurological exam: PRESENT: alert, awake, oriented to person, oriented to place, oriented to time, oriented to situation, CN II-XII grossly intact. ABSENT: motor sensory deficit Psychiatric exam: PRESENT: appropriate affect, normal mood. ABSENT: homicidal ideation, suicidal ideation Skin exam: PRESENT: dry, warm, other - wound vac to abdomen. ABSENT: cyanosis, rash Results Laboratory Results: 09/20/18 05:07 09/20/18 05:07 09/20/18 09/20/18 05:07 05:07 WBC 16.4 H RBC 3.12 L Hgb 7.9 L Hct 24.2 L MCV 77 L MCH 25.4 L MCHC 32.8 RDW 18.5 H Plt Count 267 Sodium 137.4 Potassium 4.0 Chloride 96 L Carbon Dioxide 22 Anion Gap 19 BUN 38 H Creatinine 10.10 H Est GFR ( Amer) 5 L Est GFR (Non-Af Amer) 4 L Glucose 179 H Calcium 8.7 09/16/18 21:30 Abdomen - Tissue (Surgical) Gram Stain - Final 09/16/18 21:30 Abdomen - Tissue (Surgical) Wound Culture - Final Escherichia Coli Corynebacterium Species Anaerococcus (Peptostrep) Sp. Prevotella Species 09/16/18 09/17/18 09/17/18 19:25 20:08 20:08 Creatine Kinase 24 L CK-MB (CK-2) 1.23 Troponin I 0.020 0.017 09/18/18 09/18/18 09/18/18 02:20 02:20 09:00 Creatine Kinase 21 L 26 L CK-MB (CK-2) 1.28 Troponin I 0.018 09/18/18 09:00 Creatine Kinase CK-MB (CK-2) 1.12 Troponin I 0.024 Impressions: Chest X-Ray 09/16/18 19:19 IMPRESSION: 1. No acute pulmonary findings. Assessment and Plan - Diagnosis (1) Calciphylaxis Is this a current diagnosis for this admission?: Yes Plan: Blood cultures are negative at 72 hrs Wound cultures demonstrate multiple organisms; Corynebacterium, E. coli, Prevotella species, Pepto strep. Primary management per the surgical team. Now status post surgical debridement; wound care per surgery's recommendations. Wound VAC in place. Dr. Casper has started the patient on IV cefepime following dialysis. (2) ESRD (end stage renal disease) on dialysis Is this a current diagnosis for this admission?: Yes Plan: Euvolemic, without acidosis or hyperkalemia Nephrology is consulted; and receiving hemodialysis per their expertise. Continue PhosLo, Sensipar, and Calcitrol. (3) Morbid obesity with BMI of 40.0-44.9, adult Is this a current diagnosis for this admission?: Yes Plan: Lifestyle modification and dietary discretion are advised. Registered dietitian is consulted. (4) CHF (congestive heart failure) Qualifiers: Heart failure type: unspecified Heart failure chronicity: acute Qualified Code(s): I50.9 - Heart failure, unspecified Is this a current diagnosis for this admission?: Yes Plan: Stable without exacerbation at this time. Diastolic, compensated, avoid uncontrolled hypertension, tachycardia or fluid status. BiPAP ordered; encouraged use. Continue carvedilol 25 mg every 12 hours. Continue home dose of hydralazine 100 mg 3 times daily for blood pressure management. (5) Cirrhosis Is this a current diagnosis for this admission?: Yes Plan: Stable Continue home medication regiment (6) Diabetes mellitus type 2 in obese Is this a current diagnosis for this admission?: Yes Plan: One third dosing home dose Lantus; monitor for need to increase not the patient is tolerating p.o. Accu-Cheks every 6 hours with sliding scale insulin. Hypoglycemia protocol in place. Registered dietitian is consulted. Dialysis diet. (7) Hypertension Qualifiers: Hypertension type: essential hypertension Qualified Code(s): I10 - Essential (primary) hypertension Is this a current diagnosis for this admission?: Yes Plan: Continue home dose Coreg and hydralazine IV hydralazine as needed for blood pressure control. (8) Altered mental status Is this a current diagnosis for this admission?: Yes Plan: Resolved; now at baseline. Likely multifactorial secondary to uremia, pain, narcotic medications, and hypercapnia. Dialysis per nephrology's expertise. Have discontinued IV morphine and transitioned to sliding scale oxycodone with adequate relief of pain and improved mentation. Encourage BiPAP use. (9) C. difficile diarrhea Is this a current diagnosis for this admission?: Yes Plan: Reports loose stools have resolved. C. difficile PCR is positive. Stool cultures pending. Start vancomycin p.o. every 6 hours; Day #2/10 - Time Time Spent with patient: 25-34 minutes Medications reviewed and adjusted accordingly: Yes Anticipated discharge: Home Within: Other - Once cleared by Surgery
[2018-09-20] MEDS: CINACALCET HCL 30 MG TABLET PO SCH (17:54)
[2018-09-20] MEDS: INSULIN GLARGINE,HUM.REC.ANLOG 1,000 UNIT/10 ML VIAL SUBCUT SCH (21:26)
[2018-09-21] MEDS: OXYCODONE HCL IR 5 MG TABLET PO PRN ×5 (00:11→21:53)
[2018-09-21] MEDS: VANCOMYCIN HCL INJ 500 MG VIAL PO SCH ×4 (05:37→23:17)
[2018-09-21] MEDS: HYDRALAZINE HCL 50 MG TABLET PO SCH ×3 (05:37→21:53)
[2018-09-21 05:44] LABS: HEMATOCRIT 23.6 % (36.0-47.0); MEAN CORPUSCULAR HEMOGLOBIN 25.5 pg (27.0-33.4); MEAN CORPUSCULAR HGB CONC 32.6 g/dL (32.0-36.0); MEAN CORPUSCULAR VOLUME 78 fl (80-97); PLATELET COUNT 240 10^3/uL (150-450); RED BLOOD COUNT 3.01 10^6/uL (3.72-5.28); RED CELL DISTRIBUTION WIDTH 18.6 % (11.5-14.0); WHITE BLOOD COUNT 15.9 10^3/uL (4.0-10.5)
[2018-09-21 06:00] LABS: HEMOGLOBIN 7.7 g/dL (12.0-15.5)
[2018-09-21] MEDS: INSULIN LISPRO 100 UNIT/ML 3 ML VIAL SUBCUT SCH ×4 (07:42→21:54)
[2018-09-21] MEDS: SEVELAMER HCL 800 MG TABLET PO SCH ×3 (07:45→16:59)
[2018-09-21] MEDS: IPRATROPIUM/ALBUTEROL 0.5-2.5 MG/3 ML AMPUL NEB SCH ×2 (08:36→19:46)
[2018-09-21] MEDS: PREGABALIN 75 MG CAPSULE PO SCH ×2 (09:36→21:53)
[2018-09-21] MEDS: ENOXAPARIN SODIUM INJ 30 MG/0.3 ML DISP.SYRIN SUBCUT SCH (09:36)
[2018-09-21] MEDS: CARVEDILOL 12.5 MG TABLET PO SCH ×2 (09:36→21:53)
[2018-09-21] MEDS: METOCLOPRAMIDE HCL 10 MG TABLET PO SCH ×3 (09:36→17:00)
[2018-09-21] MEDS: CALCITRIOL 0.25 MCG CAPSULE PO SCH (09:36)
[2018-09-21] MEDS: FLUTICASONE/VILANTEROL 200-25 MCG/DOSE IH SCH (09:37)
[2018-09-21] MEDS: NYSTATIN TOPICAL POWDER 15 GM TP SCH ×3 (09:37→17:01)
--- NOTE | 2018-09-21 12:28 | PDOC PROGRESS REPORT ---
Subjective Progress Note for:: 09/21/18 Subjective:: No specific, new complaints. Reason For Visit: ABDOMINAL WALL INFECTION Physical Exam Vital Signs: Temp Pulse Resp BP Pulse Ox 98.3 F 73 20 134/83 H 96 09/21/18 12:00 09/21/18 12:00 09/21/18 12:00 09/21/18 12:00 09/21/18 12:00 Intake & Output 09/20/18 09/21/18 09/22/18 06:59 06:59 06:59 Intake Total 100 655 Output Total 2800 0 Balance -2700 655 Weight 141.5 kg 149.8 kg General appearance: PRESENT: no acute distress GI/Abdominal exam: PRESENT: other - VAC removed; this is a large wound with exposed subcutaneous tissue, with undulations. Approximately 1/3-1/2 of the exposed surfaces granulating, and the other half is desiccating fat. There is no foul smell or active drainage. The surrounding skin is somewhat thickened but not infected. Results Laboratory Results: 09/21/18 05:03 09/20/18 05:07 09/21/18 05:03 WBC 15.9 H RBC 3.01 L Hgb 7.7 L Hct 23.6 L MCV 78 L MCH 25.5 L MCHC 32.6 RDW 18.6 H Plt Count 240 09/19/18 13:22 Stool - Stool - Final 09/16/18 09/17/18 09/17/18 19:25 20:08 20:08 Creatine Kinase 24 L CK-MB (CK-2) 1.23 Troponin I 0.020 0.017 09/18/18 09/18/18 09/18/18 02:20 02:20 09:00 Creatine Kinase 21 L 26 L CK-MB (CK-2) 1.28 Troponin I 0.018 09/18/18 09:00 Creatine Kinase CK-MB (CK-2) 1.12 Troponin I 0.024 Impressions: Chest X-Ray 09/16/18 19:19 IMPRESSION: 1. No acute pulmonary findings. Assessment & Plan - Diagnosis (1) Abdominal wall abscess Is this a current diagnosis for this admission?: Yes Plan: Impression: Open wound, semi-acute, coming under control with no evidence of ongoing sepsis; poor granulation tissue likely due to multiple systemic. Wound will require aggressive outpatient management with advanced wound center visits etc. Recommendations: 1. Continue VAC therapy 2. Continue intravenous antibiotic therapy for multiple organisms growing in the wound 3. Set patient up for outpatient wound VAC therapy, and likely several more days of IV antibiotic therapy. Patient has a long history of noncompliance. Managing this wound on an outpatient basis will be challenging but not impossible. (2) C. difficile diarrhea Is this a current diagnosis for this admission?: Yes (3) Calciphylaxis Is this a current diagnosis for this admission?: Yes (4) ESRD (end stage renal disease) on dialysis Is this a current diagnosis for this admission?: Yes
--- NOTE | 2018-09-21 15:22 | PDOC PROGRESS REPORT ---
Subjective Progress Note for:: 09/21/18 Subjective:: JASPREET STAFFORD is a 52 year old female with a partial past medical history of renal replacement therapy for end-stage renal failure formally on hemodialysis currently on peritoneal dialysis. 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 Hospital service has assumed care. Patient was seen on morning rounds with mother present while surgery was at [facility] for wound vac change. She is found resting in the bed, comfortably, on room air. She reports that her pain is currently well controlled. She reports fatigue, but otherwise has no new questions or concerns. She denies fever, chills, chest pain, dyspnea, nausea and vomiting. Diarrhea has resolved. No concerns per nursing. Reason For Visit: ABDOMINAL WALL INFECTION Physical Exam Vital Signs: Temp Pulse Resp BP Pulse Ox 98.3 F 75 20 134/83 H 96 09/21/18 12:00 09/21/18 14:00 09/21/18 12:00 09/21/18 12:00 09/21/18 12:00 Intake & Output 09/20/18 09/21/18 09/22/18 06:59 06:59 06:59 Intake Total 100 655 Output Total 2800 0 Balance -2700 655 Weight 141.5 kg 149.8 kg General appearance: PRESENT: no acute distress, morbidly obese, well-developed, well-nourished Head exam: PRESENT: atraumatic, normocephalic Eye exam: PRESENT: conjunctiva pink, EOMI, PERRLA. ABSENT: scleral icterus Ear exam: PRESENT: normal external ear exam Mouth exam: PRESENT: moist, tongue midline Neck exam: ABSENT: carotid bruit, JVD, lymphadenopathy, thyromegaly Respiratory exam: PRESENT: clear to auscultation shira, decreased breath sounds - bibasilar r/t body habitus, symmetrical, unlabored. ABSENT: rales, rhonchi, wheezes Cardiovascular exam: PRESENT: RRR. ABSENT: diastolic murmur, rubs, systolic murmur Pulses: PRESENT: normal dorsalis pedis pul Vascular exam: PRESENT: normal capillary refill GI/Abdominal exam: PRESENT: normal bowel sounds, soft, tenderness - RLQ ABD wall discomfort. ABSENT: distended, guarding, mass, organolmegaly, rebound Rectal exam: PRESENT: deferred Extremities exam: PRESENT: full ROM. ABSENT: calf tenderness, clubbing, pedal edema Musculoskeletal exam: PRESENT: ambulatory Neurological exam: PRESENT: alert, awake, oriented to person, oriented to place, oriented to time, oriented to situation, CN II-XII grossly intact. ABSENT: motor sensory deficit Psychiatric exam: PRESENT: appropriate affect, normal mood. ABSENT: homicidal ideation, suicidal ideation Skin exam: PRESENT: dry, warm. ABSENT: cyanosis, intact - RLQ abd wall wound s/p surgical debridement., rash Results Laboratory Results: 09/21/18 05:03 09/20/18 05:07 09/21/18 05:03 WBC 15.9 H RBC 3.01 L Hgb 7.7 L Hct 23.6 L MCV 78 L MCH 25.5 L MCHC 32.6 RDW 18.6 H Plt Count 240 09/19/18 13:22 Stool - Stool - Final 09/19/18 13:22 Stool - Stool Stool Culture - Final NO SALMONELLA, SHIGELLA, CAMPYLOBACTER, OR E.COLI 0157 RECOVERED. NEGATIVE FOR SHIGA TOXINS 1&2. 09/16/18 09/17/18 09/17/18 19:25 20:08 20:08 Creatine Kinase 24 L CK-MB (CK-2) 1.23 Troponin I 0.020 0.017 09/18/18 09/18/18 09/18/18 02:20 02:20 09:00 Creatine Kinase 21 L 26 L CK-MB (CK-2) 1.28 Troponin I 0.018 09/18/18 09:00 Creatine Kinase CK-MB (CK-2) 1.12 Troponin I 0.024 Impressions: Chest X-Ray 09/16/18 19:19 IMPRESSION: 1. No acute pulmonary findings. Assessment and Plan - Diagnosis (1) Calciphylaxis Is this a current diagnosis for this admission?: Yes Plan: Blood cultures are negative at 72 hrs Wound cultures demonstrate multiple organisms; Corynebacterium, E. coli, Prevotella species, Pepto strep. Primary management per the surgical team. Now status post surgical debridement; wound care per surgery's recommendations. Wound VAC in place. Dr. Casper has started the patient on IV cefepime following dialysis. (2) ESRD (end stage renal disease) on dialysis Is this a current diagnosis for this admission?: Yes Plan: Euvolemic, without acidosis or hyperkalemia Nephrology is consulted; and receiving hemodialysis per their expertise. Continue PhosLo, Sensipar, and Calcitrol. (3) Morbid obesity with BMI of 40.0-44.9, adult Is this a current diagnosis for this admission?: Yes Plan: Lifestyle modification and dietary discretion are advised. Registered dietitian is consulted. (4) CHF (congestive heart failure) Qualifiers: Heart failure type: unspecified Heart failure chronicity: acute Qualified Code(s): I50.9 - Heart failure, unspecified Is this a current diagnosis for this admission?: Yes Plan: Stable without exacerbation at this time. Diastolic, compensated, avoid uncontrolled hypertension, tachycardia or fluid status. BiPAP ordered; encouraged use. Continue carvedilol 25 mg every 12 hours. Continue home dose of hydralazine 100 mg 3 times daily for blood pressure management. (5) Cirrhosis Is this a current diagnosis for this admission?: Yes Plan: Stable Continue home medication regiment (6) Diabetes mellitus type 2 in obese Is this a current diagnosis for this admission?: Yes Plan: One third dosing home dose Lantus; monitor for need to increase not the patient is tolerating p.o. Accu-Cheks every 6 hours with sliding scale insulin. Hypoglycemia protocol in place. Registered dietitian is consulted. Dialysis diet. (7) Hypertension Qualifiers: Hypertension type: essential hypertension Qualified Code(s): I10 - Essential (primary) hypertension Is this a current diagnosis for this admission?: Yes Plan: Continue home dose Coreg and hydralazine IV hydralazine as needed for blood pressure control. (8) Altered mental status Is this a current diagnosis for this admission?: Yes Plan: Resolved; now at baseline. Likely multifactorial secondary to uremia, pain, narcotic medications, and hypercapnia. Dialysis per nephrology's expertise. Have discontinued IV morphine and transitioned to sliding scale oxycodone with adequate relief of pain and improved mentation. Encourage BiPAP use. (9) C. difficile diarrhea Is this a current diagnosis for this admission?: Yes Plan: Reports loose stools have resolved. C. difficile PCR is positive. Stool cultures pending. Start vancomycin p.o. every 6 hours; Day #04/27 - Time Time Spent with patient: 15-24 minutes Medications reviewed and adjusted accordingly: Yes Anticipated discharge: Home with Homehealth Within: within 72 hours - Once cleared by surgery
[2018-09-21] MEDS: CINACALCET HCL 30 MG TABLET PO SCH (17:00)
[2018-09-21] MEDS: INSULIN GLARGINE,HUM.REC.ANLOG 1,000 UNIT/10 ML VIAL SUBCUT SCH (21:54)
[2018-09-22] MEDS: ONDANSETRON 4 MG TAB.RAPDIS PO PRN ×2 (02:05→19:07)
[2018-09-22] MEDS ORDERED: EPOETIN ALFA INJ 20000 UNIT/1 ML VIAL (RENAL) IV PRN (05:00)
[2018-09-22] MEDS: HYDRALAZINE HCL 50 MG TABLET PO SCH ×3 (05:36→21:43)
[2018-09-22] MEDS: VANCOMYCIN HCL INJ 500 MG VIAL PO SCH ×4 (05:37→23:40)
[2018-09-22 06:23] LABS: HEMATOCRIT 23.6 % (36.0-47.0); MEAN CORPUSCULAR HEMOGLOBIN 25.4 pg (27.0-33.4); MEAN CORPUSCULAR HGB CONC 32.5 g/dL (32.0-36.0); MEAN CORPUSCULAR VOLUME 78 fl (80-97); PLATELET COUNT 227 10^3/uL (150-450); RED BLOOD COUNT 3.01 10^6/uL (3.72-5.28); RED CELL DISTRIBUTION WIDTH 18.6 % (11.5-14.0); WHITE BLOOD COUNT 16.4 10^3/uL (4.0-10.5)
[2018-09-22 06:24] LABS: HEMOGLOBIN 7.7 g/dL (12.0-15.5)
[2018-09-22 06:41] LABS: ANION GAP 19 (5-19); BLOOD UREA NITROGEN 49 mg/dL (7-20); CALCIUM 9.2 mg/dL (8.4-10.2); CARBON DIOXIDE 22 mmol/L (22-30); CHLORIDE 95 mmol/L (98-107); GLUCOSE 112 mg/dL (75-110); POTASSIUM 4.2 mmol/L (3.6-5.0)
[2018-09-22] MEDS ORDERED: EPOETIN ALFA-EPBX 20,000 UNITS (ESRD) in SYRINGE IV PRN (08:12)
[2018-09-22] MEDS: INSULIN LISPRO 100 UNIT/ML 3 ML VIAL SUBCUT SCH ×4 (08:18→21:37)
[2018-09-22] MEDS: SEVELAMER HCL 800 MG TABLET PO SCH ×3 (08:19→17:19)
[2018-09-22] MEDS: IPRATROPIUM/ALBUTEROL 0.5-2.5 MG/3 ML AMPUL NEB SCH ×2 (09:15→20:26)
--- NOTE | 2018-09-22 09:21 | PDOC PROGRESS REPORT ---
Subjective Progress Note for:: 09/22/18 Reason For Visit: ABDOMINAL WALL INFECTION comfortable Physical Exam Vital Signs: Temp Pulse Resp BP Pulse Ox 98.3 F 82 20 170/87 H 98 09/22/18 03:11 09/22/18 07:00 09/22/18 03:24 09/22/18 03:11 09/22/18 03:24 Intake & Output 09/21/18 09/22/18 09/23/18 06:59 06:59 06:59 Intake Total 655 662 Output Total 0 0 Balance 655 662 Weight 149.8 kg 148.9 kg General appearance: PRESENT: no acute distress Head exam: PRESENT: normocephalic Eye exam: PRESENT: EOMI Mouth exam: PRESENT: moist Teeth exam: PRESENT: poor dentation Neck exam: PRESENT: full ROM Respiratory exam: PRESENT: clear to auscultation shira Cardiovascular exam: PRESENT: RRR GI/Abdominal exam: PRESENT: other - wound vac in place, no cellulitis Rectal exam: PRESENT: deferred Extremities exam: PRESENT: full ROM Musculoskeletal exam: PRESENT: full ROM Neurological exam: PRESENT: alert, awake Psychiatric exam: PRESENT: appropriate affect Skin exam: PRESENT: dry Results Laboratory Results: 09/22/18 05:34 09/22/18 05:34 09/22/18 09/22/18 05:34 05:34 WBC 16.4 H RBC 3.01 L Hgb 7.7 L Hct 23.6 L MCV 78 L MCH 25.4 L MCHC 32.5 RDW 18.6 H Plt Count 227 Sodium 136.4 L Potassium 4.2 Chloride 95 L Carbon Dioxide 22 Anion Gap 19 BUN 49 H Creatinine 13.06 H Est GFR ( Amer) 4 L Est GFR (Non-Af Amer) 3 L Glucose 112 H Calcium 9.2 09/16/18 23:55 Blood Blood Culture - Final NO GROWTH IN 5 DAYS 09/16/18 19:25 Blood Blood Culture - Final NO GROWTH IN 5 DAYS 09/19/18 13:22 Stool - Stool - Final 09/19/18 13:22 Stool - Stool Stool Culture - Final NO SALMONELLA, SHIGELLA, CAMPYLOBACTER, OR E.COLI 0157 RECOVERED. NEGATIVE FOR SHIGA TOXINS 1&2. 09/16/18 09/17/18 09/17/18 19:25 20:08 20:08 Creatine Kinase 24 L CK-MB (CK-2) 1.23 Troponin I 0.020 0.017 09/18/18 09/18/18 09/18/18 02:20 02:20 09:00 Creatine Kinase 21 L 26 L CK-MB (CK-2) 1.28 Troponin I 0.018 09/18/18 09:00 Creatine Kinase CK-MB (CK-2) 1.12 Troponin I 0.024 Impressions: Chest X-Ray 09/16/18 19:19 IMPRESSION: 1. No acute pulmonary findings. Assessment & Plan - Diagnosis (1) Calciphylaxis Is this a current diagnosis for this admission?: Yes - Plan Summary Plan Summary: cont wound vac for now change wed.
[2018-09-22] MEDS ORDERED: EPOETIN ALFA EPBX IV PRN (09:22)
[2018-09-22] MEDS ORDERED: DISPOSABLE IV PRN (09:22)
[2018-09-22] MEDS ORDERED: BUPIVACAINE HCL 0.25 % INJ/PF (2.5 MG/1 ML) 30 ML VIAL ONE (09:55)
[2018-09-22] MEDS ORDERED: LIDOCAINE 0.5% INJ-PF (5 MG/ML) 50 ML SDV ONE (09:55)
--- NOTE | 2018-09-22 09:59 | PDOC PROGRESS REPORT ---
Subjective Progress Note for:: 09/22/18 Subjective:: Patient is a 52-year-old -[place] female with ESRD previously on peritoneal dialysis no switch to hemodialysis due to abdominal calciphylaxis, also with diabetes, hypertension, and obesity admitted last week because of worsening abdominal ulcer requiring debridement. Currently she is being treated for calciphylaxis with sodium thiosulfate started on September 11 while she was still on peritoneal dialysis. She also had E. coli on wound culture so she is being given IV cefepime and was found to have C. difficile last week so she has been given vancomycin orally by the hospitalist service. I am seeing her on dialysis this morning. She seems to be comfortable but she said her right lower quadrant abdominal pain he still rates about 5/5 but she does not appear to be in pain currently. She has been having some nausea since last night. She is currently n.p.o. for planned removal of her PD catheter today by Dr. Soriano. Her diarrhea has stopped. Patient states she still feels sick. Surgery is following her abdominal wound which is currently on wou nd VAC. Currently she is tolerating dialysis well without any problems through her PermCath. Her blood pressure is slightly elevated. There is some mild jerking movements that is being observed currently by our dialysis nurse. For the past week we're able to bring down her weight from admission of 154.22 to current of 148.9. Her creatinine is also improved since her dialyzing her consistently here in the hospital. Discussed with her dialysis nurses the importance of giving sodium thiosulfate at the end of her dialysis treatment while here in the hospital. Reason For Visit: ABDOMINAL WALL INFECTION Physical Exam Vital Signs: Temp Pulse Resp BP Pulse Ox 98.3 F 82 20 170/87 H 98 09/22/18 03:11 09/22/18 07:00 09/22/18 03:24 09/22/18 03:11 09/22/18 03:24 Intake & Output 09/21/18 09/22/18 09/23/18 06:59 06:59 06:59 Intake Total 655 662 Output Total 0 0 Balance 655 662 Weight 149.8 kg 148.9 kg Vitals during dialysis: Blood pressure 174/94, heart rate of 73, blood flow rate of 350 mg minute, dialysate flow rate of 800 and more per minute. Exam: General appearance: PRESENT: no acute distress, cooperative, well-developed, well-nourished Head exam: PRESENT: atraumatic, normocephalic Eye exam: PRESENT: conjunctiva pale, PERRLA. ABSENT: scleral icterus Neck exam: ABSENT: JVD Respiratory exam: PRESENT: Normal breath sounds. ABSENT: crackles, rales, rhonchi, unlabored, wheezes Cardiovascular exam: PRESENT: Regular rate rhythm -+S1, +S2. ABSENT: diastolic murmur, systolic murmur GI/Abdominal exam: PRESENT: normal bowel sounds, soft. Wound VAC over her abdominal wound in the right lower quadrant area. ABSENT: guarding, mass, tenderness Extremities exam: ABSENT: No edema Neurological exam: PRESENT: alert, awake, oriented to person, place and time. Skin exam: PRESENT: dry, warm, Cardiovascular exam: PRESENT: +S1, +S2 GI/Abdominal exam: PRESENT: normal bowel sounds, soft. ABSENT: organomegaly, tenderness Results Laboratory Results: 09/22/18 05:34 09/22/18 05:34 09/22/18 09/22/18 05:34 05:34 WBC 16.4 H RBC 3.01 L Hgb 7.7 L Hct 23.6 L MCV 78 L MCH 25.4 L MCHC 32.5 RDW 18.6 H Plt Count 227 Sodium 136.4 L Potassium 4.2 Chloride 95 L Carbon Dioxide 22 Anion Gap 19 BUN 49 H Creatinine 13.06 H Est GFR ( Amer) 4 L Est GFR (Non-Af Amer) 3 L Glucose 112 H Calcium 9.2 09/16/18 23:55 Blood Blood Culture - Final NO GROWTH IN 5 DAYS 09/16/18 19:25 Blood Blood Culture - Final NO GROWTH IN 5 DAYS 09/19/18 13:22 Stool - Stool - Final 09/19/18 13:22 Stool - Stool Stool Culture - Final NO SALMONELLA, SHIGELLA, CAMPYLOBACTER, OR E.COLI 0157 RECOVERED. NEGATIVE FOR SHIGA TOXINS 1&2. 09/16/18 09/17/18 09/17/18 19:25 20:08 20:08 Creatine Kinase 24 L CK-MB (CK-2) 1.23 Troponin I 0.020 0.017 09/18/18 09/18/18 09/18/18 02:20 02:20 09:00 Creatine Kinase 21 L 26 L CK-MB (CK-2) 1.28 Troponin I 0.018 09/18/18 09:00 Creatine Kinase CK-MB (CK-2) 1.12 Troponin I 0.024 Impressions: Chest X-Ray 09/16/18 19:19 IMPRESSION: 1. No acute pulmonary findings. Assessment & Plan - Diagnosis (1) Calciphylaxis Is this a current diagnosis for this admission?: Yes Plan: Present on her right lower quadrant abdominal wall. Patient is currently now on sodium thiosulfate being given at 25 g 3 times a week post hemodialysis treatment started on September 11, 2018. This needs to be given for at least 3 months. (2) ESRD (end stage renal disease) on dialysis Is this a current diagnosis for this admission?: Yes Plan: We will do dialysis today for 3 hours, using the patient's right IJ CVC, with 2 potassium bath, blood flow rate of 350 mL per minute, dialysate flow rate of 800 mL per minute, ultrafiltration 2 to 3 L as tolerated, no heparin and Procrit with 40,000 units during dialysis intravenously. Patient will be monitored throughout dialysis treatment. (3) Infected abdominal wound Is this a current diagnosis for this admission?: Yes Plan: Status post debridement by surgery on September 16. Wound culture is positive for E. coli. Still with significant leukocytosis. Currently with wound VAC and being followed by surgery. (4) Abdominal wall abscess Is this a current diagnosis for this admission?: Yes (5) C. difficile diarrhea Is this a current diagnosis for this admission?: Yes Plan: Diarrhea has stopped. Patient being treated with oral vancomycin per hospitalist service. (6) Morbid obesity with BMI of 40.0-44.9, adult Is this a current diagnosis for this admission?: Yes (7) Abdominal pain Qualifiers: Abdominal location: right lower quadrant Qualified Code(s): R10.31 - Right lower quadrant pain Is this a current diagnosis for this admission?: Yes Plan: Patient currently on pain medication. Patient is also followed by pain specialist as an outpatient. (8) Abdominal wall mass of right lower quadrant Is this a current diagnosis for this admission?: Yes Plan: This is due to calciphylaxis which has progressed to an abscess. (9) Anemia in chronic kidney disease (CKD) Qualifiers: Chronic kidney disease stage: unspecified stage Qualified Code(s): N18.9 - Chronic kidney disease, unspecified; D63.1 - Anemia in chronic kidney disease Is this a current diagnosis for this admission?: Yes Plan: We will continue to give Epogen during dialysis treatment, will adjust dose as necessary. Will check stool for occult blood. (10) Hypertension Qualifiers: Hypertension type: essential hypertension Qualified Code(s): I10 - Essential (primary) hypertension Is this a current diagnosis for this admission?: Yes Plan: This is labile and affected by dialysis treatment and her pain.. Continue current blood pressure medications. (11) Type 2 diabetes mellitus Is this a current diagnosis for this admission?: Yes (12) Jerky body movements Is this a current diagnosis for this admission?: Yes Plan: Possibly due to Reglan. Will discontinue Reglan. (13) Hyperphosphatemia Is this a current diagnosis for this admission?: Yes Plan: On sevelamer. (14) Secondary hyperparathyroidism (of renal origin) Is this a current diagnosis for this admission?: Yes Plan: On calcitriol. We will switch this to IV Hectorol once she is back on outpatient dialysis unit in [facility]. - Notes Notes: Discussed plan with NIVIA Brock. From nephrology standpoint once the peritoneal dialysis catheter is removed, white count has normalized, and surgery has cleared the patient then we can discharge the patient at that point. - Time Time with patient: Greater than 35 minutes
[2018-09-22] MEDS ORDERED: NORMAL SALINE IV SCH (10:00)
[2018-09-22] MEDS ORDERED: FLUCONAZOLE 100 MG TABLET PO SCH (10:00)
[2018-09-22] MEDS ORDERED: SODIUM THIOSULFATE IV SCH (10:00)
[2018-09-22] MEDS: NORMAL SALINE IV SCH (10:15)
[2018-09-22] MEDS: SODIUM THIOSULFATE IV SCH (10:15)
[2018-09-22] MEDS: CARVEDILOL 12.5 MG TABLET PO SCH ×2 (11:06→21:43)
[2018-09-22] MEDS: CALCITRIOL 0.25 MCG CAPSULE PO SCH (11:06)
[2018-09-22] MEDS ORDERED: PROPOFOL INJ 200 MG/20 ML VIAL IV ONE (11:38)
[2018-09-22] MEDS ORDERED: FENTANYL CITRATE INJ/PF 100 MCG/2 ML AMPUL ONE (11:38)
[2018-09-22] MEDS ORDERED: MIDAZOLAM 2 MG/2 ML INJ ONE (11:38)
[2018-09-22] MEDS: ENOXAPARIN SODIUM INJ 30 MG/0.3 ML DISP.SYRIN SUBCUT SCH (12:25)
[2018-09-22] MEDS: PREGABALIN 75 MG CAPSULE PO SCH ×2 (12:26→21:45)
[2018-09-22] MEDS: FLUTICASONE/VILANTEROL 200-25 MCG/DOSE IH SCH (12:27)
[2018-09-22] MEDS: NYSTATIN TOPICAL POWDER 15 GM TP SCH ×3 (12:28→17:21)
[2018-09-22] MEDS: OXYCODONE HCL IR 5 MG TABLET PO PRN ×2 (13:12→21:42)
[2018-09-22] MEDS: HYDRALAZINE HCL INJ/PF 20 MG/1 ML SDV IV PRN (13:12)
[2018-09-22] MEDS ORDERED: DIPHENHYDRAMINE HCL 25 MG CAPSULE PO PRN (15:25)
[2018-09-22] MEDS: CINACALCET HCL 30 MG TABLET PO SCH (17:19)
[2018-09-22] MEDS: CEFEPIME HCL 1.5 GM in DEXTROSE 5%-WATER 50 ML IV SCH (17:20)
--- NOTE | 2018-09-22 17:24 | PDOC PROGRESS REPORT ---
Subjective Progress Note for:: 09/22/18 Subjective:: JASPREET STAFFORD is a 52 year old female with a partial past medical history of renal replacement therapy for end-stage renal failure formally on hemodialysis currently on peritoneal dialysis. 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 Hospital service has assumed care. Patient was seen on afternoon rounds with mother present following dialysis. She is found resting in the bed, comfortably, on room air. She reports that her pain is currently well controlled. She denies fever, chills, chest pain, dyspnea, nausea and vomiting. Diarrhea has resolved. No concerns per nursing. Reason For Visit: ABDOMINAL WALL INFECTION Physical Exam Vital Signs: Temp Pulse Resp BP Pulse Ox 97.7 F 86 16 131/64 H 96 09/22/18 13:02 09/22/18 14:00 09/22/18 13:02 09/22/18 14:00 09/22/18 13:02 Intake & Output 09/21/18 09/22/18 09/23/18 06:59 06:59 06:59 Intake Total 655 662 250 Output Total 0 0 2600 Balance 655 662 -2350 Weight 149.8 kg 148.9 kg General appearance: PRESENT: no acute distress, morbidly obese, well-developed, well-nourished Head exam: PRESENT: atraumatic, normocephalic Eye exam: PRESENT: conjunctiva pink, EOMI, PERRLA. ABSENT: scleral icterus Ear exam: PRESENT: normal external ear exam Mouth exam: PRESENT: moist, tongue midline Neck exam: ABSENT: carotid bruit, JVD, lymphadenopathy, thyromegaly Respiratory exam: PRESENT: clear to auscultation shira, symmetrical, unlabored. ABSENT: rales, rhonchi, wheezes Cardiovascular exam: PRESENT: RRR. ABSENT: diastolic murmur, rubs, systolic murmur Pulses: PRESENT: normal dorsalis pedis pul Vascular exam: PRESENT: normal capillary refill GI/Abdominal exam: PRESENT: normal bowel sounds, soft. ABSENT: distended, guarding, mass, organolmegaly, rebound, tenderness Rectal exam: PRESENT: deferred Extremities exam: PRESENT: full ROM. ABSENT: calf tenderness, clubbing, pedal edema Neurological exam: PRESENT: alert, awake, oriented to person, oriented to place, oriented to time, oriented to situation, CN II-XII grossly intact, other - Extraparametal muscle twitching. ABSENT: motor sensory deficit Psychiatric exam: PRESENT: appropriate affect, normal mood. ABSENT: homicidal i deation, suicidal ideation Skin exam: PRESENT: dry, warm. ABSENT: cyanosis, intact - Wound VAC to abdominal wound, rash Results Laboratory Results: 09/22/18 05:34 09/22/18 05:34 09/22/18 09/22/18 05:34 05:34 WBC 16.4 H RBC 3.01 L Hgb 7.7 L Hct 23.6 L MCV 78 L MCH 25.4 L MCHC 32.5 RDW 18.6 H Plt Count 227 Sodium 136.4 L Potassium 4.2 Chloride 95 L Carbon Dioxide 22 Anion Gap 19 BUN 49 H Creatinine 13.06 H Est GFR ( Amer) 4 L Est GFR (Non-Af Amer) 3 L Glucose 112 H Calcium 9.2 09/16/18 23:55 Blood Blood Culture - Final NO GROWTH IN 5 DAYS 09/16/18 19:25 Blood Blood Culture - Final NO GROWTH IN 5 DAYS 09/19/18 13:22 Stool - Stool - Final 09/19/18 13:22 Stool - Stool Stool Culture - Final NO SALMONELLA, SHIGELLA, CAMPYLOBACTER, OR E.COLI 0157 RECOVERED. NEGATIVE FOR SHIGA TOXINS 1&2. 09/16/18 09/17/18 09/17/18 19:25 20:08 20:08 Creatine Kinase 24 L CK-MB (CK-2) 1.23 Troponin I 0.020 0.017 09/18/18 09/18/18 09/18/18 02:20 02:20 09:00 Creatine Kinase 21 L 26 L CK-MB (CK-2) 1.28 Troponin I 0.018 09/18/18 09:00 Creatine Kinase CK-MB (CK-2) 1.12 Troponin I 0.024 Impressions: Chest X-Ray 09/16/18 19:19 IMPRESSION: 1. No acute pulmonary findings. Assessment and Plan - Diagnosis (1) Calciphylaxis Is this a current diagnosis for this admission?: Yes Plan: Blood cultures are negative Wound cultures demonstrate multiple organisms; Corynebacterium, E. coli, Prevotella species, Pepto strep. Primary management per the surgical team. Now status post surgical debridement; wound care per surgery's recommendations. Wound VAC in place. Dr. Casper has started the patient on IV cefepime following dialysis. (2) ESRD (end stage renal disease) on dialysis Is this a current diagnosis for this admission?: Yes Plan: Euvolemic, without acidosis or hyperkalemia Nephrology is consulted; and receiving hemodialysis per their expertise. Continue PhosLo, Sensipar, and Calcitrol. (3) Morbid obesity with BMI of 40.0-44.9, adult Is this a current diagnosis for this admission?: Yes Plan: Lifestyle modification and dietary discretion are advised. Registered dietitian is consulted. (4) CHF (congestive heart failure) Qualifiers: Heart failure type: unspecified Heart failure chronicity: acute Qualified Code(s): I50.9 - Heart failure, unspecified Is this a current diagnosis for this admission?: Yes Plan: Stable without exacerbation at this time. Diastolic, compensated, avoid uncontrolled hypertension, tachycardia or fluid status. BiPAP ordered; encouraged use. Continue carvedilol 25 mg every 12 hours. Continue home dose of hydralazine 100 mg 3 times daily for blood pressure management. (5) Cirrhosis Is this a current diagnosis for this admission?: Yes Plan: Stable Continue home medication regiment (6) Diabetes mellitus type 2 in obese Is this a current diagnosis for this admission?: Yes Plan: One third dosing home dose Lantus; monitor for need to increase not the patient is tolerating p.o. Accu-Cheks every 6 hours with sliding scale insulin. Hypoglycemia protocol in place. Registered dietitian is consulted. Dialysis diet. (7) Hypertension Qualifiers: Hypertension type: essential hypertension Qualified Code(s): I10 - Essential (primary) hypertension Is this a current diagnosis for this admission?: Yes Plan: Continue home dose Coreg and hydralazine IV hydralazine as needed for blood pressure control. (8) Altered mental status Is this a current diagnosis for this admission?: Yes Plan: Resolved; now at baseline. Likely multifactorial secondary to uremia, pain, narcotic medications, and hypercapnia. Dialysis per nephrology's expertise. Have discontinued IV morphine and transitioned to sliding scale oxycodone with adequate relief of pain and improved mentation. Encourage BiPAP use. (9) C. difficile diarrhea Is this a current diagnosis for this admission?: Yes Plan: Reports loose stools have resolved. C. difficile PCR is positive. Stool cultures pending. Start vancomycin p.o. every 6 hours; Day #05/28 - Time Time Spent with patient: 15-24 minutes Medications reviewed and adjusted accordingly: Yes Anticipated discharge: Home with Homehealth Within: within 48 hours - Once cleared by surgery; wound VAC to be changed on Saturday
[2018-09-22] MEDS: INSULIN GLARGINE,HUM.REC.ANLOG 1,000 UNIT/10 ML VIAL SUBCUT SCH (21:44)
[2018-09-23] MEDS: OXYCODONE HCL IR 5 MG TABLET PO PRN ×3 (02:13→15:26)
[2018-09-23] MEDS: HYDRALAZINE HCL 50 MG TABLET PO SCH ×3 (05:33→21:25)
[2018-09-23] MEDS: VANCOMYCIN HCL INJ 500 MG VIAL PO SCH ×3 (05:34→20:26)
[2018-09-23] MEDS: ONDANSETRON 4 MG TAB.RAPDIS PO PRN (05:35)
[2018-09-23 06:08] LABS: HEMATOCRIT 24.1 % (36.0-47.0); MEAN CORPUSCULAR HEMOGLOBIN 25.6 pg (27.0-33.4); MEAN CORPUSCULAR HGB CONC 32.5 g/dL (32.0-36.0); MEAN CORPUSCULAR VOLUME 79 fl (80-97); PLATELET COUNT 208 10^3/uL (150-450); RED BLOOD COUNT 3.06 10^6/uL (3.72-5.28); RED CELL DISTRIBUTION WIDTH 18.7 % (11.5-14.0); WHITE BLOOD COUNT 14.4 10^3/uL (4.0-10.5)
[2018-09-23 06:43] LABS: HEMOGLOBIN 7.8 g/dL (12.0-15.5)
[2018-09-23] MEDS: HYDRALAZINE HCL INJ/PF 20 MG/1 ML SDV IV PRN (08:10)
[2018-09-23] MEDS: INSULIN LISPRO 100 UNIT/ML 3 ML VIAL SUBCUT SCH ×4 (08:28→21:26)
[2018-09-23] MEDS: IPRATROPIUM/ALBUTEROL 0.5-2.5 MG/3 ML AMPUL NEB SCH ×2 (08:34→20:35)
[2018-09-23] MEDS: SEVELAMER HCL 800 MG TABLET PO SCH ×3 (09:05→16:06)
[2018-09-23] MEDS: ENOXAPARIN SODIUM INJ 30 MG/0.3 ML DISP.SYRIN SUBCUT SCH (09:05)
[2018-09-23] MEDS: CALCITRIOL 0.25 MCG CAPSULE PO SCH (09:09)
[2018-09-23] MEDS: CARVEDILOL 12.5 MG TABLET PO SCH ×2 (09:09→21:26)
[2018-09-23] MEDS: PREGABALIN 75 MG CAPSULE PO SCH ×2 (09:09→21:26)
[2018-09-23] MEDS: FLUTICASONE/VILANTEROL 200-25 MCG/DOSE IH SCH (09:10)
[2018-09-23] MEDS: NYSTATIN TOPICAL POWDER 15 GM TP SCH ×3 (09:14→18:00)
[2018-09-23] MEDS: DEXTROSE 50%-WATER 25 GM/50 ML DISP.SYRIN IV PRN (13:31)
[2018-09-23] MEDS ORDERED: LIDOCAINE 0.5% INJ-PF (5 MG/ML) 50 ML SDV ONE (14:19)
[2018-09-23] MEDS ORDERED: BUPIVACAINE HCL 0.25 % INJ/PF (2.5 MG/1 ML) 30 ML VIAL ONE (14:19)
[2018-09-23] MEDS: CINACALCET HCL 30 MG TABLET PO SCH (16:07)
[2018-09-23] MEDS ORDERED: FENTANYL CITRATE INJ/PF 100 MCG/2 ML AMPUL ONE (16:40)
[2018-09-23] MEDS ORDERED: MIDAZOLAM 2 MG/2 ML INJ ONE (16:41)
[2018-09-23] MEDS ORDERED: PROPOFOL INJ 200 MG/20 ML VIAL IV ONE ×2 (16:41→16:42)
[2018-09-23] MEDS ORDERED: FENTANYL CITRATE INJ/PF 100 MCG/2 ML AMPUL IV PRN ×3 (17:32)
[2018-09-23] MEDS ORDERED: DIPHENHYDRAMINE HCL 50 MG/ML VIAL IV PRN (17:32)
[2018-09-23] MEDS ORDERED: ONDANSETRON HCL INJ/PF 4 MG/2 ML SDV IV PRN (17:32)
[2018-09-23] MEDS ORDERED: BUPIVACAINE HCL 0.25 % INJ/PF (2.5 MG/1 ML) 30 ML VIAL INJ ONE (17:33)
--- NOTE | 2018-09-23 17:40 | Operative Report ---
Operative Report DATE OF SURGERY: 09/23/18 PREOPERATIVE DIAGNOSIS: Abdominal wound infection with tissue necrosis. Perito juice dialysis catheter in place. Potential for peritonitis. POSTOPERATIVE DIAGNOSIS: Same OPERATION: Excision of peritoneal dialysis catheter. SURGEON: ARTUR ALANIS FIRE EATER: None. ANESTHESIA: LMAC TISSUE REMOVED OR ALTERED: A well incorporated double-cuff peritoneal dialysis catheter. Removed in its entirety including both cuffs. COMPLICATIONS: None. ESTIMATED BLOOD LOSS: 10 cc INTRAOPERATIVE FINDINGS: Peritoneal dialysis catheter, no sign of infection, removed in its entirety. PROCEDURE: After the sputum for the time of the procedure concluded. The patient continued to receive her scheduled antibiotic. The abdomen had been prepared with chlorhexidine and draped out with sterile linen. Local anesthesia was infiltrated along the scar of the previous incision. Dissection proceeded through the subcutaneous tissue which is extremely thick in this case. Down to the catheter. Catheter was placed on traction and divided. The external portion removed entirely. It was then dissected to the first cuff. This was completely dissected out. The catheter placed in slightly more traction and dissection proceeded down to the second cuff which was in the rectus muscle. This was dissected away superficially using cautery. It was then dissected away on both sides and posteriorly by blunt dissection using a tonsil clamp. With his cuff free the entire catheter was removed and discarded. The area was inspected for bleeding, there was no significant bleeding. The wound was not closed using interrupted sutures of 2-0 PDS. Dressings applied procedure concluded.
[2018-09-23] MEDS ORDERED: LIDOCAINE 0.5% INJ-PF (5 MG/ML) 50 ML SDV INJ ONE (17:42)
[2018-09-23] MEDS: FENTANYL CITRATE INJ/PF 100 MCG/2 ML AMPUL ONE ×2 (18:03→18:05)
--- NOTE | 2018-09-23 20:21 | PDOC PROGRESS REPORT ---
Subjective Progress Note for:: 09/23/18 Subjective:: 52-year-old female with a large abdominal wound due to calciphylaxis. The patient complains of pain at the wound. She is requesting that her wound VAC not be changed today. She reports fatigue, malaise, and abdominal pain. She denies shortness of breath, chest pain, headache, fevers, dizziness, blurry vision. Reason For Visit: ABDOMINAL WALL INFECTION Physical Exam Vital Signs: Temp Pulse Resp BP Pulse Ox 97.4 F 83 12 163/76 H 97 09/23/18 15:21 09/23/18 19:42 09/23/18 15:21 09/23/18 15:21 09/23/18 15:21 Intake & Output 09/22/18 09/23/18 09/24/18 06:59 06:59 06:59 Intake Total 662 1100 0 Output Total 0 2600 0 Balance 662 -1500 0 Weight 148.9 kg 140.8 kg General appearance: PRESENT: morbidly obese Head exam: PRESENT: atraumatic, normocephalic Eye exam: PRESENT: EOMI, PERRLA. ABSENT: scleral icterus Mouth exam: PRESENT: neck supple Teeth exam: PRESENT: poor dentation Neck exam: ABSENT: meningismus, tenderness, thyromegaly, tracheal deviation Respiratory exam: PRESENT: unlabored. ABSENT: retraction, tachypnea, wheezes Cardiovascular exam: PRESENT: RRR Pulses: PRESENT: normal radial pulses Vascular exam: ABSENT: pallor GI/Abdominal exam: PRESENT: other - Large wound to the right lower quadrant. VAC is in place.. ABSENT: distended Rectal exam: PRESENT: deferred Extremities exam: ABSENT: clubbing Musculoskeletal exam: ABSENT: deformity Neurological exam: PRESENT: alert, awake, oriented to person, oriented to place, oriented to time, oriented to situation, CN II-XII grossly intact Psychiatric exam: PRESENT: anxious, depressed Focused psych exam: ABSENT: delusional Skin exam: ABSENT: cyanosis, jaundice Results Laboratory Results: 09/23/18 05:12 09/22/18 05:34 09/23/18 05:12 WBC 14.4 H RBC 3.06 L Hgb 7.8 L Hct 24.1 L MCV 79 L MCH 25.6 L MCHC 32.5 RDW 18.7 H Plt Count 208 07/09/17/18 09/17/18 19:25 20:08 20:08 Creatine Kinase 24 L CK-MB (CK-2) 1.23 Troponin I 0.020 0.017 09/18/18 09/18/18 09/18/18 02:20 02:20 09:00 Creatine Kinase 21 L 26 L CK-MB (CK-2) 1.28 Troponin I 0.018 09/18/18 09:00 Creatine Kinase CK-MB (CK-2) 1.12 Troponin I 0.024 Impressions: Chest X-Ray 09/16/18 19:19 IMPRESSION: 1. No acute pulmonary findings. Assessment & Plan - Diagnosis (1) Calciphylaxis Is this a current diagnosis for this admission?: Yes (2) Infected abdominal wound Is this a current diagnosis for this admission?: Yes - Plan Summary Plan Summary: This is a 52-year-old female with a large abdominal wound secondary to calciphylaxis. I have discussed a wound VAC change with the patient, and she is requesting that it not be performed today. I will plan to change her wound VAC tomorrow at the bedside. The long-term plan is to continue the wound VAC for control of the wound and any drainage. Unfortunately with calciphylaxis, healing will be significantly delayed. I will assess the wound tomorrow. Any plan for further debridement will be made after examination of the wound.
[2018-09-23] MEDS ORDERED: TEMAZEPAM 15 MG CAPSULE ONE (21:10)
[2018-09-23] MEDS: INSULIN GLARGINE,HUM.REC.ANLOG 1,000 UNIT/10 ML VIAL SUBCUT SCH (21:26)
[2018-09-24] MEDS: VANCOMYCIN HCL INJ 500 MG VIAL PO SCH ×4 (00:56→17:20)
[2018-09-24 04:49] LABS: ABSOLUTE BASOPHILS # (AUTO) 0.1 10^3/uL (0.0-0.2); ABSOLUTE EOSINOPHILS # (AUTO) 0.1 10^3/uL (0.0-0.6); ABSOLUTE LYMPHOCYTES (AUTO) 1.7 10^3/uL (0.5-4.7); ABSOLUTE MONOCYTES (AUTO) 1.7 10^3/uL (0.1-1.4); ABSOLUTE NEUT (AUTO) 11.9 10^3/uL (1.7-8.2); BASOPHILS % (AUTO) 0.4 % (0-2); EOSINOPHILS % (AUTO) 0.9 % (0-6); HEMATOCRIT 25.5 % (36.0-47.0); HEMOGLOBIN 8.1 g/dL (12.0-15.5); LYMPHOCYTES % (AUTO) 11.2 % (13-45); MEAN CORPUSCULAR HEMOGLOBIN 25.2 pg (27.0-33.4); MEAN CORPUSCULAR HGB CONC 31.7 g/dL (32.0-36.0); MEAN CORPUSCULAR VOLUME 80 fl (80-97); MONOCYTES % (AUTO) 10.7 % (3-13); PLATELET COUNT 191 10^3/uL (150-450); RED BLOOD COUNT 3.21 10^6/uL (3.72-5.28); RED CELL DISTRIBUTION WIDTH 18.7 % (11.5-14.0); SEGMENTED NEUTROPHILS % (AUTO) 76.8 % (42-78); TOTAL CELLS COUNTED % (AUTO) 100 %; WHITE BLOOD COUNT 15.5 10^3/uL (4.0-10.5)
[2018-09-24] MEDS ORDERED: NORMAL SALINE 1000 ML 1,000 ML IV PRN (05:00)
[2018-09-24] MEDS ORDERED: HEPARIN SOD (PORCINE) 1,000 UNIT/ML 10 ML VIAL IV PRN (05:00)
[2018-09-24] MEDS ORDERED: EPOETIN ALFA-EPBX 40,000 UNIT/ML VIAL (RENAL) IV PRN (05:00)
[2018-09-24] MEDS ORDERED: EPOETIN ALFA INJ 40000 UNIT/1 ML (RENAL) IV PRN (05:00)
[2018-09-24 05:12] LABS: ANION GAP 17 (5-19); BLOOD UREA NITROGEN 37 mg/dL (7-20); CALCIUM 9.3 mg/dL (8.4-10.2); CARBON DIOXIDE 23 mmol/L (22-30); CHLORIDE 96 mmol/L (98-107); POTASSIUM 4.1 mmol/L (3.6-5.0)
[2018-09-24 05:13] LABS: GLUCOSE 57 mg/dL (75-110)
[2018-09-24] MEDS: HYDRALAZINE HCL 50 MG TABLET PO SCH ×3 (05:17→21:28)
--- NOTE | 2018-09-24 06:58 | PDOC PROGRESS REPORT ---
Subjective Progress Note for:: 09/23/18 Subjective:: Patient is sleeping soundly. Family reports that she tends to stay up all night sleep during the day. It was difficult to arouse her and she only stayed awake briefly. Reason For Visit: ABDOMINAL WALL INFECTION Physical Exam Vital Signs: Temp Pulse Resp BP Pulse Ox 97.4 F 82 19 124/75 99 09/23/18 12:32 09/23/18 14:00 09/23/18 12:32 09/23/18 12:32 09/23/18 12:32 Intake & Output 09/22/18 09/23/18 09/24/18 06:59 06:59 06:59 Intake Total 662 1100 0 Output Total 0 2600 0 Balance 662 -1500 0 Weight 148.9 kg 140.8 kg General appearance: PRESENT: no acute distress, morbidly obese. ABSENT: cooperative - Due to somnolence Head exam: PRESENT: atraumatic, normocephalic Respiratory exam: PRESENT: clear to auscultation shira, symmetrical, unlabored. ABSENT: rales, rhonchi, tachypnea, wheezes Cardiovascular exam: PRESENT: RRR, +S1, +S2 GI/Abdominal exam: PRESENT: distended - Pendulous abdomen, normal bowel sounds, soft, tenderness, other - VAC dressing on abdominal wound. Peritoneal dialysis catheter left lower quadrant. Extremities exam: PRESENT: pedal edema Neurological exam: PRESENT: awake - Difficult to awaken, oriented to person, oriented to place, oriented to situation. ABSENT: alert - Somnolent Psychiatric exam: PRESENT: flat affect. ABSENT: agitated, anxious Focused psych exam: ABSENT: delusional, restlessness Skin exam: PRESENT: other - Wound VAC on abdomen Results Laboratory Results: 09/23/18 05:12 09/22/18 05:34 09/23/18 05:12 WBC 14.4 H RBC 3.06 L Hgb 7.8 L Hct 24.1 L MCV 79 L MCH 25.6 L MCHC 32.5 RDW 18.7 H Plt Count 208 09/16/18 09/17/18 09/17/18 19:25 20:08 20:08 Creatine Kinase 24 L CK-MB (CK-2) 1.23 Troponin I 0.020 0.017 09/18/18 09/18/18 09/18/18 02:20 02:20 09:00 Creatine Kinase 21 L 26 L CK-MB (CK-2) 1.28 Troponin I 0.018 09/18/18 09:00 Creatine Kinase CK-MB (CK-2) 1.12 Troponin I 0.024 Impressions: Chest X-Ray 09/16/18 19:19 IMPRESSION: 1. No acute pulmonary findings. Assessment and Plan - Diagnosis (1) Calciphylaxis Is this a current diagnosis for this admission?: Yes Plan: Currently with VAC dressing in place. Family reports that this is been ongoing issue from early this year. We will continue VAC dressing as an outpatient and follow-up with the surgical clinic. Family reports a foul odor which was noticeable to this provider. It is possible that it is related to the wound drainage however this is in a self-contained vessel in the VAC system. Hygiene could also be contributing. (2) ESRD (end stage renal disease) on dialysis Is this a current diagnosis for this admission?: Yes Plan: Continue hemodialysis as an outpatient. (3) Morbid obesity with BMI of 40.0-44.9, adult Is this a current diagnosis for this admission?: Yes Plan: Would benefit from more aggressive dieting and lifestyle modification. (4) CHF (congestive heart failure) Qualifiers: Heart failure type: unspecified Heart failure chronicity: acute Qualified Code(s): I50.9 - Heart failure, unspecified Is this a current diagnosis for this admission?: Yes Plan: Continue current medication regimen as well as regular hemodialysis. Failure is considered to be diastolic. Currently with comfortable breathing. Continue to wean oxygen as tolerated. (5) Cirrhosis Is this a current diagnosis for this admission?: Yes Plan: Continue current regimen. AST, ALT and bilirubin currently normal. (6) Diabetes mellitus type 2 in obese Is this a current diagnosis for this admission?: Yes Plan: Continue current insulin regimen. (7) Altered mental status Is this a current diagnosis for this admission?: Yes Plan: Resolved. Multiple etiologies including her uremia, pain medications and hypercapnia on admission. (8) C. difficile diarrhea Is this a current diagnosis for this admission?: Yes Plan: C. difficile (9) Hypertension Qualifiers: Hypertension type: essential hypertension Qualified Code(s): I10 - Ess ential (primary) hypertension Is this a current diagnosis for this admission?: Yes Plan: Continue current medication regimen. - Time Time Spent with patient: 15-24 minutes Medications reviewed and adjusted accordingly: Yes Anticipated discharge: Home
[2018-09-24] MEDS: INSULIN LISPRO 100 UNIT/ML 3 ML VIAL SUBCUT SCH ×4 (08:22→21:21)
[2018-09-24] MEDS: IPRATROPIUM/ALBUTEROL 0.5-2.5 MG/3 ML AMPUL NEB SCH ×2 (08:27→20:15)
[2018-09-24] MEDS: CARVEDILOL 12.5 MG TABLET PO SCH ×2 (09:11→21:28)
[2018-09-24] MEDS: ENOXAPARIN SODIUM INJ 30 MG/0.3 ML DISP.SYRIN SUBCUT SCH (09:11)
[2018-09-24] MEDS: CALCITRIOL 0.25 MCG CAPSULE PO SCH (09:11)
[2018-09-24] MEDS: SEVELAMER HCL 800 MG TABLET PO SCH ×3 (09:11→17:20)
[2018-09-24] MEDS: PREGABALIN 75 MG CAPSULE PO SCH ×2 (09:11→21:28)
[2018-09-24] MEDS: FLUTICASONE/VILANTEROL 200-25 MCG/DOSE IH SCH (09:11)
[2018-09-24] MEDS: NYSTATIN TOPICAL POWDER 15 GM TP SCH ×3 (09:17→17:21)
[2018-09-24] MEDS: EPOETIN ALFA INJ 40000 UNIT/1 ML (RENAL) IV PRN (14:36)
[2018-09-24] MEDS: SODIUM THIOSULFATE IV SCH (15:55)
[2018-09-24] MEDS: NORMAL SALINE IV SCH (15:55)
--- NOTE | 2018-09-24 16:15 | PDOC PROGRESS REPORT ---
Subjective Progress Note for:: 09/24/18 Subjective:: I am seeing patient during her dialysis treatment today. She denies any complaints. Her peritoneal dialysis catheter was removed yesterday by Dr. Soriano. She requested Dr. Khalil not to change her wound VAC today so he will do it tomorrow per his note. Patient was requesting to get off the dialysis but tried to explain to her that we need to optimize her dialysis treatment for her calciphylaxis. When she goes for her outpatient dialysis her time will be 4 hours. Reason For Visit: ABDOMINAL WALL INFECTION Physical Exam Vital Signs: Temp Pulse Resp BP Pulse Ox 97.4 F 78 18 151/84 H 98 09/24/18 11:43 09/24/18 13:49 09/24/18 11:43 09/24/18 11:43 09/24/18 11:43 Intake & Output 09/23/18 09/24/18 09/25/18 06:59 06:59 06:59 Intake Total 1100 800 Output Total 2600 5 Balance -1500 795 Weight 140.8 kg 136.5 kg Vitals during dialysis: Blood pressure 141/65, heart rate of 75, blood flow rate of 350ml/min and dialysate flow rate of 600 mL/min. Exam: General appearance: PRESENT: no acute distress, cooperative, well-developed, well-nourished Head exam: PRESENT: atraumatic, normocephalic Eye exam: PRESENT: conjunctiva pale, PERRLA. ABSENT: scleral icterus Neck exam: ABSENT: JVD Respiratory exam: PRESENT: Normal breath sounds. ABSENT: crackles, rales, rhonchi, unlabored, wheezes Cardiovascular exam: PRESENT: Regular rate rhythm -+S1, +S2. ABSENT: diastolic murmur, systolic murmur GI/Abdominal exam: PRESENT: normal bowel sounds, soft. Right lower quadrant abdominal one is nicely covered with dressing. Left lower quadrant PD catheter site was also covered with dressing. ABSENT: guarding, mass, tenderness Extremities exam: ABSENT: No edema Neurological exam: PRESENT: alert, awake, oriented to person, place and time. Skin exam: PRESENT: dry, warm, Cardiovascular exam: PRESENT: +S1, +S2 GI/Abdominal exam: PRESENT: normal bowel sounds, soft. ABSENT: organomegaly, tenderness Results Laboratory Results: 09/24/18 04:23 09/24/18 04:23 09/24/18 09/24/18 04:23 04:23 WBC 15.5 H RBC 3.21 L Hgb 8.1 L Hct 25.5 L MCV 80 MCH 25.2 L MCHC 31.7 L RDW 18.7 H Plt Count 191 Seg Neutrophils % 76.8 Lymphocytes % 11.2 L Monocytes % 10.7 Eosinophils % 0.9 Basophils % 0.4 Absolute Neutrophils 11.9 H Absolute Lymphocytes 1.7 Absolute Monocytes 1.7 H Absolute Eosinophils 0.1 Absolute Basophils 0.1 Sodium 136.2 L Potassium 4.1 Chloride 96 L Carbon Dioxide 23 Anion Gap 17 BUN 37 H Creatinine 10.53 H Est GFR ( Amer) 5 L Est GFR (Non-Af Amer) 4 L Glucose 57 L Calcium 9.3 09/16/18 09/17/18 09/17/18 19:25 20:08 20:08 Creatine Kinase 24 L CK-MB (CK-2) 1.23 Troponin I 0.020 0.017 09/18/18 09/18/18 09/18/18 02:20 02:20 09:00 Creatine Kinase 21 L 26 L CK-MB (CK-2) 1.28 Troponin I 0.018 09/18/18 09:00 Creatine Kinase CK-MB (CK-2) 1.12 Troponin I 0.024 Impressions: Chest X-Ray 09/16/18 19:19 IMPRESSION: 1. No acute pulmonary findings. Assessment & Plan - Diagnosis (1) Calciphylaxis Is this a current diagnosis for this admission?: Yes Plan: Present on her right lower quadrant abdominal wall. Patient is currently now on sodium thiosulfate being given at 25 g 3 times a week post hemodialysis treatment started on September 11, 2018. This needs to be given for at least 3 months. (2) ESRD (end stage renal disease) on dialysis Is this a current diagnosis for this admission?: Yes Plan: We will do dialysis today for 3 hours, using the patient's PermCath, with 2 potassium bath, blood flow rate of 350 mL per minute, dialysate flow rate of 600 mL per minute, ultrafiltration 2.5L as tolerated, no heparin and Procrit with 40,000 units during dialysis intravenously. Patient will receive sodium thiosulfate at the end of the treatment. She will be monitored throughout dialysis treatment. Encourage patient to stay on the whole treatment. Explained the importance of optimizing dialysis for her condition. (3) Infected abdominal wound Is this a current diagnosis for this admission?: Yes Plan: Status post debridement by surgery on September 16. Wound culture is positive for E. coli. On IV cefepime. Still with significant leukocytosis. Currently with wound VAC and being followed by surgery. (4) Abdominal wall abscess Is this a current diagnosis for this admission?: Yes (5) C. difficile diarrhea Is this a current diagnosis for this admission?: Yes Plan: Diarrhea has stopped. Patient being treated with oral vancomycin per hospitalist service. (6) Morbid obesity with BMI of 40.0-44.9, adult Is this a current diagnosis for this admission?: Yes (7) Abdominal pain Qualifiers: Abdominal location: right lower quadrant Qualified Code(s): R10.31 - Right lower quadrant pain Is this a current diagnosis for this admission?: Yes Plan: Patient currently on pain medication. Patient is also followed by pain specialist as an outpatient. (8) Abdominal wall mass of right lower quadrant Is this a current diagnosis for this admission?: Yes Plan: This is due to calciphylaxis which has progressed to an abscess. (9) Anemia in chronic kidney disease (CKD) Qualifiers: Chronic kidney disease stage: unspecified stage Qualified Code(s): N18.9 - Chronic kidney disease, unspecified; D63.1 - Anemia in chronic kidney disease Is this a current diagnosis for this admission?: Yes Plan: We will continue to give Epogen during dialysis treatment, will adjust dose as necessary. Will check stool for occult blood. (10) Hypertension Qualifiers: Hypertension type: essential hypertension Qualified Code(s): I10 - Essential (primary) hypertension Is this a current diagnosis for this admission?: Yes Plan: This is labile and affected by dialysis treatment and her pain. Continue current blood pressure medications. (11) Type 2 diabetes mellitus Is this a current diagnosis for this admission?: Yes (12) Jerky body movements Is this a current diagnosis for this admission?: Yes Plan: Possibly due to Reglan. Discontinued Reglan. (13) Hyperphosphatemia Is this a current diagnosis for this admission?: Yes Plan: On sevelamer. (14) Secondary hyperparathyroidism (of renal origin) Is this a current diagnosis for this admission?: Yes Plan: On calcitriol. We will switch this to IV Hectorol once she is back on outpatient dialysis unit in [facility]. - Notes Notes: Once we see a downward trend of her white count, hopefully we can send her home at the end of this week. - Time Time with patient: 15-25 minutes
[2018-09-24] MEDS: CINACALCET HCL 30 MG TABLET PO SCH (17:20)
--- NOTE | 2018-09-24 17:54 | PDOC PROGRESS REPORT ---
Subjective Progress Note for:: 09/24/18 Subjective:: 52-year-old female with a large abdominal wound due to calciphylaxis. The patient complains of pain at the wound. She complains of a foul smell emanating from the wound. She reports fatigue, malaise, and abdominal pain. She denies shortness of breath, chest pain, headache, fevers, dizziness, blurry vision. Reason For Visit: ABDOMINAL WALL INFECTION Physical Exam Vital Signs: Temp Pulse Resp BP Pulse Ox 97.4 F 78 18 151/84 H 98 09/24/18 11:43 09/24/18 13:49 09/24/18 11:43 09/24/18 11:43 09/24/18 11:43 Intake & Output 09/23/18 09/24/18 09/25/18 06:59 06:59 06:59 Intake Total 1100 800 250 Output Total 2600 5 Balance -1500 795 250 Weight 140.8 kg 136.5 kg Results Laboratory Results: 09/24/18 04:23 09/24/18 04:23 09/24/18 09/24/18 04:23 04:23 WBC 15.5 H RBC 3.21 L Hgb 8.1 L Hct 25.5 L MCV 80 MCH 25.2 L MCHC 31.7 L RDW 18.7 H Plt Count 191 Seg Neutrophils % 76.8 Lymphocytes % 11.2 L Monocytes % 10.7 Eosinophils % 0.9 Basophils % 0.4 Absolute Neutrophils 11.9 H Absolute Lymphocytes 1.7 Absolute Monocytes 1.7 H Absolute Eosinophils 0.1 Absolute Basophils 0.1 Sodium 136.2 L Potassium 4.1 Chloride 96 L Carbon Dioxide 23 Anion Gap 17 BUN 37 H Creatinine 10.53 H Est GFR ( Amer) 5 L Est GFR (Non-Af Amer) 4 L Glucose 57 L Calcium 9.3 09/16/18 09/17/18 09/17/18 19:25 20:08 20:08 Creatine Kinase 24 L CK-MB (CK-2) 1.23 Troponin I 0.020 0.017 09/18/18 09/18/18 09/18/18 02:20 02:20 09:00 Creatine Kinase 21 L 26 L CK-MB (CK-2) 1.28 Troponin I 0.018 09/18/18 09:00 Creatine Kinase CK-MB (CK-2) 1.12 Troponin I 0.024 Impressions: Chest X-Ray 09/16/18 19:19 IMPRESSION: 1. No acute pulmonary findings. Assessment & Plan - Diagnosis (1) Calciphylaxis Is this a current diagnosis for this admission?: Yes (2) Infected abdominal wound Is this a current diagnosis for this admission?: Yes - Plan Summary Plan Summary: This is a 52-year-old female with a large abdominal wound secondary to calciphylaxis. I removed the wound VAC today. The wound has areas of g ranulation tissue, but there are also large portions of the wound that are necrotic and appear nonviable. I have recommended that the patient undergo debridement of the wound tomorrow. I will plan to perform this in the operating room. The patient is in agreement with the plan. N.p.o. after midnight. The long-term plan is to continue the wound VAC for control of the wound and any drainage.
[2018-09-24] MEDS: INSULIN GLARGINE,HUM.REC.ANLOG 1,000 UNIT/10 ML VIAL SUBCUT SCH (21:22)
[2018-09-24] MEDS: OXYCODONE HCL IR 5 MG TABLET PO PRN (21:28)
[2018-09-25] MEDS: VANCOMYCIN HCL INJ 500 MG VIAL PO SCH ×4 (00:49→17:16)
[2018-09-25] MEDS: OXYCODONE HCL IR 5 MG TABLET PO PRN ×2 (01:14→05:21)
[2018-09-25] MEDS: HYDRALAZINE HCL 50 MG TABLET PO SCH ×3 (05:21→22:35)
--- NOTE | 2018-09-25 08:12 | PDOC PROGRESS REPORT ---
Subjective Progress Note for:: 09/24/18 Subjective:: Patient is currently finishing up with her hemodialysis and is seen in the hemodialysis unit. The VAC dressing is currently off and the patient reports that the surgery will be debriding the wound tomorrow. This is consistent with the odor mentioned in yesterday's note. Reason For Visit: ABDOMINAL WALL INFECTION Physical Exam Vital Signs: Temp Pulse Resp BP Pulse Ox 97.4 F 78 18 151/84 H 98 09/24/18 11:43 09/24/18 13:49 09/24/18 11:43 09/24/18 11:43 09/24/18 11:43 Intake & Output 09/23/18 09/24/18 09/25/18 06:59 06:59 06:59 Intake Total 1100 800 Output Total 2600 5 Balance -1500 795 Weight 140.8 kg 136.5 kg General appearance: PRESENT: no acute distress, cooperative Head exam: PRESENT: atraumatic, normocephalic Eye exam: PRESENT: conjunctiva pink. ABSENT: scleral icterus Mouth exam: PRESENT: moist, tongue midline Respiratory exam: PRESENT: clear to auscultation shira - Anteriorly, decreased breath sounds - At bases, symmetrical. ABSENT: accessory muscle use, rales, rhonchi, tachypnea, wheezes Cardiovascular exam: PRESENT: RRR, +S1, +S2 GI/Abdominal exam: PRESENT: normal bowel sounds, soft, tenderness - Over the abdominal wall wound, other - Simple dressing over the abdominal wound. The VAC has been removed.. ABSENT: guarding Rectal exam: PRESENT: deferred Extremities exam: PRESENT: pedal edema Neurological exam: PRESENT: alert, awake, oriented to person, oriented to place, oriented to time, oriented to situation, CN II-XII grossly intact Psychiatric exam: PRESENT: flat affect. ABSENT: agitated, anxious Focused psych exam: ABSENT: delusional, restlessness Skin exam: PRESENT: other - Abdominal wound as above Results Laboratory Results: 09/24/18 04:23 09/24/18 04:23 09/24/18 09/24/18 04:23 04:23 WBC 15.5 H RBC 3.21 L Hgb 8.1 L Hct 25.5 L MCV 80 MCH 25.2 L MCHC 31.7 L RDW 18.7 H Plt Count 191 Seg Neutrophils % 76.8 Lymphocytes % 11.2 L Monocytes % 10.7 Eosinophils % 0.9 Basophils % 0.4 Absolute Neutrophils 11.9 H Absolute Lymphocytes 1.7 Absolute Monocytes 1.7 H Absolute Eosinophils 0.1 Absolute Basophils 0.1 Sodium 136.2 L Potassium 4.1 Chloride 96 L Carbon Dioxide 23 Anion Gap 17 BUN 37 H Creatinine 10.53 H Est GFR ( Amer) 5 L Est GFR (Non-Af Amer) 4 L Glucose 57 L Calcium 9.3 09/16/18 09/17/18 09/17/18 19:25 20:08 20:08 Creatine Kinase 24 L CK-MB (CK-2) 1.23 Troponin I 0.020 0.017 09/18/18 09/18/18 09/18/18 02:20 02:20 09:00 Creatine Kinase 21 L 26 L CK-MB (CK-2) 1.28 Troponin I 0.018 09/18/18 09:00 Creatine Kinase CK-MB (CK-2) 1.12 Troponin I 0.024 Impressions: Chest X-Ray 09/16/18 19:19 IMPRESSION: 1. No acute pulmonary findings. Assessment and Plan - Diagnosis (1) Calciphylaxis Is this a current diagnosis for this admission?: Yes Plan: Currently with VAC dressing in place. Family reports that this is been ongoing issue from early this year. We will continue VAC dressing as an outpatient and follow-up with the surgical clinic. Family reports a foul odor which was noticeable to this provider. It is possible that it is related to the wound drainage however this is in a self-contained vessel in the VAC system. Hygiene could also be contributing. 09/24/2018-surgery saw the patient earlier. The remove the VAC dressing. I did not examine the wound directly but the patient reported that she will need further debridement with surgery tomorrow. (2) ESRD (end stage renal disease) on dialysis Is this a current diagnosis for this admission?: Yes Plan: Continue hemodialysis as an outpatient. 09/24/2018-the patient is completing her hemodialysis treatment. After discharge she will continue hemodialysis as an outpatient. (3) Morbid obesity with BMI of 40.0-44.9, adult Is this a current diagnosis for this admission?: Yes Plan: Would benefit from more aggressive dieting and lifestyle modification. 09/24/2018-the patient reports that her appetite is decreased. There is been an order for Glucerna meal trays. According to the patient she is not receiving these. I have reached out to dietary to follow-up to ensure that it is the appropriate supplement and in fact that the patient is receiving them. (4) CHF (congestive heart failure) Qualifiers: Heart failure type: unspecified Heart failure chronicity: acute Qualified Code(s): I50.9 - Heart failure, unspecified Is this a current diagnosis for this admission?: Yes Plan: Continue current medication regimen as well as regular hemodialysis. Failure is considered to be diastolic. Currently with comfortable breathing. Continue to wean oxygen as tolerated. 09/24/2018-breathing has become much more comfortable. Patient receiving scheduled dialysis. Continue current medication regimen. I have added a cardiac component to her dialysis diet. (5) Cirrhosis Is this a current diagnosis for this admission?: Yes Plan: Continue current regimen. AST, ALT and bilirubin currently normal. 09/24/2018-no change in current plan. (6) Diabetes mellitus type 2 in obese Is this a current diagnosis for this admission?: Yes Plan: Continue current insulin regimen. 09/24/2018-very good control with most Accu-Cheks below 150 and remaining are below 200. (7) Altered mental status Is this a current diagnosis for this admission?: Yes Plan: Resolved. Multiple etiologies including her uremia, pain medications and hypercapnia on admission. (8) C. difficile diarrhea Is this a current diagnosis for this admission?: Yes Plan: C. difficile serology positive 09/24/2018-complete oral vancomycin as ordered. (9) Hypertension Qualifiers: Hypertension type: essential hypertension Qualified Code(s): I10 - Essential (primary) hypertension Is this a current diagnosis for this admission?: Yes Plan: Continue current medication regimen. 09/24/2018-systolic blood pressure still slightly higher than desired. Will review current medication regimen and consider changes. - Time Time Spent with patient: 15-24 minutes Medications reviewed and adjusted accordingly: Yes Anticipated discharge: Home with Homehealth
--- NOTE | 2018-09-25 08:13 | PDOC PROGRESS REPORT ---
Subjective Progress Note for:: 09/25/18 Reason For Visit: ABDOMINAL WALL INFECTION Patient aware she is in to be taken back to the operating room for abdominal wall re-debridement. Physical Exam Vital Signs: Temp Pulse Resp BP Pulse Ox 98.8 F 82 16 148/79 H 96 09/25/18 04:22 09/25/18 04:22 09/25/18 04:22 09/25/18 04:22 09/25/18 04:22 Intake & Output 09/24/18 09/25/18 09/26/18 06:59 06:59 06:59 Intake Total 800 590 Output Total 5 3400 Balance 795 -2810 Weight 136.5 kg 140.5 kg General appearance: PRESENT: no acute distress GI/Abdominal exam: PRESENT: other - VAC in place. Results Laboratory Results: 09/24/18 04:23 09/24/18 04:23 09/16/18 09/17/18 09/17/18 19:25 20:08 20:08 Creatine Kinase 24 L CK-MB (CK-2) 1.23 Troponin I 0.020 0.017 09/18/18 09/18/18 09/18/18 02:20 02:20 09:00 Creatine Kinase 21 L 26 L CK-MB (CK-2) 1.28 Troponin I 0.018 09/18/18 09:00 Creatine Kinase CK-MB (CK-2) 1.12 Troponin I 0.024 Impressions: Chest X-Ray 09/16/18 19:19 IMPRESSION: 1. No acute pulmonary findings. Assessment & Plan - Diagnosis (1) Abdominal wall abscess Is this a current diagnosis for this admission?: Yes Plan: Impression: Devitalized and persisting infected tissue abdominal wall despite aggressive antibiotic and wound VAC therapy Recommendations: 1. We will take patient back to the operating room for debridement. Patient in agreement to proceed. 2. She has secondary on sodium thiosulfate, calcium, and Rocaltrol. PTH level earlier this year was over thousand and is now down in the 600s. Discussed the role of parathyroidectomy with Dr. Franck Casper. He will review current guidelines and feedback to the surgery service. (2) C. difficile diarrhea Is this a current diagnosis for this admission?: Yes (3) Calciphylaxis Is this a current diagnosis for this admission?: Yes (4) ESRD (end stage renal disease) on dialysis Is this a current diagnosis for this admission?: Yes
[2018-09-25] MEDS: INSULIN LISPRO 100 UNIT/ML 3 ML VIAL SUBCUT SCH ×4 (08:15→22:29)
[2018-09-25] MEDS: SEVELAMER HCL 800 MG TABLET PO SCH ×3 (08:35→16:22)
[2018-09-25] MEDS: IPRATROPIUM/ALBUTEROL 0.5-2.5 MG/3 ML AMPUL NEB SCH ×2 (08:43→20:07)
[2018-09-25] MEDS: NYSTATIN TOPICAL POWDER 15 GM TP SCH ×2 (10:31→13:01)
[2018-09-25] MEDS: PREGABALIN 75 MG CAPSULE PO SCH ×2 (10:31→22:35)
[2018-09-25] MEDS: ENOXAPARIN SODIUM INJ 30 MG/0.3 ML DISP.SYRIN SUBCUT SCH (10:31)
[2018-09-25] MEDS: CARVEDILOL 12.5 MG TABLET PO SCH ×2 (10:31→22:35)
[2018-09-25] MEDS: CALCITRIOL 0.25 MCG CAPSULE PO SCH (10:31)
[2018-09-25] MEDS: FLUTICASONE/VILANTEROL 200-25 MCG/DOSE IH SCH (10:40)
[2018-09-25] MEDS ORDERED: METOCLOPRAMIDE HCL INJ/PF 10 MG/2 ML SDV ONE (13:34)
[2018-09-25] MEDS: CINACALCET HCL 30 MG TABLET PO SCH (16:22)
[2018-09-25] MEDS: FOLIC ACID/VITAMIN B COMP W-C CAPSULE PO SCH (16:22)
[2018-09-25] MEDS ORDERED: PROPOFOL INJ 200 MG/20 ML VIAL IV ONE ×2 (18:39→20:43)
[2018-09-25] MEDS ORDERED: MIDAZOLAM 2 MG/2 ML INJ ONE (18:39)
[2018-09-25] MEDS ORDERED: MEPERIDINE HCL/PF INJ 25 MG/1 ML DISP.SYRIN IV PRN (19:13)
[2018-09-25] MEDS ORDERED: DIPHENHYDRAMINE HCL 50 MG/ML VIAL IV PRN (19:13)
[2018-09-25] MEDS ORDERED: FENTANYL CITRATE INJ/PF 100 MCG/2 ML AMPUL IV PRN ×3 (19:13)
[2018-09-25] MEDS ORDERED: PROMETHAZINE HCL INJ 25 MG/1 ML VIAL IV PRN (19:13)
--- NOTE | 2018-09-25 20:27 | Operative Report ---
Nonrecallable Operative Report DATE OF SURGERY: 09/25/18 PREOPERATIVE DIAGNOSIS: Persisting soft tissue infection of the skin and subcutaneous tissue abdominal wall, polymicrobial POSTOPERATIVE DIAGNOSIS: Same OPERATION: Excisional debridement of nonviable and infected skin, subcutaneous tissue, and pulse lavage irrigation of large abdominal wall SURGEON: KELI FUENTES ANESTHESIA: LMAC TISSUE REMOVED OR ALTERED: Nonviable necrotic skin and subcutaneous tissue COMPLICATIONS: None ESTIMATED BLOOD LOSS: 50 cc INTRAOPERATIVE FINDINGS: See below PROCEDURE: The patient was taken to the operating room where LMAC anesthesia was induced. She was placed supine position existing dressings removed. The large abdominal wall wound approximately 20 x 40 cm was exposed, prepped with Betadine Surgical plan surgical timeout were conducted. Using a combination of blunt and #10 blade, skin and subcutaneous tissue was excised from the medial aspect of the wound as well as the roberst of the wound. There was a thin sheen of granulation tissue of approximately 65% of the wound. The rest of the wound was desiccated, but did bleed when cut into. We did excise approximately 25 cm of additional skin on the medial aspect of the wound. All pockets were broken up and purulent drainage evacuated. We felt the operation was successful in eradicating all nonviable skin and subcutaneous tissue. Without pulse lavage the wound with saline. Hemostasis was achieved with electrocautery. Wound packed with 3 Kerlix rolls tied together in continuity. Abdominal dressings applied. Tape applied. Patient tolerated procedure well, taken to recovery room in stable condition.
[2018-09-25] MEDS: FENTANYL CITRATE INJ/PF 100 MCG/2 ML AMPUL ONE ×2 (20:45→20:50)
[2018-09-25] MEDS: INSULIN GLARGINE,HUM.REC.ANLOG 1,000 UNIT/10 ML VIAL SUBCUT SCH (22:29)
[2018-09-26] MEDS: VANCOMYCIN HCL INJ 500 MG VIAL PO SCH ×3 (00:10→13:30)
[2018-09-26] MEDS ORDERED: EPOETIN ALFA INJ 40000 UNIT/1 ML (RENAL) IV PRN (05:00)
[2018-09-26] MEDS ORDERED: EPOETIN ALFA-EPBX 40,000 UNIT/ML VIAL (RENAL) IV PRN (05:00)
[2018-09-26] MEDS ORDERED: HEPARIN SOD (PORCINE) 1,000 UNIT/ML 10 ML VIAL IV PRN (05:00)
[2018-09-26] MEDS ORDERED: NORMAL SALINE 1000 ML 1,000 ML IV PRN (05:00)
[2018-09-26] MEDS: HYDRALAZINE HCL 50 MG TABLET PO SCH ×3 (05:32→21:32)
[2018-09-26 06:26] LABS: HEMATOCRIT 24.5 % (36.0-47.0); MEAN CORPUSCULAR HEMOGLOBIN 25.4 pg (27.0-33.4); MEAN CORPUSCULAR HGB CONC 31.7 g/dL (32.0-36.0); MEAN CORPUSCULAR VOLUME 80 fl (80-97); PLATELET COUNT 195 10^3/uL (150-450); RED BLOOD COUNT 3.06 10^6/uL (3.72-5.28); WHITE BLOOD COUNT 21.1 10^3/uL (4.0-10.5)
[2018-09-26 06:36] LABS: HEMOGLOBIN 7.8 g/dL (12.0-15.5)
[2018-09-26 06:37] LABS: BLOOD UREA NITROGEN 30 mg/dL (7-20); CALCIUM 9.7 mg/dL (8.4-10.2); CARBON DIOXIDE 19 mmol/L (22-30); CHLORIDE 94 mmol/L (98-107); GLUCOSE 182 mg/dL (75-110); PHOSPHORUS 5.4 mg/dL (2.5-4.5); POTASSIUM 4.8 mmol/L (3.6-5.0)
[2018-09-26 06:47] LABS: ANION GAP 21 (5-19)
[2018-09-26 07:12] LABS: ABSOLUTE LYMPHOCYTES# (MANUAL) 1.9 10^3/uL (0.5-4.7); ABSOLUTE MONOCYTES # (MANUAL) 2.1 10^3/uL (0.1-1.4); BAND NEUTROPHILS % (MANUAL) 1 % (3-5); BASOPHILS % (MANUAL) 0 % (0-2); EOSINOPHILS % (MANUAL) 0 % (0-6); LYMPHOCYTES % (MANUAL) 9 % (13-45); MONOCYTES % (MANUAL) 10 % (3-13); NUCLEATED RED BLOOD CELLS 1 /100 WBC (0); SEGMENTED NEUTROPHILS % (MAN) 80 % (42-78); TOTAL CELLS COUNTED 100
[2018-09-26 07:13] LABS: ANISOCYTOSIS 2+; HYPOCHROMASIA 2+
[2018-09-26 07:14] LABS: PLATELET COMMENT ADEQUATE
[2018-09-26] MEDS: INSULIN LISPRO 100 UNIT/ML 3 ML VIAL SUBCUT SCH ×4 (07:25→21:32)
[2018-09-26] MEDS: SEVELAMER HCL 800 MG TABLET PO SCH ×3 (07:26→16:02)
--- NOTE | 2018-09-26 08:41 | PDOC PROGRESS REPORT ---
Subjective Progress Note for:: 09/25/18 Subjective:: Patient resting on the edge of the bed. She appears to be at her baseline. She is wondering when she will have her surgery. Reason For Visit: ABDOMINAL WALL INFECTION Physical Exam Vital Signs: Temp Pulse Resp BP Pulse Ox 98.8 F 77 16 148/79 H 94 09/25/18 04:22 09/25/18 08:43 09/25/18 08:43 09/25/18 04:22 09/25/18 08:43 Intake & Output 09/24/18 09/25/18 09/26/18 06:59 06:59 06:59 Intake Total 800 590 Output Total 5 3400 Balance 795 -2810 Weight 136.5 kg 140.5 kg General appearance: PRESENT: no acute distress, cooperative, morbidly obese Head exam: PRESENT: atraumatic, normocephalic Ear exam: PRESENT: normal external ear exam Mouth exam: PRESENT: moist, tongue midline Respiratory exam: PRESENT: decreased breath sounds - At bases bilaterally. ABSENT: rales, rhonchi, wheezes Cardiovascular exam: PRESENT: RRR, +S1, +S2 GI/Abdominal exam: PRESENT: hypoactive bowel sounds, soft, tenderness - Near the abdominal wound, other - Pendulous abdomen Rectal exam: PRESENT: deferred Gentrourinary exam: ABSENT: indwelling catheter Extremities exam: PRESENT: pedal edema Musculoskeletal exam: PRESENT: normal inspection Neurological exam: PRESENT: alert, awake, oriented to person, oriented to place, oriented to situation Psychiatric exam: PRESENT: flat affect. ABSENT: agitated, anxious Focused psych exam: ABSENT: delusional, restlessness Results Laboratory Results: 09/24/18 04:23 09/24/18 04:23 09/16/18 09/17/18 09/17/18 19:25 20:08 20:08 Creatine Kinase 24 L CK-MB (CK-2) 1.23 Troponin I 0.020 0.017 09/18/18 09/18/18 09/18/18 02:20 02:20 09:00 Creatine Kinase 21 L 26 L CK-MB (CK-2) 1.28 Troponin I 0.018 09/18/18 09:00 Creatine Kinase CK-MB (CK-2) 1.12 Troponin I 0.024 Impressions: Chest X-Ray 09/16/18 19:19 IMPRESSION: 1. No acute pulmonary findings. Assessment and Plan - Diagnosis (1) Calciphylaxis Is this a current diagnosis for this admission?: Yes Plan: Currently with VAC dressing in place. Family reports that this is been ongoing issue from early this year. We will continue VAC dressing as an outpatient and follow-up with the surgical clinic. Family reports a foul odor which was noticeable to this provider. It is possible that it is related to the wound drainage however this is in a self-contained vessel in the VAC system. Hygiene could also be contributing. 09/24/2018-surgery saw the patient earlier. The remove the VAC dressing. I did not examine the wound directly but the patient reported that she will need further debridement with surgery tomorrow. 09/25/2018-patient somewhat anxious. Waiting to go to the OR. I believe she will be going at 3:00 this afternoon. Please also see surgery notes. (2) ESRD (end stage renal disease) on dialysis Is this a current diagnosis for this admission?: Yes Plan: Continue hemodialysis as an outpatient. 09/24/2018-the patient is completing her hemodialysis treatment. After discharge she will continue hemodialysis as an outpatient. 09/25/2018-scheduled for hemodialysis tomorrow. (3) Morbid obesity with BMI of 40.0-44.9, adult Is this a current diagnosis for this admission?: Yes Plan: Would benefit from more aggressive dieting and lifestyle modification. 09/24/2018-the patient reports that her appetite is decreased. There is been an order for Glucerna meal trays. According to the patient she is not receiving t hese. I have reached out to dietary to follow-up to ensure that it is the appropriate supplement and in fact that the patient is receiving them. 09/25/2018-as above (4) CHF (congestive heart failure) Qualifiers: Heart failure type: unspecified Heart failure chronicity: acute Qualified Code(s): I50.9 - Heart failure, unspecified Is this a current diagnosis for this admission?: Yes Plan: Continue current medication regimen as well as regular hemodialysis. Failure is considered to be diastolic. Currently with comfortable breathing. Continue to wean oxygen as tolerated. 09/24/2018-breathing has become much more comfortable. Patient receiving scheduled dialysis. Continue current medication regimen. I have added a cardiac component to her dialysis diet. 09/25/2018-the patient continues in a net negative fluid balance with the inclusion of hemodialysis. Continue current regimen. (5) Cirrhosis Is this a current diagnosis for this admission?: Yes Plan: Continue current regimen. AST, ALT and bilirubin currently normal. 09/24/2018-no change in current plan. 09/25/2018-continue conservative plan. (6) Diabetes mellitus type 2 in obese Is this a current diagnosis for this admission?: Yes Plan: Continue current insulin regimen. 09/24/2018-very good control with most Accu-Cheks below 150 and remaining are below 200. 09/25/2018-all Accu-Cheks remain below 200. No change in treatment plan. (7) Altered mental status Is this a current diagnosis for this admission?: Yes Plan: Resolved. Multiple etiologies including her uremia, pain medications and hypercapnia on admission. 09/25/2018-as above. We will continue to monitor. (8) C. difficile diarrhea Is this a current diagnosis for this admission?: Yes Plan: C. difficile serology positive 09/24/2018-complete oral vancomycin as ordered. 09/25/2018-continue vancomycin (9) Hypertension Qualifiers: Hypertension type: essential hypertension Qualified Code(s): I10 - Essential (primary) hypertension Is this a current diagnosis for this admission?: Yes Plan: Continue current medication regimen. 09/24/2018-systolic blood pressure still slightly higher than desired. Will review current medication regimen and consider changes. 09/25/2018-continue current regimen for now. Hectic schedule with the OR this afternoon and possible surgery for her parathyroid glands. We will hold off on making acute changes at this time unless clinically warranted. - Time Time Spent with patient: 15-24 minutes Medications reviewed and adjusted accordingly: Yes
[2018-09-26] MEDS: IPRATROPIUM/ALBUTEROL 0.5-2.5 MG/3 ML AMPUL NEB SCH ×2 (08:46→20:34)
--- NOTE | 2018-09-26 08:51 | PDOC PROGRESS REPORT ---
Subjective Progress Note for:: 09/26/18 Subjective:: sleepy difficult to communicate with sittting in dialysis chair Reason For Visit: ABDOMINAL WALL INFECTION Physical Exam Vital Signs: Temp Pulse Resp BP Pulse Ox 97.9 F 84 20 107/67 100 09/26/18 04:00 09/26/18 07:00 09/26/18 04:00 09/26/18 04:00 09/26/18 04:00 Intake & Output 09/25/18 09/26/18 09/27/18 06:59 06:59 06:59 Intake Total 590 3700 Output Total 3400 3000 Balance -2810 700 Weight 140.5 kg General appearance: PRESENT: morbidly obese Head exam: PRESENT: normocephalic Eye exam: PRESENT: EOMI Ear exam: PRESENT: normal external ear exam Mouth exam: PRESENT: moist Neck exam: PRESENT: full ROM Respiratory exam: PRESENT: clear to auscultation shira Cardiovascular exam: PRESENT: RRR GI/Abdominal exam: PRESENT: other - wound in llq recently debrided still small areas of necrotic fat min granulation tissue Rectal exam: PRESENT: deferred Extremities exam: PRESENT: +1 edema Musculoskeletal exam: PRESENT: full ROM Neurological exam: PRESENT: awake Skin exam: PRESENT: dry Results Laboratory Results: 09/26/18 05:53 09/26/18 05:53 09/26/18 09/26/18 05:53 05:53 WBC 21.1 H RBC 3.06 L Hgb 7.8 L Hct 24.5 L MCV 80 MCH 25.4 L MCHC 31.7 L RDW 19.0 H Plt Count 195 Seg Neutrophils % Not Reportable Lymphocytes % Not Reportable Monocytes % Not Reportable Eosinophils % Not Reportable Basophils % Not Reportable Absolute Neutrophils Not Reportable Absolute Lymphocytes Not Reportable Absolute Monocytes Not Reportable Absolute Eosinophils Not Reportable Absolute Basophils Not Reportable Sodium 134.3 L Potassium 4.8 Chloride 94 L Carbon Dioxide 19 L Anion Gap 21 H BUN 30 H Creatinine 9.08 H Est GFR ( Amer) 6 L Est GFR (Non-Af Amer) 5 L Glucose 182 H Calcium 9.7 Phosphorus 5.4 H 09/16/18 09/17/18 09/17/18 19:25 20:08 20:08 Creatine Kinase 24 L CK-MB (CK-2) 1.23 Troponin I 0.020 0.017 09/18/18 09/18/18 09/18/18 02:20 02:20 09:00 Creatine Kinase 21 L 26 L CK-MB (CK-2) 1.28 Troponin I 0.018 09/18/18 09:00 Creatine Kinase CK-MB (CK-2) 1.12 Troponin I 0.024 Impressions: Chest X-Ray 09/16/18 19:19 IMPRESSION: 1. No acute pulmonary findings. Assessment & Plan - Diagnosis (1) Calciphylaxis Is this a current diagnosis for this admission?: Yes - Plan Summary Plan Summary: recent redebridement of rlq abd skin necrosis now with wet to dry dressing changes cont with wet to dry dressing changes today may switch to vac in couple of days.
--- NOTE | 2018-09-26 09:45 | PDOC PROGRESS REPORT ---
Subjective Progress Note for:: 09/26/18 Subjective:: I saw the patient on dialysis this morning. She seems a little lethargic but arousable. I was told that there was a delay on initiation of dialysis this morning because the patient would not want to transfer into the bed from the recliner where she was at and they needed to call the security for her to move but eventually she walked on the bed anyway. She underwent another debridement by Dr. Gallo last night and found some necrotic tissue and purulent drainage. Her right lower quadrant abdominal wound is currently wet and foul-smelling. She is tolerating dialysis now so and so far without any complications. Reason For Visit: ABDOMINAL WALL INFECTION Physical Exam Vital Signs: Temp Pulse Resp BP Pulse Ox 97.9 F 84 20 107/67 100 09/26/18 04:00 09/26/18 07:00 09/26/18 04:00 09/26/18 04:00 09/26/18 04:00 Intake & Output 09/25/18 09/26/18 09/27/18 06:59 06:59 06:59 Intake Total 590 3700 Output Total 3400 3000 Balance -2810 700 Weight 140.5 kg Exam: General appearance: PRESENT: Somnolent but arousable, no acute distress, cooperative, well-developed, well-nourished Head exam: PRESENT: atraumatic, normocephalic Eye exam: PRESENT: conjunctiva pale, PERRLA. ABSENT: scleral icterus Neck exam: ABSENT: JVD Respiratory exam: PRESENT: Normal breath sounds. ABSENT: crackles, rales, rh onchi, unlabored, wheezes Cardiovascular exam: PRESENT: Regular rate rhythm -+S1, +S2. ABSENT: diastolic murmur, systolic murmur GI/Abdominal exam: PRESENT: normal bowel sounds, soft. Right lower quadrant abdominal wound is covered in dressing but the dressing is wet and there is foul smell. ABSENT: guarding, mass, tenderness Extremities exam: Trace bilateral lower extremity pitting edema Neurological exam: PRESENT: Somnolent but arousable, oriented to person, place but not to time. Skin exam: PRESENT: dry, warm, Cardiovascular exam: PRESENT: +S1, +S2 GI/Abdominal exam: PRESENT: normal bowel sounds, soft. ABSENT: organomegaly, tenderness Results Laboratory Results: 09/26/18 05:53 08/09/19 05:53 09/26/18 09/26/18 05:53 05:53 WBC 21.1 H RBC 3.06 L Hgb 7.8 L Hct 24.5 L MCV 80 MCH 25.4 L MCHC 31.7 L RDW 19.0 H Plt Count 195 Seg Neutrophils % Not Reportable Lymphocytes % Not Reportable Monocytes % Not Reportable Eosinophils % Not Reportable Basophils % Not Reportable Absolute Neutrophils Not Reportable Absolute Lymphocytes Not Reportable Absolute Monocytes Not Reportable Absolute Eosinophils Not Reportable Absolute Basophils Not Reportable Sodium 134.3 L Potassium 4.8 Chloride 94 L Carbon Dioxide 19 L Anion Gap 21 H BUN 30 H Creatinine 9.08 H Est GFR ( Amer) 6 L Est GFR (Non-Af Amer) 5 L Glucose 182 H Calcium 9.7 Phosphorus 5.4 H 09/16/18 09/17/18 09/17/18 19:25 20:08 20:08 Creatine Kinase 24 L CK-MB (CK-2) 1.23 Troponin I 0.020 0.017 09/18/18 09/18/18 09/18/18 02:20 02:20 09:00 Creatine Kinase 21 L 26 L CK-MB (CK-2) 1.28 Troponin I 0.018 09/18/18 09:00 Creatine Kinase CK-MB (CK-2) 1.12 Troponin I 0.024 Impressions: Chest X-Ray 09/16/18 19:19 IMPRESSION: 1. No acute pulmonary findings. Assessment & Plan - Diagnosis (1) Calciphylaxis Is this a current diagnosis for this admission?: Yes Plan: Present on her right lower quadrant abdominal wall. Patient is currently now on sodium thiosulfate being given at 25 g 3 times a week post hemodialysis treatment started on September 11, 2018. This needs to be given for at least 3 months. Generally this is poor prognosis and may lead to on occasions. There is really no proven good treatment for calciphylaxis unfortunately. Sodium thiosulfate is the one medication being used to treat it with patient's may or may not respond. I do not think that parathyroidectomy is going to make any difference at this point. (2) ESRD (end stage renal disease) on dialysis Is this a current diagnosis for this admission?: Yes Plan: We will do dialysis today for 3 hours, using the patient's PermCath, with 2 potassium bath, blood flow rate of 350 mL per minute, dialysate flow rate of 800 mL per minute, ultrafiltration 2 to 3 L as tolerated, no heparin and Procrit with 40,000 units during dialysis intravenously. Discussed dialysis plan with her dialysis nurse. Patient will be monitored throughout dialysis treatment. (3) Infected abdominal wound Is this a current diagnosis for this admission?: Yes Plan: Status post debridement by surgery on September 16. Given a week of IV cefepime. Currently with increasing leukocytosis. Status post second debridement last night, 09/25. Original wound culture on 09/16/2018 was polymicrobial. I called and discussed the case with Dr. Rm. I am worried that the patient is going to impending sepsis given increasing leukocytosis despite antibiotics and current treatment. I will start patient on IV meropenem today and I recommended ID consult which Dr. Eisenberg will take care of. Appreciate surgery service following the patient. (4) Abdominal wall abscess Is this a current diagnosis for this admission?: Yes (5) C. difficile diarrhea Is this a current diagnosis for this admission?: Yes Plan: Diarrhea has stopped. Patient being treated with oral vancomycin per hospitalis t service. (6) Abdominal pain Qualifiers: Abdominal location: right lower quadrant Qualified Code(s): R10.31 - Right lower quadrant pain Is this a current diagnosis for this admission?: Yes Plan: He is a patient's mental status I agree with discontinuation of the oxycodone for now. I will also stop the patient's Lyrica. (7) Abdominal wall mass of right lower quadrant Is this a current diagnosis for this admission?: Yes Plan: This is due to calciphylaxis which has progressed to an abscess. (8) Anemia in chronic kidney disease (CKD) Qualifiers: Chronic kidney disease stage: unspecified stage Qualified Code(s): N18.9 - Chronic kidney disease, unspecified; D63.1 - Anemia in chronic kidney disease Is this a current diagnosis for this admission?: Yes Plan: We will continue to give Epogen during dialysis treatment, will adjust dose as necessary. (9) Hypertension Qualifiers: Hypertension type: essential hypertension Qualified Code(s): I10 - Essential (primary) hypertension Is this a current diagnosis for this admission?: Yes Plan: This is labile and affected by dialysis treatment and her pain. Continue current blood pressure medications. (10) Type 2 diabetes mellitus Is this a current diagnosis for this admission?: Yes (11) Jerky body movements Is this a current diagnosis for this admission?: Yes Plan: Possibly due to Reglan. Discontinued Reglan. We will also discontinue Lyrica which can cause this to. (12) Hyperphosphatemia Is this a current diagnosis for this admission?: Yes Plan: On sevelamer. Most recent phosphorus level is 5.4. (13) Secondary hyperparathyroidism (of renal origin) Is this a current diagnosis for this admission?: Yes Plan: On calcitriol. We will switch this to IV Hectorol once she is back on outpatient dialysis unit in [facility]. (14) Morbid obesity with BMI of 40.0-44.9, adult Is this a current diagnosis for this admission?: Yes - Notes Notes: Discussed with Dr. Eisenberg. Patient's prognosis is relatively poor considering her s calciphylaxis and ongoing progression and no sign of improvement yet. - Time Time with patient: Greater than 35 minutes
[2018-09-26] MEDS: SODIUM THIOSULFATE IV SCH (10:00)
[2018-09-26] MEDS: NORMAL SALINE IV SCH (10:00)
[2018-09-26] MEDS: EPOETIN ALFA INJ 40000 UNIT/1 ML (RENAL) IV PRN (11:08)
[2018-09-26] MEDS ORDERED: MEROPENEM 1 GM in NORMAL SALINE 50 ML IV SCH (12:00)
[2018-09-26] MEDS: ENOXAPARIN SODIUM INJ 30 MG/0.3 ML DISP.SYRIN SUBCUT SCH (12:46)
[2018-09-26] MEDS: FLUTICASONE/VILANTEROL 200-25 MCG/DOSE IH SCH (13:31)
[2018-09-26] MEDS: CALCITRIOL 0.25 MCG CAPSULE PO SCH (13:31)
[2018-09-26] MEDS: CARVEDILOL 12.5 MG TABLET PO SCH ×2 (13:31→21:32)
--- NOTE | 2018-09-26 15:54 | Progress Note ---
Provider Note Provider Note: ID Consult Note Asked to review chart. Pt not seen or examined. Ms. Nation is a 52 year old woman with PMH/PSH including obesity, ORLIN, DM, HTN, ESRD on hemodialysis and s/p abdominal walld debridement for calciphylaxis at [facility]. She presented on 09/16/18 with drainage and necrotic edges to the abdominal wound. On initial exam she was afebrile; the large abdominal wall wound was tender and noted to have a "soupiness at the base with exudate." She was taken to the OR for excisional debridement, at which time the underlying fat was apprecaited to have pockets of necrosis with exudative film and pockets of pus. Cultures taken on 09/16/18 from showed growth of E coli (resistant to Bactrim, ampicillin, Unasyn; intermediate to cefazolin), corynebacterium species, Anaerococcus species, a beta-lactamase positive Prevotella species. Blood cultures were negative. The patient has remained afebrile. Her WBC count was elevated on admission and has generally remained in the range of 14-16k. IV cefepime was started. On 09/19/18 the patient complained of multiple loose stools, and Stool C difficile PCR was positive. PO vancomycin 250 mg q6h was started. On 09/24 the patient complained of pain at the wound and foul smel emanating from the wound. It was appreciated to have areas of granulation tissue but also large portions that were nonviable appearing. Pt was taken back to the OR on 09/25/18 for further debridement of nonviable necrotic skin/soft tissue infection; purulent drainage was evacuated, per operative note. No additional cultures were obtained. Impression/Recommendations Infected calciphylaxis ulcer - s/p debridement on 09/16 and 09/25 - cultures from 09/16 showed growth of E coli, beta lactamase positive Prevotella, and Peptostreptococcus - Increased leukocytosis in the immemdiate post-operative period can be a reflection of tissue inflammation from surgery itself, and not necessarily a sign of impending sepsis. No further cultures were taken on 09/25 so I do not have the best information to absolutely refute the need for a carbapenem, but the only cultures that were obtained on 09/16 do not support a need for it. - If she is clinically stable to improving tomorrow or the day after, consider switching back to IV cefepime (or ceftazidime) and add PO Flagyl 500 mg BID. C efepime (or ceftazidime) would address the E coli and Peptostreptococcus. Addition of Flagyl would also address the Prevotella, which would not be covered with cefepime alone. Flagyl dosing is typically TID but half-life should support BID, dosing, which has been our practice. C difficile colonization - C difficile PCR is very sensitive, to the point that it detects colonization in addition to disease. It cannot distinguish between the two. To try to avoid increased false positive results due to the low specificity of the test and high sensitivity, judicious selection of patients for testing is recommended, including avoiding testing when diarrhea is otherwise explained by pt getting a laxative in last 24-48h. - It appears unlikely that pt truly has C difficile colitis as the underlying cause of her diarrhea on 09/19: She has an alternative explanation for diarrhea, having been given lactulose on 09/18. She has loose stools on 09/19, which seems to be the expected action of lactulose. Abdomen was noted to be nontender apart from the site of the wound itself. Diarrhea was resolved as of 09/20. - Would discontinue PO vancomycin - Colonization can precede development of true infection. Would give PO Flagyl rather than meropenem or a beta-lactam/beta-lactamase inhibitor to target the anaerobes that grew from her culture on 09/16. Does not need to be treatment dose of Flagyl from C difficile as, at least based on chart review, pt does not appear to have C difficile disease to treat. Can be 500 mg PO BID Flagyl. See above. Rafael Guevara MD [facility] Infectious Diseases pager [phone]
[2018-09-26] MEDS: MEROPENEM 500 MG in NORMAL SALINE 50 ML IV SCH ×2 (16:02→21:32)
[2018-09-26] MEDS: CINACALCET HCL 30 MG TABLET PO SCH (16:02)
[2018-09-26] MEDS: FOLIC ACID/VITAMIN B COMP W-C CAPSULE PO SCH (16:02)
[2018-09-26] MEDS: INSULIN GLARGINE,HUM.REC.ANLOG 1,000 UNIT/10 ML VIAL SUBCUT SCH (21:32)
[2018-09-27] MEDS: HYDRALAZINE HCL 50 MG TABLET PO SCH ×3 (06:00→22:22)
[2018-09-27] MEDS: IPRATROPIUM/ALBUTEROL 0.5-2.5 MG/3 ML AMPUL NEB SCH ×2 (08:41→20:40)
[2018-09-27] MEDS: INSULIN LISPRO 100 UNIT/ML 3 ML VIAL SUBCUT SCH ×4 (08:41→22:23)
[2018-09-27] MEDS: SEVELAMER HCL 800 MG TABLET PO SCH ×3 (08:41→17:38)
[2018-09-27] MEDS: MEROPENEM 500 MG in NORMAL SALINE 50 ML IV SCH (10:39)
[2018-09-27] MEDS: CARVEDILOL 12.5 MG TABLET PO SCH ×2 (10:39→22:23)
[2018-09-27] MEDS: CALCITRIOL 0.25 MCG CAPSULE PO SCH (10:39)
[2018-09-27] MEDS: FLUTICASONE/VILANTEROL 200-25 MCG/DOSE IH SCH (10:40)
[2018-09-27] MEDS: ENOXAPARIN SODIUM INJ 30 MG/0.3 ML DISP.SYRIN SUBCUT SCH (10:41)
[2018-09-27] MEDS ORDERED: BISACODYL 5 MG TABEC PO ONE (12:30)
--- NOTE | 2018-09-27 12:53 | PDOC PROGRESS REPORT ---
Subjective Reason For Visit: ABDOMINAL WALL INFECTION Physical Exam Vital Signs: Temp Pulse Resp BP Pulse Ox 97.2 F 88 18 152/80 H 98 09/27/18 11:33 09/27/18 11:33 09/27/18 11:33 09/27/18 11:33 09/27/18 11:33 Intake & Output 09/26/18 09/27/18 09/28/18 06:59 06:59 06:59 Intake Total 3700 900 562 Output Total 3000 3400 0 Balance 700 -2500 562 Weight 137.7 kg Results Laboratory Results: 09/26/18 05:53 09/26/18 05:53 09/16/18 09/17/18 09/17/18 19:25 20:08 20:08 Creatine Kinase 24 L CK-MB (CK-2) 1.23 Troponin I 0.020 0.017 09/18/18 09/18/18 09/18/18 02:20 02:20 09:00 Creatine Kinase 21 L 26 L CK-MB (CK-2) 1.28 Troponin I 0.018 09/18/18 09:00 Creatine Kinase CK-MB (CK-2) 1.12 Troponin I 0.024 Impressions: Chest X-Ray 09/16/18 19:19 IMPRESSION: 1. No acute pulmonary findings. Assessment & Plan - Diagnosis (1) Calciphylaxis Is this a current diagnosis for this admission?: Yes (2) Infected abdominal wound Is this a current diagnosis for this admission?: Yes - Plan Summary Plan Summary: This is a 52-year-old female with calciphylaxis and a large abdominal wound. She is status post debridement of this wound. There is still some fibrinous slough on the lateral aspect. I will add Santyl ointment to the dressing changes. Will follow wound. Not clean enough for wound VAC yet.
[2018-09-27] MEDS ORDERED: FENTANYL CITRATE INJ/PF 100 MCG/2 ML AMPUL IV PRN (14:02)
[2018-09-27] MEDS: OXYCODONE HCL IR 5 MG TABLET PO PRN ×2 (14:28→22:22)
[2018-09-27] MEDS: COLLAGENASE CLOSTRIDIUM HIST. OINT 30 GM TP SCH ×2 (15:56→22:24)
--- NOTE | 2018-09-27 17:01 | PDOC PROGRESS REPORT ---
Subjective Progress Note for:: 09/26/18 Subjective:: Post dialysis. Resting in bed. Reason For Visit: ABDOMINAL WALL INFECTION Physical Exam Vital Signs: Temp Pulse Resp BP Pulse Ox 97.9 F 74 18 107/67 99 09/26/18 04:00 09/26/18 20:34 09/26/18 20:34 09/26/18 04:00 09/26/18 20:34 Intake & Output 09/25/18 09/26/18 09/27/18 06:59 06:59 06:59 Intake Total 590 3700 900 Output Total 3400 3000 3400 Balance -2810 700 -2500 Weight 140.5 kg General appearance: PRESENT: no acute distress, morbidly obese, other - Still does not actively engage in the encounter. Head exam: PRESENT: atraumatic, normocephalic Respiratory exam: PRESENT: clear to auscultation shira - Anteriorly, symmetrical, unlabored. ABSENT: rales, rhonchi, tachypnea, wheezes Cardiovascular exam: PRESENT: RRR, +S1, +S2, other - Distant heart sounds due to body habitus GI/Abdominal exam: PRESENT: soft, other - Dressing over the lower abdomen. Rectal exam: PRESENT: deferred Extremities exam: PRESENT: pedal edema Neurological exam: PRESENT: oriented to person, oriented to place, oriented to situation. ABSENT: alert, awake - It is hard to tell but she typically is sleeping. It takes aggressive prompting to get her to open her eyes. Psychiatric exam: PRESENT: flat affect. ABSENT: agitated Focused psych exam: ABSENT: restlessness Skin exam: PRESENT: other - Gauze dressing on abdomen Results Laboratory Results: 09/26/18 05:53 09/26/18 05:53 09/26/18 09/26/18 05:53 05:53 WBC 21.1 H RBC 3.06 L Hgb 7.8 L Hct 24.5 L MCV 80 MCH 25.4 L MCHC 31.7 L RDW 19.0 H Plt Count 195 Seg Neutrophils % Not Reportable Lymphocytes % Not Reportable Monocytes % Not Reportable Eosinophils % Not Reportable Basophils % Not Reportable Absolute Neutrophils Not Reportable Absolute Lymphocytes Not Reportable Absolute Monocytes Not Reportable Absolute Eosinophils Not Reportable Absolute Basophils Not Reportable Sodium 134.3 L Potassium 4.8 Chloride 94 L Carbon Dioxide 19 L Anion Gap 21 H BUN 30 H Creatinine 9.08 H Est GFR ( Amer) 6 L Est GFR (Non-Af Amer) 5 L Glucose 182 H Calcium 9.7 Phosphorus 5.4 H 09/16/18 09/17/18 09/17/18 19:25 20:08 20:08 Creatine Kinase 24 L CK-MB (CK-2) 1.23 Troponin I 0.020 0.017 09/18/18 09/18/18 09/18/18 02:20 02:20 09:00 Creatine Kinase 21 L 26 L CK-MB (CK-2) 1.28 Troponin I 0.018 09/18/18 09:00 Creatine Kinase CK-MB (CK-2) 1.12 Troponin I 0.024 Impressions: Chest X-Ray 09/16/18 19:19 IMPRESSION: 1. No acute pulmonary findings. Assessment and Plan - Diagnosis (1) Calciphylaxis Is this a current diagnosis for this admission?: Yes Plan: Currently with VAC dressing in place. Family reports that this is been ongoing issue from early this year. We will continue VAC dressing as an outpatient and follow-up with the surgical clinic. Family reports a foul odor which was noticeable to this provider. It is possible that it is related to the wound drainage however this is in a self-contained vessel in the VAC system. Hygiene could also be contributing. 09/24/2018-surgery saw the patient earlier. The remove the VAC dressing. I did not examine the wound directly but the patient reported that she will need further debridement with surgery tomorrow. 09/25/2018-patient somewhat anxious. Waiting to go to the OR. I believe she will be going at 3:00 this afternoon. Please also see surgery notes. 09/26/2018-patient went to the OR yesterday. There is a large gauze dressing on her abdomen. Per the nurse she is getting saline wet-to-dry dressings. Discussed with Dr. Moran. We will start antibiotic therapy. Currently on meropenem and vancomycin. I have placed consult for infectious diseases. (2) ESRD (end stage renal disease) on dialysis Is this a current diagnosis for this admission?: Yes Plan: Continue hemodialysis as an outpatient. 09/24/2018-the patient is completing her hemodialysis treatment. After discharge she will continue hemodialysis as an outpatient. 09/25/2018-scheduled for hemodialysis tomorrow. 09/26/2018-hemodialysis on Saturday. The peritoneal dialysis catheter was removed by Dr. Soriano. Will check labs on Saturday. (3) Morbid obesity with BMI of 40.0-44.9, adult Is this a current diagnosis for this admission?: Yes Plan: Would benefit from more aggressive dieting and lifestyle modification. 09/24/2018-the patient reports that her appetite is decreased. There is been an order for Glucerna meal trays. According to the patient she is not receiving these. I have reached out to dietary to follow-up to ensure that it is the appropriate supplement and in fact that the patient is receiving them. 09/25/2018-as above (4) CHF (congestive heart failure) Qualifiers: Heart failure type: unspecified Heart failure chronicity: acute Qualified Code(s): I50.9 - Heart failure, unspecified Is this a current diagnosis for this admission?: Yes Plan: Continue current medication regimen as well as regular hemodialysis. Failure is considered to be diastolic. Currently with comfortable breathing. Continue to wean oxygen as tolerated. 09/24/2018-breathing has become much more comfortable. Patient receiving scheduled dialysis. Continue current medication regimen. I have added a cardia c component to her dialysis diet. 09/25/2018-the patient continues in a net negative fluid balance with the inclusion of hemodialysis. Continue current regimen. 09/26/2018-continues overall net negative fluid balance including dialysis. Continue low-salt diet. Stable on current medications. (5) Cirrhosis Is this a current diagnosis for this admission?: Yes Plan: Continue current regimen. AST, ALT and bilirubin currently normal. 09/24/2018-no change in current plan. 09/25/2018-continue conservative plan. 09/26/2018-no change in treatment plan. (6) Diabetes mellitus type 2 in obese Is this a current diagnosis for this admission?: Yes Plan: Continue current insulin regimen. 09/24/2018-very good control with most Accu-Cheks below 150 and remaining are below 200. 09/25/2018-all Accu-Cheks remain below 200. No change in treatment plan. 09/26/2018-occasional Accu-Chek greater than 200. We will continue to monitor and adjust if glucose checks are consistently over 200. (7) Altered mental status Is this a current diagnosis for this admission?: Yes Plan: Resolved. Multiple etiologies including her uremia, pain medications and hypercapnia on admission. 09/25/2018-as above. We will continue to monitor. 09/26/2018-the patient will contribute to the encounters occasionally. When she does it appears that she is at her baseline. (8) C. difficile diarrhea Is this a current diagnosis for this admission?: Yes Plan: C. difficile serology positive 09/24/2018-complete oral vancomycin as ordered. 09/25/2018-continue vancomycin 09/26/2018-vancomycin therapy completed. (9) Hypertension Qualifiers: Hypertension type: essential hypertension Qualified Code(s): I10 - Ess ential (primary) hypertension Is this a current diagnosis for this admission?: Yes Plan: Continue current medication regimen. 09/24/2018-systolic blood pressure still slightly higher than desired. Will review current medication regimen and consider changes. 09/25/2018-continue current regimen for now. Hectic schedule with the OR this afternoon and possible surgery for her parathyroid glands. We will hold off on making acute changes at this time unless clinically warranted. 09/26/2018-reasonable blood pressure control. No changes at this time. - Time Time Spent with patient: 15-24 minutes Medications reviewed and adjusted accordingly: Yes
[2018-09-27] MEDS ORDERED: LACTULOSE SYRUP 20 GM/30 ML UDCUP PO PRN (17:04)
--- NOTE | 2018-09-27 17:12 | PDOC PROGRESS REPORT ---
Subjective Progress Note for:: 09/27/18 Subjective:: I was present for the dressing change. The patient has a gaping wound on her abdomen. The surgical site from the peritoneal dialysis catheter removal appears to be healing well. Reason For Visit: ABDOMINAL WALL INFECTION Physical Exam Vital Signs: Temp Pulse Resp BP Pulse Ox 98.1 F 75 18 131/55 H 100 09/27/18 15:05 09/27/18 15:05 09/27/18 15:05 09/27/18 15:05 09/27/18 15:05 Intake & Output 09/26/18 09/27/18 09/28/18 06:59 06:59 06:59 Intake Total 3700 900 562 Output Total 3000 3400 0 Balance 700 -2500 562 Weight 137.7 kg Results Laboratory Results: 09/26/18 05:53 09/26/18 05:53 09/16/18 09/17/18 09/17/18 19:25 20:08 20:08 Creatine Kinase 24 L CK-MB (CK-2) 1.23 Troponin I 0.020 0.017 09/18/18 09/18/18 09/18/18 02:20 02:20 09:00 Creatine Kinase 21 L 26 L CK-MB (CK-2) 1.28 Troponin I 0.018 09/18/18 09:00 Creatine Kinase CK-MB (CK-2) 1.12 Troponin I 0.024 Impressions: Chest X-Ray 09/16/18 19:19 IMPRESSION: 1. No acute pulmonary findings. Assessment and Plan - Diagnosis (1) Calciphylaxis Is this a current diagnosis for this admission?: Yes Plan: Currently with VAC dressing in place. Family reports that this is been ongoing issue from early this year. We will continue VAC dressing as an outpatient and follow-up with the surgical clinic. Family reports a foul odor which was noticeable to this provider. It is possible that it is related to the wound drainage however this is in a self-contained vessel in the VAC system. Hygiene could also be contributing. 09/24/2018-surgery saw the patient earlier. The remove the VAC dressing. I did not examine the wound directly but the patient reported that she will need further debridement with surgery tomorrow. 09/25/2018-patient somewhat anxious. Waiting to go to the OR. I believe she will be going at 3:00 this afternoon. Please also see surgery notes. 09/26/2018-patient went to the OR yesterday. There is a large gauze dressing on her abdomen. Per the nurse she is getting saline wet-to-dry dressings. Discussed with Dr. Moran. We will start antibiotic therapy. Currently on meropenem and vancomycin. I have placed consult for infectious diseases. 09/27/2018-Per Dr. Guevara I have discontinued the meropenem and initiated Flagyl per her direction. The patient now has a very large wound across the abdomen. Was there for the dressing change. She does have some nonviable adipose tissue but the base of the wound is a pale pink. They are continuing wet-to-dry dressings. (2) ESRD (end stage renal disease) on dialysis Is this a current diagnosis for this admission?: Yes Plan: Continue hemodialysis as an outpatient. 09/24/2018-the patient is completing her hemodialysis treatment. After discharge she will continue hemodialysis as an outpatient. 09/25/2018-scheduled for hemodialysis tomorrow. 09/26/2018-the patient had hemodialysis earlier today. She is scheduled for hemodialysis on Saturday. The peritoneal dialysis catheter was removed by Dr. Soriano. Will check labs on Saturday. 09/27/2018-hemodialysis on Saturday (3) Morbid obesity with BMI of 40.0-44.9, adult Is this a current diagnosis for this admission?: Yes Plan: Would benefit from more aggressive dieting and lifestyle modification. 09/24/2018-the patient reports that her appetite is decreased. There is been an order for Glucerna meal trays. According to the patient she is not receiving these. I have reached out to dietary to follow-up to ensure that it is the appropriate supplement and in fact that the patient is receiving them. 09/25/2018-as above (4) CHF (congestive heart failure) Qualifiers: Heart failure type: unspecified Heart failure chronicity: acute Qualified Code(s): I50.9 - Heart failure, unspecified Is this a current diagnosis for this admission?: Yes Plan: Continue current medication regimen as well as regular hemodialysis. Failure is considered to be diastolic. Currently with comfortable breathing. Continue to wean oxygen as tolerated. 09/24/2018-breathing has become much more comfortable. Patient receiving scheduled dialysis. Continue current medication regimen. I have added a cardiac component to her dialysis diet. 09/25/2018-the patient continues in a net negative fluid balance with the inclusion of hemodialysis. Continue current regimen. 09/26/2018-continues overall net negative fluid balance including dialysis. Continue low-salt diet. Stable on current medications. 09/27/2018-no change in medication regimen. Continue to monitor intake and output. (5) Cirrhosis Is this a current diagnosis for this admission?: Yes Plan: Continue current regimen. AST, ALT and bilirubin currently normal. 09/24/2018-no change in current plan. 09/25/2018-continue conservative plan. 09/26/2018-no change in treatment plan. 09/27/2018-continue current treatment plan. (6) Diabetes mellitus type 2 in obese Is this a current diagnosis for this admission?: Yes Plan: Continue current insulin regimen. 09/24/2018-very good control with most Accu-Cheks below 150 and remaining are below 200. 09/25/2018-all Accu-Cheks remain below 200. No change in treatment plan. 09/26/2018-occasional Accu-Chek greater than 200. We will continue to monitor and adjust if glucose checks are consistently over 200. [id number] are climbing over 200. It could be the stress of the surgery. We will recheck tomorrow and adjust medications if needed. (7) Altered mental status Is this a current diagnosis for this admission?: Yes Plan: Resolved. Multiple etiologies including her uremia, pain medications and hypercapnia on admission. 09/25/2018-as above. We will continue to monitor. 09/26/2018-the patient will contribute to the encounters occasionally. When she does it appears that she is at her baseline. A 1019-patient certainly appears to be at baseline. Her mother is present today. Her mother reports that patient is weak but did not comment on mental status. That is why I believe she is at her baseline. (8) C. difficile diarrhea Is this a current diagnosis for this admission?: Yes Plan: C. difficile serology positive 09/24/2018-complete oral vancomycin as ordered. 09/25/2018-continue vancomycin 09/26/2018-vancomycin therapy completed. 09/27/2018-after reviewing Dr. Guevara's note the vancomycin was in fact discontinued. The Flagyl is for the abdominal wound. (9) Hypertension Qualifiers: Hypertension type: essential hypertension Qualified Code(s): I10 - Essential (primary) hypertension Is this a current diagnosis for this admission?: Yes Plan: Continue current medication regimen. 09/24/2018-systolic blood pressure still slightly higher than desired. Will review current medication regimen and consider changes. 09/25/2018-continue current regimen for now. Hectic schedule with the OR this afternoon and possible surgery for her parathyroid glands. We will hold off on making acute changes at this time unless clinically warranted. 09/26/2018-reasonable blood pressure control. No changes at this time. 09/27/2018-we will continue the current medication regimen as it has been fairly effective. (10) Constipation Qualifiers: Constipation type: unspecified constipation type Qualified Code(s): K59.00 - Constipation, unspecified Is this a current diagnosis for this admission?: Yes Plan: 09/27/2018-the patient was treated for C. difficile but has not had a bowel movement in 3 days. She was given 10 mg of Flagyl p.o. today. I will also order as needed lactulose since this has worked in the past. - Time Time Spent with patient: 15-24 minutes Medications reviewed and adjusted accordingly: Yes
[2018-09-27] MEDS: FOLIC ACID/VITAMIN B COMP W-C CAPSULE PO SCH (17:38)
[2018-09-27] MEDS: CINACALCET HCL 30 MG TABLET PO SCH (17:38)
[2018-09-27] MEDS: METRONIDAZOLE 500 MG TABLET PO SCH (22:22)
[2018-09-27] MEDS: INSULIN GLARGINE,HUM.REC.ANLOG 1,000 UNIT/10 ML VIAL SUBCUT SCH (22:24)
[2018-09-28] MEDS: OXYCODONE HCL IR 5 MG TABLET PO PRN ×3 (05:54→20:19)
[2018-09-28] MEDS: HYDRALAZINE HCL 50 MG TABLET PO SCH ×3 (05:54→21:34)
[2018-09-28] MEDS: INSULIN LISPRO 100 UNIT/ML 3 ML VIAL SUBCUT SCH ×4 (08:27→21:34)
[2018-09-28] MEDS: SEVELAMER HCL 800 MG TABLET PO SCH ×3 (08:27→16:48)
--- NOTE | 2018-09-28 09:03 | PDOC PROGRESS REPORT ---
Subjective Progress Note for:: 09/28/18 Subjective:: feels the same Reason For Visit: ABDOMINAL WALL INFECTION Physical Exam Vital Signs: Temp Pulse Resp BP Pulse Ox 98.2 F 77 18 137/59 H 94 09/28/18 07:48 09/28/18 07:48 09/28/18 07:48 09/28/18 07:48 09/28/18 07:48 Intake & Output 09/27/18 09/28/18 09/29/18 06:59 06:59 06:59 Intake Total 900 440 Output Total 3400 1 Balance -2500 439 Weight 137.7 kg 139.7 kg General appearance: PRESENT: no acute distress Head exam: PRESENT: normocephalic Eye exam: PRESENT: EOMI Ear exam: PRESENT: normal external ear exam Mouth exam: PRESENT: moist Teeth exam: PRESENT: poor dentation Neck exam: PRESENT: full ROM Respiratory exam: PRESENT: clear to auscultation shira Cardiovascular exam: PRESENT: RRR GI/Abdominal exam: PRESENT: other - rt sided abd wound iwth some granulation tissue santile started yesterday still with some necrotic fat around edges. Rectal exam: PRESENT: deferred Musculoskeletal exam: PRESENT: full ROM Neurological exam: PRESENT: alert, awake, oriented to person Psychiatric exam: PRESENT: depressed Results Laboratory Results: 09/26/18 05:53 09/26/18 05:53 09/16/18 09/17/18 09/17/18 19:25 20:08 20:08 Creatine Kinase 24 L CK-MB (CK-2) 1.23 Troponin I 0.020 0.017 09/18/18 09/18/18 09/18/18 02:20 02:20 09:00 Creatine Kinase 21 L 26 L CK-MB (CK-2) 1.28 Troponin I 0.018 09/18/18 09:00 Creatine Kinase CK-MB (CK-2) 1.12 Troponin I 0.024 Impressions: Chest X-Ray 09/16/18 19:19 IMPRESSION: 1. No acute pulmonary findings. Assessment & Plan - Diagnosis (1) Calciphylaxis Is this a current diagnosis for this admission?: Yes - Plan Summary Plan Summary: abdominal wound s/p debridement cont wet to dry with santile
[2018-09-28] MEDS: IPRATROPIUM/ALBUTEROL 0.5-2.5 MG/3 ML AMPUL NEB SCH ×2 (09:05→20:37)
[2018-09-28] MEDS: FLUTICASONE/VILANTEROL 200-25 MCG/DOSE IH SCH (09:26)
[2018-09-28] MEDS: CARVEDILOL 12.5 MG TABLET PO SCH ×2 (09:26→21:34)
[2018-09-28] MEDS: CALCITRIOL 0.25 MCG CAPSULE PO SCH (09:26)
[2018-09-28] MEDS: METRONIDAZOLE 500 MG TABLET PO SCH ×2 (09:26→21:34)
[2018-09-28] MEDS: ENOXAPARIN SODIUM INJ 30 MG/0.3 ML DISP.SYRIN SUBCUT SCH (09:26)
[2018-09-28] MEDS: COLLAGENASE CLOSTRIDIUM HIST. OINT 30 GM TP SCH ×2 (13:41→21:39)
--- NOTE | 2018-09-28 16:29 | PDOC PROGRESS REPORT ---
Subjective Progress Note for:: 09/28/18 Subjective:: Patient actually wide awake. Resting in bed. Awaiting abdominal wound dressing change. Reason For Visit: ABDOMINAL WALL INFECTION Physical Exam Vital Signs: Temp Pulse Resp BP Pulse Ox 97.2 F 81 16 149/68 H 96 09/28/18 12:30 09/28/18 12:30 09/28/18 12:30 09/28/18 12:30 09/28/18 12:30 Intake & Output 09/27/18 09/28/18 09/29/18 06:59 06:59 06:59 Intake Total 900 440 Output Total 3400 1 Balance -2500 439 Weight 137.7 kg 139.7 kg General appearance: PRESENT: no acute distress, cooperative, morbidly obese Head exam: PRESENT: atraumatic, normocephalic Mouth exam: PRESENT: moist, tongue midline Teeth exam: PRESENT: poor dentation Respiratory exam: PRESENT: clear to auscultation shira - Anteriorly, symmetrical, unlabored, other - Distant breath sounds due to body habitus. ABSENT: rales, rhonchi, tachypnea, wheezes Cardiovascular exam: PRESENT: RRR, +S1, +S2, other - Distant heart sounds due to body habitus GI/Abdominal exam: PRESENT: diminished bowel sounds - Most likely due to body habitus, distended - Pendulous abdomen, soft, other - Large gauze dressing across lower abdomen from the calciphylaxis wound surgery. Sutures in the incision from left lower quadrant peritoneal dialysis catheter removal. Incision is clean and dry. Extremities exam: ABSENT: pedal edema Musculoskeletal exam: PRESENT: ambulatory, other - Redundant adipose tissue on the thighs. Neurological exam: PRESENT: alert, awake, oriented to person, oriented to place, oriented to situation, other - Actually stated that she is tired of having surgeries. Psychiatric exam: PRESENT: flat affect. ABSENT: agitated, anxious Focused psych exam: ABSENT: delusional, restlessness Results Laboratory Results: 09/26/18 05:53 09/26/18 05:53 09/16/18 09/17/18 09/17/18 19:25 20:08 20:08 Creatine Kinase 24 L CK-MB (CK-2) 1.23 Troponin I 0.020 0.017 09/18/18 09/18/18 09/18/18 02:20 02:20 09:00 Creatine Kinase 21 L 26 L CK-MB (CK-2) 1.28 Troponin I 0.018 09/18/18 09:00 Creatine Kinase CK-MB (CK-2) 1.12 Troponin I 0.024 Impressions: Chest X-Ray 09/16/18 19:19 IMPRESSION: 1. No acute pulmonary findings. Assessment and Plan - Diagnosis (1) Calciphylaxis Is this a current diagnosis for this admission?: Yes Plan: Currently with VAC dressing in place. Family reports that this is been ongoing issue from early this year. We will continue VAC dressing as an outpatient and follow-up with the surgical clinic. Family reports a foul odor which was noticeable to this provider. It is possible that it is related to the wound drainage however this is in a self-contained vessel in the VAC system. Hygiene could also be contributing. 09/24/2018-surgery saw the patient earlier. The remove the VAC dressing. I did not examine the wound directly but the patient reported that she will need further debridement with surgery tomorrow. 09/25/2018-patient somewhat anxious. Waiting to go to the OR. I believe she will be going at 3:00 this afternoon. Please also see surgery notes. 09/26/2018-patient went to the OR yesterday. There is a large gauze dressing on her abdomen. Per the nurse she is getting saline wet-to-dry dressings. Discussed with Dr. Moran. We will start antibiotic therapy. Currently on neo openem and vancomycin. I have placed consult for infectious diseases. 09/27/2018-Per Dr. Guevara I have discontinued the meropenem and initiated Flagyl per her direction. The patient now has a very large wound across the abdomen. Was there for the dressing change. She does have some nonviable adipose tissue but the base of the wound is a pale pink. They are continuing wet-to-dry dressings. 09/28/2018-I did observe the wound at the dressing change yesterday. It is a very large wound. It takes a very dedicated patient to comply with the regimen to heal this wound. Top of that calciphylaxis wounds are notoriously slow to heal if they heal at all. Occasionally parathyroidectomy is helpful. Because of the need for close monitoring of the wound and complex wound care the patient would be best served at a facility as opposed to going home with home health. Her overall prognosis is poor. (2) ESRD (end stage renal disease) on dialysis Is this a current diagnosis for this admission?: Yes Plan: Continue hemodialysis as an outpatient. 09/24/2018-the patient is completing her hemodialysis treatment. After discharge she will continue hemodialysis as an outpatient. 09/25/2018-scheduled for hemodialysis tomorrow. 09/26/2018-the patient had hemodialysis earlier today. She is scheduled for hemodialysis on Saturday. The peritoneal dialysis catheter was removed by Dr. Soriano. Will check labs on Saturday. 09/27/2018-hemodialysis on Saturday09/28/2018-the patient is due for hemodialysis tomorrow. I have ordered blood work for the morning for baseline prior to dialysis. The peritoneal dialysis catheter has been removed and the incision is healing nicely. (3) Morbid obesity with BMI of 40.0-44.9, adult Is this a current diagnosis for this admission?: Yes Plan: Would benefit from more aggressive dieting and lifestyle modification. 09/24/2018-the patient reports that her appetite is decreased. There is been an order for Glucerna meal trays. According to the patient she is not receiving these. I have reached out to dietary to follow-up to ensure that it is the appropriate supplement and in fact that the patient is receiving them. 09/25/2018-as above 09/28/2018-with her morbid obesity it will make healing the large abdominal wound that much more difficult. (4) Cirrhosis Is this a current diagnosis for this admission?: Yes Plan: Continue current regimen. AST, ALT and bilirubin currently normal. 09/24/2018-no change in current plan. 09/25/2018-continue conservative plan. 09/26/2018-no change in treatment plan. 09/27/2018-continue current treatment plan. 09/28/2018-continue conservative plan (5) CHF (congestive heart failure) Qualifiers: Heart failure type: unspecified Heart failure chronicity: acute Qualified Code(s): I50.9 - Heart failure, unspecified Is this a current diagnosis for this admission?: Yes Plan: Continue current medication regimen as well as regular hemodialysis. Failure is considered to be diastolic. Currently with comfortable breathing. Continue to wean oxygen as tolerated. 09/24/2018-breathing has become much more comfortable. Patient receiving scheduled dialysis. Continue current medication regimen. I have added a cardiac component to her dialysis diet. 09/25/2018-the patient continues in a net negative fluid balance with the inclusion of hemodialysis. Continue current regimen. 09/26/2018-continues overall net negative fluid balance including dialysis. Continue low-salt diet. Stable on current medications. 09/27/2018-no change in medication regimen. Continue to monitor intake and output. 09/28/2018-patient is oliguric. Fluid management through dialysis. (6) Diabetes mellitus type 2 in obese Is this a current diagnosis for this admission?: Yes Plan: Continue current insulin regimen. 09/24/2018-very good control with most Accu-Cheks below 150 and remaining are below 200. 09/25/2018-all Accu-Cheks remain below 200. No change in treatment plan. 09/26/2018-occasional Accu-Chek greater than 200. We will continue to monitor and adjust if glucose checks are consistently over 200. [id number] are climbing over 200. It could be the stress of the surgery. We will recheck tomorrow and adjust medications if needed. 09/28/2018-the Accu-Cheks from earlier today were both under 200. We will continue to monitor. Now that she is having surgeries she will be getting the full dose of her insulin and that should get her back to good control. (7) Altered mental status Is this a current diagnosis for this admission?: Yes Plan: Resolved. Multiple etiologies including her uremia, pain medications and hypercapnia on admission. 09/25/2018-as above. We will continue to monitor. 09/26/2018-the patient will contribute to the encounters occasionally. When she does it appears that she is at her baseline. 09/27/2018 -patient certainly appears to be at baseline. Her mother is present today. Her mother reports that patient is weak but did not comment on mental status. That is why I believe she is at her baseline. 09/28/2018-patient is at her baseline. Continue to monitor. She does sleep a lot during the day. As noted before her mother states that at home her day and night are reversed. (8) C. difficile diarrhea Is this a current diagnosis for this admission?: Yes Plan: C. difficile serology positive 09/24/2018-complete oral vancomycin as ordered. 09/25/2018-continue vancomycin 09/26/2018-vancomycin therapy completed. 09/27/2018-after reviewing Dr. Guevara's note the vancomycin was in fact discontinued. The Flagyl is for the abdominal wound. 09/28/2018-consider discontinuing contact precautions. The patient is not having diarrhea and so the presence of C. difficile is very unlikely. (9) Hypertension Qualifiers: Hypertension type: essential hypertension Qualified Code(s): I10 - Essential (primary) hypertension Is this a current diagnosis for this admission?: Yes Plan: Continue current medication regimen. 09/24/2018-systolic blood pressure still slightly higher than desired. Will review current medication regimen and consider changes. 09/25/2018-continue current regimen for now. Hectic schedule with the OR this afternoon and possible surgery for her parathyroid glands. We will hold off on making acute changes at this time unless clinically warranted. 09/26/2018-reasonable blood pressure control. No changes at this time. 09/27/2018-we will continue the current medication regimen as it has been fairly effective. 09/28/2018-continue current regimen as blood pressures appear to be well controlled. (10) Constipation Qualifiers: Constipation type: unspecified constipation type Qualified Code(s): K59.00 - Constipation, unspecified Is this a current diagnosis for this admission?: Yes Plan: 09/27/2018-the patient was treated for C. difficile but has not had a bowel movement in 3 days. She was given 10 mg of Dulcolax p.o. today. I will also order as needed lactulose since this has worked in the past. 09/28/2018-the patient has lactulose available as needed. This is safe to use in renal patients. Still with no bowel movement. Will administer additional Dulcolax. - Time Time Spent with patient: Less than 15 minutes Medications reviewed and adjusted accordingly: Yes
[2018-09-28] MEDS ORDERED: BISACODYL 10 MG SUPP.RECT PR PRN (16:30)
[2018-09-28] MEDS: FOLIC ACID/VITAMIN B COMP W-C CAPSULE PO SCH (16:48)
[2018-09-28] MEDS: CINACALCET HCL 30 MG TABLET PO SCH (16:48)
[2018-09-28] MEDS: INSULIN GLARGINE,HUM.REC.ANLOG 1,000 UNIT/10 ML VIAL SUBCUT SCH (21:53)
[2018-09-29 04:44] LABS: ABSOLUTE BASOPHILS # (AUTO) 0.2 10^3/uL (0.0-0.2); ABSOLUTE EOSINOPHILS # (AUTO) 0.2 10^3/uL (0.0-0.6); ABSOLUTE LYMPHOCYTES (AUTO) 1.6 10^3/uL (0.5-4.7); ABSOLUTE NEUT (AUTO) 8.5 10^3/uL (1.7-8.2); BASOPHILS % (AUTO) 1.6 % (0-2); EOSINOPHILS % (AUTO) 1.5 % (0-6); HEMATOCRIT 22.5 % (36.0-47.0); LYMPHOCYTES % (AUTO) 13.6 % (13-45); MEAN CORPUSCULAR HEMOGLOBIN 25.3 pg (27.0-33.4); MEAN CORPUSCULAR HGB CONC 31.8 g/dL (32.0-36.0); MEAN CORPUSCULAR VOLUME 80 fl (80-97); PLATELET COUNT 151 10^3/uL (150-450); RED BLOOD COUNT 2.83 10^6/uL (3.72-5.28); RED CELL DISTRIBUTION WIDTH 18.7 % (11.5-14.0); SEGMENTED NEUTROPHILS % (AUTO) 74.3 % (42-78); TOTAL CELLS COUNTED % (AUTO) 100 %; WHITE BLOOD COUNT 11.5 10^3/uL (4.0-10.5)
[2018-09-29 04:48] LABS: HEMOGLOBIN 7.2 g/dL (12.0-15.5)
[2018-09-29] MEDS ORDERED: HEPARIN SOD (PORCINE) 1,000 UNIT/ML 10 ML VIAL IV PRN (05:00)
[2018-09-29] MEDS ORDERED: NORMAL SALINE 1000 ML 1,000 ML IV PRN (05:00)
[2018-09-29] MEDS ORDERED: EPOETIN ALFA INJ 40000 UNIT/1 ML (RENAL) IV PRN (05:00)
[2018-09-29] MEDS: OXYCODONE HCL IR 5 MG TABLET PO PRN ×3 (05:01→22:18)
[2018-09-29] MEDS: HYDRALAZINE HCL 50 MG TABLET PO SCH ×3 (05:01→22:19)
[2018-09-29 05:15] LABS: ALBUMIN 2.3 g/dL (3.5-5.0); ANION GAP 18 (5-19); BLOOD UREA NITROGEN 42 mg/dL (7-20); CALCIUM 9.6 mg/dL (8.4-10.2); CARBON DIOXIDE 25 mmol/L (22-30); CHLORIDE 93 mmol/L (98-107); GLUCOSE 164 mg/dL (75-110); PHOSPHORUS 4.6 mg/dL (2.5-4.5)
[2018-09-29] MEDS ORDERED: EPOETIN ALFA EPBX IV PRN (07:16)
[2018-09-29] MEDS ORDERED: DISPOSABLE IV PRN (07:16)
[2018-09-29] MEDS: INSULIN LISPRO 100 UNIT/ML 3 ML VIAL SUBCUT SCH ×4 (08:06→22:19)
[2018-09-29] MEDS: SEVELAMER HCL 800 MG TABLET PO SCH ×3 (08:07→17:58)
[2018-09-29] MEDS: IPRATROPIUM/ALBUTEROL 0.5-2.5 MG/3 ML AMPUL NEB SCH ×2 (08:52→20:35)
[2018-09-29] MEDS: SODIUM THIOSULFATE IV SCH (09:44)
[2018-09-29] MEDS: NORMAL SALINE IV SCH (09:44)
[2018-09-29] MEDS ORDERED: EPOETIN ALFA-EPBX 40,000 UNIT/ML VIAL (RENAL) IV PRN (10:00)
--- NOTE | 2018-09-29 10:02 | PDOC PROGRESS REPORT ---
Subjective Progress Note for:: 09/29/18 Reason For Visit: ABDOMINAL WALL INFECTION Subsequent hospital cares patient examined while on hemodialysis Physical Exam Vital Signs: Temp Pulse Resp BP Pulse Ox 98.1 F 69 18 128/62 H 98 09/29/18 07:27 09/29/18 08:58 09/29/18 08:58 09/29/18 07:27 09/29/18 08:58 Intake & Output 09/28/18 09/29/18 09/30/18 06:59 06:59 06:59 Intake Total 440 120 Output Total 1 1 Balance 439 119 Weight 139.7 kg 140.2 kg General appearance: PRESENT: other - Patient very sleepy GI/Abdominal exam: PRESENT: other - Dressing removed part way, exposing roberts and base of abdominal wound. There is some granulation tissue; there are some s plotchy is on wound sidewall with fibrinous debris. No foul smell or visible, liquid drainage Results Laboratory Results: 09/29/18 04:29 09/29/18 04:29 09/29/18 09/29/18 04:29 04:29 WBC 11.5 H RBC 2.83 L Hgb 7.2 L Hct 22.5 L MCV 80 MCH 25.3 L MCHC 31.8 L RDW 18.7 H Plt Count 151 Seg Neutrophils % 74.3 Lymphocytes % 13.6 Monocytes % 9.0 Eosinophils % 1.5 Basophils % 1.6 Absolute Neutrophils 8.5 H Absolute Lymphocytes 1.6 Absolute Monocytes 1.0 Absolute Eosinophils 0.2 Absolute Basophils 0.2 Sodium 136.3 L Potassium 4.0 Chloride 93 L Carbon Dioxide 25 Anion Gap 18 BUN 42 H Creatinine 9.92 H Est GFR ( Amer) 5 L Est GFR (Non-Af Amer) 4 L Glucose 164 H Calcium 9.6 Phosphorus 4.6 H Magnesium 2.3 Albumin 2.3 L 09/16/18 09/17/18 09/17/18 19:25 20:08 20:08 Creatine Kinase 24 L CK-MB (CK-2) 1.23 Troponin I 0.020 0.017 09/18/18 09/18/18 09/18/18 02:20 02:20 09:00 Creatine Kinase 21 L 26 L CK-MB (CK-2) 1.28 Troponin I 0.018 09/18/18 09:00 Creatine Kinase CK-MB (CK-2) 1.12 Troponin I 0.024 Impressions: Chest X-Ray 09/16/18 19:19 IMPRESSION: 1. No acute pulmonary findings. Assessment & Plan - Diagnosis (1) Abdominal wall abscess Is this a current diagnosis for this admission?: Yes Plan: Impression: Large abdominal wall wound showing incremental signs of improvement Recommendations: 1. Continue current local wound care with regular dressing changes; would refrain from using VAC as this may be drying wound out. 2. Continue intravenous antibiotic therapy. (2) C. difficile diarrhea Is this a current diagnosis for this admission?: Yes (3) Calciphylaxis Is this a current diagnosis for this admission?: Yes (4) ESRD (end stage renal disease) on dialysis Is this a current diagnosis for this admission?: Yes
[2018-09-29] MEDS: ENOXAPARIN SODIUM INJ 30 MG/0.3 ML DISP.SYRIN SUBCUT SCH (11:24)
[2018-09-29] MEDS: CARVEDILOL 12.5 MG TABLET PO SCH ×2 (11:27→22:18)
[2018-09-29] MEDS: METRONIDAZOLE 500 MG TABLET PO SCH ×2 (11:27→22:18)
[2018-09-29] MEDS: CALCITRIOL 0.25 MCG CAPSULE PO SCH (11:27)
[2018-09-29] MEDS: FLUTICASONE/VILANTEROL 200-25 MCG/DOSE IH SCH (11:27)
[2018-09-29] MEDS: COLLAGENASE CLOSTRIDIUM HIST. OINT 30 GM TP SCH ×2 (14:01→22:20)
--- NOTE | 2018-09-29 16:10 | PDOC PROGRESS REPORT ---
Subjective Progress Note for:: 09/29/18 Reason For Visit: Patient seen today on dialysis. She is undergoing dialysis without any issues. Vital signs are stable. She denies any history of fever or chills. She generally feels better and the pain seems to be better controlled. She is wondering whether she could go home soon. Appetite is fair. No history of nausea vomiting. Labs and medications were reviewed. Dialysis orders were reviewed with the treating dialysis nurse. Reviewed surgical notes that shows that there is some worsening and needs debridement in the OR soon. Note that she is only on Flagyl even though she had been growing polymicrobial infection on wound culture earlier. Apparently hospitalist I discussed this case with ID.Had a history of C. difficile diarrhea which seems to have resolved. White count is high at 11 today and is improving from the 21 as of yesterday. Physical Exam Vital Signs: Temp Pulse Resp BP Pulse Ox 98.1 F 73 17 121/57 L 97 09/29/18 11:24 09/29/18 14:00 09/29/18 11:24 09/29/18 11:24 09/29/18 11:24 Intake & Output 09/28/18 09/29/18 09/30/18 06:59 06:59 06:59 Intake Total 440 120 472 Output Total 1 1 3000 Balance 439 119 -2528 Weight 139.7 kg 140.2 kg General appearance: PRESENT: no acute distress Respiratory exam: PRESENT: clear to auscultation shira. ABSENT: crackles Cardiovascular exam: PRESENT: +S1, +S2 GI/Abdominal exam: PRESENT: normal bowel sounds, soft. ABSENT: organomegaly, tenderness Extremities exam: PRESENT: pedal edema Neurological exam: PRESENT: alert, awake, oriented to person, oriented to place, oriented to time Psychiatric exam: PRESENT: appropriate affect Results Laboratory Results: 09/29/18 04:29 09/29/18 04:29 09/29/18 09/29/18 04:29 04:29 WBC 11.5 H RBC 2.83 L Hgb 7.2 L Hct 22.5 L MCV 80 MCH 25.3 L MCHC 31.8 L RDW 18.7 H Plt Count 151 Seg Neutrophils % 74.3 Lymphocytes % 13.6 Monocytes % 9.0 Eosinophils % 1.5 Basophils % 1.6 Absolute Neutrophils 8.5 H Absolute Lymphocytes 1.6 Absolute Monocytes 1.0 Absolute Eosinophils 0.2 Absolute Basophils 0.2 Sodium 136.3 L Potassium 4.0 Chloride 93 L Carbon Dioxide 25 Anion Gap 18 BUN 42 H Creatinine 9.92 H Est GFR ( Amer) 5 L Est GFR (Non-Af Amer) 4 L Glucose 164 H Calcium 9.6 Phosphorus 4.6 H Magnesium 2.3 Albumin 2.3 L 09/16/18 09/17/18 09/17/18 19:25 20:08 20:08 Creatine Kinase 24 L CK-MB (CK-2) 1.23 Troponin I 0.020 0.017 09/18/18 09/18/18 09/18/18 02:20 02:20 09:00 Creatine Kinase 21 L 26 L CK-MB (CK-2) 1.28 Troponin I 0.018 09/18/18 09:00 Creatine Kinase CK-MB (CK-2) 1.12 Troponin I 0.024 Impressions: Chest X-Ray 09/16/18 19:19 IMPRESSION: 1. No acute pulmonary findings. Assessment & Plan - Diagnosis (1) Calciphylaxis Is this a current diagnosis for this admission?: Yes Plan: Patient has been begun on sodium thiosulfate postdialysis and will see how she responds to this in the long run. She is also on phosphate binders and calcimimetics. (2) ESRD (end stage renal disease) on dialysis Is this a current diagnosis for this admission?: Yes Plan: Patient currently undergoing dialysis. Vital signs are stable. Dialysis is being supervised to ensure safe and smooth procedure. Plan to remove 2 to 3 L as tolerated. Dialysis orders were reviewed with the treating dialysis nurse. Continue on sodium thiosulfate postdialysis. (3) Infected abdominal wound Is this a current diagnosis for this admission?: Yes Plan: Already has had a couple of debridements and might need more. Antibiotics being managed by hospitalist with the help of ID. (4) Morbid obesity with BMI of 40.0-44.9, adult Is this a current diagnosis for this admission?: Yes Plan: Status quo. (5) Abdominal pain Qualifiers: Abdominal location: right lower quadrant Qualified Code(s): R10.31 - Right lower quadrant pain Is this a current diagnosis for this admission?: Yes Plan: Better on current pain pain management. (6) Abdominal wall mass of right lower quadrant Is this a current diagnosis for this admission?: Yes Plan: Secondary to calciphylaxis. Open wound with sloughing and early gangrene which was debrided in the OR on current admission. (7) Anemia in chronic kidney disease (CKD) Qualifiers: Chronic kidney disease stage: unspecified stage Qualified Code(s): N18.9 - Chronic kidney disease, unspecified; D63.1 - Anemia in chronic kidney disease Is this a current diagnosis for this admission?: Yes Plan: Adjust erythropoietin. (8) Diabetes mellitus type 2 in obese Is this a current diagnosis for this admission?: Yes Plan: Advised tight control. (9) Hypertension Qualifiers: Hypertension type: essential hypertension Qualified Code(s): I10 - Essential (primary) hypertension Is this a current diagnosis for this admission?: Yes Plan: Controlled. Some variation to pain issues.
[2018-09-29] MEDS: CINACALCET HCL 30 MG TABLET PO SCH (17:58)
[2018-09-29] MEDS: CEFEPIME HCL 2 GM in DEXTROSE 5%-WATER 50 ML IV SCH (17:58)
[2018-09-29] MEDS: FOLIC ACID/VITAMIN B COMP W-C CAPSULE PO SCH (17:58)
--- NOTE | 2018-09-29 22:15 | PDOC PROGRESS REPORT ---
Subjective Progress Note for:: 09/29/18 Subjective:: The patient is resting in bed awaiting her dressing change. Her mother is at the bedside. She does not appear to be in any discomfort. Reason For Visit: ABDOMINAL WALL INFECTION Physical Exam Vital Signs: Temp Pulse Resp BP Pulse Ox 97.5 F 85 16 119/81 94 09/29/18 19:00 09/29/18 20:35 09/29/18 20:35 09/29/18 19:00 09/29/18 20:35 Intake & Output 09/28/18 09/29/18 09/30/18 06:59 06:59 06:59 Intake Total 440 120 694 Output Total 1 1 3000 Balance 439 119 -2306 Weight 139.7 kg 140.2 kg General appearance: PRESENT: no acute distress, cooperative, morbidly obese Head exam: PRESENT: atraumatic, normocephalic Ear exam: PRESENT: normal external ear exam Teeth exam: PRESENT: poor dentation Respiratory exam: PRESENT: clear to auscultation shira, symmetrical, unlabored. ABSENT: rales, rhonchi, tachypnea, wheezes Cardiovascular exam: PRESENT: RRR, +S1, +S2 GI/Abdominal exam: PRESENT: diminished bowel sounds, distended - Pendulous abdomen, soft, tenderness - Around the wound Rectal exam: PRESENT: deferred Extremities exam: PRESENT: pedal edema Neurological exam: PRESENT: alert, awake, oriented to person, oriented to place, oriented to situation Psychiatric exam: PRESENT: flat affect. ABSENT: agitated, anxious Focused psych exam: ABSENT: delusional, restlessness Results Laboratory Results: 09/29/18 04:29 09/29/18 04:29 09/29/18 09/29/18 04:29 04:29 WBC 11.5 H RBC 2.83 L Hgb 7.2 L Hct 22.5 L MCV 80 MCH 25.3 L MCHC 31.8 L RDW 18.7 H Plt Count 151 Seg Neutrophils % 74.3 Lymphocytes % 13.6 Monocytes % 9.0 Eosinophils % 1.5 Basophils % 1.6 Absolute Neutrophils 8.5 H Absolute Lymphocytes 1.6 Absolute Monocytes 1.0 Absolute Eosinophils 0.2 Absolute Basophils 0.2 Sodium 136.3 L Potassium 4.0 Chloride 93 L Carbon Dioxide 25 Anion Gap 18 BUN 42 H Creatinine 9.92 H Est GFR ( Amer) 5 L Est GFR (Non-Af Amer) 4 L Glucose 164 H Calcium 9.6 Phosphorus 4.6 H Magnesium 2.3 Albumin 2.3 L 09/16/18 09/17/18 09/17/18 19:25 20:08 20:08 Creatine Kinase 24 L CK-MB (CK-2) 1.23 Troponin I 0.020 0.017 09/18/18 09/18/18 09/18/18 02:20 02:20 09:00 Creatine Kinase 21 L 26 L CK-MB (CK-2) 1.28 Troponin I 0.018 09/18/18 09:00 Creatine Kinase CK-MB (CK-2) 1.12 Troponin I 0.024 Impressions: Chest X-Ray 09/16/18 19:19 IMPRESSION: 1. No acute pulmonary findings. Assessment and Plan - Diagnosis (1) Calciphylaxis Is this a current diagnosis for this admission?: Yes Plan: Currently with VAC dressing in place. Family reports that this is been ongoing issue from early this year. We will continue VAC dressing as an outpatient and follow-up with the surgical clinic. Family reports a foul odor which was noticeable to this provider. It is possible that it is related to the wound drainage however this is in a self-contained vessel in the VAC system. Hygiene could also be contributing. 09/24/2018-surgery saw the patient earlier. The remove the VAC dressing. I did not examine the wound directly but the patient reported that she will need further debridement with surgery tomorrow. 09/25/2018-patient somewhat anxious. Waiting to go to the OR. I believe she will be going at 3:00 this afternoon. Please also see surgery notes. 09/26/2018-patient went to the OR yesterday. There is a large gauze dressing on her abdomen. Per the nurse she is getting saline wet-to-dry dressings. Discussed with Dr. Moran. We will start antibiotic therapy. Currently on meropenem and vancomycin. I have placed consult for infectious diseases. 09/27/2018-Per Dr. Guevara I have discontinued the meropenem and initiated Flagyl per her direction. The patient now has a very large wound across the abdomen. Was there for the dressing change. She does have some nonviable adipose tissue but the base of the wound is a pale pink. They are continuing wet-to-dry dressings. 09/28/2018-I did observe the wound at the dressing change yesterday. It is a very large wound. It takes a very dedicated patient to comply with the regimen to heal this wound. Top of that calciphylaxis wounds are notoriously slow to heal if they heal at all. Occasionally parathyroidectomy is helpful. Because of the need for close monitoring of the wound and complex wound care the patient would be best served at a facility as opposed to going home with home health. Her overall prognosis is poor. 09/29/2018-continue saline wet-to-dry dressings. Will defer decision regarding vacuum-assisted therapy to the surgeons. Continue Santyl in the wound bed. Still on Flagyl and cefepime for antibiotic coverage of the wound bed. (2) ESRD (end stage renal disease) on dialysis Is this a current diagnosis for this admission?: Yes Plan: Continue hemodialysis as an outpatient. 09/24/2018-the patient is completing her hemodialysis treatment. After discharge she will continue hemodialysis as an outpatient. 09/25/2018-scheduled for hemodialysis tomorrow. 09/26/2018-the patient had hemodialysis earlier today. She is scheduled for hemodialysis on Saturday. The peritoneal dialysis catheter was removed by Dr. Soriano. Will check labs on Saturday. 09/27/2018-hemodialysis on Saturday09/28/2018-the patient is due for hemodialysis tomorrow. I have ordered blood work for the morning for baseline prior to dialysis. The peritoneal dialysis catheter has been removed and the incision is healing nicely. 09/29/2018-tolerated hemodialysis this morning without difficulty. (3) Morbid obesity with BMI of 40.0-44.9, adult Is this a current diagnosis for this admission?: Yes Plan: Would benefit from more aggressive dieting and lifestyle modification. 09/24/2018-the patient reports that her appetite is decreased. There is been an order for Glucerna meal trays. According to the patient she is not receiving these. I have reached out to dietary to follow-up to ensure that it is the appropriate supplement and in fact that the patient is receiving them. 09/25/2018-as above 09/28/2018-with her morbid obesity it will make healing the large abdominal wound that much more difficult. 09/29/2018-continue same (4) Cirrhosis Is this a current diagnosis for this admission?: Yes Plan: Continue current regimen. AST, ALT and bilirubin currently normal. 09/24/2018-no change in current plan. 09/25/2018-continue conservative plan. 09/26/2018-no change in treatment plan. 09/27/2018-continue current treatment plan. 09/28/2018-continue conservative plan (5) CHF (congestive heart failure) Qualifiers: Heart failure type: unspecified Heart failure chronicity: acute Qualified Code(s): I50.9 - Heart failure, unspecified Is this a current diagnosis for this admission?: Yes Plan: Continue current medication regimen as well as regular hemodialysis. Failure is considered to be diastolic. Currently with comfortable breathing. Continue to wean oxygen as tolerated. 09/24/2018-breathing has become much more comfortable. Patient receiving scheduled dialysis. Continue current medication regimen. I have added a cardiac component to her dialysis diet. 09/25/2018-the patient continues in a net negative fluid balance with the incl usion of hemodialysis. Continue current regimen. 09/26/2018-continues overall net negative fluid balance including dialysis. Continue low-salt diet. Stable on current medications. 09/27/2018-no change in medication regimen. Continue to monitor intake and output. 09/28/2018-patient is oliguric. Fluid management through dialysis. 09/29/2018-stable. No clinical signs of failure. (6) Diabetes mellitus type 2 in obese Is this a current diagnosis for this admission?: Yes Plan: Continue current insulin regimen. 09/24/2018-very good control with most Accu-Cheks below 150 and remaining are below 200. 09/25/2018-all Accu-Cheks remain below 200. No change in treatment plan. 09/26/2018-occasional Accu-Chek greater than 200. We will continue to monitor and adjust if glucose checks are consistently over 200. 09/27/[id number]-[id number] are climbing over 200. It could be the stress of the surgery. We will recheck tomorrow and adjust medications if needed. 09/28/2018-the Accu-Cheks from earlier today were both under 200. We will continue to monitor. Now that she is having surgeries she will be getting the full dose of her insulin and that should get her back to good control. 09/29/2018-continue current regimen. Monitor Accu-Cheks. Consider adjustment and medications based on sliding scale requirements. (7) Altered mental status Is this a current diagnosis for this admission?: Yes Plan: Resolved. Multiple etiologies including her uremia, pain medications and h ypercapnia on admission. 09/25/2018-as above. We will continue to monitor. 09/26/2018-the patient will contribute to the encounters occasionally. When she does it appears that she is at her baseline. 09/27/2018 -patient certainly appears to be at baseline. Her mother is present today. Her mother reports that patient is weak but did not comment on mental status. That is why I believe she is at her baseline. 09/28/2018-patient is at her baseline. Continue to monitor. She does sleep a lot during the day. As noted before her mother states that at home her day and night are reversed. 09/29/2018-remains at baseline (8) C. difficile diarrhea Is this a current diagnosis for this admission?: Yes Plan: C. difficile serology positive 09/24/2018-complete oral vancomycin as ordered. 09/25/2018-continue vancomycin 09/26/2018-vancomycin therapy completed. 09/27/2018-after reviewing Dr. Guevara's note the vancomycin was in fact discontinued. The Flagyl is for the abdominal wound. 09/28/2018-consider discontinuing contact precautions. The patient is not having diarrhea and so the presence of C. difficile is very unlikely. 09/29/2018-resolved (9) Hypertension Qualifiers: Hypertension type: essential hypertension Qualified Code(s): I10 - Essential (primary) hypertension Is this a current diagnosis for this admission?: Yes Plan: Continue current medication regimen. 09/24/2018-systolic blood pressure still slightly higher than desired. Will review current medication regimen and consider changes. 09/25/2018-continue current regimen for now. Hectic schedule with the OR this afternoon and possible surgery for her parathyroid glands. We will hold off on making acute changes at this time unless clinically warranted. 09/26/2018-reasonable blood pressure control. No changes at this time. 09/27/2018-we will continue the current medication regimen as it has been fairly effective. 09/28/2018-continue current regimen as blood pressures appear to be well controlled. 09/29/2018-continue current medication regimen (10) Constipation Qualifiers: Constipation type: unspecified constipation type Qualified Code(s): K59.00 - Constipation, unspecified Is this a current diagnosis for this admission?: Yes Plan: 09/27/2018-the patient was treated for C. difficile but has not had a bowel movement in 3 days. She was given 10 mg of Dulcolax p.o. today. I will also order as needed lactulose since this has worked in the past. 09/28/2018-the patient has lactulose available as needed. This is safe to use in renal patients. Still with no bowel movement. Will administer additional Dulcolax. 09/29/2018-continue current bowel regimen. - Time Time Spent with patient: 15-24 minutes Medications reviewed and adjusted accordingly: Yes
[2018-09-29] MEDS: INSULIN GLARGINE,HUM.REC.ANLOG 1,000 UNIT/10 ML VIAL SUBCUT SCH (22:19)
[2018-09-30] MEDS: HYDRALAZINE HCL 50 MG TABLET PO SCH ×3 (05:22→22:15)
[2018-09-30] MEDS: OXYCODONE HCL IR 5 MG TABLET PO PRN ×3 (05:24→21:52)
[2018-09-30] MEDS: INSULIN LISPRO 100 UNIT/ML 3 ML VIAL SUBCUT SCH ×4 (08:31→22:16)
[2018-09-30] MEDS: SEVELAMER HCL 800 MG TABLET PO SCH ×3 (08:31→16:44)
[2018-09-30] MEDS: IPRATROPIUM/ALBUTEROL 0.5-2.5 MG/3 ML AMPUL NEB SCH ×2 (08:53→20:34)
[2018-09-30] MEDS: CARVEDILOL 12.5 MG TABLET PO SCH ×2 (10:21→22:16)
[2018-09-30] MEDS: METRONIDAZOLE 500 MG TABLET PO SCH ×2 (10:22→22:16)
[2018-09-30] MEDS: CALCITRIOL 0.25 MCG CAPSULE PO SCH (10:22)
[2018-09-30] MEDS: FLUTICASONE/VILANTEROL 200-25 MCG/DOSE IH SCH (10:25)
--- NOTE | 2018-09-30 10:48 | PDOC PROGRESS REPORT ---
Subjective Progress Note for:: 09/30/18 Subjective:: No complaints Reason For Visit: ABDOMINAL WALL INFECTION Physical Exam Vital Signs: Temp Pulse Resp BP Pulse Ox 97.8 F 78 18 91/57 L 95 09/30/18 08:18 09/30/18 08:56 09/30/18 08:56 09/30/18 08:18 09/30/18 08:56 Intake & Output 09/29/18 09/30/18 10/01/18 06:59 06:59 06:59 Intake Total 120 1444 Output Total 1 3000 Balance 119 -1556 Weight 140.2 kg 139.2 kg GI/Abdominal exam: PRESENT: other - Wound appears mostly clean with no purulent drainage. There is small areas of fat necrosis at the periphery but most of the wound is very clean. Results Laboratory Results: 09/29/18 04:29 09/29/18 04:29 09/16/18 09/17/18 09/17/18 19:25 20:08 20:08 Creatine Kinase 24 L CK-MB (CK-2) 1.23 Troponin I 0.020 0.017 09/18/18 09/18/18 09/18/18 02:20 02:20 09:00 Creatine Kinase 21 L 26 L CK-MB (CK-2) 1.28 Troponin I 0.018 09/18/18 09:00 Creatine Kinase CK-MB (CK-2) 1.12 Troponin I 0.024 Impressions: Chest X-Ray 09/16/18 19:19 IMPRESSION: 1. No acute pulmonary findings. Assessment & Plan - Diagnosis (1) Infected abdominal wound Is this a current diagnosis for this admission?: Yes Plan: Infection under control but wound is slow to heal with scant amount of necrotic tissue in the peripheral fatty regions. May need another debridement but will hold off and allow these areas to demarcate. Continue wet-to-dry dressings.
[2018-09-30] MEDS: ENOXAPARIN SODIUM INJ 30 MG/0.3 ML DISP.SYRIN SUBCUT SCH (10:49)
[2018-09-30] MEDS: COLLAGENASE CLOSTRIDIUM HIST. OINT 30 GM TP SCH ×2 (14:35→22:17)
--- NOTE | 2018-09-30 16:30 | PDOC PROGRESS REPORT ---
Subjective Progress Note for:: 09/30/18 Subjective:: JASPREET STAFFORD is a 52 year old female with a partial past medical history of renal replacement therapy for end-stage renal failure formally on hemodialysis currently on peritoneal dialysis. Complicated by anemia, diastolic heart failure, obstructive sleep apnea, obesity, asthma, insulin-dependent diabetes, severe medication and lifestyle noncompliance. Patient was in transfusion clinic receiving transfusion of packed red blood cells but was noted disturbing an abdominal wall debridement site for calciphylaxis. She is seen in the emergency room found to have leukocytosis and referred to surgery for admission. Patient is awake and alert denying complaints, unaware of current medication regiment. 09/30/2018: Patient seen sitting up in bed and enjoying her lunch. She is awake alert oriented. She is not in pain or distress. Reason For Visit: ABDOMINAL WALL INFECTION Physical Exam Vital Signs: Temp Pulse Resp BP Pulse Ox 98.3 F 83 18 121/50 L 95 09/30/18 12:24 09/30/18 14:00 09/30/18 12:24 09/30/18 12:24 09/30/18 12:24 Intake & Output 09/29/18 09/30/18 10/01/18 06:59 06:59 06:59 Intake Total 120 1444 Output Total 1 3000 Balance 119 -1556 Weight 140.2 kg 139.2 kg General appearance: PRESENT: no acute distress Head exam: PRESENT: atraumatic Neck exam: ABSENT: carotid bruit, JVD, lymphadenopathy, thyromegaly Respiratory exam: PRESENT: clear to auscultation shira. ABSENT: rales, rhonchi, wheezes Cardiovascular exam: PRESENT: RRR. ABSENT: diastolic murmur, rubs, systolic murmur Neurological exam: PRESENT: alert, awake, oriented to person, oriented to place, oriented to time, oriented to situation Results Laboratory Results: 09/29/18 04:29 09/29/18 04:29 09/16/18 09/17/18 09/17/18 19:25 20:08 20:08 Creatine Kinase 24 L CK-MB (CK-2) 1.23 Troponin I 0.020 0.017 09/18/18 09/18/18 09/18/18 02:20 02:20 09:00 Creatine Kinase 21 L 26 L CK-MB (CK-2) 1.28 Troponin I 0.018 09/18/18 09:00 Creatine Kinase CK-MB (CK-2) 1.12 Troponin I 0.024 Impressions: Chest X-Ray 09/16/18 19:19 IMPRESSION: 1. No acute pulmonary findings. Assessment and Plan - Diagnosis (1) Abdominal wall abscess Is this a current diagnosis for this admission?: Yes Plan: Per surgical team. (2) Type 2 diabetes mellitus Is this a current diagnosis for this admission?: Yes Plan: Continue current regimen. (3) Hypertension Qualifiers: Hypertension type: essential hypertension Qualified Code(s): I10 - E ssential (primary) hypertension Is this a current diagnosis for this admission?: Yes Plan: Continue current medication (4) Morbid obesity Is this a current diagnosis for this admission?: Yes Plan: Lifestyle modification advised.
[2018-09-30] MEDS: CINACALCET HCL 30 MG TABLET PO SCH (16:44)
[2018-09-30] MEDS: FOLIC ACID/VITAMIN B COMP W-C CAPSULE PO SCH (16:44)
[2018-09-30] MEDS: INSULIN GLARGINE,HUM.REC.ANLOG 1,000 UNIT/10 ML VIAL SUBCUT SCH (22:16)
[2018-10-01 05:03] LABS: ABSOLUTE BASOPHILS # (AUTO) 0.1 10^3/uL (0.0-0.2); ABSOLUTE EOSINOPHILS # (AUTO) 0.2 10^3/uL (0.0-0.6); ABSOLUTE LYMPHOCYTES (AUTO) 1.5 10^3/uL (0.5-4.7); ABSOLUTE MONOCYTES (AUTO) 1.5 10^3/uL (0.1-1.4); BASOPHILS % (AUTO) 0.9 % (0-2); EOSINOPHILS % (AUTO) 1.7 % (0-6); LYMPHOCYTES % (AUTO) 14.8 % (13-45); MEAN CORPUSCULAR HEMOGLOBIN 25.6 pg (27.0-33.4); MEAN CORPUSCULAR HGB CONC 31.8 g/dL (32.0-36.0); MEAN CORPUSCULAR VOLUME 80 fl (80-97); MONOCYTES % (AUTO) 14.3 % (3-13); PLATELET COUNT 149 10^3/uL (150-450); RED BLOOD COUNT 2.74 10^6/uL (3.72-5.28); RED CELL DISTRIBUTION WIDTH 19.2 % (11.5-14.0); SEGMENTED NEUTROPHILS % (AUTO) 68.3 % (42-78); TOTAL CELLS COUNTED % (AUTO) 100 %; WHITE BLOOD COUNT 10.2 10^3/uL (4.0-10.5)
[2018-10-01 05:22] LABS: ALBUMIN 2.3 g/dL (3.5-5.0); ALKALINE PHOSPHATASE 118 U/L (38-126); ANION GAP 17 (5-19); ASPARTATE AMINO TRANSFERASE 12 U/L (14-36); BILIRUBIN,DIRECT 0.5 mg/dL (0.0-0.4); BILIRUBIN,TOTAL 0.5 mg/dL (0.2-1.3); BLOOD UREA NITROGEN 39 mg/dL (7-20); CALCIUM 9.9 mg/dL (8.4-10.2); CARBON DIOXIDE 24 mmol/L (22-30); CHLORIDE 96 mmol/L (98-107); GLUCOSE 102 mg/dL (75-110); POTASSIUM 4.2 mmol/L (3.6-5.0); TOTAL PROTEIN 5.6 g/dL (6.3-8.2)
[2018-10-01] MEDS: HYDRALAZINE HCL 50 MG TABLET PO SCH ×3 (06:11→21:55)
[2018-10-01] MEDS: OXYCODONE HCL IR 5 MG TABLET PO PRN ×2 (06:11→12:40)
[2018-10-01] MEDS: IPRATROPIUM/ALBUTEROL 0.5-2.5 MG/3 ML AMPUL NEB SCH ×2 (08:52→20:49)
--- NOTE | 2018-10-01 08:57 | PDOC PROGRESS REPORT ---
Subjective Progress Note for:: 10/01/18 Subjective:: 52-year-old female with a large abdominal wound due to calciphylaxis. The patient complains of pain at the wound. There is no foul smell emanating from the wound. She reports fatigue, malaise, and abdominal pain. She denies shortness of breath, chest pain, headache, fevers, dizziness, blurry vision. Reason For Visit: ABDOMINAL WALL INFECTION Physical Exam Vital Signs: Temp Pulse Resp BP Pulse Ox 97.7 F 73 18 150/60 H 91 L 10/01/18 03:30 10/01/18 07:00 10/01/18 03:30 10/01/18 03:30 10/01/18 03:30 Intake & Output 09/30/18 10/01/18 10/02/18 06:59 06:59 06:59 Intake Total 1444 1196 Output Total 3000 Balance -1556 1196 Weight 139.2 kg 138.7 kg General appearance: PRESENT: morbidly obese Skin exam: PRESENT: other - Wound with lateral area that is maginal. Granulation tissue present in the base of the wound. Results Laboratory Results: 10/01/18 04:34 10/01/18 04:34 10/01/18 10/01/18 04:34 04:34 WBC 10.2 RBC 2.74 L Hgb 7.0 L Hct 22.0 L MCV 80 MCH 25.6 L MCHC 31.8 L RDW 19.2 H Plt Count 149 L Seg Neutrophils % 68.3 Lymphocytes % 14.8 Monocytes % 14.3 H Eosinophils % 1.7 Basophils % 0.9 Absolute Neutrophils 7.0 Absolute Lymphocytes 1.5 Absolute Monocytes 1.5 H Absolute Eosinophils 0.2 Absolute Basophils 0.1 Sodium 136.9 L Potassium 4.2 Chloride 96 L Carbon Dioxide 24 Anion Gap 17 BUN 39 H Creatinine 8.50 H Est GFR ( Amer) 6 L Est GFR (Non-Af Amer) 5 L Glucose 102 Calcium 9.9 Total Bilirubin 0.5 AST 12 L Alkaline Phosphatase 118 Total Protein 5.6 L Albumin 2.3 L 09/16/18 09/17/18 09/17/18 19:25 20:08 20:08 Creatine Kinase 24 L CK-MB (CK-2) 1.23 Troponin I 0.020 0.017 09/18/18 09/18/1809/18/19 02:20 02:20 09:00 Creatine Kinase 21 L 26 L CK-MB (CK-2) 1.28 Troponin I 0.018 09/18/18 09:00 Creatine Kinase CK-MB (CK-2) 1.12 Troponin I 0.024 Impressions: Chest X-Ray 09/16/18 19:19 IMPRESSION: 1. No acute pulmonary findings. Assessment & Plan - Diagnosis (1) Calciphylaxis Is this a current diagnosis for this admission?: Yes (2) Infected abdominal wound Is this a current diagnosis for this admission?: Yes - Plan Summary Plan Summary: 52 y/o F with a large abdominal wound. Her wound has several areas laterally that are marginal. Overall the wound looks much better. Cont with santyl and dressing changes. Will follow.
[2018-10-01] MEDS ORDERED: HEPARIN SOD (PORCINE) 1,000 UNIT/ML 10 ML VIAL IV PRN (09:21)
[2018-10-01] MEDS ORDERED: EPOETIN ALFA-EPBX 40,000 UNIT/ML VIAL (RENAL) IV PRN (09:24)
[2018-10-01] MEDS: SEVELAMER HCL 800 MG TABLET PO SCH ×3 (12:40→17:06)
[2018-10-01] MEDS: CARVEDILOL 12.5 MG TABLET PO SCH ×2 (12:41→21:54)
[2018-10-01] MEDS: CALCITRIOL 0.25 MCG CAPSULE PO SCH (12:42)
[2018-10-01] MEDS: FLUTICASONE/VILANTEROL 200-25 MCG/DOSE IH SCH (12:43)
--- NOTE | 2018-10-01 13:06 | PDOC PROGRESS REPORT ---
Subjective Progress Note for:: 10/01/18 Subjective:: JASPREET STAFFORD is a 52 year old female with a partial past medical history of renal replacement therapy for end-stage renal failure formally on hemodialysis currently on peritoneal dialysis. Complicated by anemia, diastolic heart failure, obstructive sleep apnea, obesity, asthma, insulin-dependent diabetes, severe medication and lifestyle noncompliance. Patient was in transfusion clinic receiving transfusion of packed red blood cells but was noted disturbing an abdominal wall debridement site for calciphylaxis. She is seen in the emergency room found to have leukocytosis and referred to surgery for admission. Patient is awake and alert denying complaints, unaware of current medication regiment. 09/30/2018: Patient seen sitting up in bed and enjoying her lunch. She is awake alert oriented. She is not in pain or distress. 10/01/2018: No adverse events overnight. Patient's hemoglobin is 7. I will defer management of her anemia to Dr. Casper her primary export documents clerk. Reason For Visit: ABDOMINAL WALL INFECTION Physical Exam Vital Signs: Temp Pulse Resp BP Pulse Ox 97.4 F 70 18 131/65 H 97 10/01/18 11:46 10/01/18 11:46 10/01/18 11:46 10/01/18 11:46 10/01/18 11:46 Intake & Output 09/30/18 10/01/18 10/02/18 06:59 06:59 06:59 Intake Total 1444 1196 600 Output Total 3000 3000 Balance -1556 1196 -2400 Weight 139.2 kg 138.7 kg General appearance: PRESENT: no acute distress Head exam: PRESENT: atraumatic Mouth exam: PRESENT: moist Neck exam: ABSENT: carotid bruit, JVD, lymphadenopathy, thyromegaly Respiratory exam: PRESENT: clear to auscultation shira. ABSENT: rales, rhonchi, wheezes Cardiovascular exam: PRESENT: RRR. ABSENT: diastolic murmur, rubs, systolic murmur Results Laboratory Results: 10/01/18 04:34 10/01/18 04:34 10/01/18 10/01/18 10/01/18 04:34 04:34 09:00 WBC 10.2 RBC 2.74 L Hgb 7.0 L Hct 22.0 L MCV 80 MCH 25.6 L MCHC 31.8 L RDW 19.2 H Plt Count 149 L Seg Neutrophils % 68.3 Lymphocytes % 14.8 Monocytes % 14.3 H Eosinophils % 1.7 Basophils % 0.9 Absolute Neutrophils 7.0 Absolute Lymphocytes 1.5 Absolute Monocytes 1.5 H Absolute Eosinophils 0.2 Absolute Basophils 0.1 Sodium 136.9 L Potassium 4.2 Chloride 96 L Carbon Dioxide 24 Anion Gap 17 BUN 39 H Creatinine 8.50 H Est GFR ( Amer) 6 L Est GFR (Non-Af Amer) 5 L Glucose 102 Calcium 9.9 Total Bilirubin 0.5 AST 12 L Alkaline Phosphatase 118 Total Protein 5.6 L Albumin 2.3 L Blood Type O POSITIVE Antibody Screen NEGATIVE 09/16/18 09/17/18 09/17/18 19:25 20:08 20:08 Creatine Kinase 24 L CK-MB (CK-2) 1.23 Troponin I 0.020 0.017 09/18/18 09/18/18 09/18/18 02:20 02:20 09:00 Creatine Kinase 21 L 26 L CK-MB (CK-2) 1.28 Troponin I 0.018 09/18/18 09:00 Creatine Kinase CK-MB (CK-2) 1.12 Troponin I 0.024 Impressions: Chest X-Ray 09/16/18 19:19 IMPRESSION: 1. No acute pulmonary findings. Assessment and Plan - Diagnosis (1) Abdominal wall abscess Is this a current diagnosis for this admission?: Yes Plan: Per surgical team. (2) Type 2 diabetes mellitus Is this a current diagnosis for this admission?: Yes Plan: Continue current regimen. (3) Hypertension Qualifiers: Hypertension type: essential hypertension Qualified Code(s): I10 - Essential (primary) hypertension Is this a current diagnosis for this admission?: Yes Plan: Continue current medication (4) Morbid obesity Is this a current diagnosis for this admission?: Yes Plan: Lifestyle modification advised. (5) Obstructive sleep apnea Is this a current diagnosis for this admission?: Yes Plan: Continue CPAP
--- NOTE | 2018-10-01 13:23 | PDOC PROGRESS REPORT ---
Subjective Progress Note for:: 10/01/18 Subjective:: I saw the patient during dialysis treatment this morning and around 8:30 AM. She is looking that she is much better compared to last week. She is very much awake and in her usual baseline mental state. She is tolerating dialysis very well. She wanted to go home. She continues to be followed by surgery for her abdominal wound. Currently having dressing changes and Santyl ointment. Awaiting final word if the patient can be discharged home soon. Patient is currently on Flagyl per ID recommendation. White count has been coming down. Patient also mentioned that she has left breast pain. She had a breast ultrasound yesterday but results are still pending so far. Reason For Visit: ABDOMINAL WALL INFECTION Physical Exam Vital Signs: Temp Pulse Resp BP Pulse Ox 97.4 F 70 18 131/65 H 97 10/01/18 11:46 10/01/18 11:46 10/01/18 11:46 10/01/18 11:46 10/01/18 11:46 Intake & Output 09/30/18 10/01/18 10/02/18 06:59 06:59 06:59 Intake Total 1444 1196 600 Output Total 3000 3000 Balance -1556 1196 -2400 Weight 139.2 kg 138.7 kg Vitals during dialysis: Blood pressure 149/56, heart rate of 73, blood flow rate 350 mg minute and dialysate flow rate of 600 mL/min. Exam: General appearance: PRESENT: no acute distress, cooperative, well-developed, well-nourished Head exam: PRESENT: atraumatic, normocephalic Eye exam: PRESENT: conjunctiva pale, PERRLA. ABSENT: scleral icterus Neck exam: ABSENT: JVD Respiratory exam: PRESENT: Normal breath sounds. ABSENT: crackles, rales, rhonchi, unlabored, wheezes Cardiovascular exam: PRESENT: Regular rate rhythm -+S1, +S2. Left breast showed indurated area with some nodularities in the left lower quadrant associated with some swelling and tenderness. ABSENT: diastolic murmur, systolic murmur GI/Abdominal exam: PRESENT: normal bowel sounds, soft. Right lower quadrant abdominal wound with dressing. ABSENT: guarding, mass, tenderness Extremities exam: ABSENT: No edema Neurological exam: PRESENT: alert, awake, oriented to person, place and time. Skin exam: PRESENT: dry, warm, Cardiovascular exam: PRESENT: +S1, +S2 GI/Abdominal exam: PRESENT: normal bowel sounds, soft. ABSENT: organomegaly, tenderness Results Laboratory Results: 10/01/18 04:34 10/01/18 04:34 10/01/18 10/01/18 10/01/18 04:34 04:34 09:00 WBC 10.2 RBC 2.74 L Hgb 7.0 L Hct 22.0 L MCV 80 MCH 25.6 L MCHC 31.8 L RDW 19.2 H Plt Count 149 L Seg Neutrophils % 68.3 Lymphocytes % 14.8 Monocytes % 14.3 H Eosinophils % 1.7 Basophils % 0.9 Absolute Neutrophils 7.0 Absolute Lymphocytes 1.5 Absolute Monocytes 1.5 H Absolute Eosinophils 0.2 Absolute Basophils 0.1 Sodium 136.9 L Potassium 4.2 Chloride 96 L Carbon Dioxide 24 Anion Gap 17 BUN 39 H Creatinine 8.50 H Est GFR ( Amer) 6 L Est GFR (Non-Af Amer) 5 L Glucose 102 Calcium 9.9 Total Bilirubin 0.5 AST 12 L Alkaline Phosphatase 118 Total Protein 5.6 L Albumin 2.3 L Blood Type O POSITIVE Antibody Screen NEGATIVE 09/16/18 09/17/18 09/17/18 19:25 20:08 20:08 Creatine Kinase 24 L CK-MB (CK-2) 1.23 Troponin I 0.020 0.017 09/18/18 09/18/18 09/18/18 02:20 02:20 09:00 Creatine Kinase 21 L 26 L CK-MB (CK-2) 1.28 Troponin I 0.018 09/18/18 09:00 Creatine Kinase CK-MB (CK-2) 1.12 Troponin I 0.024 Impressions: Chest X-Ray 09/16/18 19:19 IMPRESSION: 1. No acute pulmonary findings. Assessment & Plan - Diagnosis (1) Calciphylaxis Is this a current diagnosis for this admission?: Yes Plan: Present on her right lower quadrant abdominal wall. Patient is currently now on sodium thiosulfate being given at 25 g 3 times a week post hemodialysis treatment started on September 11, 2018. This needs to be given for at least 3 months. Generally has poor prognosis and may lead to on occasions. There is really no proven good treatment for calciphylaxis unfortunately. Sodium thiosulfate is the one medication being used to treat it which patient may or may not respond. Parathyroidectomy has been used for treatment, however there was not any good study to support its use. Patient's phosphorus is currently controlled with sevelamer. Patient is also on calcimimetics which she is reported to be better than parathyroidectomy for treatment. (2) ESRD (end stage renal disease) on dialysis Is this a current diagnosis for this admission?: Yes Plan: Patient will be on hemodialysis moving forward. We did dialysis today for 3 hours, using the patient's PermCath, with 2 potassium bath, blood flow rate of 350 mL per minute, dialysate flow rate of 600 mL per minute, ultrafiltration 3 L as tolerated, no heparin and Procrit with 40,000 units during dialysis intravenously. Patient was also given and transfused 2 units of packed RBC during dialysis treatment. Patient was monitored continuously throughout dialysis treatment and she tolerated it well without any problems or complications. (3) Infected abdominal wound Is this a current diagnosis for this admission?: Yes Plan: Status post debridement by surgery on September 16 and September 25. Original wound culture on 09/16/2018 was polymicrobial. Patient had 1 week of IV cefepime, 2 days of IV meropenem and per infectious disease recommendation currently now on Flagyl. The white count has been coming down. (4) Abdominal wall abscess Is this a current diagnosis for this admission?: Yes (5) Abdominal pain Qualifiers: Abdominal location: right lower quadrant Qualified Code(s): R10.31 - Right lower quadrant pain Is this a current diagnosis for this admission?: Yes (6) Abdominal wall mass of right lower quadrant Is this a current diagnosis for this admission?: Yes Plan: This is due to calciphylaxis which has progressed to an abscess. (7) Anemia in chronic kidney disease (CKD) Qualifiers: Chronic kidney disease stage: unspecified stage Qualified Code(s): N18.9 - Chronic kidney disease, unspecified; D63.1 - Anemia in chronic kidney disease Is this a current diagnosis for this admission?: Yes Plan: Hemoglobin has gone down to 7.0 today. I ordered 2 units of packed RBC transf usion during dialysis treatment. We will also give Procrit 40,000 units IV during dialysis. (8) Hypertension Qualifiers: Hypertension type: essential hypertension Qualified Code(s): I10 - Essential (primary) hypertension Is this a current diagnosis for this admission?: Yes Plan: This is labile and affected by dialysis treatment and her pain. Continue current blood pressure medications. (9) Type 2 diabetes mellitus Is this a current diagnosis for this admission?: Yes (10) Jerky body movements Is this a current diagnosis for this admission?: Yes Plan: Drug-induced likely secondary to Reglan and Lyrica. Improved. (11) Hyperphosphatemia Is this a current diagnosis for this admission?: Yes Plan: On sevelamer. Most recent phosphorus level is 4.6. (12) Secondary hyperparathyroidism (of renal origin) Is this a current diagnosis for this admission?: Yes Plan: On calcitriol and cinacalcet. (13) Breast pain, left Is this a current diagnosis for this admission?: Yes Plan: Breast ultrasound pending. (14) Morbid obesity with BMI of 40.0-44.9, adult Is this a current diagnosis for this admission?: Yes - Time Time with patient: 15-25 minutes
[2018-10-01] MEDS: INSULIN LISPRO 100 UNIT/ML 3 ML VIAL SUBCUT SCH ×4 (14:05→21:55)
[2018-10-01] MEDS: METRONIDAZOLE 500 MG TABLET PO SCH ×2 (14:09→21:54)
[2018-10-01] MEDS: ENOXAPARIN SODIUM INJ 30 MG/0.3 ML DISP.SYRIN SUBCUT SCH (14:10)
[2018-10-01] MEDS: NORMAL SALINE IV SCH (14:14)
[2018-10-01] MEDS: COLLAGENASE CLOSTRIDIUM HIST. OINT 30 GM TP SCH ×2 (14:14→21:57)
[2018-10-01] MEDS: SODIUM THIOSULFATE IV SCH (14:14)
[2018-10-01] MEDS: CEFEPIME HCL 2 GM in DEXTROSE 5%-WATER 50 ML IV SCH (17:05)
[2018-10-01] MEDS: CINACALCET HCL 30 MG TABLET PO SCH (17:06)
[2018-10-01] MEDS: FOLIC ACID/VITAMIN B COMP W-C CAPSULE PO SCH (17:06)
[2018-10-01] MEDS: INSULIN GLARGINE,HUM.REC.ANLOG 1,000 UNIT/10 ML VIAL SUBCUT SCH (21:55)
[2018-10-02] MEDS: OXYCODONE HCL IR 5 MG TABLET PO PRN ×3 (05:45→20:42)
[2018-10-02] MEDS: HYDRALAZINE HCL 50 MG TABLET PO SCH ×3 (05:45→21:53)
[2018-10-02] MEDS: IPRATROPIUM/ALBUTEROL 0.5-2.5 MG/3 ML AMPUL NEB SCH (08:31)
[2018-10-02] MEDS ORDERED: ONDANSETRON HCL INJ/PF 4 MG/2 ML SDV ONE (09:21)
[2018-10-02] MEDS ORDERED: MIDAZOLAM 2 MG/2 ML INJ ONE (09:21)
[2018-10-02] MEDS ORDERED: PROPOFOL INJ 200 MG/20 ML VIAL IV ONE (09:21)
[2018-10-02] MEDS ORDERED: FENTANYL CITRATE INJ/PF 100 MCG/2 ML AMPUL ONE (09:22)
[2018-10-02] MEDS ORDERED: FAMOTIDINE INJ/PF 20 MG/2 ML SDV IV ONE (09:38)
--- NOTE | 2018-10-02 09:40 | PDOC PROGRESS REPORT ---
Subjective Progress Note for:: 10/02/18 Subjective:: No complaints. Reason For Visit: ABDOMINAL WALL INFECTION Physical Exam Vital Signs: Temp Pulse Resp BP Pulse Ox 98.1 F 87 18 133/79 H 99 10/02/18 07:17 10/02/18 08:31 10/02/18 08:31 10/02/18 07:17 10/02/18 08:31 Intake & Output 10/01/18 10/02/18 10/03/18 06:59 06:59 06:59 Intake Total 1196 900 Output Total 3000 Balance 1196 -2100 Weight 138.7 kg 135.2 kg General appearance: PRESENT: no acute distress, cooperative Cardiovascular exam: PRESENT: RRR GI/Abdominal exam: PRESENT: other - Wound with small regions of necrosis at the peripheral fat but most of wound has now some granulation tissue. Results Laboratory Results: 10/01/18 04:34 10/01/18 04:34 10/01/18 09:00 Blood Type O POSITIVE Antibody Screen NEGATIVE 09/16/18 09/17/18 09/17/18 19:25 20:08 20:08 Creatine Kinase 24 L CK-MB (CK-2) 1.23 Troponin I 0.020 0.017 09/18/18 09/18/18 09/18/18 02:20 02:20 09:00 Creatine Kinase 21 L 26 L CK-MB (CK-2) 1.28 Troponin I 0.018 09/18/18 09:00 Creatine Kinase CK-MB (CK-2) 1.12 Troponin I 0.024 Impressions: Chest X-Ray 09/16/18 19:19 IMPRESSION: 1. No acute pulmonary findings. Assessment & Plan - Diagnosis (1) Infected abdominal wound Is this a current diagnosis for this admission?: Yes Plan: Infection under control but wound is slow to heal with small regions of necrotic tissue in the peripheral fatty regions. She does have granulation tissue now and most of the wound appears very clean. I believe she would benefit from debridement of the necrotic regions in the OR today. I have explained to the patient the risks and benefits of the surgery including risk of prolonged wound healing, bleeding, infection, cardiopulmonary risks. Patient understands and agrees to proceed. Hopefully we can get a wound VAC back on her in the next couple of days after surgery. (2) Anemia Is this a current diagnosis for this admission?: Yes Plan: Patient with chronic anemia but she has a wound that is slow to heal and I believe that she would benefit from a transfusion. Will discuss with nephrology about a transfusion with her next hemodialysis session.
[2018-10-02] MEDS ORDERED: LIDOCAINE 1%/EPINEPHRINE INJ 20 ML VIAL ONE (09:53)
[2018-10-02] MEDS ORDERED: METRONIDAZOLE 500 MG/NS RTU 500 MG/100 ML RTUPB IV ONE (10:05)
[2018-10-02] MEDS ORDERED: KETAMINE HCL INJ 500 MG/10 ML VIAL ONE (11:04)
[2018-10-02] MEDS ORDERED: DIPHENHYDRAMINE HCL 50 MG/ML VIAL IV PRN (11:08)
[2018-10-02] MEDS ORDERED: PROMETHAZINE HCL INJ 25 MG/1 ML VIAL IV PRN (11:08)
[2018-10-02] MEDS ORDERED: FENTANYL CITRATE INJ/PF 100 MCG/2 ML AMPUL IV PRN ×3 (11:08)
[2018-10-02] MEDS ORDERED: MEPERIDINE HCL/PF INJ 25 MG/1 ML DISP.SYRIN IV PRN (11:08)
[2018-10-02] MEDS ORDERED: MORPHINE SULFATE 10 MG/ML INJ IV PRN (11:08)
[2018-10-02] MEDS ORDERED: LIDOCAINE 1% INJ-PF (10 MG/ML) 30 ML SDV ONE (11:09)
--- NOTE | 2018-10-02 11:33 | Operative Report ---
Operative Report DATE OF SURGERY: 10/02/18 PREOPERATIVE DIAGNOSIS: Necrotic regions of wound. POSTOPERATIVE DIAGNOSIS: Necrotic regions of abdominal wound. OPERATION: Excisional debridement of abdominal wound. SURGEON: KORTNEY CORBETT ANESTHESIA: LMAC TISSUE REMOVED OR ALTERED: Necrotic fat at the periphery of large abdominal wound. COMPLICATIONS: None ESTIMATED BLOOD LOSS: 10 cc INTRAOPERATIVE FINDINGS: Patches of necrotic fat at the periphery of wide abdominal wound PROCEDURE: Informed consent was obtained. Patient was brought to the operating room and placed on the operating room table in the supine position. Procedure was done in the LMAC. The wound was prepped and draped in usual sterile fashion. Local anesthetic was administered. Patient had a large lower abdominal wound. The wound can edges appeared viable however there were regions of necrotic fat scattered along the periphery of the wound. These regions of necrotic fat was sharply debrided with a scissors. A total of approximately 20 cm x 2 cm x 2 cm areas of necrotic fat was excised. Hemostasis was achieved with electrocautery. The wound was then irrigated. The wound was then dressed with wet-to-dry dressing. Patient tolerated procedure well with no apparent complications and was taken to the recovery area in stable condition.
[2018-10-02] MEDS: INSULIN LISPRO 100 UNIT/ML 3 ML VIAL SUBCUT SCH ×3 (12:19→21:53)
[2018-10-02] MEDS: SEVELAMER HCL 800 MG TABLET PO SCH ×3 (12:19→16:26)
[2018-10-02] MEDS: ENOXAPARIN SODIUM INJ 30 MG/0.3 ML DISP.SYRIN SUBCUT SCH (12:20)
[2018-10-02] MEDS: CALCITRIOL 0.25 MCG CAPSULE PO SCH (12:20)
[2018-10-02] MEDS: METRONIDAZOLE 500 MG TABLET PO SCH ×2 (12:20→21:53)
[2018-10-02] MEDS: CARVEDILOL 12.5 MG TABLET PO SCH ×2 (13:42→21:53)
[2018-10-02] MEDS: FLUTICASONE/VILANTEROL 200-25 MCG/DOSE IH SCH (13:44)
--- NOTE | 2018-10-02 14:31 | PDOC PROGRESS REPORT ---
Subjective Progress Note for:: 10/02/18 Subjective:: JASPREET STAFFORD is a 52 year old female with a partial past medical history of renal replacement therapy for end-stage renal failure formally on hemodialysis currently on peritoneal dialysis. Complicated by anemia, diastolic heart failure, obstructive sleep apnea, obesity, asthma, insulin-dependent diabetes, severe medication and lifestyle noncompliance. Patient was in transfusion clinic receiving transfusion of packed red blood cells but was noted disturbing an abdominal wall debridement site for calciphylaxis. She is seen in the emergency room found to have leukocytosis and referred to surgery for admission. Patient is awake and alert denying complaints, unaware of current medication regiment. 09/30/2018: Patient seen sitting up in bed and enjoying her lunch. She is awake alert oriented. She is not in pain or distress. 10/01/2018: No adverse events overnight. Patient's hemoglobin is 7. I will defer management of her anemia to Dr. Casper her primary batter mixer. 10/02/2018: This morning patient taken to the OR by Dr. Persaud who perfor med for the second time extensive debridement of large abdominal wound. He removed necrotic fat tissue. Patient tolerated the procedure and brought to the floor. Reason For Visit: ABDOMINAL WALL INFECTION Physical Exam Vital Signs: Temp Pulse Resp BP Pulse Ox 97.7 F 75 15 142/75 H 98 10/02/18 11:35 10/02/18 12:20 10/02/18 12:20 10/02/18 12:20 10/02/18 12:20 Intake & Output 10/01/18 10/02/18 10/03/18 06:59 06:59 06:59 Intake Total 1196 900 600 Output Total 3000 250 Balance 1196 -2100 350 Weight 138.7 kg 135.2 kg General appearance: PRESENT: no acute distress Mouth exam: PRESENT: dry mucosa Neck exam: ABSENT: carotid bruit, JVD, lymphadenopathy, thyromegaly Respiratory exam: PRESENT: clear to auscultation shira. ABSENT: rales, rhonchi, wheezes Cardiovascular exam: PRESENT: RRR. ABSENT: diastolic murmur, rubs, systolic murmur GI/Abdominal exam: PRESENT: other - Dressed abdominal wound Results Laboratory Results: 10/01/18 04:34 10/01/18 04:34 09/16/18 09/17/18 09/17/18 19:25 20:08 20:08 Creatine Kinase 24 L CK-MB (CK-2) 1.23 Troponin I 0.020 0.017 09/18/18 09/18/18 09/18/18 02:20 02:20 09:00 Creatine Kinase 21 L 26 L CK-MB (CK-2) 1.28 Troponin I 0.018 09/18/18 09:00 Creatine Kinase CK-MB (CK-2) 1.12 Troponin I 0.024 Impressions: Chest X-Ray 09/16/18 19:19 IMPRESSION: 1. No acute pulmonary findings. Assessment and Plan - Diagnosis (1) Abdominal wall abscess Is this a current diagnosis for this admission?: Yes Plan: Status post repeat extensive debridement. (2) Type 2 diabetes mellitus Is this a current diagnosis for this admission?: Yes Plan: Continue current regimen. (3) Hypertension Qualifiers: Hypertension type: essential hypertension Qualified Code(s): I10 - Essential (primary) hypertension Is this a current diagnosis for this admission?: Yes Plan: Continue current medication (4) Morbid obesity Is this a current diagnosis for this admission?: Yes Plan: Lifestyle modification advised. (5) Obstructive sleep apnea Is this a current diagnosis for this admission?: Yes Plan: Continue CPAP (6) Calciphylaxis Is this a current diagnosis for this admission?: Yes Plan: Related to her end-stage renal disease and uncontrolled diabetes mellitus
[2018-10-02] MEDS: COLLAGENASE CLOSTRIDIUM HIST. OINT 30 GM TP SCH ×2 (15:52→23:43)
[2018-10-02] MEDS: FOLIC ACID/VITAMIN B COMP W-C CAPSULE PO SCH (16:26)
[2018-10-02] MEDS: CINACALCET HCL 30 MG TABLET PO SCH (16:27)
[2018-10-02] MEDS: INSULIN GLARGINE,HUM.REC.ANLOG 1,000 UNIT/10 ML VIAL SUBCUT SCH (21:54)
[2018-10-03] MEDS ORDERED: HEPARIN SOD (PORCINE) 1,000 UNIT/ML 10 ML VIAL IV PRN (05:00)
[2018-10-03] MEDS ORDERED: NORMAL SALINE 1000 ML 1,000 ML IV PRN (05:00)
[2018-10-03] MEDS ORDERED: EPOETIN ALFA INJ 40000 UNIT/1 ML (RENAL) IV PRN (05:00)
[2018-10-03] MEDS: HYDRALAZINE HCL 50 MG TABLET PO SCH ×3 (06:00→21:17)
[2018-10-03 06:01] LABS: ABSOLUTE BASOPHILS # (AUTO) 0.1 10^3/uL (0.0-0.2); ABSOLUTE EOSINOPHILS # (AUTO) 0.2 10^3/uL (0.0-0.6); ABSOLUTE LYMPHOCYTES (AUTO) 1.8 10^3/uL (0.5-4.7); ABSOLUTE MONOCYTES (AUTO) 1.2 10^3/uL (0.1-1.4); ABSOLUTE NEUT (AUTO) 6.4 10^3/uL (1.7-8.2); BASOPHILS % (AUTO) 0.6 % (0-2); EOSINOPHILS % (AUTO) 1.8 % (0-6); HEMATOCRIT 29.4 % (36.0-47.0); MEAN CORPUSCULAR HEMOGLOBIN 26.3 pg (27.0-33.4); MEAN CORPUSCULAR VOLUME 82 fl (80-97); MONOCYTES % (AUTO) 12.5 % (3-13); PLATELET COUNT 179 10^3/uL (150-450); RED BLOOD COUNT 3.57 10^6/uL (3.72-5.28); RED CELL DISTRIBUTION WIDTH 18.8 % (11.5-14.0); SEGMENTED NEUTROPHILS % (AUTO) 66.1 % (42-78); TOTAL CELLS COUNTED % (AUTO) 100 %; WHITE BLOOD COUNT 9.6 10^3/uL (4.0-10.5)
[2018-10-03 06:03] LABS: HEMOGLOBIN 9.4 g/dL (12.0-15.5)
[2018-10-03 06:19] LABS: BLOOD UREA NITROGEN 35 mg/dL (7-20); CALCIUM 10.1 mg/dL (8.4-10.2); CARBON DIOXIDE 19 mmol/L (22-30); CHLORIDE 96 mmol/L (98-107); GLUCOSE 127 mg/dL (75-110); POTASSIUM 4.3 mmol/L (3.6-5.0)
[2018-10-03 06:30] LABS: ANION GAP 22 (5-19)
[2018-10-03] MEDS: OXYCODONE HCL IR 5 MG TABLET PO PRN ×2 (08:03→18:08)
[2018-10-03] MEDS ORDERED: EPOETIN ALFA-EPBX 40,000 UNIT/ML VIAL (RENAL) IV SCH ×2 (08:45→18:00)
[2018-10-03] MEDS ORDERED: EPOETIN ALFA-EPBX 40,000 UNIT/ML VIAL (RENAL) IV PRN (09:30)
--- NOTE | 2018-10-03 09:46 | PDOC PROGRESS REPORT ---
Subjective Progress Note for:: 10/03/18 Subjective:: mild pains I&D site left buttock Reason For Visit: ABDOMINAL WALL INFECTION Physical Exam Vital Signs: Temp Pulse Resp BP Pulse Ox 97.0 F 78 18 140/79 H 97 10/03/18 07:24 10/03/18 07:24 10/03/18 07:24 10/03/18 07:24 10/03/18 07:24 Intake & Output 10/02/18 10/03/18 10/04/18 06:59 06:59 06:59 Intake Total 900 900 Output Total 3000 250 Balance -2100 650 Weight 135.2 kg 137.8 kg Exam: Packing removed. Wound relatively clean Results Laboratory Results: 10/03/18 05:18 10/03/18 05:18 10/03/18 10/03/18 05:18 05:18 WBC 9.6 RBC 3.57 L Hgb 9.4 L D Hct 29.4 L MCV 82 MCH 26.3 L MCHC 32.0 RDW 18.8 H Plt Count 179 Seg Neutrophils % 66.1 Lymphocytes % 19.0 Monocytes % 12.5 Eosinophils % 1.8 Basophils % 0.6 Absolute Neutrophils 6.4 Absolute Lymphocytes 1.8 Absolute Monocytes 1.2 Absolute Eosinophils 0.2 Absolute Basophils 0.1 Sodium 136.9 L Potassium 4.3 Chloride 96 L Carbon Dioxide 19 L Anion Gap 22 H BUN 35 H Creatinine 8.13 H Est GFR ( Amer) 6 L Est GFR (Non-Af Amer) 5 L Glucose 127 H Calcium 10.1 09/16/18 09/17/18 09/17/18 19:25 20:08 20:08 Creatine Kinase 24 L CK-MB (CK-2) 1.23 Troponin I 0.020 0.017 09/18/18 09/18/18 09/18/18 02:20 02:20 09:00 Creatine Kinase 21 L 26 L CK-MB (CK-2) 1.28 Troponin I 0.018 09/18/18 09:00 Creatine Kinase CK-MB (CK-2) 1.12 Troponin I 0.024 Impressions: Chest X-Ray 09/16/18 19:19 IMPRESSION: 1. No acute pulmonary findings. Assessment & Plan - Diagnosis (1) Abscess of left buttock Is this a current diagnosis for this admission?: Yes - Time Time Spent with patient: 15-24 minutes - Inpatient Certification Medical Necessity: Need Close Monitoring Due to Risk of Patient Decompensation, Need for IV Antibiotics - Plan Summary Plan Summary: Will start wet to dry dressing today and possibly start wound vac tomorrow Continue IV antibiotics
[2018-10-03] MEDS: SODIUM THIOSULFATE IV SCH (09:58)
[2018-10-03] MEDS: NORMAL SALINE IV SCH (09:58)
--- NOTE | 2018-10-03 12:40 | PDOC PROGRESS REPORT ---
Subjective Progress Note for:: 10/03/18 Subjective:: JASPREET STAFFORD is a 52 year old female with a partial past medical history of renal replacement therapy for end-stage renal failure formally on hemodialysis currently on peritoneal dialysis. Complicated by anemia, diastolic heart failure, obstructive sleep apnea, obesity, asthma, insulin-dependent diabetes, severe medication and lifestyle noncompliance. Patient was in transfusion clinic receiving transfusion of packed red blood cells but was noted disturbing an abdominal wall debridement site for calciphylaxis. She is seen in the emergency room found to have leukocytosis and referred to surgery for admission. Patient is awake and alert denying complaints, unaware of current medication regiment. 09/30/2018: Patient seen sitting up in bed and enjoying her lunch. She is awake alert oriented. She is not in pain or distress. 10/01/2018: No adverse events overnight. Patient's hemoglobin is 7. I will defer management of her anemia to Dr. Casper her primary branch store manager. 10/02/2018: This morning patient taken to the OR by Dr. Persaud who perfor med for the second time extensive debridement of large abdominal wound. He removed necrotic fat tissue. Patient tolerated the procedure and brought to the floor. 10/03/2018: Patient seen resting in bed comfortably. She has Port-A-Cath on the right chest. Dr. Pichardo states "Will start wet to dry dressing today and possibly start wound vac tomorrow". Patient does not have new complaint. Reason For Visit: ABDOMINAL WALL INFECTION Physical Exam Vital Signs: Temp Pulse Resp BP Pulse Ox 97.9 F 79 18 109/54 L 97 10/03/18 11:48 10/03/18 12:09 10/03/18 12:09 10/03/18 11:48 10/03/18 12:09 Intake & Output 10/02/18 10/03/18 10/04/18 06:59 06:59 06:59 Intake Total 900 900 250 Output Total 3000 250 2500 Balance -2100 650 -2250 Weight 135.2 kg 137.8 kg General appearance: PRESENT: no acute distress Respiratory exam: PRESENT: clear to auscultation shira. ABSENT: rales, rhonchi, wheezes Cardiovascular exam: PRESENT: RRR. ABSENT: diastolic murmur, rubs, systolic murmur Neurological exam: PRESENT: alert, awake, oriented to person, oriented to place, oriented to time Results Laboratory Results: 10/03/18 05:18 10/03/18 05:18 10/03/18 10/03/18 05:18 05:18 WBC 9.6 RBC 3.57 L Hgb 9.4 L D Hct 29.4 L MCV 82 MCH 26.3 L MCHC 32.0 RDW 18.8 H Plt Count 179 Seg Neutrophils % 66.1 Lymphocytes % 19.0 Monocytes % 12.5 Eosinophils % 1.8 Basophils % 0.6 Absolute Neutrophils 6.4 Absolute Lymphocytes 1.8 Absolute Monocytes 1.2 Absolute Eosinophils 0.2 Absolute Basophils 0.1 Sodium 136.9 L Potassium 4.3 Chloride 96 L Carbon Dioxide 19 L Anion Gap 22 H BUN 35 H Creatinine 8.13 H Est GFR ( Amer) 6 L Est GFR (Non-Af Amer) 5 L Glucose 127 H Calcium 10.1 09/16/18 09/17/18 09/17/18 19:25 20:08 20:08 Creatine Kinase 24 L CK-MB (CK-2) 1.23 Troponin I 0.020 0.017 09/18/18 09/18/18 09/18/18 02:20 02:20 09:00 Creatine Kinase 21 L 26 L CK-MB (CK-2) 1.28 Troponin I 0.018 09/18/18 09:00 Creatine Kinase CK-MB (CK-2) 1.12 Troponin I 0.024 Impressions: Chest X-Ray 09/16/18 19:19 IMPRESSION: 1. No acute pulmonary findings. Assessment and Plan - Diagnosis (1) Abdominal wall abscess Is this a current diagnosis for this admission?: Yes Plan: Status post repeat extensive debridement. (2) Type 2 diabetes mellitus Is this a current diagnosis for this admission?: Yes Plan: Continue current regimen. (3) Hypertension Qualifiers: Hypertension type: essential hypertension Qualified Code(s): I10 - Essential (primary) hypertension Is this a current diagnosis for this admission?: Yes Plan: Continue current medication (4) Morbid obesity Is this a current diagnosis for this admission?: Yes Plan: Lifestyle modification advised. (5) Obstructive sleep apnea Is this a current diagnosis for this admission?: Yes Plan: Continue CPAP (6) Calciphylaxis Is this a current diagnosis for this admission?: Yes Plan: Related to her end-stage renal disease and uncontrolled diabetes mellitus
--- NOTE | 2018-10-03 13:43 | PDOC PROGRESS REPORT ---
Subjective Progress Note for:: 10/03/18 Subjective:: I seen the patient during dialysis at around 8:20 AM. Patient complains of pain on her right lower quadrant wound. She underwent another excisional debridement yesterday by Dr. Ingram. She continues to receive IV antibiotics and sodium thiosulfate. Currently she just received a dose of oxycodone. Aside from the pain she does not have any other complaints. She is tolerating dialysis so far. Reason For Visit: ABDOMINAL WALL INFECTION Physical Exam Vital Signs: Temp Pulse Resp BP Pulse Ox 97.0 F 78 18 140/79 H 97 10/03/18 07:24 10/03/18 07:24 10/03/18 07:24 10/03/18 07:24 10/03/18 07:24 Intake & Output 10/02/18 10/03/18 10/04/18 06:59 06:59 06:59 Intake Total 900 900 Output Total 3000 250 Balance -2100 650 Weight 135.2 kg 137.8 kg Vitals during dialysis: Blood pressure 125/68, heart rate of 73, blood flow rate of 350 mL/min and dialysate flow rate of 600 mL/min. Exam: General appearance: PRESENT: no acute distress, cooperative, well-developed, well-nourished Head exam: PRESENT: atraumatic, normocephalic Eye exam: PRESENT: conjunctiva slightly pale, PERRLA. ABSENT: scleral icterus Neck exam: ABSENT: JVD Respiratory exam: PRESENT: Diminished breath sounds. ABSENT: crackles, rales, rhonchi, unlabored, wheezes Cardiovascular exam: PRESENT: Regular rate rhythm -+S1, +S2. ABSENT: diastolic murmur, systolic murmur GI/Abdominal exam: PRESENT: normal bowel sounds, soft. Right lower quadrant open wound with wet-to-dry dressing and mild foul smell. ABSENT: guarding, mass, tenderness Extremities exam: ABSENT: No edema Neurological exam: PRESENT: alert, awake, oriented to person, place and time. Skin exam: PRESENT: dry, warm, Cardiovascular exam: PRESENT: +S1, +S2 GI/Abdominal exam: PRESENT: normal bowel sounds, soft. ABSENT: organomegaly, tenderness Results Laboratory Results: 10/03/18 05:18 10/03/18 05:18 10/03/18 10/03/18 05:18 05:18 WBC 9.6 RBC 3.57 L Hgb 9.4 L D Hct 29.4 L MCV 82 MCH 26.3 L MCHC 32.0 RDW 18.8 H Plt Count 179 Seg Neutrophils % 66.1 Lymphocytes % 19.0 Monocytes % 12.5 Eosinophils % 1.8 Basophils % 0.6 Absolute Neutrophils 6.4 Absolute Lymphocytes 1.8 Absolute Monocytes 1.2 Absolute Eosinophils 0.2 Absolute Basophils 0.1 Sodium 136.9 L Potassium 4.3 Chloride 96 L Carbon Dioxide 19 L Anion Gap 22 H BUN 35 H Creatinine 8.13 H Est GFR ( Amer) 6 L Est GFR (Non-Af Amer) 5 L Glucose 127 H Calcium 10.1 09/16/18 09/17/18 09/17/18 19:25 20:08 20:08 Creatine Kinase 24 L CK-MB (CK-2) 1.23 Troponin I 0.020 0.017 09/18/18 09/18/18 09/18/18 02:20 02:20 09:00 Creatine Kinase 21 L 26 L CK-MB (CK-2) 1.28 Troponin I 0.018 09/18/18 09:00 Creatine Kinase CK-MB (CK-2) 1.12 Troponin I 0.024 Impressions: Chest X-Ray 09/16/18 19:19 IMPRESSION: 1. No acute pulmonary findings. Assessment & Plan - Diagnosis (1) Calciphylaxis Is this a current diagnosis for this admission?: Yes Plan: Present on her right lower quadrant abdominal wall. Patient is currently now on sodium thiosulfate being given at 25 g 3 times a week post hemodialysis treatment started on September 11, 2018. This needs to be given for at least 3 months. Generally has poor prognosis and may lead to on occasions. There is really no proven good treatment for calciphylaxis unfortunately. Sodium thiosulfate is the one medication being used to treat it which patient may or may not respond. Parathyroidectomy has been used for treatment, however there was not any good study to support its use. Patient's phosphorus is currently co ntrolled with sevelamer. Patient is also on calcimimetics which she is reported to be better than parathyroidectomy for treatment. Continue current management. (2) ESRD (end stage renal disease) on dialysis Is this a current diagnosis for this admission?: Yes Plan: We will do dialysis today for 3 hours, using the patient's PermCath, with 2 potassium bath, blood flow rate of 350 mL per minute, dialysate flow rate of 600 mL per minute, ultrafiltration 2 to 3 L as tolerated, no heparin and Procrit with 40,000 units during dialysis intravenously. Patient was monitored throughout dialysis treatment. (3) Infected abdominal wound Is this a current diagnosis for this admission?: Yes Plan: Status post debridement by surgery on September 16, September 25 and October 02. Original wound culture on 09/16/2018 was polymicrobial. Patient had 1 week of IV cefepime, 2 days of IV meropenem and per infectious disease recommendation currently now on Flagyl since 09/27/2018. Also started on IV cefepime on 10/01/2018 the white count has been coming down. Awaiting further surgery recommendations for wound management and clearance when the patient can be safely discharged home. (4) Abdominal wall abscess Is this a current diagnosis for this admission?: Yes (5) Abdominal pain Qualifiers: Abdominal location: right lower quadrant Qualified Code(s): R10.31 - Right lower quadrant pain Is this a current diagnosis for this admission?: Yes Plan: On oxycodone as needed. (6) Abdominal wall mass of right lower quadrant Is this a current diagnosis for this admission?: Yes Plan: This is due to calciphylaxis which has progressed to an abscess. (7) Anemia in chronic kidney disease (CKD) Qualifiers: Chronic kidney disease stage: unspecified stage Qualified Code(s): N18.9 - Chronic kidney disease, unspecified; D63.1 - Anemia in chronic kidney disease Is this a current diagnosis for this admission?: Yes Plan: Status post 2 units of packed RBC transfusion during dialysis treatment on 10/01. We will also give Procrit 40,000 units IV during dialysis. (8) Hypertension Qualifiers: Hypertension type: essential hypertension Qualified Code(s): I10 - Essential (primary) hypertension Is this a current diagnosis for this admission?: Yes Plan: This is labile and affected by dialysis treatment and her pain. Continue current blood pressure medications. (9) Type 2 diabetes mellitus Is this a current diagnosis for this admission?: Yes (10) Jerky body movements Is this a current diagnosis for this admission?: Yes Plan: Drug-induced likely secondary to Reglan and Lyrica. Resolved. (11) Hyperphosphatemia Is this a current diagnosis for this admission?: Yes Plan: On sevelamer. Most recent phosphorus level is 4.6. (12) Secondary hyperparathyroidism (of renal origin) Is this a current diagnosis for this admission?: Yes Plan: On calcitriol and cinacalcet. (13) Breast pain, left Is this a current diagnosis for this admission?: Yes Plan: Breast ultrasound pending. (14) Morbid obesity with BMI of 40.0-44.9, adult Is this a current diagnosis for this admission?: Yes - Time Time with patient: 15-25 minutes
[2018-10-03] MEDS: SEVELAMER HCL 800 MG TABLET PO SCH ×3 (14:58→18:08)
[2018-10-03] MEDS: INSULIN LISPRO 100 UNIT/ML 3 ML VIAL SUBCUT SCH ×3 (14:58→21:19)
[2018-10-03] MEDS: FLUTICASONE/VILANTEROL 200-25 MCG/DOSE IH SCH (14:59)
[2018-10-03] MEDS: CARVEDILOL 12.5 MG TABLET PO SCH ×2 (14:59→21:18)
[2018-10-03] MEDS: ENOXAPARIN SODIUM INJ 30 MG/0.3 ML DISP.SYRIN SUBCUT SCH (15:00)
[2018-10-03] MEDS: CALCITRIOL 0.25 MCG CAPSULE PO SCH (15:00)
[2018-10-03] MEDS: METRONIDAZOLE 500 MG TABLET PO SCH ×2 (15:00→21:19)
[2018-10-03] MEDS: COLLAGENASE CLOSTRIDIUM HIST. OINT 30 GM TP SCH ×2 (18:08→21:25)
[2018-10-03] MEDS: FOLIC ACID/VITAMIN B COMP W-C CAPSULE PO SCH (18:09)
[2018-10-03] MEDS: CEFEPIME HCL 2 GM in DEXTROSE 5%-WATER 50 ML IV SCH (18:13)
[2018-10-03] MEDS: CINACALCET HCL 30 MG TABLET PO SCH (18:13)
[2018-10-03] MEDS: INSULIN GLARGINE,HUM.REC.ANLOG 1,000 UNIT/10 ML VIAL SUBCUT SCH (21:19)
[2018-10-04] MEDS ORDERED: NORMAL SALINE 1000 ML 1,000 ML IV PRN (00:24)
[2018-10-04] MEDS ORDERED: NORMAL SALINE 250 ML IV ONE (00:30)
[2018-10-04] MEDS: OXYCODONE HCL IR 5 MG TABLET PO PRN ×3 (00:32→08:21)
[2018-10-04] MEDS: HYDRALAZINE HCL 50 MG TABLET PO SCH ×3 (07:01→21:50)
[2018-10-04] MEDS: SEVELAMER HCL 800 MG TABLET PO SCH ×3 (08:21→17:08)
[2018-10-04] MEDS: INSULIN LISPRO 100 UNIT/ML 3 ML VIAL SUBCUT SCH ×4 (08:21→21:51)
[2018-10-04] MEDS: ENOXAPARIN SODIUM INJ 30 MG/0.3 ML DISP.SYRIN SUBCUT SCH (09:23)
[2018-10-04] MEDS: CARVEDILOL 12.5 MG TABLET PO SCH ×2 (09:23→21:55)
[2018-10-04] MEDS: CALCITRIOL 0.25 MCG CAPSULE PO SCH (09:23)
[2018-10-04] MEDS: METRONIDAZOLE 500 MG TABLET PO SCH (09:23)
[2018-10-04] MEDS: FLUTICASONE/VILANTEROL 200-25 MCG/DOSE IH SCH (09:24)
--- NOTE | 2018-10-04 12:53 | PDOC PROGRESS REPORT ---
Subjective Progress Note for:: 10/04/18 Subjective:: JASPREET STAFFORD is a 52 year old female with a partial past medical history of renal replacement therapy for end-stage renal failure formally on hemodialysis currently on peritoneal dialysis. Complicated by anemia, diastolic heart failure, obstructive sleep apnea, obesity, asthma, insulin-dependent diabetes, severe medication and lifestyle noncompliance. Patient was in transfusion clinic receiving transfusion of packed red blood cells but was noted disturbing an abdominal wall debridement site for calciphylaxis. She is seen in the emergency room found to have leukocytosis and referred to surgery for admission. Patient is awake and alert denying complaints, unaware of current medication regiment. 09/30/2018: Patient seen sitting up in bed and enjoying her lunch. She is awake alert oriented. She is not in pain or distress. 10/01/2018: No adverse events overnight. Patient's hemoglobin is 7. I will defer management of her anemia to Dr. 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 10/02/2018: This morning patient taken to the OR by Dr. Persaud who perfor med for the second time extensive debridement of large abdominal wound. He removed necrotic fat tissue. Patient tolerated the procedure and brought to the floor. 10/03/2018: Patient seen resting in bed comfortably. She has Port-A-Cath on the right chest. Dr. Pichardo states "Will start wet to dry dressing today and possibly start wound vac tomorrow". Patient does not have new complaint. 10/04/2018: No new complaint. Her wound VAC has not been started. Reason For Visit: ABDOMINAL WALL INFECTION Physical Exam Vital Signs: Temp Pulse Resp BP Pulse Ox 98.1 F 81 18 102/50 L 96 10/04/18 11:20 10/04/18 11:20 10/04/18 11:20 10/04/18 11:20 10/04/18 11:20 Intake & Output 10/03/18 10/04/18 10/05/18 06:59 06:59 06:59 Intake Total 900 1030 240 Output Total 250 2500 0 Balance 650 -1470 240 Weight 137.8 kg 135.2 kg General appearance: PRESENT: no acute distress Neurological exam: PRESENT: alert, altered, oriented to person, oriented to place, oriented to time, oriented to situation Results Laboratory Results: 10/03/18 05:18 10/03/18 05:18 09/16/18 09/17/18 09/17/18 19:25 20:08 20:08 Creatine Kinase 24 L CK-MB (CK-2) 1.23 Troponin I 0.020 0.017 09/18/18 09/18/18 09/18/18 02:20 02:20 09:00 Creatine Kinase 21 L 26 L CK-MB (CK-2) 1.28 Troponin I 0.018 09/18/18 09:00 Creatine Kinase CK-MB (CK-2) 1.12 Troponin I 0.024 Impressions: Chest X-Ray 09/16/18 19:19 IMPRESSION: 1. No acute pulmonary findings. Assessment and Plan - Diagnosis (1) Abdominal wall abscess Is this a current diagnosis for this admission?: Yes Plan: Status post repeat extensive debridement. (2) Type 2 diabetes mellitus Is this a current diagnosis for this admission?: Yes Plan: Continue current regimen. (3) Hypertension Qualifiers: Hypertension type: essential hypertension Qualified Code(s): I10 - Essential (primary) hypertension Is this a current diagnosis for this admission?: Yes Plan: Continue current medication (4) Morbid obesity Is this a current diagnosis for this admission?: Yes Plan: Lifestyle modification advised. (5) Obstructive sleep apnea Is this a current diagnosis for this admission?: Yes Plan: Continue CPAP (6) Calciphylaxis Is this a current diagnosis for this admission?: Yes Plan: Related to her end-stage renal disease and uncontrolled diabetes mellitus
[2018-10-04] MEDS: KETOROLAC TROMETHAMINE INJ/PF 30 MG/1 ML SDV IV PRN (13:45)
[2018-10-04] MEDS: COLLAGENASE CLOSTRIDIUM HIST. OINT 30 GM TP SCH ×2 (13:46→21:54)
[2018-10-04] MEDS: FOLIC ACID/VITAMIN B COMP W-C CAPSULE PO SCH (17:07)
[2018-10-04] MEDS: CINACALCET HCL 30 MG TABLET PO SCH (17:08)
--- NOTE | 2018-10-04 20:54 | PDOC PROGRESS REPORT ---
Subjective Progress Note for:: 10/04/18 Reason For Visit: ABDOMINAL WALL INFECTION Physical Exam Vital Signs: Temp Pulse Resp BP Pulse Ox 98.2 F 75 20 128/55 H 98 10/04/18 20:03 10/04/18 20:03 10/04/18 20:03 10/04/18 20:03 10/04/18 20:03 Intake & Output 10/03/18 10/04/18 10/05/18 06:59 06:59 06:59 Intake Total 900 1030 462 Output Total 250 2500 0 Balance 650 -1470 462 Weight 137.8 kg 135.2 kg Exam: wound vac in place. Comfortable Results Laboratory Results: 10/03/18 05:18 10/03/18 05:18 09/16/18 09/17/18 09/17/18 19:25 20:08 20:08 Creatine Kinase 24 L CK-MB (CK-2) 1.23 Troponin I 0.020 0.017 09/18/18 09/18/18 09/18/18 02:20 02:20 09:00 Creatine Kinase 21 L 26 L CK-MB (CK-2) 1.28 Troponin I 0.018 09/18/18 09:00 Creatine Kinase CK-MB (CK-2) 1.12 Troponin I 0.024 Impressions: Chest X-Ray 09/16/18 19:19 IMPRESSION: 1. No acute pulmonary findings. Assessment & Plan - Diagnosis (1) Abscess of left buttock Is this a current diagnosis for this admission?: Yes (2) Abdominal wall abscess Is this a current diagnosis for this admission?: Yes - Time Time Spent with patient: 15-24 minutes - Inpatient Certification Medical Necessity: Significant Comorbidiites Make Outpatient Treatment Too Risky, Need Close Monitoring Due to Risk of Patient Decompensation, Need for IV Antibiotics - Plan Summary Plan Summary: Wound vac in place. Will need continued wound vac at home or Rehab facility for next 2-3 months. Will need follow up at the wound care center. Will follow prn. Call for questions
[2018-10-04] MEDS: INSULIN GLARGINE,HUM.REC.ANLOG 1,000 UNIT/10 ML VIAL SUBCUT SCH (21:54)
[2018-10-05] MEDS: KETOROLAC TROMETHAMINE INJ/PF 30 MG/1 ML SDV IV PRN (00:43)
[2018-10-05] MEDS: HYDRALAZINE HCL 50 MG TABLET PO SCH ×3 (06:06→22:42)
[2018-10-05] MEDS: INSULIN LISPRO 100 UNIT/ML 3 ML VIAL SUBCUT SCH ×4 (09:04→22:34)
[2018-10-05] MEDS: SEVELAMER HCL 800 MG TABLET PO SCH ×3 (09:25→16:08)
[2018-10-05] MEDS: CALCITRIOL 0.25 MCG CAPSULE PO SCH (09:25)
[2018-10-05] MEDS: CARVEDILOL 12.5 MG TABLET PO SCH ×2 (09:25→22:42)
[2018-10-05] MEDS: ENOXAPARIN SODIUM INJ 30 MG/0.3 ML DISP.SYRIN SUBCUT SCH (09:26)
[2018-10-05] MEDS: FLUTICASONE/VILANTEROL 200-25 MCG/DOSE IH SCH (09:26)
--- NOTE | 2018-10-05 12:55 | PDOC PROGRESS REPORT ---
Subjective Progress Note for:: 10/05/18 Subjective:: JASPREET STAFFORD is a 52 year old female with a partial past medical history of renal replacement therapy for end-stage renal failure formally on hemodialysis currently on peritoneal dialysis. Complicated by anemia, diastolic heart failure, obstructive sleep apnea, obesity, asthma, insulin-dependent diabetes, severe medication and lifestyle noncompliance. Patient was in transfusion clinic receiving transfusion of packed red blood cells but was noted disturbing an abdominal wall debridement site for calciphylaxis. She is seen in the emergency room found to have leukocytosis and referred to surgery for admission. Patient is awake and alert denying complaints, unaware of current medication regiment. 09/30/2018: Patient seen sitting up in bed and enjoying her lunch. She is awake alert oriented. She is not in pain or distress. 10/01/2018: No adverse events overnight. Patient's hemoglobin is 7. I will defer management of her anemia to Dr. 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 10/02/2018: This morning patient taken to the OR by Dr. Persaud who perfor med for the second time extensive debridement of large abdominal wound. He removed necrotic fat tissue. Patient tolerated the procedure and brought to the floor. 10/03/2018: Patient seen resting in bed comfortably. She has Port-A-Cath on the right chest. Dr. Pichardo states "Will start wet to dry dressing today and possibly start wound vac tomorrow". Patient does not have new complaint. 10/04/2018: No new complaint. Her wound VAC has not been started. 10/05/2018: Patient seen sitting up in bed. Patient cleared from the surgical side. If she remains stable she is potential discharge for tomorrow. Reason For Visit: ABDOMINAL WALL INFECTION Physical Exam Vital Signs: Temp Pulse Resp BP Pulse Ox 97.9 F 76 16 136/79 H 96 10/05/18 12:10 10/05/18 12:10 10/05/18 12:10 10/05/18 12:10 10/05/18 12:10 Intake & Output 10/04/18 10/05/18 10/06/18 06:59 06:59 06:59 Intake Total 1030 462 100 Output Total 2500 0 0 Balance -1470 462 100 Weight 135.2 kg 137.9 kg General appearance: PRESENT: no acute distress Neck exam: ABSENT: carotid bruit, JVD, lymphadenopathy, thyromegaly Respiratory exam: PRESENT: clear to auscultation shira. ABSENT: rales, rhonchi, wheezes Neurological exam: PRESENT: alert, awake Results Laboratory Results: 10/03/18 05:18 10/03/18 05:18 09/16/18 09/17/18 09/17/18 19:25 20:08 20:08 Creatine Kinase 24 L CK-MB (CK-2) 1.23 Troponin I 0.020 0.017 09/18/18 09/18/18 09/18/18 02:20 02:20 09:00 Creatine Kinase 21 L 26 L CK-MB (CK-2) 1.28 Troponin I 0.018 09/18/18 09:00 Creatine Kinase CK-MB (CK-2) 1.12 Troponin I 0.024 Impressions: Chest X-Ray 09/16/18 19:19 IMPRESSION: 1. No acute pulmonary findings. Assessment and Plan - Diagnosis (1) Abdominal wall abscess Is this a current diagnosis for this admission?: Yes Plan: She has been started on wound VAC. And Dr. Pichardo recommended wound VAC has to remain for 2 to 3 weeks (2) Type 2 diabetes mellitus Is this a current diagnosis for this admission?: Yes Plan: Continue current regimen. (3) Hypertension Qualifiers: Hypertension type: essential hypertension Qualified Code(s): I10 - Essential (primary) hypertension Is this a current diagnosis for this admission?: Yes Plan: Continue current medication (4) Morbid obesity Is this a current diagnosis for this admission?: Yes Plan: Lifestyle modification advised. (5) Obstructive sleep apnea Is this a current diagnosis for this admission?: Yes Plan: Continue CPAP (6) Calciphylaxis Is this a current diagnosis for this admission?: Yes Plan: Related to her end-stage renal disease and uncontrolled diabetes mellitus
[2018-10-05] MEDS: OXYCODONE-ACETAMINOPHEN 5-325 MG TABLET PO PRN (14:52)
[2018-10-05] MEDS: FOLIC ACID/VITAMIN B COMP W-C CAPSULE PO SCH (16:08)
[2018-10-05] MEDS: CINACALCET HCL 30 MG TABLET PO SCH (16:08)
[2018-10-05] MEDS: INSULIN GLARGINE,HUM.REC.ANLOG 1,000 UNIT/10 ML VIAL SUBCUT SCH (22:43)
[2018-10-06] MEDS: OXYCODONE-ACETAMINOPHEN 5-325 MG TABLET PO PRN ×3 (01:24→22:51)
[2018-10-06] MEDS ORDERED: EPOETIN ALFA INJ 20000 UNIT/1 ML VIAL (RENAL) IV PRN (05:00)
[2018-10-06] MEDS ORDERED: EPOETIN ALFA-EPBX 20,000 UNITS (ESRD) in SYRINGE IV PRN (05:00)
[2018-10-06] MEDS ORDERED: NORMAL SALINE 1000 ML 1,000 ML IV PRN (05:00)
[2018-10-06] MEDS: HYDRALAZINE HCL 50 MG TABLET PO SCH ×3 (05:23→22:37)
[2018-10-06 05:56] LABS: ABSOLUTE BASOPHILS # (AUTO) 0.1 10^3/uL (0.0-0.2); ABSOLUTE EOSINOPHILS # (AUTO) 0.2 10^3/uL (0.0-0.6); ABSOLUTE LYMPHOCYTES (AUTO) 2.5 10^3/uL (0.5-4.7); ABSOLUTE MONOCYTES (AUTO) 1.3 10^3/uL (0.1-1.4); ABSOLUTE NEUT (AUTO) 6.7 10^3/uL (1.7-8.2); BASOPHILS % (AUTO) 1.3 % (0-2); EOSINOPHILS % (AUTO) 2.1 % (0-6); HEMATOCRIT 26.6 % (36.0-47.0); HEMOGLOBIN 8.6 g/dL (12.0-15.5); LYMPHOCYTES % (AUTO) 23.1 % (13-45); MEAN CORPUSCULAR HEMOGLOBIN 26.6 pg (27.0-33.4); MEAN CORPUSCULAR HGB CONC 32.3 g/dL (32.0-36.0); MEAN CORPUSCULAR VOLUME 82 fl (80-97); MONOCYTES % (AUTO) 11.8 % (3-13); PLATELET COUNT 188 10^3/uL (150-450); RED BLOOD COUNT 3.23 10^6/uL (3.72-5.28); RED CELL DISTRIBUTION WIDTH 18.7 % (11.5-14.0); SEGMENTED NEUTROPHILS % (AUTO) 61.7 % (42-78); TOTAL CELLS COUNTED % (AUTO) 100 %; WHITE BLOOD COUNT 10.8 10^3/uL (4.0-10.5)
[2018-10-06 06:16] LABS: BLOOD UREA NITROGEN 38 mg/dL (7-20); CALCIUM 10.3 mg/dL (8.4-10.2); PHOSPHORUS 4.8 mg/dL (2.5-4.5); POTASSIUM 3.9 mmol/L (3.6-5.0)
[2018-10-06 06:22] LABS: CARBON DIOXIDE 21 mmol/L (22-30); CHLORIDE 94 mmol/L (98-107)
[2018-10-06 06:24] LABS: ANISOCYTOSIS 2+; HYPOCHROMASIA 2+; STOMATOCYTES 1+
[2018-10-06 06:27] LABS: PLATELET COMMENT ADEQUATE
[2018-10-06 06:29] LABS: ANION GAP 22 (5-19)
[2018-10-06 06:30] LABS: GLUCOSE 33 mg/dL (75-110)
[2018-10-06] MEDS: DEXTROSE 40% GEL 15 GM TUBE PO PRN ×2 (06:36→07:16)
[2018-10-06] MEDS: DEXTROSE 50%-WATER 25 GM/50 ML DISP.SYRIN IV PRN (07:38)
[2018-10-06] MEDS: INSULIN LISPRO 100 UNIT/ML 3 ML VIAL SUBCUT SCH ×4 (08:54→22:37)
[2018-10-06] MEDS: SEVELAMER HCL 800 MG TABLET PO SCH ×3 (08:55→17:43)
--- NOTE | 2018-10-06 09:27 | PDOC PROGRESS REPORT ---
Subjective Progress Note for:: 10/06/18 Subjective:: I am seeing the patient during dialysis this morning. She was hypoglycemic with blood sugar of 53 in the floor prior to coming to dialysis so they had to give her D50/50 and now it is 108. She is awake but still little bit sleepy but answers questions. She said her right lower quadrant wound is a little bit sore but she rated it again is 5/5. It seems to be comfortable though. She still complaining of left breast pain and fortunately the breast ultrasound that was done in September 30 has not been read yet. Currently she is tolerating dialysis without any problems. Her vitals are being monitored continuously. Reason For Visit: ABDOMINAL WALL INFECTION Physical Exam Vital Signs: Temp Pulse Resp BP Pulse Ox 98.2 F 60 16 101/54 L 94 10/06/18 04:23 10/06/18 07:44 10/06/18 07:44 10/06/18 07:44 10/06/18 07:44 Intake & Output 10/05/18 10/06/18 10/07/18 06:59 06:59 06:59 Intake Total 462 322 Output Total 0 0 Balance 462 322 Weight 137.9 kg 135.9 kg Vitals during dialysis: Blood pressure 147/86, heart rate of 63, blood flow rate of 350 mL/min and dialysate flow rate of 600 mL/min. Exam: General appearance: PRESENT: no acute distress, cooperative, well-developed, well-nourished Head exam: PRESENT: atraumatic, normocephalic Eye exam: PRESENT: conjunctiva pale, PERRLA. ABSENT: scleral icterus Neck exam: ABSENT: JVD Respiratory exam: PRESENT: Diminished breath sounds. ABSENT: crackles, rales, rhonchi, unlabored, wheezes Cardiovascular exam: PRESENT: Regular rate rhythm -+S1, +S2. ABSENT: diastolic murmur, systolic murmur GI/Abdominal exam: PRESENT: normal bowel sounds, soft. Right lower quadrant abdominal wound VAC in place with serosanguineous drainage coming out of the suction. ABSENT: guarding, mass, tenderness Extremities exam: ABSENT: No edema Neurological exam: PRESENT: Sleepy, oriented to person, place and time. Skin exam: PRESENT: dry, warm, Cardiovascular exam: PRESENT: +S1, +S2 GI/Abdominal exam: PRESENT: normal bowel sounds, soft. ABSENT: organomegaly, tenderness Results Laboratory Results: 10/06/18 05:18 10/06/18 05:18 10/06/18 10/06/18 05:18 05:18 WBC 10.8 H RBC 3.23 L Hgb 8.6 L Hct 26.6 L MCV 82 MCH 26.6 L MCHC 32.3 RDW 18.7 H Plt Count 188 Seg Neutrophils % 61.7 Lymphocytes % 23.1 Monocytes % 11.8 Eosinophils % 2.1 Basophils % 1.3 Absolute Neutrophils 6.7 Absolute Lymphocytes 2.5 Absolute Monocytes 1.3 Absolute Eosinophils 0.2 Absolute Basophils 0.1 Sodium 136.5 L Potassium 3.9 Chloride 94 L Carbon Dioxide 21 L Anion Gap 22 H BUN 38 H Creatinine 8.95 H Est GFR ( Amer) 6 L Est GFR (Non-Af Amer) 5 L Glucose 33 L* Calcium 10.3 H Phosphorus 4.8 H 09/16/18 09/17/18 09/17/18 19:25 20:08 20:08 Creatine Kinase 24 L CK-MB (CK-2) 1.23 Troponin I 0.020 0.017 09/18/18 09/18/18 09/18/18 02:20 02:20 09:00 Creatine Kinase 21 L 26 L CK-MB (CK-2) 1.28 Troponin I 0.018 09/18/18 09:00 Creatine Kinase CK-MB (CK-2) 1.12 Troponin I 0.024 Impressions: Chest X-Ray 09/16/18 19:19 IMPRESSION: 1. No acute pulmonary findings. Assessment & Plan - Diagnosis (1) Calciphylaxis Is this a current diagnosis for this admission?: Yes Plan: Present on her right lower quadrant abdominal wall. Patient is currently now on sodium thiosulfate being given at 25 g 3 times a week post hemodialysis treatment started on September 11, 2018. This needs to be given for at least 3 months. Generally has poor prognosis and may lead to on occasions. There is really no proven good treatment for calciphylaxis unfortunately. Sodium thiosulfate is the one medication being used to treat it which patient may or may not respond. Parathyroidectomy has been used for treatment, however there was not any good study to support its use. Patient's phosphorus is currently controlled with sevelamer. Patient is also on calcimimetics which she is reported to be better than parathyroidectomy for treatment. Continue current management. (2) ESRD (end stage renal disease) on dialysis Is this a current diagnosis for this admission?: Yes Plan: We will do dialysis today for 3 hours, using the patient's right IJ PermCath, with 3 potassium bath, blood flow rate of 350 mL per minute, dialysate flow rate of 800 mL per minute, ultrafiltration 2-3L as tolerated, no heparin and Procrit with 20,000 units during dialysis intravenously. Patient will be monitored throughout dialysis treatment. We will set her dry weight at home 134 to 135 kg. Note that patient came in with a weight of 154 kg upon admission. (3) Infected abdominal wound Is this a current diagnosis for this admission?: Yes Plan: Status post debridement by surgery on September 16, September 25 and October 02. Original wound culture on 09/16/2018 was polymicrobial. Patient had 1 week of IV cefepime, 2 days of IV meropenem and per infectious disease recommendation currently now on Flagyl since 09/27/2018. Also started on IV cefepime on 10/01/2018 the white count has been coming down. Patient already had wound VAC and surgery recommends that patient to be followed up at one clinic. For better care it was recommended that the patient goes to acute rehab so that she can be monitored toward. Currently she is awaiting p lacement. (4) Abdominal wall abscess Is this a current diagnosis for this admission?: Yes (5) Abdominal pain Qualifiers: Abdominal location: right lower quadrant Qualified Code(s): R10.31 - Right lower quadrant pain Is this a current diagnosis for this admission?: Yes Plan: On oxycodone as needed. It seems to be clinically controlled. She cannot have Lyrica as it affects her mental status. (6) Abdominal wall mass of right lower quadrant Is this a current diagnosis for this admission?: Yes Plan: This is due to calciphylaxis which has progressed to an abscess. (7) Anemia in chronic kidney disease (CKD) Qualifiers: Chronic kidney disease stage: unspecified stage Qualified Code(s): N18.9 - Chronic kidney disease, unspecified; D63.1 - Anemia in chronic kidney disease Is this a current diagnosis for this admission?: Yes Plan: Status post 2 units of packed RBC transfusion during dialysis treatment on 10/01. We will also give Procrit IV during dialysis. (8) Hypertension Qualifiers: Hypertension type: essential hypertension Qualified Code(s): I10 - Esse ntial (primary) hypertension Is this a current diagnosis for this admission?: Yes Plan: This is labile and affected by dialysis treatment and her pain. Continue current blood pressure medications. (9) Type 2 diabetes mellitus Is this a current diagnosis for this admission?: Yes (10) Jerky body movements Is this a current diagnosis for this admission?: Yes Plan: Drug-induced likely secondary to Reglan and Lyrica. Resolved. (11) Hyperphosphatemia Is this a current diagnosis for this admission?: Yes Plan: On sevelamer. Most recent phosphorus level is 4.8. (12) Secondary hyperparathyroidism (of renal origin) Is this a current diagnosis for this admission?: Yes Plan: On calcitriol and cinacalcet. (13) Breast pain, left Is this a current diagnosis for this admission?: Yes Plan: Breast ultrasound pending done on 09/30/2018. I spoke to Thomas the rn radiology to have her breast ultrasound read. (14) Morbid obesity with BMI of 40.0-44.9, adult Is this a current diagnosis for this admission?: Yes - Notes Notes: Discussed the case with Dr. Whatley. He is awaiting placement to rehab facility. He will also take care of the antibiotics and the plan is to discontinue it prior to discharge. Patient will continue to be on hemodialysis and to receive sodium thiosulfate during dialysis treatment for another couple months after discharge. - Time Time with patient: 15-25 minutes
--- NOTE | 2018-10-06 09:53 | RADIOLOGY REPORT (SQ) ---
EXAM DESCRIPTION: U/S BREAST UNILATERAL LIMITED COMPLETED DATE/TIME: 09/30/2018 10:22 am REASON FOR STUDY: LT BREAST MASS Z45.2 ENCOUNTER FOR ADJUSTMENT AND MANAGEMENT OF VAD N18.[address] AGE RENAL DISEASE COMPARISON: None TECHNIQUE: Static and Realtime grayscale interrogation of focal area(s) of concern in the left breas t(s) acquired. Selected color doppler/spectral images saved to PACS. LIMITATIONS: None. FINDINGS: Masses:No cystic or solid masses identified Architecture:No alteration of normal morphology. No skin thickening. No edema. Other: None. IMPRESSION: No suspicious findings detected by ultrasound. BIRAD: 1 Negative. RECOMMENDATION: RECOMMENDED FOLLOW-UP: Follow-up as clinically indicated. COMMENT: The [employer] (ACR) has developed recommendations for screening MRI of the breasts in certain patient populations, to be used in conjunction with mammography. Breast MRI s urveillance may be appropriate for women with more than 20% lifetime risk of developing breast cancer as determined by genetic testing, significant family history of the disease, or history of mantle r adiation for Hodgkins Disease. ACR Practice Guidelines 2008. TECHNICAL DOCUMENTATION: FINDING NUMBER: (1) ASSESSMENT: (1) JOB ID: [id number] [employer]- All Rights Reserved Reading location - IP/workstation name: [email or web address]
[2018-10-06] MEDS ORDERED: NORMAL SALINE IV SCH (10:00)
[2018-10-06] MEDS ORDERED: SODIUM THIOSULFATE IV SCH (10:00)
[2018-10-06] MEDS: FLUTICASONE/VILANTEROL 200-25 MCG/DOSE IH SCH (11:00)
[2018-10-06] MEDS: CARVEDILOL 12.5 MG TABLET PO SCH ×2 (11:00→22:37)
[2018-10-06] MEDS: CALCITRIOL 0.25 MCG CAPSULE PO SCH (11:01)
[2018-10-06] MEDS: ENOXAPARIN SODIUM INJ 30 MG/0.3 ML DISP.SYRIN SUBCUT SCH (11:01)
[2018-10-06] MEDS ORDERED: HEPARIN SOD (PORCINE) 1,000 UNIT/ML 10 ML VIAL IV PRN (11:58)
--- NOTE | 2018-10-06 14:53 | PDOC PROGRESS REPORT ---
Subjective Progress Note for:: 10/06/18 Subjective:: JASPREET STAFFORD is a 52 year old female with a partial past medical history of renal replacement therapy for end-stage renal failure formally on hemodialysis currently on peritoneal dialysis. Complicated by anemia, diastolic heart failure, obstructive sleep apnea, obesity, asthma, insulin-dependent diabetes, severe medication and lifestyle noncompliance. Patient was in transfusion clinic receiving transfusion of packed red blood cells but was noted disturbing an abdominal wall debridement site for calciphylaxis. She is seen in the emergency room found to have leukocytosis and referred to surgery for admission. Patient is awake and alert denying complaints, unaware of current medication regiment. 09/30/2018: Patient seen sitting up in bed and enjoying her lunch. She is awake alert oriented. She is not in pain or distress. 10/01/2018: No adverse events overnight. Patient's hemoglobin is 7. I will defer management of her anemia to Dr. Casper her primary senior java developer. 10/02/2018: This morning patient taken to the OR by Dr. Persaud who perfor med for the second time extensive debridement of large abdominal wound. He removed necrotic fat tissue. Patient tolerated the procedure and brought to the floor. 10/03/2018: Patient seen resting in bed comfortably. She has Port-A-Cath on the right chest. Dr. Pichardo states "Will start wet to dry dressing today and possibly start wound vac tomorrow". Patient does not have new complaint. 10/04/2018: No new complaint. Her wound VAC has not been started. 10/05/2018: Patient seen sitting up in bed. Patient cleared from the surgical side. If she remains stable she is potential discharge for tomorrow. 10/06/2018: Patient just arrived from hemodialysis. She is awake alert oriented. She completed 5 days of IV Flagyl and 7 days of cefepime. Wound VAC is in situ. She is awaiting placement to [facility]. Reason For Visit: ABDOMINAL WALL INFECTION Physical Exam Vital Signs: Temp Pulse Resp BP Pulse Ox 98.2 F 60 16 101/54 L 94 10/06/18 04:23 10/06/18 07:44 10/06/18 07:44 10/06/18 07:44 10/06/18 07:44 Intake & Output 10/05/18 10/06/18 10/07/18 06:59 06:59 06:59 Intake Total 462 322 250 Output Total 0 0 Balance 462 322 250 Weight 137.9 kg 135.9 kg General appearance: PRESENT: no acute distress Head exam: PRESENT: atraumatic Neck exam: ABSENT: carotid bruit, JVD, lymphadenopathy, thyromegaly Respiratory exam: PRESENT: clear to auscultation shira. ABSENT: rales, rhonchi, wheezes Cardiovascular exam: PRESENT: RRR. ABSENT: diastolic murmur, rubs, systolic murmur Neurological exam: PRESENT: alert, awake, oriented to person, oriented to place, oriented to time, oriented to situation Results Laboratory Results: 10/06/18 05:18 10/06/18 05:18 10/06/18 10/06/18 05:18 05:18 WBC 10.8 H RBC 3.23 L Hgb 8.6 L Hct 26.6 L MCV 82 MCH 26.6 L MCHC 32.3 RDW 18.7 H Plt Count 188 Seg Neutrophils % 61.7 Lymphocytes % 23.1 Monocytes % 11.8 Eosinophils % 2.1 Basophils % 1.3 Absolute Neutrophils 6.7 Absolute Lymphocytes 2.5 Absolute Monocytes 1.3 Absolute Eosinophils 0.2 Absolute Basophils 0.1 Sodium 136.5 L Potassium 3.9 Chloride 94 L Carbon Dioxide 21 L Anion Gap 22 H BUN 38 H Creatinine 8.95 H Est GFR ( Amer) 6 L Est GFR (Non-Af Amer) 5 L Glucose 33 L* Calcium 10.3 H Phosphorus 4.8 H 09/16/18 09/17/18 09/17/18 19:25 20:08 20:08 Creatine Kinase 24 L CK-MB (CK-2) 1.23 Troponin I 0.020 0.017 09/18/18 09/18/18 09/18/18 02:20 02:20 09:00 Creatine Kinase 21 L 26 L CK-MB (CK-2) 1.28 Troponin I 0.018 09/18/18 09:00 Creatine Kinase CK-MB (CK-2) 1.12 Troponin I 0.024 Impressions: Chest X-Ray 09/16/18 19:19 IMPRESSION: 1. No acute pulmonary findings. Breast Ultrasound 09/30/18 08:00 IMPRESSION: No suspicious findings detected by ultrasound. Assessment and Plan - Diagnosis (1) Abdominal wall abscess Is this a current diagnosis for this admission?: Yes Plan: She has been started on wound VAC. And Dr. Pichardo recommended wound VAC has to remain for 2 to 3 weeks (2) Type 2 diabetes mellitus Is this a current diagnosis for this admission?: Yes Plan: Continue current regimen. (3) Hypertension Qualifiers: Hypertension type: essential hypertension Qualified Code(s): I10 - Essential (primary) hypertension Is this a current diagnosis for this admission?: Yes Plan: Continue current medication (4) Morbid obesity Is this a current diagnosis for this admission?: Yes Plan: Lifestyle modification advised. (5) Obstructive sleep apnea Is this a current diagnosis for this admission?: Yes Plan: Continue CPAP (6) Calciphylaxis Is this a current diagnosis for this admission?: Yes Plan: Related to her end-stage renal disease and uncontrolled diabetes mellitus
[2018-10-06] MEDS: KETOROLAC TROMETHAMINE INJ/PF 30 MG/1 ML SDV IV PRN (17:44)
[2018-10-06] MEDS: FOLIC ACID/VITAMIN B COMP W-C CAPSULE PO SCH (17:44)
[2018-10-06] MEDS: CINACALCET HCL 30 MG TABLET PO SCH (17:44)
[2018-10-06] MEDS ORDERED: INSULIN GLARGINE,HUM.REC.ANLOG 1,000 UNIT/10 ML VIAL SUBCUT SCH (22:00)
[2018-10-07] MEDS: HYDRALAZINE HCL 50 MG TABLET PO SCH ×2 (05:25→13:50)
[2018-10-07] MEDS: OXYCODONE-ACETAMINOPHEN 5-325 MG TABLET PO PRN ×2 (05:25→13:53)
[2018-10-07] MEDS: INSULIN LISPRO 100 UNIT/ML 3 ML VIAL SUBCUT SCH ×2 (07:43→11:00)
[2018-10-07] MEDS: DEXTROSE 50%-WATER 25 GM/50 ML DISP.SYRIN IV PRN (07:50)
[2018-10-07] MEDS: ENOXAPARIN SODIUM INJ 30 MG/0.3 ML DISP.SYRIN SUBCUT SCH (09:22)
[2018-10-07] MEDS: SEVELAMER HCL 800 MG TABLET PO SCH ×2 (09:26→13:49)
[2018-10-07] MEDS: FLUTICASONE/VILANTEROL 200-25 MCG/DOSE IH SCH (09:26)
[2018-10-07] MEDS: CARVEDILOL 12.5 MG TABLET PO SCH (09:26)
[2018-10-07] MEDS: CALCITRIOL 0.25 MCG CAPSULE PO SCH (09:26)
[2018-10-07 13:47] VITALS: BP 94/67
--- NOTE | 2018-10-07 13:52 | PDOC TRANSFER SUMMARY ---
General - Admit/Disc Date/PCP Admission Date/Primary Care Provider: 09/16/18 20:53 JULIA GOMEZ PA-C Discharge Date: 10/07/18 - Discharge Diagnosis (1) Abdominal wall abscess Is this a current diagnosis for this admission?: Yes Summary: Patient was admitted to the hospital on 09/16/2018 with abdominal wall abscess patient was placed on IV antibiotics patient was taken to surgery who performed an extensive debridement of the large abdominal wound moving necrotic fat tissue. Patient completed 5 days of IV Flagyl and 7 days of cefepime. Patient is being discharged to [facility] to continue wound VAC and wet-to-dry dressings (2) Anemia Is this a current diagnosis for this admission?: Yes Summary: Patient's H&H is stable at 8.6 and 26.6 platelets stable at 188,000 (3) ESRD (end stage renal disease) on dialysis Is this a current diagnosis for this admission?: Yes Summary: Patient is on peritoneal dialysis stage renal disease patient's BUN on arrival was 74 most recent yesterday was 38 On arrival creatinine was 16.31 on discharge creatinine is 8.95 (4) Morbid obesity Is this a current diagnosis for this admission?: Yes Summary: Patient's weight is 135 kg at discharge (5) Type 2 diabetes mellitus Is this a current diagnosis for this admission?: Yes Summary: She is blood sugars are well controlled running around 100 - Additional Information Resuscitation Status: Full Code Discharge Diet: Diabetic Discharge Activity: Activity As Tolerated Prescriptions: Carvedilol [Coreg 12.5 mg Tablet] 25 mg PO Q12 #60 tablet Home Medications: Albuterol Sulfate [Ventolin Hfa 8 gm Mdi (1 Mdi/ER Disp)] 2 puff IH Q6HP PRN 09/17/18 Budesonide/Formoterol Fumarate [Symbicort HFA 160-4.5 mcg Inhaler 6 gm] 2 puff IH Q12 09/17/18 Collagenase Clostridium Hist. [Santyl Ointment 30 gm] 1 applic TP ASDIR PRN 09/17/18 Hydralazine HCl 100 mg PO TID 09/17/18 Lactulose [Constulose 10 gm/15 mL Oral Solution] 30 ml PO Q6H 09/17/18 Metoclopramide HCl 5 mg PO TID 09/17/18 Oxycodone HCl [Roxicodone] 5 mg PO BIDP PRN 09/17/18 Pregabalin [Lyrica 75 mg Capsule] 75 mg PO Q12 09/17/18 Sevelamer HCl [Renagel 800 mg Tablet] 2,400 mg PO ASDIR PRN 09/17/18 Tramadol HCl [Ultram 50 mg Tablet] 50 mg PO TIDP PRN 09/17/18 Carvedilol [Coreg 12.5 mg Tablet] 25 mg PO Q12 #60 tablet 10/07/18 Cinacalcet HCl [Sensipar 30 mg Tablet] 30 mg PO WSUPPER tablet 10/07/18 Enoxaparin Sodium [Lovenox Inj 30 mg/0.3 ml Disp.syrin] 30 mg SUBCUT DAILY disp.syrin 10/07/18 Epoetin Daniel-Epbx [Retacrit 10,000 Unit/ml Vial (Renal)] 20,000 unit IV .DIALYSIS PRN vial 10/07/18 Folic Acid/Vitamin B Comp W-C [Nephrocaps Multiple Vitamin Capsule] 1 cap PO ACSUPPER capsule 10/07/18 Insulin Glargine,Hum.rec.anlog [Lantus Insulin 100 Unit/1 ml 10 ml] 18 unit SUBCUT QHS unit 10/07/18 Ipratropium/Albuterol Sulfate [Duoneb 3 ml Ampul] 3 ml NEB RTQ8HP PRN vial.neb 10/07/18 Lactulose [Cephulac Syrup 20 gm/30 ml Udcup] 20 gm PO Q8HP PRN udc 10/07/18 Oxycodone HCl/Acetaminophen [Percocet 5-325 mg Tablet] 1 tab PO Q6HP PRN tablet 10/07/18 Sevelamer HCl [Renagel 800 mg Tablet] 1,600 mg PO MEALS tablet 10/07/18 History of Present Illness Admission Date/PCP: 09/16/18 20:53 JULIA GOMEZ PA-C Admission date 09/16/2018 History of Present Illness: JASPREET STAFFORD is a 52 year old female Patient was admitted to the hospital for wound drainage, patient had had debridement done at [facility] several weeks prior to this. The wound was left open for dressing changes however in the last several days the wound has started draining, necrotic patient is admitted to the hospital for a wound abscess. Patient was placed on IV antibiotics she has had 2 debridements performed and now has a wound VAC in place patient is being discharged to [facility] for continued wet to dry dressing changes as well as wound VAC. No antibiotics are indicated at this time. Patient's other comorbidities include diabetes hypertension morbid obesity and stage renal disease Physical Exam Vital Signs: Temp Pulse Resp BP Pulse Ox 98.1 F 74 18 129/79 H 95 10/07/18 03:08 10/07/18 07:00 10/07/18 03:08 10/07/18 03:08 10/07/18 12:04 Intake & Output 10/06/18 10/07/18 10/08/18 06:59 06:59 06:59 Intake Total 322 250 Output Total 0 1600 Balance 322 -1350 Weight 135.9 kg 134 kg General appearance: PRESENT: no acute distress, disheveled, well-developed, well-nourished Respiratory exam: PRESENT: clear to auscultation shira. ABSENT: rales, rhonchi, wheezes Cardiovascular exam: PRESENT: RRR. ABSENT: diastolic murmur, rubs, systolic murmur GI/Abdominal exam: PRESENT: soft, other - Patient is large, obese, has a pendulous abdomen drain coming from the right lower quadrant of the abdomen going to a wound VAC. There is no odor no purulent discharge Neurological exam: PRESENT: alert, awake, oriented to person, oriented to place, oriented to time, oriented to situation, CN II-XII grossly intact, other - Patient appears to be somewhat mentally delayed. ABSENT: motor sensory deficit Psychiatric exam: PRESENT: appropriate affect, normal mood, other - And answers questions appropriately. ABSENT: homicidal ideation, suicidal ideation Results Laboratory Results: 10/06/18 05:18 10/06/18 05:18 09/16/18 09/17/18 09/17/18 19:25 20:08 20:08 Creatine Kinase 24 L CK-MB (CK-2) 1.23 Troponin I 0.020 0.017 09/18/18 09/18/18 09/18/18 02:20 02:20 09:00 Creatine Kinase 21 L 26 L CK-MB (CK-2) 1.28 Troponin I 0.018 09/18/18 09:00 Creatine Kinase CK-MB (CK-2) 1.12 Troponin I 0.024 Impressions: Chest X-Ray 09/16/18 19:19 IMPRESSION: 1. No acute pulmonary findings. Breast Ultrasound 09/30/18 08:00 IMPRESSION: No suspicious findings detected by ultrasound. Transfer Plan - Disposition Transfer Plan: She will be transferred to [facility] to continue wet-to- dry dressings of the abdomen twice daily, she will continue the wound VAC set up as she is done in the hospital. She will continue her peritoneal dialysis and all of her meds as listed on the discharge plan - Time Spent with Patient Time spent with patient: Greater than 30 Minutes Qualifiers - * PATIENT BEING DISCHARGED WITH ANY OF THE FOLLOWING DIAGNOSIS: No Acute Heart Failure - Is this a Heart Failure Patient?: No
[2018-10-08] MEDS ORDERED: EPOETIN ALFA-EPBX 20,000 UNITS (ESRD) in SYRINGE IV PRN (05:00)
[2018-10-08] MEDS ORDERED: EPOETIN ALFA INJ 20000 UNIT/1 ML VIAL (RENAL) IV PRN (05:00)
[2018-10-08] MEDS ORDERED: NORMAL SALINE 1000 ML 1,000 ML IV PRN (05:00)
[2018-10-08] MEDS ORDERED: HEPARIN SOD (PORCINE) 1,000 UNIT/ML 10 ML VIAL IV PRN (05:00)
== END 2018-10-07 16:36 | DRG 570 ==
LOC: ER 17:30 → EH 20:53 → 4S 23:09 → 3S 09-17 16:19
PROVIDERS: ADMIT Surgery; ATTEND Hospitalist
PROC: 0JB80ZZ Excision of Abdomen Subcutaneous Tissue and Fascia, Open Approach (ICD-10-PCS; 2018-09-16)
PROC: 5A1D70Z Performance of Urinary Filtration, Intermittent, Less than 6 Hours Per Day (ICD-10-PCS; 2018-09-17)
PROC: 0WPG03Z Removal of Infusion Device from Peritoneal Cavity, Open Approach (ICD-10-PCS; 2018-09-23)
PROC: 0JB80ZZ Excision of Abdomen Subcutaneous Tissue and Fascia, Open Approach (ICD-10-PCS; 2018-09-25)
PROC: 30233N1 Transfusion of Nonautologous Red Blood Cells into Peripheral Vein, Percutaneous Approach (ICD-10-PCS; 2018-10-01)
PROC: 0JB80ZZ Excision of Abdomen Subcutaneous Tissue and Fascia, Open Approach (ICD-10-PCS; principal; 2018-10-02 10:30)
DX: L02.211 Cutaneous abscess of abdominal wall (principal); N18.6 End stage renal disease; I13.2 Hypertensive heart and chronic kidney disease with heart failure and with stage 5 chronic kidney disease, or end stage renal disease; A04.72 Enterocolitis due to Clostridium difficile, not specified as recurrent; I50.30 Unspecified diastolic (congestive) heart failure; N25.81 Secondary hyperparathyroidism of renal origin; Z68.41 Body mass index [BMI] 40.0-44.9, adult; E11.22 Type 2 diabetes mellitus with diabetic chronic kidney disease; Z99.2 Dependence on renal dialysis; E66.01 Morbid (severe) obesity due to excess calories; G25.89 Other specified extrapyramidal and movement disorders; E83.59 Other disorders of calcium metabolism; E83.39 Other disorders of phosphorus metabolism; K74.60 Unspecified cirrhosis of liver; D63.1 Anemia in chronic kidney disease; M54.5 Low back pain; E78.5 Hyperlipidemia, unspecified; G47.30 Sleep apnea, unspecified; E87.6 Hypokalemia; J45.909 Unspecified asthma, uncomplicated; K21.9 Gastro-esophageal reflux disease without esophagitis; M19.90 Unspecified osteoarthritis, unspecified site; F32.9 Major depressive disorder, single episode, unspecified; R63.0 Anorexia; B96.20 Unspecified Escherichia coli [E. coli] as the cause of diseases classified elsewhere; B95.4 Other streptococcus as the cause of diseases classified elsewhere; K59.00 Constipation, unspecified; N64.4 Mastodynia; R41.82 Altered mental status, unspecified; R11.2 Nausea with vomiting, unspecified; Z79.4 Long term (current) use of insulin; I25.2 Old myocardial infarction; Z88.6 Allergy status to analgesic agent; Z88.8 Allergy status to other drugs, medicaments and biological substances; Z91.14 Patient's other noncompliance with medication regimen; Z83.3 Family history of diabetes mellitus; Z82.49 Family history of ischemic heart disease and other diseases of the circulatory system
CPT/HCPCS: 300; 36415; 36430; 36600; 400; 700; 71045; 76642; 80048; 80053; 80069; 82550; 82553; 82803; 82962; 83605; 83735; 83880; 83970; 84100; 84484; 85025; 85027; 860; 86850; 86900; 86901; 86920; 87040; 87045; 87070; 87075; 87077; 87186; 87205; 87493; 88304; 88305; 93005; 93010; 94660; 94667; 94668; 94799; 96374; 99285; J0330; J0360; J0692; J1610; J1644; J1650; J1815; J1885; J1940; J2185; J2250; J2270; J2370; J2405; J2543; J2704; J2765; J3010; J3370; J3490; J7050; J7060; J7620; P9016; Q4081; Q5105; S0028; S0119

== ENCOUNTER 2018-10-13 13:53 | Emergency (ER) | payer MEDICARE, MEDICAID ==
[2018-10-13 14:04] VITALS: BP 134/71
--- NOTE | 2018-10-13 14:20 | ER Document Report ---
ED General - General Chief Complaint: Fall Injury Stated Complaint: LEFT SIDE PAIN Time Seen by Provider: 10/13/18 14:05 Primary Care Provider: MARTIN MONTERO MD [Primary Care Provider] - Follow up as needed TRAVEL OUTSIDE OF THE [place] IN LAST 30 DAYS: No - HPI Notes: [facility] rolled out of her bed earlier this morning and has pain in her left breast and left lower abdomen. She denies any headaches or vision changes. She denies any hip or upper or lower extremity pain - Related Data Allergies/Adverse Reactions: oxycodone HCl [From Percocet] Allergy (Verified 09/14/18 16:23) Nausea prochlorperazine edisylate [From Compazine] Allergy (Verified 09/14/18 16:23) Hallucinations propoxyphene napsylate [From Darvocet-N 100] Allergy (Verified 09/14/18 16:23) Hallucinations Past Medical History - Social History Smoking Status: Unknown if Ever Smoked Frequency of alcohol use: None Drug Abuse: None Family History: DM, Hypertension Patient has suicidal ideation: No Patient has homicidal ideation: No - Past Medical History Cardiac Medical History: Reports: Hx Congestive Heart Failure, Hx Heart Attack - chf, Hx Hypercholesterolemia, Hx Hypertension Denies: Hx Coronary Artery Disease Pulmonary Medical History: Reports: Hx Asthma, Hx Bronchitis - chronic, Hx Pneumonia, Hx Sleep Apnea Denies: Hx COPD Neurological Medical History: Denies: Hx Cerebrovascular Accident, Hx Seizures Endocrine Medical History: Reports: Hx Diabetes Mellitus Type 1, Hx Diabetes Mellitus Type 2 Renal/ Medical History: Reports: Hx End Stage Renal Disease, Hx Kidney Stones. Denies: Hx Peritoneal Dialysis GI Medical History: Reports: Hx Cirrhosis - Scheduled for liver biopsy in [place] by Dr. Dennis on 04/14/2018., Hx Gastroesophageal Reflux Disease Musculoskeletal Medical History: Reports Hx Arthritis Psychiatric Medical History: Reports: Hx Depression Infectious Medical History: Denies: Hx MRSA Past Surgical History: Reports: Hx Abdominal Surgery - peritoneal dialysis fistula, Hx Hysterectomy, Hx Tubal Ligation, Other - Peritoneal dialysis ro[facility] ter placement - Immunizations Immunizations up to date: No Hx Diphtheria, Pertussis, Tetanus Vaccination: Yes Hx Pneumococcal Vaccination: 11/18/16 Review of Systems - Review of Systems Constitutional: No symptoms reported EENT: No symptoms reported Cardiovascular: No symptoms reported Respiratory: No symptoms reported Gastrointestinal: No symptoms reported Genitourinary: No symptoms reported Female Genitourinary: No symptoms reported Musculoskeletal: See HPI Skin: No symptoms reported Hematologic/Lymphatic: No symptoms reported Neurological/Psychological: No symptoms reported Physical Exam - Vital signs Vitals: Pulse Resp BP Pulse Ox 79 14 134/71 H 96 10/13/18 14:00 10/13/18 14:00 10/13/18 14:00 10/13/18 14:00 - General General appearance: Appears well, Alert - HEENT Head: Normocephalic, Atraumatic Eyes: Normal Conjunctiva: Normal Cornea: Normal Extraocular movements intact: Yes - Respiratory Chest status: Other - No crepitus of chest wall no apparent bruising of left breast but minor tenderness palpation of lateral aspect of left breast. He does have a large cystic structure in breast and mother states that they have performed a mammogram and ultrasound on it. - Abdominal Inspection: Other - Wound VAC in place mid abdomen minor test palpation of lateral aspect of left abdomen pannus with no apparent external bruising or abrasions - Extremities General upper extremity: Other - No pain with movement of bilateral General lower extremity: Other - Full range of motion of bilateral lower extremities active and passive without pain in the hips or lower extremity joints. Course - Re-evaluation Re-evalutation: 10/13/18 14:16 I explained to patient and mother there is no signs of external bruising and due to falling off the bed unlikely of any internal bruising at this point as there is no external bruising. I did advise return precautions. Patient does have pain medications that are provided at the nursing center. She will be discharged back to nursing center at this time. - Vital Signs Vital signs: Temp Pulse Resp BP Pulse Ox 79 14 134/71 H 96 10/13/18 14:00 10/13/18 14:00 10/13/18 14:00 10/13/18 14:00 Discharge - Discharge Clinical Impression: Breast pain, left, Left lateral abdominal pain Fall from bed Qualifiers: Encounter type: initial encounter Qualified Code(s): W06.XXXA - Fall from bed, initial encounter Condition: Good Disposition: HOME-ASSISTED LIVING Additional Instructions: Please seek medical reevaluation if your symptoms worsen or for any other concerns Referrals: MARTIN MONTERO MD [Primary Care Provider] - Follow up as needed
[2018-10-13] MEDS ORDERED: HYDROCODONE/ACETAMINOPHEN 5-325 MG TABLET PO ONE (14:25)
== END 2018-10-13 15:00 | disposition home health service (06) ==
LOC: ER 13:53
DX: N64.4 Mastodynia (principal); R10.32 Left lower quadrant pain; W06.XXXA Fall from bed, initial encounter; I50.9 Heart failure, unspecified; I11.0 Hypertensive heart disease with heart failure; J45.909 Unspecified asthma, uncomplicated; E10.9 Type 1 diabetes mellitus without complications
CPT/HCPCS: 99284

== ENCOUNTER 2018-10-14 12:43 | Inpatient (IN) | payer MEDICARE, MEDICAID ==
[2018-10-14 14:09] LABS: ABSOLUTE BASOPHILS # (AUTO) 0.1 10^3/uL (0.0-0.2); ABSOLUTE EOSINOPHILS # (AUTO) 0.1 10^3/uL (0.0-0.6); ABSOLUTE LYMPHOCYTES (AUTO) 1.7 10^3/uL (0.5-4.7); ABSOLUTE MONOCYTES (AUTO) 1.2 10^3/uL (0.1-1.4); ABSOLUTE NEUT (AUTO) 9.7 10^3/uL (1.7-8.2); BASOPHILS % (AUTO) 0.6 % (0-2); EOSINOPHILS % (AUTO) 0.9 % (0-6); HEMATOCRIT 28.2 % (36.0-47.0); HEMOGLOBIN 8.8 g/dL (12.0-15.5); LYMPHOCYTES % (AUTO) 13.3 % (13-45); MEAN CORPUSCULAR HGB CONC 31.2 g/dL (32.0-36.0); MEAN CORPUSCULAR VOLUME 83 fl (80-97); MONOCYTES % (AUTO) 9.3 % (3-13); PLATELET COUNT 273 10^3/uL (150-450); RED BLOOD COUNT 3.38 10^6/uL (3.72-5.28); RED CELL DISTRIBUTION WIDTH 18.7 % (11.5-14.0); SEGMENTED NEUTROPHILS % (AUTO) 75.9 % (42-78); TOTAL CELLS COUNTED % (AUTO) 100 %; WHITE BLOOD COUNT 12.7 10^3/uL (4.0-10.5)
[2018-10-14 14:13] LABS: INTERNATIONAL RATION (INR) 1.51; PROTHROMBIN TIME 18.4 SEC (11.4-15.4)
[2018-10-14 14:14] LABS: ALBUMIN 2.3 g/dL (3.5-5.0); ALKALINE PHOSPHATASE 129 U/L (38-126); ANION GAP 11 (5-19); ASPARTATE AMINO TRANSFERASE 16 U/L (14-36); BILIRUBIN,DIRECT 0.5 mg/dL (0.0-0.4); BILIRUBIN,TOTAL 0.5 mg/dL (0.2-1.3); BLOOD UREA NITROGEN 26 mg/dL (7-20); CALCIUM 8.7 mg/dL (8.4-10.2); CARBON DIOXIDE 27 mmol/L (22-30); CHLORIDE 95 mmol/L (98-107); POTASSIUM 3.8 mmol/L (3.6-5.0); TOTAL PROTEIN 5.6 g/dL (6.3-8.2)
[2018-10-14] MEDS ORDERED: PIPERACILLIN/TAZOBACTAM 2.25 GM VIAL IV ONE (14:14)
[2018-10-14] MEDS ORDERED: VANCOMYCIN HCL INJ 1000 MG VIAL IV ONE (14:14)
[2018-10-14 14:17] LABS: GLUCOSE 67 mg/dL (75-110)
--- NOTE | 2018-10-14 14:24 | RADIOLOGY REPORT (SQ) ---
EXAM DESCRIPTION: CHEST SINGLE VIEW COMPLETED DATE/TIME: 10/14/2018 2:03 pm REASON FOR STUDY: sepsis COMPARISON: 09/16/2018 EXAM PARAMETERS: NUMBER OF VIEWS: One view. TECHNIQUE: Single frontal radiographic view of the chest acquired. RADIATION DOSE: NA LIMITATIONS: Patient rotation FINDINGS: LUNGS AND PLEURA: Limited exam secondary to patient rotation. Ill-defined retrocardiac op acity. No large effusion. No pneumothorax pre MEDIASTINUM AND HILAR STRUCTURES: No masses. Contour normal. HEART AND VASCULAR STRUCTURES: Enlarged cardiac silhouette. Aortic atherosclerosis. BONES: No acute findings. HARDWARE: Right IJ central venous catheter tip terminates at right atrium. OTHER: No other significant finding. IMPRESSION: Limited exam secondary to rotation. Ill-defined left retrocardiac opacity possibly atelectasis or infection. TECHNICAL DOCUMENTATION: JOB ID: [id number] [employer]- All Rights Reserved Reading location - IP/workstation name: [email or web address]
[2018-10-14 14:25] LABS: VENOUS BLOOD BASE EXCESS 2.1 mmol/L; VENOUS BLOOD HCO3 27.6 mmol/L (20-32); VENOUS BLOOD PH 7.39 (7.30-7.42)
[2018-10-14] MEDS ORDERED: DEXTROSE 50%-WATER 25 GM/50 ML DISP.SYRIN IV ONE (14:29)
--- NOTE | 2018-10-14 15:11 | ER Document Report ---
ED Dizziness/Weakness - General Chief Complaint: General Weakness Stated Complaint: WEAKNESS Time Seen by Provider: 10/14/18 13:58 Primary Care Provider: JULIA GOMEZ PA-C [Primary Care Provider] - Follow up as needed Mode of Arrival: Medic TRAVEL OUTSIDE OF THE [place] IN LAST 30 DAYS: No - HPI Notes: Patient was sent from dialysis today secondary to lethargy weakness and low blood pressure. However when patient arrived here her blood pressure is normal. She states she has been feeling weak over the last several days. At dialysis they also noticed that her temperature was 93 degrees. They did not begin dialysis but sent patient to the emergency department. Patient denies vomiting or diarrhea. Patient states she does not make any urine. She said no cough cold or congestion. She states her abdominal pain is chronic and is no worse than usual. The lethargy has been persistent for several days. There is nothing on the makes it better or worse. She does not have any low blood sugar. There is no known radiation of the symptoms. She does have a wound VAC in place but states that there has been no issues with this. Symptoms have been moderate. Symptoms been constant. - Related Data Allergies/Adverse Reactions: oxycodone HCl [From Percocet] Allergy (Verified 09/14/18 16:23) Nausea prochlorperazine edisylate [From Compazine] Allergy (Verified 09/14/18 16:23) Hallucinations propoxyphene napsylate [From Darvocet-N 100] Allergy (Verified 09/14/18 16:23) Hallucinations Past Medical History - General Information source: Patient, Relative - Social History Smoking Status: Never Smoker Frequency of alcohol use: None Drug Abuse: None Family History: DM, Hypertension Patient has suicidal ideation: No Patient has homicidal ideation: No - Past Medical History Cardiac Medical History: Reports: Hx Congestive Heart Failure, Hx Heart Attack - chf, Hx Hypercholesterolemia, Hx Hypertension Denies: Hx Coronary Artery Disease Pulmonary Medical History: Reports: Hx Asthma, Hx Bronchitis - chronic, Hx Pneumonia, Hx Sleep Apnea Denies: Hx COPD Neurological Medical History: Denies: Hx Cerebrovascular Accident, Hx Seizures Endocrine Medical History: Reports: Hx Diabetes Mellitus Type 1, Hx Diabetes Mellitus Type 2 Renal/ Medical History: Reports: Hx End Stage Renal Disease, Hx Kidney Stones. Denies: Hx Peritoneal Dialysis GI Medical History: Reports: Hx Cirrhosis - Scheduled for liver biopsy in [place] by Dr. Dennis on 04/14/2018., Hx Gastroesophageal Reflux Disease Musculoskeletal Medical History: Reports Hx Arthritis Psychiatric Medical History: Reports: Hx Depression Infectious Medical History: Denies: Hx MRSA Past Surgical History: Reports: Hx Abdominal Surgery - peritoneal dialysis fistula, Hx Hysterectomy, Hx Tubal Ligation, Other - Peritoneal dialysis catheter placement - Immunizations Immunizations up to date: No Hx Diphtheria, Pertussis, Tetanus Vaccination: Yes Hx Pneumococcal Vaccination: 11/18/16 Review of Systems - Review of Systems Constitutional: Malaise, Weakness Cardiovascular: denies: Chest pain, Palpitations Respiratory: denies: Cough, Short of breath Gastrointestinal: Abdominal pain. denies: Diarrhea, Vomiting Neurological/Psychological: Weakness -: Yes All other systems reviewed and negative Physical Exam - Vital signs Vitals: Pulse Ox 98 10/14/18 13:01 Interpretation: Other - Hypothermic - General General appearance: Appears well, Alert In distress: None - HEENT Head: Normocephalic, Atraumatic Eyes: Normal Pupils: PERRL - Respiratory Respiratory status: No respiratory distress Chest status: Nontender Breath sounds: Decreased air movement - Bilateral Chest palpation: Normal - Cardiovascular Rhythm: Regular Heart sounds: Normal auscultation Murmur: No - Abdominal Inspection: Morbidly Obese, Other - Patient has a wound VAC in place on the abdomen. It appears to be operating normally. She is tender in the area around the wound VAC. She has some tender induration to the left superior aspect where the wound VAC is in place. She states this is chronic and not different than usual. Bowel sounds: Hypoactive Tenderness: Tender Organomegaly: No organomegaly - Extremities General upper extremity: Normal inspection, Nontender, Normal color, Normal temperature General lower extremity: Normal inspection, Nontender, Edema - 2+ bilateral, Normal color, Normal temperature - Neurological Neuro grossly intact: Yes Cognition: Normal Orientation: AAOx4 [place] Coma Scale Eye Opening: Spontaneous [place] Coma Scale Verbal: Oriented [place] Coma Scale Motor: Obeys Commands [place] Coma Scale Total: 15 Speech: Normal Motor strength normal: LUE, RUE, LLE, RLE Sensory: Normal - Psychological Associated symptoms: Normal affect, Normal mood - Skin Skin Temperature: Warm Skin Moisture: Moist Skin Color: Other - Patient has skin breakdown adjacent to the wound VAC on the abdomen. Also in the folds of her pannus she has some skin breakdown as well as some discharge and odor consistent with possible intertrigo Course - Re-evaluation Re-evalutation: 10/14/18 15:34 Patient reassessed does not. She is still normotensive. Her heart rate is around 60-70. Patient has unlabored respirations. She is somnolent but easily arousable. She talks coherently. She does have a bear hugger on. She was given half of an amp of D50 for a relatively low blood sugar of 60. This did not make significant difference. I have discussed the case with Dr. Casper, her human resources talent manager. I have also discussed the case with the hospitalist to admit the patient. They have been informed of the need for a general surgery consult for the wound VAC. I have also told them that a head CT may need to be considered. no focal deficits but pt is weak, however this may be baseline. - Vital Signs Vital signs: Temp Pulse Resp BP Pulse Ox 143/75 H 100 10/14/18 13:02 10/14/18 13:02 - Laboratory Result Diagrams: 10/14/18 13:22 10/14/18 13:22 Laboratory results interpreted by me: 10/14/18 10/14/18 10/14/18 13:22 13:22 13:22 WBC 12.7 H RBC 3.38 L Hgb 8.8 L Hct 28.2 L MCH 26.0 L MCHC 31.2 L RDW 18.7 H Absolute Neuts (auto) 9.7 H PT 18.4 H Sodium 132.6 L Chloride 95 L BUN 26 H Creatinine 9.05 H Est GFR ( Amer) 6 L Est GFR (MDRD) Non-Af 5 L Glucose 67 L Direct Bilirubin 0.5 H Alkaline Phosphatase 129 H Total Protein 5.6 L Albumin 2.3 L 10/14/18 15:12 Laboratory 10/14/18 10/14/18 10/14/18 13:22 13:22 13:22 WBC 12.7 H RBC 3.38 L Hgb 8.8 L Hct 28.2 L MCV 83 MCH 26.0 L MCHC 31.2 L RDW 18.7 H Plt Count 273 Lymph % (Auto) 13.3 [place] % (Auto) 9.3 Eos % (Auto) 0.9 Baso % (Auto) 0.6 Absolute Neuts (auto) 9.7 H Absolute Lymphs (auto) 1.7 Absolute Monos (auto) 1.2 Absolute Eos (auto) 0.1 Absolute Basos (auto) 0.1 Seg Neutrophils % 75.9 PT 18.4 H INR 1.51 VBG pH VBG pCO2 VBG HCO3 VBG Base Excess Sodium 132.6 L Potassium 3.8 Chloride 95 L Carbon Dioxide 27 Anion Gap 11 BUN 26 H Creatinine 9.05 H Est GFR ( Amer) 6 L Est GFR (MDRD) Non-Af 5 L Glucose 67 L POC Glucose Lactic Acid Calcium 8.7 Total Bilirubin 0.5 Direct Bilirubin 0.5 H Neonat Total Bilirubin Not Reportable Neonat Direct Bilirubin Not Reportable Neonat Indirect Bili Not Reportable AST 16 ALT 15 Alkaline Phosphatase 129 H Total Protein 5.6 L Albumin 2.3 L 10/14/18 10/14/18 10/14/18 13:22 13:49 14:10 WBC RBC Hgb Hct MCV MCH MCHC RDW Plt Count Lymph % (Auto) [place] % (Auto) Eos % (Auto) Baso % (Auto) Absolute Neuts (auto) Absolute Lymphs (auto) Absolute Monos (auto) Absolute Eos (auto) Absolute Basos (auto) Seg Neutrophils % PT INR VBG pH 7.39 VBG pCO2 47.0 VBG HCO3 27.6 VBG Base Excess 2.1 Sodium Potassium Chloride Carbon Dioxide Anion Gap BUN Creatinine Est GFR ( Amer) Est GFR (MDRD) Non-Af Glucose POC Glucose 72 Lactic Acid 0.8 Calcium Total Bilirubin Direct Bilirubin Neonat Total Bilirubin Neonat Direct Bilirubin Neonat Indirect Bili AST ALT Alkaline Phosphatase Total Protein Albumin - Diagnostic Test Radiology reviewed: Image reviewed, Reports reviewed - EKG Interpretation by Oh EKG shows normal: Sinus rhythm Rate: Normal - 74 Rhythm: NSR Wall[place]/QRS: IVCD Discharge - Discharge Clinical Impression: ESRD (end stage renal disease) on dialysis Hypothermia Qualifiers: Encounter type: initial encounter Qualified Code(s): T68.XXXA - Hypothermia, initial encounter Anemia in chronic kidney disease (CKD) Qualifiers: Chronic kidney disease stage: on chronic dialysis Qualified Code(s): N18.6 - End stage renal disease; D63.1 - Anemia in chronic kidney disease; Z99.2 - Dependence on renal dialysis Condition: Serious Disposition: ADMITTED INPATIENT Admitting Provider: Susanna (Hospitalist) - yong to do orders Referrals: JULIA GOMEZ PA-C [Primary Care Provider] - Follow up as needed
[2018-10-14] MEDS ORDERED: ALBUTEROL SULFATE 0.083% NEB 2.5 MG/3 ML AMPUL NEB PRN (16:40)
[2018-10-14] MEDS ORDERED: MAG HYDROX/AL HYDROX/SIMETH SUSP 30 ML UDCUP PO PRN (16:40)
[2018-10-14] MEDS ORDERED: GLUCAGON,HUMAN RECOMB 1 MG INJ SUBCUT PRN (16:40)
[2018-10-14] MEDS ORDERED: ACETAMINOPHEN 650 MG SUPP.RECT PR PRN (16:40)
[2018-10-14] MEDS ORDERED: ONDANSETRON HCL INJ/PF 4 MG/2 ML SDV IV PRN (16:40)
[2018-10-14] MEDS ORDERED: DEXTROSE 50%-WATER 25 GM/50 ML DISP.SYRIN IV PRN ×2 (16:40)
[2018-10-14] MEDS ORDERED: DEXTROSE 40% GEL 15 GM TUBE PO PRN ×2 (16:40)
[2018-10-14] MEDS ORDERED: MAGNESIUM HYDROXIDE SUSP 30 ML UDCUP PO PRN (16:40)
[2018-10-14] MEDS ORDERED: IPRATROPIUM/ALBUTEROL 0.5-2.5 MG/3 ML AMPUL NEB PRN (17:05)
--- NOTE | 2018-10-14 17:13 | PDOC H&P ---
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 Patient presented to the emergency department from dialysis today due to hypot hermia, hypotension, lethargy, and report of low blood sugars this morning. Evaluation in the emergency department reveals acceptable blood pressures given patient's history (160/90), hypothermia on arrival (95.2 rectally; now on bear hugger), lethargy (although this is somewhat close to the patient's baseline), hypoglycemia (glucose 67) otherwise unremarkable chemistry given patient's requirement of dialysis, leukocytosis (WBCs 12.7), baseline hemoglobin of 8.8, and a normal lactic acid. The patient is empirically provided Comycin and Zosyn by the ED provider. Dr. Casper has been consulted and has agreed to provide dialysis services tomorrow. Dr. Casper requests surgical consult; per patient's mother, wound VAC was changed yesterday with questionable appearance of the wound and increased necrotic tissue. She is referred to the hospitalist service for admission and management of the tanisha bejarano-stated complaints and findings. Past Medical History Cardiac Medical History: Reports: Congestive Heart Failure, Hyperlipidema, Hypertension Denies: Coronary Artery Disease Pulmonary Medical History: Reports: Asthma, Chronic Obstructive Pulmonary Disease (COPD), Pneumonia, Sleep Apnea EENT Medical History: Reports: None Neurological Medical History: Denies: Ischemic CVA, Seizures Endocrine Medical History: Reports: Diabetes Mellitus Type 2 - Insulin- dependent, Obesity Renal/ Medical History: Reports: End Stage Renal Disease GI Medical History: Reports: Cirrhosis, Gastroesophageal Reflux Disease Musculoskeltal Medical History: Reports: Arthritis Psychiatric Medical History: Reports: Depression Hematology: Reports: Anemia Infectious Medical History: Denies: Methicillin-Resistant Staph Aureus Past Surgical History Past Surgical History: Reports: Hysterectomy, Tubal Ligation, Other - Peritoneal dialysis catheter placement; surgical debridement of calciphylax Social History Information Source: Parent Lives with: Group Home Smoking Status: Never Smoker Frequency of Alcohol Use: None Hx Recreational Drug Use: No Drugs: None Hx Prescription Drug Abuse: No - Advance Directive Resuscitation Status: Full Code Surrogate healthcare decision maker:: The patient's mother, Julia Manzano, or [phone] Family History Family History: DM, Hypertension Parental Family History Reviewed: Yes Children Family History Reviewed: Yes Sibling(s) Family History Reviewed.: Yes Medication/Allergy Home Medications: Albuterol Sulfate [Ventolin Hfa 8 gm Mdi (1 Mdi/ER Disp)] 2 puff IH Q6HP PRN 09/17/18 Budesonide/Formoterol Fumarate [Symbicort HFA 160-4.5 mcg Inhaler 6 gm] 2 puff IH Q12 09/17/18 Hydralazine HCl 100 mg PO TID 09/17/18 Metoclopramide HCl 5 mg PO TID 09/17/18 Oxycodone HCl [Roxicodone] 5 mg PO BIDP PRN 09/17/18 Pregabalin [Lyrica 75 mg Capsule] 75 mg PO Q12 09/17/18 Tramadol HCl [Ultram 50 mg Tablet] 50 mg PO TIDP PRN 09/17/18 Carvedilol [Coreg 12.5 mg Tablet] 25 mg PO Q12 #60 tablet 10/07/18 Cinacalcet HCl [Sensipar 30 mg Tablet] 30 mg PO WSUPPER tablet 10/07/18 Folic Acid/Vitamin B Comp W-C [Nephrocaps Multiple Vitamin Capsule] 1 cap PO ACSUPPER capsule 10/07/18 Insulin Glargine,Hum.rec.anlog [Lantus Insulin 100 Unit/1 ml 10 ml] 18 unit SUBCUT QHS unit 10/07/18 Ipratropium/Albuterol Sulfate [Duoneb 3 ml Ampul] 3 ml NEB RTQ8HP PRN 10/14/18 Lactulose [Cephulac Syrup 20 gm/30 ml Udcup] 20 gm PO Q8HP PRN 10/14/18 Oxycodone HCl/Acetaminophen [Percocet 5-325 mg Tablet] 1 tab PO Q6HP PRN 09/19 09/05 Sevelamer HCl [Renagel 800 mg Tablet] 1,600 mg PO BID 10/14/18 Allergies/Adverse Reactions: oxycodone HCl [From Percocet] Allergy (Verified 09/14/18 16:23) Nausea prochlorperazine edisylate [From Compazine] Allergy (Verified 09/14/18 16:23) Hallucinations propoxyphene napsylate [From Darvocet-N 100] Allergy (Verified 09/14/18 16:23) Hallucinations Review of Systems Constitutional: PRESENT: anorexia, fatigue, weakness. ABSENT: chills, fever(s), headache(s), weight gain, weight loss Eyes: ABSENT: visual disturbances Ears: ABSENT: hearing changes Cardiovascular: ABSENT: chest pain, dyspnea on exertion, edema, orthropnea, palpitations Respiratory: ABSENT: cough, hemoptysis Gastrointestinal: PRESENT: nausea. ABSENT: abdominal pain, constipation, diarrhea, hematemesis, hematochezia, vomiting Genitourinary: ABSENT: dysuria, hematuria Musculoskeletal: ABSENT: joint swelling Integumentary: PRESENT: wounds - Abdominal wound; wound VAC in place. ABSENT: rash Neurological: ABSENT: abnormal gait, abnormal speech, confusion, dizziness, focal weakness, syncope Psychiatric: ABSENT: anxiety, depression, homidical ideation, suicidal ideation Endocrine: ABSENT: cold intolerance, heat intolerance, polydipsia, polyuria Hematologic/Lymphatic: ABSENT: easy bleeding, easy bruising Physical Exam Vital Signs: Temp Pulse Resp BP Pulse Ox 96.3 F L 21 H 168/90 H 100 10/14/18 16:26 10/14/18 16:03 10/14/18 16:03 10/14/18 16:03 General appearance: PRESENT: no acute distress, cooperative, morbidly obese, well-developed Head exam: PRESENT: atraumatic, normocephalic Eye exam: PRESENT: conjunctiva pink, EOMI, PERRLA. ABSENT: scleral icterus Ear exam: PRESENT: normal external ear exam Mouth exam: PRESENT: dry mucosa, tongue midline Neck exam: ABSENT: carotid bruit, JVD, lymphadenopathy, thyromegaly Respiratory exam: PRESENT: clear to auscultation shira, decreased breath sounds - Bibasilar; secondary to body habitus and poor aspiratory effort, symmetrical, unlabored, other - Supplemental oxygen via nasal cannula. ABSENT: rales, rhonchi, wheezes Cardiovascular exam: PRESENT: RRR. ABSENT: diastolic murmur, rubs, systolic murmur Pulses: PRESENT: normal dorsalis pedis pul Vascular exam: PRESENT: normal capillary refill GI/Abdominal exam: PRESENT: normal bowel sounds, soft. ABSENT: distended, guarding, mass, organolmegaly, rebound, tenderness Rectal exam: PRESENT: deferred Extremities exam: PRESENT: full ROM. ABSENT: calf tenderness, clubbing, pedal edema Neurological exam: PRESENT: alert, awake, oriented to person, oriented to place, oriented to situation, CN II-XII grossly intact, other - Lethargic; falls back to sleep midsentence, re-awakes easily. ABSENT: motor sensory deficit Psychiatric exam: PRESENT: flat affect, normal mood. ABSENT: homicidal ideation , suicidal ideation Skin exam: PRESENT: dry, warm, other - Wound VAC to right lower abdominal wall, surgical incision to left lower abdomen with sutures in place. No surrounding erythema.. ABSENT: cyanosis, rash Results Laboratory Results: 10/14/18 13:22 10/14/18 13:22 10/14/18 10/14/18 10/14/18 13:22 13:22 13:22 WBC 12.7 H RBC 3.38 L Hgb 8.8 L Hct 28.2 L MCV 83 MCH 26.0 L MCHC 31.2 L RDW 18.7 H Plt Count 273 Seg Neutrophils % 75.9 VBG pH VBG pCO2 VBG HCO3 VBG Base Excess Sodium 132.6 L Potassium 3.8 Chloride 95 L Carbon Dioxide 27 Anion Gap 11 BUN 26 H Creatinine 9.05 H Est GFR ( Amer) 6 L Glucose 67 L Lactic Acid 0.8 Calcium 8.7 Total Bilirubin 0.5 AST 16 Alkaline Phosphatase 129 H Total Protein 5.6 L Albumin 2.3 L TSH 10/14/18 10/14/18 13:22 14:10 WBC RBC Hgb Hct MCV MCH MCHC RDW Plt Count Seg Neutrophils % VBG pH 7.39 VBG pCO2 47.0 VBG HCO3 27.6 VBG Base Excess 2.1 Sodium Potassium Chloride Carbon Dioxide Anion Gap BUN Creatinine Est GFR ( Amer) Glucose Lactic Acid Calcium Total Bilirubin AST Alkaline Phosphatase Total Protein Albumin TSH 0.54 Impressions: Chest X-Ray 08/27/19 13:40 IMPRESSION: Limited exam secondary to rotation. Ill-defined left retrocardiac opacity possibly atelectasis or infection. Assessment and Plan - Diagnosis (1) SIRS (systemic inflammatory response syndrome) Is this a current diagnosis for this admission?: Yes Plan: Patient presents with hypothermia, tachypnea, lethargy, hypoglycemia (although patient is insulin-dependent and has had reportedly poor appetite), and leukocytosis. It is unclear if the patient has an acute infectious process or, perhaps, received too high of a dose of long-acting insulin given her recent poor oral intake. Blood cultures have been obtained. Chest x-ray is unremarkable. Patient is admitted to the medical floor and continuous cardiac telemetry. We will ask surgery to evaluate the patient's abdominal wound; wound VAC left in place. Patient has empirically received IV vancomycin and Zosyn; Will continue until infectious process has been ruled out. Pharmacy to renally dose. Start gentle IV fluids; remain mindful of fluid volume overload given the patient's history of ESRD and CHF. (2) ESRD (end stage renal disease) on dialysis Is this a current diagnosis for this admission?: Yes Plan: Nephrology is consulted; dialysis per their expertise. Continue home dose Sevelamer, Sensipar, and and Nephrocaps. (3) Anemia in chronic kidney disease (CKD) Qualifiers: Chronic kidney disease stage: on chronic dialysis Qualified Code(s): N18.6 - End stage renal disease; D63.1 - Anemia in chronic kidney disease; Z99.2 - Dependence on renal dialysis Is this a current diagnosis for this admission?: Yes Plan: Hemoglobin is stable at 8.8; this appears to be patient's baseline. Nephrology is consulted. (4) Hypothermia Qualifiers: Encounter type: initial encounter Qualified Code(s): T68.XXXA - Hypothermia, initial encounter Is this a current diagnosis for this admission?: Yes Plan: Secondary to #1. Govind sheets. Remaining evaluation and management as above. (5) Calciphylaxis Is this a current diagnosis for this admission?: Yes Plan: Surgery is consulted. Appreciate their evaluation recommendations. Per patient's mother, wound VAC was removed yesterday with a worsened appearance of wound and possible necrotic tissue. We will keep patient n.p.o. until evaluated by surgery. Blood cultures and antibiotics as above. (6) Hypoglycemia Is this a current diagnosis for this admission?: Yes Plan: Unclear etiology; acute infectious process versus poor p.o. intake with continued long-acting insulin. Evaluation of infectious processes with cultures and antibiotics as above. Start D5NS at 75ml/hr. Accucheks q2 hrs. (7) Diabetes mellitus type 2 in obese Is this a current diagnosis for this admission?: Yes Plan: Management of hypoglycemia as above. Mother reports recent poor p.o. intake; will need to decrease the patient overall insulin dosing to match. Accuchek q2 hrs; will decrease/discontinue D5NS once bgl has stabilized. Sliding Scale Insulin. Hypoglycemia protocol. - Time Time Spent with patient: 35 or more minutes Medications reviewed and adjusted accordingly: Yes Anticipated discharge: SNF Within: within 72 hours - Inpatient Certification Based on my medical assessment, after consideration of the patient's comorbidities, presenting symptoms, or acuity I expect that the services needed warrant INPATIENT care.: Yes I certify that my determination is in accordance with my understanding of Medicare's requirements for reasonable and necessary INPATIENT services [42 CFR 412.3e].: Yes Medical Necessity: Failure to Improve With Outpatient Therapy, Significant Comorbidiites Make Outpatient Treatment Too Risky, Need Close Monitoring Due to Risk of Patient Decompensation, Need For IV Fluids, Need For Continuous Telemetry Monitoring, Need for IV Antibiotics, Need for Surgery, Risk of Complication if Not Cared For in Hospital, Risk of Diagnosis Which Will Require Inpatient Eval/Care/Monitoring
[2018-10-14] MEDS ORDERED: VANCOMYCIN HCL 0 MG in DEXTROSE 5%-WATER 250 ML IV NR (17:15)
[2018-10-14] MEDS ORDERED: PIPERACILLIN SODIUM/TAZOBACTAM 3.375 GM in NORMAL SALINE 100 ML IV SCH (18:00)
--- NOTE | 2018-10-14 19:03 | EKG REPORT ---
SEVERITY:- ABNORMAL ECG - SINUS RHYTHM NONSPECIFIC INTRAVENTRICULAR CONDUCTION DELAY BORDERLINE R WAVE PROGRESSION, ANTERIOR LEADS : Confirmed by: Eduard Bean MD 14-Oct-2018 19:02:55
[2018-10-14] MEDS: SEVELAMER HCL 800 MG TABLET PO SCH (19:53)
[2018-10-14] MEDS: DOCUSATE SODIUM 100 MG CAPSULE PO SCH (19:53)
[2018-10-14] MEDS: DEXTROSE 5%-NORMAL SALINE 1,000 ML IV PRN (19:56)
[2018-10-14] MEDS: OXYCODONE HCL IR 5 MG TABLET PO PRN (20:41)
[2018-10-14] MEDS ORDERED: (PENDING PHARMACY ID) (Hydralazine Hcl [Hydralazine Hcl] 100 MG) PO SCH (22:00)
[2018-10-14] MEDS: INSULIN LISPRO 100 UNIT/ML 3 ML VIAL SUBCUT SCH (22:21)
[2018-10-14] MEDS: HEPARIN SOD (PORCINE) 5,000 UNIT/ML 1 ML VIAL SUBCUT SCH (22:25)
[2018-10-14] MEDS: HYDRALAZINE HCL 50 MG TABLET PO SCH (22:28)
[2018-10-14] MEDS: PREGABALIN 75 MG CAPSULE PO SCH (22:28)
[2018-10-14] MEDS: CARVEDILOL 12.5 MG TABLET PO SCH (22:28)
[2018-10-15] MEDS ORDERED: EPOETIN ALFA INJ 20000 UNIT/1 ML VIAL (RENAL) IV PRN (05:00)
[2018-10-15] MEDS: HEPARIN SOD (PORCINE) 5,000 UNIT/ML 1 ML VIAL SUBCUT SCH ×3 (05:32→22:33)
[2018-10-15] MEDS: HYDRALAZINE HCL 50 MG TABLET PO SCH ×3 (05:33→22:32)
[2018-10-15] MEDS: PANTOPRAZOLE SODIUM 20 MG TABLET.DR PO SCH (05:33)
[2018-10-15] MEDS: PIPERACILLIN SODIUM/TAZOBACTAM 2.25 GM in NORMAL SALINE 50 ML IV SCH ×2 (05:34→18:16)
[2018-10-15] MEDS: ACETAMINOPHEN 325 MG TABLET PO PRN ×3 (05:46→18:16)
[2018-10-15 07:56] LABS: ABSOLUTE BASOPHILS # (AUTO) 0.1 10^3/uL (0.0-0.2); ABSOLUTE EOSINOPHILS # (AUTO) 0.2 10^3/uL (0.0-0.6); ABSOLUTE LYMPHOCYTES (AUTO) 1.6 10^3/uL (0.5-4.7); ABSOLUTE NEUT (AUTO) 7.7 10^3/uL (1.7-8.2); BASOPHILS % (AUTO) 1.2 % (0-2); EOSINOPHILS % (AUTO) 1.9 % (0-6); HEMATOCRIT 25.3 % (36.0-47.0); HEMOGLOBIN 8.2 g/dL (12.0-15.5); LYMPHOCYTES % (AUTO) 15.1 % (13-45); MEAN CORPUSCULAR HEMOGLOBIN 26.9 pg (27.0-33.4); MEAN CORPUSCULAR HGB CONC 32.5 g/dL (32.0-36.0); MEAN CORPUSCULAR VOLUME 83 fl (80-97); MONOCYTES % (AUTO) 9.7 % (3-13); PLATELET COUNT 272 10^3/uL (150-450); RED BLOOD COUNT 3.06 10^6/uL (3.72-5.28); RED CELL DISTRIBUTION WIDTH 18.3 % (11.5-14.0); SEGMENTED NEUTROPHILS % (AUTO) 72.1 % (42-78); TOTAL CELLS COUNTED % (AUTO) 100 %; WHITE BLOOD COUNT 10.7 10^3/uL (4.0-10.5)
[2018-10-15] MEDS ORDERED: (PENDING PHARMACY ID) (Metoclopramide Hcl [Metoclopramide Hcl] 5 MG) PO SCH (08:00)
[2018-10-15 08:03] LABS: PROTHROMBIN TIME 19.2 SEC (11.4-15.4)
[2018-10-15 08:04] LABS: PARTIAL THROMBOPLASTIN TIME 49.3 SEC (23.5-35.8)
[2018-10-15] MEDS ORDERED: EPOETIN ALFA-EPBX 20,000 UNITS (ESRD) in SYRINGE IV PRN (08:15)
[2018-10-15 08:19] LABS: ALBUMIN 2.1 g/dL (3.5-5.0); ALKALINE PHOSPHATASE 116 U/L (38-126); ANION GAP 13 (5-19); ASPARTATE AMINO TRANSFERASE 13 U/L (14-36); BILIRUBIN,DIRECT 0.5 mg/dL (0.0-0.4); BILIRUBIN,TOTAL 0.5 mg/dL (0.2-1.3); BLOOD UREA NITROGEN 29 mg/dL (7-20); CALCIUM 8.8 mg/dL (8.4-10.2); CARBON DIOXIDE 23 mmol/L (22-30); CHLORIDE 97 mmol/L (98-107); GLUCOSE 89 mg/dL (75-110); PHOSPHORUS 5.7 mg/dL (2.5-4.5); POTASSIUM 4.1 mmol/L (3.6-5.0); TOTAL PROTEIN 5.3 g/dL (6.3-8.2)
[2018-10-15] MEDS: INSULIN LISPRO 100 UNIT/ML 3 ML VIAL SUBCUT SCH ×4 (09:51→22:33)
[2018-10-15] MEDS: METOCLOPRAMIDE HCL 10 MG TABLET PO SCH ×3 (10:27→18:16)
[2018-10-15] MEDS: PREGABALIN 75 MG CAPSULE PO SCH ×2 (10:27→22:31)
[2018-10-15] MEDS: SEVELAMER HCL 800 MG TABLET PO SCH ×2 (10:28→18:15)
[2018-10-15] MEDS: DOCUSATE SODIUM 100 MG CAPSULE PO SCH ×2 (10:28→18:15)
[2018-10-15] MEDS: CARVEDILOL 12.5 MG TABLET PO SCH ×2 (10:28→22:32)
[2018-10-15] MEDS: FLUTICASONE/VILANTEROL 200-25 MCG/DOSE IH SCH (10:29)
[2018-10-15] MEDS: DEXTROSE 5%-NORMAL SALINE 1,000 ML IV PRN (10:40)
[2018-10-15] MEDS: OXYCODONE HCL IR 5 MG TABLET PO PRN (14:46)
--- NOTE | 2018-10-15 15:02 | PDOC CONSULTATION ---
Consultation Consult Date: 10/15/18 Provider Consulted: Deandra JANE Consult reason:: ESRD for HD. History of Present Illness Admission Date/PCP: 10/14/18 16:08 JULIA GOMEZ PA-C History of Present Illness: JASPREET STAFFORD is a 52 year old female with a past medical history significant for ESRD on dialysis in the background of insulin-dependent diabetes mellitus, diastolic CHF, obstructive sleep apnea (noncompliant with CPAP), obesity, asthma, Noncompliance issues with medication/lifestyle/dialysis. She presents to the ER with complaints of her hypothermia, feeling unwell, relative hypog lycemia because of anorexia though not to the point of having any seizures. Approximately 3 to 4 months ago she developed a large painful baseball sized mass in the right iliac fossa. It later ulcerated and a couple of minor surgeries later she was confirmed to have calciphylaxis.It has become an enlarging nonhealing lesion and currently she is following with the wound clinic and has a wound VAC on. She has had a few debridements by the surgical team for necrotic tissue.This patient was initially on peritoneal dialysis and converted to hemodialysis given the enlarging and proximity to the exit site of the PD catheter. She has had anorexia and has been hardly eating much with development of relative hypoglycemia. Patient is currently being seen on dialysis. She is undergoing dialysis without any issues. She is complaining of persistent pain around the wound site. Dialysis orders were reviewed with the treating dialysis nurse. Labs and medications were reviewed. Past Medical History Cardiac Medical History: Reports: CHF-Diastolic, Hyperlipidemia, Hypertension- primary, Myocardial Infarction - chf Denies: Coronary Artery Disease Pulmonary Medical History: Reports: Asthma, Bronchitis - chronic, Chronic Obstructive Pulmonary Disease (COPD), Pneumonia, Sleep Apnea EENT Medical History: Reports: None Neurological Medical History: Denies: Ischemic CVA, Seizures Endocrine Medical History: Reports: Diabetes Mellitus Type 1, Diabetes Mellitus Type 2 - Insulin-dependent, Obesity Complications of Diabetes: Reports: Nephropathy Renal/ Medical History: Reports: End Stage Renal Disease, Hypokalemia, Hyperphosphatemia, Secondary Hyperparathyroidism GI Medical History: Reports: Cirrhosis, Gastroesophageal Reflux Disease Musculoskeltal Medical History: Reports: Arthritis Psychiatric Medical History: Reports: Depression Infectious Medical History: Denies: Methicillin-resist Staph Aureus Hematology Medical History: Reports Anemia of Chronic Kidney Disease Past Surgical History Past Surgical History: Reports: Dialysis Access Surgery PD, Hysterectomy, Tubal Ligation, Other - Peritoneal dialysis catheter placement; surgical debridement of calciphylax Social History Lives with: Prison Smoking Status: Never Smoker Frequency of Alcohol Use: None Hx Recreational Drug Use: No Drugs: None Hx Prescription Drug Abuse: No - Advance Directive Resuscitation Status: Full Code Family History Parental Family History Reviewed: Yes - Negative for ESRD Children Family History Reviewed: No Sibling(s) Family History Reviewed.: No Medication/Allergy Home Medications: Albuterol Sulfate [Ventolin Hfa 8 gm Mdi (1 Mdi/ER Disp)] 2 puff IH Q6HP PRN 09/17/18 Budesonide/Formoterol Fumarate [Symbicort HFA 160-4.5 mcg Inhaler 6 gm] 2 puff IH Q12 09/17/18 Hydralazine HCl 100 mg PO Q8 09/17/18 Metoclopramide HCl 5 mg PO MEALS 09/17/18 Oxycodone HCl [Roxicodone] 5 mg PO BIDP PRN 09/17/18 Pregabalin [Lyrica 75 mg Capsule] 75 mg PO Q12 09/17/18 Tramadol HCl [Ultram 50 mg Tablet] 50 mg PO TIDP PRN 09/17/18 Carvedilol [Coreg 12.5 mg Tablet] 25 mg PO Q12 #60 tablet 10/07/18 Cinacalcet HCl [Sensipar 30 mg Tablet] 30 mg PO WSUPPER tablet 10/07/18 Folic Acid/Vitamin B Comp W-C [Nephrocaps Multiple Vitamin Capsule] 1 cap PO ACSUPPER capsule 10/07/18 Insulin Glargine,Hum.rec.anlog [Lantus Insulin 100 Unit/1 ml 10 ml] 18 unit SUBCUT QHS unit 10/07/18 Ipratropium/Albuterol Sulfate [Duoneb 3 ml Ampul] 3 ml NEB RTQ8HP PRN 10/14/18 Lactulose [Cephulac Syrup 20 gm/30 ml Udcup] 20 gm PO Q8HP PRN 10/14/18 Oxycodone HCl/Acetaminophen [Percocet 5-325 mg Tablet] 1 tab PO Q6HP PRN 0 10/14/18 Sevelamer HCl [Renagel 800 mg Tablet] 1,600 mg PO BID 10/14/18 Allergies/Adverse Reactions: oxycodone HCl [From Percocet] Allergy (Verified 09/14/18 16:23) Nausea prochlorperazine edisylate [From Compazine] Allergy (Verified 09/14/18 16:23) Hallucinations propoxyphene napsylate [From Darvocet-N 100] Allergy (Verified 09/14/18 16:23) Hallucinations Review of Systems Constitutional: PRESENT: anorexia, fatigue, weakness. ABSENT: chills, fever(s), night sweats Nose, Mouth, and Throat: ABSENT: mouth pain, sore throat Cardiovascular: PRESENT: dyspnea on exertion. ABSENT: chest pain, edema, orthropnea, palpitations Respiratory: ABSENT: dyspnea, hemoptysis Gastrointestinal: PRESENT: abdominal pain. ABSENT: bloating, coffee ground emesis, diarrhea, dysphagia, hematemesis, hematochezia Musculoskeletal: ABSENT: deformity, joint swelling Integumentary: PRESENT: lesions, wounds. ABSENT: erythema, rash Neurological: ABSENT: abnormal gait, abnormal movements, abnormal speech, confusion, convulsions, focal weakness, frequent falls, lack of coordination, vertigo Endocrine: ABSENT: polydipsia Hematologic/Lymphatic: ABSENT: easy bleeding, easy bruising, lymphadenopathy Physical Exam Vital Signs: Temp Pulse Resp BP Pulse Ox 98.1 F 80 17 123/47 L 95 10/15/18 08:12 10/15/18 08:12 10/15/18 08:12 10/15/18 08:12 10/15/18 08:12 Intake & Output 10/14/18 10/15/18 10/16/18 06:59 06:59 06:59 Intake Total 50 1000 Output Total 0 Balance 50 1000 Weight 145.9 kg General appearance: PRESENT: no acute distress Eye exam: PRESENT: EOMI, PERRLA Ear exam: PRESENT: normal external ear exam Mouth exam: PRESENT: moist Neck exam: ABSENT: lymphadenopathy, meningismus, tenderness, thyromegaly, tracheal deviation Respiratory exam: PRESENT: clear to auscultation shira. ABSENT: crackles Cardiovascular exam: PRESENT: +S1, +S2 GI/Abdominal exam: PRESENT: normal bowel sounds, soft, tenderness - Mild tenderness around the extensor large wound site. She is got a wound VAC on it.. ABSENT: organomegaly Extremities exam: PRESENT: pedal edema Neurological exam: PRESENT: alert, awake, oriented to person, oriented to place Psychiatric exam: PRESENT: anxious Skin exam: ABSENT: cyanosis, mottled, rash Results Laboratory Results: 10/15/18 07:27 10/15/18 07:27 10/14/18 10/14/18 10/14/18 13:22 13:22 13:22 WBC 12.7 H RBC 3.38 L Hgb 8.8 L Hct 28.2 L MCV 83 MCH 26.0 L MCHC 31.2 L RDW 18.7 H Plt Count 273 Seg Neutrophils % 75.9 VBG pH VBG pCO2 VBG HCO3 VBG Base Excess Sodium 132.6 L Potassium 3.8 Chloride 95 L Carbon Dioxide 27 Anion Gap 11 BUN 26 H Creatinine 9.05 H Est GFR ( Amer) 6 L Glucose 67 L Lactic Acid 0.8 Calcium 8.7 Phosphorus Magnesium Total Bilirubin 0.5 AST 16 Alkaline Phosphatase 129 H Total Protein 5.6 L Albumin 2.3 L TSH 10/14/18 10/14/18 10/15/18 13:22 14:10 07:27 WBC 10.7 H RBC 3.06 L Hgb 8.2 L Hct 25.3 L MCV 83 MCH 26.9 L MCHC 32.5 RDW 18.3 H Plt Count 272 Seg Neutrophils % 72.1 VBG pH 7.39 VBG pCO2 47.0 VBG HCO3 27.6 VBG Base Excess 2.1 Sodium Potassium Chloride Carbon Dioxide Anion Gap BUN Creatinine Est GFR ( Amer) Glucose Lactic Acid Calcium Phosphorus Magnesium Total Bilirubin AST Alkaline Phosphatase Total Protein Albumin TSH 0.54 10/15/18 07:27 WBC RBC Hgb Hct MCV MCH MCHC RDW Plt Count Seg Neutrophils % VBG pH VBG pCO2 VBG HCO3 VBG Base Excess Sodium 132.9 L Potassium 4.1 Chloride 97 L Carbon Dioxide 23 Anion Gap 13 BUN 29 H Creatinine 9.50 H Est GFR ( Amer) 5 L Glucose 89 Lactic Acid Calcium 8.8 Phosphorus 5.7 H Magnesium 1.9 Total Bilirubin 0.5 AST 13 L Alkaline Phosphatase 116 Total Protein 5.3 L Albumin 2.1 L TSH Impressions: Chest X-Ray 10/14/18 13:40 IMPRESSION: Limited exam secondary to rotation. Ill-defined left retrocardiac opacity possibly atelectasis or infection. Assessment & Plan - Diagnosis (1) ESRD (end stage renal disease) on dialysis Is this a current diagnosis for this admission?: Yes Plan: Patient currently undergoing dialysis without any issues. Vital signs are stable. She is being supervised to ensure safe and smooth procedure. Dialysis orders were reviewed with the treating dialysis nurse. Plan to remove approximately 2 L as tolerated. Maintain euglycemia. Discussed with the nurse to get her D50 given her blood sugars was around 80 (2) Abdominal wall abscess Plan: Secondary to calciphylaxis. Patient currently on sodium thiosulfate.She is currently on Pip -Tazo and vancomycin. Will recommend surgical follow-through. (3) Calciphylaxis Plan: In the background of ESRD and hyperparathyroidism. Patient currently on sodium thiosulfate. Large nonhealing wound being followed by wound clinic. (4) Diabetes mellitus type 2 in obese Is this a current diagnosis for this admission?: Yes Plan: Currently euglycemic to relate to hypoglycemia. Administered D50. Maintain blood sugars around 100. (5) Hypertension Qualifiers: Hypertension type: essential hypertension Qualified Code(s): I10 - Essential (primary) hypertension Plan: Controlled. Monitor. (6) Hypoglycemia Is this a current diagnosis for this admission?: Yes Plan: Needs to be monitored given her anorexia in the face of this painful calciphy lactic ulcer and being on pain medications/narcotics.
[2018-10-15] MEDS ORDERED: NORMAL SALINE IV ONE (15:30)
[2018-10-15] MEDS ORDERED: SODIUM THIOSULFATE IV ONE (15:30)
[2018-10-15] MEDS ORDERED: VANCOMYCIN HCL 750 MG in DEXTROSE 5%-WATER 250 ML IV SCH (18:00)
[2018-10-15] MEDS: FOLIC ACID/VITAMIN B COMP W-C CAPSULE PO SCH (18:15)
[2018-10-15] MEDS: CINACALCET HCL 30 MG TABLET PO SCH (18:17)
--- NOTE | 2018-10-15 22:29 | Progress Note Acknowledgement ---
Progress Note Acknowledgement Progess Note Acknowledgement: I, the undersigned member of the medical staff with appropriate privileges and with supervisory authority over Na Melgoza, a [facility] practice allied health professional, acknowledge that I have reviewed the progress notes entered on this patient, and in my professional judgment believe that the assessment made and/or any care evidenced was appropriate
--- NOTE | 2018-10-15 22:38 | PDOC PROGRESS REPORT ---
Subjective Progress Note for:: 10/15/18 Subjective:: JASPREET STAFFORD is a 52 year old female with a past medical history significant fo ES DR on dialysis, anemia, diastolic CHF, obstructive sleep apnea (noncompliant with CPAP), obesity, asthma, insulin-dependent diabetes mellitus, medication/lifestyle/dialysis noncompliance who was recently admitted to our facility for management of calciphylaxis to the abdominal wall now status post surgical debridement with wound VAC in place 10/14/2018 for hypoglycemia and hypotension. The patient was seen on afternoon rounds while receiving hemodialysis. She is awake and alert; oriented x4. She reports abdominal wall pain related to the wound VAC and is requesting to not have the wound VAC dressing changed today. She reports anorexia but without nausea or vomiting. She believes that it is been several days since her last bowel movement but cannot confirm this specifically. She denies fever, chills, chest pain, palpitations, dyspnea, orthopnea. She has no other questions or concerns today. No concerns per nursing Reason For Visit: HYPOTHERMIA,ESRD OBN DIALYSIS,LETHARGY Physical Exam Vital Signs: Temp Pulse Resp BP Pulse Ox 97.6 F 141 H 16 132/66 H 98 10/15/18 19:19 10/15/18 19:19 10/15/18 19:19 10/15/18 19:19 10/15/18 19:19 Intake & Output 10/14/18 10/15/18 10/16/18 06:59 06:59 06:59 Intake Total 50 1380 Output Total 0 900 Balance 50 480 Weight 145.9 kg General appearance: PRESENT: no acute distress, cooperative, morbidly obese, well-developed, well-nourished Head exam: PRESENT: atraumatic, normocephalic Eye exam: PRESENT: conjunctiva pink, EOMI, PERRLA. ABSENT: scleral icterus Ear exam: PRESENT: normal external ear exam Mouth exam: PRESENT: dry mucosa, tongue midline Neck exam: ABSENT: carotid bruit, JVD, lymphadenopathy, thyromegaly Respiratory exam: PRESENT: clear to auscultation shira, symmetrical, unlabored. ABSENT: rales, rhonchi, wheezes Cardiovascular exam: PRESENT: RRR, +S1, +S2. ABSENT: diastolic murmur, rubs, systolic murmur Pulses: PRESENT: normal dorsalis pedis pul Vascular exam: PRESENT: normal capillary refill GI/Abdominal exam: PRESENT: normal bowel sounds, soft, tenderness. ABSENT: distended, guarding, mass, organolmegaly, rebound Rectal exam: PRESENT: deferred Extremities exam: PRESENT: full ROM. ABSENT: calf tenderness, clubbing, pedal edema Neurological exam: PRESENT: alert, awake, oriented to person, oriented to place, oriented to time, oriented to situation, CN II-XII grossly intact, other - Fatigue. ABSENT: motor sensory deficit Psychiatric exam: PRESENT: appropriate affect, normal mood. ABSENT: homicidal ideation, suicidal ideation Skin exam: PRESENT: dry, warm, other - Dressing in place to lower abdominal wall. No surrounding erythema. Tender to touch.. ABSENT: cyanosis, rash Results Laboratory Results: 10/15/18 07:27 10/15/18 07:27 10/15/18 10/15/18 07:27 07:27 WBC 10.7 H RBC 3.06 L Hgb 8.2 L Hct 25.3 L MCV 83 MCH 26.9 L MCHC 32.5 RDW 18.3 H Plt Count 272 Seg Neutrophils % 72.1 Sodium 132.9 L Potassium 4.1 Chloride 97 L Carbon Dioxide 23 Anion Gap 13 BUN 29 H Creatinine 9.50 H Est GFR ( Amer) 5 L Glucose 89 Calcium 8.8 Phosphorus 5.7 H Magnesium 1.9 Total Bilirubin 0.5 AST 13 L Alkaline Phosphatase 116 Total Protein 5.3 L Albumin 2.1 L Impressions: Chest X-Ray 10/14/18 13:40 IMPRESSION: Limited exam secondary to rotation. Ill-defined left retrocardiac opacity possibly atelectasis or infection. Assessment and Plan - Diagnosis (1) SIRS (systemic inflammatory response syndrome) Is this a current diagnosis for this admission?: Yes Plan: Improved. Hypothermia, tachypnea, and lethargy have resolved. Patient is mildly fatigued, however, noted to be at her baseline. WBCs are trending down. Patient was admitted with hypothermia, tachypnea, lethargy, hypoglycemia (although patient is insulin-dependent and has had reportedly poor appetite), and leukocytosis. It is unclear if the patient has an acute infectious process or, perhaps, received too high of a dose of long-acting insulin given her recent poor oral intake. Blood cultures are negative. Chest x-ray is unremarkable. Patient is admitted to the medical floor and continuous cardiac telemetry. We will ask surgery to evaluate the patient's abdominal wound; wound VAC left in place. Unfortunately, patient is refusing dressing removal/change at this time. Patient has empirically received IV vancomycin and Zosyn; Will continue until infectious process has been ruled out. Pharmacy to renally dose. Start gentle IV fluids; remain mindful of fluid volume overload given the patient's history of ESRD and CHF. (2) ESRD (end stage renal disease) on dialysis Is this a current diagnosis for this admission?: Yes Plan: Nephrology is consulted; dialysis per their expertise. Continue home dose Sevelamer, Sensipar, and and Nephrocaps. (3) Anemia in chronic kidney disease (CKD) Qualifiers: Chronic kidney disease stage: on chronic dialysis Qualified Code(s): N18.6 - End stage renal disease; D63.1 - Anemia in chronic kidney disease; Z99.2 - Dependence on renal dialysis Is this a current diagnosis for this admission?: Yes Plan: Hemoglobin is stable at 8.8; this appears to be patient's baseline. Nephrology is consulted. (4) Hypothermia Qualifiers: Encounter type: initial encounter Qualified Code(s): T68.XXXA - Hypothermia, initial encounter Is this a current diagnosis for this admission?: Yes Plan: Resolved. Secondary to #1. Remaining evaluation and management as above. (5) Calciphylaxis Is this a current diagnosis for this admission?: Yes Plan: Surgery is consulted. Appreciate their evaluation recommendations. Discussed w/ surgery; no immediate plans for intervention (r/t dialysis today). Will advance diet. Blood cultures and antibiotics as above. (6) Hypoglycemia Is this a current diagnosis for this admission?: Yes Plan: Unclear etiology; acute infectious process versus poor p.o. intake with continued long-acting insulin. Evaluation of infectious processes with cultures and antibiotics as above. If related to Lantus administered prior to arrival, will expect to see glucose rise tomorrow (>24 hrs since last dose). Continue D5NS at 75ml/hr. Accucheks q4 hrs. (7) Diabetes mellitus type 2 in obese Is this a current diagnosis for this admission?: Yes Plan: Management of hypoglycemia as above. Mother reports recent poor p.o. intake; will need to decrease the patient overall insulin dosing to match. Accuchek q4 hrs; will decrease/discontinue D5NS once bgl has stabilized. Sliding Scale Insulin only; hold all long acting. Hypoglycemia protocol. - Time Time Spent with patient: 25-34 minutes Medications reviewed and adjusted accordingly: Yes Anticipated discharge: SNF
[2018-10-16] MEDS: OXYCODONE HCL IR 5 MG TABLET PO PRN (02:40)
[2018-10-16 05:16] LABS: HEMATOCRIT 24.3 % (36.0-47.0); HEMOGLOBIN 8.1 g/dL (12.0-15.5); MEAN CORPUSCULAR HEMOGLOBIN 28.2 pg (27.0-33.4); MEAN CORPUSCULAR HGB CONC 33.3 g/dL (32.0-36.0); MEAN CORPUSCULAR VOLUME 85 fl (80-97); PLATELET COUNT 261 10^3/uL (150-450); RED BLOOD COUNT 2.88 10^6/uL (3.72-5.28); RED CELL DISTRIBUTION WIDTH 18.7 % (11.5-14.0); WHITE BLOOD COUNT 10.8 10^3/uL (4.0-10.5)
[2018-10-16 05:35] LABS: ANION GAP 13 (5-19); BLOOD UREA NITROGEN 19 mg/dL (7-20); CALCIUM 8.9 mg/dL (8.4-10.2); CARBON DIOXIDE 25 mmol/L (22-30); CHLORIDE 98 mmol/L (98-107); GLUCOSE 110 mg/dL (75-110); POTASSIUM 3.8 mmol/L (3.6-5.0)
[2018-10-16] MEDS: PIPERACILLIN SODIUM/TAZOBACTAM 2.25 GM in NORMAL SALINE 50 ML IV SCH ×2 (06:04→17:44)
[2018-10-16] MEDS: PANTOPRAZOLE SODIUM 20 MG TABLET.DR PO SCH (06:05)
[2018-10-16] MEDS: HYDRALAZINE HCL 50 MG TABLET PO SCH ×3 (06:05→22:22)
[2018-10-16] MEDS: HEPARIN SOD (PORCINE) 5,000 UNIT/ML 1 ML VIAL SUBCUT SCH ×3 (06:06→22:22)
[2018-10-16] MEDS ORDERED: ACETAMINOPHEN 650 MG SUPP.RECT PR PRN (07:24)
[2018-10-16] MEDS ORDERED: ONDANSETRON HCL INJ/PF 4 MG/2 ML SDV IV PRN (07:30)
[2018-10-16] MEDS: INSULIN LISPRO 100 UNIT/ML 3 ML VIAL SUBCUT SCH ×4 (08:18→22:22)
[2018-10-16] MEDS: SEVELAMER HCL 800 MG TABLET PO SCH ×2 (10:07→17:49)
[2018-10-16] MEDS: METOCLOPRAMIDE HCL 10 MG TABLET PO SCH ×3 (10:07→17:13)
[2018-10-16] MEDS: PREGABALIN 75 MG CAPSULE PO SCH ×2 (10:07→22:22)
[2018-10-16] MEDS: CARVEDILOL 12.5 MG TABLET PO SCH ×2 (10:07→22:21)
[2018-10-16] MEDS: DOCUSATE SODIUM 100 MG CAPSULE PO SCH ×2 (10:07→17:13)
[2018-10-16] MEDS: FLUTICASONE/VILANTEROL 200-25 MCG/DOSE IH SCH (10:08)
[2018-10-16] MEDS: DEXTROSE 5%-NORMAL SALINE 1,000 ML IV PRN (11:56)
[2018-10-16] MEDS ORDERED: LIDOCAINE 0.5% INJ-PF (5 MG/ML) 50 ML SDV ONE (15:11)
[2018-10-16] MEDS ORDERED: METOCLOPRAMIDE HCL INJ/PF 10 MG/2 ML SDV ONE (15:13)
[2018-10-16] MEDS ORDERED: FAMOTIDINE INJ/PF 20 MG/2 ML SDV IV ONE (15:14)
[2018-10-16] MEDS ORDERED: PROPOFOL INJ 200 MG/20 ML VIAL IV ONE (15:23)
[2018-10-16] MEDS ORDERED: MIDAZOLAM 2 MG/2 ML INJ ONE (15:23)
[2018-10-16] MEDS ORDERED: FENTANYL CITRATE INJ/PF 100 MCG/2 ML AMPUL ONE (15:23)
[2018-10-16] MEDS ORDERED: MEPERIDINE HCL/PF INJ 25 MG/1 ML DISP.SYRIN IV PRN (16:16)
[2018-10-16] MEDS ORDERED: MORPHINE SULFATE 10 MG/ML INJ IV PRN (16:16)
[2018-10-16] MEDS ORDERED: FENTANYL CITRATE INJ/PF 100 MCG/2 ML AMPUL IV PRN ×3 (16:16)
[2018-10-16] MEDS ORDERED: DIPHENHYDRAMINE HCL 50 MG/ML VIAL IV PRN (16:16)
[2018-10-16] MEDS ORDERED: OXYCODONE-ACETAMINOPHEN 5-325 MG TABLET PO PRN ×2 (16:16)
--- NOTE | 2018-10-16 17:04 | Operative Report ---
Operative Report DATE OF SURGERY: 10/16/18 PREOPERATIVE DIAGNOSIS: abscess with necrotic fatty tissue POSTOPERATIVE DIAGNOSIS: Necrotic fatty tissue of abdominal wound OPERATION: Debridement of necrotic fatty tissue of abdominal wall SURGEON: ANNAMARIE TODD ANESTHESIA: LMAC TISSUE REMOVED OR ALTERED: skin and necrotic fatty tissue COMPLICATIONS: none ESTIMATED BLOOD LOSS: 30 ccs INTRAOPERATIVE FINDINGS: mostly necrotic fatty tissue PROCEDURE: After adequate IV sedation, patient was placed in the supine position in the lower abdominal wall was then prepped and draped in the usual sterile fashion. Local anesthesia infiltrated around the right lateral area where she was most tender. An ellipse of skin and necrotic fatty tissue was excised using the scalpel. The fatty tissue noted to be necrotic but no dheeraj abscess noted. About a 10 x 6 cm x 5 cm deep area was excised. Hemostasis was then controlled with cautery. Next attention then directed to the left lateral side of the previous wound which is some tenderness and somewhat firm area. Local anesthesia infiltrated and again the skin and the necrotic necrotic tissue was excised roughly an area about 10 x 10 cm. Again hemostasis controlled with cautery. Area on the superior aspect of the previous small wound was anesthetized with half percent lidocaine. The area was subsequently excised roughly measuring about 15 cm long by about 4 cm wide. Again hemostasis obtained with the use of cautery. Following this the whole wound roughly measured about 45 cm wide by about 10 to 12cm long. The whole cavity was then packed with diluted Betadine soak Kerlix x3. Sterile 4 x 4 and ABD pads were placed over the Kerlix and tape over the skin with paper tape. Patient tolerated procedure well. Estimated blood loss about 30 cc. Patient then brought to the recovery room in satisfactory condition.
[2018-10-16] MEDS: FOLIC ACID/VITAMIN B COMP W-C CAPSULE PO SCH ×2 (17:13→17:49)
[2018-10-16] MEDS: CINACALCET HCL 30 MG TABLET PO SCH (17:49)
--- NOTE | 2018-10-16 22:05 | PDOC PROGRESS REPORT ---
Subjective Progress Note for:: 10/16/18 Subjective:: JASPREET STAFFORD is a 52 year old female with a past medical history significant fo ESRD on dialysis, anemia, diastolic CHF, obstructive sleep apnea (noncompliant with CPAP), obesity, asthma, insulin-dependent diabetes mellitus, medication/lifestyle/dialysis noncompliance who was recently admitted to our facility for management of calciphylaxis to the abdominal wall now status post surgical debridement with wound VAC in place 10/14/2018 for hypoglycemia and hypotension. Attempted to round on the patient twice during the day. Unfortunately, both times she was out of the room (to OR for surgical debridement of her abdominal wound). I was able to meet with the patient's mother late this afternoon. We discussed the patient's overall health, current wound complications, continued intermittent noncompliance with wound care and dialysis services. Patient's mother expresses interest in meeting with Palliative Care services. No concerns per nursing. Reason For Visit: HYPOTHERMIA,ESRD OBN DIALYSIS,LETHARGY Physical Exam Vital Signs: Temp Pulse Resp BP Pulse Ox 97.3 F 91 16 147/72 H 100 10/16/18 18:00 10/16/18 18:30 10/16/18 18:30 10/16/18 18:30 10/16/18 18:30 Intake & Output 10/15/18 10/16/18 10/17/18 06:59 06:59 06:59 Intake Total 50 2980 940 Output Total 0 900 50 Balance 50 2080 890 Weight 145.9 kg 141 kg Eye exam: ABSENT: scleral icterus Additional comments: Attempted to round on the patient twice today, unfortunately, during both attempts the patient was in the OR/PACU for surgical debridement of her abdominal wound. Therefore, exam was not completed today. Results Laboratory Results: 10/16/18 04:27 10/16/18 04:27 10/16/18 10/16/18 04:27 04:27 WBC 10.8 H RBC 2.88 L Hgb 8.1 L Hct 24.3 L MCV 85 MCH 28.2 MCHC 33.3 RDW 18.7 H Plt Count 261 Sodium 136.4 L Potassium 3.8 Chloride 98 Carbon Dioxide 25 Anion Gap 13 BUN 19 Creatinine 6.49 H Est GFR ( Amer) 8 L Glucose 110 Calcium 8.9 Impressions: Chest X-Ray 10/14/18 13:40 IMPRESSION: Limited exam secondary to rotation. Ill-defined left retrocardiac opacity possibly atelectasis or infection. Assessment and Plan - Diagnosis (1) SIRS (systemic inflammatory response syndrome) Is this a current diagnosis for this admission?: Yes Plan: Improved. Hypothermia, tachypnea, and lethargy have resolved. Better glucose today; no longer hypoglycemic. WBCs are trending down; 10.8 today. Patient was admitted with hypothermia, tachypnea, lethargy, hypoglycemia (although patient is insulin-dependent and has had reportedly poor appetite), and leukocytosis. It is unclear if the patient has an acute infectious process or, perhaps, received too high of a dose of long-acting insulin given her recent poor oral intake. Blood cultures are negative. Chest x-ray is unremarkable. Patient is admitted to the medical floor and continuous cardiac telemetry. Surgery consulted today; appreciate their assistance. Patient has empirically received IV vancomycin and Zosyn; Will continue until infectious process has been ruled out. Pharmacy to renally dose. Start gentle IV fluids; remain mindful of fluid volume overload given the patient's history of ESRD and CHF. (2) ESRD (end stage renal disease) on dialysis Is this a current diagnosis for this admission?: Yes Plan: Nephrology is consulted; dialysis per their expertise. Continue home dose Sevelamer, Sensipar, and and Nephrocaps. (3) Anemia in chronic kidney disease (CKD) Qualifiers: Chronic kidney disease stage: on chronic dialysis Qualified Code(s): N18.6 - End stage renal disease; D63.1 - Anemia in chronic kidney disease; Z99.2 - Dependence on renal dialysis Is this a current diagnosis for this admission?: Yes Plan: Hemoglobin is stable at 8.8; this appears to be patient's baseline. Nephrology is consulted. (4) Calciphylaxis Is this a current diagnosis for this admission?: Yes Plan: To OR for surgical debridement today. Surgery is consulted. Appreciate their evaluation recommendations. Blood cultures and antibiotics as above. (5) Diabetes mellitus type 2 in obese Is this a current diagnosis for this admission?: Yes Plan: Mother reports recent poor p.o. intake; will need to decrease the patient overall insulin dosing to match. Admitted with persistent hypoglycemia requiring D5NS maintenance fluids. Accuchek ACHS Sliding Scale Insulin only; hold all long acting. Hypoglycemia protocol. (6) Hypothermia Qualifiers: Encounter type: initial encounter Qualified Code(s): T68.XXXA - Hypothermia, initial encounter Is this a current diagnosis for this admission?: Yes Plan: Resolved. Secondary to #1. Remaining evaluation and management as above. (7) Hypoglycemia Is this a current diagnosis for this admission?: Yes Plan: Resolved. Likely secondary to poor p.o. intake with continued long-acting insulin at SNF prior to arrival. Evaluation of infectious processes with cultures and antibiotics as above. IVF discontinued. Continue to monitor accu-cheks ACHS. Hypoglycemia protocol in place. - Time Time Spent with patient: 15-24 minutes Medications reviewed and adjusted accordingly: Yes Anticipated discharge: Home with Homehealth
[2018-10-17] MEDS ORDERED: HEPARIN SOD (PORCINE) 1,000 UNIT/ML 10 ML VIAL IV PRN (05:00)
[2018-10-17] MEDS ORDERED: NORMAL SALINE 1000 ML 1,000 ML IV PRN (05:00)
[2018-10-17] MEDS: HEPARIN SOD (PORCINE) 5,000 UNIT/ML 1 ML VIAL SUBCUT SCH ×3 (05:29→21:33)
[2018-10-17] MEDS: PIPERACILLIN SODIUM/TAZOBACTAM 2.25 GM in NORMAL SALINE 50 ML IV SCH ×2 (05:29→18:44)
[2018-10-17] MEDS: HYDRALAZINE HCL 50 MG TABLET PO SCH ×3 (05:29→21:33)
[2018-10-17] MEDS: PANTOPRAZOLE SODIUM 20 MG TABLET.DR PO SCH (05:30)
[2018-10-17 06:43] LABS: ABSOLUTE BASOPHILS # (AUTO) 0.1 10^3/uL (0.0-0.2); ABSOLUTE EOSINOPHILS # (AUTO) 0.1 10^3/uL (0.0-0.6); ABSOLUTE LYMPHOCYTES (AUTO) 2.8 10^3/uL (0.5-4.7); ABSOLUTE MONOCYTES (AUTO) 1.4 10^3/uL (0.1-1.4); BASOPHILS % (AUTO) 1.1 % (0-2); LYMPHOCYTES % (AUTO) 24.2 % (13-45); MEAN CORPUSCULAR HEMOGLOBIN 28.7 pg (27.0-33.4); MEAN CORPUSCULAR HGB CONC 32.6 g/dL (32.0-36.0); MEAN CORPUSCULAR VOLUME 88 fl (80-97); MONOCYTES % (AUTO) 12.3 % (3-13); PLATELET COUNT 257 10^3/uL (150-450); RED CELL DISTRIBUTION WIDTH 18.5 % (11.5-14.0); SEGMENTED NEUTROPHILS % (AUTO) 61.4 % (42-78); TOTAL CELLS COUNTED % (AUTO) 100 %; WHITE BLOOD COUNT 11.4 10^3/uL (4.0-10.5)
[2018-10-17 06:49] LABS: HEMOGLOBIN 7.2 g/dL (12.0-15.5)
[2018-10-17 06:52] LABS: ANION GAP 14 (5-19); BLOOD UREA NITROGEN 23 mg/dL (7-20); CALCIUM 9.1 mg/dL (8.4-10.2); CARBON DIOXIDE 22 mmol/L (22-30); CHLORIDE 100 mmol/L (98-107); GLUCOSE 142 mg/dL (75-110); POTASSIUM 4.1 mmol/L (3.6-5.0)
[2018-10-17 06:56] LABS: VANCOMYCIN,TROUGH 15.2 ug/mL (5.0-20.0)
[2018-10-17] MEDS ORDERED: EPOETIN ALFA-EPBX 20,000 UNIT in SYRINGE, DISPOSABLE, 1 EACH IV PRN (08:00)
[2018-10-17] MEDS: METOCLOPRAMIDE HCL 10 MG TABLET PO SCH ×3 (08:10→16:11)
--- NOTE | 2018-10-17 08:10 | ADVANCED CARE ---
- Diagnosis (1) SIRS (systemic inflammatory response syndrome) Diagnosis Current: Yes (2) ESRD (end stage renal disease) on dialysis Diagnosis Current: Yes (3) Anemia in chronic kidney disease (CKD) Diagnosis Current: Yes (4) Calciphylaxis Diagnosis Current: Yes (5) Diabetes mellitus type 2 in obese Diagnosis Current: Yes (6) Hypothermia Diagnosis Current: No (7) Hypoglycemia Diagnosis Current: No Attendance: Patient's mother, Tejal Manzano Resuscitation Status: Full Code Discussion: Discussed the patient's chronic medical conditions, poor prognosis related to calciphylaxis, patient intermittent non-compliance with medications/wound care/dialysis. Mother discussed that she does not believe that her daughter is depressed, or giving up, but exhausted by the numerous medical interventions. She does cite that her daughter has significant pain, but does believe that she is using pain medications to "sleep and avoided it all." We did discuss the patient's right to determine self-care, even to refuse care. Introduced the topic of hospice services. Patient's mother was reluctant to discuss these, however, was very open to meeting with palliative care services. I did describe out of care services as a bridge option to hospice once the patient and family determined that she was ready to discontinue medical interventions. Patient's mother confirms interest in meeting with palliative care to learn more about the services offered and acknowledges that her daughter may decide in the near future to pursue hospice care. Care Planning Goals: FULL CODE Meet with Palliative Care team. Time Spent: 20 min
[2018-10-17] MEDS: INSULIN LISPRO 100 UNIT/ML 3 ML VIAL SUBCUT SCH ×4 (08:12→21:34)
[2018-10-17] MEDS: SEVELAMER HCL 800 MG TABLET PO SCH ×2 (08:24→18:43)
[2018-10-17] MEDS: ACETAMINOPHEN 325 MG TABLET PO PRN (08:24)
[2018-10-17] MEDS ORDERED: SODIUM THIOSULFATE 12.5 GM/50 ML IV SCH (10:00)
[2018-10-17] MEDS: CARVEDILOL 12.5 MG TABLET PO SCH ×2 (11:09→21:33)
[2018-10-17] MEDS: PREGABALIN 75 MG CAPSULE PO SCH ×2 (11:09→21:33)
[2018-10-17] MEDS: FLUTICASONE/VILANTEROL 200-25 MCG/DOSE IH SCH (11:09)
[2018-10-17] MEDS: DOCUSATE SODIUM 100 MG CAPSULE PO SCH ×2 (11:09→18:43)
[2018-10-17] MEDS ORDERED: NORMAL SALINE 250 ML IV PRN (14:57)
--- NOTE | 2018-10-17 15:33 | PDOC PROGRESS REPORT ---
Subjective Progress Note for:: 10/17/18 Subjective:: I am seeing the patient during initiation of dialysis this afternoon. When the patient got into the room she requested Dr. baron because she does not want to have dialysis treatment today. I explained to her that it is very important that she allows us to do dialysis treatment on her because this is part of the treatment for her calciphylaxis. Explained to her the consequences of not doing dialysis treatment which would include worsening of her calciphylaxis and delayed wound healing and going into uremia. We had to call the patient's mother who was in her room to come and pick to her as well to convince her to do dialysis. After this discussion the patient finally agreed to do dialysis. In no time she started falling asleep and so we were able to start dialysis treatment. Patient will need blood transfusion today due to decrease in her hemoglobin to 7 .2. She underwent another debridement by surgery yesterday. Today I spoke to her mother again regarding the patient's prognosis and plan of treatment. As I spoke to her mother yesterday while the patient was in the debridement procedure, I again reiterated that the patient's current condition with a calciphylaxis has a very poor prognosis that can lead to if she does not response to current treatment. I have this conversation few weeks ago during her last hospitalization and the patient's mother indicated that she understood and she remembered. I explained to her that for us to treatthe patient, she needs to cooperate and be compliant with treatment including dialysis, wound care and physical therapy if she would allow. A palliative consult has been placed and the mom is open to talking to the palliative care people to see what the patient's options are. I reiterated that if the patient refuses treatment and continues to be noncompliant then hospice care will be an option if she comes to that point. I encouraged the mom to talk to the patient during one of her good days so that she can have a sense of what the patient would want to do given her condition currently. I would have wanted to discuss this with the patient herself but as of this time she is a sleeping and is not in her best condition to discuss this. Reason For Visit: HYPOTHERMIA,ESRD OBN DIALYSIS,LETHARGY Physical Exam Vital Signs: Temp Pulse Resp BP Pulse Ox 97.5 F 82 18 111/60 100 10/17/18 10:57 10/17/18 10:57 10/17/18 10:57 10/17/18 10:57 10/17/18 10:57 Intake & Output 10/16/18 10/17/18 10/18/18 06:59 06:59 06:59 Intake Total 2980 2049 289 Output Total 900 50 Balance 2079 1999 289 Weight 141 kg 144 kg Vitals during dialysis: Blood pressure of 126/59, heart rate of 85, blood flow rate of 350 mL/min, dialysate flow rate of 800 mL/min. Exam: General appearance: PRESENT: no acute distress, cooperative, well-developed, well-nourished, somewhat somnolent Head exam: PRESENT: atraumatic, normocephalic Eye exam: PRESENT: conjunctiva pale, PERRLA. ABSENT: scleral icterus Neck exam: ABSENT: JVD Respiratory exam: PRESENT: Normal breath sounds. ABSENT: crackles, rales, rhonchi, unlabored, wheezes Cardiovascular exam: PRESENT: Regular rate rhythm -+S1, +S2. ABSENT: diastolic murmur, systolic murmur GI/Abdominal exam: PRESENT: normal bowel sounds, soft. Her right lower quadrant wound is open and packed with gauze covered with dressing. ABSENT: guarding, mass, tenderness Extremities exam: ABSENT: No edema Neurological exam: PRESENT: Somnolent, oriented to person, place and time. Skin exam: PRESENT: dry, warm, Cardiovascular exam: PRESENT: +S1, +S2 GI/Abdominal exam: PRESENT: normal bowel sounds, soft, tenderness - Mild tenderness around the extensor large wound site. She is got a wound VAC on it.. ABSENT: organomegaly Results Laboratory Results: 10/17/18 05:47 10/17/18 05:47 10/17/18 10/17/18 05:47 05:47 WBC 11.4 H RBC 2.50 L Hgb 7.2 L Hct 22.0 L MCV 88 MCH 28.7 MCHC 32.6 RDW 18.5 H Plt Count 257 Seg Neutrophils % 61.4 Sodium 135.6 L Potassium 4.1 Chloride 100 Carbon Dioxide 22 Anion Gap 14 BUN 23 H Creatinine 8.17 H Est GFR ( Amer) 6 L Glucose 142 H Calcium 9.1 Impressions: Chest X-Ray 10/14/18 13:40 IMPRESSION: Limited exam secondary to rotation. Ill-defined left retrocardiac opacity possibly atelectasis or infection. Assessment & Plan - Diagnosis (1) ESRD (end stage renal disease) on dialysis Is this a current diagnosis for this admission?: Yes Plan: We will do dialysis today for 3 hours, using the patient's PermCath, with 3 potassium bath, blood flow rate of 350 mL per minute, dialysate flow rate of 800 mL per minute, ultrafiltration 2 to 3 L as tolerated, no heparin and Procrit with 10,000 units during dialysis intravenously. Treatment plan discussed with her dialysis nurses who will monitor the patient throughout dialysis treatment. If the patient asked to be taken off early in her treatment we will continue to do our best to encourage the patient to finish her treatment as prescribed. (2) SIRS (systemic inflammatory response syndrome) Is this a current diagnosis for this admission?: Yes Plan: Patient is on IV Zosyn and vancomycin. (3) Calciphylaxis Is this a current diagnosis for this admission?: Yes Plan: Continue sodium thiosulfate 25 g IV q. dialysis treatment. (4) Anemia in chronic kidney disease (CKD) Qualifiers: Chronic kidney disease stage: on chronic dialysis Qualified Code(s): N18.6 - End stage renal disease; D63.1 - Anemia in chronic kidney disease; Z99.2 - Dependence on renal dialysis Is this a current diagnosis for this admission?: Yes Plan: We will give the patient Procrit today. Since the patient's hemoglobin dropped from debridement yesterday we will give the patient 1 unit of packed RBC transfusion during dialysis today. (5) Abdominal wall abscess Is this a current diagnosis for this admission?: Yes Plan: Continue wound care per surgery service. (6) Abdominal pain Qualifiers: Abdominal location: right lower quadrant Qualified Code(s): R10.31 - Right lower quadrant pain Is this a current diagnosis for this admission?: Yes Plan: Continue the least pain medication that she needs so as to avoid affecting her mental state. (7) Diabetes mellitus type 2 in obese Is this a current diagnosis for this admission?: Yes (8) Hypertension Qualifiers: Hypertension type: essential hypertension Qualified Code(s): I10 - Essential (primary) hypertension Is this a current diagnosis for this admission?: Yes (9) Morbid obesity with BMI of 40.0-44.9, adult Is this a current diagnosis for this admission?: Yes - Notes Notes: Thank you very much for this consultation. Case discussed with the patient's mother. Case also discussed with Na Melgoza of the hospital service yesterday and the tool planner. - Time Time with patient: Greater than 35 minutes
[2018-10-17] MEDS: OXYCODONE HCL IR 5 MG TABLET PO PRN (16:05)
--- NOTE | 2018-10-17 17:05 | PDOC PROGRESS REPORT ---
Subjective Progress Note for:: 10/17/18 Subjective:: JASPREET STAFFORD is a 52 year old female with a past medical history significant fo ESRD on dialysis, anemia, diastolic CHF, obstructive sleep apnea (noncompliant with CPAP), obesity, asthma, insulin-dependent diabetes mellitus, medication/lifestyle/dialysis noncompliance who was recently admitted to our facility for management of calciphylaxis to the abdominal wall now status post surgical debridement with wound VAC in place 10/14/2018 for hypoglycemia and hypotension. The patient was seen on morning rounds with her father present. She is awake and alert; oriented x4. She reports abdominal pain related to her wound. She is fatigued and does fall back to sleep during our conversation. She denies fever, chills, chest pain, palpitations, dyspnea, orthopnea, ab dominal pain, nausea, vomiting. She has no other questions or concerns today. No concerns per nursing Reason For Visit: HYPOTHERMIA,ESRD OBN DIALYSIS,LETHARGY Physical Exam Vital Signs: Temp Pulse Resp BP Pulse Ox 97.9 F 86 20 103/50 L 97 10/17/18 16:36 10/17/18 16:36 10/17/18 16:36 10/17/18 16:36 10/17/18 16:36 Intake & Output 10/16/18 10/17/18 10/18/18 06:59 06:59 06:59 Intake Total 2980 0 589 Output Total 900 50 Balance 2079 1999 58 Weight 141 kg 144 kg General appearance: PRESENT: no acute distress, morbidly obese, well-developed, well-nourished Head exam: PRESENT: atraumatic, normocephalic Eye exam: PRESENT: conjunctiva pink, EOMI, PERRLA. ABSENT: scleral icterus Ear exam: PRESENT: normal external ear exam Mouth exam: PRESENT: moist, tongue midline Neck exam: ABSENT: carotid bruit, JVD, lymphadenopathy, thyromegaly Respiratory exam: PRESENT: clear to auscultation shira, decreased breath sounds - bibasilar secondary to body habitus and poor effort, symmetrical, unlabored. ABSENT: rales, rhonchi, wheezes Cardiovascular exam: PRESENT: RRR, +S1, +S2. ABSENT: diastolic murmur, rubs, systolic murmur Pulses: PRESENT: normal dorsalis pedis pul Vascular exam: PRESENT: normal capillary refill GI/Abdominal exam: PRESENT: normal bowel sounds, soft. ABSENT: distended, guarding, mass, organolmegaly, rebound, tenderness Rectal exam: PRESENT: deferred Extremities exam: PRESENT: full ROM. ABSENT: calf tenderness, clubbing, pedal edema Neurological exam: PRESENT: alert, awake, oriented to person, oriented to place, oriented to time, oriented to situation, CN II-XII grossly intact. ABSENT: motor sensory deficit Psychiatric exam: PRESENT: flat affect, normal mood. ABSENT: homicidal ideation, suicidal ideation Skin exam: PRESENT: dry, warm, other - surgical dressing to abdominal wound; serous drainage present. ABSENT: cyanosis, rash Results Laboratory Results: 10/17/18 05:47 10/17/18 05:47 10/17/18 10/17/18 10/17/18 05:47 05:47 15:15 WBC 11.4 H RBC 2.50 L Hgb 7.2 L Hct 22.0 L MCV 88 MCH 28.7 MCHC 32.6 RDW 18.5 H Plt Count 257 Seg Neutrophils % 61.4 Sodium 135.6 L Potassium 4.1 Chloride 100 Carbon Dioxide 22 Anion Gap 14 BUN 23 H Creatinine 8.17 H Est GFR ( Amer) 6 L Glucose 142 H Calcium 9.1 Blood Type O POSITIVE Antibody Screen NEGATIVE Impressions: Chest X-Ray 10/14/18 13:40 IMPRESSION: Limited exam secondary to rotation. Ill-defined left retrocardiac opacity possibly atelectasis or infection. Assessment and Plan - Diagnosis (1) SIRS (systemic inflammatory response syndrome) Is this a current diagnosis for this admission?: Yes Plan: Resolved. Patient has had normal temperature, acceptable blood pressure, normal heart rate and respiratory rate with overall downward trend and leukocytosis since admission. Blood glucose is stabilized. Hypothermia, tachypnea, and lethargy have resolved. Better glucose today; no longer hypoglycemic. WBCs are trending down; 10.8 today. Patient was admitted with hypothermia, tachypnea, lethargy, hypoglycemia (although patient is insulin-dependent and has had reportedly poor appetite), and leukocytosis. It is unclear if the patient has an acute infectious process or, perhaps, received too high of a dose of long-acting insulin given her recent poor oral intake. Blood cultures are negative. Chest x-ray is unremarkable. Patient is admitted to the medical floor and continuous cardiac telemetry. Surgery consulted today; appreciate their assistance. Patient has empirically received IV vancomycin and Zosyn; will discuss with surgery tomorrow option for discontinuing antibiotic therapy. Pharmacy to [facility] dose. (2) ESRD (end stage renal disease) on dialysis Is this a current diagnosis for this admission?: Yes Plan: Nephrology is consulted; dialysis per their expertise. Continue home dose Sevelamer, Sensipar, and and Nephrocaps. (3) Anemia in chronic kidney disease (CKD) Qualifiers: Chronic kidney disease stage: on chronic dialysis Qualified Code(s): N18.6 - End stage renal disease; D63.1 - Anemia in chronic kidney disease; Z99.2 - Dependence on renal dialysis Is this a current diagnosis for this admission?: Yes Plan: Hemoglobin is stable at 7.2. Nephrology is consulted. To receive 1 unit PRBC and erythropoietin today per nephrology. (4) Calciphylaxis Is this a current diagnosis for this admission?: Yes Plan: S/p surgical debridement of abdominal wound yesterday by Dr. Pichardo. Blood cultures and antibiotics as above. Discussed with Dr. Pichardo; plans for wound VAC and possible discharge on Saturday. (5) Diabetes mellitus type 2 in obese Is this a current diagnosis for this admission?: Yes Plan: Mother reports recent poor p.o. intake; will need to decrease the patient overall insulin dosing to match. Admitted with persistent hypoglycemia requiring D5NS maintenance fluids; have been discontinued. Accuchek ACHS Sliding Scale Insulin only; hold all long acting. Hypoglycemia protocol. (6) Hypothermia Qualifiers: Encounter type: initial encounter Qualified Code(s): T68.XXXA - Hypothermia, initial encounter Is this a current diagnosis for this admission?: Yes Plan: Resolved. Secondary to #1. Remaining evaluation and management as above. (7) Hypoglycemia Is this a current diagnosis for this admission?: Yes Plan: Resolved. Likely secondary to poor p.o. intake with continued long-acting insulin at SNF prior to arrival. Evaluation of infectious processes with cultures and antibiotics as above. IVF discontinued. Continue to monitor accu-cheks ACHS. Hypoglycemia protocol in place. - Time Time Spent with patient: 25-34 minutes Medications reviewed and adjusted accordingly: Yes Anticipated discharge: Home with Homehealth Within: within 72 hours
[2018-10-17] MEDS: NORMAL SALINE IV SCH (17:15)
[2018-10-17] MEDS: SODIUM THIOSULFATE IV SCH (17:15)
[2018-10-17] MEDS ORDERED: VANCOMYCIN HCL 750 MG in DEXTROSE 5%-WATER 250 ML IV SCH (18:00)
[2018-10-17] MEDS: FOLIC ACID/VITAMIN B COMP W-C CAPSULE PO SCH (18:43)
[2018-10-17] MEDS: CINACALCET HCL 30 MG TABLET PO SCH (18:44)
[2018-10-17] MEDS ORDERED: MORPHINE SULFATE 10 MG/ML INJ IV PRN (19:00)
--- NOTE | 2018-10-17 20:30 | PDOC PROGRESS REPORT ---
Subjective Progress Note for:: 10/17/18 Subjective:: pains along abdominal wound Reason For Visit: HYPOTHERMIA,ESRD OBN DIALYSIS,LETHARGY Physical Exam Vital Signs: Temp Pulse Resp BP Pulse Ox 97.9 F 89 18 169/88 H 100 10/17/18 17:51 10/17/18 17:51 10/17/18 17:51 10/17/18 17:51 10/17/18 17:51 Intake & Output 10/16/18 10/17/18 10/18/18 06:59 06:59 06:59 Intake Total 2980 2100 839 Output Total 182 54 3779 Balance 2079 Weight 141 kg 144 kg Exam: packing removed and new wound vac applied. Wound looks clean Results Laboratory Results: 10/17/18 05:47 10/17/18 05:47 10/17/18 10/17/18 10/17/18 05:47 05:47 15:15 WBC 11.4 H RBC 2.50 L Hgb 7.2 L Hct 22.0 L MCV 88 MCH 28.7 MCHC 32.6 RDW 18.5 H Plt Count 257 Seg Neutrophils % 61.4 Sodium 135.6 L Potassium 4.1 Chloride 100 Carbon Dioxide 22 Anion Gap 14 BUN 23 H Creatinine 8.17 H Est GFR ( Amer) 6 L Glucose 142 H Calcium 9.1 Blood Type O POSITIVE Antibody Screen NEGATIVE Impressions: Chest X-Ray 10/14/18 13:40 IMPRESSION: Limited exam secondary to rotation. Ill-defined left retrocardiac opacity possibly atelectasis or infection. Assessment & Plan - Diagnosis (1) Anemia in chronic kidney disease (CKD) Qualifiers: Chronic kidney disease stage: on chronic dialysis Qualified Code(s): N18.6 - End stage renal disease; D63.1 - Anemia in chronic kidney disease; Z99.2 - Dependence on renal dialysis Is this a current diagnosis for this admission?: Yes (2) ESRD (end stage renal disease) on dialysis Is this a current diagnosis for this admission?: Yes (3) SIRS (systemic inflammatory response syndrome) Is this a current diagnosis for this admission?: Yes (4) Abdominal wall abscess Is this a current diagnosis for this admission?: Yes (5) Calciphylaxis Is this a current diagnosis for this admission?: Yes (6) Diabetes mellitus type 2 in obese Is this a current diagnosis for this admission?: Yes (7) Hypertension Qualifiers: Hypertension type: essential hypertension Qualified Code(s): I10 - Essential (primary) hypertension Is this a current diagnosis for this admission?: Yes (8) Morbid obesity with BMI of 40.0-44.9, adult Is this a current diagnosis for this admission?: Yes - Time Time Spent with patient: 15-24 minutes - Inpatient Certification Medical Necessity: Need Close Monitoring Due to Risk of Patient Decompensation, Need for IV Antibiotics - Plan Summary Plan Summary: Wound vac applied over abdominal wound Continue IV antibiotics Will need VNA for wound vac changes and follow up at the Wound care center in 2- 3 weeks Continue wound vac change every 3 days
[2018-10-17] MEDS: MORPHINE SULFATE 10 MG/ML INJ IV PRN (21:33)
[2018-10-18] MEDS ORDERED: ALPRAZOLAM 0.25 MG TABLET PO ONE (05:00)
[2018-10-18 05:43] LABS: HEMATOCRIT 23.5 % (36.0-47.0); MEAN CORPUSCULAR HEMOGLOBIN 28.3 pg (27.0-33.4); MEAN CORPUSCULAR HGB CONC 33.1 g/dL (32.0-36.0); MEAN CORPUSCULAR VOLUME 86 fl (80-97); PLATELET COUNT 232 10^3/uL (150-450); RED BLOOD COUNT 2.74 10^6/uL (3.72-5.28); RED CELL DISTRIBUTION WIDTH 17.9 % (11.5-14.0); WHITE BLOOD COUNT 12.2 10^3/uL (4.0-10.5)
[2018-10-18 05:45] LABS: HEMOGLOBIN 7.8 g/dL (12.0-15.5)
[2018-10-18 06:04] LABS: ANION GAP 14 (5-19); BLOOD UREA NITROGEN 18 mg/dL (7-20); CALCIUM 9.1 mg/dL (8.4-10.2); CARBON DIOXIDE 23 mmol/L (22-30); CHLORIDE 100 mmol/L (98-107); GLUCOSE 125 mg/dL (75-110); POTASSIUM 3.7 mmol/L (3.6-5.0)
[2018-10-18] MEDS: PIPERACILLIN SODIUM/TAZOBACTAM 2.25 GM in NORMAL SALINE 50 ML IV SCH ×2 (06:09→17:21)
[2018-10-18] MEDS: HEPARIN SOD (PORCINE) 5,000 UNIT/ML 1 ML VIAL SUBCUT SCH ×3 (06:10→21:28)
[2018-10-18] MEDS: MORPHINE SULFATE 10 MG/ML INJ IV PRN ×3 (06:11→19:58)
[2018-10-18] MEDS: HYDRALAZINE HCL 50 MG TABLET PO SCH ×3 (06:11→21:28)
[2018-10-18] MEDS: PANTOPRAZOLE SODIUM 20 MG TABLET.DR PO SCH (06:11)
[2018-10-18] MEDS: INSULIN LISPRO 100 UNIT/ML 3 ML VIAL SUBCUT SCH ×4 (08:00→21:28)
[2018-10-18] MEDS: DOCUSATE SODIUM 100 MG CAPSULE PO SCH ×2 (10:00→17:17)
[2018-10-18] MEDS: PREGABALIN 75 MG CAPSULE PO SCH ×2 (10:10→21:28)
[2018-10-18] MEDS: SEVELAMER HCL 800 MG TABLET PO SCH ×2 (10:10→17:18)
[2018-10-18] MEDS: CARVEDILOL 12.5 MG TABLET PO SCH ×2 (10:10→21:27)
[2018-10-18] MEDS: METOCLOPRAMIDE HCL 10 MG TABLET PO SCH ×3 (10:11→17:19)
[2018-10-18] MEDS: FLUTICASONE/VILANTEROL 200-25 MCG/DOSE IH SCH (10:13)
[2018-10-18] MEDS: OXYCODONE HCL IR 5 MG TABLET PO PRN (14:41)
--- NOTE | 2018-10-18 14:55 | ADVANCED CARE ---
- Diagnosis (1) SIRS (systemic inflammatory response syndrome) Diagnosis Current: Yes (2) ESRD (end stage renal disease) on dialysis Diagnosis Current: Yes (3) Anemia in chronic kidney disease (CKD) Diagnosis Current: Yes (4) Calciphylaxis Diagnosis Current: Yes (5) Diabetes mellitus type 2 in obese Diagnosis Current: Yes (6) Hypothermia Diagnosis Current: No (7) Hypoglycemia Diagnosis Current: No (8) Morbid obesity with BMI of 40.0-44.9, adult Diagnosis Current: No Attendance: The patient's mother, Tejal Manzano. Resuscitation Status: Full Code Discussion: The patient's mother stopped me in the hallway today. She tells me that she has put a lot of thought into palliative care/hospice services and would like to have a meeting on Saturday between myself, her, and . Jackeline Chapis to discuss option of transition to hospice services. Ms. Manzano tells me that she had to sit with Jackeline throughout the dialysis session yesterday. Jackeline told her multiple times that she does not want to do dialysis anymore. Ms. Manzano states that she feels badly about having allowed the surgeons to do further debridement on the patient's abdominal wound; she is overwhelmed by the size of the wound and understands that Jackeline is in significant pain with all movement and wound changes. She reports that Jackeline has talked with her about not wanting to have wound care provided anymore due to pain. Ms. Manzano expresses that she believes Jackeline has indicated that she does not wish further medical interventions, and likely is unaware that hospice would be an option. She want to talk about palliative care/hospice with Jackeline so that she knows that she will be supported if she makes the choice to transition to Hospice services. Will meet with mother and Jackeline on Saturday per her request. Depending on discuss, will meet with education liaison on Saturday. Care Planning Goals: Goals of care discussion to be had with patient on Saturday followed by meeting with palliative care/operations liaison. Time Spent: 16
--- NOTE | 2018-10-18 15:02 | PDOC PROGRESS REPORT ---
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 The patient was seen on morning rounds. She is awake and alert; oriented x4, but drowsy. She states she has just received morphine for pain. She reports abdominal pain related to her wound. She denies fever, chills, chest pain, palpitations, dyspnea, orthopnea, abdominal pain, nausea, vomiting. She has no other questions or concerns today. No concerns per nursing Reason For Visit: HYPOTHERMIA,ESRD OBN DIALYSIS,LETHARGY Physical Exam Vital Signs: Temp Pulse Resp BP Pulse Ox 97.6 F 85 18 130/55 H 95 10/18/18 07:30 10/18/18 07:30 10/18/18 07:30 10/18/18 07:30 10/18/18 07:30 Intake & Output 10/17/18 10/18/18 10/19/18 06:59 06:59 06:59 Intake Total 2100 1519 Output Total 50 1500 Balance 2049 Weight 144 kg 145.7 kg General appearance: PRESENT: no acute distress, morbidly obese, well-developed, well-nourished Head exam: PRESENT: atraumatic, normocephalic Eye exam: PRESENT: conjunctiva pink, EOMI, PERRLA. ABSENT: scleral icterus Ear exam: PRESENT: normal external ear exam Mouth exam: PRESENT: moist, tongue midline Neck exam: ABSENT: carotid bruit, JVD, lymphadenopathy, thyromegaly Respiratory exam: PRESENT: clear to auscultation shira, decreased breath sounds - Diminished secondary to poor inspiratory effort, positioning, and body habitus, symmetrical, unlabored. ABSENT: rales, rhonchi, wheezes Cardiovascular exam: PRESENT: RRR, +S1, +S2. ABSENT: diastolic murmur, rubs, systolic murmur Pulses: PRESENT: normal dorsalis pedis pul Vascular exam: PRESENT: normal capillary refill GI/Abdominal exam: PRESENT: normal bowel sounds, soft. ABSENT: distended, guar ding, mass, organolmegaly, rebound, tenderness Rectal exam: PRESENT: deferred Extremities exam: PRESENT: full ROM. ABSENT: calf tenderness, clubbing, pedal edema Neurological exam: PRESENT: alert, awake, oriented to person, oriented to place, oriented to time, oriented to situation, CN II-XII grossly intact. ABSENT: motor sensory deficit Psychiatric exam: PRESENT: appropriate affect, normal mood. ABSENT: homicidal ideation, suicidal ideation Skin exam: PRESENT: dry, warm, other - Wound VAC to abdominal wound. ABSENT: cyanosis, rash Results Laboratory Results: 10/18/18 05:20 10/18/18 05:20 10/17/18 10/18/18 10/18/18 15:15 05:20 05:20 WBC 12.2 H RBC 2.74 L Hgb 7.8 L Hct 23.5 L MCV 86 MCH 28.3 MCHC 33.1 RDW 17.9 H Plt Count 232 Sodium 137.3 Potassium 3.7 Chloride 100 Carbon Dioxide 23 Anion Gap 14 BUN 18 Creatinine 6.39 H Est GFR ( Amer) 8 L Glucose 125 H Calcium 9.1 Blood Type O POSITIVE Antibody Screen NEGATIVE Impressions: Chest X-Ray 10/14/18 13:40 IMPRESSION: Limited exam secondary to rotation. Ill-defined left retrocardiac opacity possibly atelectasis or infection. Assessment and Plan - Diagnosis (1) SIRS (systemic inflammatory response syndrome) Is this a current diagnosis for this admission?: Yes Plan: Resolved. Patient has had normal temperature, acceptable blood pressure, normal heart rate and respiratory rate. Blood glucose is stabilized. Hypothermia, tachypnea, and lethargy have resolved. Better glucose today; no longer hypoglycemic. Patient was admitted with hypothermia, tachypnea, lethargy, hypoglycemia (although patient is insulin-dependent and has had reportedly poor appetite), and leukocytosis. Blood cultures are negative. Chest x-ray is unremarkable. Patient is admitted to the medical floor and continuous cardiac telemetry. Surgery consulted today; appreciate their assistance. Patient has empirically received IV vancomycin and Zosyn; per surgery, continue IV antibiotics Pharmacy to renally dose. (2) ESRD (end stage renal disease) on dialysis Is this a current diagnosis for this admission?: Yes Plan: Nephrology is consulted; dialysis per their expertise. Continue home dose Sevelamer, Sensipar, and and Nephrocaps. (3) Anemia in chronic kidney disease (CKD) Qualifiers: Chronic kidney disease stage: on chronic dialysis Qualified Code(s): N18.6 - End stage renal disease; D63.1 - Anemia in chronic kidney disease; Z99.2 - Dependence on renal dialysis Is this a current diagnosis for this admission?: Yes Plan: Hemoglobin is stable at 7.2. Has received 1 unit PRBC this admission Nephrology is consulted; erythropoietin per their expertise. (4) Calciphylaxis Is this a current diagnosis for this admission?: Yes Plan: S/p surgical debridement of abdominal wound by Dr. Pichardo. Blood cultures and antibiotics as above. Wound care per surgery's recommendations; currently has wound VAC in place (5) Diabetes mellitus type 2 in obese Is this a current diagnosis for this admission?: Yes Plan: Mother reports recent poor p.o. intake; will need to decrease the patient overall insulin dosing to match. Admitted with persistent hypoglycemia requiring D5NS maintenance fluids; have been discontinued. Blood glucose overall acceptable last 24 hours 143-236 Accuchek ACHS Sliding Scale Insulin only; hold all long acting related to poor appetite/p.o. intake. Hypoglycemia protocol. (6) Hypothermia Qualifiers: Encounter type: initial encounter Qualified Code(s): T68.XXXA - Hypotherm ia, initial encounter Is this a current diagnosis for this admission?: Yes Plan: Resolved. Secondary to #1. Remaining evaluation and management as above. (7) Hypoglycemia Is this a current diagnosis for this admission?: Yes Plan: Resolved. Likely secondary to poor p.o. intake with continued long-acting insulin at SNF prior to arrival. Evaluation of infectious processes with cultures and antibiotics as above. IVF discontinued. Continue to monitor accu-cheks ACHS. Hypoglycemia protocol in place. (8) Morbid obesity with BMI of 40.0-44.9, adult Is this a current diagnosis for this admission?: Yes Plan: Patient has morbid obesity with a BMI of 42.4. Her poor nutritional status complicates her wound healing and puts her at risk for development of additional skin wounds and pneumonia. Increased staffing is required for patient mobility/safety. Patient has been placed on a specialty bed. - Time Time Spent with patient: 15-24 minutes Medications reviewed and adjusted accordingly: Yes Anticipated discharge: Home with Homehealth - vs w/ hospice Within: within 72 hours
[2018-10-18] MEDS: FOLIC ACID/VITAMIN B COMP W-C CAPSULE PO SCH (17:18)
[2018-10-18] MEDS: CINACALCET HCL 30 MG TABLET PO SCH (17:20)
[2018-10-18] MEDS: VANCOMYCIN HCL INJ 500 MG VIAL PO SCH (17:20)
[2018-10-19] MEDS: VANCOMYCIN HCL INJ 500 MG VIAL PO SCH ×5 (00:33→23:12)
[2018-10-19] MEDS: HYDRALAZINE HCL 50 MG TABLET PO SCH ×3 (05:36→21:17)
[2018-10-19] MEDS: PIPERACILLIN SODIUM/TAZOBACTAM 2.25 GM in NORMAL SALINE 50 ML IV SCH ×2 (05:36→16:43)
[2018-10-19] MEDS: OXYCODONE HCL IR 5 MG TABLET PO PRN (05:36)
[2018-10-19] MEDS: PANTOPRAZOLE SODIUM 20 MG TABLET.DR PO SCH (05:37)
[2018-10-19] MEDS: HEPARIN SOD (PORCINE) 5,000 UNIT/ML 1 ML VIAL SUBCUT SCH ×3 (05:37→21:16)
[2018-10-19] MEDS: INSULIN LISPRO 100 UNIT/ML 3 ML VIAL SUBCUT SCH ×4 (08:00→21:09)
[2018-10-19] MEDS: SEVELAMER HCL 800 MG TABLET PO SCH ×2 (08:06→16:42)
[2018-10-19] MEDS: METOCLOPRAMIDE HCL 10 MG TABLET PO SCH ×3 (08:06→16:42)
[2018-10-19] MEDS: DOCUSATE SODIUM 100 MG CAPSULE PO SCH ×2 (09:17→17:03)
[2018-10-19] MEDS: CARVEDILOL 12.5 MG TABLET PO SCH ×2 (09:19→21:16)
[2018-10-19] MEDS: PREGABALIN 75 MG CAPSULE PO SCH ×2 (09:19→21:16)
[2018-10-19] MEDS: FLUTICASONE/VILANTEROL 200-25 MCG/DOSE IH SCH (09:20)
--- NOTE | 2018-10-19 13:19 | PDOC PROGRESS REPORT ---
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 The patient was seen on morning rounds with her mother present. She was sleeping but woke easily when I set her name. She does not open her eyes, is minimally conversational, but does answer all questions. She states that she is feeling tired today. She denies pain. She has had 4 diarrheal bowel movements last 24 hours. Otherwise, she denies fever, chills, chest pain, palpitations, dyspnea, orthopnea, abdominal pain, nausea, vomiting. She has no questions or concerns. No concerns per nursing Reason For Visit: HYPOTHERMIA,ESRD OBN DIALYSIS,LETHARGY Physical Exam Vital Signs: Temp Pulse Resp BP Pulse Ox 98.1 F 87 19 131/43 H 99 10/19/18 11:47 10/19/18 11:47 10/19/18 08:32 10/19/18 11:47 10/19/18 11:47 Intake & Output 10/18/18 10/19/18 10/20/18 06:59 06:59 06:59 Intake Total 1519 220 Output Total 1500 0 Balance 19 220 Weight 145.7 kg 148.2 kg General appearance: PRESENT: no acute distress, morbidly obese, well-developed, well-nourished Head exam: PRESENT: atraumatic, normocephalic Ear exam: PRESENT: normal external ear exam Mouth exam: PRESENT: dry mucosa, tongue midline Teeth exam: PRESENT: poor dentation Respiratory exam: PRESENT: clear to auscultation shira, decreased breath sounds - Bibasilar secondary to body habitus, respiratory effort, and positioning, symmetrical, unlabored. ABSENT: rales, rhonchi, wheezes Cardiovascular exam: PRESENT: RRR. ABSENT: diastolic murmur, rubs, systolic murmur Pulses: PRESENT: normal dorsalis pedis pul Vascular exam: PRESENT: normal capillary refill GI/Abdominal exam: PRESENT: hyperactive bowel sounds, soft. ABSENT: distended, guarding, mass, organolmegaly, rebound, tenderness Rectal exam: PRESENT: deferred Extremities exam: PRESENT: full ROM. ABSENT: calf tenderness, clubbing, pedal edema Neurological exam: PRESENT: alert, awake, oriented to person, oriented to place, oriented to time, oriented to situation, CN II-XII grossly intact, other - Lethargic. ABSENT: motor sensory deficit Psychiatric exam: PRESENT: depressed, flat affect - Withdrawn. ABSENT: homicidal ideation, suicidal ideation Skin exam: PRESENT: dry, intact, warm. ABSENT: cyanosis, rash Results Laboratory Results: 10/18/18 05:20 10/18/18 05:20 Impressions: Chest X-Ray 10/14/18 13:40 IMPRESSION: Limited exam secondary to rotation. Ill-defined left retrocardiac opacity possibly atelectasis or infection. Assessment and Plan - Diagnosis (1) SIRS (systemic inflammatory response syndrome) Is this a current diagnosis for this admission?: Yes Plan: Resolved. Patient has had normal temperature, acceptable blood pressure, normal heart rate and respiratory rate. Blood glucose is stabilized. Hypothermia, tachypnea, and lethargy have resolved. Better glucose today; no longer hypoglycemic. Patient was admitted with hypothermia, tachypnea, lethargy, hypoglycemia (although patient is insulin-dependent and has had reportedly poor appetite), and leukocytosis. Blood cultures are negative. Chest x-ray is unremarkable. Patient is admitted to the medical floor and continuous cardiac telemetry. Surgery consulted; appreciate their assistance. Patient has empirically received IV vancomycin and Zosyn; per surgery, continue IV antibiotics Pharmacy to renally dose. (2) ESRD (end stage renal disease) on dialysis Is this a current diagnosis for this admission?: Yes Plan: Nephrology is consulted; dialysis per their expertise. Continue home dose Sevelamer, Sensipar, and and Nephrocaps. (3) Anemia in chronic kidney disease (CKD) Qualifiers: Chronic kidney disease stage: on chronic dialysis Qualified Code(s): N18.6 - End stage renal disease; D63.1 - Anemia in chronic kidney disease; Z99.2 - Dependence on renal dialysis Is this a current diagnosis for this admission?: Yes Plan: Hemoglobin is stable at 7.8. Has received 1 unit PRBC this admission Nephrology is consulted; erythropoietin per their expertise. (4) Calciphylaxis Is this a current diagnosis for this admission?: Yes Plan: S/p surgical debridement of abdominal wound by Dr. Pichardo. Blood cultures and antibiotics as above. Wound care per surgery's recommendations; currently has wound VAC in place (5) Diabetes mellitus type 2 in obese Is this a current diagnosis for this admission?: Yes Plan: Mother reports recent poor p.o. intake; will need to decrease the patient overall insulin dosing to match. Admitted with persistent hypoglycemia requiring D5NS maintenance fluids; have been discontinued. Blood glucose overall acceptable last 24 hours 143-236 Accuchek ACHS Sliding Scale Insulin only; hold all long acting related to poor appetite/p.o. intake. Hypoglycemia protocol. (6) Hypothermia Qualifiers: Encounter type: initial encounter Qualified Code(s): T68.XXXA - Hypotherm ia, initial encounter Is this a current diagnosis for this admission?: Yes Plan: Resolved. Secondary to #1. Remaining evaluation and management as above. (7) Hypoglycemia Is this a current diagnosis for this admission?: Yes Plan: Resolved. Likely secondary to poor p.o. intake with continued long-acting insulin at SNF prior to arrival. Evaluation of infectious processes with cultures and antibiotics as above. IVF discontinued. Continue to monitor accu-cheks ACHS. Hypoglycemia protocol in place. (8) Morbid obesity with BMI of 40.0-44.9, adult Is this a current diagnosis for this admission?: Yes Plan: Patient has morbid obesity with a BMI of 42.4. Her poor nutritional status complicates her wound healing and puts her at risk for development of additional skin wounds and pneumonia. Increased staffing is required for patient mobility/safety. Patient has been placed on a specialty bed.
[2018-10-19] MEDS: CINACALCET HCL 30 MG TABLET PO SCH (16:42)
[2018-10-19] MEDS: FOLIC ACID/VITAMIN B COMP W-C CAPSULE PO SCH (16:50)
[2018-10-20 04:41] LABS: HEMATOCRIT 24.1 % (36.0-47.0); MEAN CORPUSCULAR HGB CONC 32.8 g/dL (32.0-36.0); MEAN CORPUSCULAR VOLUME 86 fl (80-97); PLATELET COUNT 246 10^3/uL (150-450); RED BLOOD COUNT 2.82 10^6/uL (3.72-5.28); RED CELL DISTRIBUTION WIDTH 18.4 % (11.5-14.0); WHITE BLOOD COUNT 10.3 10^3/uL (4.0-10.5)
[2018-10-20 04:43] LABS: HEMOGLOBIN 7.9 g/dL (12.0-15.5)
[2018-10-20 04:56] LABS: ANION GAP 17 (5-19); BLOOD UREA NITROGEN 26 mg/dL (7-20); CALCIUM 9.5 mg/dL (8.4-10.2); CARBON DIOXIDE 21 mmol/L (22-30); CHLORIDE 99 mmol/L (98-107); GLUCOSE 145 mg/dL (75-110); POTASSIUM 4.5 mmol/L (3.6-5.0)
[2018-10-20] MEDS ORDERED: HEPARIN SOD (PORCINE) 1,000 UNIT/ML 10 ML VIAL IV PRN (05:00)
[2018-10-20] MEDS ORDERED: NORMAL SALINE 1000 ML 1,000 ML IV PRN (05:00)
[2018-10-20] MEDS: HYDRALAZINE HCL 50 MG TABLET PO SCH ×3 (05:17→21:24)
[2018-10-20] MEDS: VANCOMYCIN HCL INJ 500 MG VIAL PO SCH ×2 (05:17→12:00)
[2018-10-20] MEDS: PANTOPRAZOLE SODIUM 20 MG TABLET.DR PO SCH (05:18)
[2018-10-20] MEDS: PIPERACILLIN SODIUM/TAZOBACTAM 2.25 GM in NORMAL SALINE 50 ML IV SCH (05:18)
[2018-10-20] MEDS: HEPARIN SOD (PORCINE) 5,000 UNIT/ML 1 ML VIAL SUBCUT SCH ×3 (05:18→21:26)
[2018-10-20] MEDS: INSULIN LISPRO 100 UNIT/ML 3 ML VIAL SUBCUT SCH ×4 (08:11→21:23)
[2018-10-20] MEDS: METOCLOPRAMIDE HCL 10 MG TABLET PO SCH ×3 (08:12→16:48)
[2018-10-20] MEDS: SEVELAMER HCL 800 MG TABLET PO SCH ×2 (08:12→16:47)
[2018-10-20] MEDS: EPOETIN ALFA-EPBX 20,000 UNIT in SYRINGE, DISPOSABLE, 1 EACH IV PRN (09:09)
[2018-10-20] MEDS: OXYCODONE HCL IR 5 MG TABLET PO PRN ×2 (09:25→21:25)
[2018-10-20] MEDS: NORMAL SALINE IV SCH (10:17)
[2018-10-20] MEDS: SODIUM THIOSULFATE IV SCH (10:17)
--- NOTE | 2018-10-20 10:21 | PDOC PROGRESS REPORT ---
Subjective Progress Note for:: 10/20/18 Subjective:: I am seeing the patient during dialysis this morning. She is somewhat lethargic but answers questions appropriately. She is so far tolerating dialysis and is cooperative. No complaints during dialysis at this time. I have spoken to Na Melgoza who told me that the mother would like to talk more about possible hospice care. I mentioned this to the patient upon conversation this morning and explained to her what hospice care means which could include discontinuation of all treatment including IV antibiotics, sodium thiosulfate and dialysis treatment. When I mention dose the patient just looks at me and does not seem to know what she would really be deciding on. So I encouraged her to think about it very carefully before she decides on anything. Reason For Visit: HYPOTHERMIA,ESRD OBN DIALYSIS,LETHARGY Physical Exam Vital Signs: Temp Pulse Resp BP Pulse Ox 98.7 F 85 20 134/57 H 95 10/20/18 07:46 10/20/18 07:46 10/20/18 07:46 10/20/18 07:46 10/20/18 07:46 Intake & Output 10/19/18 10/20/18 10/21/18 06:59 06:59 06:59 Intake Total 220 300 Output Total 0 0 Balance 220 300 Weight 148.2 kg 145.7 kg Vitals during dialysis: Blood pressure 114/58, heart rate of 72, blood flow rate of 350 mL/min and dialysate flow rate of 800ml/min. Exam: General appearance: PRESENT: no acute distress, cooperative, well-developed, well-nourished, somewhat lethargic Head exam: PRESENT: atraumatic, normocephalic Eye exam: PRESENT: conjunctiva pale, PERRLA. ABSENT: scleral icterus Neck exam: ABSENT: JVD Respiratory exam: PRESENT: Diminished breath sounds. ABSENT: crackles, rales, rhonchi, unlabored, wheezes Cardiovascular exam: PRESENT: Regular rate rhythm -+S1, +S2. ABSENT: diastolic murmur, systolic murmur GI/Abdominal exam: PRESENT: normal bowel sounds, soft. Wound VAC over her right lower quadrant abdominal wall wound in place ABSENT: guarding, mass, tenderness Extremities exam: ABSENT: No edema Neurological exam: PRESENT: Lethargic but responsive to questions, oriented to person, place and time. Skin exam: PRESENT: dry, warm, Cardiovascular exam: PRESENT: +S1, +S2 GI/Abdominal exam: PRESENT: normal bowel sounds, soft, tenderness - Mild tenderness around the extensor large wound site. She is got a wound VAC on it.. ABSENT: organomegaly Results Laboratory Results: 10/20/18 03:26 10/20/18 03:26 10/20/18 10/20/18 03:26 03:26 WBC 10.3 RBC 2.82 L Hgb 7.9 L Hct 24.1 L MCV 86 MCH 28.0 MCHC 32.8 RDW 18.4 H Plt Count 246 Sodium 137.0 Potassium 4.5 Chloride 99 Carbon Dioxide 21 L Anion Gap 17 BUN 26 H Creatinine 8.45 H Est GFR ( Amer) 6 L Glucose 145 H Calcium 9.5 10/14/18 16:54 Blood Blood Culture - Final NO GROWTH IN 5 DAYS 10/14/18 14:10 Blood Blood Culture - Final NO GROWTH IN 5 DAYS Impressions: Chest X-Ray 10/14/18 13:40 IMPRESSION: Limited exam secondary to rotation. Ill-defined left retrocardiac opacity possibly atelectasis or infection. Assessment & Plan - Diagnosis (1) ESRD (end stage renal disease) on dialysis Is this a current diagnosis for this admission?: Yes Plan: We will do dialysis today for 3 hours, using the patient's PermCath, with 2 pot assium bath, blood flow rate of 350 mL per minute, dialysate flow rate of 800 mL per minute, ultrafiltration 2 L as tolerated, no heparin and Procrit with 20,000 units during dialysis intravenously. Patient will be continuously monitored throughout dialysis treatment by our dialysis nurses. (2) Calciphylaxis Is this a current diagnosis for this admission?: Yes Plan: Continue sodium thiosulfate 25 g IV q. dialysis treatment. (3) SIRS (systemic inflammatory response syndrome) Is this a current diagnosis for this admission?: Yes Plan: Patient is on IV Zosyn and vancomycin. (4) Anemia in chronic kidney disease (CKD) Qualifiers: Chronic kidney disease stage: on chronic dialysis Qualified Code(s): N18.6 - End stage renal disease; D63.1 - Anemia in chronic kidney disease; Z99.2 - Dependence on renal dialysis Is this a current diagnosis for this admission?: Yes Plan: We will give the patient Procrit today. Status post 1 unit of packed RBCs transfusion this admission. (5) Abdominal wall abscess Is this a current diagnosis for this admission?: Yes Plan: Continue wound care per surgery service. (6) Abdominal pain Qualifiers: Abdominal location: right lower quadrant Qualified Code(s): R10.31 - Right lower quadrant pain Is this a current diagnosis for this admission?: Yes Plan: Continue the least pain medication that she needs so as to avoid affecting her mental state. (7) Diabetes mellitus type 2 in obese Is this a current diagnosis for this admission?: Yes (8) Hypertension Qualifiers: Hypertension type: essential hypertension Qualified Code(s): I10 - Essential (primary) hypertension Is this a current diagnosis for this admission?: Yes (9) Morbid obesity with BMI of 40.0-44.9, adult Is this a current diagnosis for this admission?: Yes - Time Time with patient: 15-25 minutes
[2018-10-20] MEDS: FLUTICASONE/VILANTEROL 200-25 MCG/DOSE IH SCH (11:18)
[2018-10-20] MEDS: PREGABALIN 75 MG CAPSULE PO SCH ×2 (11:19→21:28)
[2018-10-20] MEDS: DOCUSATE SODIUM 100 MG CAPSULE PO SCH ×2 (11:19→17:11)
[2018-10-20] MEDS: CARVEDILOL 12.5 MG TABLET PO SCH ×2 (11:59→21:25)
[2018-10-20] MEDS ORDERED: OXYCODONE HCL IR 5 MG TABLET PO ONE (14:14)
--- NOTE | 2018-10-20 15:45 | PDOC PROGRESS REPORT ---
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 The patient was seen on afternoon rounds with her mother present following dialysis. She is minimally conversational, but does answer all questions. She states that she is feeling tired today. She denies pain. Did attempt to discuss palliative care/hospice services. Unfortunately, the patient closed her eyes and turned her head away when I brought up the subject. She stated that she did not want to talk about it. I did clarify that she was telling me that she did not wish to discuss what she would want us to do if she were to become seriously or acutely sick or to discuss how she would like for her health care to be delivered as she has recently declined multiple wound care and dialysis interventions. The patient nodded her head yes and said, " I do not want to talk about this right now." The patient was encouraged to talk with her mother and to let nursing know if she wished to explore with these options might look like. She was informed that she would not be charged based on her choices and that we will continue to provide the best care possible within her expressed desires. Otherwise, she denies fever, chills, chest pain, palpitations, dyspnea, orthopnea, abdominal pain, nausea, vomiting. She has no questions or concerns. No concerns per nursing Reason For Visit: HYPOTHERMIA,ESRD OBN DIALYSIS,LETHARGY Physical Exam Vital Signs: Temp Pulse Resp BP Pulse Ox 98.7 F 85 20 134/57 H 95 10/20/18 07:46 10/20/18 14:00 10/20/18 07:46 10/20/18 07:46 10/20/18 07:46 Intake & Output 10/19/18 10/20/18 10/21/18 06:59 06:59 06:59 Intake Total 220 300 250 Output Total 0 0 2300 Balance 220 300 -2050 Weight 148.2 kg 145.7 kg General appearance: PRESENT: no acute distress, morbidly obese, well-developed, well-nourished Head exam: PRESENT: atraumatic, normocephalic Eye exam: PRESENT: conjunctiva pink, EOMI, PERRLA. ABSENT: scleral icterus Ear exam: PRESENT: normal external ear exam Mouth exam: PRESENT: moist, tongue midline Teeth exam: PRESENT: poor dentation Neck exam: ABSENT: carotid bruit, JVD, lymphadenopathy, thyromegaly Respiratory exam: PRESENT: clear to auscultation shira, decreased breath sounds - Bibasilar secondary to body habitus, inspiratory effort, and positioning, symmetrical, unlabored. ABSENT: rales, rhonchi, wheezes Cardiovascular exam: PRESENT: RRR. ABSENT: diastolic murmur, rubs, systolic murmur Pulses: PRESENT: normal dorsalis pedis pul Vascular exam: PRESENT: normal capillary refill GI/Abdominal exam: PRESENT: normal bowel sounds, soft. ABSENT: distended, guarding, mass, organolmegaly, rebound, tenderness Rectal exam: PRESENT: deferred Extremities exam: PRESENT: full ROM. ABSENT: calf tenderness, clubbing, pedal edema Neurological exam: PRESENT: alert, awake, oriented to person, oriented to place, oriented to time, oriented to situation, CN II-XII grossly intact. ABSENT: motor sensory deficit Psychiatric exam: PRESENT: depressed, flat affect - Withdrawn. ABSENT: homicidal ideation, suicidal ideation Skin exam: PRESENT: dry, warm, other - Large abdominal wound; wound VAC in place. ABSENT: cyanosis, rash Results Laboratory Results: 10/20/18 03:26 10/20/18 03:26 10/20/18 10/20/18 03:26 03:26 WBC 10.3 RBC 2.82 L Hgb 7.9 L Hct 24.1 L MCV 86 MCH 28.0 MCHC 32.8 RDW 18.4 H Plt Count 246 Sodium 137.0 Potassium 4.5 Chloride 99 Carbon Dioxide 21 L Anion Gap 17 BUN 26 H Creatinine 8.45 H Est GFR ( Amer) 6 L Glucose 145 H Calcium 9.5 10/14/18 16:54 Blood Blood Culture - Final NO GROWTH IN 5 DAYS 10/14/18 14:10 Blood Blood Culture - Final NO GROWTH IN 5 DAYS Impressions: Chest X-Ray 10/14/18 13:40 IMPRESSION: Limited exam secondary to rotation. Ill-defined left retrocardiac opacity possibly atelectasis or infection. Assessment and Plan - Diagnosis (1) SIRS (systemic inflammatory response syndrome) Is this a current diagnosis for this admission?: Yes Plan: Resolved. Patient has had normal temperature, acceptable blood pressure, normal heart rate and respiratory rate. Blood glucose is stabilized. Hypothermia, tachypnea, and lethargy have resolved. Better glucose today; no longer hypoglycemic. Leukocytosis has resolved. Patient was admitted with hypothermia, tachypnea, lethargy, hypoglycemia (although patient is insulin-dependent and has had reportedly poor appetite), and leukocytosis. Blood cultures are negative. Chest x-ray is unremarkable. Patient is admitted to the medical floor and continuous cardiac telemetry. Surgery consulted; appreciate their assistance. Patient has empirically received IV vancomycin and Zosyn. Will discontinue antibiotics today; Day #7. (2) ESRD (end stage renal disease) on dialysis Is this a current diagnosis for this admission?: Yes Plan: Nephrology is consulted; dialysis per their expertise. Continue home dose Sevelamer, Sensipar, and and Nephrocaps. (3) Anemia in chronic kidney disease (CKD) Qualifiers: Chronic kidney disease stage: on chronic dialysis Qualified Code(s): N18.6 - End stage renal disease; D63.1 - Anemia in chronic kidney disease; Z99.2 - Dependence on renal dialysis Is this a current diagnosis for this admission?: Yes Plan: Hemoglobin is stable at 7.9. Has received 1 unit PRBC this admission Nephrology is consulted; erythropoietin per their expertise. (4) Calciphylaxis Is this a current diagnosis for this admission?: Yes Plan: S/p surgical debridement of abdominal wound by Dr. Pichardo. Blood cultures and antibiotics as above. Wound care per surgery's recommendations; currently has wound VAC in place (5) Diabetes mellitus type 2 in obese Is this a current diagnosis for this admission?: Yes Plan: Mother reports recent poor p.o. intake; will need to decrease the patient overall insulin dosing to match. Admitted with persistent hypoglycemia requiring D5NS maintenance fluids; have been discontinued. Blood glucose overall acceptable last 24 hours 143-236 Accuchek ACHS Sliding Scale Insulin only; hold all long acting related to poor appetite/p.o. intake. Hypoglycemia protocol. (6) Hypothermia Qualifiers: Encounter type: initial encounter Qualified Code(s): T68.XXXA - Hypothermia, initial encounter Is this a current diagnosis for this admission?: Yes Plan: Resolved. Secondary to #1. Remaining evaluation and management as above. (7) Hypoglycemia Is this a current diagnosis for this admission?: Yes Plan: Resolved. Likely secondary to poor p.o. intake with continued long-acting insulin at SNF prior to arrival. Evaluation of infectious processes with cultures and antibiotics as above. IVF discontinued. Continue to monitor accu-cheks ACHS. Hypoglycemia protocol in place. (8) Morbid obesity with BMI of 40.0-44.9, adult Is this a current diagnosis for this admission?: Yes Plan: Patient has morbid obesity with a BMI of 42.4. Her poor nutritional status complicates her wound healing and puts her at risk for development of additional skin wounds and pneumonia. Increased staffing is required for patient mobility/safety. Patient has been placed on a specialty bed. (9) Debility Is this a current diagnosis for this admission?: Yes Plan: The patient requires a hospital bd due to requiring the head of the bed to be elevated more than 30 degrees most of the time due to her CHF, morbid obesity, and ORLIN. The patient also requires frequent changes in her body positioning due to this to prevent skin breakdown. PT consulted. - Time Time Spent with patient: 15-24 minutes Medications reviewed and adjusted accordingly: Yes Anticipated discharge: Home with Homehealth - vs w/ Hospice Within: within 48 hours - Plan Summary Plan Summary: I have discussed with case management; hospice referral placed. We will ask the account liaison hospice to meet with the patient and family; perhaps she will be more successful in engaging the patient in a goal of care discussion.
[2018-10-20] MEDS: FOLIC ACID/VITAMIN B COMP W-C CAPSULE PO SCH (16:48)
[2018-10-20] MEDS: CINACALCET HCL 30 MG TABLET PO SCH (16:48)
[2018-10-20] MEDS: ACETAMINOPHEN 325 MG TABLET PO PRN (16:52)
[2018-10-20] MEDS: PROMETHAZINE HCL INJ 25 MG/1 ML VIAL IV PRN (21:24)
[2018-10-21 05:42] LABS: HEMATOCRIT 23.2 % (36.0-47.0); MEAN CORPUSCULAR HEMOGLOBIN 27.6 pg (27.0-33.4); MEAN CORPUSCULAR HGB CONC 32.7 g/dL (32.0-36.0); MEAN CORPUSCULAR VOLUME 85 fl (80-97); PLATELET COUNT 223 10^3/uL (150-450); RED BLOOD COUNT 2.75 10^6/uL (3.72-5.28); RED CELL DISTRIBUTION WIDTH 18.4 % (11.5-14.0); WHITE BLOOD COUNT 11.5 10^3/uL (4.0-10.5)
[2018-10-21 05:52] LABS: HEMOGLOBIN 7.6 g/dL (12.0-15.5)
[2018-10-21 05:58] LABS: ANION GAP 15 (5-19); BLOOD UREA NITROGEN 19 mg/dL (7-20); CARBON DIOXIDE 23 mmol/L (22-30); CHLORIDE 98 mmol/L (98-107); GLUCOSE 128 mg/dL (75-110); POTASSIUM 3.9 mmol/L (3.6-5.0)
[2018-10-21] MEDS: PANTOPRAZOLE SODIUM 20 MG TABLET.DR PO SCH (06:10)
[2018-10-21] MEDS: HYDRALAZINE HCL 50 MG TABLET PO SCH ×3 (06:10→22:03)
[2018-10-21] MEDS: HEPARIN SOD (PORCINE) 5,000 UNIT/ML 1 ML VIAL SUBCUT SCH ×3 (06:10→22:04)
[2018-10-21] MEDS: INSULIN LISPRO 100 UNIT/ML 3 ML VIAL SUBCUT SCH ×4 (11:58→22:04)
[2018-10-21] MEDS: DOCUSATE SODIUM 100 MG CAPSULE PO SCH ×2 (11:59→18:57)
[2018-10-21] MEDS: METOCLOPRAMIDE HCL 10 MG TABLET PO SCH ×3 (11:59→18:59)
[2018-10-21] MEDS: SEVELAMER HCL 800 MG TABLET PO SCH ×2 (11:59→18:59)
[2018-10-21] MEDS: OXYCODONE HCL IR 5 MG TABLET PO PRN (12:13)
[2018-10-21] MEDS: PROMETHAZINE HCL INJ 25 MG/1 ML VIAL IV PRN (12:13)
[2018-10-21] MEDS: CARVEDILOL 12.5 MG TABLET PO SCH ×2 (12:13→22:04)
[2018-10-21] MEDS: FLUTICASONE/VILANTEROL 200-25 MCG/DOSE IH SCH (12:14)
[2018-10-21] MEDS: PREGABALIN 75 MG CAPSULE PO SCH ×2 (12:14→22:04)
--- NOTE | 2018-10-21 12:56 | PDOC PROGRESS REPORT ---
Subjective Progress Note for:: 10/21/18 Subjective:: The patient's mother is at the bedside. HER-2 sons are visiting but just left to get something to eat. The patient is trying to get out of bed and has one leg hanging off the bed. She appears to be at her baseline cognitively. Reason For Visit: HYPOTHERMIA,ESRD OBN DIALYSIS,LETHARGY Physical Exam Vital Signs: Temp Pulse Resp BP Pulse Ox 98.3 F 84 20 128/38 H 97 10/21/18 12:16 10/21/18 12:16 10/21/18 12:16 10/21/18 12:16 10/21/18 12:16 Intake & Output 10/20/18 10/21/18 10/22/18 06:59 06:59 06:59 Intake Total 300 370 Output Total 0 2300 Balance 300 -1930 Weight 145.7 kg 142.9 kg General appearance: PRESENT: mild distress - Pain in the belly as they are rolling her to change the decubitus dressing, morbidly obese Head exam: PRESENT: atraumatic, normocephalic Eye exam: PRESENT: conjunctiva pale. ABSENT: scleral icterus Ear exam: PRESENT: normal external ear exam. ABSENT: bleeding, drainage Respiratory exam: PRESENT: clear to auscultation shira, symmetrical, unlabored. ABSENT: prolonged expiratory phas, rales, rhonchi, tachypnea, wheezes Cardiovascular exam: PRESENT: RRR, +S1, +S2, systolic murmur - 1/6 GI/Abdominal exam: PRESENT: diminished bowel sounds - Possibly due to body habitus, soft, tenderness - Significant tenderness around the VAC dressing. The VAC dressing is larger than several weeks ago when I last saw the patient. It extends across the abdomen., other - Pendulous abdomen Rectal exam: PRESENT: deferred Extremities exam: ABSENT: joint swelling, pedal edema Musculoskeletal exam: ABSENT: normal inspection - Extremities are consistent with her morbid obesity Neurological exam: PRESENT: alert, awake, oriented to person, oriented to place, oriented to situation Psychiatric exam: PRESENT: flat affect. ABSENT: agitated, anxious Focused psych exam: ABSENT: delusional, restlessness Skin exam: PRESENT: other - There are several pale denuded areas under each breast and near the left groin. There is appear to be early calciphylaxis lesions. Results Laboratory Results: 10/21/18 05:10 10/21/18 05:10 10/21/18 10/21/18 05:10 05:10 WBC 11.5 H RBC 2.75 L Hgb 7.6 L Hct 23.2 L MCV 85 MCH 27.6 MCHC 32.7 RDW 18.4 H Plt Count 223 Sodium 136.0 L Potassium 3.9 Chloride 98 Carbon Dioxide 23 Anion Gap 15 BUN 19 Creatinine 6.67 H Est GFR ( Amer) 8 L Glucose 128 H Calcium 9.0 Impressions: Chest X-Ray 10/14/18 13:40 IMPRESSION: Limited exam secondary to rotation. Ill-defined left retrocardiac opacity possibly atelectasis or infection. Assessment and Plan - Diagnosis (1) SIRS (systemic inflammatory response syndrome) Is this a current diagnosis for this admission?: Yes Plan: Resolved. Patient has had normal temperature, acceptable blood pressure, normal heart rate and respiratory rate. Blood glucose is stabilized. Hypothermia, tachypnea, and lethargy have resolved. Better glucose today; no longer hypoglycemic. Leukocytosis has resolved. Patient was admitted with hypothermia, tachypnea, lethargy, hypoglycemia (although patient is insulin-dependent and has had reportedly poor appetite), and leukocytosis. Blood cultures are negative. Chest x-ray is unremarkable. Patient is admitted to the medical floor and continuous cardiac telemetry. Surgery consulted; appreciate their assistance. Patient has empirically received IV vancomycin and Zosyn. Will discontinue antibiotics today; Day #7. 10/21/2018-systemic inflammatory response syndrome resolved. The patient completed a full course of vancomycin and Zosyn. (2) ESRD (end stage renal disease) on dialysis Is this a current diagnosis for this admission?: Yes Plan: Nephrology is consulted; dialysis per their expertise. Continue home dose Sevelamer, Sensipar, and and Nephrocaps. 10/21/2018-the patient will continue with her hemodialysis at this point. (3) Anemia in chronic kidney disease (CKD) Qualifiers: Chronic kidney disease stage: on chronic dialysis Qualified Code(s): N18.6 - End stage renal disease; D63.1 - Anemia in chronic kidney disease; Z99.2 - Dependence on renal dialysis Is this a current diagnosis for this admission?: Yes Plan: Hemoglobin is stable at 7.9. Has received 1 unit PRBC this admission Nephrology is consulted; erythropoietin per their expertise. 10/21/2018-hemoglobin 7.6 today. The patient typically is in the high sevens low 8 range. Erythropoietin per nephrology. Continue to monitor hemoglobin. (4) Calciphylaxis Is this a current diagnosis for this admission?: Yes Plan: 10/21/2018-the patient has undergone additional debridement of the abdominal wound. Now the abdominal wound stretches across the entirety of her belly. It is significantly bigger than when I last saw her several weeks ago. She also is showing denuded areas that appear to be early calciphylaxis lesions. These are located under both breasts as well as in the groin areas. Despite the aggressive care of the wound is only bigger. I did discuss the futility of trying to heal calciphylaxis wounds. The mother did state that she would not have the patient undergo any more surgery. We are anticipating a palliative care consult this afternoon. (5) Diabetes mellitus type 2 in obese Is this a current diagnosis for this admission?: Yes Plan: Mother reports recent poor p.o. intake; will need to decrease the patient overall insulin dosing to match. Admitted with persistent hypoglycemia requiring D5NS maintenance fluids; have been discontinued. Blood glucose overall acceptable last 24 hours 143-236 Accuchek ACHS Sliding Scale Insulin only; hold all long acting related to poor appetite/p.o. intake. Hypoglycemia protocol. 10/21/2018-the patient is currently on sliding scale only. Accu-Cheks have been under 200 consistently. (6) Hypothermia Qualifiers: Encounter type: initial encounter Qualified Code(s): T68.XXXA - Hypothermia, initial encounter Is this a current diagnosis for this admission?: Yes Plan: Resolved. Secondary to #1. Remaining evaluation and management as above. 10/21/2018-hypothermia was related to her SIRS. Currently resolved. (7) Hypoglycemia Is this a current diagnosis for this admission?: Yes Plan: Resolved. Likely secondary to poor p.o. intake with continued long-acting insulin at SNF prior to arrival. Evaluation of infectious processes with cultures and antibiotics as above. IVF discontinued. Continue to monitor accu-cheks ACHS. Hypoglycemia protocol in place. 10/21/2018-the patient was previously on [facility] at the [facility]. She in fact had low glucose initially. The long-acting insulin was held. Her appetite has been diminished. We will continue the sliding scale and Accu-Cheks. As noted above the Accu-Cheks are below 200 but all are above 100. Hypoglycemia is resolved. (8) Morbid obesity with BMI of 40.0-44.9, adult Is this a current diagnosis for this admission?: Yes Plan: Patient has morbid obesity with a BMI of 42.4. Her poor nutritional status complicates her wound healing and puts her at risk for development of additional skin wounds and pneumonia. Increased staffing is required for patient mobility/safety. Patient has been placed on a specialty bed. 10/21/2018-BMI is currently 41.6. With the patient's incapacity it is unlikely that she will be able to lose a significant amount of weight as she is unable to exercise. (9) Debility Is this a current diagnosis for this admission?: Yes Plan: 10/21/2018-the patient is quite debilitated. Unfortunately she is minimally participatory with therapy. She stays in bed most of the day. There is very little chance of her achieving significant improvement with her poor participation. - Time Time Spent with patient: 15-24 minutes Medications reviewed and adjusted accordingly: Yes Within: Other - Palliative care will be seeing the patient. Discharging to home as well as home with hospice and inpatient hospice are all considerations.
[2018-10-21] MEDS: CINACALCET HCL 30 MG TABLET PO SCH (18:59)
[2018-10-21] MEDS: FOLIC ACID/VITAMIN B COMP W-C CAPSULE PO SCH (18:59)
--- NOTE | 2018-10-21 21:21 | ADVANCED CARE ---
- Diagnosis (1) SIRS (systemic inflammatory response syndrome) Diagnosis Current: Yes (2) ESRD (end stage renal disease) on dialysis Diagnosis Current: Yes (3) Anemia in chronic kidney disease (CKD) Diagnosis Current: Yes (4) Calciphylaxis Diagnosis Current: Yes (5) Diabetes mellitus type 2 in obese Diagnosis Current: Yes (6) Hypothermia Diagnosis Current: Yes (7) Hypoglycemia Diagnosis Current: Yes (9) Debility Diagnosis Current: Yes Attendance: The patient and her mother were present. Resuscitation Status: Full Code Discussion: Today's discussion revolved around the decision for discharge to home with home health versus discharge with home hospice versus inpatient hospice. Because of the complexity of her wounds it is unlikely that a long term facility will accept the patient. Long-term acute care hospital is also a consideration. To be able to get dialysis as well as aggressive wound care. Unfortunately I explained to the patient's mother that the calciphylaxis wound is not likely to heal. If you look at it over the last several months it is only gotten bigger with each surgical debridement. Now it spans the entire lower abdomen. It is very worrisome that she has new lesions that appear to be early calciphylaxis lesions as well. The patient's mother appreciates the poor prognosis. The patient did tell Dr. Moran that she wants to continue her dialysis. I think the mother appreciates the fact that the patient is not going get better but if the patient is requesting ongoing treatment then I do not believe the patient's mother will override that. Interestingly enough when we talked about the possibility of going home (a hospital bed has been ordered) we talked about discontinuing the VAC and using saline moist dressings. The patient's mother states that she would be unable to change the dressings but that her sister could. The patient's mother does not do well with open wounds. I explained that records need to be submitted to continue to utilize the VAC. If no progress is documented by measurements or by pictures typically [facility] will discontinue the VAC as it will no longer be supported as an effective treatment. The patient's father reports that her normal outpatient hemodialysis schedule is Saturday and Saturday. This would be amenable to Saturday, Saturday and Saturday VAC dressing changes. I would strongly recommend that the patient establish at the wound care center for ongoing management of the VAC in her wound. After discussing all of this the patient's mother is going to wait for the palliative care consult. Initially she was very hesitant but I told her that this meeting would provide her with information so that she can make educated decisions. I also encouraged discussion with the patient and her children so that everyone is able to provide input. Care Planning Goals: Goals will be to change her CODE STATUS to DNR and seriously consider hospice care. I was informed that the family did have the palliative care meeting. They have declined hospice care altogether. Due to the significant complexity of the wound as well as the patient's hemodialysis requirement we will consider long- term acute care hospital as an option. It does not change the fact that her prognosis is extremely poor. Document(s) Completed: None Time Spent: 25
[2018-10-22] MEDS ORDERED: NORMAL SALINE 1000 ML 1,000 ML IV PRN (05:00)
[2018-10-22] MEDS ORDERED: HEPARIN SOD (PORCINE) 1,000 UNIT/ML 10 ML VIAL IV PRN (05:00)
[2018-10-22] MEDS: HYDRALAZINE HCL 50 MG TABLET PO SCH ×2 (06:03→13:43)
[2018-10-22] MEDS: HEPARIN SOD (PORCINE) 5,000 UNIT/ML 1 ML VIAL SUBCUT SCH ×2 (06:03→13:43)
[2018-10-22] MEDS: PANTOPRAZOLE SODIUM 20 MG TABLET.DR PO SCH (06:04)
[2018-10-22] MEDS: METOCLOPRAMIDE HCL 10 MG TABLET PO SCH ×3 (08:16→17:09)
[2018-10-22] MEDS: SEVELAMER HCL 800 MG TABLET PO SCH ×2 (08:16→17:13)
[2018-10-22] MEDS: INSULIN LISPRO 100 UNIT/ML 3 ML VIAL SUBCUT SCH ×3 (08:16→17:06)
[2018-10-22] MEDS: DOCUSATE SODIUM 100 MG CAPSULE PO SCH ×2 (09:26→17:11)
[2018-10-22] MEDS: PREGABALIN 75 MG CAPSULE PO SCH (09:26)
[2018-10-22] MEDS: CARVEDILOL 12.5 MG TABLET PO SCH (09:26)
[2018-10-22] MEDS: FLUTICASONE/VILANTEROL 200-25 MCG/DOSE IH SCH (09:27)
[2018-10-22 09:28] LABS: ABSOLUTE EOSINOPHILS # (AUTO) 0.1 10^3/uL (0.0-0.6); ABSOLUTE LYMPHOCYTES (AUTO) 1.8 10^3/uL (0.5-4.7); ABSOLUTE MONOCYTES (AUTO) 0.8 10^3/uL (0.1-1.4); ABSOLUTE NEUT (AUTO) 8.8 10^3/uL (1.7-8.2); BASOPHILS % (AUTO) 0.4 % (0-2); EOSINOPHILS % (AUTO) 0.6 % (0-6); HEMATOCRIT 25.1 % (36.0-47.0); HEMOGLOBIN 8.3 g/dL (12.0-15.5); MEAN CORPUSCULAR HEMOGLOBIN 29.3 pg (27.0-33.4); PLATELET COUNT 213 10^3/uL (150-450); RED BLOOD COUNT 2.83 10^6/uL (3.72-5.28); RED CELL DISTRIBUTION WIDTH 18.7 % (11.5-14.0); TOTAL CELLS COUNTED % (AUTO) 100 %; WHITE BLOOD COUNT 11.5 10^3/uL (4.0-10.5)
[2018-10-22 09:30] LABS: MEAN CORPUSCULAR VOLUME 89 fl (80-97)
[2018-10-22 09:44] LABS: BLOOD UREA NITROGEN 24 mg/dL (7-20); CALCIUM 9.3 mg/dL (8.4-10.2); CHLORIDE 96 mmol/L (98-107); GLUCOSE 171 mg/dL (75-110)
[2018-10-22 09:49] LABS: CARBON DIOXIDE 20 mmol/L (22-30)
[2018-10-22 09:52] LABS: ANION GAP 20 (5-19)
[2018-10-22] MEDS: ACETAMINOPHEN 325 MG TABLET PO PRN ×2 (09:55→17:12)
[2018-10-22] MEDS: EPOETIN ALFA-EPBX 20,000 UNIT in SYRINGE, DISPOSABLE, 1 EACH IV PRN (10:34)
[2018-10-22] MEDS: NORMAL SALINE IV SCH (11:07)
[2018-10-22] MEDS: SODIUM THIOSULFATE IV SCH (11:07)
--- NOTE | 2018-10-22 15:20 | PDOC TRANSFER SUMMARY ---
General Admission Date/PCP: 10/14/18 16:08 MARTIN MONTERO MD Admission Date: 10/14/18 Transfer Date: 10/22/18 Accepting Facility: Other ([facility]) - [facility] care [facility] Accepting Physician: Dr. Kristal Kraft Resuscitation Status: Full Code - Transfer Diagnosis (1) SIRS (systemic inflammatory response syndrome) Is this a current diagnosis for this admission?: Yes Diagnosis Summary: The [facility] was at a [facility] facility from October 07 to October 14 after a prolonged stay at [facility] (September 16 through October 07). She was at hemodialysis and was noted to be lethargic and Accu-Chek revealed hypoglycemia. It was 67 but for her that it is lower than usual. She was also hypothermic, tachypnea and somewhat lethargic. She exhibited the hypoglycemia as noted above and blood work revealed leukocytosis. There was no obvious infectious site. Chest x-ray was unremarkable. She does have the large calciphylaxis wound on her abdomen and this certainly could have contributed. She was initiated on vancomycin and Zosyn for possible infection. She also received gentle fluids giving consideration to her end-stage renal disease. After several days with stabilization of her glucose (Lantus dose was decreased) and improvements in her mental status, appetite and body temperature the systemic inflammatory response syndrome resolved. Several days after admission the patient did have stool serology which was positive for C. difficile and C. difficile certainly could have caused her symptoms. (2) ESRD (end stage renal disease) on dialysis Is this a current diagnosis for this admission?: Yes Diagnosis Summary: The patient has a history of end-stage renal disease. She was on peritoneal dialysis for a time. She was changed to hemodialysis I believe due to an inf ected peritoneal dialysis catheter. She typically tolerates her hemodialysis without difficulty. The episode prompting this hospitalization was likely due to too high of a dose of Lantus. As an outpatient she was on a Saturday, and Saturday schedule. While in inpatient she is on a Saturday, Saturday and Saturday schedule. Please see nephrology notes for further details. (3) Anemia in chronic kidney disease (CKD) Is this a current diagnosis for this admission?: Yes Diagnosis Summary: The patient's hemoglobin has been stable. Typically she runs between 7.5 and 8.5. Erythropoietin per nephrology. (4) Calciphylaxis Is this a current diagnosis for this admission?: Yes Diagnosis Summary: The patient was admitted in August for a calciphylaxis lesion on her abdomen. I believe she has had this for many months. She was surgically debrided and a neg ative pressure VAC dressing was applied. There was for the breakdown in the wound bed and she has had 2 subsequent debridements. She now has a large linear lesion across the abdomen. She has a VAC dressing at -125mmHg continuous negative pressure. We have been changing the dressings on Saturday, Saturday and Saturday. She would benefit from a dedicated wound care team with possibly other types of dressings. Hence the transfer to long-term acute [facility]. (5) Diabetes mellitus type 2 in obese Is this a current diagnosis for this admission?: Yes Diagnosis Summary: On sliding scale and diet the majority of the patient's Accu-Cheks have been under 200. Continue to monitor sliding scale requirements and consider low-dose long-acting insulin. (6) Hypothermia Is this a current diagnosis for this admission?: Yes Diagnosis Summary: Potentially several etiologies. With a heating blanket the patient's hypothermia resolved quickly. (7) Hypoglycemia Is this a current diagnosis for this admission?: Yes Diagnosis Summary: Most likely secondary to too high a dose of Lantus. I believe during the hospitalization from September 16 through October 07 she was on a lower dose than previous. She does have a history of dietary noncompliance and while hospitalized adhered to a better diet hence the lower requirement for Lantus. She has not had any episodes of hypoglycemia on the new regimen. (8) Morbid obesity with BMI of 40.0-44.9, adult Is this a current diagnosis for this admission?: Yes Diagnosis Summary: BMI of 42.1. I believe she has lost a small amount of weight between the 2 hospitalizations. Continue diabetic diet. (9) Debility Is this a current diagnosis for this admission?: Yes Diagnosis Summary: Because of the 2 hospitalizations and prison facility admission the patient has become weak and deconditioned. She will benefit from an aggressive physical therapy regimen. (10) C. difficile colitis Is this a current diagnosis for this admission?: Yes Diagnosis Summary: The patient was tested for C. difficile. It was positive. Vancomycin 125 mg by mouth 4 times a day has been prescribed. She is on contact precautions. - Transfer Medications Home Medications: Albuterol Sulfate [Ventolin Hfa 8 gm Mdi (1 Mdi/ER Disp)] 2 puff IH Q6HP PRN 09/17/18 Budesonide/Formoterol Fumarate [Symbicort HFA 160-4.5 mcg Inhaler 6 gm] 2 puff IH Q12 09/17/18 Hydralazine HCl 100 mg PO Q8 09/17/18 Metoclopramide HCl 5 mg PO MEALS 09/17/18 Oxycodone HCl [Roxicodone] 5 mg PO BIDP PRN 09/17/18 Pregabalin [Lyrica 75 mg Capsule] 75 mg PO Q12 09/17/18 Tramadol HCl [Ultram 50 mg Tablet] 50 mg PO TIDP PRN 09/17/18 Ipratropium/Albuterol Sulfate [Duoneb 3 ml Ampul] 3 ml NEB RTQ8HP PRN 10/14/18 Lactulose [Cephulac Syrup 20 gm/30 ml Udcup] 20 gm PO Q8HP PRN 10/14/18 Oxycodone HCl/Acetaminophen [Percocet 5-325 mg Tablet] 1 tab PO Q6HP PRN 10/14/18 Sevelamer HCl [Renagel 800 mg Tablet] 1,600 mg PO BID 10/14/18 Transfer Medications: Current Medications Acetaminophen (Tylenol 650 Mg Supp) 650 mg WV Q8HP PRN PRN Reason: FEVER >101 Stop: 11/15/18 07:23 Acetaminophen (Tylenol 325 Mg Tablet) 650 mg PO Q8HP PRN PRN Reason: FOR PAIN OR TEMP Stop: 11/15/18 07:23 Last Admin: 10/22/18 09:55 Dose: 650 mg Documented by: Al Hydrox/Mg Hydrox/Simethicone (Maalox Plus Susp 30 Udcup) 30 ml PO Q6HP PRN PRN Reason: HEARTBURN Stop: 11/13/18 16:39 Albuterol (Ventolin 0.083% Neb 2.5 Mg/3 Ml Ampul) 2.5 mg NEB RTQ6HP PRN PRN Reason: SHORTNESS OF BREATH Stop: 11/13/18 16:39 Albuterol/Ipratropium (Duoneb 3 Ml Ampul) 3 ml NEB RTQ8HP PRN PRN Reason: FOR SOB/WHEEZING Stop: 11/13/18 17:04 Carvedilol (Coreg 12.5 Mg Tablet) 25 mg PO Q12 MARCUS Stop: 11/13/18 21:59 Last Admin: 10/22/18 09:26 Dose: 25 mg Documented by: Cinacalcet (Sensipar 30 Mg Tablet) 30 mg PO WSUPPER MARCUS Stop: 11/14/18 16:59 Last Admin: 10/21/18 18:59 Dose: 30 mg Documented by: Dextrose (Dextrose Inj 50% Syringe (25 Gm/50 Ml)) 12.5 gm IV PRN PRN; Protocol PRN Reason: FOR BG 50-69 IN ALERT PATIENT Stop: 11/13/18 16:39 Dextrose (Dextrose Inj 50% Syringe (25 Gm/50 Ml)) 25 gm IV PRN PRN; Protocol PRN Reason: See Label Comments Stop: 11/13/18 16:39 Last Admin: 10/15/18 15:09 Dose: 25 gm Documented by: Docusate Sodium (Colace 100 Mg Capsule) 100 mg PO BID MARCUS Stop: 11/13/18 17:59 Last Admin: 10/22/18 09:26 Dose: Not Given Documented by: Fluticasone/Vilanterol (Breo 200-25 Mcg Ellipta 14 Dose/Dpi) 1 inh IH DAILY [facility] Stop: 11/14/18 09:59 Last Admin: 10/22/18 09:27 Dose: Not Given Documented by: Glucagon (Glucagen Inj 1 Mg Vial) 1 mg SUBCUT PRN PRN; Protocol PRN Reason: Evaluate for BG < 70 Stop: 11/13/18 16:39 Glucose (Glutose 40% Gel 15 Gm Tube) 15 gm PO PRN PRN; Protocol PRN Reason: For BG 50-69 in Alert Patient Stop: 11/13/18 16:39 Glucose (Glutose 40% Gel 15 Gm Tube) 30 gm PO PRN PRN; Protocol PRN Reason: FOR BG < 50 IN ALERT PATIENT Stop: 11/13/18 16:39 Heparin Sodium (Porcine) (Heparin Inj 5,000 Units/Ml 1 Ml Vial) 5,000 unit SUBCUT Q8 MARCUS Stop: 11/13/18 21:59 Last Admin: 10/22/18 13:43 Dose: Not Given Documented by: Heparin Sodium (Porcine) (Heparin Inj 1,000 Unit/Ml 10 Ml Vial) 4,800 unit IV .SPLIT B/N CATHETERS PRN PRN Reason: THIS MED IS NOT "PRN" Stop: 10/22/18 23:59 Last Admin: 10/22/18 13:16 Dose: 4,600 units Documented by: Hydralazine HCl (Apresoline 50 Mg Tablet) 100 mg PO Q8 [facility] Stop: 11/13/18 21:59 Last Admin: 10/22/18 13:43 Dose: Not Given Documented by: Sodium Thiosulfate 25 gm/ (Sodium Chloride) 250 mls @ 250 mls/hr IV PDIA@1000 [facility] Stop: 11/17/18 09:59 Last Admin: 10/22/18 11:07 Dose: Not Given Documented by: Epoetin Daniel-epbx 20,000 unit/ (Syringe) 2 mls @ 0 mls/hr IV .DIALYSIS PRN PRN Reason: THIS MED IS NOT "PRN" Stop: 11/18/18 21:24 Last Admin: 10/22/18 10:34 Dose: 20,000 mls/hr Documented by: Sodium Chloride (Nacl 0.9% 1000 Ml Iv Soln) 1,000 mls @ 0 mls/hr IV .DIALYSIS PRN PRN Reason: THIS MED IS NOT "PRN" Stop: 10/22/18 23:59 Insulin Human Lispro (Humalog Insulin 100 Unit/1 Ml 3 Ml Vial) 0 - [facility]; Protocol Stop: 11/13/18 21:59 Last Admin: 10/22/18 12:32 Dose: Not Given Documented by: Magnesium Hydroxide (Milk Of Magnesia 30 Ml Udcup) 30 ml PO HSP PRN PRN Reason: FOR CONSTIPATION Stop: 11/13/18 16:39 Metoclopramide HCl (Reglan 10 Mg Tablet) 5 mg PO MEALS [facility] Stop: 11/14/18 07:59 Last Admin: 10/22/18 12:33 Dose: Not Given Documented by: Multivit/Ca Carb/B Cmplx/FA/Prenat (Nephrocaps Multiple Vitamin Capsule) 1 cap PO ACSUPPER [facility] Stop: 11/14/18 15:59 Last Admin: 10/21/18 18:59 Dose: 1 cap Documented by: Ondansetron HCl (Zofran Inj/Pf 4 Mg/2 Ml Sdv) 4 mg IV Q6HP PRN PRN Reason: FOR NAUSEA/VOMITING Stop: 11/13/18 16:39 Pantoprazole Sodium (Protonix [address] Tablet) 20 mg PO Q6AM MARCUS Stop: 11/14/18 05:59 Last Admin: 10/22/18 06:04 Dose: Not Given Documented by: Pregabalin (Lyrica 75 Mg Capsule) 75 mg PO Q12 MARCUS Stop: 11/13/18 21:59 Last Admin: 10/22/18 09:26 Dose: 75 mg Documented by: Promethazine HCl (Phenergan Inj 25 Mg/1 Ml Vial) 6.25 mg IV Q4HP PRN PRN Reason: FOR UNRESOLVED NAUSEA/VOMITING Stop: 11/13/18 16:39 Last Admin: 10/21/18 12:13 Dose: 6.25 mg Documented by: Sevelamer HCl (Renagel 800 Mg Tablet) 1,600 mg PO BIDBS [facility] Stop: 11/16/18 08:14 Last Admin: 10/22/18 08:16 Dose: Not Given Documented by: - Allergies Allergies/Adverse Reactions: oxycodone HCl [From Percocet] Allergy (Verified 09/14/18 16:23) Nausea prochlorperazine edisylate [From Compazine] Allergy (Verified 09/14/18 16:23) Hallucinations propoxyphene napsylate [From Darvocet-N 100] Allergy (Verified 09/14/18 16:23) Hallucinations - Diet/Activity Discharge Diet: Diabetic, Other (Comments) - Renal/dialysis diet Discharge Activity: Activity As Tolerated, Weigh Daily Hospital Course Hospital Course: This is been a fairly unremarkable hospital course with the exception of the C. difficile. The patient has been tolerating her hemodialysis. Accu-Cheks have been, for the most part, under 200. The systemic inflammatory response syndrome resolved quickly. Ongoing chronic issues include her anemia of chronic kidney disease, sleep apnea (noncompliant with CPAP), obesity and asthma (asymptomatic during this hospitalization). Physical Exam Vital Signs: Temp Pulse Resp BP Pulse Ox 98.0 F 84 17 144/71 H 96 10/22/18 08:00 10/22/18 08:00 10/22/18 08:00 10/22/18 08:00 10/22/18 08:00 Intake & Output 10/21/18 10/22/18 10/23/18 06:59 06:59 06:59 Intake Total 370 100 200 Output Total 2300 0 2300 Balance -1930 100 -2100 Weight 142.9 kg 144.9 kg General appearance: PRESENT: no acute distress, cooperative, morbidly obese, well-developed Head exam: PRESENT: atraumatic, normocephalic Eye exam: PRESENT: conjunctiva pale. ABSENT: scleral icterus Ear exam: PRESENT: normal external ear exam. ABSENT: bleeding, drainage Mouth exam: PRESENT: moist, tongue midline Neck exam: PRESENT: other - Very large neck Respiratory exam: PRESENT: decreased breath sounds - Bilaterally due to body habitus, symmetrical, unlabored. ABSENT: rhonchi, tachypnea, wheezes Cardiovascular exam: PRESENT: RRR, +S1, +S2, other - Distant heart sounds due to body habitus GI/Abdominal exam: PRESENT: normal bowel sounds, soft, tenderness - Around the VAC dressing, other - Black foam VAC dressing present across the lower abdomen. Negative pressure is intact.. ABSENT: distended - Patient has a pendulous abdomen. Rectal exam: PRESENT: deferred Extremities exam: PRESENT: pedal edema Musculoskeletal exam: PRESENT: ambulatory - Ambulation is limited due to weakness and deconditioning, normal inspection Neurological exam: PRESENT: alert, awake, oriented to person, oriented to place, oriented to situation Psychiatric exam: PRESENT: flat affect. ABSENT: agitated, anxious Focused psych exam: ABSENT: delusional, restlessness Skin exam: PRESENT: dry, warm, other - Several denuded areas under each breast and in the groins. Difficult to know if this is early calciphylaxis or not. Defer to the wound care physicians at [facility] for further assessment.. ABSENT: rash Results Laboratory Results: 10/22/18 09:09 10/22/18 09:09 10/22/18 10/22/18 09:09 09:09 WBC 11.5 H RBC 2.83 L Hgb 8.3 L Hct 25.1 L MCV 89 D MCH 29.3 MCHC 33.0 RDW 18.7 H Plt Count 213 Seg Neutrophils % 76.0 Sodium 135.7 L Potassium 4.0 Chloride 96 L Carbon Dioxide 20 L Anion Gap 20 H BUN 24 H Creatinine 8.15 H Est GFR ( Amer) 6 L Glucose 171 H Calcium 9.3 Impressions: Chest X-Ray 10/14/18 13:40 IMPRESSION: Limited exam secondary to rotation. Ill-defined left retrocardiac opacity possibly atelectasis or infection. Plan Discharge Plan: The patient has been accepted by [facility]. Reasons for transfer or the very complex abdominal wound as well as her ongoing needs for dialysis. She will benefit from aggressive physical and occupational therapies. She will be transferring this evening. Time Spent: Greater than 30 Minutes
--- NOTE | 2018-10-22 16:08 | PDOC PROGRESS REPORT ---
Subjective Progress Note for:: 10/22/18 Subjective:: I saw the patient during dialysis this afternoon. Patient is awake and answering questions appropriately. He said she is sleepy and feels tired but otherwise no new complaints. She was tolerating dialysis when I saw her without any problems no complications. Reason For Visit: HYPOTHERMIA,ESRD OBN DIALYSIS,LETHARGY Physical Exam Vital Signs: Temp Pulse Resp BP Pulse Ox 98.0 F 84 17 144/71 H 96 10/22/18 08:00 10/22/18 08:00 10/22/18 08:00 10/22/18 08:00 10/22/18 08:00 Intake & Output 10/21/18 10/22/18 10/23/18 06:59 06:59 06:59 Intake Total 370 100 Output Total 2300 0 Balance -1930 100 Weight 142.9 kg 144.9 kg Exam: General appearance: PRESENT: no acute distress, cooperative, well-developed, well-nourished Head exam: PRESENT: atraumatic, normocephalic Eye exam: PRESENT: conjunctiva pale, PERRLA. ABSENT: scleral icterus Neck exam: ABSENT: JVD Respiratory exam: PRESENT: Normal breath sounds. ABSENT: crackles, rales, rhonchi, unlabored, wheezes Cardiovascular exam: PRESENT: Regular rate rhythm -+S1, +S2. ABSENT: diastolic murmur, systolic murmur GI/Abdominal exam: PRESENT: normal bowel sounds, soft. Wound VAC in place in the right lower quadrant area. ABSENT: guarding, mass, tenderness Extremities exam: ABSENT: No edema Neurological exam: PRESENT: alert, awake, oriented to person, place and time. Skin exam: PRESENT: dry, warm, Cardiovascular exam: PRESENT: +S1, +S2 GI/Abdominal exam: PRESENT: normal bowel sounds, soft, tenderness - Mild tenderness around the extensor large wound site. She is got a wound VAC on it.. ABSENT: organomegaly Results Laboratory Results: 10/22/18 09:09 10/22/18 09:09 10/22/18 10/22/18 09:09 09:09 WBC 11.5 H RBC 2.83 L Hgb 8.3 L Hct 25.1 L MCV 89 D MCH 29.3 MCHC 33.0 RDW 18.7 H Plt Count 213 Seg Neutrophils % 76.0 Sodium 135.7 L Potassium 4.0 Chloride 96 L Carbon Dioxide 20 L Anion Gap 20 H BUN 24 H Creatinine 8.15 H Est GFR ( Amer) 6 L Glucose 171 H Calcium 9.3 Impressions: Chest X-Ray 10/14/18 13:40 IMPRESSION: Limited exam secondary to rotation. Ill-defined left retrocardiac opacity possibly atelectasis or infection. Assessment & Plan - Diagnosis (1) ESRD (end stage renal disease) on dialysis Is this a current diagnosis for this admission?: Yes Plan: We will do dialysis today for 3 hours, using the patient's right IJ PermCath, with 3 potassium bath, blood flow rate of 350 mL per minute, dialysate flow rate of 800 mL per minute, ultrafiltration 2 L as tolerated, no heparin and Procrit with 20,000 units during dialysis intravenously. Patient will be monitored throughout dialysis treatment. (2) Calciphylaxis Is this a current diagnosis for this admission?: Yes Plan: Continue sodium thiosulfate 25 g IV q. dialysis treatment. Patient has started sodium thiosulfate treatment for her calciphylaxis on September 11 and needs to receive it for a total of 3 months at least and then reevaluate. So if she is going to be transferred to an acute long-term facility this needs to be continued at the same dose for a couple more months. (3) SIRS (systemic inflammatory response syndrome) Is this a current diagnosis for this admission?: Yes Plan: Patient was treated with IV Zosyn and vancomycin. (4) Anemia in chronic kidney disease (CKD) Qualifiers: Chronic kidney disease stage: on chronic dialysis Qualified Code(s): N18.6 - End stage renal disease; D63.1 - Anemia in chronic kidney disease; Z99.2 - Dependence on renal dialysis Is this a current diagnosis for this admission?: Yes Plan: We will give the patient Procrit today. Status post 1 unit of packed RBCs transfusion this admission. (5) Abdominal wall abscess Is this a current diagnosis for this admission?: Yes Plan: Continue wound care per surgery service. (6) Abdominal pain Qualifiers: Abdominal location: right lower quadrant Qualified Code(s): R10.31 - Right lower quadrant pain Is this a current diagnosis for this admission?: Yes Plan: Continue the least pain medication that she needs so as to avoid affecting her mental state. (7) Diabetes mellitus type 2 in obese Is this a current diagnosis for this admission?: Yes (8) Hypertension Qualifiers: Hypertension type: essential hypertension Qualified Code(s): I10 - Essential (primary) hypertension Is this a current diagnosis for this admission?: Yes (9) Morbid obesity with BMI of 40.0-44.9, adult Is this a current diagnosis for this admission?: Yes - Notes Notes: From nephrology standpoint I agree for transfer to long-term facility care with dialysis facility and wound care management who the patient can be better taken care of very closely in terms of her right lower quadrant abdominal wound due to calciphylaxis. Treatment for calciphylaxis with sodium thiosulfate should be continued for another 2 months. - Time Time with patient: 15-25 minutes
[2018-10-22 16:29] VITALS: BP 159/86
[2018-10-22] MEDS: FOLIC ACID/VITAMIN B COMP W-C CAPSULE PO SCH (17:13)
[2018-10-22] MEDS: CINACALCET HCL 30 MG TABLET PO SCH (17:16)
[2018-10-22] MEDS ORDERED: VANCOMYCIN HCL INJ 500 MG VIAL PO SCH (18:00)
== END 2018-10-22 18:32 | disposition short-term general hospital (02) | DRG 264 ==
LOC: ER 12:43 → EH 16:08 → 4S 18:49
PROVIDERS: ADMIT Family Medicine; ATTEND Family Medicine
PROC: 5A09457 Assistance with Respiratory Ventilation, 24-96 Consecutive Hours, Continuous Positive Airway Pressure (ICD-10-PCS; 2018-10-15)
PROC: 0JB80ZZ Excision of Abdomen Subcutaneous Tissue and Fascia, Open Approach (ICD-10-PCS; principal; 2018-10-16 13:00)
PROC: 30233N1 Transfusion of Nonautologous Red Blood Cells into Peripheral Vein, Percutaneous Approach (ICD-10-PCS; 2018-10-17)
DX: I13.2 Hypertensive heart and chronic kidney disease with heart failure and with stage 5 chronic kidney disease, or end stage renal disease (principal); N18.6 End stage renal disease; Z68.41 Body mass index [BMI] 40.0-44.9, adult; A04.72 Enterocolitis due to Clostridium difficile, not specified as recurrent; I50.32 Chronic diastolic (congestive) heart failure; N25.81 Secondary hyperparathyroidism of renal origin; L02.211 Cutaneous abscess of abdominal wall; D63.1 Anemia in chronic kidney disease; E83.59 Other disorders of calcium metabolism; T68.XXXA Hypothermia, initial encounter; E11.649 Type 2 diabetes mellitus with hypoglycemia without coma; E66.01 Morbid (severe) obesity due to excess calories; G47.33 Obstructive sleep apnea (adult) (pediatric); E78.5 Hyperlipidemia, unspecified; J44.9 Chronic obstructive pulmonary disease, unspecified; E11.21 Type 2 diabetes mellitus with diabetic nephropathy; E87.6 Hypokalemia; E83.39 Other disorders of phosphorus metabolism; K21.9 Gastro-esophageal reflux disease without esophagitis; F32.9 Major depressive disorder, single episode, unspecified; N28.89 Other specified disorders of kidney and ureter; E78.00 Pure hypercholesterolemia, unspecified; I25.2 Old myocardial infarction; Z99.2 Dependence on renal dialysis; Z79.899 Other long term (current) drug therapy; Z79.891 Long term (current) use of opiate analgesic; Z88.6 Allergy status to analgesic agent; Z88.8 Allergy status to other drugs, medicaments and biological substances; Z91.19 Patient's noncompliance with other medical treatment and regimen; Z79.4 Long term (current) use of insulin; Z83.3 Family history of diabetes mellitus; Z82.49 Family history of ischemic heart disease and other diseases of the circulatory system
CPT/HCPCS: 00800; 36415; 36430; 71045; 80048; 80053; 80202; 82803; 82962; 83605; 83735; 84100; 84443; 85025; 85027; 85610; 85730; 86850; 86900; 86901; 86920; 87040; 87493; 93005; 93010; 94660; 96365; 96375; 99285; J1644; J1815; J2250; J2270; J2543; J2550; J2704; J2765; J3010; J3370; J3490; J7042; J7050; J7060; P9016; Q5105; S0028